=== PATIENT | male | born 1975 | race Two or more races ===

== ENCOUNTER 2024-07-02 20:46 | Inpatient (IN) | payer MEDICAID, OTHER ==
[~2024-07-02] VITALS: Ht 182.9 cm; Wt 65.2 kg
--- NOTE | 2024-07-02 21:01 | ED.PDOC ---
Altered Mental Status HPI Comments 49 year old male came to ER via EMS due to ALOC. Per EMS, patient was picked up at home wherein patient was noted to acting altered, confused and disoriented the past few days. Noted increase in thirst, urination among others. Does have history of Diabetes and takes Metformin. Upon arrival of paramedics noted blood sugar read "high". No further information could be taken at this time of care. Chief Complaint: ALOC Time Seen by MD: 21:01 Reviewed Notes: Appeals Rn Notes Allergies: Coded Allergies: NO KNOWN ALLERGIES (Unverified , 07/02/24) Information Source: Emergency Med Personnel Mode of Arrival: EMS Severity: Unable to Care for Self, Unresponsive Timing: Hours Duration: Since onset Prehospital treatment: Accucheck Quality: Decreased Alertness, Change in Behavior, Confusion History of: Diabetes Past Medical History PAST MEDICAL HISTORY: DM Surgical History: Pt Confused Family History Family History: Pt Confused Social History Smoker: Pt Confused Alcohol: Pt Confused Drugs: Pt Confused Lives In: Home Unable to Obtain due to: Altered Mental Status Physical Exam General Appearance: Mild Distress, Other (arousable to pain) HEENT: Normal ENT Inspection, Pharynx Normal, TMs Normal Neck: Full Range of Motion, Non-Tender, Normal, Normal Inspection Respiratory: Chest Non-Tender, Lungs Clear, No Accessory Muscle Use, No Respiratory Distress, Normal Breath Sounds Cardiovascular: No Edema, No JVD, No Murmur, No Gallop, Normal Peripheral Pulses, Regular Rate/Rhythm Breast Exam: Deferred Gastrointestinal: No Organomegaly, Non Tender, No Pulsatile Mass, Normal Bowel Sounds, Soft Genitalia: Deferred Pelvic: Deferred Rectal: Deferred Extremities: No calf tenderness, Normal capillary refill, Normal range of motion, Non-tender, No pedal edema, Other (multiple foot ulcerations) Musculoskeletal : Apperance: Normal Neurologic: Depressed Affect, Disoriented, Dizziness, Other (arousable to pain') Cerebellar Function: NOT DONE Reflexes: NOT DONE Skin: Dry, Normal Color, Warm Lymphatic: No Adenopathy Was a procedure done? Was a procedure done?: No Differential Diagnosis (ALOC) Differential Diagnosis: Dehydration, DKA, Encephalopathy, Sepsis X-Ray, Labs, Meds, VS Vital Signs Date Time Temp Pulse Resp B/P (MAP) Pulse Ox O2 Delivery O2 Flow Rate FiO2 07/02/24 21:30 65 21 94/43 (60) 100 07/02/24 21:15 66 30 98 Room Air* 0 21 07/02/24 21:15 98.2 66 30 99/53 (68) 98 98.2 07/02/24 21:05 67 07/02/24 20:52 66 07/02/24 20:50 98.7 64 24 93/64 (74) 99 Lab Test 07/02/24 21:50 07/02/24 21:15 07/02/24 20:57 Range/Units Sodium Level 129 L 136-145 mmol/L Potassium Level 5.6 *H 3.5-5.1 mmol/L Chloride Level 98 98-107 mmol/L Carbon Dioxide Level < 10 *L 20-31 mmol/L Anion Gap 21.27929 H 5-15 Blood Urea Nitrogen 58 H 9-23 mg/dL Creatinine 1.54 H 0.700-1.30 mg/dL Glomerular Filtration Rate Calc 55 >90 mL/min BUN/Creatinine Ratio 37.7 H 10.0-20.0 Serum Glucose 724 *H 74-106 mg/dL Calcium Level 8.9 8.7-10.4 mg/dL Phosphorus Level 4.4 2.4-5.1 mg/dL Magnesium Level 3.0 H 1.6-2.6 mg/dL Total Bilirubin 0.2 0.2-1.0 mg/dL Aspartate Amino Transferase (AST) 13 13-40 U/L Alanine Aminotransferase (ALT) 12 7-40 U/L Alkaline Phosphatase 101 46-116 U/L Total Protein 5.8 5.7-8.2 g/dL Albumin 3.3 3.2-4.8 g/dL Blood Gas Specimen Type Venous Blood Gas Sample Site Vbg - n/a Blood Gas Patient Temperature 37.0 Arterial Blood Date Drawn [id number] Serge Test N/a Venous Blood pH 7.179 *L 7.320-7.430 Venous Blood pCO2 at Patient Temp 17.8 L 38.0-54.0 mmHg Venous Blood pO2 at Patient Temp 70.7 H 23.0-48.0 mmHg Venous Blood HCO3 6.5 L 22.0-29.0 mmol/L Venous Blood Base Excess -19.6 L -2.0-3.0 mmol/L Blood Gas Liter Flow 2.00 Blood Gas Modality Nasal cannula FiO2 % 28.0 Blood Gas Critical Value Read Back Yes Blood Gas Notified Whom Dr. willis Blood Gas Notified Time [id number] Blood Gas Notified By Registered Nurse Ambulatory corrine patton White Blood Count 5.6 4.4-10.8 10^3/uL Red Blood Count 5.04 4.5-5.90 10^6/uL Hemoglobin 15.3 13.5-17.5 g/dL Hematocrit 47.0 41.0-53.0 % Mean Corpuscular Volume 93.3 80.0-100.0 fL Mean Corpuscular Hemoglobin 30.3 28.0-32.0 pg Mean Corpuscular Hemoglobin Concent 32.5 32.0-36.0 g/dL Red Cell Distribution Width 15.1 H 11.8-14.3 % Platelet Count 195 140-450 10^3/uL Mean Platelet Volume 9.9 6.9-10.8 fL Neutrophils (%) (Auto) 91.4 H 37.0-80.0 % Lymphocytes (%) (Auto) 3.1 L 10.0-50.0 % Monocytes (%) (Auto) 5.2 0.0-12.0 % Eosinophils (%) (Auto) 0.1 0.0-7.0 % Basophils (%) (Auto) 0.2 0.0-2.0 % Neutrophils # (Auto) 5.2 1.6-8.6 10 ^3/uL Lymphocytes # (Auto) 0.2 L 0.4-5.4 10 ^3/uL Monocytes # (Auto) 0.3 0-1.3 10 ^3/uL Eosinophils # (Auto) 0 0-0.8 10 ^3/uL Basophils # (Auto) 0 0-0.2 10 ^3/uL Nucleated Red Blood Cells 0.0 % Lactic Acid Level 1.0 0.4-2.0 mmol/L Beta-Hydroxybutyric Acid > 4.500 H < 0.4 mmol/L Current Medications Medications (Trade) Dose Ordered Sig/Sandra Route Start Time Stop Time Status Last Admin Sodium Chloride 2,000 ml @ 1,000 mls/hr Q2H ONCE IV 07/02/24 21:00 07/02/24 22:59 07/02/24 21:07 Ondansetron HCl (Zofran) 4 mg ONCE ONCE IV 07/02/24 21:00 07/02/24 21:01 DC 07/02/24 21:07 Famotidine (Pepcid Injection) 20 mg ONCE ONCE IV 07/02/24 21:00 07/02/24 21:01 DC 07/02/24 21:08 Lactated Ringer's 2,000 ml @ 1,000 mls/hr Q2H ONCE IV 07/02/24 22:15 07/03/24 00:14 07/02/24 22:17 Time of 1ST Reevaluation: 20:55 Reevaluation 1ST: Unchanged Patient Education/Counseling: Pt Unresponsive (altered) Family Education/Counseling: No Family Present Departure 1 Departure Time of Disposition: 22:37 (She is in DKA and is critically ill. Starting patient on insulin drip receiving fluids. We will admit the patient to the ICU for further management.) Impression: Primary Impression: DKA, type 2, not at goal Additional Impressions: AMS (altered mental status) Qualified Codes: R41.0 - Disorientation, unspecified Nausea & vomiting Qualified Codes: R11.12 - Projectile vomiting Disposition: ADMITTED INPATIENT Admit to: ICU Condition: Critical Critical Care Note Critical Care Time?: Yes (45 min-critical care time only) Critical care comment: DKA Authorized and Performed by: Alice Willis MD Total critical care time: Approximately 44 minutes Due to a high probability of clinically significant, life threatening deterioration, the patient required my highest level of preparedness to intervene emergently and I personally spent this critical care time directly and personally managing the patient. This critical care time included obtaining a history; examining the patient; pulse oximetry; ordering and review of studies; arranging urgent treatment with development of a management plan; evaluation of patient's response to treatment; frequent reassessment; and, discussions with other providers. This critical care time was performed to assess and manage the high probability of imminent, life-threatening deterioration that could result in multi-organ failure. It was exclusive of separately billable procedures and treating other patients and teaching time. Please see my other sections and the rest of the note for further information on patient assessment and treatment. Stability Stability form required: No Heart Score Heart Score: Heart Score Response (Comments) Value History N/A 0 EKG N/A 0 Age N/A 0 Risk Factors N/A 0 Troponin N/A 0 Total 0 I personally scribed for ALICE WILLIS MD ([email or web address]) on 07/02/24 at 21:01. Electronically submitted by Stefano Angel ([facility]). ALICE WILLIS MD Jul 02, 2024 21:01
[2024-07-02] MEDS: ONDANSETRON HCL 4 MG/2 ML VIAL IV ONE (21:07)
[2024-07-02] MEDS: SODIUM CHLORIDE 0.9% 2,000 ML IV ONE (21:07)
[2024-07-02] MEDS: FAMOTIDINE (10MG/ML) 2ML VL IV ONE (21:08)
[2024-07-02 21:15] VITALS: PULSE 66; RESP 30; O2SAT 98
--- NOTE | 2024-07-02 21:29 | DVH ---
CHEST RADIOGRAPH Indication:ams Technique: Single frontal view of the chest was obtained COMPARISON: None FINDINGS: Lines and Tubes: None Lungs: Clear Pleura: No effusion. No pneumothorax. Cardiomediastinal contours: Unremarkable Bones: Unremarkable IMPRESSION: 1. No acute disease.
[2024-07-02 21:32] LABS: Basophils # (auto) 0 10 ^3/uL (0-0.2); Basophils % (auto) 0.2 % (0.0-2.0); Eosinophils # (auto) 0 10 ^3/uL (0-0.8); Eosinophils % (auto) 0.1 % (0.0-7.0); Hemoglobin 15.3 g/dL (13.5-17.5); Lymphocytes # (auto) 0.2 10 ^3/uL (0.4-5.4); Lymphocytes % (auto) 3.1 % (10.0-50.0); Mean Corpuscular Hemoglobin 30.3 pg (28.0-32.0); Mean Corpuscular Hgb Conc. 32.5 g/dL (32.0-36.0); Mean Corpuscular Volume 93.3 fL (80.0-100.0); Monocytes # (auto) 0.3 10 ^3/uL (0-1.3); Monocytes % (auto) 5.2 % (0.0-12.0); Neutrophils # (auto) 5.2 10 ^3/uL (1.6-8.6); Neutrophils % (auto) 91.4 % (37.0-80.0); Platelet Count (auto) 195 10^3/uL (140-450); Red Blood Cells 5.04 10^6/uL (4.5-5.90); Red Cell Distribution Width 15.1 % (11.8-14.3); White Blood Cell 5.6 10^3/uL (4.4-10.8)
[2024-07-02] MEDS: LACTATED RINGER'S 2,000 ML IV ONE (22:17)
[2024-07-02 22:21] LABS: Alanine Aminotransferase 12 U/L (7-40); Albumin 3.3 g/dL (3.2-4.8); Alkaline Phosphatase 101 U/L (46-116); Anion Gap 21.00001 (5-15); Aspartate Aminotransferase 13 U/L (13-40); BUN/Creatinine Ratio 37.7 (10.0-20.0); Bilirubin, Total 0.2 mg/dL (0.2-1.0); Blood Urea Nitrogen 58 mg/dL (9-23); Calcium 8.9 mg/dL (8.7-10.4); Chloride 98 mmol/L (98-107); Phosphorus 4.4 mg/dL (2.4-5.1); Sodium 129 mmol/L (136-145); Total Protein 5.8 g/dL (5.7-8.2)
[2024-07-02 22:33] LABS: Carbon Dioxide < 10 mmol/L (20-31); Glucose 724 mg/dL (74-106); Potassium 5.6 mmol/L (3.5-5.1)
[2024-07-02] MEDS ORDERED: INSULIN LANTUS (GLARGINE) 1 /0.01ml (100units/ml) SC ONE (22:45)
[2024-07-02] MEDS ORDERED: SODIUM CHLORIDE 0.9% 1,000 ML IV SCH (22:45)
[2024-07-02] MEDS ORDERED: DEXTROSE (50%) 50ML SYRG IV PRN (22:45)
[2024-07-02] MEDS: ROCURONIUM 10MG/ML 10ML VIAL IV ONE (22:45)
[2024-07-02] MEDS: PROPOFOL 100 ML IV ONE (22:55)
[2024-07-02] MEDS: INSULIN DRIP 100 UNIT/100ML 100 ML IV SCH (23:00)
[2024-07-02] MEDS: PROPOFOL 100 ML IV SCH (23:03)
[2024-07-02] MEDS ORDERED: NITROGLYCERIN 0.4 MG SL TAB SL PRN (23:15)
[2024-07-02] MEDS ORDERED: MORPHINE SULFATE INJ 2 MG/ml SYRG IV PRN (23:15)
[2024-07-02] MEDS: NOREPINEPHRINE 8 MG/250ML KIT 250 ML IV SCH (23:18)
[2024-07-02] MEDS: ETOMIDATE (2MG/ML) 20ML VIAL IV ONE (23:19)
[2024-07-02 23:23] LABS: Urine Bacteria None Seen /hpf (None Seen)
--- NOTE | 2024-07-02 23:29 | DVHHP2 ---
History of Present Illness Reason for Visit: Diabetic ketoacidosis History of Present Illness The patient is a 49-year-old male with past medical history of diabetes mellitus who presented to [facility] ED for evaluation of altered level of consciousness. As reported by EMS, patient was picked up at home due to change in mental status, altered, confused, disoriented for the past few days and was noted to have increased thirst, urination, and polyphagia. Patient was seen and evaluated in the ED, laboratory data shows WBC 5.6, platelets 195, sodium 129, potassium 5.6, BUN 58, creatinine 1.54, glucose 724, anion gap 21, acetone greater > 4.500, magnesium 3.0, blood pressure 84/53, heart rate 64, temperature 98.2 F, O2 saturation 99% on oxygen. Patient was started on insulin drip, subsequently intubated, please see medication section in the computer. On my assessment, patient remains altered, no diaphoresis, no palpitations, no loss of consciousness, no nausea, no vomiting, no fever, no chills. Patient was admitted for further evaluation medical management. Past Medical History Diabetes mellitus Past Surgical History No surgical history on file Family History Reviewed, noncontributory to the management of this case. Past Social History The patient lives at home, denies smoking, alcohol or illicit drugs abuse. Review of Systems Constitutional: Yes: Weakness; No: Fever, Chills, Sweats, Malaise, Other Eyes: No: Pain, Vision change, Conjunctivae inflammation, Eyelid inflammation, Other, Redness ENT: No: Ear pain, Ear discharge, Nose pain, Nose discharge, Nose congestion, Mouth pain, Mouth swelling, Throat pain, Throat swelling, Other Respiratory: No: Cough, Dry, Shortness of breath, SOB with excertion, Wheezing, Hemoptysis, Pleuritic Pain, Sputum, Wheezing, Other Cardiovascular: No: Chest Pain, Palpitations, Orthopnea, Paroxysmal Noc. Dyspnea, Edema, Lt Headedness, Other Gastrointestinal: No: Nausea, Vomiting, Abdominal Pain, Diarrhea, Constipation, Melena, Hematochezia, Other Genitourinary: No Dysuria, No Frequency, No Incontinence, No Hematuria, No Retention, No Other Musculoskeletal: No: other, neck pain, shoulder pain, arm pain, back pain, hand pain, leg pain, foot pain Skin: No: Rash, Lesions, Jaundice, Bruising, Other Neurological: Other (Altered mental status); No: Weakness, Numbness, Incoordination, Change in speech, Confusion, Seizures Allergies: Coded Allergies: NO KNOWN ALLERGIES (Unverified , 07/02/24) Medications Current Medications Medications Dose Ordered Sig/Sandra Route Start Time Stop Time Status Last Admin Dose Admin Sodium Chloride 1,000 ml @ 500 mls/hr Q2H IV 07/02/24 22:45 07/03/24 02:44 Sodium Chloride 1,000 ml @ 250 mls/hr Q4H IV 07/03/24 02:45 07/03/24 04:44 Sodium Chloride 1,000 ml @ 150 mls/hr Q6H40M IV 07/03/24 04:45 Insulin Human (Reg)/Sodium Chloride 100 ml @ 0.5 mls/hr Q24H IV 07/02/24 22:45 Dextrose 50 ml UD PRN IV 07/02/24 22:45 Diagnostic Test (Pha) 1 strip Q90MIN 07/03/24 00:00 Insulin Glargine 15 units DAILY SC 07/03/24 10:00 Propofol 100 ml @ 2.181 mls/ hr Q24H IV 07/02/24 22:45 Norepinephrine Bitartrate 250 ml @ 3.75 mls/hr Q24H IV 07/02/24 23:00 Famotidine 20 mg Q12HR IV 07/03/24 10:00 UNV Ondansetron HCl 4 mg Q4HP PRN IV 07/02/24 23:15 UNV Nitroglycerin 0.4 mg Q5MINP PRN SL 07/02/24 23:15 UNV Morphine Sulfate 2 mg Q30M PRN IV 07/02/24 23:15 UNV Exam Vital Signs Vital Signs Date Time Temp Pulse Resp B/P (MAP) Pulse Ox O2 Delivery O2 Flow Rate FiO2 07/02/24 21:30 65 21 94/43 (60) 100 07/02/24 21:15 Room Air* 0 21 07/02/24 21:15 98.2 98.2 General Appearance: Alert, Cooperative, No acute distress, Other (Oriented x1) HEENT: Atraumatic, PERRLA, EOMI, Mucous membr. moist/pink Respiratory: Clear to auscultation, Normal air movement Cardiovascular: Regular rate, Normal S1, Normal S2, No murmurs Abdominal: Normal bowel sounds, Soft, No tenderness, No hepatospenomegaly, No masses Extremities: No clubbing, No cyanosis, No edema, Normal pulses, No tenderness/swelling Skin: No rashes, No breakdown, No significant lesion Neuro: Normal tone, Sensation intact, Cranial nerves 3-12 NL, Reflexes 2+, Other (Generalized weakness) Psych/Mental Status: Mood NL, Other (Altered mental status) Labs/Xrays Labs Test 07/02/24 23:08 07/02/24 21:50 07/02/24 21:15 07/02/24 20:57 Range/Units Sodium Level 129 L 136-145 mmol/L Potassium Level 5.6 *H 3.5-5.1 mmol/L Chloride Level 98 98-107 mmol/L Carbon Dioxide Level < 10 *L 20-31 mmol/L Anion Gap 21.15249 H 5-15 Blood Urea Nitrogen 58 H 9-23 mg/dL Creatinine 1.54 H 0.700-1.30 mg/dL Glomerular Filtration Rate Calc 55 >90 mL/min BUN/Creatinine Ratio 37.7 H 10.0-20.0 Serum Glucose 724 *H 74-106 mg/dL Calcium Level 8.9 8.7-10.4 mg/dL Phosphorus Level 4.4 2.4-5.1 mg/dL Magnesium Level 3.0 H 1.6-2.6 mg/dL Total Bilirubin 0.2 0.2-1.0 mg/dL Aspartate Amino Transferase (AST) 13 13-40 U/L Alanine Aminotransferase (ALT) 12 7-40 U/L Alkaline Phosphatase 101 46-116 U/L Total Protein 5.8 5.7-8.2 g/dL Albumin 3.3 3.2-4.8 g/dL Blood Gas Specimen Type Venous Blood Gas Sample Site Vbg - n/a Blood Gas Patient Temperature 37.0 Arterial Blood Date Drawn Serge Test N/a Venous Blood pH 7.179 *L 7.320-7.430 Venous Blood pCO2 at Patient Temp 17.8 L 38.0-54.0 mmHg Venous Blood pO2 at Patient Temp 70.7 H 23.0-48.0 mmHg Venous Blood HCO3 6.5 L 22.0-29.0 mmol/L Venous Blood Base Excess -19.6 L -2.0-3.0 mmol/L Blood Gas Liter Flow 2.00 Blood Gas Modality Nasal cannula FiO2 % 28.0 Blood Gas Critical Value Read Back Yes Blood Gas Notified Whom Dr. willis Blood Gas Notified Time [id number] Blood Gas Notified By Information Security Specialist corrine patton White Blood Count 5.6 4.4-10.8 10^3/uL Red Blood Count 5.04 4.5-5.90 10^6/uL Hemoglobin 15.3 13.5-17.5 g/dL Hematocrit 47.0 41.0-53.0 % Mean Corpuscular Volume 93.3 80.0-100.0 fL Mean Corpuscular Hemoglobin 30.3 28.0-32.0 pg Mean Corpuscular Hemoglobin Concent 32.5 32.0-36.0 g/dL Red Cell Distribution Width 15.1 H 11.8-14.3 % Platelet Count 195 140-450 10^3/uL Mean Platelet Volume 9.9 6.9-10.8 fL Neutrophils (%) (Auto) 91.4 H 37.0-80.0 % Lymphocytes (%) (Auto) 3.1 L 10.0-50.0 % Monocytes (%) (Auto) 5.2 0.0-12.0 % Eosinophils (%) (Auto) 0.1 0.0-7.0 % Basophils (%) (Auto) 0.2 0.0-2.0 % Neutrophils # (Auto) 5.2 1.6-8.6 10 ^3/uL Lymphocytes # (Auto) 0.2 L 0.4-5.4 10 ^3/uL Monocytes # (Auto) 0.3 0-1.3 10 ^3/uL Eosinophils # (Auto) 0 0-0.8 10 ^3/uL Basophils # (Auto) 0 0-0.2 10 ^3/uL Nucleated Red Blood Cells 0.0 % Lactic Acid Level 1.0 0.4-2.0 mmol/L Beta-Hydroxybutyric Acid > 4.500 H < 0.4 mmol/L PATIENT: BUD MOORE ACCT: [id number] UNIT: [id number] : 1975 LOC: ER ROOM / BED: / AGE / SEX: 49 / M ADM STATUS: REG ER SERVICE 49 ORDERING PHYSICIAN: ALICE WILLIS MD PROCEDURE(s): CXRP - CHEST PORTABLE REASON: ams ORDER NUMBER(s): [id number], ACCESSION NUMBER(s): [id number] CHEST RADIOGRAPH Indication:ams Technique: Single frontal view of the chest was obtained COMPARISON: None FINDINGS: Lines and Tubes: None Lungs: Clear Pleura: No effusion. No pneumothorax. Cardiomediastinal contours: Unremarkable Bones: Unremarkable IMPRESSION: 1. No acute disease. ORDERING PHYSICIAN: ALICE WILLIS MD PROCEDURE(s): CXRP - CHEST PORTABLE REASON: Post intubation placement / OG placement ORDER NUMBER(s): [id number], ACCESSION NUMBER(s): [id number] CHEST RADIOGRAPH Indication:Post intubation placement / OG placement Technique: Single frontal view of the chest was obtained COMPARISON: XY CHEST PORTABLE on DOS: 07/02/24 FINDINGS: Lines and Tubes: Endotracheal tube terminates 3.3 cm above the nat. Enteric tube courses below the diaphragm with tip collimated from view. Lungs: Clear Pleura: No effusion. No pneumothorax. Cardiomediastinal contours: Unremarkable Bones: Unremarkable IMPRESSION: 1. No acute disease. 2. Lines and tubes as above. Assessment/Plan Assessment/Plan Diabetic ketoacidosis Hypotension Acute renal injury Electrolyte imbalance Disorientation, unspecified Nausea & vomiting Projectile vomiting AMS (altered mental status) Acute respiratory distress Plan 1. Admit to intensive care unit 2. Breathing treatment 3. Pain control management 4. Management of fluids and electrolytes 5. Consultation for pulmonology/hospitalist 6. Diagnostic tests head CT 7. DVT prophylaxis-on aspirin 8. Repeat labs CBC, CMP in a.m. 9. Continue with current medical management 10. Treatment plan discussed with patient and RN. Patient verbalized understanding. Plan discussed with: Patient, Other (RN) My Orders Orders - LARON CORDOVA DNP Procedure Category Date Status Time *Consult CONS 07/02/24 Transmitted / 23:15 * Cardiology Consult CONS 07/02/24 Transmitted 23:15 Sodium Bicarb PHA 07/02/24 Logged 50meq/50ml Vial 23:15 Famotidine Injection PHA 07/03/24 Logged (Pepcid Injection) 10:00 Admit ADMIT 07/02/24 Transmitted 23:15 Allergies [facility] 07/02/24 In Process 23:15 Code Status CODE 07/02/24 Transmitted 23:15 Oxygen Per Hour RT 07/02/24 Transmitted 23:15 Ondansetron Hcl [facility] 07/02/24 Logged (Zofran) 23:15 Fall Risk Precautions [facility] 07/02/[address] 23:15 Complete Blood Count LAB 07/03/24 Verified 04:00 Comprehensive LAB 07/03/24 Verified Metabolic Panel 04:00 Npo (Nothing By DIET 07/03/24 Transmitted Mouth) Diet Breakfast Condition: Critical [facility] 07/02/24 In Process 23:15 Sequential [facility] 07/02/24 In Process Compression Device Nitroglycerin [facility] 07/02/24 Logged Sublingual (Ntrostat 23:15 Morphine Sulfate [facility] 07/02/24 Logged Injection 23:15 Notify Md Of Changes [facility] 07/02/24 In Process From Base 23:15 Hand Surgeon For [facility] 07/02/24 In Process 24 Hours 23:15 Emergency Dysrhythmia [facility] 07/02/24 In Process Protocol 23:15 Rhythm Strips Once [facility] 07/02/24 In Process Every Shift 23:15 Oxygen By Nasal RT 07/02/24 Transmitted Cannula 23:15 Problem List: (1) Diabetic keto-acidosis (2) Acute renal injury (3) Electrolyte imbalance (4) Hypotension (5) Nausea & vomiting (6) AMS (altered mental status) (7) Disorientation, unspecified (8) Projectile vomiting (9) Acute respiratory distress Date of Service: Jul 02, 2024 Billing Provider: LARON CORDOVA DNP Common Visit Codes: 07440-JILHVRP INP/OBS CARE (HIGH) LARON CORDOVA DNP Jul 02, 2024 23:29
--- NOTE | 2024-07-02 23:42 | DVH ---
CHEST RADIOGRAPH Indication:Post intubation placement / OG placement Technique: Single frontal view of the chest was obtained COMPARISON: XY CHEST PORTABLE on DOS: 07/02/24 FINDINGS: Lines and Tubes: Endotracheal tube terminates 3.3 cm above the nat. Enteric tube courses below the diaphragm with tip collimated from view. Lungs: Clear Pleura: No effusion. No pneumothorax. Cardiomediastinal contours: Unremarkable Bones: Unremarkable IMPRESSION: 1. No acute disease. 2. Lines and tubes as above.
[2024-07-02 23:45] LABS: Urine Blood Negative /uL (Negative); Urine Clarity Clear (Clear); Urine Color Light-Yellow (Yellow); Urine Protein, UAD Negative (Negative); Urine Specific Gravity 1.025 (1.001-1.035); Urine Urobilinogen Normal (Negative); Urine WBC 1 /hpf (0 - 3)
[2024-07-03] VITALS (31 sets, daily range): BP systolic 83–142; BP diastolic 50–73; PULSE 72–120; RESP 20–37; TEMP 99.3–100.6; O2SAT 100
[2024-07-03] MEDS ORDERED: ACCU-CHEK COMFORT CURVE STRIP VI SCH
--- NOTE | 2024-07-03 00:05 | ED.PDOC ---
Was a procedure done? Was a procedure done?: Yes Sedation Sedation?: No Central Line Recorder of insertion practice: School Photographer Occupation of labor economics teacher: Attending Physician, Name of labor economics teacher (Alice Monaco MD) Indication: Hypotension, Volume resuscitation Room prepared for procedure: Yes School Photographer performed hand hygien: Yes Maximal sterile barrier precau: Mask/Eye shield, Sterlie gloves, Large sterlie drape Skin Preparation: Chlorhexidine gluconate Skin preparation completely dr: Yes Insertion site: Right, Femoral Central line catheter type: [id number]-[id number] dialysis Number of lumens: 3 Central line exchanged over a: Yes Antiseptic ointment applied to: Yes Post Assessment: Proper placement Informed consent obtained: No Risks/benefits/alt described: No Intubation Indication: Altered Mental Status Prep: Preoxygenation Pretreated with: Other (Etomidate) Medicated with: Other (Rocuronium) Intubation Approach: Orotracheal Intubation size: cm (8) Informed consent obtained: No Risks/benefits/alt described: No ALICE MONACO MD Jul 03, 2024 00:05
[2024-07-03 00:21] LABS: Base Excess -23.2 mmol/L (-2.0-3.0)
[2024-07-03 00:38] LABS: Chloride 101 mmol/L (98-107); Potassium 5.3 mmol/L (3.5-5.1); Sodium 131 mmol/L (136-145)
[2024-07-03 00:39] LABS: Anion Gap 20.00001 (5-15)
[2024-07-03 00:44] LABS: BUN/Creatinine Ratio 30.2 (10.0-20.0)
[2024-07-03 00:45] LABS: Blood Urea Nitrogen 45 mg/dL (9-23)
[2024-07-03 00:46] LABS: Carbon Dioxide < 10 mmol/L (20-31); Glucose 644 mg/dL (74-106)
[2024-07-03] MEDS ORDERED: DEXTROSE (50%) 50ML SYRG IV PRN ×2 (01:15→12:30)
[2024-07-03] MEDS: MIDAZOLAM DRIP 50 mg/50mL 50 ML IV ONE (01:16)
[2024-07-03] MEDS: INSULIN LANTUS (GLARGINE) 1 /0.01ml (100units/ml) SC ONE (01:22)
[2024-07-03] MEDS: SODIUM BICARB 8.4% 50Meq/50ml SYR Vial IV ONE (01:34)
[2024-07-03] MEDS: ACCU-CHEK COMFORT CURVE STRIP VI SCH ×2 (01:35→16:49)
[2024-07-03] MEDS: INSULIN DRIP 100 UNIT/100ML 100 ML IV SCH (01:39)
[2024-07-03] MEDS: MIDAZOLAM DRIP 50 mg/50mL 50 ML IV SCH (01:40)
[2024-07-03 02:12] LABS: Base Excess -15.6 mmol/L (-2.0-3.0)
[2024-07-03] MEDS ORDERED: SODIUM CHLORIDE 0.9% 1,000 ML IV SCH ×2 (02:45→04:45)
[2024-07-03 04:04] LABS: Chloride 104 mmol/L (98-107); Potassium 5.1 mmol/L (3.5-5.1); Sodium 137 mmol/L (136-145)
[2024-07-03 04:05] LABS: Calcium 9.2 mg/dL (8.7-10.4)
[2024-07-03 04:07] LABS: Anion Gap 19 (5-15); Carbon Dioxide 14 mmol/L (20-31)
[2024-07-03 04:10] LABS: BUN/Creatinine Ratio 32.9 (10.0-20.0); Blood Urea Nitrogen 52 mg/dL (9-23)
[2024-07-03 04:13] LABS: Glucose 510 mg/dL (74-106)
[2024-07-03] MEDS: PHENYLEPHRINE IV 250 ML IV SCH (04:37)
[2024-07-03] MEDS: ACETAMINOPHEN 325 MG TAB PO PRN (05:37)
[2024-07-03 06:10] LABS: Basophils # (auto) 0 10 ^3/uL (0-0.2); Basophils % (auto) 0.4 % (0.0-2.0); Eosinophils # (auto) 0 10 ^3/uL (0-0.8); Eosinophils % (auto) 0.3 % (0.0-7.0); Hematocrit 50.6 % (41.0-53.0); Hemoglobin 16.7 g/dL (13.5-17.5); Lymphocytes # (auto) 0.5 10 ^3/uL (0.4-5.4); Lymphocytes % (auto) 13.2 % (10.0-50.0); Mean Corpuscular Hemoglobin 29.3 pg (28.0-32.0); Monocytes # (auto) 0.3 10 ^3/uL (0-1.3); Monocytes % (auto) 7.3 % (0.0-12.0); Neutrophils # (auto) 3.3 10 ^3/uL (1.6-8.6); Neutrophils % (auto) 78.8 % (37.0-80.0); Nucleated Red Blood Cells % 0.3 %; Platelet Count (auto) 180 10^3/uL (140-450); Red Blood Cells 5.68 10^6/uL (4.5-5.90); Red Cell Distribution Width 14.6 % (11.8-14.3); White Blood Cell 4.1 10^3/uL (4.4-10.8)
[2024-07-03 06:27] LABS: Alanine Aminotransferase 14 U/L (7-40); Albumin 3.5 g/dL (3.2-4.8); Alkaline Phosphatase 97 U/L (46-116); Anion Gap 19 (5-15); Aspartate Aminotransferase 15 U/L (13-40); BUN/Creatinine Ratio 34.4 (10.0-20.0); Blood Urea Nitrogen 54 mg/dL (9-23); Calcium 9.3 mg/dL (8.7-10.4); Carbon Dioxide 14 mmol/L (20-31); Chloride 105 mmol/L (98-107); Potassium 4.8 mmol/L (3.5-5.1); Sodium 138 mmol/L (136-145)
[2024-07-03 06:28] LABS: Bilirubin, Total 0.2 mg/dL (0.2-1.0); Total Protein 6.1 g/dL (5.7-8.2)
[2024-07-03 06:29] LABS: Glucose 420 mg/dL (74-106)
[2024-07-03] MEDS: IBUPROFEN 100MG/5ML ORAL SUSP 100 MG/5 ML UD GT PRN (06:59)
[2024-07-03 09:37] LABS: Base Excess -6.3 mmol/L (-2.0-3.0)
[2024-07-03] MEDS ORDERED: INSULIN LANTUS (GLARGINE) 1 /0.01ml (100units/ml) SC SCH (10:00)
--- NOTE | 2024-07-03 10:01 | DVHINCON2 ---
[facility] 07/03/24 1001: Date Seen: Jul 03, 2024 Referring Physician IZAIAH Cardona Reason for Consultation Hypotension History of Present Illness This is a 49-year-old man who presented to the emergency room via EMS with a chief complaint of an altered level of consciousness since yesterday. At time of assessment, the patient was found chemically sedated, endotracheally intubated with FiO2 30% PEEP 5, and on two vasopressors. 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 Upon EMS arrival he was found with a blood sugar level reading "High" and administered NS IV x 1. Further workup in the emergency room found the patient with a blood sugar level of 724 mg/dL and an anion gap >20. A 12-lead electrocardiogram revealed a normal sinus rhythm. Significant medical history includes [id number] diabetes mellitus. Past Medical History Past medical history reviewed. No other significant than mentioned above. Past Surgical History Past surgical history reviewed. No other significant than mentioned above. Family History Family history reviewed. Social History Per , there is no use of illicit drugs, alcohol, or tobacco use. Allergies: Coded Allergies: NO KNOWN ALLERGIES (Unverified , 07/02/24) Home Meds Home medications reviewed. Current Medications Current Medications Medications (Trade) Dose Ordered Sig/Sandra Route PRN Reason Start Time Stop Time Status Last Admin Sodium Chloride 1,000 ml @ 500 mls/hr Q2H IV 07/02/24 22:45 07/03/24 01:16 DC Sodium Chloride 1,000 ml @ 250 mls/hr Q4H IV 07/03/24 02:45 07/03/24 01:16 DC Sodium Chloride 1,000 ml @ 150 mls/hr Q6H40M IV 07/03/24 04:45 07/03/24 01:16 DC Insulin Human (Reg)/Sodium Chloride 100 ml @ 0.5 mls/hr Q24H IV 07/02/24 22:45 07/03/24 01:16 DC 07/02/24 23:00 Dextrose 50 ml UD PRN IV SEE CURRENT ALGORITHM or SCALE 07/02/24 22:45 07/03/24 01:16 DC Diagnostic Test (Pha) (Accu-Chek Comfort Curve T) 1 strip Q90MIN 07/03/24 00:00 07/03/24 01:16 DC Insulin Glargine (Lantus) 15 units DAILY SC 07/03/24 10:00 07/03/24 01:16 DC Propofol 100 ml @ 2.181 mls/ hr Q24H IV 07/02/24 22:45 07/02/24 23:03 Norepinephrine Bitartrate 250 ml @ 3.75 mls/hr Q24H IV 07/02/24 23:00 07/03/24 05:40 Famotidine (Pepcid Injection) 20 mg Q12HR IV 07/03/24 10:00 Ondansetron HCl (Zofran) 4 mg Q4HP PRN IV NAUSEA / VOMITING 07/02/24 23:15 Nitroglycerin (Ntrostat Sublingual) 0.4 mg Q5MINP PRN SL FOR CHEST PAIN 07/02/24 23:15 Morphine Sulfate 2 mg Q30M PRN IV FOR CHEST PAIN 07/02/24 23:15 Dextrose 50 ml UD PRN IV SEE CURRENT ALGORITHM or SCALE 07/03/24 01:15 Diagnostic Test (Pha) (Accu-Chek Comfort Curve T) 1 strip Q90MIN 07/03/24 01:30 07/03/24 09:18 Insulin Human (Reg)/Sodium Chloride 100 ml @ 0.5 mls/hr Q24H IV 07/03/24 01:15 07/03/24 07:30 Insulin Glargine (Lantus) 15 units DAILY SC 07/04/24 10:00 Midazolam HCl 50 ml @ 1 mls/hr Q24H IV 07/03/24 01:15 07/03/24 08:07 Phenylephrine HCl 250 ml @ 30 mls/hr Q8H20M IV 07/03/24 04:34 07/03/24 08:14 Acetaminophen (Tylenol Tablet) 650 mg Q6HP PRN PO PAIN SCALE 1-3 OR TEMP>100.4 07/03/24 05:27 07/03/24 05:37 Ibuprofen (MOTRIN 100MG/5 mL ORAL SUSP) 600 mg Q6HP PRN GT TEMP GREATER THAN 100.4 07/03/24 06:45 07/03/24 06:59 Review of Systems Constitutional: Polydipsia, polyuria Ears, Nose, & Throat: No symptom reported Eyes: No symptom reported Neurological: ALOC Pulmonary/Respiratory: No symptom reported Cardiovascular: No symptom reported Gastrointestinal: No symptom reported Genitourinary: No symptom reported Musculoskeletal: No symptom reported Skin: No symptom reported Psychiatric: No symptom reported Endocrine: No symptom reported Hemotologic/Lymphatic: No symptom reported Vital Signs Vital Signs Date Time Temp Pulse Resp B/P (MAP) Pulse Ox O2 Delivery O2 Flow Rate FiO2 07/03/24 09:20 89/52 07/03/24 08:30 115 31 100 30 07/03/24 08:00 100.9 07/02/24 21:15 Room Air* 0 Physical Exam General Appearance: Chemically sedated. Endotracheally intubated. On dual vasopressor Head Exam: Normal inspection Neck Exam: Normal inspection. Normal alignment Pulmonary/Respiratory: Clear bilateral breath sounds. Endotracheally intubated with FiO2 30% PEEP 5 Cardiovascular/Chest: Regular rate and rhythm. S1, S2. NSR. No murmurs. No JVD. Peripheral Pulses: 2+ Radial (R). 2+ Radial (L). 2+ Pedal (R). 2+ Pedal (L) Abdominal Exam: Normal bowel sounds. Soft. No hepatospenomegaly. No masses Ankle Exam: Negative ankle edema Lower extremities: Negative lower extremity edema Neuro/Mental Status: Chemically intubated. Withdrawn Thoughts/Psych: Unable to assess at this time Appearance: Withdrawn Skin Exam: Wounds to bilateral feet, see wound care pictures Labs/Diagnostic Data Labs Test 07/03/24 09:13 07/03/24 07:15 07/03/24 05:29 07/03/24 02:03 Range/Units POC Glucose 287 H 70-106 mg/dl Blood Gas Specimen Type Arterial Blood Gas Sample Site Right radial Blood Gas Patient Temperature 37.0 Arterial Blood Date Drawn [id number] Arterial Blood pH 7.364 7.350-7.450 Arterial Blood Partial Pressure CO2 31.8 L 35.0-48.0 mmHg Arterial Blood Partial Pressure O2 121.9 H 83.0-108.0 mmHg Arterial Blood HCO3 17.7 L 21.0-28.0 mmol/L Arterial Blood Oxygen Saturation 98.4 H 94.0-98.0 % Arterial Blood Base Excess -6.3 L -2.0-3.0 mmol/L Arterial Blood Oxyhemoglobin 96.8 94.0-98.0 % Arterial Blood Carboxyhemoglobin 1.1 0.5-1.5 % Arterial Blood Methemoglobin 0.5 0.0-1.5 % Serge Test Modified Blood Gas Total Hemoglobin 16.30 13.5-17.5 g/dL Blood Gas Set Respiration Rate 20.0 Blood Gas Modality Vent - ac Blood Gas Spontaneous Rate 20 FiO2 % 30.0 Blood Gas Tidal Volume 500.0 Blood Gas PEEP or CPAP 5.0 White Blood Count 4.1 #L 4.4-10.8 10^3/uL Red Blood Count 5.68 4.5-5.90 10^6/uL Hemoglobin 16.7 13.5-17.5 g/dL Hematocrit 50.6 41.0-53.0 % Mean Corpuscular Volume 89.0 # 80.0-100.0 fL Mean Corpuscular Hemoglobin 29.3 28.0-32.0 pg Mean Corpuscular Hemoglobin Concent 33.0 32.0-36.0 g/dL Red Cell Distribution Width 14.6 H 11.8-14.3 % Platelet Count 180 140-450 10^3/uL Mean Platelet Volume 9.0 6.9-10.8 fL Neutrophils (%) (Auto) 78.8 37.0-80.0 % Lymphocytes (%) (Auto) 13.2 10.0-50.0 % Monocytes (%) (Auto) 7.3 0.0-12.0 % Eosinophils (%) (Auto) 0.3 0.0-7.0 % Basophils (%) (Auto) 0.4 0.0-2.0 % Neutrophils # (Auto) 3.3 1.6-8.6 10 ^3/uL Lymphocytes # (Auto) 0.5 0.4-5.4 10 ^3/uL Monocytes # (Auto) 0.3 0-1.3 10 ^3/uL Eosinophils # (Auto) 0 0-0.8 10 ^3/uL Basophils # (Auto) 0 0-0.2 10 ^3/uL Nucleated Red Blood Cells 0.3 % Sodium Level 138 136-145 mmol/L Potassium Level 4.8 3.5-5.1 mmol/L Chloride Level 105 98-107 mmol/L Carbon Dioxide Level 14 L 20-31 mmol/L Anion Gap 19 H 5-15 Blood Urea Nitrogen 54 H 9-23 mg/dL Creatinine 1.57 H 0.700-1.30 mg/dL Glomerular Filtration Rate Calc 54 >90 mL/min BUN/Creatinine Ratio 34.4 H 10.0-20.0 Serum Glucose 420 *H 74-106 mg/dL Calcium Level 9.3 8.7-10.4 mg/dL Total Bilirubin 0.2 0.2-1.0 mg/dL Aspartate Amino Transferase (AST) 15 13-40 U/L Alanine Aminotransferase (ALT) 14 7-40 U/L Alkaline Phosphatase 97 46-116 U/L Total Protein 6.1 5.7-8.2 g/dL Albumin 3.5 3.2-4.8 g/dL Blood Gas Critical Value Read Back Yes Blood Gas Notified Whom Dr. willis Blood Gas Notified Time [id number] Blood Gas Notified By Supervisor Laundry corrine Rob 07/02/24 23:08 07/02/24 21:50 07/02/24 21:15 07/02/24 20:57 Range/Units Urine Color Light-yellow Yellow Urine Clarity Clear Clear Urine pH 5.0 5.0-9.0 Urine Specific [place] 1.025 1.001-1.035 Urine Protein Negative Negative Urine Ketones 4+ H Negative Urine Blood Negative Negative /uL Urine Nitrite Negative Negative Urine Bilirubin Negative Negative Urine Urobilinogen Normal Negative mg/dL Urine Leukocyte Esterase Negative Negative /uL Urine RBC <1 0 - 3 /hpf Urine WBC 1 0 - 3 /hpf Urine Squamous Epithelial Cells None seen <5 /hpf Urine Bacteria None seen None Seen /hpf Urine Glucose 4+ H Normal mg/dL Phosphorus Level 4.4 2.4-5.1 mg/dL Magnesium Level 3.0 H 1.6-2.6 mg/dL Venous Blood pH 7.179 *L 7.320-7.430 Venous Blood pCO2 at Patient Temp 17.8 L 38.0-54.0 mmHg Venous Blood pO2 at Patient Temp 70.7 H 23.0-48.0 mmHg Venous Blood HCO3 6.5 L 22.0-29.0 mmol/L Venous Blood Base Excess -19.6 L -2.0-3.0 mmol/L Blood Gas Liter Flow 2.00 Serum Osmolality 354 H 278-298 mOsm/kg Lactic Acid Level 1.0 0.4-2.0 mmol/L Beta-Hydroxybutyric Acid > 4.500 H < 0.4 mmol/L Assessment Hypovolemic shock Diabetic ketoacidosis Metabolic encephalopathy [id number] diabetes mellitus, HgbA1C >14% Hypertriglyceridemia Medical noncompliance Diabetic wounds to bilateral feet Plan/Recommendation We will continue the following plan/recommendations (Dr. Juan): * Echocardiogram to evaluate cardiac function * Vasopressors for hemodynamic support * Diabetic ketoacidosis treatment per primary care team * Initiate lipid-lowering agent * DVT/VTE prophylaxis * Wound care consult * Head CT/UDS Thank you for allowing us to participate in this patient's care. Please call if you have any questions or concerns. Critical care time: 40 min. This medical document was created using an electronic medical record system with voice recognition software and computerized dictation system. Although this document has been carefully reviewed, there might still be some phonetic and typographical errors. Occasional wrong-word or ``sound-alike substitutions may have occurred due to the inherent limitations of voice recognition software. These areas are purely typographical due to imperfections of the software programs and do not reflect any compromise in the patient's medical care. Please read the chart carefully and recognize, using context, where these substitutions have occurred. Plan discussed with: Spouse, Other Date of Service: Jul 03, 2024 Billing Provider: [facility] Common Codes: 07103-[id number] CARE 30-74 MIN INGRID JUAN MD 07/03/24 1552: Allergies: Coded Allergies: NO KNOWN ALLERGIES (Unverified , 07/02/24) Plan/Recommendation pt seen and examined in ER pt in shock/ dka check echo supportive care, IVF poor /guarded prognosis Date of Service: Jul 03, 2024 Billing Provider: INGRID JUAN MD Cardiology Common Codes: NOT BILLABLE [facility] Jul 03, 2024 10:01 INGRID JUAN MD Jul 03, 2024 15:52
[2024-07-03 10:17] LABS: LDL Cholesterol 50 mg/dL (< 100); Triglycerides 344 mg/dL (< 150)
[2024-07-03 10:19] LABS: Cholesterol 144 mg/dL (< 200); HDL Cholesterol 53 mg/dL (40-59)
[2024-07-03] MEDS: SODIUM CHLORIDE 0.9% 1,000 ML IV SCH (10:22)
[2024-07-03] MEDS: SODIUM CHLORIDE 0.9% 1,000 ML IV ONE ×2 (10:22→12:36)
[2024-07-03 10:39] LABS: Chloride 111 mmol/L (98-107); Potassium 4.4 mmol/L (3.5-5.1); Sodium 143 mmol/L (136-145)
[2024-07-03 10:40] LABS: Anion Gap 10 (5-15); Calcium 9.2 mg/dL (8.7-10.4); Carbon Dioxide 22 mmol/L (20-31)
[2024-07-03] MEDS: FAMOTIDINE (10MG/ML) 2ML VL IV SCH (10:41)
[2024-07-03 10:45] LABS: BUN/Creatinine Ratio 34.5 (10.0-20.0); Blood Urea Nitrogen 57 mg/dL (9-23)
[2024-07-03 10:47] LABS: Glucose 164 mg/dL (74-106)
[2024-07-03] MEDS: VASOPRESSIN 20 UNITS in SODIUM CHL 0.9% 99 ML IV SCH (12:36)
[2024-07-03] MEDS: ACETAMINOPHEN 650 mg PER 20.3 mL UD GT PRN (13:18)
[2024-07-03 13:39] LABS: Chloride 112 mmol/L (98-107); Potassium 4.5 mmol/L (3.5-5.1); Sodium 144 mmol/L (136-145)
[2024-07-03 13:41] LABS: Calcium 9.3 mg/dL (8.7-10.4)
[2024-07-03 13:45] LABS: BUN/Creatinine Ratio 34.5 (10.0-20.0); Blood Urea Nitrogen 51 mg/dL (9-23); Glucose 208 mg/dL (74-106)
[2024-07-03 13:52] LABS: Anion Gap 11 (5-15); Carbon Dioxide 21 mmol/L (20-31)
[2024-07-03] MEDS: ENOXAPARIN SOD 40 MG/0.4 ML SYRINGE SC ONE (15:22)
[2024-07-03] MEDS: NOREPINEPHRINE BITARTRATE 32 MG in SODIUM CHL 0.9% 218 ML IV SCH (16:00)
[2024-07-03] MEDS: PHENYLEPHRINE INJ 80 MG in SODIUM CHL 0.9% 242 ML IV SCH (16:00)
[2024-07-03] MEDS: InsuLIN REG 1unit/0.01ml Soln (100units/ml) SC SCH (16:53)
--- NOTE | 2024-07-03 17:15 | DVH ---
EXAM: CT HEAD WITHOUT CONTRAST INDICATION: ALOC TECHNIQUE: CT of the head without intravenous contrast. Radiation Dose Information: CT Dose: CTDI volume is 62.3 mGy. Dose-length product is 1123.06 mGy*cm The dose indicators for CT are the volume Computed Tomography (CT) Dose Index (CTDIvol) and the Dose Length Product (DLP), and are measured in units of mGy and mGy-cm, respectively. These indicators are not patient dose, but values generated from the CT scanner acquisition factors. The report includes radiation exposure data for exposures received during this examination. COMPARISON: None FINDINGS: There is no evidence of acute intracranial hemorrhage, extra-axial collection, mass effect, midline s hift, herniation or hydrocephalus. The ventricles, sulci and cisterns are age appropriate. The morales-white differentiation is intact. Patchy periventricular and subcortical white matter hypoattenuation is nonspecific but may be related to small vessel ischemic disease. Partial opacification right maxillary sinus. The mastoid air cells are clear. The surrounding soft tissues and osseous structures are unremarkable. IMPRESSION: 1. Partial opacification of the right maxillary sinus. 2. No acute intracranial hemorrhage. 3. No CT findings of territorial ischemia.
[2024-07-03 17:17] LABS: Amphetamine Screen, Urine Neg (NEGATIVE); Barbiturate Scree,Urine Neg (NEGATIVE); Benzodiazephine Screen, Urine Pos (NEGATIVE); Cannabinoid Screen, Urine Neg (NEGATIVE); Cocaine Screen, Urine Neg (NEGATIVE); Opiate Scree,Urine Neg (NEGATIVE); Phencyclidine Screen, Urine Neg (NEGATIVE)
--- NOTE | 2024-07-03 19:58 | DVHINCON2 ---
Date of service: Jul 03, 2024 Referring Physician IZAIAH Sorenson Reason for Consultation Ventilator management History of Present Illness [age]-year-old man history of diabetes mellitus who presented [facility] with altered mental status. He was emergently intubated and placed on mechanical ventilator. Pulmonary consultation is called due to acute respiratory failure on mechanical ventilator management. Review of systems: Unable to obtain due to patient's critical condition. Past medical history: Diabetes mellitus type 2, cachexia Past surgical history: None mentioned in prior surgeries. Medications: Reviewed Allergies: No known drug allergies. Family history: No family history of premature CAD. No family history of lung disease. Social history: Nonsmoker. No alcohol or illicit drug use. Allergies: Coded Allergies: NO KNOWN ALLERGIES (Unverified , 07/02/24) Current Medications Current Medications Medications (Trade) Dose Ordered Sig/Sandra Route PRN Reason Start Time Stop Time Status Last Admin Sodium Chloride 1,000 ml @ 500 mls/hr Q2H IV 07/02/24 22:45 07/03/24 01:16 DC Sodium Chloride 1,000 ml @ 250 mls/hr Q4H IV 07/03/24 02:45 07/03/24 01:16 DC Sodium Chloride 1,000 ml @ 150 mls/hr Q6H40M IV 07/03/24 04:45 07/03/24 01:16 DC Insulin Human (Reg)/Sodium Chloride 100 ml @ 0.5 mls/hr Q24H IV 07/02/24 22:45 07/03/24 01:16 DC 07/02/24 23:00 Dextrose 50 ml UD PRN IV SEE CURRENT ALGORITHM or SCALE 07/02/24 22:45 07/03/24 01:16 DC Diagnostic Test (Pha) (Accu-Chek Comfort Curve T) 1 strip Q90MIN 07/03/24 00:00 07/03/24 01:16 DC Insulin Glargine (Lantus) 15 units DAILY SC 07/03/24 10:00 07/03/24 01:16 DC Propofol 100 ml @ 2.181 mls/ hr Q24H IV 07/02/24 22:45 07/02/24 23:03 Norepinephrine Bitartrate 250 ml @ 3.75 mls/hr Q24H IV 07/02/24 23:00 07/03/24 14:59 DC 07/03/24 05:40 Famotidine (Pepcid Injection) 20 mg Q12HR IV 07/03/24 10:00 07/03/24 10:41 Ondansetron HCl (Zofran) 4 mg Q4HP PRN IV NAUSEA / VOMITING 07/02/24 23:15 Nitroglycerin (Ntrostat Sublingual) 0.4 mg Q5MINP PRN SL FOR CHEST PAIN 07/02/24 23:15 Morphine Sulfate 2 mg Q30M PRN IV FOR CHEST PAIN 07/02/24 23:15 Dextrose 50 ml UD PRN IV SEE CURRENT ALGORITHM or SCALE 07/03/24 01:15 07/03/24 12:36 DC Diagnostic Test (Pha) (Accu-Chek Comfort Curve T) 1 strip Q90MIN 07/03/24 01:30 07/03/24 12:36 DC 07/03/24 12:16 Insulin Human (Reg)/Sodium Chloride 100 ml @ 0.5 mls/hr Q24H IV 07/03/24 01:15 07/03/24 12:36 DC 07/03/24 07:30 Insulin Glargine (Lantus) 15 units DAILY SC 07/04/24 10:00 Midazolam HCl 50 ml @ 1 mls/hr Q24H IV 07/03/24 01:15 07/03/24 11:45 Phenylephrine HCl 250 ml @ 30 mls/hr Q8H20M IV 07/03/24 04:34 07/03/24 14:59 DC 07/03/24 12:04 Acetaminophen (Tylenol Tablet) 650 mg Q6HP PRN PO PAIN SCALE 1-3 OR TEMP>100.4 07/03/24 05:27 07/03/24 12:30 DC 07/03/24 05:37 Ibuprofen (MOTRIN 100MG/5 mL ORAL SUSP) 600 mg Q6HP PRN GT TEMP GREATER THAN 100.4 07/03/24 06:45 07/03/24 17:34 Sodium Chloride 1,000 ml @ 100 mls/hr Q10H IV 07/03/24 10:00 07/03/24 10:22 Vasopressin 20 units/Sodium Chloride 100 ml @ 9 mls/hr Q11H7M IV 07/03/24 10:00 07/03/24 14:17 Acetaminophen (Tylenol Solution Oral) 650 mg Q6HP PRN GT PAIN SCALE 1-3 OR TEMP>100.4 07/03/24 12:30 07/03/24 13:18 Diagnostic Test (Pha) (Accu-Chek Comfort Curve T) 1 strip IQ4HR 07/03/24 16:00 07/03/24 16:49 Insulin Human Regular (InsuLIN R) IQ4HR SC 07/03/24 16:00 07/03/24 16:53 Dextrose 50 ml UD PRN IV Blood Sugar LESS THAN 60 07/03/24 12:30 Enoxaparin Sodium (Lovenox) 40 mg DAILY SC 07/04/24 10:00 Atorvastatin Calcium (Lipitor) 40 mg HS GT 07/03/24 22:00 Phenylephrine HCl 80 mg/Sodium Chloride 250 ml @ 7.5 mls/hr Q24H IV 07/03/24 15:00 07/03/24 16:00 Norepinephrine Bitartrate 32 mg/ Sodium Chloride 250 ml @ 0.938 mls/ hr Q24H IV 07/03/24 15:00 07/03/24 16:00 Piperacillin Sod/ Tazobactam Sod 100 ml @ 25 mls/hr Q8HR IV 07/03/24 22:00 Acetaminophen (Ofirmev) 1,000 mg Q8H PRN IV Fever 07/03/24 19:45 UNV Vital Signs Vital Signs Date Time Temp Pulse Resp B/P (MAP) Pulse Ox O2 Delivery O2 Flow Rate FiO2 07/03/24 18:52 101.1 07/03/24 18:05 79 32 114/54 (74) 100 30 07/03/24 07:30 Mechanical Ventilator+ 0 Physical Exam Gen.: Patient lying in bed in medical ICU. Sedated, intubated on mechanical ve ntilator. Head: Normocephalic, atraumatic. Eyes: PERRLA. Ears: Normal external anatomy. Throat: Endotracheal tube and orogastric tube in place. Neck: Supple, trachea midline. Chest: Transmitted breath sounds bilaterally. Decreased air entry bilaterally. No wheezing. Bibasilar crackles. Cardio vascular: Positive S1, positive S2. Regular rate and rhythm. Abdomen: Positive bowel sounds in all 4 quadrants. Soft, nontender, nondistended. : Torres in place. Normal external genitalia. Rectal: Deferred Skin: Warm, dry. Intact. Extremities: 2+ radial pulses bilaterally. No lower extremity edema. Neuro: Sedated. Labs/Diagnostic Data Labs Test 07/03/24 19:35 07/03/24 16:51 07/03/24 16:48 07/03/24 10:06 Range/Units Urine Opiates Screen Neg NEGATIVE Urine Fentanyl Screen Neg NEGATIVE Urine Barbiturates Screen Neg NEGATIVE Urine Phencyclidine Screen Neg NEGATIVE Urine Amphetamines Screen Neg NEGATIVE Urine Benzodiazepines Screen Pos NEGATIVE Urine Cocaine Screen Neg NEGATIVE Urine Cannabinoids Screen Neg NEGATIVE POC Glucose 240 H 70-106 mg/dl Hemoglobin A1c > 14.0 H <5.7 % A1C Test 07/03/24 07:15 07/03/24 05:29 07/03/24 02:03 07/02/24 23:08 Range/Units Blood Gas Specimen Type Arterial Blood Gas Sample Site Right radial Blood Gas Patient Temperature 37.0 Arterial Blood Date Drawn [id number] Arterial Blood pH 7.364 7.350-7.450 Arterial Blood Partial Pressure CO2 31.8 L 35.0-48.0 mmHg Arterial Blood Partial Pressure O2 121.9 H 83.0-108.0 mmHg Arterial Blood HCO3 17.7 L 21.0-28.0 mmol/L Arterial Blood Oxygen Saturation 98.4 H 94.0-98.0 % Arterial Blood Base Excess -6.3 L -2.0-3.0 mmol/L Arterial Blood Oxyhemoglobin 96.8 94.0-98.0 % Arterial Blood Carboxyhemoglobin 1.1 0.5-1.5 % Arterial Blood Methemoglobin 0.5 0.0-1.5 % Serge Test Modified Blood Gas Total Hemoglobin 16.30 13.5-17.5 g/dL Blood Gas Set Respiration Rate 20.0 Blood Gas Modality Vent - ac Blood Gas Spontaneous Rate 20 FiO2 % 30.0 Blood Gas Tidal Volume 500.0 Blood Gas PEEP or CPAP 5.0 White Blood Count 4.1 #L 4.4-10.8 10^3/uL Red Blood Count 5.68 4.5-5.90 10^6/uL Hemoglobin 16.7 13.5-17.5 g/dL Hematocrit 50.6 41.0-53.0 % Mean Corpuscular Volume 89.0 # 80.0-100.0 fL Mean Corpuscular Hemoglobin 29.3 28.0-32.0 pg Mean Corpuscular Hemoglobin Concent 33.0 32.0-36.0 g/dL Red Cell Distribution Width 14.6 H 11.8-14.3 % Platelet Count 180 140-450 10^3/uL Mean Platelet Volume 9.0 6.9-10.8 fL Neutrophils (%) (Auto) 78.8 37.0-80.0 % Lymphocytes (%) (Auto) 13.2 10.0-50.0 % Monocytes (%) (Auto) 7.3 0.0-12.0 % Eosinophils (%) (Auto) 0.3 0.0-7.0 % Basophils (%) (Auto) 0.4 0.0-2.0 % Neutrophils # (Auto) 3.3 1.6-8.6 10 ^3/uL Lymphocytes # (Auto) 0.5 0.4-5.4 10 ^3/uL Monocytes # (Auto) 0.3 0-1.3 10 ^3/uL Eosinophils # (Auto) 0 0-0.8 10 ^3/uL Basophils # (Auto) 0 0-0.2 10 ^3/uL Nucleated Red Blood Cells 0.3 % Total Bilirubin 0.2 0.2-1.0 mg/dL Aspartate Amino Transferase (AST) 15 13-40 U/L Alanine Aminotransferase (ALT) 14 7-40 U/L Alkaline Phosphatase 97 46-116 U/L Total Protein 6.1 5.7-8.2 g/dL Albumin 3.5 3.2-4.8 g/dL Triglycerides Level 344 H < 150 mg/dL Cholesterol Level 144 < 200 mg/dL LDL Cholesterol 50 < 100 mg/dL HDL Cholesterol 53 40-59 mg/dL Thyroid Stimulating Hormone (TSH) 0.42 L 0.55-4.78 uIU/mL Blood Gas Critical Value Read Back Yes Blood Gas Notified Whom Dr. willis Blood Gas Notified Time [id number] Blood Gas Notified By Commodity Management Specialist corrine patton Urine Color Light-yellow Yellow Urine Clarity Clear Clear Urine pH 5.0 5.0-9.0 Urine Specific [place] 1.025 1.001-1.035 Urine Protein Negative Negative Urine Ketones 4+ H Negative Urine Blood Negative Negative /uL Urine Nitrite Negative Negative Urine Bilirubin Negative Negative Urine Urobilinogen Normal Negative mg/dL Urine Leukocyte Esterase Negative Negative /uL Urine RBC <1 0 - 3 /hpf Urine WBC 1 0 - 3 /hpf Urine Squamous Epithelial Cells None seen <5 /hpf Urine Bacteria None seen None Seen /hpf Urine Glucose 4+ H Normal mg/dL Test 07/02/24 21:50 07/02/24 21:15 07/02/24 20:57 Range/Units Phosphorus Level 4.4 2.4-5.1 mg/dL Magnesium Level 3.0 H 1.6-2.6 mg/dL Venous Blood pH 7.179 *L 7.320-7.430 Venous Blood pCO2 at Patient Temp 17.8 L 38.0-54.0 mmHg Venous Blood pO2 at Patient Temp 70.7 H 23.0-48.0 mmHg Venous Blood HCO3 6.5 L 22.0-29.0 mmol/L Venous Blood Base Excess -19.6 L -2.0-3.0 mmol/L Blood Gas Liter Flow 2.00 Serum Osmolality 354 H 278-298 mOsm/kg Lactic Acid Level 1.0 0.4-2.0 mmol/L Beta-Hydroxybutyric Acid > 4.500 H < 0.4 mmol/L Assessment Impression: Acute hypoxic respiratory failure On mechanical ventilator Diabetic ketoacidosis Acute kidney injury Cachexia with a BMI of 1816.8 Plan: s/p intubation on mechanical ventilator CT head demonstrates no acute intracranial hemorrhage. Partial CXR image and report reviewed. No acute opacities. Devices in place. ABG reviewed. Compensated. Metabolic Acidosis with respiratory compensation. On assist-control mode with a respiratory rate of 20, tidal volume 500, peep of Titrate FIO2 to keep O2 saturation above 92%. VAP bundle Daily ABG and CXR while intubated. Sedate for ventilatory synchrony, on Versed On pressors for hemodynamic support. On vasopressin Titrate to keep MAP above 65 mmHg/SBP above 90 mmHg. Continue antibiotics. F/u cultures. Monitor renal function due to Acute kidney injury. Monitor electrolytes. Supplement as necessary. IVF NS at 100mL/hour Insulin drip Accucheks, ISS. GI/DVT prophylaxis. Condition: Critical Prognosis: Poor given multiple comorbidities. Rest of plan per hospitalist and other consultants. A total of 36 minutes of critical care time was spent reviewing the patient record, examining the patient, making a diagnostic and therapeutic plan, discussing this plan with the medical personnel, following up on diagnostic studies and following the patient for clinical stability excluding any and all procedures. At least 50% of this time was spent in direct, [id number] contact. Thank you IZAIAH Sorenson for allowing me to participate in this patient's care. Further recommendations will depend on patient's clinical course. Please do not hesitate to contact me if you have any questions or concerns. This medical document was created using an electronic medical record system with Mithridion dictation system. Although this document has been carefully reviewed, there may still be some phonetic and typographical errors. These areas are purely typographical due to imperfections of the software programs, and do not reflect any compromise in the patient's medical care. Plan discussed with: Other (LUKE Hodge, RT, PROPULSION MACHINERY SERVICE ENGINEER) NADER ALLEN MD Jul 03, 2024 19:58
[2024-07-03 20:14] LABS: Chloride 116 mmol/L (98-107); Potassium 4.8 mmol/L (3.5-5.1)
[2024-07-03 20:15] LABS: Anion Gap 14 (5-15); Calcium 8.6 mg/dL (8.7-10.4); Carbon Dioxide 19 mmol/L (20-31)
[2024-07-03 20:19] LABS: Sodium 149 mmol/L (136-145)
[2024-07-03 20:20] LABS: BUN/Creatinine Ratio 35.1 (10.0-20.0); Blood Urea Nitrogen 53 mg/dL (9-23); Glucose 278 mg/dL (74-106)
--- NOTE | 2024-07-03 20:33 | DVHPN2 ---
Subjective 49 year old male diabetic, came with DKA, intubated, ZOYA According to family, he takes Metformin, Glipizide, gabapentin and Farxiga HbA1C is >14 Changes from previous H/P or p: Changes Eyes: No Pain, No Vision change, No Conjunctivae inflammation, No Eyelid inflammation, No Other, No Redness ENT: No Ear pain, No Ear discharge, No Nose pain, No Nose discharge, No Nose congestion, No Mouth pain, No Mouth swelling, No Throat pain, No Throat swelling, No Other Cardiovascular: No Chest Pain, No Palpitations, No Orthopnea, No Paroxysmal Noc. Dyspnea, No Edema, No Lt Headedness, No Other Respiratory: No Cough, No Dry, No Shortness of breath, No SOB with excertion, No Wheezing, No Hemoptysis, No Pleuritic Pain, No Sputum, No Other Gastrointestinal: No Nausea, No Vomiting, No Abdominal Pain, No Diarrhea, No Constipation, No Melena, No Hematochezia, No Other Genitourinary: No Dysuria, No Frequency, No Incontinence, No Hematuria, No Retention, No Other Musculoskeletal: No other, No neck pain, No shoulder pain, No arm pain, No back pain, No hand pain, No leg pain, No foot pain Skin: No Rash, No Lesions, No Jaundice, No Bruising, No Other Objective Vitals Vital Signs Date Time Temp Pulse Resp B/P (MAP) Pulse Ox O2 Delivery O2 Flow Rate FiO2 07/03/24 20:12 79 33 135/69 (91) 100 30 07/03/24 18:52 101.1 07/03/24 07:30 Mechanical Ventilator+ 0 Intake/Output Intake and Output 07/03/24 07:00 Intake Total 2010.5 ml Balance 2010.5 ml Intake IV Total 2010.5 ml General Appearance: Other (intubated and sedated) Lungs: Clear to auscultation, Normal air movement Cardiovascular: Regular rate, Normal S1 Abdomen: Normal bowel sounds, Soft, No tenderness Extremities: No edema Medications Current Medications Medications Dose Ordered Sig/Sandra Route Start Time Stop Time Status Last Admin Dose Admin Propofol 100 ml @ 2.181 mls/ hr Q24H IV 07/02/24 22:45 07/02/24 23:03 2.181 MLS/HR Famotidine 20 mg Q12HR IV 07/03/24 10:00 07/03/24 10:41 20 MG Ondansetron HCl 4 mg Q4HP PRN IV 07/02/24 23:15 Nitroglycerin 0.4 mg Q5MINP PRN SL 07/02/24 23:15 Morphine Sulfate 2 mg Q30M PRN IV 07/02/24 23:15 Insulin Glargine 15 units DAILY SC 07/04/24 10:00 Midazolam HCl 50 ml @ 1 mls/hr Q24H IV 07/03/24 01:15 07/03/24 11:45 14 MLS/HR Ibuprofen 600 mg Q6HP PRN GT 07/03/24 06:45 07/03/24 17:34 600 MG Sodium Chloride 1,000 ml @ 100 mls/hr Q10H IV 07/03/24 10:00 07/03/24 10:22 100 MLS/HR Vasopressin 20 units/Sodium Chloride 100 ml @ 9 mls/hr Q11H7M IV 07/03/24 10:00 07/03/24 14:17 9 MLS/HR Acetaminophen 650 mg Q6HP PRN GT 07/03/24 12:30 07/03/24 13:18 650 MG Diagnostic Test (Pha) 1 strip IQ4HR 07/03/24 16:00 07/03/24 16:49 1 STRIP Insulin Human Regular IQ4HR SC 07/03/24 16:00 07/03/24 16:53 6 UNITS Dextrose 50 ml UD PRN IV 07/03/24 12:30 Enoxaparin Sodium 40 mg DAILY SC 07/04/24 10:00 Atorvastatin Calcium 40 mg HS GT 07/03/24 22:00 Phenylephrine HCl 80 mg/Sodium Chloride 250 ml @ 7.5 mls/hr Q24H IV 07/03/24 15:00 07/03/24 16:00 24.375 MLS/HR Norepinephrine Bitartrate 32 mg/ Sodium Chloride 250 ml @ 0.938 mls/ hr Q24H IV 07/03/24 15:00 07/03/24 16:00 11.25 MLS/HR Piperacillin Sod/ Tazobactam Sod 100 ml @ 25 mls/hr Q8HR IV 07/03/24 22:00 Acetaminophen 1,000 mg Q8H PRN IV 07/03/24 19:45 UNV Laboratory Results Laboratory Tests 07/03/24 05:29 07/03/24 19:35 Chemistry Test 07/02/24 21:50 07/03/24 00:17 07/03/24 03:40 07/03/24 05:29 Albumin 3.3 g/dL (3.2-4.8) 3.5 g/dL (3.2-4.8) Calcium Level 8.9 mg/dL (8.7-10.4) 9.0 mg/dL (8.7-10.4) 9.2 mg/dL (8.7-10.4) 9.3 mg/dL (8.7-10.4) Magnesium Level 3.0 mg/dL (1.6-2.6) H Phosphorus Level 4.4 mg/dL (2.4-5.1) Total Protein 5.8 g/dL (5.7-8.2) 6.1 g/dL (5.7-8.2) Test 07/03/24 10:06 07/03/24 13:06 07/03/24 19:35 Calcium Level 9.2 mg/dL (8.7-10.4) 9.3 mg/dL (8.7-10.4) 8.6 mg/dL (8.7-10.4) L Lipid panel Test 07/03/24 05:29 Cholesterol Level 144 mg/dL (< 200) HDL Cholesterol 53 mg/dL (40-59) Triglycerides Level 344 mg/dL (< 150) H LFT Test 07/02/24 21:50 07/03/24 05:29 Alanine Aminotransferase (ALT) 12 U/L (7-40) 14 U/L (7-40) Alkaline Phosphatase 101 U/L (46-116) 97 U/L (46-116) Aspartate Amino Transferase (AST) 13 U/L (13-40) 15 U/L (13-40) Total Bilirubin 0.2 mg/dL (0.2-1.0) 0.2 mg/dL (0.2-1.0) HgA1c, TSH Test 07/03/24 05:29 07/03/24 10:06 Thyroid Stimulating Hormone (TSH) 0.42 uIU/mL (0.55-4.78) L Hemoglobin A1c > 14.0 % A1C (<5.7) H Urinalysis Test 07/02/24 23:08 Urine Color Light-yellow (Yellow) Urine Clarity Clear (Clear) Urine pH 5.0 (5.0-9.0) Urine Specific [place] 1.025 (1.001-1.035) Urine Protein Negative (Negative) Urine Ketones 4+ (Negative) H Urine Blood Negative /uL (Negative) Urine Nitrite Negative (Negative) Urine Bilirubin Negative (Negative) Urine Urobilinogen Normal mg/dL (Negative) Urine Leukocyte Esterase Negative /uL (Negative) Urine RBC <1 /hpf (0 - 3) Urine WBC 1 /hpf (0 - 3) Urine Squamous Epithelial Cells None seen /hpf (<5) Urine Bacteria None seen /hpf (None Seen) Urine Glucose 4+ mg/dL (Normal) H Blood Gas Results Test 07/02/24 21:15 07/03/24 00:14 07/03/24 02:03 07/03/24 07:15 FiO2 % 28.0 100.0 50.0 30.0 Arterial Blood pH 6.979 (7.350-7.450) 7.192 (7.350-7.450) 7.364 (7.350-7.450) Assessment/Plan Assessment/Plan DKA, resolved DM, uncontrolled Acute hypoxic respiratory failure s/p intubation on mechanical ventilator ZOYA Sepsis w septic shock Hypernatremia Fever PLAN: IV fluids, change to 1/2 NS Nephrology consult Vasopressors as needed Blood, urine and sputum cultures IV antibiotics: Empiric, change to Cefepime and Vanco Sedation as needed Start Lantus Full code Discussed with family at the bedside Advance directives discussed with family x 20 minutes Plan discussed with: Spouse, Other My Orders Orders - MEHRAN GUERRERO MD Procedure Category Date Status Time Acetaminophen PHA 07/03/24 In Process Solution Oral 12:30 Glucose Blood PHA 07/03/24 In Process (Accu-Chek Comfort 16:00 Insulin R (Human) PHA 07/03/24 In Process (Insulin R) 16:00 Dextrose 50% Syringe PHA 07/03/24 In Process 12:30 Communication Order ORDERS 07/03/24 Transmitted 12:50 Urine Bacterial CHARLIE 07/03/24 In Process Culture 13:53 Date of Service: Jul 03, 2024 Billing Provider: MEHRAN GUERRERO MD Common Visit Codes: [id number] CARE 30-74 MIN Secondary Visit Codes: [id number] CARE PLAN 30 MINUTES MEHRAN GUERRERO MD Jul 03, 2024 20:33
[2024-07-03] MEDS: SOD CHL 0.45% 1,000 ML IV SCH (20:45)
[2024-07-03] MEDS ORDERED: VANCOMYCIN PER PHARMACY 0 MG IV SCH (20:45)
[2024-07-03] MEDS: VANCOMYCIN 1GM/250ML KIT 200 ML IV ONE (21:47)
[2024-07-03] MEDS: ATORVASTATIN 20 MG TAB GT SCH (21:54)
[2024-07-03] MEDS: CEFEPIME 1GM/ 50ML 50 ML IV SCH (21:54)
[2024-07-03] MEDS ORDERED: PIPERACILLIN-TAZOB 3.375GM 100 ML IV SCH (22:00)
[2024-07-03] MEDS: INSULIN LANTUS (GLARGINE) 1 /0.01ml (100units/ml) SC SCH (22:20)
[2024-07-04] VITALS (105 sets, daily range): BP systolic 103–150; BP diastolic 43–79; PULSE 65–96; RESP 20–35; TEMP 98.1–100.8; O2SAT 99–100
[2024-07-04 04:13] LABS: Basophils # (auto) 0 10 ^3/uL (0-0.2); Basophils % (auto) 0.2 % (0.0-2.0); Eosinophils # (auto) 0.1 10 ^3/uL (0-0.8); Eosinophils % (auto) 2.5 % (0.0-7.0); Hematocrit 40.9 % (41.0-53.0); Hemoglobin 13.9 g/dL (13.5-17.5); Lymphocytes # (auto) 0.2 10 ^3/uL (0.4-5.4); Lymphocytes % (auto) 5.5 % (10.0-50.0); Mean Corpuscular Hemoglobin 29.7 pg (28.0-32.0); Mean Corpuscular Volume 87.2 fL (80.0-100.0); Monocytes # (auto) 0.3 10 ^3/uL (0-1.3); Monocytes % (auto) 6.6 % (0.0-12.0); Neutrophils # (auto) 3.7 10 ^3/uL (1.6-8.6); Neutrophils % (auto) 85.2 % (37.0-80.0); Platelet Count (auto) 131 10^3/uL (140-450); Red Blood Cells 4.69 10^6/uL (4.5-5.90); White Blood Cell 4.4 10^3/uL (4.4-10.8)
[2024-07-04 04:32] LABS: Alanine Aminotransferase 20 U/L (7-40); Alkaline Phosphatase 70 U/L (46-116); Anion Gap 5 (5-15); Aspartate Aminotransferase 96 U/L (13-40); BUN/Creatinine Ratio 29.5 (10.0-20.0); Calcium 8.4 mg/dL (8.7-10.4); Carbon Dioxide 24 mmol/L (20-31); Chloride 120 mmol/L (98-107); Cholesterol 117 mg/dL (< 200); Glucose 232 mg/dL (74-106); HDL Cholesterol 42 mg/dL (40-59); LDL Cholesterol 38 mg/dL (< 100); Magnesium 2.4 mg/dL (1.6-2.6); Potassium 4.1 mmol/L (3.5-5.1); Sodium 149 mmol/L (136-145); Triglycerides 253 mg/dL (< 150)
[2024-07-04 04:33] LABS: Bilirubin, Total 0.2 mg/dL (0.2-1.0); Total Protein 5.4 g/dL (5.7-8.2)
[2024-07-04 04:43] LABS: Blood Urea Nitrogen 39 mg/dL (9-23)
[2024-07-04 04:54] LABS: Lipase 56 U/L (12-53)
[2024-07-04] MEDS ORDERED: METF-370 PO (05:14)
[2024-07-04] MEDS ORDERED: GABA-339 PO (05:14)
[2024-07-04] MEDS ORDERED: GLIP5TAB21 PO (05:14)
[2024-07-04] MEDS ORDERED: DAPA1TAB4 PO (05:14)
--- NOTE | 2024-07-04 05:36 | DVH ---
EXAM: XY CHEST XRAY 1 VIEW Indication:suspect PNA Technique: Single frontal view of the chest was obtained Comparison: XY CHEST PORTABLE on DOS: 07/02/24, XY CHEST PORTABLE on DOS: 07/02/24, XY CHEST PORTABLE on DOS: 07/02/24 FINDINGS: Lines and Tubes: Endotracheal tube terminates 3.3 cm above the nat. Enteric tube tip in the gastr oesophageal junction. Recommend advancement. Lungs: Clear Pleura: No effusion. No pneumothorax. Cardiomediastinal contours: Unremarkable Bones: Unremarkable IMPRESSION: Endotracheal tube terminates 3.3 cm above the nat. Enteric tube tip in the gastroesophageal junct ion. Recommend advancement.
[2024-07-04 07:08] LABS: Base Excess -2.8 mmol/L (-2.0-3.0)
--- NOTE | 2024-07-04 08:16 | DVHSR ---
APPROVED REPORT EXAM: Two-dimensional and M-mode echocardiogram with Doppler and color Doppler. Blood Pressure: 89/53 mmHg RISK FACTORS Height: 6' 10", Weight: 160 DIMENSIONS LVDd3.9 (3.8-5.7cm)LA (2D)3.7 (1.9-4.0cm)Aortic Root3.5 (2.0-3.7cm) LVDs2.7 (2.5-4.0cm)LA (MM) (1.9-4.0cm)Aortic Cusp Exc2.0 (1.5-2.0cm) EF (%) 58.0 (55-70%)Rt. Atrium4.0 (1.9-4.0cm)Asc. Aorta cm IVSd1.2 (0.7-1.1cm)RV (D) (1.8-2.4cm) PWd1.2 (0.7-1.1cm) Mitral Valve MitralMitral Stenosis E wave1.30m/sMV Mean GR.mmHg E/A ratio0.02D MVAcm2 Aortic Valve Aortic ValveAortic Stenosis V11.60m/[place] Mean GR.6mmHg V21.80m/[place] Peak GR.13mmHg LVOT Diameter2.1 (1.8-2.4cm)Doppler AVA3.08cm2 Other Information Quality : Technically LimitedRhythm : Technically limited study due to on vent. Conclusion lvef 6o% by visual estimate normal rv function moderate LVH small LV cavity no severe valve abnormalities noted
--- NOTE | 2024-07-04 08:26 | DVH ---
EXAM: XR Chest, 1 View CLINICAL INDICATION: vent TECHNIQUE: Frontal view of the chest. COMPARISON: XY CHEST XRAY 1 VIEW on DOS: 07/04/24, XY CHEST PORTABLE on DOS: 07/02/24, XY CHEST POR TABLE on DOS: 07/02/24 FINDINGS: LUNGS AND PLEURAL SPACES: Congestion. No consolidation. No pneumothorax. HEART: Unremarkable. No cardiomegaly. MEDIASTINUM: Unremarkable. Normal mediastinal contour. BONES/JOINTS: Unremarkable. No acute fracture. TUBES, LINES AND DEVICES: The endotracheal tube (ETT) is in satisfactory position. UPPER ABDOMEN: Intact stomach. OTHER FINDINGS: . . IMPRESSION: No acute cardiopulmonary process. HS:Y
--- NOTE | 2024-07-04 08:49 | DVHPN2 ---
Progress Note Date Seen: Jul 04, 2024 Medical Necessity Reason Pt with a Central, PICC or Fol: No Subjective Other Systems: intubated on 2 pressors large BM today per RN Objective vital signs Vital Sign Date Time Temp Pulse Resp B/P (MAP) Pulse Ox O2 Delivery O2 Flow Rate FiO2 07/04/24 07:56 96 20 130/43 (72) 100 30 07/04/24 06:45 98.6 209.5 07/03/24 22:08 Mechanical Ventilator+ 07/03/24 07:30 0 Total Intake and Output 07/03/24 07/03/24 07/04/24 15:00 23:00 07:00 Intake Total 2474 ml 1004.018 ml 1172.61 ml Output Total 2200 ml Balance 2474 ml 1004.018 ml -1027.39 ml medications Current Medications Medications Dose Ordered Sig/Sandra Route Start Time Stop Time Status Last Admin Dose Admin Propofol 100 ml @ 2.181 mls/ hr Q24H IV 07/02/24 22:45 07/04/24 07:24 19.629 MLS/HR Famotidine 20 mg Q12HR IV 07/03/24 10:00 07/03/24 21:54 20 MG Ondansetron HCl 4 mg Q4HP PRN IV 07/02/24 23:15 Nitroglycerin 0.4 mg Q5MINP PRN SL 07/02/24 23:15 Morphine Sulfate 2 mg Q30M PRN IV 07/02/24 23:15 Midazolam HCl 50 ml @ 1 mls/hr Q24H IV 07/03/24 01:15 07/04/24 07:24 15 MLS/HR Vasopressin 20 units/Sodium Chloride 100 ml @ 9 mls/hr Q11H7M IV 07/03/24 10:00 07/03/24 22:21 9 MLS/HR Acetaminophen 650 mg Q6HP PRN GT 07/03/24 12:30 Hold 07/04/24 03:53 650 MG Diagnostic Test (Pha) 1 strip IQ4HR 07/03/24 16:00 07/04/24 08:27 1 STRIP Insulin Human Regular IQ4HR SC 07/03/24 16:00 07/04/24 08:16 2 UNITS Dextrose 50 ml UD PRN IV 07/03/24 12:30 Enoxaparin Sodium 40 mg DAILY SC 07/04/24 10:00 Atorvastatin Calcium 40 mg HS GT 07/03/24 22:00 07/03/24 21:54 40 MG Phenylephrine HCl 80 mg/Sodium Chloride 250 ml @ 7.5 mls/hr Q24H IV 07/03/24 15:00 07/03/24 16:00 24.375 MLS/HR Norepinephrine Bitartrate 32 mg/ Sodium Chloride 250 ml @ 0.938 mls/ hr Q24H IV 07/03/24 15:00 07/03/24 16:00 11.25 MLS/HR Acetaminophen 1,000 mg Q8H PRN IV 07/03/24 19:45 Insulin Glargine 10 units BID@0700,2200 SC 07/03/24 22:00 07/04/24 06:22 10 UNITS Sodium Chloride 1,000 ml @ 125 mls/hr Q8H IV 07/03/24 20:45 07/04/24 04:09 125 MLS/HR Cefepime HCl 50 ml @ 12.5 mls/hr Q12HR IV 07/03/24 22:00 07/03/24 21:54 12.5 MLS/HR Vancomycin HCl 0 ml @ 0 mls/hr UD IV 07/03/24 20:45 UNV Examination: GENERAL:Abnormal, HEENT:Abnormal, LUNGS:Abnormal, CVS:Abnormal, ABDOMEN:Abnormal laboratory and microbiology Laboratory Tests 07/04/24 03:42 Test 07/04/24 03:42 Range/Units Serum Glucose 232 H 74-106 mg/dL Problem List/Assessment/Plan Problem List/Assessment/Plan DKA hypotension shock obesity HL acidemia IVF continued normal lvef on echo troponin likely 2/2 to severe acidemia and metabolic derangements wean off pressors bp 110s now please call for ?s 36 mins critical care time spent Plan discussed with: Other (rn) Date of Service: Jul 04, 2024 Billing Provider: INGRID JUAN MD Common Visit Codes: NOT BILLABLE INGRID JUAN MD Jul 04, 2024 08:49
[2024-07-04] MEDS: FREE WATER GT SCH (09:51)
[2024-07-04] MEDS: ENOXAPARIN SOD 40 MG/0.4 ML SYRINGE SC SCH (09:52)
[2024-07-04] MEDS ORDERED: INSULIN LANTUS (GLARGINE) 1 /0.01ml (100units/ml) SC SCH (10:00)
[2024-07-04] MEDS: VANCOMYCIN 500 MG in D5W 5% 100 ML IV SCH (12:43)
--- NOTE | 2024-07-04 12:57 | DVHPN2 ---
Subjective He is having frequent stools and diarrhea Creatinine is better Still on vasopressors Sodium 149 Changes from previous H/P or p: Changes Eyes: No Pain, No Vision change, No Conjunctivae inflammation, No Eyelid inflammation, No Other, No Redness ENT: No Ear pain, No Ear discharge, No Nose pain, No Nose discharge, No Nose congestion, No Mouth pain, No Mouth swelling, No Throat pain, No Throat swelling, No Other Cardiovascular: No Chest Pain, No Palpitations, No Orthopnea, No Paroxysmal Noc. Dyspnea, No Edema, No Lt Headedness, No Other Respiratory: No Cough, No Dry, No Shortness of breath, No SOB with excertion, No Wheezing, No Hemoptysis, No Pleuritic Pain, No Sputum, No Other Gastrointestinal: No Nausea, No Vomiting, No Abdominal Pain, No Diarrhea, No Constipation, No Melena, No Hematochezia, No Other Genitourinary: No Dysuria, No Frequency, No Incontinence, No Hematuria, No Retention, No Other Musculoskeletal: No other, No neck pain, No shoulder pain, No arm pain, No back pain, No hand pain, No leg pain, No foot pain Skin: No Rash, No Lesions, No Jaundice, No Bruising, No Other Objective Vitals Vital Signs Date Time Temp Pulse Resp B/P (MAP) Pulse Ox O2 Delivery O2 Flow Rate FiO2 07/04/24 12:00 71 20 112/68 (83) 99 30 07/04/24 11:30 98.6 209.5 07/04/24 08:00 Mechanical Ventilator+ 07/03/24 07:30 0 Intake/Output Intake and Output 07/04/24 07:00 Intake Total 4825.820 ml Output Total 2200 ml Balance 2625.820 ml Intake Oral 50 ml IV Total 4775.820 ml Output Urine Total 2200 ml # Bowel Movements 1 General Appearance: Other (intubated and sedated) Lungs: Clear to auscultation, Normal air movement Cardiovascular: Regular rate, Normal S1 Abdomen: Normal bowel sounds, Soft, No tenderness Extremities: No edema Medications Current Medications Medications Dose Ordered Sig/Sandra Route Start Time Stop Time Status Last Admin Dose Admin Propofol 100 ml @ 2.181 mls/ hr Q24H IV 07/02/24 22:45 07/04/24 10:50 21.81 MLS/HR Famotidine 20 mg Q12HR IV 10/19/24 10:00 07/04/24 09:51 20 MG Ondansetron HCl 4 mg Q4HP PRN IV 07/02/24 23:15 Nitroglycerin 0.4 mg Q5MINP PRN SL 07/02/24 23:15 Morphine Sulfate 2 mg Q30M PRN IV 07/02/24 23:15 Midazolam HCl 50 ml @ 1 mls/hr Q24H IV 07/03/24 01:15 07/04/24 10:48 15 MLS/HR Vasopressin 20 units/Sodium Chloride 100 ml @ 9 mls/hr Q11H7M IV 07/03/24 10:00 07/04/24 10:49 9 MLS/HR Acetaminophen 650 mg Q6HP PRN GT 07/03/24 12:30 Hold 07/04/24 03:53 650 MG Diagnostic Test (Pha) 1 strip IQ4HR 07/03/24 16:00 07/04/24 12:23 1 STRIP Insulin Human Regular IQ4HR SC 07/03/24 16:00 07/04/24 08:16 2 UNITS Dextrose 50 ml UD PRN IV 07/03/24 12:30 Enoxaparin Sodium 40 mg DAILY SC 07/04/24 10:00 07/04/24 09:52 40 MG Atorvastatin Calcium 40 mg HS GT 07/03/24 22:00 07/03/24 21:54 40 MG Phenylephrine HCl 80 mg/Sodium Chloride 250 ml @ 7.5 mls/hr Q24H IV 07/03/24 15:00 07/03/24 16:00 24.375 MLS/HR Norepinephrine Bitartrate 32 mg/ Sodium Chloride 250 ml @ 0.938 mls/ hr Q24H IV 07/03/24 15:00 07/04/24 10:50 7.5 MLS/HR Acetaminophen 1,000 mg Q8H PRN IV 07/03/24 19:45 Insulin Glargine 10 units BID@0700,2200 SC 07/03/24 22:00 07/04/24 06:22 10 UNITS Sodium Chloride 1,000 ml @ 125 mls/hr Q8H IV 07/03/24 20:45 07/04/24 09:51 125 MLS/HR Cefepime HCl 50 ml @ 12.5 mls/hr Q12HR IV 07/03/24 22:00 07/04/24 09:51 12.5 MLS/HR Vancomycin HCl 0 ml @ 0 mls/hr UD IV 07/03/24 20:45 Purified Water 200 ml Q6HR GT 07/04/24 10:00 07/04/24 12:22 200 ML Vancomycin HCl 500 mg/Dextrose 100 ml @ 200 mls/hr Q12H IV 07/04/24 12:00 07/04/24 12:43 200 MLS/HR Laboratory Results Laboratory Tests 07/04/24 03:42 Chemistry Test 07/03/24 13:06 07/03/24 19:35 07/04/24 03:42 Calcium Level 9.3 mg/dL (8.7-10.4) 8.6 mg/dL (8.7-10.4) L 8.4 mg/dL (8.7-10.4) L Albumin 3.0 g/dL (3.2-4.8) L Magnesium Level 2.4 mg/dL (1.6-2.6) Total Protein 5.4 g/dL (5.7-8.2) L Lipid panel Test 07/04/24 03:42 Cholesterol Level 117 mg/dL (< 200) HDL Cholesterol 42 mg/dL (40-59) Lipase 56 U/L (12-53) H Triglycerides Level 253 mg/dL (< 150) H LFT Test 07/04/24 03:42 Alanine Aminotransferase (ALT) 20 U/L (7-40) Alkaline Phosphatase 70 U/L (46-116) Aspartate Amino Transferase (AST) 96 U/L (13-40) H Total Bilirubin 0.2 mg/dL (0.2-1.0) HgA1c, TSH Test 07/04/24 03:42 Thyroid Stimulating Hormone (TSH) 0.38 uIU/mL (0.55-4.78) L Urinalysis Test 07/02/24 23:08 Urine Color Light-yellow (Yellow) Urine Clarity Clear (Clear) Urine pH 5.0 (5.0-9.0) Urine Specific [place] 1.025 (1.001-1.035) Urine Protein Negative (Negative) Urine Ketones 4+ (Negative) H Urine Blood Negative /uL (Negative) Urine Nitrite Negative (Negative) Urine Bilirubin Negative (Negative) Urine Urobilinogen Normal mg/dL (Negative) Urine Leukocyte Esterase Negative /uL (Negative) Urine RBC <1 /hpf (0 - 3) Urine WBC 1 /hpf (0 - 3) Urine Squamous Epithelial Cells None seen /hpf (<5) Urine Bacteria None seen /hpf (None Seen) Urine Glucose 4+ mg/dL (Normal) H Blood Gas Results Test 07/04/24 06:55 Arterial Blood pH 7.411 (7.350-7.450) FiO2 % 30.0 Assessment/Plan Assessment/Plan DKA, resolved DM, uncontrolled Acute hypoxic respiratory failure s/p intubation on mechanical ventilator ZOYA Sepsis w septic shock Hypernatremia Fever PLAN: 07/03/2024: IV fluids, change to 1/2 NS Nephrology consult Vasopressors as needed Blood, urine and sputum cultures IV antibiotics: Empiric, change to Cefepime and Vanco Sedation as needed Start Lantus Full code Discussed with family at the bedside Advance directives discussed with family x 20 minutes 07/04/2024: Diarrhea: Check the stools for C diff ZOYA: Continue IV fluids Hypernatremia: Start free water Sepsis with septic shock: Continue cefepime and vancomycin Hypotension: Vasopressors Uterine cultures and respiratory cultures are Discussed with the family at the bedside Lantus 10 units twice a day Accu-Cheks q.4 hours Plan discussed with: Spouse My Orders Orders - MEHRAN GUERRERO MD Procedure Category Date Status Time Communication Order ORDERS 07/03/24 Transmitted 12:50 Urine Bacterial CHARLIE 07/03/24 In Process Culture 13:53 Insulin Lantus PHA 07/03/24 In Process (Glargine) (Lantus) 22:00 *[facility] CONS 07/03/24 Transmitted -[place] 20:34 Sod Chl 0.45% (Sodium PHA 07/03/24 In Process Chloride 0.45% Via 20:45 Chest Portable XY 07/04/24 Resulted 06:00 Abg W/ Co-Ox RT 07/04/24 Logged 06:00 Cefepime 1gm/ 50ml PHA 07/03/24 In Process (Maxipime 1gm/50ml) 22:00 Vancomycin Per PHA 07/03/24 In Process Pharmacy 20:45 Clostridium Difficile CHARLIE 07/04/24 Logged Toxin 09:53 Free Water PHA 07/04/24 In Process 10:00 Vancomycin PHA 07/04/24 In Process 12:00 Vancomycin,Trough LAB 07/05/24 Verified 11:00 Vancomycin Per ELI 07/05/24 In Process Pharmacy Protoc 11:00 Complete Blood Count LAB 07/05/24 Verified 04:00 Creatinine LAB 07/05/24 Verified 04:00 Date of Service: Jul 04, 2024 Billing Provider: MEHRAN GUERRERO MD Common Visit Codes: [id number] CARE 30-74 MIN MEHRAN GUERRERO MD Jul 04, 2024 12:57
[2024-07-04] MEDS: PANTOPRAZOLE 40 MG/10 ML VIAL INJ IV ONE (16:25)
[2024-07-04] MEDS: CEFEPIME 1GM/ 50ML 50 ML IV SCH (18:14)
--- NOTE | 2024-07-04 18:28 | DVHINCON2 ---
Date of service: Jul 04, 2024 Reason for Consultation ZOYA History of Present Illness 49 years old past medical history diabetes Chronic kidney disease, presented chief complaints of altered status patient being treated for diabetic ketoacidosis patient is with his diet and medical therapy Patient is in ICU and sedated getting IV fluids on Levophed vasopressin drips patient's , sister, [id number] No surgeries Past Medical History As per HPI Past Surgical History As per HPI Allergies: Coded Allergies: NO KNOWN ALLERGIES (Unverified , 07/02/24) Home Meds Reported Medications Glipizide (Glipizide) 5 Mg Tab, 5 MG PO DAILY for 30 Days, MG 07/04/24 Metformin Hydrochloride (Metformin Hcl) 500 Mg Tab, 500 MG PO IBID for 30 Days, MG 07/04/24 Dapagliflozin Propanediol (Farxiga) 10 Mg Tab, 10 MG PO DAILY, TAB 07/04/24 Gabapentin (Gabapentin) 600 Mg Tab, 600 MG PO BID for 30 Days, MG 07/04/24 Current Medications Current Medications Medications (Trade) Dose Ordered Sig/Sandra Route PRN Reason Start Time Stop Time Status Last Admin Insulin Glargine (Lantus) 15 units DAILY SC 07/04/24 10:00 07/03/24 20:30 DC Enoxaparin Sodium (Lovenox) 40 mg DAILY SC 07/04/24 10:00 07/04/24 09:52 Atorvastatin Calcium (Lipitor) 40 mg HS GT 07/03/24 22:00 07/03/24 21:54 Piperacillin Sod/ Tazobactam Sod 100 ml @ 25 mls/hr Q8HR IV 07/03/24 22:00 07/03/24 20:40 DC Acetaminophen (Ofirmev) 1,000 mg Q8H PRN IV Fever 07/03/24 19:45 Insulin Glargine (Lantus) 10 units BID@0700,2200 SC 07/03/24 22:00 07/04/24 06:22 Sodium Chloride 1,000 ml @ 125 mls/hr Q8H IV 07/03/24 20:45 07/04/24 18:15 Cefepime HCl 50 ml @ 12.5 mls/hr Q12HR IV 07/03/24 22:00 07/04/24 17:16 DC 07/04/24 09:51 Vancomycin HCl 0 ml @ 0 mls/hr UD IV 07/03/24 20:45 Purified Water 200 ml Q6HR GT 07/04/24 10:00 07/04/24 16:42 Vancomycin HCl 500 mg/Dextrose 100 ml @ 200 mls/hr Q12H IV 07/04/24 12:00 07/04/24 12:43 Pantoprazole Sodium (Protonix) 40 mg BID IV 07/04/24 22:00 Cefepime HCl 50 ml @ 12.5 mls/hr Q8H IV 07/04/24 18:00 07/04/24 18:14 Social History None reported Review of Systems Unable to obtain review of systems H&P Exam Vital Signs/I&O Vital Sign Date Time Temp Pulse Resp B/P (MAP) Pulse Ox O2 Delivery O2 Flow Rate FiO2 07/04/24 18:15 125/69 07/04/24 16:30 99.0 71 29 100 210.2 07/04/24 16:05 30 07/04/24 08:00 Mechanical Ventilator+ 07/03/24 07:30 0 Intake and Output 07/03/24 07/04/24 19:00 07:00 Intake Total 3071.938 ml 1753.882 ml Output Total 2200 ml Balance 3071.938 ml -446.118 ml Intake Oral 50 ml IV Total 3071.938 ml 1703.882 ml Output Urine Total 2200 ml # Bowel Movements 1 Physical Exam General-intubated and sedated HEENT-normocephalic, no icterus, no pallor, neck supple Respiratory-fair air entry bilateral, no rhonchi, no wheeze [id number] heard, no murmurs appreciated Abdominal-soft, nontender, nondistended Musculoskeletal-no pedal edema, no calf tenderness Labs/Diagnostic Data Labs/Diagnostic Data Laboratory Tests Test 07/04/24 16:29 07/04/24 11:55 07/04/24 10:38 07/04/24 07:58 Range/Units POC Glucose 119 H 121 H 159 H 70-106 mg/dl Stool Occult Blood Positive Negative Stool Occult Blood Sample #3 Negative Test 07/04/24 06:55 07/04/24 04:06 07/04/24 03:42 07/04/24 00:13 Range/Units Blood Gas Specimen Type Arterial Blood Gas Sample Site Left radial Blood Gas Patient Temperature 37.0 Arterial Blood Date Drawn [id number] Arterial Blood pH 7.411 7.350-7.450 Arterial Blood Partial Pressure CO2 33.9 L 35.0-48.0 mmHg Arterial Blood Partial Pressure O2 91.4 83.0-108.0 mmHg Arterial Blood HCO3 21.1 21.0-28.0 mmol/L Arterial Blood Oxygen Saturation 97.0 94.0-98.0 % Arterial Blood Base Excess -2.8 L -2.0-3.0 mmol/L Arterial Blood Oxyhemoglobin 96.3 94.0-98.0 % Arterial Blood Carboxyhemoglobin 0.5 0.5-1.5 % Arterial Blood Methemoglobin 0.2 0.0-1.5 % Serge Test Yes Blood Gas Total Hemoglobin 13.90 13.5-17.5 g/dL Blood Gas Set Respiration Rate 20.0 Blood Gas Modality Vent - ac FiO2 % 30.0 Blood Gas Tidal Volume 500.0 Blood Gas PEEP or CPAP 5.0 POC Glucose 213 H 247 H 70-106 mg/dl White Blood Count 4.4 4.4-10.8 10^3/uL Red Blood Count 4.69 4.5-5.90 10^6/uL Hemoglobin 13.9 # 13.5-17.5 g/dL Hematocrit 40.9 #L 41.0-53.0 % Mean Corpuscular Volume 87.2 80.0-100.0 fL Mean Corpuscular Hemoglobin 29.7 28.0-32.0 pg Mean Corpuscular Hemoglobin Concent 34.0 32.0-36.0 g/dL Red Cell Distribution Width 15.0 H 11.8-14.3 % Platelet Count 131 L 140-450 10^3/uL Mean Platelet Volume 9.0 6.9-10.8 fL Neutrophils (%) (Auto) 85.2 H 37.0-80.0 % Lymphocytes (%) (Auto) 5.5 L 10.0-50.0 % Monocytes (%) (Auto) 6.6 0.0-12.0 % Eosinophils (%) (Auto) 2.5 0.0-7.0 % Basophils (%) (Auto) 0.2 0.0-2.0 % Neutrophils # (Auto) 3.7 1.6-8.6 10 ^3/uL Lymphocytes # (Auto) 0.2 L 0.4-5.4 10 ^3/uL Monocytes # (Auto) 0.3 0-1.3 10 ^3/uL Eosinophils # (Auto) 0.1 0-0.8 10 ^3/uL Basophils # (Auto) 0 0-0.2 10 ^3/uL Nucleated Red Blood Cells 0.0 % Sodium Level 149 H 136-145 mmol/L Potassium Level 4.1 3.5-5.1 mmol/L Chloride Level 120 H 98-107 mmol/L Carbon Dioxide Level 24 20-31 mmol/L Anion Gap 5 5-15 Blood Urea Nitrogen 39 #H 9-23 mg/dL Creatinine 1.32 H 0.700-1.30 mg/dL Glomerular Filtration Rate Calc 66 >90 mL/min BUN/Creatinine Ratio 29.5 H 10.0-20.0 Serum Glucose 232 H 74-106 mg/dL Calcium Level 8.4 L 8.7-10.4 mg/dL Magnesium Level 2.4 1.6-2.6 mg/dL Total Bilirubin 0.2 0.2-1.0 mg/dL Aspartate Amino Transferase (AST) 96 H 13-40 U/L Alanine Aminotransferase (ALT) 20 7-40 U/L Alkaline Phosphatase 70 46-116 U/L Total Protein 5.4 L 5.7-8.2 g/dL Albumin 3.0 L 3.2-4.8 g/dL Triglycerides Level 253 H < 150 mg/dL Cholesterol Level 117 < 200 mg/dL LDL Cholesterol 38 < 100 mg/dL HDL Cholesterol 42 40-59 mg/dL Lipase 56 H 12-53 U/L Thyroid Stimulating Hormone (TSH) 0.38 L 0.55-4.78 uIU/mL Test 07/03/24 20:54 07/03/24 19:35 07/03/24 16:51 07/03/24 16:48 Range/Units POC Glucose 234 H 240 H 70-106 mg/dl Sodium Level 149 #H 136-145 mmol/L Potassium Level 4.8 3.5-5.1 mmol/L Chloride Level 116 H 98-107 mmol/L Carbon Dioxide Level 19 L 20-31 mmol/L Anion Gap 14 5-15 Blood Urea Nitrogen 53 H 9-23 mg/dL Creatinine 1.51 H 0.700-1.30 mg/dL Glomerular Filtration Rate Calc 56 >90 mL/min BUN/Creatinine Ratio 35.1 H 10.0-20.0 Serum Glucose 278 H 74-106 mg/dL Calcium Level 8.6 L 8.7-10.4 mg/dL Urine Opiates Screen Neg NEGATIVE Urine Fentanyl Screen Neg NEGATIVE Urine Barbiturates Screen Neg NEGATIVE Urine Phencyclidine Screen Neg NEGATIVE Urine Amphetamines Screen Neg NEGATIVE Urine Benzodiazepines Screen Pos NEGATIVE Urine Cocaine Screen Neg NEGATIVE Urine Cannabinoids Screen Neg NEGATIVE Test 07/03/24 13:06 07/03/24 12:14 07/03/24 10:34 07/03/24 10:06 Range/Units Sodium Level 144 143 # 136-145 mmol/L Potassium Level 4.5 4.4 3.5-5.1 mmol/L Chloride Level 112 H 111 H 98-107 mmol/L Carbon Dioxide Level 21 22 20-31 mmol/L Anion Gap 11 10 5-15 Blood Urea Nitrogen 51 H 57 H 9-23 mg/dL Creatinine 1.48 H 1.65 H 0.700-1.30 mg/dL Glomerular Filtration Rate Calc 58 51 >90 mL/min BUN/Creatinine Ratio 34.5 H 34.5 H 10.0-20.0 Serum Glucose 208 H 164 #H 74-106 mg/dL Calcium Level 9.3 9.2 8.7-10.4 mg/dL POC Glucose 186 H 234 H 70-106 mg/dl Hemoglobin A1c > 14.0 H <5.7 % A1C Test 07/03/24 09:13 07/03/24 07:39 07/03/24 07:15 07/03/24 06:07 Range/Units POC Glucose 287 H 303 H 386 H 70-106 mg/dl Blood Gas Specimen Type Arterial Blood Gas Sample Site Right radial Blood Gas Patient Temperature 37.0 Arterial Blood Date Drawn [id number] Arterial Blood pH 7.364 7.350-7.450 Arterial Blood Partial Pressure CO2 31.8 L 35.0-48.0 mmHg Arterial Blood Partial Pressure O2 121.9 H 83.0-108.0 mmHg Arterial Blood HCO3 17.7 L 21.0-28.0 mmol/L Arterial Blood Oxygen Saturation 98.4 H 94.0-98.0 % Arterial Blood Base Excess -6.3 L -2.0-3.0 mmol/L Arterial Blood Oxyhemoglobin 96.8 94.0-98.0 % Arterial Blood Carboxyhemoglobin 1.1 0.5-1.5 % Arterial Blood Methemoglobin 0.5 0.0-1.5 % Serge Test Modified Blood Gas Total Hemoglobin 16.30 13.5-17.5 g/dL Blood Gas Set Respiration Rate 20.0 Blood Gas Modality Vent - ac Blood Gas Spontaneous Rate 20 FiO2 % 30.0 Blood Gas Tidal Volume 500.0 Blood Gas PEEP or CPAP 5.0 Test 07/03/24 05:29 07/03/24 04:36 07/03/24 03:40 07/03/24 03:03 Range/Units White Blood Count 4.1 #L 4.4-10.8 10^3/uL Red Blood Count 5.68 4.5-5.90 10^6/uL Hemoglobin 16.7 13.5-17.5 g/dL Hematocrit 50.6 41.0-53.0 % Mean Corpuscular Volume 89.0 # 80.0-100.0 fL Mean Corpuscular Hemoglobin 29.3 28.0-32.0 pg Mean Corpuscular Hemoglobin Concent 33.0 32.0-36.0 g/dL Red Cell Distribution Width 14.6 H 11.8-14.3 % Platelet Count 180 140-450 10^3/uL Mean Platelet Volume 9.0 6.9-10.8 fL Neutrophils (%) (Auto) 78.8 37.0-80.0 % Lymphocytes (%) (Auto) 13.2 10.0-50.0 % Monocytes (%) (Auto) 7.3 0.0-12.0 % Eosinophils (%) (Auto) 0.3 0.0-7.0 % Basophils (%) (Auto) 0.4 0.0-2.0 % Neutrophils # (Auto) 3.3 1.6-8.6 10 ^3/uL Lymphocytes # (Auto) 0.5 0.4-5.4 10 ^3/uL Monocytes # (Auto) 0.3 0-1.3 10 ^3/uL Eosinophils # (Auto) 0 0-0.8 10 ^3/uL Basophils # (Auto) 0 0-0.2 10 ^3/uL Nucleated Red Blood Cells 0.3 % Sodium Level 138 137 # 136-145 mmol/L Potassium Level 4.8 5.1 3.5-5.1 mmol/L Chloride Level 105 104 98-107 mmol/L Carbon Dioxide Level 14 L 14 L 20-31 mmol/L Anion Gap 19 H 19 H 5-15 Blood Urea Nitrogen 54 H 52 H 9-23 mg/dL Creatinine 1.57 H 1.58 H 0.700-1.30 mg/dL Glomerular Filtration Rate Calc 54 53 >90 mL/min BUN/Creatinine Ratio 34.4 H 32.9 H 10.0-20.0 Serum Glucose 420 *H 510 #*H 74-106 mg/dL Calcium Level 9.3 9.2 8.7-10.4 mg/dL Total Bilirubin 0.2 0.2-1.0 mg/dL Aspartate Amino Transferase (AST) 15 13-40 U/L Alanine Aminotransferase (ALT) 14 7-40 U/L Alkaline Phosphatase 97 46-116 U/L Total Protein 6.1 5.7-8.2 g/dL Albumin 3.5 3.2-4.8 g/dL Triglycerides Level 344 H < 150 mg/dL Cholesterol Level 144 < 200 mg/dL LDL Cholesterol 50 < 100 mg/dL HDL Cholesterol 53 40-59 mg/dL Thyroid Stimulating Hormone (TSH) 0.42 L 0.55-4.78 uIU/mL POC Glucose 437 *H 542 *H 70-106 mg/dl Test 07/03/24 02:03 07/03/24 00:17 07/03/24 00:14 07/02/24 23:18 Range/Units Blood Gas Specimen Type Arterial Arterial Blood Gas Sample Site Right brachial Right brachial Blood Gas Patient Temperature 37.0 37.0 Arterial Blood Date Drawn [id number] Arterial Blood pH 7.192 *L 6.979 *L 7.350-7.450 Arterial Blood Partial Pressure CO2 29.7 L 33.8 L 35.0-48.0 mmHg Arterial Blood Partial Pressure O2 218.0 H > 529.9 *H 83.0-108.0 mmHg Arterial Blood HCO3 11.1 L 7.8 L 21.0-28.0 mmol/L Arterial Blood Oxygen Saturation 99.1 H 99.8 H 94.0-98.0 % Arterial Blood Base Excess -15.6 L -23.2 L -2.0-3.0 mmol/L Arterial Blood Oxyhemoglobin 97.6 98.3 H 94.0-98.0 % Arterial Blood Carboxyhemoglobin 0.9 0.8 0.5-1.5 % Arterial Blood Methemoglobin 0.6 0.7 0.0-1.5 % Serge Test N/a N/a Blood Gas Total Hemoglobin 15.40 16.50 13.5-17.5 g/dL Blood Gas Set Respiration Rate 20.0 18.0 Blood Gas Modality Vent - ac Vent - ac FiO2 % 50.0 100.0 Blood Gas Tidal Volume 500.0 500.0 Blood Gas PEEP or CPAP 5.0 5.0 Blood Gas Critical Value Read Back Yes Yes Blood Gas Notified Whom Dr. alba willis Blood Gas Notified Time [id number] Blood Gas Notified By Revenue Cycle Administrator corrine patton Revenue Cycle Administrator corrine patton Sodium Level 131 L 136-145 mmol/L Potassium Level 5.3 H 3.5-5.1 mmol/L Chloride Level 101 98-107 mmol/L Carbon Dioxide Level < 10 *L 20-31 mmol/L Anion Gap 20.43146 H 5-15 Blood Urea Nitrogen 45 #H 9-23 mg/dL Creatinine 1.49 H 0.700-1.30 mg/dL Glomerular Filtration Rate Calc 57 >90 mL/min BUN/Creatinine Ratio 30.2 H 10.0-20.0 Serum Glucose 644 *H 74-106 mg/dL Calcium Level 9.0 8.7-10.4 mg/dL POC Glucose > 600 *H 70-106 mg/dl Test 07/02/24 23:17 07/02/24 23:08 07/02/24 21:50 07/02/24 21:15 Range/Units POC Glucose 576 *H 70-106 mg/dl Urine Color Light-yellow Yellow Urine Clarity Clear Clear Urine pH 5.0 5.0-9.0 Urine Specific [place] 1.025 1.001-1.035 Urine Protein Negative Negative Urine Ketones 4+ H Negative Urine Blood Negative Negative /uL Urine Nitrite Negative Negative Urine Bilirubin Negative Negative Urine Urobilinogen Normal Negative mg/dL Urine Leukocyte Esterase Negative Negative /uL Urine RBC <1 0 - 3 /hpf Urine WBC 1 0 - 3 /hpf Urine Squamous Epithelial Cells None seen <5 /hpf Urine Bacteria None seen None Seen /hpf Urine Glucose 4+ H Normal mg/dL Sodium Level 129 L 136-145 mmol/L Potassium Level 5.6 *H 3.5-5.1 mmol/L Chloride Level 98 98-107 mmol/L Carbon Dioxide Level < 10 *L 20-31 mmol/L Anion Gap 21.68229 H 5-15 Blood Urea Nitrogen 58 H 9-23 mg/dL Creatinine 1.54 H 0.700-1.30 mg/dL Glomerular Filtration Rate Calc 55 >90 mL/min BUN/Creatinine Ratio 37.7 H 10.0-20.0 Serum Glucose 724 *H 74-106 mg/dL Calcium Level 8.9 8.7-10.4 mg/dL Phosphorus Level 4.4 2.4-5.1 mg/dL Magnesium Level 3.0 H 1.6-2.6 mg/dL Total Bilirubin 0.2 0.2-1.0 mg/dL Aspartate Amino Transferase (AST) 13 13-40 U/L Alanine Aminotransferase (ALT) 12 7-40 U/L Alkaline Phosphatase 101 46-116 U/L Total Protein 5.8 5.7-8.2 g/dL Albumin 3.3 3.2-4.8 g/dL Blood Gas Specimen Type Venous Blood Gas Sample Site Vbg - n/a Blood Gas Patient Temperature 37.0 Arterial Blood Date Drawn [id number] Serge Test N/a Venous Blood pH 7.179 *L 7.320-7.430 Venous Blood pCO2 at Patient Temp 17.8 L 38.0-54.0 mmHg Venous Blood pO2 at Patient Temp 70.7 H 23.0-48.0 mmHg Venous Blood HCO3 6.5 L 22.0-29.0 mmol/L Venous Blood Base Excess -19.6 L -2.0-3.0 mmol/L Blood Gas Liter Flow 2.00 Blood Gas Modality Nasal cannula FiO2 % 28.0 Blood Gas Critical Value Read Back Yes Blood Gas Notified Whom Dr. willis Blood Gas Notified Time [id number] Blood Gas Notified By Revenue Cycle Administrator corrine patton Serum Osmolality 354 H 278-298 mOsm/kg Test 07/02/24 20:57 Range/Units White Blood Count 5.6 4.4-10.8 10^3/uL Red Blood Count 5.04 4.5-5.90 10^6/uL Hemoglobin 15.3 13.5-17.5 g/dL Hematocrit 47.0 41.0-53.0 % Mean Corpuscular Volume 93.3 80.0-100.0 fL Mean Corpuscular Hemoglobin 30.3 28.0-32.0 pg Mean Corpuscular Hemoglobin Concent 32.5 32.0-36.0 g/dL Red Cell Distribution Width 15.1 H 11.8-14.3 % Platelet Count 195 140-450 10^3/uL Mean Platelet Volume 9.9 6.9-10.8 fL Neutrophils (%) (Auto) 91.4 H 37.0-80.0 % Lymphocytes (%) (Auto) 3.1 L 10.0-50.0 % Monocytes (%) (Auto) 5.2 0.0-12.0 % Eosinophils (%) (Auto) 0.1 0.0-7.0 % Basophils (%) (Auto) 0.2 0.0-2.0 % Neutrophils # (Auto) 5.2 1.6-8.6 10 ^3/uL Lymphocytes # (Auto) 0.2 L 0.4-5.4 10 ^3/uL Monocytes # (Auto) 0.3 0-1.3 10 ^3/uL Eosinophils # (Auto) 0 0-0.8 10 ^3/uL Basophils # (Auto) 0 0-0.2 10 ^3/uL Nucleated Red Blood Cells 0.0 % Lactic Acid Level 1.0 0.4-2.0 mmol/L Beta-Hydroxybutyric Acid > 4.500 H < 0.4 mmol/L Assessment Acute kidney injury hemodynamic mediated etiology Baseline Chronic kidney disease three B Diabetic ketoacidosis Ventilator-dependent hypoxic respiratory Hypernatremia Shock Recommendations Agree with half-normal saline given hyponatremia Maintain map greater than 65 Currently on two vasopressors Follow closely Reviewed vital signs, lab work, imaging studies, medications, microbiology, other physician recommendations Total time spent 80 minutes More than 50% of the time spent providing direct [id number] care . Thank you for allowing me to participate in the care of your patient. Plan discussed with: Spouse GAGE JETT MD Jul 04, 2024 18:28
[2024-07-04] MEDS: PANTOPRAZOLE 40 MG/10 ML VIAL INJ IV SCH (21:21)
--- NOTE | 2024-07-04 23:02 | DVHPN2 ---
Progress Note - Dictate Date Seen: Jul 04, 2024 Medical Necessity Reason Pt with a Central, PICC or Fol: Yes The following are medically ne: Jesus Catheter Reason for jesus catheter: Strict I&O Subjective Patient seen and examined at bedside. Sedated, intubated on mechanical ventilator. Overnight events reviewed. vital signs Vital Sign Date Time Temp Pulse Resp B/P (MAP) Pulse Ox O2 Delivery O2 Flow Rate FiO2 07/04/24 22:12 67 22 116/70 (85) 100 30 07/04/24 21:45 98.4 209.1 07/04/24 20:02 Mechanical Ventilator+ 07/03/24 07:30 0 Total Intake and Output 07/03/24 07/03/24 07/04/24 15:00 23:00 07:00 Intake Total 2474 ml 1004.018 ml 1347.802 ml Output Total 2200 ml Balance 2474 ml 1004.018 ml -852.198 ml medications Current Medications Medications Dose Ordered Sig/Sandra Route Start Time Stop Time Status Last Admin Dose Admin Propofol 100 ml @ 2.181 mls/ hr Q24H IV 07/02/24 22:45 07/04/24 18:39 13.086 MLS/HR Ondansetron HCl 4 mg Q4HP PRN IV 07/02/24 23:15 Nitroglycerin 0.4 mg Q5MINP PRN SL 07/02/24 23:15 Morphine Sulfate 2 mg Q30M PRN IV 07/02/24 23:15 Midazolam HCl 50 ml @ 1 mls/hr Q24H IV 07/03/24 01:15 07/04/24 18:15 8 MLS/HR Vasopressin 20 units/Sodium Chloride 100 ml @ 9 mls/hr Q11H7M IV 07/03/24 10:00 07/04/24 21:13 9 MLS/HR Acetaminophen 650 mg Q6HP PRN GT 07/03/24 12:30 Hold 07/04/24 03:53 650 MG Diagnostic Test (Pha) 1 strip IQ4HR 07/03/24 16:00 07/04/24 20:00 1 STRIP Insulin Human Regular IQ4HR SC 07/03/24 16:00 07/04/24 20:34 2 UNITS Dextrose 50 ml UD PRN IV 07/03/24 12:30 Enoxaparin Sodium 40 mg DAILY SC 07/04/24 10:00 07/04/24 09:52 40 MG Atorvastatin Calcium 40 mg HS GT 07/03/24 22:00 07/04/24 21:21 40 MG Phenylephrine HCl 80 mg/Sodium Chloride 250 ml @ 7.5 mls/hr Q24H IV 07/03/24 15:00 07/03/24 16:00 24.375 MLS/HR Norepinephrine Bitartrate 32 mg/ Sodium Chloride 250 ml @ 0.938 mls/ hr Q24H IV 07/03/24 15:00 07/04/24 10:50 7.5 MLS/HR Acetaminophen 1,000 mg Q8H PRN IV 07/03/24 19:45 Insulin Glargine 10 units BID@0700,2200 SC 07/03/24 22:00 07/04/24 21:37 10 UNITS Sodium Chloride 1,000 ml @ 125 mls/hr Q8H IV 07/03/24 20:45 07/04/24 18:15 125 MLS/HR Vancomycin HCl 0 ml @ 0 mls/hr UD IV 07/03/24 20:45 Purified Water 200 ml Q6HR GT 07/04/24 10:00 07/04/24 16:42 200 ML Vancomycin HCl 500 mg/Dextrose 100 ml @ 200 mls/hr Q12H IV 07/04/24 12:00 07/04/24 12:43 200 MLS/HR Pantoprazole Sodium 40 mg BID IV 07/04/24 22:00 07/04/24 21:21 40 MG Cefepime HCl 50 ml @ 12.5 mls/hr Q8H IV 07/04/24 18:00 07/04/24 18:14 12.5 MLS/HR objective Gen.: Patient lying in bed in medical ICU. Sedated, intubated on mechanical ventilator. Head: Normocephalic, atraumatic. Eyes: PERRLA. Ears: Normal external anatomy. Throat: Endotracheal tube and orogastric tube in place. Neck: Supple, trachea midline. Chest: Transmitted breath sounds bilaterally. Decreased air entry bilaterally. No wheezing. Bibasilar crackles. Cardiovascular: Positive S1, positive S2. Regular rate and rhythm. Abdomen: Positive bowel sounds in all 4 quadrants. Soft, nontender, nondistended. : Jesus in place. Normal external genitalia. Rectal: Deferred. Skin: Warm, dry. Intact. Extremities: 2+ radial pulses bilaterally. No lower extremity edema. Neuro: Sedated. laboratory and microbiology Laboratory Tests 07/04/24 03:42 Test 07/04/24 03:42 Range/Units Serum Glucose 232 H 74-106 mg/dL Assessment/Plan Impression: Acute hypoxic respiratory failure On mechanical ventilator Diabetic ketoacidosis Acute kidney injury Cachexia with a BMI of 1816.8 Events Vent support On assist-control mode with a respiratory rate of 20, tidal volume 500, PEEP of 5, FiO2 30% Creatinine trending down Monitor sodium Free water for hypernatremia CXR reviewed, no acute opacities. ABG reviewed, compensated On pressors for hemodynamic support. On vasopressin 0.03 and Levophed 8 mcg/min Titrate to keep MAP above 65 mmHg/SBP above 90 mmHg. Propofol for sedation Continue abx Blood cx - GPC in clusters F/u sensitivities Monitor Hgb - FOBT positive Protonix BID for GI prophylaxis Rest of plan as noted below Plan: s/p intubation on mechanical ventilator CT head demonstrates no acute intracranial hemorrhage. Partial CXR image and report reviewed. No acute opacities. Devices in place. ABG reviewed. Compensated. Metabolic Acidosis with respiratory compensation. On assist-control mode with a respiratory rate of 20, tidal volume 500, PEEP of 5, FiO2 30% Titrate FIO2 to keep O2 saturation above 92%. VAP bundle Daily ABG and CXR while intubated. Sedate for ventilatory synchrony, on Versed On pressors for hemodynamic support. Titrate to keep MAP above 65 mmHg/SBP above 90 mmHg. Continue antibiotics. F/u cultures. Monitor renal function due to Acute kidney injury. Monitor electrolytes. Supplement as necessary. IVF NS at 100mL/hour Insulin drip Accucheks, ISS. GI/DVT prophylaxis. Condition: Critical Prognosis: Poor given multiple comorbidities. Rest of plan per hospitalist and other consultants. A total of 35 minutes of critical care time was spent reviewing the patient record, examining the patient, making a diagnostic and therapeutic plan, discussing this plan with the medical personnel, following up on diagnostic studies and following the patient for clinical stability excluding any and all procedures. At least 50% of this time was spent in direct, [id number] contact. Thank you IZAIAH Cardona for allowing me to participate in this patient's care. Further recommendations will depend on patient's clinical course. Please do not hesitate to contact me if you have any questions or concerns. This medical document was created using an electronic medical record system with [employer] system. Although this document has been carefully reviewed, there may still be some phonetic and typographical errors. These areas are purely typographical due to imperfections of the software programs, and do not reflect any compromise in the patient's medical care. Dietary Evaluation Review Comments: 1) If GI is preferred route consider Nepro @ 45 ml/hr goal rate as tolerated 2) If pt remains NPO >7 days consider TPN to meet at least 75% of estimated needs 3) Advance pt diet when medically feasible to a CCHO 60g, Renal diet modified per RECREATION PROGRAM SPECIALIST recommendations 4) Continue current plan of care Expected Outcomes/Goals: 1. Pt will consume >75% of estimated needs within 2-3 days Plan discussed with: Other (LUKE Young) Critical Care Time(min): 35 NADER ALLEN MD Jul 04, 2024 23:02
[2024-07-05] VITALS (108 sets, daily range): BP systolic 68–128; BP diastolic 48–80; PULSE 65–76; RESP 12–29; TEMP 97.2–99.1; O2SAT 93–100
--- NOTE | 2024-07-05 05:27 | DVH ---
CHEST RADIOGRAPH Indication:vent Technique: Single frontal view of the chest was obtained COMPARISON: XY CHEST PORTABLE on DOS: 07/04/24, XY CHEST XRAY 1 VIEW on DOS: 07/04/24, XY CHEST EDITH BLE on DOS: 07/02/24 FINDINGS: Lines and Tubes: Endotracheal tube and enteric catheter in satisfactory position. Lungs: Mild increased interstitial prominence. Pleura: No effusion. No pneumothorax. Cardiomediastinal contours: Unremarkable Bones: Unremarkable IMPRESSION: Lines and tubes in satisfactory position. No significant interval change.
[2024-07-05 05:30] LABS: Hematocrit 34.6 % (41.0-53.0); Hemoglobin 11.8 g/dL (13.5-17.5); Mean Corpuscular Hemoglobin 30.2 pg (28.0-32.0); Mean Corpuscular Hgb Conc. 34.2 g/dL (32.0-36.0); Mean Corpuscular Volume 88.3 fL (80.0-100.0); Platelet Count (auto) 89 10^3/uL (140-450); Red Blood Cells 3.92 10^6/uL (4.5-5.90); Red Cell Distribution Width 15.1 % (11.8-14.3); White Blood Cell 7.6 10^3/uL (4.4-10.8)
[2024-07-05 05:36] LABS: Basophils % (manual) 0 (0.0-2.0); Blast Cells 0; Metamyelocytes % 0; Promyelocytes % 0; Reactive Lymphocytes 0
[2024-07-05 05:48] LABS: Alanine Aminotransferase 33 U/L (7-40); Alkaline Phosphatase 69 U/L (46-116); Anion Gap 6 (5-15); BUN/Creatinine Ratio 31.8 (10.0-20.0); Blood Urea Nitrogen 21 mg/dL (9-23); Calcium 7.9 mg/dL (8.7-10.4); Carbon Dioxide 25 mmol/L (20-31); Chloride 114 mmol/L (98-107); Glucose 157 mg/dL (74-106); Potassium 3.3 mmol/L (3.5-5.1); Sodium 145 mmol/L (136-145)
[2024-07-05 05:49] LABS: Albumin 2.8 g/dL (3.2-4.8); Aspartate Aminotransferase 127 U/L (13-40); Bilirubin, Total 0.3 mg/dL (0.2-1.0)
[2024-07-05 06:09] LABS: Base Excess -1.3 mmol/L (-2.0-3.0)
[2024-07-05 06:48] LABS: Band Neutrophils % (manual) 20; Eosinophils % (manual) 3 (0-7); Monocytes % (manual) 4 (0-12); Myelocytes % 1
[2024-07-05 06:50] LABS: Platelet Estimate Decreased
[2024-07-05 06:51] LABS: Lymphocytes % (manual) 8 (10.0-50.0)
[2024-07-05] MEDS: POTASSIUM CHL 20MEQ/100ML 100 ML IV ONE (06:59)
--- NOTE | 2024-07-05 08:52 | DVHPN2 ---
Progress Note Date Seen: Jul 05, 2024 Medical Necessity Reason Pt with a Central, PICC or Fol: Yes The following are medically ne: Jesus Catheter Reason for jesus catheter: Strict I&O Subjective Other Systems: stable on 2 pressors Objective vital signs Vital Sign Date Time Temp Pulse Resp B/P (MAP) Pulse Ox O2 Delivery O2 Flow Rate FiO2 07/05/24 08:16 68 22 106/62 (77) 99 30 07/05/24 07:00 97.7 207.9 07/04/24 20:02 Mechanical Ventilator+ 07/03/24 07:30 0 Total Intake and Output 07/04/24 07/04/24 07/05/24 15:00 23:00 07:00 Intake Total 1598.442 ml 1753.762 ml 1875.243 ml Output Total 1850 ml 1100 ml Balance 1598.442 ml -96.238 ml 775.243 ml medications Current Medications Medications Dose Ordered Sig/Sandra Route Start Time Stop Time Status Last Admin Dose Admin Propofol 100 ml @ 2.181 mls/ hr Q24H IV 07/02/24 22:45 07/05/24 01:20 10.905 MLS/HR Ondansetron HCl 4 mg Q4HP PRN IV 07/02/24 23:15 Nitroglycerin 0.4 mg Q5MINP PRN SL 07/02/24 23:15 Morphine Sulfate 2 mg Q30M PRN IV 07/02/24 23:15 Midazolam HCl 50 ml @ 1 mls/hr Q24H IV 07/03/24 01:15 07/05/24 06:52 5 MLS/HR Vasopressin 20 units/Sodium Chloride 100 ml @ 9 mls/hr Q11H7M IV 07/03/24 10:00 07/05/24 06:49 9 MLS/HR Acetaminophen 650 mg Q6HP PRN GT 07/03/24 12:30 Hold 07/04/24 03:53 650 MG Diagnostic Test (Pha) 1 strip IQ4HR 07/03/24 16:00 07/05/24 08:04 1 STRIP Insulin Human Regular IQ4HR SC 07/03/24 16:00 07/05/24 08:08 2 UNITS Dextrose 50 ml UD PRN IV 07/03/24 12:30 Enoxaparin Sodium 40 mg DAILY SC 07/04/24 10:00 07/04/24 09:52 40 MG Atorvastatin Calcium 40 mg HS GT 07/03/24 22:00 07/04/24 21:21 40 MG Phenylephrine HCl 80 mg/Sodium Chloride 250 ml @ 7.5 mls/hr Q24H IV 07/03/24 15:00 07/03/24 16:00 24.375 MLS/HR Norepinephrine Bitartrate 32 mg/ Sodium Chloride 250 ml @ 0.938 mls/ hr Q24H IV 07/03/24 15:00 07/04/24 10:50 7.5 MLS/HR Acetaminophen 1,000 mg Q8H PRN IV 07/03/24 19:45 Insulin Glargine 10 units BID@0700,2200 [place] 07/03/24 22:00 07/05/24 06:17 10 UNITS Sodium Chloride 1,000 ml @ 125 mls/hr Q8H IV 07/03/24 20:45 07/05/24 02:32 125 MLS/HR Vancomycin HCl 0 ml @ 0 mls/hr UD IV 07/03/24 20:45 Purified Water 200 ml Q6HR GT 07/04/24 10:00 07/05/24 06:15 200 ML Vancomycin HCl 500 mg/Dextrose 100 ml @ 200 mls/hr Q12H IV 07/04/24 12:00 07/05/24 01:23 200 MLS/HR Pantoprazole Sodium 40 mg BID IV 07/04/24 22:00 07/04/24 21:21 40 MG Cefepime HCl 50 ml @ 12.5 mls/hr Q8H IV 07/04/24 18:00 07/05/24 03:12 12.5 MLS/HR Examination: GENERAL:Abnormal, HEENT:Abnormal, LUNGS:Abnormal, CVS:Abnormal, ABDOMEN:Abnormal laboratory and microbiology Laboratory Tests 07/05/24 04:59 Test 07/05/24 04:59 Range/Units Serum Glucose 157 H 74-106 mg/dL Microbiology Date/Time Source Procedure Growth Status 07/03/24 19:35 Blood Blood Culture - Preliminary Resulted Problem List/Assessment/Plan Problem List/Assessment/Plan DKA hypotension shock obesity HL acidemia IVF continued normal lvef on echo troponin likely 2/2 to severe acidemia and metabolic derangements wean off pressors bp 110s now--cont to wean off please call for ?s will sign off Plan discussed with: Other (rn) Dietary Evaluation Review Comments: 1) If GI is preferred route consider Nepro @ 45 ml/hr goal rate as tolerated 2) If pt remains NPO >7 days consider TPN to meet at least 75% of estimated needs 3) Advance pt diet when medically feasible to a CCHO 60g, Renal diet modified per [employer] TECHNICIAN recommendations 4) Continue current plan of care Expected Outcomes/Goals: 1. Pt will consume >75% of estimated needs within 2-3 days Date of Service: Jul 05, 2024 Billing Provider: INGRID JUAN MD Common Visit Codes: NOT BILLABLE INGRID JUAN MD Jul 05, 2024 08:52
--- NOTE | 2024-07-05 11:39 | DVHPN2 ---
Progress Note Date Seen: Jul 05, 2024 Medical Necessity Reason Pt with a Central, PICC or Fol: Yes The following are medically ne: Jesus Catheter Reason for jesus catheter: Strict I&O Subjective Review of Systems: RESPIRATORY:Abnormal Other Systems: Patient seen and examined by myself today in follow-up Patient remained intubated on ventilator Objective vital signs Vital Sign Date Time Temp Pulse Resp B/P (MAP) Pulse Ox O2 Delivery O2 Flow Rate FiO2 07/05/24 09:56 73 24 94/62 (73) 99 30 07/05/24 09:15 98.6 209.5 07/05/24 08:00 Mechanical Ventilator+ 07/03/24 07:30 0 Total Intake and Output 07/04/24 07/04/24 07/05/24 15:00 23:00 07:00 Intake Total 1598.442 ml 1753.762 ml 1875.243 ml Output Total 1850 ml 1100 ml Balance 1598.442 ml -96.238 ml 775.243 ml medications Current Medications Medications Dose Ordered Sig/Sandra Route Start Time Stop Time Status Last Admin Dose Admin Propofol 100 ml @ 2.181 mls/ hr Q24H IV 07/02/24 22:45 07/05/24 01:20 10.905 MLS/HR Ondansetron HCl 4 mg Q4HP PRN IV 07/02/24 23:15 Nitroglycerin 0.4 mg Q5MINP PRN SL 07/02/24 23:15 Morphine Sulfate 2 mg Q30M PRN IV 07/02/24 23:15 Midazolam HCl 50 ml @ 1 mls/hr Q24H IV 07/03/24 01:15 07/05/24 06:52 5 MLS/HR Vasopressin 20 units/Sodium Chloride 100 ml @ 9 mls/hr Q11H7M IV 07/03/24 10:00 07/05/24 06:49 9 MLS/HR Acetaminophen 650 mg Q6HP PRN GT 07/03/24 12:30 Hold 07/04/24 03:53 650 MG Diagnostic Test (Pha) 1 strip IQ4HR 07/03/24 16:00 07/05/24 08:04 1 STRIP Insulin Human Regular IQ4HR SC 07/03/24 16:00 07/05/24 08:08 2 UNITS Dextrose 50 ml UD PRN IV 07/03/24 12:30 Enoxaparin Sodium 40 mg DAILY SC 07/04/24 10:00 07/04/24 09:52 40 MG Atorvastatin Calcium 40 mg HS GT 07/03/24 22:00 07/04/24 21:21 40 MG Phenylephrine HCl 80 mg/Sodium Chloride 250 ml @ 7.5 mls/hr Q24H IV 07/03/24 15:00 07/03/24 16:00 24.375 MLS/HR Norepinephrine Bitartrate 32 mg/ Sodium Chloride 250 ml @ 0.938 mls/ hr Q24H IV 07/03/24 15:00 07/04/24 10:50 7.5 MLS/HR Acetaminophen 1,000 mg Q8H PRN IV 07/03/24 19:45 Insulin Glargine 10 units BID@0700,2200 SC 07/03/24 22:00 07/05/24 06:17 10 UNITS Sodium Chloride 1,000 ml @ 125 mls/hr Q8H IV 07/03/24 20:45 07/05/24 10:38 125 MLS/HR Vancomycin HCl 0 ml @ 0 mls/hr UD IV 07/03/24 20:45 Purified Water 200 ml Q6HR GT 07/04/24 10:00 07/05/24 06:15 200 ML Vancomycin HCl 500 mg/Dextrose 100 ml @ 200 mls/hr Q12H IV 07/04/24 12:00 07/05/24 01:23 200 MLS/HR Pantoprazole Sodium 40 mg BID IV 07/04/24 22:00 07/05/24 10:24 40 MG Cefepime HCl 50 ml @ 12.5 mls/hr Q8H IV 07/04/24 18:00 07/05/24 10:24 12.5 MLS/HR Examination: LUNGS:Normal, CVS:Normal, MSK:Normal laboratory and microbiology Laboratory Tests 07/05/24 04:59 Test 07/05/24 04:59 Range/Units Serum Glucose 157 H 74-106 mg/dL Microbiology Date/Time Source Procedure Growth Status 07/03/24 19:35 Blood Blood Culture - Preliminary Resulted Problem List/Assessment/Plan Problem List/Assessment/Plan Acute kidney injury hemodynamic mediated etiology Acute respiratory failure, intubated on ventilator Diabetic ketoacidosis Uncontrolled diabetes mellitus Hypernatremia due to dehydration Gram-positive bacteremia Hypoalbuminemia Recommendations Kidney function is improving Increased urine output Hyponatremia slowly resolving I agree with IV hypotonic fluid hydration Insulin sliding scale IV antibiotics We will continue to monitor Plan discussed with: Other (Nurse) Dietary Evaluation Review Comments: 1) If GI is preferred route consider Nepro @ 45 ml/hr goal rate as tolerated 2) If pt remains NPO >7 days consider TPN to meet at least 75% of estimated needs 3) Advance pt diet when medically feasible to a CCHO 60g, Renal diet modified per US[employer] WORKER recommendations 4) Continue current plan of care Expected Outcomes/Goals: 1. Pt will consume >75% of estimated needs within 2-3 days NAKITA SIFUENTES MD Jul 05, 2024 11:39
--- NOTE | 2024-07-05 11:41 | ECG ---
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
[2024-07-05] MEDS: VANCOMYCIN 1GM/250ML KIT 200 ML IV SCH (12:11)
--- NOTE | 2024-07-05 13:32 | DVHPN2 ---
Subjective Better BP is better On small dose Levophed Blood Cx: + Changes from previous H/P or p: Changes Eyes: No Pain, No Vision change, No Conjunctivae inflammation, No Eyelid inflammation, No Other, No Redness ENT: No Ear pain, No Ear discharge, No Nose pain, No Nose discharge, No Nose congestion, No Mouth pain, No Mouth swelling, No Throat pain, No Throat swelling, No Other Cardiovascular: No Chest Pain, No Palpitations, No Orthopnea, No Paroxysmal Noc. Dyspnea, No Edema, No Lt Headedness, No Other Respiratory: No Cough, No Dry, No Shortness of breath, No SOB with excertion, No Wheezing, No Hemoptysis, No Pleuritic Pain, No Sputum, No Other Gastrointestinal: No Nausea, No Vomiting, No Abdominal Pain, No Diarrhea, No Constipation, No Melena, No Hematochezia, No Other Genitourinary: No Dysuria, No Frequency, No Incontinence, No Hematuria, No Retention, No Other Musculoskeletal: No other, No neck pain, No shoulder pain, No arm pain, No back pain, No hand pain, No leg pain, No foot pain Skin: No Rash, No Lesions, No Jaundice, No Bruising, No Other Objective Vitals Vital Signs Date Time Temp Pulse Resp B/P (MAP) Pulse Ox O2 Delivery O2 Flow Rate FiO2 07/05/24 11:35 71 23 95/53 (67) 97 30 07/05/24 11:15 99.0 210.2 07/05/24 08:00 Mechanical Ventilator+ 07/03/24 07:30 0 Intake/Output Intake and Output 07/05/24 07:00 Intake Total 5227.447 ml Output Total 2950 ml Balance 2277.447 ml Intake Oral 850 ml IV Total 4377.447 ml Output Urine Total 2950 ml # Bowel Movements 8 General Appearance: Other (intubated and sedated) Lungs: Clear to auscultation, Normal air movement Cardiovascular: Regular rate, Normal S1 Abdomen: Normal bowel sounds, Soft, No tenderness Extremities: No edema Medications Current Medications Medications Dose Ordered Sig/Sandra Route Start Time Stop Time Status Last Admin Dose Admin Propofol 100 ml @ 2.181 mls/ hr Q24H IV 07/02/24 22:45 07/05/24 12:12 6.543 MLS/HR Ondansetron HCl 4 mg Q4HP PRN IV 07/02/24 23:15 Nitroglycerin 0.4 mg Q5MINP PRN SL 07/02/24 23:15 Morphine Sulfate 2 mg Q30M PRN IV 07/02/24 23:15 Midazolam HCl 50 ml @ 1 mls/hr Q24H IV 07/03/24 01:15 07/05/24 06:52 5 MLS/HR Vasopressin 20 units/Sodium Chloride 100 ml @ 9 mls/hr Q11H7M IV 07/03/24 10:00 07/05/24 06:49 9 MLS/HR Acetaminophen 650 mg Q6HP PRN GT 07/03/24 12:30 Hold 07/04/24 03:53 650 MG Diagnostic Test (Pha) 1 strip IQ4HR 07/03/24 16:00 07/05/24 12:11 1 STRIP Insulin Human Regular IQ4HR SC 07/03/24 16:00 07/05/24 08:08 2 UNITS Dextrose 50 ml UD PRN IV 07/03/24 12:30 Enoxaparin Sodium 40 mg DAILY SC 07/04/24 10:00 07/04/24 09:52 40 MG Atorvastatin Calcium 40 mg HS GT 07/03/24 22:00 07/04/24 21:21 40 MG Phenylephrine HCl 80 mg/Sodium Chloride 250 ml @ 7.5 mls/hr Q24H IV 07/03/24 15:00 07/03/24 16:00 24.375 MLS/HR Norepinephrine Bitartrate 32 mg/ Sodium Chloride 250 ml @ 0.938 mls/ hr Q24H IV 07/03/24 15:00 07/04/24 10:50 7.5 MLS/HR Acetaminophen 1,000 mg Q8H PRN IV 07/03/24 19:45 Insulin Glargine 10 units BID@0700,2200 SC 07/03/24 22:00 07/05/24 06:17 10 UNITS Sodium Chloride 1,000 ml @ 125 mls/hr Q8H IV 07/03/24 20:45 07/05/24 10:38 125 MLS/HR Vancomycin HCl 0 ml @ 0 mls/hr UD IV 07/03/24 20:45 Purified Water 200 ml Q6HR GT 07/04/24 10:00 07/05/24 12:11 200 ML Pantoprazole Sodium 40 mg BID IV 07/04/24 22:00 07/05/24 10:24 40 MG Cefepime HCl 50 ml @ 12.5 mls/hr Q8H IV 07/04/24 18:00 07/05/24 10:24 12.5 MLS/HR Vancomycin HCl 200 ml @ 200 mls/hr Q12H IV 07/05/24 12:00 07/05/24 12:11 200 MLS/HR Laboratory Results Laboratory Tests 07/05/24 04:59 Chemistry Test 07/05/24 04:59 Albumin 2.8 g/dL (3.2-4.8) L Calcium Level 7.9 mg/dL (8.7-10.4) L Magnesium Level 2.0 mg/dL (1.6-2.6) Total Protein 5.0 g/dL (5.7-8.2) L LFT Test 07/05/24 04:59 Alanine Aminotransferase (ALT) 33 U/L (7-40) Alkaline Phosphatase 69 U/L (46-116) Aspartate Amino Transferase (AST) 127 U/L (13-40) H Total Bilirubin 0.3 mg/dL (0.2-1.0) Urinalysis Test 07/02/24 23:08 Urine Color Light-yellow (Yellow) Urine Clarity Clear (Clear) Urine pH 5.0 (5.0-9.0) Urine Specific [place] 1.025 (1.001-1.035) Urine Protein Negative (Negative) Urine Ketones 4+ (Negative) H Urine Blood Negative /uL (Negative) Urine Nitrite Negative (Negative) Urine Bilirubin Negative (Negative) Urine Urobilinogen Normal mg/dL (Negative) Urine Leukocyte Esterase Negative /uL (Negative) Urine RBC <1 /hpf (0 - 3) Urine WBC 1 /hpf (0 - 3) Urine Squamous Epithelial Cells None seen /hpf (<5) Urine Bacteria None seen /hpf (None Seen) Urine Glucose 4+ mg/dL (Normal) H Blood Gas Results Test 07/05/24 06:05 Arterial Blood pH 7.439 (7.350-7.450) FiO2 % 30.0 Microbiology Microbiology Date/Time Source Procedure Growth Status 07/03/24 20:12 Nose MRSA Screen - Final Complete 07/03/24 19:35 Blood Blood Culture - Preliminary Resulted Assessment/Plan Assessment/Plan DKA, resolved DM, uncontrolled Acute hypoxic respiratory failure s/p intubation on mechanical ventilator ZOYA Sepsis w septic shock Hypernatremia Fever B feet ulcers PLAN: 07/03/2024: IV fluids, change to 1/2 NS Nephrology consult Vasopressors as needed Blood, urine and sputum cultures IV antibiotics: Empiric, change to Cefepime and Vanco Sedation as needed Start Lantus Full code Discussed with family at the bedside Advance directives discussed with family x 20 minutes 07/04/2024: Diarrhea: Check the stools for C diff ZOYA: Continue IV fluids Hypernatremia: Start free water Sepsis with septic shock: Continue cefepime and vancomycin Hypotension: Vasopressors Uterine cultures and respiratory cultures are Discussed with the family at the bedside Lantus 10 units twice a day Accu-Cheks q.4 hours 07/05/24: Continue IV fluids 1/2 NS Vancomycin + Cefepime Free water Minimize sedation Taper down Levophed Podiatry consult MRSA screen: Negative Lantus Discussed with at the bedside Plan discussed with: Spouse, Other My Orders Orders - MEHRAN GUERRERO MD Procedure Category Date Status Time Pantoprazole PHA 07/04/24 In Process (Protonix) 22:00 Cefepime 1gm/ 50ml PHA 07/04/24 In Process (Maxipime 1gm/50ml) 18:00 Vancomycin 1gm/200ml PHA 07/05/24 In Process Premix 12:00 Vancomycin,Trough LAB 07/06/24 Verified 23:00 Complete Blood Count LAB 07/06/24 Verified 04:00 Creatinine LAB 07/06/24 Verified 04:00 Date of Service: Jul 05, 2024 Billing Provider: MEHRAN GUERRERO MD Common Visit Codes: [id number] CARE 30-74 MIN MEHRAN GUERRERO MD Jul 05, 2024 13:32
--- NOTE | 2024-07-05 14:39 | DVHINCON2 ---
Date Seen: Jul 05, 2024 Reason for Consultation Bilateral foot wounds History of Present Illness The patient is a 49-year-old male with past medical history of diabetes mellitus who presented to [facility] ED for evaluation of altered level of consciousness. As reported by EMS, patient was picked up at home due to change in mental status, altered, confused, disoriented for the past few days and was noted to have increased thirst, urination, and polyphagia. Patient was seen and evaluated in the ED, laboratory data shows WBC 5.6, platelets 195, sodium 129, potassium 5.6, BUN 58, creatinine 1.54, glucose 724, anion gap 21, acetone greater > 4.500, magnesium 3.0, blood pressure 84/53, heart rate 64, temperature 98.2 F, O2 saturation 99% on oxygen. Patient was started on insulin drip, subsequently intubated, please see medication section in the computer. On my assessment, patient remains altered, no diaphoresis, no palpitations, no loss of consciousness, no nausea, no vomiting, no fever, no chills. Patient was admitted for further evaluation medical management. Past Medical History See H&P Past Surgical History See H&P Allergies: Coded Allergies: NO KNOWN ALLERGIES (Unverified , 07/02/24) Home Meds Reported Medications Glipizide (Glipizide) 5 Mg Tab, 5 MG PO DAILY for 30 Days, MG 07/04/24 Metformin Hydrochloride (Metformin Hcl) 500 Mg Tab, 500 MG PO IBID for 30 Days, MG 07/04/24 Dapagliflozin Propanediol (Farxiga) 10 Mg Tab, 10 MG PO DAILY, TAB 07/04/24 Gabapentin (Gabapentin) 600 Mg Tab, 600 MG PO BID for 30 Days, MG 07/04/24 Current Medications Current Medications Medications (Trade) Dose Ordered Sig/Sandra Route PRN Reason Start Time Stop Time Status Last Admin Pantoprazole Sodium (Protonix) 40 mg BID IV 07/04/24 22:00 07/05/24 10:24 Cefepime HCl 50 ml @ 12.5 mls/hr Q8H IV 07/04/24 18:00 07/05/24 10:24 Vancomycin HCl 200 ml @ 200 mls/hr Q12H IV 07/05/24 12:00 07/05/24 12:11 Vital Signs Vital Signs Date Time Temp Pulse Resp B/P (MAP) Pulse Ox O2 Delivery O2 Flow Rate FiO2 07/05/24 14:22 75 21 102/53 (69) 96 30 07/05/24 11:15 99.0 210.2 07/05/24 08:00 Mechanical Ventilator+ 07/03/24 07:30 0 Physical Exam DERMATOLOGIC EXAM: - Skin is dry and cool to the touch dry bilaterally. - Nails 1-5 of the bilateral foot are thickened, discolored, dystrophic, and tender to palpate with subungual debris - Hair loss noted to bilateral feet - dry eschar right medial ankle Wound #1: Location: Right sub 1st Measurements: Length 1 cm x width 1-1/2 cm x depth 2 cm. Wound margins: Hyperkeratotic. Wound base: Full thickness. General Appearance: Healthy and bleeding. Probes to Bone: Yes Purulent drainage: No Serous drainage: No Erythema: Periwound Wound #1: Location: Left medial heel Measurements: Length 1 cm x width 0.8 cm x depth 2 cm. Wound margins: Hyperkeratotic. Wound base: Full thickness. General Appearance: Healthy and bleeding. Probes to Bone: Yes Purulent drainage: No Serous drainage: No Erythema: Periwound VASCULAR EXAM: - DP and PT pulses are palpable bilaterally. - MATERIALS MANAGEMENT CLERK is brisk to all digits. - Feet are cool to touch compared to lower legs bilaterally. NEUROLOGIC EXAM: - Normal light touch sensation to the superficial peroneal, deep peroneal, sural, saphenous, and tibial nerve branches. - Protective sensation is diminished as tested with a 5.07 10g [place] bilaterally. MUSCULOSKELETAL EXAM: - No gross deformities - Muscle strength is 5/5 and active motion is pain-free and symmetrical bilaterally - No pain or crepitation with passive range of motion bilaterally to all major pedal joints Labs/Diagnostic Data Labs Test 07/05/24 12:17 07/05/24 10:45 07/05/24 06:05 07/05/24 04:59 Range/Units POC Glucose 122 H 70-106 mg/dl Vancomycin Level Trough 4.9 L 5-10 ug/mL Blood Gas Specimen Type Arterial Blood Gas Sample Site Right radial Blood Gas Patient Temperature 37.0 Arterial Blood Date Drawn Arterial Blood pH 7.439 7.350-7.450 Arterial Blood Partial Pressure CO2 33.6 L 35.0-48.0 mmHg Arterial Blood Partial Pressure O2 92.9 83.0-108.0 mmHg Arterial Blood HCO3 22.3 21.0-28.0 mmol/L Arterial Blood Oxygen Saturation 97.1 94.0-98.0 % Arterial Blood Base Excess -1.3 -2.0-3.0 mmol/L Arterial Blood Oxyhemoglobin 96.8 94.0-98.0 % Arterial Blood Carboxyhemoglobin 0.0 L 0.5-1.5 % Arterial Blood Methemoglobin 0.3 0.0-1.5 % Serge Test Modified Blood Gas Total Hemoglobin 12.30 L 13.5-17.5 g/dL Blood Gas Set Respiration Rate 20.0 Blood Gas Modality Vent - ac FiO2 % 30.0 Blood Gas Tidal Volume 500.0 Blood Gas PEEP or CPAP 5.0 White Blood Count 7.6 # 4.4-10.8 10^3/uL Red Blood Count 3.92 L 4.5-5.90 10^6/uL Hemoglobin 11.8 #L 13.5-17.5 g/dL Hematocrit 34.6 #L 41.0-53.0 % Mean Corpuscular Volume 88.3 80.0-100.0 fL Mean Corpuscular Hemoglobin 30.2 28.0-32.0 pg Mean Corpuscular Hemoglobin Concent 34.2 32.0-36.0 g/dL Red Cell Distribution Width 15.1 H 11.8-14.3 % Platelet Count 89 L 140-450 10^3/uL Mean Platelet Volume 9.0 6.9-10.8 fL Neutrophils (%) (Auto) 37.0-80.0 % Lymphocytes (%) (Auto) 10.0-50.0 % Monocytes (%) (Auto) 0.0-12.0 % Basophils (%) (Auto) 0.0-2.0 % Neutrophils # (Auto) 1.6-8.6 10 ^3/uL Lymphocytes # (Auto) 0.4-5.4 10 ^3/uL Monocytes # (Auto) 0-1.3 10 ^3/uL Differential Total Cells Counted 100.0 100 Neutrophils % (Manual) 64 37.0-80.0 Band Neutrophils % (Manual) 20 Lymphocytes % (Manual) 8 L 10.0-50.0 Monocytes % (Manual) 4 0-12 Eosinophils % (Manual) 3 0-7 Basophils % (Manual) 0 0.0-2.0 Metamyelocytes % (manual) 0 Myelocytes % (Manual) 1 Promyelocytes % (Manual) 0 Blast Cells % (Manual) 0 Reactive Lymphocytes 0 Platelet Estimate Decreased Sodium Level 145 136-145 mmol/L Potassium Level 3.3 L 3.5-5.1 mmol/L Chloride Level 114 H 98-107 mmol/L Carbon Dioxide Level 25 20-31 mmol/L Anion Gap 6 5-15 Blood Urea Nitrogen 21 # 9-23 mg/dL Creatinine 0.66 L 0.700-1.30 mg/dL Glomerular Filtration Rate Calc 115 >90 mL/min BUN/Creatinine Ratio 31.8 H 10.0-20.0 Serum Glucose 157 H 74-106 mg/dL Calcium Level 7.9 L 8.7-10.4 mg/dL Magnesium Level 2.0 1.6-2.6 mg/dL Total Bilirubin 0.3 0.2-1.0 mg/dL Aspartate Amino Transferase (AST) 127 H 13-40 U/L Alanine Aminotransferase (ALT) 33 7-40 U/L Alkaline Phosphatase 69 46-116 U/L Total Protein 5.0 L 5.7-8.2 g/dL Albumin 2.8 L 3.2-4.8 g/dL Test 07/04/24 10:38 07/04/24 03:42 07/03/24 16:51 07/03/24 10:06 Range/Units Stool Occult Blood Positive Negative Stool Occult Blood Sample #3 Negative Eosinophils (%) (Auto) 2.5 0.0-7.0 % Eosinophils # (Auto) 0.1 0-0.8 10 ^3/uL Basophils # (Auto) 0 0-0.2 10 ^3/uL Nucleated Red Blood Cells 0.0 % Triglycerides Level 253 H < 150 mg/dL Cholesterol Level 117 < 200 mg/dL LDL Cholesterol 38 < 100 mg/dL HDL Cholesterol 42 40-59 mg/dL Lipase 56 H 12-53 U/L Thyroid Stimulating Hormone (TSH) 0.38 L 0.55-4.78 uIU/mL Urine Opiates Screen Neg NEGATIVE Urine Fentanyl Screen Neg NEGATIVE Urine Barbiturates Screen Neg NEGATIVE Urine Phencyclidine Screen Neg NEGATIVE Urine Amphetamines Screen Neg NEGATIVE Urine Benzodiazepines Screen Pos NEGATIVE Urine Cocaine Screen Neg NEGATIVE Urine Cannabinoids Screen Neg NEGATIVE Hemoglobin A1c > 14.0 H <5.7 % A1C Test 07/03/24 07:15 07/03/24 02:03 07/02/24 23:08 07/02/24 21:50 Range/Units Blood Gas Spontaneous Rate 20 Blood Gas Critical Value Read Back Yes Blood Gas Notified Whom Dr. willis Blood Gas Notified Time [id number] Blood Gas Notified By Cook Pressure corrine patton Urine Color Light-yellow Yellow Urine Clarity Clear Clear Urine pH 5.0 5.0-9.0 Urine Specific [place] 1.025 1.001-1.035 Urine Protein Negative Negative Urine Ketones 4+ H Negative Urine Blood Negative Negative /uL Urine Nitrite Negative Negative Urine Bilirubin Negative Negative Urine Urobilinogen Normal Negative mg/dL Urine Leukocyte Esterase Negative Negative /uL Urine RBC <1 0 - 3 /hpf Urine WBC 1 0 - 3 /hpf Urine Squamous Epithelial Cells None seen <5 /hpf Urine Bacteria None seen None Seen /hpf Urine Glucose 4+ H Normal mg/dL Phosphorus Level 4.4 2.4-5.1 mg/dL Test 07/02/24 21:15 07/02/24 20:57 Range/Units Venous Blood pH 7.179 *L 7.320-7.430 Venous Blood pCO2 at Patient Temp 17.8 L 38.0-54.0 mmHg Venous Blood pO2 at Patient Temp 70.7 H 23.0-48.0 mmHg Venous Blood HCO3 6.5 L 22.0-29.0 mmol/L Venous Blood Base Excess -19.6 L -2.0-3.0 mmol/L Blood Gas Liter Flow 2.00 Serum Osmolality 354 H 278-298 mOsm/kg Lactic Acid Level 1.0 0.4-2.0 mmol/L Beta-Hydroxybutyric Acid > 4.500 H < 0.4 mmol/L Microbiology Date/Time Source Procedure Growth Status 07/03/24 20:12 Nose MRSA Screen - Final Complete 07/03/24 19:35 Blood Blood Culture - Preliminary Resulted Assessment ASSESSMENT: Patient is a 49 year old who was seen on the floor for bilateral foot wounds PLAN: - The patients chart was reviewed, clinical findings were discussed with the patient, the etiologies of the conditions were discussed in detail, and a treatment plan was agreed to at this time, with both oral and written instructions provided. - recommend that we get x-rays of bilateral feet with two views to rule out any obvious signs of osteomyelitis - if concern would recommend that we can MRI of either foot depending on the x- rays - debridement was performed of the wounds - potentially a source of the Gram-positive bacteremia - cultures were taken after debridement - dress the wound as described below Primary dressing: Medihoney Secondary Dressing: Gauze, Kerlix Offloading: Dressing Dressing change frequency: change every other day All questions were answered and concerns addressed to the patient's satisfaction. The patient was given the phone number to the clinic and was told how to make contact with the clinic should any concerns or questions arise. Patient understands that if any questions or concerns arise prior to the next ap pointment, we should be contacted immediately. FOLLOW-UP: We will continue to follow while inpatient Problems(with codes): (1) Nausea & vomiting (2) DKA, type 2, not at goal (3) AMS (altered mental status) (4) Electrolyte imbalance (5) Hypotension (6) Diabetic keto-acidosis (7) Acute renal injury (8) Acute respiratory distress (9) Disorientation, unspecified (10) Projectile vomiting Plan discussed with: Patient Date of Service: Jul 05, 2024 Billing Provider: DEDE DE LEÓN DPM Common Visit Codes: [id number] INP/OBS CARE (MOD) DEDE DE LEÓN DPM Jul 05, 2024 14:39
--- NOTE | 2024-07-05 14:40 | DVHNC2 ---
Procedure - Indications: Worsening bilateral foot wounds PROCEDURE: After thorough assessment of the patient's wound(s) it was decided that the debridement was needed. Procedure: Bone debridement, bone tissue excised using #3 Curette, with a total area debrided of sq cm. < 20 sq cm was excised, 100% of the wounds were debrided Description of procedure: Explained risk and benefits of the procedure, patient identification verified, and verbal consent was obtained. The area was cleansed, prepped and anesthetized using 2% topical lidocaine Gel. Hemostasis achieved using pressure. Blood loss was minimal. Patient tolerated the procedure well. DEDE DE LEÓN DPM Jul 05, 2024 14:40
[2024-07-05] MEDS: ACCU-CHEK COMFORT CURVE STRIP VI SCH (18:01)
--- NOTE | 2024-07-05 22:20 | DVHPN2 ---
Progress Note - Dictate Date Seen: Jul 05, 2024 Medical Necessity Reason Pt with a Central, PICC or Fol: Yes The following are medically ne: Jesus Catheter Reason for jesus catheter: Strict I&O Subjective Patient seen and examined at bedside. Sedated, intubated on mechanical ventilator. Overnight events reviewed. vital signs Vital Sign Date Time Temp Pulse Resp B/P (MAP) Pulse Ox O2 Delivery O2 Flow Rate FiO2 07/05/24 22:10 23 99 Mechanical Ventilator+ 30 30 07/05/24 20:15 98.6 68 98/54 (69) 209.5 07/03/24 07:30 0 Total Intake and Output 07/04/24 07/04/24 07/05/24 15:00 23:00 07:00 Intake Total 1598.442 ml 1753.762 ml 1875.243 ml Output Total 1850 ml 1100 ml Balance 1598.442 ml -96.238 ml 775.243 ml medications Current Medications Medications Dose Ordered Sig/Sandra Route Start Time Stop Time Status Last Admin Dose Admin Propofol 100 ml @ 2.181 mls/ hr Q24H IV 07/02/24 22:45 07/05/24 16:26 6.543 MLS/HR Ondansetron HCl 4 mg Q4HP PRN IV 07/02/24 23:15 Nitroglycerin 0.4 mg Q5MINP PRN SL 07/02/24 23:15 Morphine Sulfate 2 mg Q30M PRN IV 07/02/24 23:15 Midazolam HCl 50 ml @ 1 mls/hr Q24H IV 07/03/24 01:15 07/05/24 16:26 5 MLS/HR Vasopressin 20 units/Sodium Chloride 100 ml @ 9 mls/hr Q11H7M IV 07/03/24 10:00 07/05/24 06:49 9 MLS/HR Acetaminophen 650 mg Q6HP PRN GT 07/03/24 12:30 Hold 07/04/24 03:53 650 MG Insulin Human Regular IQ4HR SC 07/03/24 16:00 07/05/24 08:08 2 UNITS Dextrose 50 ml UD PRN IV 07/03/24 12:30 Enoxaparin Sodium 40 mg DAILY SC 07/04/24 10:00 07/04/24 09:52 40 MG Atorvastatin Calcium 40 mg HS GT 07/03/24 22:00 07/05/24 21:18 40 MG Phenylephrine HCl 80 mg/Sodium Chloride 250 ml @ 7.5 mls/hr Q24H IV 07/03/24 15:00 07/03/24 16:00 24.375 MLS/HR Norepinephrine Bitartrate 32 mg/ Sodium Chloride 250 ml @ 0.938 mls/ hr Q24H IV 07/03/24 15:00 07/04/24 10:50 7.5 MLS/HR Acetaminophen 1,000 mg Q8H PRN IV 07/03/24 19:45 Insulin Glargine 10 units BID@0700,2200 SC 07/03/24 22:00 07/05/24 21:31 10 UNITS Sodium Chloride 1,000 ml @ 125 mls/hr Q8H IV 07/03/24 20:45 07/05/24 19:12 125 MLS/HR Vancomycin HCl 0 ml @ 0 mls/hr UD IV 07/03/24 20:45 Purified Water 200 ml Q6HR GT 07/04/24 10:00 07/05/24 18:00 200 ML Pantoprazole Sodium 40 mg BID IV 07/04/24 22:00 07/05/24 21:18 40 MG Cefepime HCl 50 ml @ 12.5 mls/hr Q8H IV 07/04/24 18:00 07/05/24 18:00 12.5 MLS/HR Vancomycin HCl 200 ml @ 200 mls/hr Q12H IV 07/05/24 12:00 07/05/24 12:11 200 MLS/HR Diagnostic Test (Pha) 1 strip Q6HR 07/05/24 18:00 07/05/24 18:01 1 STRIP objective Gen.: Patient lying in bed in medical ICU. Sedated, intubated on mechanical ventilator. Head: Normocephalic, atraumatic. Eyes: PERRLA. Ears: Normal external anatomy. Throat: Endotracheal tube and orogastric tube in place. Neck: Supple, trachea midline. Chest: Transmitted breath sounds bilaterally. Decreased air entry bilaterally. No wheezing. Bibasilar crackles. Cardiovascular: Positive S1, positive S2. Regular rate and rhythm. Abdomen: Positive bowel sounds in all 4 quadrants. Soft, nontender, nondistended. : Jesus in place. Normal external genitalia. Rectal: Deferred. Skin: Warm, dry. Intact. Extremities: 2+ radial pulses bilaterally. No lower extremity edema. Neuro: Sedated. laboratory and microbiology Laboratory Tests 07/05/24 04:59 Test 07/05/24 04:59 Range/Units Serum Glucose 157 H 74-106 mg/dL Assessment/Plan Impression: Acute hypoxic respiratory failure On mechanical ventilator Diabetic ketoacidosis Acute kidney injury Cachexia with a BMI of 1816.8 Events Vent support On assist-control mode with a respiratory rate of 20, tidal volume 500, PEEP of 5, FiO2 30% On pressors for hemodynamic support. On Levophed 2 mcg/min Titrate to keep MAP above 65 mmHg/SBP above 90 mmHg. IV fluid hydration Taper sedation Plan for CPAP in the AM with PS 8, PEEP 5. Creatinine trending down Monitor sodium Free water for hypernatremia CXR reviewed, no acute opacities. ABG reviewed, compensated Propofol, Versed for sedation Continue abx Blood cx - GPC in clusters F/u sensitivities Monitor Hgb - FOBT positive Protonix BID for GI prophylaxis Rest of plan as noted below Plan: s/p intubation on mechanical ventilator CT head demonstrates no acute intracranial hemorrhage. Partial CXR image and report reviewed. No acute opacities. Devices in place. ABG reviewed. Compensated. Metabolic Acidosis with respiratory compensation. On assist-control mode with a respiratory rate of 20, tidal volume 500, PEEP of 5, FiO2 30% Titrate FIO2 to keep O2 saturation above 92%. VAP bundle Daily ABG and CXR while intubated. Sedate for ventilatory synchrony, on Versed On pressors for hemodynamic support. Titrate to keep MAP above 65 mmHg/SBP above 90 mmHg. Continue antibiotics. F/u cultures. Monitor renal function due to Acute kidney injury. Monitor electrolytes. Supplement as necessary. IVF NS at 100mL/hour Insulin drip Accucheks, ISS. GI/DVT prophylaxis. Condition: Critical Prognosis: Poor given multiple comorbidities. Rest of plan per hospitalist and other consultants. A total of 35 minutes of critical care time was spent reviewing the patient record, examining the patient, making a diagnostic and therapeutic plan, discussing this plan with the medical personnel, following up on diagnostic studies and following the patient for clinical stability excluding any and all procedures. At least 50% of this time was spent in direct, [id number] contact. Thank you IZAIAH Cardona for allowing me to participate in this patient's care. Further recommendations will depend on patient's clinical course. Please do not hesitate to contact me if you have any questions or concerns. This medical document was created using an electronic medical record system with [employer] system. Although this document has been carefully reviewed, there may still be some phonetic and typographical errors. These areas are purely typographical due to imperfections of the software programs, and do not reflect any compromise in the patient's medical care. Dietary Evaluation Review Comments: 1) If GI is preferred route consider Nepro @ 45 ml/hr goal rate as tolerated 2) If pt remains NPO >7 days consider TPN to meet at least 75% of estimated needs 3) Advance pt diet when medically feasible to a CCHO 60g, Renal diet modified per LUMPIA WRAPPER MAKER recommendations 4) Continue current plan of care Expected Outcomes/Goals: 1. Pt will consume >75% of estimated needs within 2-3 days Plan discussed with: Other (LUKE Miranda) NADER ALLEN MD Jul 05, 2024 22:20
[2024-07-06] VITALS (99 sets, daily range): BP systolic 85–126; BP diastolic 47–79; PULSE 67–81; RESP 20–28; TEMP 97.9–99.9; O2SAT 95–100
[2024-07-06 03:44] LABS: Basophils # (auto) 0 10 ^3/uL (0-0.2); Basophils % (auto) 0.2 % (0.0-2.0); Eosinophils # (auto) 0.1 10 ^3/uL (0-0.8); Eosinophils % (auto) 0.7 % (0.0-7.0); Hematocrit 34.1 % (41.0-53.0); Hemoglobin 11.8 g/dL (13.5-17.5); Lymphocytes # (auto) 0.4 10 ^3/uL (0.4-5.4); Lymphocytes % (auto) 5.3 % (10.0-50.0); Mean Corpuscular Hemoglobin 30.6 pg (28.0-32.0); Mean Corpuscular Hgb Conc. 34.6 g/dL (32.0-36.0); Mean Corpuscular Volume 88.5 fL (80.0-100.0); Monocytes # (auto) 0.6 10 ^3/uL (0-1.3); Monocytes % (auto) 7.3 % (0.0-12.0); Neutrophils # (auto) 7.2 10 ^3/uL (1.6-8.6); Neutrophils % (auto) 86.5 % (37.0-80.0); Platelet Count (auto) 111 10^3/uL (140-450); Red Blood Cells 3.85 10^6/uL (4.5-5.90); White Blood Cell 8.3 10^3/uL (4.4-10.8)
[2024-07-06] MEDS ORDERED: DEXTROSE (50%) 50ML SYRG IV PRN (03:45)
[2024-07-06 04:00] LABS: Alanine Aminotransferase 28 U/L (7-40); Albumin 2.7 g/dL (3.2-4.8); Alkaline Phosphatase 76 U/L (46-116); Anion Gap 7 (5-15); Aspartate Aminotransferase 79 U/L (13-40); BUN/Creatinine Ratio 19.6 (10.0-20.0); Blood Urea Nitrogen 11 mg/dL (9-23); Calcium 8.3 mg/dL (8.7-10.4); Carbon Dioxide 26 mmol/L (20-31); Chloride 121 mmol/L (98-107); Glucose 132 mg/dL (74-106); Magnesium 2.3 mg/dL (1.6-2.6)
[2024-07-06 04:01] LABS: Bilirubin, Total 0.3 mg/dL (0.2-1.0); Total Protein 5.1 g/dL (5.7-8.2)
[2024-07-06 04:13] LABS: Sodium 154 mmol/L (136-145)
--- NOTE | 2024-07-06 04:50 | DVH ---
CHEST RADIOGRAPH Indication:OSTEO Technique: Single frontal view of the chest was obtained COMPARISON: XY CHEST PORTABLE on DOS: 07/05/24 FINDINGS: Lines and Tubes: Endotracheal tube and enteric catheter in satisfactory position. Lungs: Mild increased interstitial prominence. Pleura: No effusion. No pneumothorax. Cardiomediastinal contours: Unremarkable Bones: Unremarkable IMPRESSION: Lines and tubes in satisfactory position. No significant interval change.
[2024-07-06] MEDS: InsuLIN REG 1unit/0.01ml Soln (100units/ml) SC SCH (05:27)
[2024-07-06] MEDS: ACCU-CHEK COMFORT CURVE STRIP VI SCH (05:27)
[2024-07-06 07:34] LABS: Base Excess 0.8 mmol/L (-2.0-3.0)
[2024-07-06] MEDS: POTASSIUM CHL 20MEQ/100ML 100 ML IV SCH (09:53)
--- NOTE | 2024-07-06 10:46 | DVH ---
CLINICAL INDICATION: RULE OUT OSTEOMYLITIS TECHNIQUE: XY L FOOT 2 VIEW XRAY Comparison: None FINDINGS/IMPRESSION: There is no evidence of acute fracture or dislocation. There is no obvious cortical destruction or fr agmentation. Joint spaces are maintained. The alignment is anatomical. HS:Y
--- NOTE | 2024-07-06 11:02 | DVH ---
CLINICAL INDICATION: OSTEO TECHNIQUE: XY R FOOT 2 VIEW XRAY Comparison: None FINDINGS/IMPRESSION: There is no evidence of acute fracture or dislocation. Soft tissues are unremarkable. Degenerative spurring of the calcaneus.
--- NOTE | 2024-07-06 12:17 | DVHPN2 ---
Progress Note Date Seen: Jul 06, 2024 Medical Necessity Reason Pt with a Central, PICC or Fol: Yes The following are medically ne: Jesus Catheter Reason for jesus catheter: Strict I&O Subjective Review of Systems: RESPIRATORY:Abnormal Other Systems: Patient seen and examined by myself today in follow-up Patient remained intubated on ventilator Objective vital signs Vital Sign Date Time Temp Pulse Resp B/P (MAP) Pulse Ox O2 Delivery O2 Flow Rate FiO2 07/06/24 11:52 81 24 119/67 (84) 97 30 07/06/24 06:45 98.8 209.8 07/06/24 06:00 Mechanical Ventilator+ Total Intake and Output 07/05/24 07/05/24 07/06/24 15:00 23:00 07:00 Intake Total 1360.344 ml 1548.596 ml 1538.305 ml Output Total 3250 ml 1800 ml Balance 1360.344 ml -1701.404 ml -261.695 ml medications Current Medications Medications Dose Ordered Sig/Snadra Route Start Time Stop Time Status Last Admin Dose Admin Propofol 100 ml @ 2.181 mls/ hr Q24H IV 07/02/24 22:45 07/06/24 03:35 6.543 MLS/HR Ondansetron HCl 4 mg Q4HP PRN IV 07/02/24 23:15 Nitroglycerin 0.4 mg Q5MINP PRN SL 07/02/24 23:15 Morphine Sulfate 2 mg Q30M PRN IV 07/02/24 23:15 Midazolam HCl 50 ml @ 1 mls/hr Q24H IV 07/03/24 01:15 07/06/24 03:19 4 MLS/HR Vasopressin 20 units/Sodium Chloride 100 ml @ 9 mls/hr Q11H7M IV 07/03/24 10:00 07/05/24 06:49 9 MLS/HR Acetaminophen 650 mg Q6HP PRN GT 07/03/24 12:30 Hold 07/04/24 03:53 650 MG Enoxaparin Sodium 40 mg DAILY SC 07/04/24 10:00 07/06/24 09:54 40 MG Atorvastatin Calcium 40 mg HS GT 07/03/24 22:00 07/05/24 21:18 40 MG Phenylephrine HCl 80 mg/Sodium Chloride 250 ml @ 7.5 mls/hr Q24H IV 07/03/24 15:00 07/03/24 16:00 24.375 MLS/HR Norepinephrine Bitartrate 32 mg/ Sodium Chloride 250 ml @ 0.938 mls/ hr Q24H IV 07/03/24 15:00 07/06/24 05:36 0.938 MLS/HR Acetaminophen 1,000 mg Q8H PRN IV 07/03/24 19:45 Insulin Glargine 10 units BID@0700,2200 SC 07/03/24 22:00 07/06/24 06:22 10 UNITS Sodium Chloride 1,000 ml @ 125 mls/hr Q8H IV 07/03/24 20:45 07/06/24 03:21 125 MLS/HR Vancomycin HCl 0 ml @ 0 mls/hr UD IV 07/03/24 20:45 Purified Water 200 ml Q6HR GT 07/04/24 10:00 07/06/24 11:58 200 ML Pantoprazole Sodium 40 mg BID IV 07/04/24 22:00 07/06/24 09:53 40 MG Cefepime HCl 50 ml @ 12.5 mls/hr Q8H IV 07/04/24 18:00 07/06/24 09:53 12.5 MLS/HR Vancomycin HCl 200 ml @ 200 mls/hr Q12H IV 07/05/24 12:00 07/06/24 12:01 200 MLS/HR Diagnostic Test (Pha) 1 strip Q6HR 07/06/24 06:00 07/06/24 05:27 1 STRIP Insulin Human Regular Q6HR SC 07/06/24 06:00 Dextrose 50 ml UD PRN IV 07/06/24 03:45 Potassium Chloride 100 ml @ 50 mls/hr Q2H IV 07/06/24 09:15 07/06/24 15:14 07/06/24 11:58 50 MLS/HR Examination: LUNGS:Normal, CVS:Normal, MSK:Normal laboratory and microbiology Laboratory Tests 07/06/24 03:00 Test 07/06/24 03:00 Range/Units Serum Glucose 132 H 74-106 mg/dL Microbiology Date/Time Source Procedure Growth Status 07/05/24 14:26 Foot Right Gram Stain Pending Resulted 07/05/24 14:26 Foot Right Wound Culture - Preliminary Resulted 07/03/24 19:35 Blood Blood Culture - Preliminary Resulted 07/03/24 16:51 Urine - Jesus [place] Urine Culture - Preliminary Resulted 07/02/24 23:25 Sputum Gram Stain - Final Resulted 07/02/24 23:25 Sputum Respiratory Culture - Preliminary Resulted Problem List/Assessment/Plan Problem List/Assessment/Plan Acute kidney injury hemodynamic mediated etiology Acute respiratory failure, intubated on ventilator Diabetic ketoacidosis Uncontrolled diabetes mellitus Hypernatremia due to dehydration Gram-positive bacteremia Hypoalbuminemia Hypokalemia Hypophosphatemia Recommendations Kidney function is improving Increased urine output K-Phos IV piggyback I agree with IV hypotonic fluid hydration Insulin sliding scale IV antibiotics We will continue to monitor Plan discussed with: Other (Nurse) My Orders My Orders Orders - NAKITA SIFUENTES MD Procedure Category Date Status Time Potassium Phosphate PHA 07/06/24 Transmitted 12:15 Dietary Evaluation Review Comments: 1) If GI is preferred route consider Nepro @ 45 ml/hr goal rate as tolerated 2) If pt remains NPO >7 days consider TPN to meet at least 75% of estimated needs 3) Advance pt diet when medically feasible to a CCHO 60g, Renal diet modified per ASSISTANT PROFESSOR OF BIOLOGY recommendations 4) Continue current plan of care Expected Outcomes/Goals: 1. Pt will consume >75% of estimated needs within 2-3 days NAKITA SIFUENTES MD Jul 06, 2024 12:17
--- NOTE | 2024-07-06 14:13 | DVHPN2 ---
Subjective Better BP is better On small dose Levophed Blood Cx: + Changes from previous H/P or p: Changes Eyes: No Pain, No Vision change, No Conjunctivae inflammation, No Eyelid inflammation, No Other, No Redness ENT: No Ear pain, No Ear discharge, No Nose pain, No Nose discharge, No Nose congestion, No Mouth pain, No Mouth swelling, No Throat pain, No Throat swelling, No Other Cardiovascular: No Chest Pain, No Palpitations, No Orthopnea, No Paroxysmal Noc. Dyspnea, No Edema, No Lt Headedness, No Other Respiratory: No Cough, No Dry, No Shortness of breath, No SOB with excertion, No Wheezing, No Hemoptysis, No Pleuritic Pain, No Sputum, No Other Gastrointestinal: No Nausea, No Vomiting, No Abdominal Pain, No Diarrhea, No Constipation, No Melena, No Hematochezia, No Other Genitourinary: No Dysuria, No Frequency, No Incontinence, No Hematuria, No Retention, No Other Musculoskeletal: No other, No neck pain, No shoulder pain, No arm pain, No back pain, No hand pain, No leg pain, No foot pain Skin: No Rash, No Lesions, No Jaundice, No Bruising, No Other Objective Vitals Vital Signs Date Time Temp Pulse Resp B/P (MAP) Pulse Ox O2 Delivery O2 Flow Rate FiO2 07/06/24 12:38 99.7 80 24 116/65 (82) 98 211.5 07/06/24 12:00 30 07/06/24 12:00 Mechanical Ventilator+ Intake/Output Intake and Output 07/06/24 07:00 Intake Total 4447.245 ml Output Total 5050 ml Balance -602.755 ml Intake Oral 400 ml IV Total 3647.245 ml Tube Feeding 400 ml Output Urine Total 5050 ml General Appearance: Other (intubated and sedated) Lungs: Clear to auscultation, Normal air movement Cardiovascular: Regular rate, Normal S1 Abdomen: Normal bowel sounds, Soft, No tenderness Extremities: No edema Medications Current Medications Medications Dose Ordered Sig/Sandra Route Start Time Stop Time Status Last Admin Dose Admin Propofol 100 ml @ 2.181 mls/ hr Q24H IV 07/02/24 22:45 07/06/24 03:35 6.543 MLS/HR Ondansetron HCl 4 mg Q4HP PRN IV 07/02/24 23:15 Nitroglycerin 0.4 mg Q5MINP PRN SL 07/02/24 23:15 Morphine Sulfate 2 mg Q30M PRN IV 07/02/24 23:15 Midazolam HCl 50 ml @ 1 mls/hr Q24H IV 07/03/24 01:15 07/06/24 03:19 4 MLS/HR Vasopressin 20 units/Sodium Chloride 100 ml @ 9 mls/hr Q11H7M IV 07/03/24 10:00 07/05/24 06:49 9 MLS/HR Acetaminophen 650 mg Q6HP PRN GT 07/03/24 12:30 Hold 07/04/24 03:53 650 MG Enoxaparin Sodium 40 mg DAILY SC 07/04/24 10:00 07/06/24 09:54 40 MG Atorvastatin Calcium 40 mg HS GT 07/03/24 22:00 07/05/24 21:18 40 MG Phenylephrine HCl 80 mg/Sodium Chloride 250 ml @ 7.5 mls/hr Q24H IV 07/03/24 15:00 07/03/24 16:00 24.375 MLS/HR Norepinephrine Bitartrate 32 mg/ Sodium Chloride 250 ml @ 0.938 mls/ hr Q24H IV 07/03/24 15:00 07/06/24 05:36 0.938 MLS/HR Acetaminophen 1,000 mg Q8H PRN IV 07/03/24 19:45 Insulin Glargine 10 units BID@0700,2200 SC 07/03/24 22:00 07/06/24 06:22 10 UNITS Sodium Chloride 1,000 ml @ 125 mls/hr Q8H IV 07/03/24 20:45 07/06/24 03:21 125 MLS/HR Vancomycin HCl 0 ml @ 0 mls/hr UD IV 07/03/24 20:45 Purified Water 200 ml Q6HR GT 07/04/24 10:00 07/06/24 11:58 200 ML Pantoprazole Sodium 40 mg BID IV 07/04/24 22:00 07/06/24 09:53 40 MG Cefepime HCl 50 ml @ 12.5 mls/hr Q8H IV 07/04/24 18:00 07/06/24 09:53 12.5 MLS/HR Vancomycin HCl 200 ml @ 200 mls/hr Q12H IV 07/05/24 12:00 07/06/24 12:01 200 MLS/HR Diagnostic Test (Pha) 1 strip Q6HR 07/06/24 06:00 07/06/24 12:45 1 STRIP Insulin Human Regular Q6HR SC 07/06/24 06:00 07/06/24 12:45 2 UNITS Dextrose 50 ml UD PRN IV 07/06/24 03:45 Potassium Chloride 100 ml @ 50 mls/hr Q2H IV 07/06/24 09:15 07/06/24 15:14 07/06/24 13:05 50 MLS/HR Laboratory Results Laboratory Tests 07/06/24 03:00 Chemistry Test 07/06/24 03:00 Albumin 2.7 g/dL (3.2-4.8) L Calcium Level 8.3 mg/dL (8.7-10.4) L Magnesium Level 2.3 mg/dL (1.6-2.6) Phosphorus Level 1.6 mg/dL (2.4-5.1) L Total Protein 5.1 g/dL (5.7-8.2) L LFT Test 07/06/24 03:00 Alanine Aminotransferase (ALT) 28 U/L (7-40) Alkaline Phosphatase 76 U/L (46-116) Aspartate Amino Transferase (AST) 79 U/L (13-40) H Total Bilirubin 0.3 mg/dL (0.2-1.0) Urinalysis Test 07/02/24 23:08 Urine Color Light-yellow (Yellow) Urine Clarity Clear (Clear) Urine pH 5.0 (5.0-9.0) Urine Specific [place] 1.025 (1.001-1.035) Urine Protein Negative (Negative) Urine Ketones 4+ (Negative) H Urine Blood Negative /uL (Negative) Urine Nitrite Negative (Negative) Urine Bilirubin Negative (Negative) Urine Urobilinogen Normal mg/dL (Negative) Urine Leukocyte Esterase Negative /uL (Negative) Urine RBC <1 /hpf (0 - 3) Urine WBC 1 /hpf (0 - 3) Urine Squamous Epithelial Cells None seen /hpf (<5) Urine Bacteria None seen /hpf (None Seen) Urine Glucose 4+ mg/dL (Normal) H Blood Gas Results Test 07/06/24 07:00 Arterial Blood pH 7.439 (7.350-7.450) FiO2 % 30.0 Microbiology Microbiology Date/Time Source Procedure Growth Status 07/05/24 14:26 Foot Right Gram Stain Pending Resulted 07/05/24 14:26 Foot Right Wound Culture - Preliminary Resulted 07/03/24 19:35 Blood Blood Culture - Preliminary Resulted 07/03/24 16:51 Urine - [place] Urine Culture - Preliminary Resulted 07/02/24 23:25 Sputum Gram Stain - Final Complete 07/02/24 23:25 Respiratory Culture - Final Staphylococcus aureus Klebsiella pneumoniae Citrobacter youngae Complete Assessment/Plan Assessment/Plan DKA, resolved DM, uncontrolled Acute hypoxic respiratory failure s/p intubation on mechanical ventilator ZOYA Sepsis w septic shock Hypernatremia Fever B feet ulcers PLAN: 07/03/2024: IV fluids, change to 1/2 NS Nephrology consult Vasopressors as needed Blood, urine and sputum cultures IV antibiotics: Empiric, change to Cefepime and Vanco Sedation as needed Start Lantus Full code Discussed with family at the bedside Advance directives discussed with family x 20 minutes 07/04/2024: Diarrhea: Check the stools for C diff ZOYA: Continue IV fluids Hypernatremia: Start free water Sepsis with septic shock: Continue cefepime and vancomycin Hypotension: Vasopressors Uterine cultures and respiratory cultures are Discussed with the family at the bedside Lantus 10 units twice a day Accu-Cheks q.4 hours 07/05/24: Continue IV fluids 1/2 NS Vancomycin + Cefepime Free water Minimize sedation Taper down Levophed Podiatry consult MRSA screen: Negative Lantus Discussed with at the bedside 07/06/24: Hypernatremia: Repeat labs Hypokalemia: Replace Vancomycin and Cefepime Continue free water Plan discussed with: Other My Orders Orders - MEHRAN GUERRERO MD Procedure Category Date Status Time Apply Barrier Cream ELI 07/05/24 In Process 14:00 * Dietary Consult CONS 07/05/24 Transmitted 14:00 Apply: ELI 07/05/24 In Process 14:00 R Foot 3 View Xray XY 07/06/24 Resulted 00:31 Glucose Blood PHA 07/06/24 In Process (Accu-Chek Comfort 06:00 Insulin R (Human) PHA 07/06/24 In Process (Insulin R) 06:00 Dextrose 50% Syringe PHA 07/06/24 In Process 03:45 Basic Metabolic Panel LAB 07/07/24 Verified 04:00 Vancomycin Per ELI 07/07/24 In Process Pharmacy Protoc 00:00 R Foot 2 View Xray XY 07/06/24 Resulted 06:38 Date of Service: Jul 06, 2024 Billing Provider: MEHRAN GUERRERO MD Common Visit Codes: [id number] CARE 30-74 MIN MEHRAN GUERRERO MD Jul 06, 2024 14:13
[2024-07-06 15:06] LABS: Base Excess -1.5 mmol/L (-2.0-3.0)
[2024-07-06 18:03] LABS: Chloride 119 mmol/L (98-107); Potassium 3.6 mmol/L (3.5-5.1); Sodium 153 mmol/L (136-145)
[2024-07-06 18:04] LABS: Anion Gap 9 (5-15); Calcium 8.5 mg/dL (8.7-10.4); Carbon Dioxide 25 mmol/L (20-31)
[2024-07-06 18:09] LABS: BUN/Creatinine Ratio 20.6 (10.0-20.0); Blood Urea Nitrogen 13 mg/dL (9-23); Glucose 141 mg/dL (74-106)
[2024-07-06] MEDS: POTASSIUM PHOSPHATE 44 MEQ in D5W 5% 250 ML IV ONE (18:41)
--- NOTE | 2024-07-06 19:27 | DVHPN2 ---
Progress Note - Dictate Date Seen: Jul 06, 2024 Medical Necessity Reason Pt with a Central, PICC or Fol: Yes The following are medically ne: Jesus Catheter Reason for jesus catheter: Strict I&O Subjective Patient seen and examined at bedside. Sedated, intubated on mechanical ventilator. Overnight events reviewed. vital signs Vital Sign Date Time Temp Pulse Resp B/P (MAP) Pulse Ox O2 Delivery O2 Flow Rate FiO2 07/06/24 18:45 99.0 76 25 105/60 (75) 97 210.2 07/06/24 18:30 30 07/06/24 17:52 Mechanical Ventilator+ Total Intake and Output 07/05/24 07/05/24 07/06/24 15:00 23:00 07:00 Intake Total 1360.344 ml 1548.596 ml 1538.305 ml Output Total 3250 ml 1800 ml Balance 1360.344 ml -1701.404 ml -261.695 ml medications Current Medications Medications Dose Ordered Sig/Sandra Route Start Time Stop Time Status Last Admin Dose Admin Propofol 100 ml @ 2.181 mls/ hr Q24H IV 07/02/24 22:45 07/06/24 03:35 6.543 MLS/HR Ondansetron HCl 4 mg Q4HP PRN IV 07/02/24 23:15 Nitroglycerin 0.4 mg Q5MINP PRN SL 07/02/24 23:15 Morphine Sulfate 2 mg Q30M PRN IV 07/02/24 23:15 Midazolam HCl 50 ml @ 1 mls/hr Q24H IV 07/03/24 01:15 07/06/24 03:19 4 MLS/HR Vasopressin 20 units/Sodium Chloride 100 ml @ 9 mls/hr Q11H7M IV 07/03/24 10:00 07/05/24 06:49 9 MLS/HR Acetaminophen 650 mg Q6HP PRN GT 07/03/24 12:30 Hold 07/04/24 03:53 650 MG Enoxaparin Sodium 40 mg DAILY SC 07/04/24 10:00 07/06/24 09:54 40 MG Atorvastatin Calcium 40 mg HS GT 07/03/24 22:00 07/05/24 21:18 40 MG Phenylephrine HCl 80 mg/Sodium Chloride 250 ml @ 7.5 mls/hr Q24H IV 07/03/24 15:00 07/03/24 16:00 24.375 MLS/HR Norepinephrine Bitartrate 32 mg/ Sodium Chloride 250 ml @ 0.938 mls/ hr Q24H IV 07/03/24 15:00 07/06/24 05:36 0.938 MLS/HR Acetaminophen 1,000 mg Q8H PRN IV 07/03/24 19:45 Insulin Glargine 10 units BID@0700,2200 SC 07/03/24 22:00 07/06/24 06:22 10 UNITS Sodium Chloride 1,000 ml @ 125 mls/hr Q8H IV 07/03/24 20:45 07/06/24 16:20 125 MLS/HR Vancomycin HCl 0 ml @ 0 mls/hr UD IV 07/03/24 20:45 Purified Water 200 ml Q6HR GT 07/04/24 10:00 07/06/24 17:15 200 ML Pantoprazole Sodium 40 mg BID IV 07/04/24 22:00 07/06/24 09:53 40 MG Cefepime HCl 50 ml @ 12.5 mls/hr Q8H IV 07/04/24 18:00 07/06/24 17:15 12.5 MLS/HR Vancomycin HCl 200 ml @ 200 mls/hr Q12H IV 07/05/24 12:00 07/06/24 12:01 200 MLS/HR Diagnostic Test (Pha) 1 strip Q6HR 07/06/24 06:00 07/06/24 17:45 1 STRIP Insulin Human Regular Q6HR SC 07/06/24 06:00 07/06/24 17:42 2 UNITS Dextrose 50 ml UD PRN IV 07/06/24 03:45 objective Gen.: Patient lying in bed in medical ICU. Sedated, intubated on mechanical ventilator. Head: Normocephalic, atraumatic. Eyes: PERRLA. Ears: Normal external anatomy. Throat: Endotracheal tube and orogastric tube in place. Neck: Supple, trachea midline. Chest: Transmitted breath sounds bilaterally. Decreased air entry bilaterally. No wheezing. Bibasilar crackles. Cardiovascular: Positive S1, positive S2. Regular rate and rhythm. Abdomen: Positive bowel sounds in all 4 quadrants. Soft, nontender, nondistended. : Jesus in place. Normal external genitalia. Rectal: Deferred. Skin: Warm, dry. Intact. Extremities: 2+ radial pulses bilaterally. No lower extremity edema. Neuro: Sedated. laboratory and microbiology Laboratory Tests 07/06/24 17:20 07/06/24 03:00 Test 07/06/24 17:20 Range/Units Serum Glucose 141 H 74-106 mg/dL Assessment/Plan Impression: Acute hypoxic respiratory failure On mechanical ventilator Diabetic ketoacidosis Acute kidney injury Cachexia with a BMI of 1816.8 Events Respiratory Patient was on assisted control mode of ventilation with following settings Frequency 20, Tidal volume 500, Peep 5, FiO2 30%. Patient has been put on CPAP weaning trial with following settings- PS 10 Cm H20. FiO2 30% .tolerating well MRSA screen negative Chest x-ray -endotracheal tube and catheters are in satisfactory position, no pneumothorax ,cardiomediastinal contour normal I/O Jesus's catheter is in place with total urine output of 1800 mL overnight. Cardiac- blood pressure is 95 / 55, SpO2 96%, heart rate 77/minute, afebrile Maintaining vitals on norepinephrine at 0.93 mL/hour, phenylephrine and vasopressin have been held Titrate to keep MAP above 65 IV fluid- 0.45 % Normal saline at 125 mL/hour Hematology Hemoglobin 11.8 g% today, normocytic normochromic anemia. Baseline hemoglobin is 16.7 Stool occult blood positive. WBC 8.3 Right foot performed showed moderate growth of Staph aureus. Currently on vancomycin and cefepime Metabolic ABG-pH 7.43, PaCO2 37.4, HC03 24.8 Serum -Sodium 154, K-3, chloride 121- on KCL infusion had 50 mL/hr Creatinine 0.56 ,BUN 11--mostly stable Monitor serial creatinine levels. Continue IV fluids. Phosphorus 1.6, serum calcium 8.3 Slighty disease liver enzyme with AST 79 Endocrine Blood sugar- 119 , on glargine 10 units twice daily in addition to a sliding scale. Neuro Patient was on AC mode of ventilation on midazolam 4 mL per hour, had propofol 6.53/hour. now the CPAP trial has been given, currently off sedation Tolerating well Rest of plan as noted below Plan: s/p intubation on mechanical ventilator CT head demonstrates no acute intracranial hemorrhage. Partial CXR image and report reviewed. No acute opacities. Devices in place. ABG reviewed. Compensated. Metabolic Acidosis with respiratory compensation. On assist-control mode with a respiratory rate of 20, tidal volume 500, PEEP of 5, FiO2 30% Titrate FIO2 to keep O2 saturation above 92%. VAP bundle Daily ABG and CXR while intubated. Sedate for ventilatory synchrony, on Versed On pressors for hemodynamic support. Titrate to keep MAP above 65 mmHg/SBP above 90 mmHg. Continue antibiotics. F/u cultures. Monitor renal function due to Acute kidney injury. Monitor electrolytes. Supplement as necessary. IVF NS at 100mL/hour Insulin drip Accucheks, ISS. GI/DVT prophylaxis. Condition: Critical Prognosis: Poor given multiple comorbidities. Rest of plan per hospitalist and other consultants. A total of 35 minutes of critical care time was spent reviewing the patient record, examining the patient, making a diagnostic and therapeutic plan, discussing this plan with the medical personnel, following up on diagnostic studies and following the patient for clinical stability excluding any and all procedures. At least 50% of this time was spent in direct, [id number] contact. Thank you IZAIAH Cardona for allowing me to participate in this patient's care. Further recommendations will depend on patient's clinical course. Please do not hesitate to contact me if you have any questions or concerns. This medical document was created using an electronic medical record system with [employer] dictation system. Although this document has been carefully reviewed, there may still be some phonetic and typographical errors. These areas are purely typographical due to imperfections of the software programs, and do not reflect any compromise in the patient's medical care. Dietary Evaluation Review Comments: 1) If GI is preferred route consider Nepro @ 45 ml/hr goal rate as tolerated 2) If pt remains NPO >7 days consider TPN to meet at least 75% of estimated needs 3) Advance pt diet when medically feasible to a CCHO 60g, Renal diet modified per CLIENT SUCCESS DIRECTOR recommendations 4) Continue current plan of care Expected Outcomes/Goals: 1. Pt will consume >75% of estimated needs within 2-3 days Plan discussed with: Other (RN Renetta, RT MD Jenise) Critical Care Time(min): 35 NADER ALLEN MD Jul 06, 2024 19:27
[2024-07-07] VITALS (105 sets, daily range): BP systolic 84–119; BP diastolic 53–75; PULSE 72–84; RESP 17–28; TEMP 97.5–100.2; O2SAT 94–100
[2024-07-07 03:57] LABS: Basophils # (auto) 0 10 ^3/uL (0-0.2); Basophils % (auto) 0.1 % (0.0-2.0); Eosinophils # (auto) 0 10 ^3/uL (0-0.8); Eosinophils % (auto) 0.2 % (0.0-7.0); Hematocrit 38.4 % (41.0-53.0); Lymphocytes # (auto) 0.7 10 ^3/uL (0.4-5.4); Lymphocytes % (auto) 6.8 % (10.0-50.0); Mean Corpuscular Hgb Conc. 33.8 g/dL (32.0-36.0); Mean Corpuscular Volume 88.8 fL (80.0-100.0); Monocytes # (auto) 1.6 10 ^3/uL (0-1.3); Monocytes % (auto) 15.5 % (0.0-12.0); Neutrophils # (auto) 7.8 10 ^3/uL (1.6-8.6); Neutrophils % (auto) 77.4 % (37.0-80.0); Nucleated Red Blood Cells % 0.2 %; Platelet Count (auto) 170 10^3/uL (140-450); Red Blood Cells 4.33 10^6/uL (4.5-5.90); Red Cell Distribution Width 15.4 % (11.8-14.3)
[2024-07-07 04:19] LABS: Alanine Aminotransferase 25 U/L (7-40); Alkaline Phosphatase 100 U/L (46-116); Anion Gap 10 (5-15); Aspartate Aminotransferase 43 U/L (13-40); BUN/Creatinine Ratio 20.7 (10.0-20.0); Blood Urea Nitrogen 12 mg/dL (9-23); Calcium 8.5 mg/dL (8.7-10.4); Carbon Dioxide 24 mmol/L (20-31); Chloride 118 mmol/L (98-107); Glucose 140 mg/dL (74-106); Magnesium 2.3 mg/dL (1.6-2.6); Potassium 3.5 mmol/L (3.5-5.1); Sodium 152 mmol/L (136-145)
[2024-07-07 04:20] LABS: Bilirubin, Total 0.4 mg/dL (0.2-1.0); Total Protein 5.7 g/dL (5.7-8.2)
[2024-07-07 06:31] LABS: Base Excess -1.5 mmol/L (-2.0-3.0)
--- NOTE | 2024-07-07 09:21 | DVH ---
EXAM: XY CHEST XRAY 1 VIEW Indication:INTUBATED Technique: Single frontal view of the chest was obtained Comparison: XY CHEST PORTABLE on DOS: 07/05/24, XY CHEST PORTABLE on DOS: 07/04/24, XY CHEST XRAY 1 V IEW on DOS: 07/04/24, XY CHEST PORTABLE on DOS: 07/02/24, XY CHEST PORTABLE on DOS: 07/02/24, XY CHES T PORTABLE on DOS: 07/05/24 FINDINGS: Lines and Tubes: Endotracheal tube and enteric catheter in satisfactory position. Lungs: Mild increased interstitial prominence. Pleura: No effusion. No pneumothorax. Cardiomediastinal contours: Unremarkable Bones: Unremarkable IMPRESSION: Lines and tubes in satisfactory position. No significant interval change.
[2024-07-07] MEDS: POTASSIUM CHL 20MEQ/100ML 100 ML IV ONE (09:41)
--- NOTE | 2024-07-07 10:03 | DVHPN2 ---
Subjective Waking up very minimally compared to yesterday Off sedation He is on low-dose Levophed Sodium is 152 Potassium is 3.5 Changes from previous H/P or p: Changes Eyes: No Pain, No Vision change, No Conjunctivae inflammation, No Eyelid inflammation, No Other, No Redness ENT: No Ear pain, No Ear discharge, No Nose pain, No Nose discharge, No Nose congestion, No Mouth pain, No Mouth swelling, No Throat pain, No Throat swelling, No Other Cardiovascular: No Chest Pain, No Palpitations, No Orthopnea, No Paroxysmal Noc. Dyspnea, No Edema, No Lt Headedness, No Other Respiratory: No Cough, No Dry, No Shortness of breath, No SOB with excertion, No Wheezing, No Hemoptysis, No Pleuritic Pain, No Sputum, No Other Gastrointestinal: No Nausea, No Vomiting, No Abdominal Pain, No Diarrhea, No Constipation, No Melena, No Hematochezia, No Other Genitourinary: No Dysuria, No Frequency, No Incontinence, No Hematuria, No Retention, No Other Musculoskeletal: No other, No neck pain, No shoulder pain, No arm pain, No back pain, No hand pain, No leg pain, No foot pain Skin: No Rash, No Lesions, No Jaundice, No Bruising, No Other Objective Vitals Vital Signs Date Time Temp Pulse Resp B/P (MAP) Pulse Ox O2 Delivery O2 Flow Rate FiO2 07/07/24 09:31 78 25 109/66 (80) 98 30 07/07/24 08:00 Mechanical Ventilator+ 07/07/24 06:45 99.5 211.1 Intake/Output Intake and Output 07/07/24 07:00 Intake Total 4609.756 ml Output Total 2000 ml Balance 2609.756 ml Intake Oral 850 ml IV Total 3759.756 ml Output Urine Total 2000 ml General Appearance: Other (intubated and sedated) Lungs: Clear to auscultation, Normal air movement Cardiovascular: Regular rate, Normal S1 Abdomen: Normal bowel sounds, Soft, No tenderness Extremities: No edema Medications Current Medications Medications Dose Ordered Sig/Sandra Route Start Time Stop Time Status Last Admin Dose Admin Propofol 100 ml @ 2.181 mls/ hr Q24H IV 07/02/24 22:45 07/06/24 03:35 6.543 MLS/HR Ondansetron HCl 4 mg Q4HP PRN IV 10/18/24 23:15 Nitroglycerin 0.4 mg Q5MINP PRN SL 07/02/24 23:15 Morphine Sulfate 2 mg Q30M PRN IV 07/02/24 23:15 Midazolam HCl 50 ml @ 1 mls/hr Q24H IV 07/03/24 01:15 07/06/24 03:19 4 MLS/HR Vasopressin 20 units/Sodium Chloride 100 ml @ 9 mls/hr Q11H7M IV 07/03/24 10:00 07/05/24 06:49 9 MLS/HR Acetaminophen 650 mg Q6HP PRN GT 07/03/24 12:30 Hold 07/04/24 03:53 650 MG Enoxaparin Sodium 40 mg DAILY SC 07/04/24 10:00 07/07/24 09:39 40 MG Atorvastatin Calcium 40 mg HS GT 07/03/24 22:00 07/06/24 21:40 40 MG Phenylephrine HCl 80 mg/Sodium Chloride 250 ml @ 7.5 mls/hr Q24H IV 07/03/24 15:00 07/03/24 16:00 24.375 MLS/HR Norepinephrine Bitartrate 32 mg/ Sodium Chloride 250 ml @ 0.938 mls/ hr Q24H IV 07/03/24 15:00 07/06/24 05:36 0.938 MLS/HR Acetaminophen 1,000 mg Q8H PRN IV 07/03/24 19:45 Insulin Glargine 10 units BID@0700,2200 SC 07/03/24 22:00 07/07/24 06:20 10 UNITS Vancomycin HCl 0 ml @ 0 mls/hr UD IV 07/03/24 20:45 Purified Water 200 ml Q6HR GT 07/04/24 10:00 07/07/24 05:51 200 ML Pantoprazole Sodium 40 mg BID IV 07/04/24 22:00 07/07/24 09:39 40 MG Cefepime HCl 50 ml @ 12.5 mls/hr Q8H IV 07/04/24 18:00 07/07/24 09:39 12.5 MLS/HR Vancomycin HCl 200 ml @ 200 mls/hr Q12H IV 07/05/24 12:00 07/07/24 00:30 200 MLS/HR Diagnostic Test (Pha) 1 strip Q6HR 07/06/24 06:00 07/07/24 06:15 1 STRIP Insulin Human Regular Q6HR SC 07/06/24 06:00 07/07/24 06:19 2 UNITS Dextrose 50 ml UD PRN IV 07/06/24 03:45 Enteral Nutritional Formula 1,000 ml 60ML/HR GT 07/07/24 08:30 Laboratory Results Laboratory Tests 07/07/24 03:05 Chemistry Test 07/06/24 17:20 07/07/24 03:05 Calcium Level 8.5 mg/dL (8.7-10.4) L 8.5 mg/dL (8.7-10.4) L Albumin 3.0 g/dL (3.2-4.8) L Magnesium Level 2.3 mg/dL (1.6-2.6) Phosphorus Level 2.8 mg/dL (2.4-5.1) Total Protein 5.7 g/dL (5.7-8.2) LFT Test 07/07/24 03:05 Alanine Aminotransferase (ALT) 25 U/L (7-40) Alkaline Phosphatase 100 U/L (46-116) Aspartate Amino Transferase (AST) 43 U/L (13-40) H Total Bilirubin 0.4 mg/dL (0.2-1.0) Urinalysis Test 07/02/24 23:08 Urine Color Light-yellow (Yellow) Urine Clarity Clear (Clear) Urine pH 5.0 (5.0-9.0) Urine Specific [place] 1.025 (1.001-1.035) Urine Protein Negative (Negative) Urine Ketones 4+ (Negative) H Urine Blood Negative /uL (Negative) Urine Nitrite Negative (Negative) Urine Bilirubin Negative (Negative) Urine Urobilinogen Normal mg/dL (Negative) Urine Leukocyte Esterase Negative /uL (Negative) Urine RBC <1 /hpf (0 - 3) Urine WBC 1 /hpf (0 - 3) Urine Squamous Epithelial Cells None seen /hpf (<5) Urine Bacteria None seen /hpf (None Seen) Urine Glucose 4+ mg/dL (Normal) H Blood Gas Results Test 07/06/24 14:54 07/07/24 06:15 Arterial Blood pH 7.440 (7.350-7.450) 7.427 (7.350-7.450) FiO2 % 30.0 30.0 Microbiology Microbiology Date/Time Source Procedure Growth Status 07/05/24 14:26 Foot Right Gram Stain - Final Resulted 07/05/24 14:26 Foot Right Wound Culture - Preliminary Resulted 07/03/24 19:35 Blood Blood Culture - Final Staph hominis subsp homins Complete 07/03/24 16:51 Urine - [place] Urine Culture - Final Escherichia coli Enterococcus faecalis Complete 07/02/24 23:25 Sputum Gram Stain - Final Complete 07/02/24 23:25 Respiratory Culture - Final Staphylococcus aureus Klebsiella pneumoniae Citrobacter youngae Complete Assessment/Plan Assessment/Plan DKA, resolved DM, uncontrolled Acute hypoxic respiratory failure s/p intubation on mechanical ventilator ZOYA Sepsis w septic shock Hypernatremia Fever B feet ulcers Thrombocytopenia due to sepsis, improved PLAN: 07/03/2024: IV fluids, change to 1/2 NS Nephrology consult Vasopressors as needed Blood, urine and sputum cultures IV antibiotics: Empiric, change to Cefepime and Vanco Sedation as needed Start Lantus Full code Discussed with family at the bedside Advance directives discussed with family x 20 minutes 07/04/2024: Diarrhea: Check the stools for C diff ZOYA: Continue IV fluids Hypernatremia: Start free water Sepsis with septic shock: Continue cefepime and vancomycin Hypotension: Vasopressors Uterine cultures and respiratory cultures are Discussed with the family at the bedside Lantus 10 units twice a day Accu-Cheks q.4 hours 07/05/24: Continue IV fluids 1/2 NS Vancomycin + Cefepime Free water Minimize sedation Taper down Levophed Podiatry consult MRSA screen: Negative Lantus Discussed with at the bedside 07/06/24: Hypernatremia: Repeat labs Hypokalemia: Replace Vancomycin and Cefepime Continue free water 09/06/2024: Hypernatremia: Continue free water, start tube feeding with Glucerna , discontinue the IV fluids IV antibiotics: Cefepime and vancomycin Lantus Sliding scale Nephrology consult Pulmonary consult Discussed with the at the bedside Full code Plan discussed with: Spouse, Other My Orders Orders - MEHRAN GUERRERO MD Procedure Category Date Status Time Chest Xray 1 View XY 07/07/24 Resulted 06:48 Potassium Chl PHA 07/07/24 In Process 20meq/100ml 08:30 Nutritional PHA 07/07/24 In Process Supplements (Glucerna 08:30 * Dietary Consult CONS 07/07/24 Transmitted 08:25 Date of Service: Jul 07, 2024 Billing Provider: MEHRAN GUERRERO MD Common Visit Codes: [id number] CARE 30-74 MIN MEHRAN GUERRERO MD Jul 07, 2024 10:03
--- NOTE | 2024-07-07 10:08 | DVHPN2 ---
Progress Note Date Seen: Jul 07, 2024 Medical Necessity Reason Pt with a Central, PICC or Fol: Yes The following are medically ne: Jesus Catheter Reason for jesus catheter: Strict I&O Subjective Review of Systems: RESPIRATORY:Abnormal Other Systems: Patient seen and examined by myself today in follow-up Patient remained intubated on ventilator Objective vital signs Vital Sign Date Time Temp Pulse Resp B/P (MAP) Pulse Ox O2 Delivery O2 Flow Rate FiO2 07/07/24 09:31 78 25 109/66 (80) 98 30 07/07/24 08:00 Mechanical Ventilator+ 07/07/24 06:45 99.5 211.1 Total Intake and Output 07/06/24 07/06/24 07/07/24 15:00 23:00 07:00 Intake Total 1458.504 ml 1563.126 ml 1588.126 ml Output Total 1100 ml 900 ml Balance 1458.504 ml 463.126 ml 688.126 ml medications Current Medications Medications Dose Ordered Sig/Sandra Route Start Time Stop Time Status Last Admin Dose Admin Propofol 100 ml @ 2.181 mls/ hr Q24H IV 07/02/24 22:45 07/06/24 03:35 6.543 MLS/HR Ondansetron HCl 4 mg Q4HP PRN IV 07/02/24 23:15 Nitroglycerin 0.4 mg Q5MINP PRN SL 07/02/24 23:15 Morphine Sulfate 2 mg Q30M PRN IV 07/02/24 23:15 Midazolam HCl 50 ml @ 1 mls/hr Q24H IV 07/03/24 01:15 07/06/24 03:19 4 MLS/HR Vasopressin 20 units/Sodium Chloride 100 ml @ 9 mls/hr Q11H7M IV 07/03/24 10:00 07/05/24 06:49 9 MLS/HR Acetaminophen 650 mg Q6HP PRN GT 07/03/24 12:30 Hold 07/04/24 03:53 650 MG Enoxaparin Sodium 40 mg DAILY SC 07/04/24 10:00 07/07/24 09:39 40 MG Atorvastatin Calcium 40 mg HS GT 07/03/24 22:00 07/06/24 21:40 40 MG Phenylephrine HCl 80 mg/Sodium Chloride 250 ml @ 7.5 mls/hr Q24H IV 07/03/24 15:00 07/03/24 16:00 24.375 MLS/HR Norepinephrine Bitartrate 32 mg/ Sodium Chloride 250 ml @ 0.938 mls/ hr Q24H IV 07/03/24 15:00 07/06/24 05:36 0.938 MLS/HR Acetaminophen 1,000 mg Q8H PRN IV 07/03/24 19:45 Insulin Glargine 10 units BID@0700,2200 SC 07/03/24 22:00 07/07/24 06:20 10 UNITS Vancomycin HCl 0 ml @ 0 mls/hr UD IV 07/03/24 20:45 Purified Water 200 ml Q6HR GT 07/04/24 10:00 07/07/24 05:51 200 ML Pantoprazole Sodium 40 mg BID IV 07/04/24 22:00 07/07/24 09:39 40 MG Cefepime HCl 50 ml @ 12.5 mls/hr Q8H IV 07/04/24 18:00 07/07/24 09:39 12.5 MLS/HR Vancomycin HCl 200 ml @ 200 mls/hr Q12H IV 07/05/24 12:00 07/07/24 00:30 200 MLS/HR Diagnostic Test (Pha) 1 strip Q6HR 07/06/24 06:00 07/07/24 06:15 1 STRIP Insulin Human Regular Q6HR SC 07/06/24 06:00 07/07/24 06:19 2 UNITS Dextrose 50 ml UD PRN IV 07/06/24 03:45 Enteral Nutritional Formula 1,000 ml 60ML/HR GT 07/07/24 08:30 Examination: LUNGS:Normal, CVS:Normal, MSK:Normal laboratory and microbiology Laboratory Tests 07/07/24 03:05 Test 07/07/24 03:05 Range/Units Serum Glucose 140 H 74-106 mg/dL Microbiology Date/Time Source Procedure Growth Status 07/05/24 14:26 Foot Right Gram Stain - Final Resulted 07/05/24 14:26 Foot Right Wound Culture - Preliminary Resulted 07/03/24 19:35 Blood Blood Culture - Final Staph hominis subsp homins Complete 07/03/24 16:51 Urine - [place] Urine Culture - Final Escherichia coli Enterococcus faecalis Complete 07/02/24 23:25 Sputum Gram Stain - Final Complete 07/02/24 23:25 Respiratory Culture - Final Staphylococcus aureus Klebsiella pneumoniae Citrobacter youngae Complete Problem List/Assessment/Plan Problem List/Assessment/Plan Acute kidney injury hemodynamic mediated etiology Acute respiratory failure, intubated on ventilator Diabetic ketoacidosis Uncontrolled diabetes mellitus Hypernatremia due to dehydration Gram-positive bacteremia Hypoalbuminemia Hypokalemia Hypophosphatemia Recommendations Kidney function resolved back to normal Increased urine output K-Phos IV piggyback I agree with IV hypotonic fluid hydration Insulin sliding scale IV antibiotics Free water through NG tube I will sign off this case please reconsult as needed, thank you for the consult Plan discussed with: Other (Nurse) Dietary Evaluation Review Comments: 1) If GI is preferred route consider Nepro @ 45 ml/hr goal rate as tolerated 2) If pt remains NPO >7 days consider TPN to meet at least 75% of estimated needs 3) Advance pt diet when medically feasible to a CCHO 60g, Renal diet modified per H[employer] COMPLIANCE MANAGER recommendations 4) Continue current plan of care Expected Outcomes/Goals: 1. Pt will consume >75% of estimated needs within 2-3 days NAKITA SIFUENTES MD Jul 07, 2024 10:08
[2024-07-07] MEDS ORDERED: VANCOMYCIN 1GM/250ML KIT 200 ML IV SCH (11:00)
[2024-07-07] MEDS: VANCOMYCIN 750mg/150ml 150 ML IV SCH (11:35)
[2024-07-07] MEDS: Glucerna 1.2 Cal 1Liter BOTTLE GT SCH (17:33)
--- NOTE | 2024-07-07 22:58 | DVHPN2 ---
Progress Note - Dictate Date Seen: Jul 07, 2024 Medical Necessity Reason Pt with a Central, PICC or Fol: Yes The following are medically ne: Jesus Catheter Reason for jesus catheter: Strict I&O Subjective Patient seen and examined at bedside. Sedated, intubated on mechanical ventilator. Overnight events reviewed. vital signs Vital Sign Date Time Temp Pulse Resp B/P (MAP) Pulse Ox O2 Delivery O2 Flow Rate FiO2 07/07/24 22:07 79 28 116/70 (85) 100 30 07/07/24 18:45 100.2 212.4 07/07/24 18:00 Mechanical Ventilator+ Total Intake and Output 07/06/24 07/06/24 07/07/24 15:00 23:00 07:00 Intake Total 1458.504 ml 1563.126 ml 1588.126 ml Output Total 1100 ml 900 ml Balance 1458.504 ml 463.126 ml 688.126 ml medications Current Medications Medications Dose Ordered Sig/Sandra Route Start Time Stop Time Status Last Admin Dose Admin Propofol 100 ml @ 2.181 mls/ hr Q24H IV 07/02/24 22:45 07/06/24 03:35 6.543 MLS/HR Ondansetron HCl 4 mg Q4HP PRN IV 07/02/24 23:15 Nitroglycerin 0.4 mg Q5MINP PRN SL 07/02/24 23:15 Morphine Sulfate 2 mg Q30M PRN IV 07/02/24 23:15 Midazolam HCl 50 ml @ 1 mls/hr Q24H IV 07/03/24 01:15 07/06/24 03:19 4 MLS/HR Vasopressin 20 units/Sodium Chloride 100 ml @ 9 mls/hr Q11H7M IV 07/03/24 10:00 07/05/24 06:49 9 MLS/HR Acetaminophen 650 mg Q6HP PRN GT 07/03/24 12:30 Hold 07/04/24 03:53 650 MG Enoxaparin Sodium 40 mg DAILY SC 07/04/24 10:00 07/07/24 09:39 40 MG Atorvastatin Calcium 40 mg HS GT 07/03/24 22:00 07/07/24 21:24 40 MG Phenylephrine HCl 80 mg/Sodium Chloride 250 ml @ 7.5 mls/hr Q24H IV 07/03/24 15:00 07/03/24 16:00 24.375 MLS/HR Norepinephrine Bitartrate 32 mg/ Sodium Chloride 250 ml @ 0.938 mls/ hr Q24H IV 07/03/24 15:00 07/06/24 05:36 0.938 MLS/HR Acetaminophen 1,000 mg Q8H PRN IV 07/03/24 19:45 Insulin Glargine 10 units BID@0700,2200 SC 07/03/24 22:00 07/07/24 21:44 10 UNITS Vancomycin HCl 0 ml @ 0 mls/hr UD IV 07/03/24 20:45 Purified Water 200 ml Q6HR GT 07/04/24 10:00 07/07/24 17:34 200 ML Pantoprazole Sodium 40 mg BID IV 07/04/24 22:00 07/07/24 21:24 40 MG Cefepime HCl 50 ml @ 12.5 mls/hr Q8H IV 07/04/24 18:00 07/07/24 17:34 12.5 MLS/HR Diagnostic Test (Pha) 1 strip Q6HR 07/06/24 06:00 07/07/24 17:44 1 STRIP Insulin Human Regular Q6HR SC 07/06/24 06:00 07/07/24 12:12 2 UNITS Dextrose 50 ml UD PRN IV 07/06/24 03:45 Enteral Nutritional Formula 1,000 ml 60ML/HR GT 07/07/24 08:30 07/07/24 17:33 1,000 ML Vancomycin HCl 150 ml @ 150 mls/hr Q8H IV 07/07/24 11:00 07/07/24 18:49 150 MLS/HR objective Gen.: Patient lying in bed in medical ICU. Sedated, intubated on mechanical ventilator. Head: Normocephalic, atraumatic. Eyes: PERRLA. Ears: Normal external anatomy. Throat: Endotracheal tube and orogastric tube in place. Neck: Supple, trachea midline. Chest: Transmitted breath sounds bilaterally. Decreased air entry bilaterally. No wheezing. Bibasilar crackles. Cardiovascular: Positive S1, positive S2. Regular rate and rhythm. Abdomen: Positive bowel sounds in all 4 quadrants. Soft, nontender, nondistended. : Jesus in place. Normal external genitalia. Rectal: Deferred. Skin: Warm, dry. Intact. Extremities: 2+ radial pulses bilaterally. No lower extremity edema. Neuro: Sedated. laboratory and microbiology Laboratory Tests 07/07/24 03:05 Test 07/07/24 03:05 Range/Units Serum Glucose 140 H 74-106 mg/dL Assessment/Plan Impression: Acute hypoxic respiratory failure On mechanical ventilator Diabetic ketoacidosis Acute kidney injury Cachexia with a BMI of 1816.8 Events Patient tolerated CPAP this AM. Patient was on assisted control mode of ventilation with following settings Frequency 20, Tidal volume 500, Peep 5, FiO2 30%. CPAP trial with following settings- PS 10 Cm H20. FiO2 30% MRSA screen negative Started vancomycin, cefepime. Continue abx Potassium supplementation Monitor renal function On pressors for hemodynamic support Levophed 4 mcg/min Titrate to keep mean arterial pressure greater than 65 mmHg Monitor hemoglobin Stool occult blood positive. Monitor WBC CPAP SBT/[place]. Labs and imaging reviewed Rest of plan as noted below Plan: s/p intubation on mechanical ventilator CT head demonstrates no acute intracranial hemorrhage. Partial CXR image and report reviewed. No acute opacities. Devices in place. ABG reviewed. Compensated. Metabolic Acidosis with respiratory compensation. On assist-control mode with a respiratory rate of 20, tidal volume 500, PEEP of 5, FiO2 30% Titrate FIO2 to keep O2 saturation above 92%. VAP bundle Daily ABG and CXR while intubated. Sedate for ventilatory synchrony, on Versed On pressors for hemodynamic support. Titrate to keep MAP above 65 mmHg/SBP above 90 mmHg. Continue antibiotics. F/u cultures. Monitor renal function due to Acute kidney injury. Monitor electrolytes. Supplement as necessary. IVF NS at 100mL/hour Insulin drip Accucheks, ISS. GI/DVT prophylaxis. Condition: Critical Prognosis: Poor given multiple comorbidities. Rest of plan per hospitalist and other consultants. A total of 35 minutes of critical care time was spent reviewing the patient record, examining the patient, making a diagnostic and therapeutic plan, discussing this plan with the medical personnel, following up on diagnostic studies and following the patient for clinical stability excluding any and all procedures. At least 50% of this time was spent in direct, [id number] contact. Thank you IZAIAH Cardona for allowing me to participate in this patient's care. Further recommendations will depend on patient's clinical course. Please do not hesitate to contact me if you have any questions or concerns. This medical document was created using an electronic medical record system with [employer] dictation system. Although this document has been carefully reviewed, there may still be some phonetic and typographical errors. These areas are purely typographical due to imperfections of the software programs, and do not reflect any compromise in the patient's medical care. Dietary Evaluation Review Comments: 1) If GI is preferred route consider Nepro @ 45 ml/hr goal rate as tolerated 2) If pt remains NPO >7 days consider TPN to meet at least 75% of estimated needs 3) Advance pt diet when medically feasible to a CCHO 60g, Renal diet modified per [employer] OPER[employer]ATIC recommendations 4) Continue current plan of care Expected Outcomes/Goals: 1. Pt will consume >75% of estimated needs within 2-3 days Plan discussed with: Other (LUKE Gonzalez) Critical Care Time(min): 35 NADER ALLEN MD Jul 07, 2024 22:58
[2024-07-08] VITALS (108 sets, daily range): BP systolic 83–148; BP diastolic 21–87; PULSE 73–98; RESP 13–29; TEMP 98.2–100.6; O2SAT 93–100
[2024-07-08 03:48] LABS: Hemoglobin 13.8 g/dL (13.5-17.5); Mean Corpuscular Hemoglobin 29.8 pg (28.0-32.0); Mean Corpuscular Hgb Conc. 33.5 g/dL (32.0-36.0); Mean Corpuscular Volume 88.7 fL (80.0-100.0); Platelet Count (auto) 226 10^3/uL (140-450); Red Blood Cells 4.62 10^6/uL (4.5-5.90); Red Cell Distribution Width 15.4 % (11.8-14.3)
[2024-07-08 04:01] LABS: Basophils % (manual) 0 (0.0-2.0); Blast Cells 0; Eosinophils % (manual) 0 (0-7); Myelocytes % 0; Promyelocytes % 0; Reactive Lymphocytes 0
[2024-07-08 04:08] LABS: Alanine Aminotransferase 20 U/L (7-40); Albumin 2.9 g/dL (3.2-4.8); Alkaline Phosphatase 95 U/L (46-116); Anion Gap 7 (5-15); Aspartate Aminotransferase 24 U/L (13-40); BUN/Creatinine Ratio 21.9 (10.0-20.0); Blood Urea Nitrogen 14 mg/dL (9-23); Calcium 8.7 mg/dL (8.7-10.4); Carbon Dioxide 28 mmol/L (20-31); Chloride 116 mmol/L (98-107); Glucose 157 mg/dL (74-106); Magnesium 2.3 mg/dL (1.6-2.6); Potassium 3.5 mmol/L (3.5-5.1); Sodium 151 mmol/L (136-145)
[2024-07-08 04:09] LABS: Bilirubin, Total 0.4 mg/dL (0.2-1.0); Phosphorus 2.7 mg/dL (2.4-5.1); Total Protein 5.8 g/dL (5.7-8.2)
--- NOTE | 2024-07-08 05:25 | DVH ---
CHEST RADIOGRAPH Indication:Intubated Technique: Single frontal view of the chest was obtained Comparison: XY CHEST XRAY 1 VIEW on DOS: 07/07/24 FINDINGS: Lines and Tubes: The endotracheal tube terminates 5.7 cm above the nat. Enteric tube terminates i n the stomach. Lungs: Decreased bilateral interstitial prominence. No focal airspace consolidation. Pleura: No effusion. No pneumothorax. Cardiomediastinal contours: Unremarkable Bones: No acute osseous abnormality. IMPRESSION: 1. Enteric tube and endotracheal tube are stable. 2. Decreased bilateral interstitial prominence. No focal airspace consolidation.
[2024-07-08 05:32] LABS: Anisocytosis Slight; Band Neutrophils % (manual) 5; Large Platelets FEW; Lymphocytes % (manual) 10 (10.0-50.0); Metamyelocytes % 1; Monocytes % (manual) 21 (0-12); Platelet Estimate Adequate
--- NOTE | 2024-07-08 11:27 | MEDREC ---
[facility] ASP Intervention Section I [facility] ASP Intervention: Deescalate AB based on CS (PLEASE CONSIDE DE-ESCALATE ANTIBIOTICS BASED ON CULTURE RESULT (MSSA AND STREP GROUP B)) KENYA HOUGH Jul 08, 2024 11:27
[2024-07-08] MEDS: ALBUTEROL SULF 2.5 MG/0.5ML(0.5%) NEB SOLN NEB PRN (13:52)
[2024-07-08] MEDS: ACETYLCYSTEINE 20%(200MG/ML) SOL 4ML NEB SCH (13:52)
[2024-07-08 14:42] LABS: Base Excess 3.7 mmol/L (-2.0-3.0)
--- NOTE | 2024-07-08 15:30 | DVHPN2 ---
Subjective He is off sedation Following commands Still somewhat sedated CPAP in progress Scheduled for bronchoscopy today and possibly extubation Changes from previous H/P or p: Changes Eyes: No Pain, No Vision change, No Conjunctivae inflammation, No Eyelid inflammation, No Other, No Redness ENT: No Ear pain, No Ear discharge, No Nose pain, No Nose discharge, No Nose congestion, No Mouth pain, No Mouth swelling, No Throat pain, No Throat swelling, No Other Cardiovascular: No Chest Pain, No Palpitations, No Orthopnea, No Paroxysmal Noc. Dyspnea, No Edema, No Lt Headedness, No Other Respiratory: No Cough, No Dry, No Shortness of breath, No SOB with excertion, No Wheezing, No Hemoptysis, No Pleuritic Pain, No Sputum, No Other Gastrointestinal: No Nausea, No Vomiting, No Abdominal Pain, No Diarrhea, No Constipation, No Melena, No Hematochezia, No Other Genitourinary: No Dysuria, No Frequency, No Incontinence, No Hematuria, No Retention, No Other Musculoskeletal: No other, No neck pain, No shoulder pain, No arm pain, No back pain, No hand pain, No leg pain, No foot pain Skin: No Rash, No Lesions, No Jaundice, No Bruising, No Other Objective Vitals Vital Signs Date Time Temp Pulse Resp B/P (MAP) Pulse Ox O2 Delivery O2 Flow Rate FiO2 07/08/24 14:30 99.7 90 20 111/64 (80) 96 211.5 07/08/24 14:00 30 07/08/24 14:00 Mechanical Ventilator+ Intake/Output Intake and Output 07/08/24 07:00 Intake Total 1649.500 ml Output Total 1425 ml Balance 224.500 ml Intake Oral 820 ml IV Total 764.500 ml Tube Feeding 65 ml Output Urine Total 1425 ml General Appearance: Alert (Somnolent, off sedation), Other Lungs: Clear to auscultation, Normal air movement Cardiovascular: Regular rate, Normal S1 Abdomen: Normal bowel sounds, Soft, No tenderness Extremities: No edema Medications Current Medications Medications Dose Ordered Sig/Sandra Route Start Time Stop Time Status Last Admin Dose Admin Propofol 100 ml @ 2.181 mls/ hr Q24H IV 07/02/24 22:45 07/06/24 03:35 6.543 MLS/HR Ondansetron HCl 4 mg Q4HP PRN IV 07/02/24 23:15 Nitroglycerin 0.4 mg Q5MINP PRN SL 07/02/24 23:15 Morphine Sulfate 2 mg Q30M PRN IV 07/02/24 23:15 Midazolam HCl 50 ml @ 1 mls/hr Q24H IV 07/03/24 01:15 07/06/24 03:19 4 MLS/HR Vasopressin 20 units/Sodium Chloride 100 ml @ 9 mls/hr Q11H7M IV 07/03/24 10:00 07/05/24 06:49 9 MLS/HR Acetaminophen 650 mg Q6HP PRN GT 07/03/24 12:30 Hold 07/04/24 03:53 650 MG Enoxaparin Sodium 40 mg DAILY SC 07/04/24 10:00 07/08/24 09:10 40 MG Atorvastatin Calcium 40 mg HS GT 07/03/24 22:00 07/07/24 21:24 40 MG Phenylephrine HCl 80 mg/Sodium Chloride 250 ml @ 7.5 mls/hr Q24H IV 07/03/24 15:00 07/03/24 16:00 24.375 MLS/HR Norepinephrine Bitartrate 32 mg/ Sodium Chloride 250 ml @ 0.938 mls/ hr Q24H IV 07/03/24 15:00 07/06/24 05:36 0.938 MLS/HR Acetaminophen 1,000 mg Q8H PRN IV 07/03/24 19:45 Insulin Glargine 10 units BID@0700,2200 SC 07/03/24 22:00 07/08/24 06:39 10 UNITS Vancomycin HCl 0 ml @ 0 mls/hr UD IV 07/03/24 20:45 Purified Water 200 ml Q6HR GT 07/04/24 10:00 07/08/24 11:57 200 ML Pantoprazole Sodium 40 mg BID IV 07/04/24 22:00 07/08/24 09:10 40 MG Cefepime HCl 50 ml @ 12.5 mls/hr Q8H IV 07/04/24 18:00 07/08/24 09:09 12.5 MLS/HR Diagnostic Test (Pha) 1 strip Q6HR 07/06/24 06:00 07/08/24 11:57 1 STRIP Insulin Human Regular Q6HR SC 07/06/24 06:00 07/08/24 06:00 2 UNITS Dextrose 50 ml UD PRN IV 07/06/24 03:45 Enteral Nutritional Formula 1,000 ml 60ML/HR GT 07/07/24 08:30 07/07/24 17:33 1,000 ML Vancomycin HCl 150 ml @ 150 mls/hr Q8H IV 07/07/24 11:00 07/08/24 11:57 150 MLS/HR Acetylcysteine 200 mg Q8HR NEB 07/08/24 14:00 07/08/24 13:52 200 MG Albuterol 2.5 mg Q4HPRN PRN NEB 07/08/24 13:45 07/08/24 13:52 2.5 MG Laboratory Results Laboratory Tests 07/08/24 03:31 Chemistry Test 07/08/24 03:31 Albumin 2.9 g/dL (3.2-4.8) L Calcium Level 8.7 mg/dL (8.7-10.4) Magnesium Level 2.3 mg/dL (1.6-2.6) Phosphorus Level 2.7 mg/dL (2.4-5.1) Total Protein 5.8 g/dL (5.7-8.2) LFT Test 07/08/24 03:31 Alanine Aminotransferase (ALT) 20 U/L (7-40) Alkaline Phosphatase 95 U/L (46-116) Aspartate Amino Transferase (AST) 24 U/L (13-40) Total Bilirubin 0.4 mg/dL (0.2-1.0) Urinalysis Test 07/02/24 23:08 Urine Color Light-yellow (Yellow) Urine Clarity Clear (Clear) Urine pH 5.0 (5.0-9.0) Urine Specific Julian 1.025 (1.001-1.035) Urine Protein Negative (Negative) Urine Ketones 4+ (Negative) H Urine Blood Negative /uL (Negative) Urine Nitrite Negative (Negative) Urine Bilirubin Negative (Negative) Urine Urobilinogen Normal mg/dL (Negative) Urine Leukocyte Esterase Negative /uL (Negative) Urine RBC <1 /hpf (0 - 3) Urine WBC 1 /hpf (0 - 3) Urine Squamous Epithelial Cells None seen /hpf (<5) Urine Bacteria None seen /hpf (None Seen) Urine Glucose 4+ mg/dL (Normal) H Blood Gas Results Test 07/08/24 14:33 Arterial Blood pH 7.473 (7.350-7.450) FiO2 % 30.0 Microbiology Microbiology Date/Time Source Procedure Growth Status 07/05/24 14:26 Foot Right Gram Stain - Final Complete 07/05/24 14:26 Wound Culture - Final Staphylococcus aureus Streptococcus Group B Complete 07/03/24 19:35 Blood Blood Culture - Final Staph hominis subsp homins Complete 07/03/24 16:51 Urine - [place] Urine Culture - Final Escherichia coli Enterococcus faecalis Complete 07/02/24 23:25 Sputum Gram Stain - Final Complete 07/02/24 23:25 Respiratory Culture - Final Staphylococcus aureus Klebsiella pneumoniae Citrobacter youngae Complete Assessment/Plan Assessment/Plan DKA, resolved DM, uncontrolled Acute hypoxic respiratory failure s/p intubation on mechanical ventilator ZOYA Sepsis w septic shock Hypernatremia Fever B feet ulcers Thrombocytopenia due to sepsis, improved PLAN: 07/03/2024: IV fluids, change to 1/2 NS Nephrology consult Vasopressors as needed Blood, urine and sputum cultures IV antibiotics: Empiric, change to Cefepime and Vanco Sedation as needed Start Lantus Full code Discussed with family at the bedside Advance directives discussed with family x 20 minutes 07/04/2024: Diarrhea: Check the stools for C diff ZOYA: Continue IV fluids Hypernatremia: Start free water Sepsis with septic shock: Continue cefepime and vancomycin Hypotension: Vasopressors Uterine cultures and respiratory cultures are Discussed with the family at the bedside Lantus 10 units twice a day Accu-Cheks q.4 hours 07/05/24: Continue IV fluids 1/2 NS Vancomycin + Cefepime Free water Minimize sedation Taper down Levophed Podiatry consult MRSA screen: Negative Lantus Discussed with at the bedside 07/06/24: Hypernatremia: Repeat labs Hypokalemia: Replace Vancomycin and Cefepime Continue free water 09/06/2024: Hypernatremia: Continue free water, start tube feeding with Glucerna , discontinue the IV fluids IV antibiotics: Cefepime and vancomycin Lantus Sliding scale Nephrology consult Pulmonary consult Discussed with the at the bedside Full code 07/08/2024: Continue free water to correct hypernatremia With that trial in progress Wound infection with Staph aureus Sputum culture showed Staph aureus and Klebsiella pneumoniae and Citrobacter Blood culture with Staph home in his Cefepime and vancomycin Endoscopy for today Extubation possibly after bronchoscopy today Plan discussed with: Other My Orders Orders - MEHRAN GUERRERO MD Procedure Category Date Status Time Chest Portable XY 07/08/24 Resulted 06:00 Vancomycin,Trough LAB 07/10/24 Verified 10:00 Complete Blood Count LAB 07/09/24 Verified 04:00 Creatinine LAB 07/09/24 Verified 04:00 Vancomycin Per ELI 07/08/24 In Process Pharmacy [facility] 12:31 Date of Service: Jul 08, 2024 Billing Provider: MEHRAN GUERRERO MD Common Visit Codes: [id number] INP/OBS CARE(HIGH) MEHRAN GUERRERO MD Jul 08, 2024 15:30
[2024-07-08] MEDS: MIDAZOLAM HCL 2MG/2ML 2ml VIAL (1mg/ml) IV STA (17:54)
[2024-07-08] MEDS: fentaNYL CITRATE 100 MCG/2 ML VL IV STA (17:56)
[2024-07-08 20:11] LABS: Base Excess 3.1 mmol/L (-2.0-3.0)
[2024-07-08] MEDS ORDERED: fentaNYL Drip 2500mCg/250mlNS 250 ML IV SCH ×2 (21:15)
[2024-07-08] MEDS: FLUCONAZOLE 200MG/100ML 100 ML IV SCH (21:49)
--- NOTE | 2024-07-08 21:57 | DVHPN2 ---
Progress Note - Dictate Date Seen: Jul 08, 2024 Medical Necessity Reason Pt with a Central, PICC or Fol: Yes The following are medically ne: Jesus Catheter Reason for jesus catheter: Strict I&O Subjective Patient seen and examined at bedside. Sedated, intubated on mechanical ventilator. Overnight events reviewed. vital signs Vital Sign Date Time Temp Pulse Resp B/P (MAP) Pulse Ox O2 Delivery O2 Flow Rate FiO2 07/08/24 21:15 99.1 94 24 123/81 (95) 100 210.4 07/08/24 20:06 60 07/08/24 20:00 Mechanical Ventilator+ Total Intake and Output 07/07/24 07/07/24 07/08/24 15:00 23:00 07:00 Intake Total 340.000 ml 621.375 ml 688.125 ml Output Total 525 ml 900 ml Balance 340.000 ml 96.375 ml -211.875 ml medications Current Medications Medications Dose Ordered Sig/Sandra Route Start Time Stop Time Status Last Admin Dose Admin Propofol 100 ml @ 2.181 mls/ hr Q24H IV 07/02/24 22:45 07/06/24 03:35 6.543 MLS/HR Ondansetron HCl 4 mg Q4HP PRN IV 07/02/24 23:15 Nitroglycerin 0.4 mg Q5MINP PRN SL 07/02/24 23:15 Morphine Sulfate 2 mg Q30M PRN IV 07/02/24 23:15 Midazolam HCl 50 ml @ 1 mls/hr Q24H IV 07/03/24 01:15 07/06/24 03:19 4 MLS/HR Vasopressin 20 units/Sodium Chloride 100 ml @ 9 mls/hr Q11H7M IV 07/03/24 10:00 07/05/24 06:49 9 MLS/HR Acetaminophen 650 mg Q6HP PRN GT 07/03/24 12:30 Hold 07/04/24 03:53 650 MG Enoxaparin Sodium 40 mg DAILY SC 07/04/24 10:00 07/08/24 09:10 40 MG Atorvastatin Calcium 40 mg HS GT 07/03/24 22:00 07/08/24 21:49 40 MG Phenylephrine HCl 80 mg/Sodium Chloride 250 ml @ 7.5 mls/hr Q24H IV 07/03/24 15:00 07/03/24 16:00 24.375 MLS/HR Norepinephrine Bitartrate 32 mg/ Sodium Chloride 250 ml @ 0.938 mls/ hr Q24H IV 07/03/24 15:00 07/06/24 05:36 0.938 MLS/HR Acetaminophen 1,000 mg Q8H PRN IV 07/03/24 19:45 Insulin Glargine 10 units BID@0700,2200 SC 07/03/24 22:00 07/08/24 06:39 10 UNITS Vancomycin HCl 0 ml @ 0 mls/hr UD IV 07/03/24 20:45 Pantoprazole Sodium 40 mg BID IV 07/04/24 22:00 07/08/24 21:49 40 MG Cefepime HCl 50 ml @ 12.5 mls/hr Q8H IV 07/04/24 18:00 07/08/24 16:05 12.5 MLS/HR Diagnostic Test (Pha) 1 strip Q6HR 07/06/24 06:00 07/08/24 17:20 1 STRIP Insulin Human Regular Q6HR SC 07/06/24 06:00 07/08/24 06:00 2 UNITS Dextrose 50 ml UD PRN IV 07/06/24 03:45 Enteral Nutritional Formula 1,000 ml 60ML/HR GT 07/07/24 08:30 07/07/24 17:33 1,000 ML Vancomycin HCl 150 ml @ 150 mls/hr Q8H IV 07/07/24 11:00 07/08/24 19:08 150 MLS/HR Acetylcysteine 200 mg Q8HR NEB 07/08/24 14:00 07/08/24 13:52 200 MG Albuterol 2.5 mg Q4HPRN PRN NEB 07/08/24 13:45 07/08/24 13:52 2.5 MG Dexmedetomidine HCl 400 mcg/ Dextrose 100 ml @ 4 mls/hr Q24H IV 07/08/24 18:00 07/08/24 18:13 4 MLS/HR Fluconazole 100 ml @ 100 mls/hr DAILY@2200 IV 07/08/24 22:00 07/08/24 21:49 100 MLS/HR Fentanyl Citrate 250 ml @ 2.5 mls/hr Q24H IV 07/08/24 21:15 Purified Water 200 ml Q4HR GT 07/08/24 21:45 UNV objective Gen.: Patient lying in bed in medical ICU. Sedated, intubated on mechanical ventilator. Head: Normocephalic, atraumatic. Eyes: PERRLA. Ears: Normal external anatomy. Throat: Endotracheal tube and orogastric tube in place. Neck: Supple, trachea midline. Chest: Transmitted breath sounds bilaterally. Decreased air entry bilaterally. No wheezing. Bibasilar crackles. Cardiovascular: Positive S1, positive S2. Regular rate and rhythm. Abdomen: Positive bowel sounds in all 4 quadrants. Soft, nontender, nondistended. : Jesus in place. Normal external genitalia. Rectal: Deferred. Skin: Warm, dry. Intact. Extremities: 2+ radial pulses bilaterally. No lower extremity edema. Neuro: Sedated. laboratory and microbiology Laboratory Tests 07/08/24 03:31 Test 07/08/24 03:31 Range/Units Serum Glucose 157 H 74-106 mg/dL Assessment/Plan Impression: Acute hypoxic respiratory failure On mechanical ventilator Diabetic ketoacidosis Acute kidney injury Cachexia with a BMI of 1816.8 Events Remains on mechanical vent Vent settings: PCV mode; RR 14; I-Pressure 20; I-time 0.8, PEEP 5, 60% FiO2 Taper FiO2 as tolerated Sedated on Fentanyl, Versed On Precedex drip. On pressors for hemodynamic support Levophed 2 mcg/min Titrate to keep mean arterial pressure greater than 65 mmHg Tube feeds for nutritional support S/p bronchoscopy w/ BAL. White plaques noted throughout, likely through bleeding with removal Start Diflucan course. Continue abx - vancomycin, cefepime. MRSA screen negative Monitor renal function Monitor electrolytes, supplement as necessary Monitor hemoglobin Stool occult blood positive. Monitor WBC CPAP SBT/[place]. Labs and imaging reviewed Rest of plan as noted below Plan: s/p intubation on mechanical ventilator CT head demonstrates no acute intracranial hemorrhage. CXR image and report reviewed. No acute opacities. Devices in place. ABG reviewed. Compensated. Metabolic Acidosis with respiratory compensation. Vent settings: PCV mode; RR 14; I-Pressure 20; I-time 0.8, PEEP 5, 60% FiO2 Titrate FIO2 to keep O2 saturation above 92%. VAP bundle Daily ABG and CXR while intubated. Sedate for ventilatory synchrony, on Versed On pressors for hemodynamic support. Titrate to keep MAP above 65 mmHg/SBP above 90 mmHg. Continue antibiotics. F/u cultures. Monitor renal function due to Acute kidney injury. Monitor electrolytes. Supplement as necessary. IVF NS at 100mL/hour Insulin drip Accucheks, ISS. GI/DVT prophylaxis. Condition: Critical Prognosis: Poor given multiple comorbidities. Rest of plan per hospitalist and other consultants. A total of 35 minutes of critical care time was spent reviewing the patient record, examining the patient, making a diagnostic and therapeutic plan, discussing this plan with the medical personnel, following up on diagnostic studies and following the patient for clinical stability excluding any and all procedures. At least 50% of this time was spent in direct, [id number] contact. Thank you HISTORIC SITES SUPERVISOR Brendan for allowing me to participate in this patient's care. Further recommendations will depend on patient's clinical course. Please do not hesitate to contact me if you have any questions or concerns. This medical document was created using an electronic medical record system with [employer] dictation system. Although this document has been carefully reviewed, there may still be some phonetic and typographical errors. These areas are purely typographical due to imperfections of the software programs, and do not reflect any compromise in the patient's medical care. Dietary Evaluation Review Comments: 1) If GI is preferred route consider Nepro @ 45 ml/hr goal rate as tolerated 2) If pt remains NPO >7 days consider TPN to meet at least 75% of estimated needs 3) Advance pt diet when medically feasible to a CCHO 60g, Renal diet modified per MATERNITY FLOOR SUPERVISOR recommendations 4) Continue current plan of care Expected Outcomes/Goals: 1. Pt will consume >75% of estimated needs within 2-3 days Plan discussed with: Other (LUKE Summers) Critical Care Time(min): 35 NADER ALLEN MD Jul 08, 2024 21:57
[2024-07-08] MEDS: FREE WATER GT SCH (22:18)
[2024-07-08] MEDS: fentaNYL Drip 2500mCg/250mlNS 250 ML IV SCH (22:19)
[2024-07-09] VITALS (98 sets, daily range): BP systolic 87–140; BP diastolic 42–98; PULSE 68–120; RESP 10–36; TEMP 97–100.6; O2SAT 85–100
[2024-07-09] MEDS: NOREPINEPHRINE BITARTRATE 6 ML IV ONE (00:16)
[2024-07-09] MEDS: NOREPINEPHRINE 8 MG/250ML KIT 0 ML IV ONE (00:16)
[2024-07-09] MEDS: NOREPINEPHRINE BITARTRATE 2 ML IV ONE (00:23)
[2024-07-09 04:35] LABS: Basophils # (auto) 0 10 ^3/uL (0-0.2); Basophils % (auto) 0.1 % (0.0-2.0); Eosinophils # (auto) 0 10 ^3/uL (0-0.8); Hematocrit 41.1 % (41.0-53.0); Hemoglobin 13.6 g/dL (13.5-17.5); Lymphocytes % (auto) 6.5 % (10.0-50.0); Mean Corpuscular Hemoglobin 29.8 pg (28.0-32.0); Mean Corpuscular Hgb Conc. 33.1 g/dL (32.0-36.0); Monocytes # (auto) 1.8 10 ^3/uL (0-1.3); Monocytes % (auto) 11.4 % (0.0-12.0); Nucleated Red Blood Cells % 0.1 %; Platelet Count (auto) 258 10^3/uL (140-450); Red Blood Cells 4.57 10^6/uL (4.5-5.90); White Blood Cell 15.9 10^3/uL (4.4-10.8)
[2024-07-09 04:46] LABS: Alanine Aminotransferase 19 U/L (7-40); Alkaline Phosphatase 98 U/L (46-116); Anion Gap 13 (5-15); Aspartate Aminotransferase 27 U/L (13-40); BUN/Creatinine Ratio 17.6 (10.0-20.0); Blood Urea Nitrogen 9 mg/dL (9-23); Calcium 8.8 mg/dL (8.7-10.4); Carbon Dioxide 24 mmol/L (20-31); Chloride 114 mmol/L (98-107); Glucose 140 mg/dL (74-106); Magnesium 2.1 mg/dL (1.6-2.6); Potassium 2.9 mmol/L (3.5-5.1); Sodium 151 mmol/L (136-145)
[2024-07-09 04:47] LABS: Bilirubin, Total 0.4 mg/dL (0.2-1.0)
--- NOTE | 2024-07-09 05:37 | DVH ---
CHEST RADIOGRAPH Indication:INTUBATED Technique: Single frontal view of the chest was obtained COMPARISON: XY CHEST PORTABLE on DOS: 07/08/24, XY CHEST XRAY 1 VIEW on DOS: 07/07/24, XY CHEST EDITH BLE on DOS: 07/05/24 FINDINGS: Lines and Tubes: Endotracheal tube is high in position. Enteric catheter in satisfactory position. Lungs: Multifocal airspace disease most prominent in the left lower lobe. Pleura: No effusion. No pneumothorax. Cardiomediastinal contours: Unremarkable Bones: Unremarkable IMPRESSION: Recommend advancement of endotracheal tube by 2 cm.
[2024-07-09] MEDS: POTASSIUM CHL 20MEQ/100ML 100 ML IV SCH (07:47)
[2024-07-09] MEDS: ACETAMINOPHEN IV 1000 MG/100ML (10MG/ML) IV PRN (08:03)
--- NOTE | 2024-07-09 10:10 | DVHPN2 ---
Subjective More awake and follows commands on C-PAP Changes from previous H/P or p: Changes Eyes: No Pain, No Vision change, No Conjunctivae inflammation, No Eyelid inflammation, No Other, No Redness ENT: No Ear pain, No Ear discharge, No Nose pain, No Nose discharge, No Nose congestion, No Mouth pain, No Mouth swelling, No Throat pain, No Throat swelling, No Other Cardiovascular: No Chest Pain, No Palpitations, No Orthopnea, No Paroxysmal Noc. Dyspnea, No Edema, No Lt Headedness, No Other Respiratory: No Cough, No Dry, No Shortness of breath, No SOB with excertion, No Wheezing, No Hemoptysis, No Pleuritic Pain, No Sputum, No Other Gastrointestinal: No Nausea, No Vomiting, No Abdominal Pain, No Diarrhea, No Constipation, No Melena, No Hematochezia, No Other Genitourinary: No Dysuria, No Frequency, No Incontinence, No Hematuria, No Retention, No Other Musculoskeletal: No other, No neck pain, No shoulder pain, No arm pain, No back pain, No hand pain, No leg pain, No foot pain Skin: No Rash, No Lesions, No Jaundice, No Bruising, No Other Objective Vitals Vital Signs Date Time Temp Pulse Resp B/P (MAP) Pulse Ox O2 Delivery O2 Flow Rate FiO2 07/09/24 07:55 72 14 107/58 (74) 97 30 07/09/24 06:15 99.7 211.5 07/09/24 06:00 Mechanical Ventilator+ Intake/Output Intake and Output 07/09/24 07:00 Intake Total 2093.253 ml Output Total 1650 ml Balance 443.253 ml Intake Oral 1050 ml IV Total 934.253 ml Tube Feeding 109 ml Output Urine Total 1650 ml General Appearance: Alert (Somnolent, off sedation), Cooperative, No acute distress Lungs: Clear to auscultation, Normal air movement Cardiovascular: Regular rate, Normal S1 Abdomen: Normal bowel sounds, Soft, No tenderness Extremities: No edema Medications Current Medications Medications Dose Ordered Sig/Sandra Route Start Time Stop Time Status Last Admin Dose Admin Propofol 100 ml @ 2.181 mls/ hr Q24H IV 07/02/24 22:45 07/06/24 03:35 6.543 MLS/HR Ondansetron HCl 4 mg Q4HP PRN IV 07/02/24 23:15 Nitroglycerin 0.4 mg Q5MINP PRN SL 07/02/24 23:15 Morphine Sulfate 2 mg Q30M PRN IV 07/02/24 23:15 Midazolam HCl 50 ml @ 1 mls/hr Q24H IV 07/03/24 01:15 07/06/24 03:19 4 MLS/HR Vasopressin 20 units/Sodium Chloride 100 ml @ 9 mls/hr Q11H7M IV 07/03/24 10:00 07/05/24 06:49 9 MLS/HR Acetaminophen 650 mg Q6HP PRN GT 07/03/24 12:30 Hold 07/04/24 03:53 650 MG Enoxaparin Sodium 40 mg DAILY SC 07/04/24 10:00 07/08/24 09:10 40 MG Atorvastatin Calcium 40 mg HS GT 07/03/24 22:00 07/08/24 21:49 40 MG Phenylephrine HCl 80 mg/Sodium Chloride 250 ml @ 7.5 mls/hr Q24H IV 07/03/24 15:00 07/03/24 16:00 24.375 MLS/HR Norepinephrine Bitartrate 32 mg/ Sodium Chloride 250 ml @ 0.938 mls/ hr Q24H IV 07/03/24 15:00 07/09/24 00:28 0.938 MLS/HR Acetaminophen 1,000 mg Q8H PRN IV 07/03/24 19:45 07/09/24 08:03 1,000 MG Insulin Glargine 10 units BID@0700,2200 SC 07/03/24 22:00 07/09/24 06:12 10 UNITS Vancomycin HCl 0 ml @ 0 mls/hr UD IV 07/03/24 20:45 Pantoprazole Sodium 40 mg BID IV 07/04/24 22:00 07/08/24 21:49 40 MG Cefepime HCl 50 ml @ 12.5 mls/hr Q8H IV 07/04/24 18:00 07/09/24 02:31 12.5 MLS/HR Diagnostic Test (Pha) 1 strip Q6HR 07/06/24 06:00 07/09/24 05:37 1 STRIP Insulin Human Regular Q6HR SC 07/06/24 06:00 07/09/24 06:12 2 UNITS Dextrose 50 ml UD PRN IV 07/06/24 03:45 Enteral Nutritional Formula 1,000 ml 60ML/HR GT 07/07/24 08:30 07/09/24 06:16 1,000 ML Vancomycin HCl 150 ml @ 150 mls/hr Q8H IV 07/07/24 11:00 07/09/24 01:31 150 MLS/HR Acetylcysteine 200 mg Q8HR NEB 07/08/24 14:00 07/09/24 05:37 200 MG Albuterol 2.5 mg Q4HPRN PRN NEB 07/08/24 13:45 07/09/24 05:37 2.5 MG Dexmedetomidine HCl 400 mcg/ Dextrose 100 ml @ 4 mls/hr Q24H IV 07/08/24 18:00 07/09/24 03:04 14 MLS/HR Fluconazole 100 ml @ 100 mls/hr DAILY@2200 IV 07/08/24 22:00 07/08/24 21:49 100 MLS/HR Purified Water 200 ml Q4HR GT 07/08/24 22:00 07/09/24 06:08 200 ML Fentanyl Citrate 250 ml @ 2.5 mls/hr Q24H IV 07/08/24 22:15 07/08/24 22:19 2.5 MLS/HR Potassium Chloride 100 ml @ 50 mls/hr Q2H IV 07/09/24 06:30 07/09/24 12:29 07/09/24 08:53 50 MLS/HR Laboratory Results Laboratory Tests 07/09/24 03:25 Chemistry Test 07/09/24 03:25 Albumin 3.0 g/dL (3.2-4.8) L Calcium Level 8.8 mg/dL (8.7-10.4) Magnesium Level 2.1 mg/dL (1.6-2.6) Phosphorus Level 3.5 mg/dL (2.4-5.1) Total Protein 6.0 g/dL (5.7-8.2) LFT Test 07/09/24 03:25 Alanine Aminotransferase (ALT) 19 U/L (7-40) Alkaline Phosphatase 98 U/L (46-116) Aspartate Amino Transferase (AST) 27 U/L (13-40) Total Bilirubin 0.4 mg/dL (0.2-1.0) Urinalysis Test 07/02/24 23:08 Urine Color Light-yellow (Yellow) Urine Clarity Clear (Clear) Urine pH 5.0 (5.0-9.0) Urine Specific [place] 1.025 (1.001-1.035) Urine Protein Negative (Negative) Urine Ketones 4+ (Negative) H Urine Blood Negative /uL (Negative) Urine Nitrite Negative (Negative) Urine Bilirubin Negative (Negative) Urine Urobilinogen Normal mg/dL (Negative) Urine Leukocyte Esterase Negative /uL (Negative) Urine RBC <1 /hpf (0 - 3) Urine WBC 1 /hpf (0 - 3) Urine Squamous Epithelial Cells None seen /hpf (<5) Urine Bacteria None seen /hpf (None Seen) Urine Glucose 4+ mg/dL (Normal) H Blood Gas Results Test 07/08/24 14:33 07/08/24 20:00 Arterial Blood pH 7.473 (7.350-7.450) 7.468 (7.350-7.450) FiO2 % 30.0 60.0 Microbiology Microbiology Date/Time Source Procedure Growth Status 07/08/24 18:27 Other Pending Resulted 07/08/24 18:27 Other Pending Resulted 07/08/24 18:27 Other Pending Resulted 07/08/24 18:27 Other Pending Resulted 07/08/24 18:27 Other - Final See Separate Report... Resulted 07/03/24 19:35 Blood Blood Culture - Final Staph hominis subsp homins Complete 07/03/24 16:51 Urine - [place] Urine Culture - Final Escherichia coli Enterococcus faecalis Complete 07/02/24 23:25 Sputum Gram Stain - Final Complete 07/02/24 23:25 Respiratory Culture - Final Staphylococcus aureus Klebsiella pneumoniae Citrobacter youngae Complete Assessment/Plan Assessment/Plan DKA, resolved DM, uncontrolled Acute hypoxic respiratory failure s/p intubation on mechanical ventilator ZOYA Sepsis w septic shock Hypernatremia Fever B feet ulcers Thrombocytopenia due to sepsis, improved PLAN: 07/03/2024: IV fluids, change to 1/2 NS Nephrology consult Vasopressors as needed Blood, urine and sputum cultures IV antibiotics: Empiric, change to Cefepime and Vanco Sedation as needed Start Lantus Full code Discussed with family at the bedside Advance directives discussed with family x 20 minutes 07/04/2024: Diarrhea: Check the stools for C diff ZOYA: Continue IV fluids Hypernatremia: Start free water Sepsis with septic shock: Continue cefepime and vancomycin Hypotension: Vasopressors Uterine cultures and respiratory cultures are Discussed with the family at the bedside Lantus 10 units twice a day Accu-Cheks q.4 hours 07/05/24: Continue IV fluids 1/2 NS Vancomycin + Cefepime Free water Minimize sedation Taper down Levophed Podiatry consult MRSA screen: Negative Lantus Discussed with at the bedside 07/06/24: Hypernatremia: Repeat labs Hypokalemia: Replace Vancomycin and Cefepime Continue free water 09/06/2024: Hypernatremia: Continue free water, start tube feeding with Glucerna , discontinue the IV fluids IV antibiotics: Cefepime and vancomycin Lantus Sliding scale Nephrology consult Pulmonary consult Discussed with the at the bedside Full code 07/08/2024: Continue free water to correct hypernatremia C-PAP trial in progress Wound infection with Staph aureus Sputum culture showed Staph aureus and Klebsiella pneumoniae and Citrobacter Blood culture with Staph home in his Cefepime and vancomycin Endoscopy for today Extubation possibly after bronchoscopy today 07/09/24: Change IV antibiotics to Levaquin and Diflucan Free water Hold sedation C-PAP, extubate? Replace K+ Discussed with at the bedside Plan discussed with: Spouse, Other My Orders Orders - MEHRAN GUERRERO MD Procedure Category Date Status Time Vancomycin,Trough LAB 07/10/24 Verified 10:00 Vancomycin Per ELI 07/08/24 In Process Pharmacy Protoc 12:31 Chest Portable XY 07/09/24 Resulted 06:00 Date of Service: Jul 09, 2024 Billing Provider: MEHRAN GUERRERO MD Common Visit Codes: [id number] INP/OBS CARE(HIGH) MEHRAN GUERRERO MD Jul 09, 2024 10:10
[2024-07-09] MEDS ORDERED: levoFLOXacin 750MG 150 ML IV ONE (10:15)
[2024-07-09 10:39] LABS: Base Excess 3.7 mmol/L (-2.0-3.0)
[2024-07-09] MEDS: levoFLOXacin 500MG 100 ML IV SCH (12:11)
[2024-07-09] MEDS: levoFLOXacin 250MG 50 ML IV SCH (13:17)
[2024-07-09] MEDS ORDERED: POTASSIUM CHL 20MEQ/100ML 100 ML IV ONE (17:15)
[2024-07-09] MEDS: POTASSIUM CHL 20MEQ/100ML 100 ML IV ONE (18:23)
--- NOTE | 2024-07-09 18:42 | DVHPN2 ---
Progress Note - Dictate Date Seen: Jul 09, 2024 Medical Necessity Reason Pt with a Central, PICC or Fol: Yes The following are medically ne: Jesus Catheter Reason for jesus catheter: Strict I&O Subjective Patient seen and examined at bedside. S/p extubation, on supplemental oxygen Overnight events reviewed. vital signs Vital Sign Date Time Temp Pulse Resp B/P (MAP) Pulse Ox O2 Delivery O2 Flow Rate FiO2 07/09/24 18:14 93 21 97 07/09/24 18:06 Nasal Cannula 3.0 07/09/24 18:06 32 07/09/24 10:45 99.9 101/66 (78) 211.8 Total Intake and Output 07/08/24 07/08/24 07/09/24 15:00 23:00 07:00 Intake Total 213 ml 774.190 ml 1124.438 ml Output Total 800 ml 850 ml Balance 213 ml -25.810 ml 274.438 ml medications Current Medications Medications Dose Ordered Sig/Sandra Route Start Time Stop Time Status Last Admin Dose Admin Propofol 100 ml @ 2.181 mls/ hr Q24H IV 07/02/24 22:45 07/06/24 03:35 6.543 MLS/HR Ondansetron HCl 4 mg Q4HP PRN IV 07/02/24 23:15 Nitroglycerin 0.4 mg Q5MINP PRN SL 07/02/24 23:15 Morphine Sulfate 2 mg Q30M PRN IV 07/02/24 23:15 Midazolam HCl 50 ml @ 1 mls/hr Q24H IV 07/03/24 01:15 07/06/24 03:19 4 MLS/HR Acetaminophen 650 mg Q6HP PRN GT 07/03/24 12:30 Hold 07/04/24 03:53 650 MG Enoxaparin Sodium 40 mg DAILY SC 07/04/24 10:00 07/09/24 10:06 40 MG Atorvastatin Calcium 40 mg HS GT 07/03/24 22:00 07/08/24 21:49 40 MG Phenylephrine HCl 80 mg/Sodium Chloride 250 ml @ 7.5 mls/hr Q24H IV 07/03/24 15:00 07/03/24 16:00 24.375 MLS/HR Norepinephrine Bitartrate 32 mg/ Sodium Chloride 250 ml @ 0.938 mls/ hr Q24H IV 07/03/24 15:00 07/09/24 00:28 0.938 MLS/HR Acetaminophen 1,000 mg Q8H PRN IV 07/03/24 19:45 07/09/24 08:03 1,000 MG Insulin Glargine 10 units BID@0700,2200 SC 07/03/24 22:00 07/09/24 06:12 10 UNITS Pantoprazole Sodium 40 mg BID IV 07/04/24 22:00 07/09/24 09:59 40 MG Diagnostic Test (Pha) 1 strip Q6HR 07/06/24 06:00 07/09/24 18:26 1 STRIP Insulin Human Regular Q6HR SC 07/06/24 06:00 07/09/24 06:12 2 UNITS Dextrose 50 ml UD PRN IV 07/06/24 03:45 Enteral Nutritional Formula 1,000 ml 60ML/HR GT 07/07/24 08:30 07/09/24 06:16 1,000 ML Acetylcysteine 200 mg Q8HR NEB 07/08/24 14:00 07/09/24 18:06 200 MG Albuterol 2.5 mg Q4HPRN PRN NEB 07/08/24 13:45 07/09/24 18:06 2.5 MG Dexmedetomidine HCl 400 mcg/ Dextrose 100 ml @ 4 mls/hr Q24H IV 07/08/24 18:00 07/09/24 10:03 14 MLS/HR Fluconazole 100 ml @ 100 mls/hr DAILY@2200 IV 07/08/24 22:00 07/08/24 21:49 100 MLS/HR Purified Water 200 ml Q4HR GT 07/08/24 22:00 07/09/24 10:07 200 ML Fentanyl Citrate 250 ml @ 2.5 mls/hr Q24H IV 07/08/24 22:15 07/08/24 22:19 2.5 MLS/HR Levofloxacin/ Dextrose 100 ml @ 100 mls/hr DAILY@1100 IV 07/09/24 11:00 07/09/24 12:11 100 MLS/HR Levofloxacin 50 ml @ 50 mls/hr DAILY@1200 IV 07/09/24 12:00 07/09/24 13:17 50 MLS/HR Lorazepam 0.5 mg Q4HR PRN IV 07/09/24 14:30 objective Gen.: Patient lying in bed in no apparent distress. On supplemental oxygen. Head: Normocephalic, atraumatic. Eyes: EOMI/PERRLA. Ears: Normal hearing. Normal anatomy. Neck/trachea: Trachea midline, supple. Nose: Normal external anatomy. Mouth: Moist mucous membranes. Chest: Decreased air entry bilaterally. No wheezing or rhonchi. Cardiovascular: Positive S1, positive S2. Regular rate and rhythm. Abdomen: Positive bowel sounds in all 4 quadrants. Soft, non-tender, non- distended. : Deferred. Rectal: Deferred. Skin: Warm, dry. Intact. Extremities: 2+ radial pulses bilaterally. No lower extremity edema. Neuro: Awake, alert, oriented x3. No gross motor or sensory deficits. Cranial nerves II through XII intact. Gait not assessed. laboratory and microbiology Laboratory Tests 07/09/24 13:10 07/09/24 03:25 Test 07/09/24 03:25 Range/Units Serum Glucose 140 H 74-106 mg/dL Assessment/Plan Impression: Acute hypoxic respiratory failure On mechanical ventilator Diabetic ketoacidosis Acute kidney injury Cachexia with a BMI of 1816.8 Events Patient tolerated CPAP and was extubated uneventfully. Currently on 2 LPM NC supplemental oxygen Taper O2 as tolerated Off Precedex Off pressors, hemodynamically stable Tube feeds for nutritional support Continue antibiotics - vancomycin, cefepime. Monitor renal function Monitor electrolytes, supplement as necessary Potassium supplementation Monitor hemoglobin Stool occult blood positive. Monitor WBC Labs and imaging reviewed Rest of plan as noted below Plan: S/p extubation On 2 LPM NC supplemental oxygen Taper O2 as tolerated CT head demonstrates no acute intracranial hemorrhage. CXR, ABG reviewed. Off pressors Continue antibiotics. F/u cultures. Monitor renal function due to Acute kidney injury. Monitor electrolytes. Supplement as necessary. IVF NS at 100mL/hour Insulin drip Accucheks, ISS. GI/DVT prophylaxis. Condition: Critical Prognosis: Poor given multiple comorbidities. Rest of plan per hospitalist and other consultants. A total of 35 minutes of critical care time was spent reviewing the patient record, examining the patient, making a diagnostic and therapeutic plan, discussing this plan with the medical personnel, following up on diagnostic studies and following the patient for clinical stability excluding any and all procedures. At least 50% of this time was spent in direct, [id number]-[id number] contact. Thank you ROOM CLERK Brendan for allowing me to participate in this patient's care. Further recommendations will depend on patient's clinical course. Please do not hesitate to contact me if you have any questions or concerns. This medical document was created using an electronic medical record system with [employer] system. Although this document has been carefully reviewed, there may still be some phonetic and typographical errors. These areas are purely typographical due to imperfections of the software programs, and do not reflect any compromise in the patient's medical care. Dietary Evaluation Review Comments: 1) If GI is preferred route consider Nepro @ 45 ml/hr goal rate as tolerated 2) If pt remains NPO >7 days consider TPN to meet at least 75% of estimated needs 3) Advance pt diet when medically feasible to a CCHO 60g, Renal diet modified per APPLIED EXERCISE PHYSIOLOGIST recommendations 4) Continue current plan of care Expected Outcomes/Goals: 1. Pt will consume >75% of estimated needs within 2-3 days Plan discussed with: Patient, Other (LUKE Aguilar) Critical Care Time(min): 35 NADER ALLEN MD Jul 09, 2024 18:42
[2024-07-09] MEDS: LORazepam 2MG/ML-1ML VIAL IV PRN (19:27)
[2024-07-09] MEDS: EPINEPHrine HCL 0.5 ML NEB NEB ONE (20:23)
[2024-07-09] MEDS: DexAMETHasone SOD PHOS 4 MG/1ML SDV INJ IV SCH (21:30)
[2024-07-09] MEDS: DexAMETHasone SOD PHOS 10MG/1ML VIAL INJ ONE (21:50)
--- NOTE | 2024-07-09 23:45 | DVH ---
EXAM: XY CHEST PORTABLE CLINICAL HISTORY: STRIDOR TECHNIQUE: Single AP view of the chest WID: COMPARISON: XY CHEST PORTABLE on DOS: 07/09/24, FINDINGS: Lines and tubes: Removal of endotracheal tube Chest: The heart size and pulmonary vasculature is within normal limits. Increase in mixed perihilar and bibasilar consolidations. Slight limited depth of inspiration. The osseous structures are grossly intact. IMPRESSION: Limited depth of inspiration with increase in perihilar and medial bibasilar opacities likely atelect asis though pneumonia is a possibility.
[2024-07-10] VITALS (108 sets, daily range): BP systolic 72–140; BP diastolic 40–75; PULSE 73–105; RESP 11–36; TEMP 97.6–99.9; O2SAT 88–100
[2024-07-10 01:10] LABS: Base Excess -1.1 mmol/L (-2.0-3.0)
[2024-07-10 03:55] LABS: Hemoglobin 12.4 g/dL (13.5-17.5); Mean Corpuscular Hemoglobin 29.2 pg (28.0-32.0); Mean Corpuscular Hgb Conc. 32.6 g/dL (32.0-36.0); Mean Corpuscular Volume 89.5 fL (80.0-100.0); Platelet Count (auto) 256 10^3/uL (140-450); Red Blood Cells 4.24 10^6/uL (4.5-5.90); White Blood Cell 15.6 10^3/uL (4.4-10.8)
[2024-07-10 04:02] LABS: Band Neutrophils % (manual) 0; Basophils % (manual) 0 (0.0-2.0); Blast Cells 0; Eosinophils % (manual) 0 (0-7); Metamyelocytes % 0; Myelocytes % 0; Promyelocytes % 0; Reactive Lymphocytes 0
[2024-07-10 04:13] LABS: Alanine Aminotransferase 20 U/L (7-40); Alkaline Phosphatase 101 U/L (46-116); Anion Gap 10 (5-15); Blood Urea Nitrogen 9 mg/dL (9-23); Calcium 8.7 mg/dL (8.7-10.4); Carbon Dioxide 25 mmol/L (20-31); Chloride 115 mmol/L (98-107); Glucose 162 mg/dL (74-106); Magnesium 2.1 mg/dL (1.6-2.6); Potassium 3.2 mmol/L (3.5-5.1); Sodium 150 mmol/L (136-145)
[2024-07-10 04:14] LABS: Albumin 2.8 g/dL (3.2-4.8); Aspartate Aminotransferase 26 U/L (13-40)
[2024-07-10 04:15] LABS: Bilirubin, Total 0.3 mg/dL (0.2-1.0); Total Protein 5.6 g/dL (5.7-8.2)
[2024-07-10] MEDS: EPINEPHrine HCL 0.5 ML NEB NEB ONE (04:19)
[2024-07-10 04:58] LABS: Lymphocytes % (manual) 2 (10.0-50.0); Monocytes % (manual) 1 (0-12); Platelet Estimate Adequate; Smudge Cells 1 /100 WBC
[2024-07-10] MEDS: LEVALBUTEROL HCL 1.25 MG/3 ML NEB NEB SCH (06:19)
[2024-07-10] MEDS: POTASSIUM CHL 20MEQ/100ML 100 ML IV ONE ×2 (06:59→11:33)
[2024-07-10] MEDS ORDERED: levoFLOXacin 750MG 150 ML IV SCH (10:00)
[2024-07-10] MEDS ORDERED: levoFLOXacin 750MG 150 ML IV ONE (11:00)
[2024-07-10] MEDS: MORPHINE SULFATE INJ 2 MG/ml SYRG IV PRN (11:34)
--- NOTE | 2024-07-10 13:12 | DVHPN2 ---
Subjective A, O x 3 3 liters NC Changes from previous H/P or p: Changes Eyes: No Pain, No Vision change, No Conjunctivae inflammation, No Eyelid inflammation, No Other, No Redness ENT: No Ear pain, No Ear discharge, No Nose pain, No Nose discharge, No Nose congestion, No Mouth pain, No Mouth swelling, No Throat pain, No Throat swelling, No Other Cardiovascular: No Chest Pain, No Palpitations, No Orthopnea, No Paroxysmal Noc. Dyspnea, No Edema, No Lt Headedness, No Other Respiratory: No Cough, No Dry, No Shortness of breath, No SOB with excertion, No Wheezing, No Hemoptysis, No Pleuritic Pain, No Sputum, No Other Gastrointestinal: No Nausea, No Vomiting, No Abdominal Pain, No Diarrhea, No Constipation, No Melena, No Hematochezia, No Other Genitourinary: No Dysuria, No Frequency, No Incontinence, No Hematuria, No Retention, No Other Musculoskeletal: No other, No neck pain, No shoulder pain, No arm pain, No back pain, No hand pain, No leg pain, No foot pain Skin: No Rash, No Lesions, No Jaundice, No Bruising, No Other Objective Vitals Vital Signs Date Time Temp Pulse Resp B/P (MAP) Pulse Ox O2 Delivery O2 Flow Rate FiO2 07/10/24 12:00 99.9 85 11 88/53 (65) 97 211.8 07/10/24 10:16 Nasal Cannula* 2 28 Intake/Output Intake and Output 07/10/24 07:00 Intake Total 944.190 ml Output Total 2400 ml Balance -1455.810 ml Intake Oral 200 ml IV Total 744.190 ml Output Urine Total 2400 ml General Appearance: Alert (Somnolent, off sedation), Cooperative, No acute distress Lungs: Clear to auscultation, Normal air movement Cardiovascular: Regular rate, Normal S1 Abdomen: Normal bowel sounds, Soft, No tenderness Extremities: No edema Medications Current Medications Medications Dose Ordered Sig/Sadnra Route Start Time Stop Time Status Last Admin Dose Admin Ondansetron HCl 4 mg Q4HP PRN IV 07/02/24 23:15 Nitroglycerin 0.4 mg Q5MINP PRN SL 07/02/24 23:15 Morphine Sulfate 2 mg Q30M PRN IV 07/02/24 23:15 Midazolam HCl 50 ml @ 1 mls/hr Q24H IV 07/03/24 01:15 07/06/24 03:19 4 MLS/HR Acetaminophen 650 mg Q6HP PRN GT 07/03/24 12:30 Hold 07/04/24 03:53 650 MG Enoxaparin Sodium 40 mg DAILY SC 07/04/24 10:00 07/10/24 08:35 40 MG Atorvastatin Calcium 40 mg HS GT 07/03/24 22:00 07/08/24 21:49 40 MG Phenylephrine HCl 80 mg/Sodium Chloride 250 ml @ 7.5 mls/hr Q24H IV 07/03/24 15:00 07/03/24 16:00 24.375 MLS/HR Norepinephrine Bitartrate 32 mg/ Sodium Chloride 250 ml @ 0.938 mls/ hr Q24H IV 07/03/24 15:00 07/09/24 00:28 0.938 MLS/HR Acetaminophen 1,000 mg Q8H PRN IV 07/03/24 19:45 07/09/24 08:03 1,000 MG Insulin Glargine 10 units BID@0700,2200 NV 07/03/24 22:00 07/10/24 09:22 10 UNITS Pantoprazole Sodium 40 mg BID IV 07/04/24 22:00 07/10/24 08:34 40 MG Diagnostic Test (Pha) 1 strip Q6HR 07/06/24 06:00 07/10/24 11:14 1 STRIP Insulin Human Regular Q6HR SC 07/06/24 06:00 07/10/24 06:00 3 UNITS Dextrose 50 ml UD PRN IV 07/06/24 03:45 Enteral Nutritional Formula 1,000 ml 60ML/HR GT 07/07/24 08:30 07/09/24 06:16 1,000 ML Acetylcysteine 200 mg Q8HR NEB 07/08/24 14:00 07/10/24 06:19 200 MG Dexmedetomidine HCl 400 mcg/ Dextrose 100 ml @ 4 mls/hr Q24H IV 07/08/24 18:00 07/10/24 06:13 6 MLS/HR Fluconazole 100 ml @ 100 mls/hr DAILY@2200 IV 07/08/24 22:00 07/09/24 21:30 100 MLS/HR Purified Water 200 ml Q4HR GT 07/08/24 22:00 07/09/24 10:07 200 ML Fentanyl Citrate 250 ml @ 2.5 mls/hr Q24H IV 07/08/24 22:15 07/08/24 22:19 2.5 MLS/HR Lorazepam 0.5 mg Q4HR PRN IV 07/09/24 14:30 07/10/24 03:28 0.5 MG Dexamethasone Sodium Phosphate 6 mg Q6H IV 07/09/24 21:30 07/10/24 15:31 07/10/24 08:34 6 MG Levalbuterol HCl 0.625 mg Q4HWA NEB 07/10/24 06:00 07/10/24 10:11 0.625 MG Morphine Sulfate 2 mg Q4HPRN PRN IV 07/10/24 11:00 07/10/24 11:34 2 MG Levofloxacin/ Dextrose 150 ml @ 100 mls/hr DAILY IV 07/11/24 10:00 Laboratory Results Laboratory Tests 07/10/24 03:01 Chemistry Test 07/10/24 03:01 Albumin 2.8 g/dL (3.2-4.8) L Calcium Level 8.7 mg/dL (8.7-10.4) Magnesium Level 2.1 mg/dL (1.6-2.6) Total Protein 5.6 g/dL (5.7-8.2) L LFT Test 07/10/24 03:01 Alanine Aminotransferase (ALT) 20 U/L (7-40) Alkaline Phosphatase 101 U/L (46-116) Aspartate Amino Transferase (AST) 26 U/L (13-40) Total Bilirubin 0.3 mg/dL (0.2-1.0) Urinalysis Test 07/02/24 23:08 Urine Color Light-yellow (Yellow) Urine Clarity Clear (Clear) Urine pH 5.0 (5.0-9.0) Urine Specific [place] 1.025 (1.001-1.035) Urine Protein Negative (Negative) Urine Ketones 4+ (Negative) H Urine Blood Negative /uL (Negative) Urine Nitrite Negative (Negative) Urine Bilirubin Negative (Negative) Urine Urobilinogen Normal mg/dL (Negative) Urine Leukocyte Esterase Negative /uL (Negative) Urine RBC <1 /hpf (0 - 3) Urine WBC 1 /hpf (0 - 3) Urine Squamous Epithelial Cells None seen /hpf (<5) Urine Bacteria None seen /hpf (None Seen) Urine Glucose 4+ mg/dL (Normal) H Blood Gas Results Test 07/09/24 23:50 Arterial Blood pH 7.313 (7.350-7.450) FiO2 % 32.0 Microbiology Microbiology Date/Time Source Procedure Growth Status 07/08/24 18:27 Other Pending Resulted 07/08/24 18:27 Other Pending Resulted 07/08/24 18:27 Other Pending Resulted 07/08/24 18:27 Other Pending Resulted 07/08/24 18:27 Other - Final See Separate Report... Resulted 07/08/24 18:27 Bronchial Washings Gram Stain - Final Resulted 07/08/24 18:27 Respiratory Culture - Preliminary Staphylococcus aureus Resulted 07/03/24 19:35 Blood Blood Culture - Final Staph hominis subsp homins Complete 07/03/24 16:51 Urine - [place] Urine Culture - Final Escherichia coli Enterococcus faecalis Complete Assessment/Plan Assessment/Plan DKA, resolved DM, uncontrolled Acute hypoxic respiratory failure s/p intubation on mechanical ventilator ZOYA Sepsis w septic shock Hypernatremia Fever B feet ulcers Thrombocytopenia due to sepsis, improved PLAN: 07/03/2024: IV fluids, change to 1/2 NS Nephrology consult Vasopressors as needed Blood, urine and sputum cultures IV antibiotics: Empiric, change to Cefepime and Vanco Sedation as needed Start Lantus Full code Discussed with family at the bedside Advance directives discussed with family x 20 minutes 07/04/2024: Diarrhea: Check the stools for C diff ZOYA: Continue IV fluids Hypernatremia: Start free water Sepsis with septic shock: Continue cefepime and vancomycin Hypotension: Vasopressors Uterine cultures and respiratory cultures are Discussed with the family at the bedside Lantus 10 units twice a day Accu-Cheks q.4 hours 07/05/24: Continue IV fluids 1/2 NS Vancomycin + Cefepime Free water Minimize sedation Taper down Levophed Podiatry consult MRSA screen: Negative Lantus Discussed with at the bedside 07/06/24: Hypernatremia: Repeat labs Hypokalemia: Replace Vancomycin and Cefepime Continue free water 09/06/2024: Hypernatremia: Continue free water, start tube feeding with Glucerna , discontinue the IV fluids IV antibiotics: Cefepime and vancomycin Lantus Sliding scale Nephrology consult Pulmonary consult Discussed with the at the bedside Full code 07/08/2024: Continue free water to correct hypernatremia C-PAP trial in progress Wound infection with Staph aureus Sputum culture showed Staph aureus and Klebsiella pneumoniae and Citrobacter Blood culture with Staph home in his Cefepime and vancomycin Endoscopy for today Extubation possibly after bronchoscopy today 07/09/24: Change IV antibiotics to Levaquin and Diflucan Free water Hold sedation C-PAP, extubate? Replace K+ Discussed with at the bedside 07/10/24: Start IV D5W Swallow eval PT eval IS Out of bed Suction IV Levaquin IV Diflucan Levophed, taper as tolerated Discussed with and sister at the bedside Plan discussed with: Patient, Spouse, Other My Orders Orders - MEHRAN GUERRERO MD Procedure Category Date Status Time * Swallow Request ST 07/09/24 Transmitted 14:22 Lorazepam 2mg/Ml Inj PHA 07/09/24 In Process (Ativan Inj) 14:30 Chest Portable XY 07/10/24 Taken 10:18 Morphine Sulfate PHA 07/10/24 In Process Injection 11:00 Nasal Tracheal Suction RT 07/10/24 Logged 10:59 Levofloxacin 750mg PHA 07/11/24 In Process (Levaquin) 10:00 Chest Percussion Tx RT 07/10/24 Logged Initi 11:14 Pt Request For Service PT 07/10/24 Transmitted 12:54 D/C [place] 07/10/24 Transmitted 12:54 * Swallow Request ST 07/10/24 Transmitted 12:54 D5w 5% PHA 07/10/24 Transmitted 13:00 Date of Service: Jul 10, 2024 Billing Provider: MEHRAN GUERRERO MD Common Visit Codes: [id number] INP/OBS CARE(HIGH) MEHRAN GUERRERO MD Jul 10, 2024 13:12
--- NOTE | 2024-07-10 13:20 | DVH ---
EXAM: XY CHEST PORTABLE TECHNIQUE: Single frontal chest radiograph CLINICAL HISTORY: INCREASED WORK OF BREATHING COMPARISON: XY CHEST PORTABLE on DOS: 07/09/24, XY CHEST PORTABLE on DOS: 07/09/24, XY CHEST PORTABLE on DOS: 07/08/24 Findings/Impression: Frontal chest radiograph demonstrates no acute osseous or superficial soft tissue abnormalities. The trachea is midline. The cardiac silhouette and mediastinum are within normal limits. Marked low lung volumes with bronchovascular crowding, similar to slightly worse from prior. Superimp osed pulmonary vascular congestion, edema, or infection not excluded. No pneumothorax or pleural effusions.
[2024-07-10] MEDS: D5W 5% 1,000 ML IV SCH (14:01)
[2024-07-10] MEDS: levoFLOXacin 500MG 100 ML IV ONE (14:02)
[2024-07-10] MEDS: levoFLOXacin 250MG 50 ML IV ONE (14:08)
[2024-07-10] MEDS ORDERED: DEXTROSE (50%) 50ML SYRG IV PRN (16:45)
[2024-07-10] MEDS: InsuLIN REG 1unit/0.01ml Soln (100units/ml) SC SCH ×2 (17:11→20:03)
[2024-07-10] MEDS: ACCU-CHEK COMFORT CURVE STRIP VI SCH (20:02)
[2024-07-10] MEDS ORDERED: DexAMETHasone SOD PHOS 4 MG/1ML SDV INJ IV SCH (21:00)
--- NOTE | 2024-07-10 22:13 | DVHPN2 ---
Progress Note - Dictate Date Seen: Jul 10, 2024 Medical Necessity Reason Pt with a Central, PICC or Fol: Yes The following are medically ne: Jesus Catheter Reason for jesus catheter: Strict I&O Subjective Patient seen and examined at bedside. S/p extubation, on supplemental oxygen Overnight events reviewed. vital signs Vital Sign Date Time Temp Pulse Resp B/P (MAP) Pulse Ox O2 Delivery O2 Flow Rate FiO2 07/10/24 18:35 92 24 98 07/10/24 18:30 97/53 (68) 07/10/24 18:25 Nasal Cannula 3.0 07/10/24 18:25 32 07/10/24 17:30 98.4 209.1 Total Intake and Output 07/09/24 07/09/24 07/10/24 14:59 22:59 06:59 Intake Total 472.814 ml 331.875 ml 148.938 ml Output Total 1425 ml 975 ml Balance 472.814 ml -1093.125 ml -826.062 ml medications Current Medications Medications Dose Ordered Sig/Sandra Route Start Time Stop Time Status Last Admin Dose Admin Ondansetron HCl 4 mg Q4HP PRN IV 07/02/24 23:15 Nitroglycerin 0.4 mg Q5MINP PRN SL 07/02/24 23:15 Morphine Sulfate 2 mg Q30M PRN IV 07/02/24 23:15 Midazolam HCl 50 ml @ 1 mls/hr Q24H IV 07/03/24 01:15 07/06/24 03:19 4 MLS/HR Acetaminophen 650 mg Q6HP PRN GT 07/03/24 12:30 Hold 07/04/24 03:53 650 MG Enoxaparin Sodium 40 mg DAILY SC 07/04/24 10:00 07/10/24 08:35 40 MG Atorvastatin Calcium 40 mg HS GT 07/03/24 22:00 07/08/24 21:49 40 MG Phenylephrine HCl 80 mg/Sodium Chloride 250 ml @ 7.5 mls/hr Q24H IV 07/03/24 15:00 07/03/24 16:00 24.375 MLS/HR Norepinephrine Bitartrate 32 mg/ Sodium Chloride 250 ml @ 0.938 mls/ hr Q24H IV 07/03/24 15:00 07/09/24 00:28 0.938 MLS/HR Acetaminophen 1,000 mg Q8H PRN IV 07/03/24 19:45 07/09/24 08:03 1,000 MG Insulin Glargine 10 units BID@0700,2200 SC 07/03/24 22:00 07/10/24 09:22 10 UNITS Pantoprazole Sodium 40 mg BID IV 07/04/24 22:00 07/10/24 08:34 40 MG Enteral Nutritional Formula 1,000 ml 60ML/HR GT 07/07/24 08:30 07/09/24 06:16 1,000 ML Acetylcysteine 200 mg Q8HR NEB 07/08/24 14:00 07/10/24 18:26 200 MG Dexmedetomidine HCl 400 mcg/ Dextrose 100 ml @ 4 mls/hr Q24H IV 07/08/24 18:00 Hold 07/10/24 06:13 6 MLS/HR Fluconazole 100 ml @ 100 mls/hr DAILY@2200 IV 07/08/24 22:00 07/09/24 21:30 100 MLS/HR Purified Water 200 ml Q4HR GT 07/08/24 22:00 07/09/24 10:07 200 ML Fentanyl Citrate 250 ml @ 2.5 mls/hr Q24H IV 07/08/24 22:15 07/08/24 22:19 2.5 MLS/HR Lorazepam 0.5 mg Q4HR PRN IV 07/09/24 14:30 07/10/24 03:28 0.5 MG Levalbuterol HCl 0.625 mg Q4HWA NEB 07/10/24 06:00 07/10/24 18:25 0.625 MG Morphine Sulfate 2 mg Q4HPRN PRN IV 07/10/24 11:00 07/10/24 11:34 2 MG Dextrose 1,000 ml @ 100 mls/hr Q10H IV 07/10/24 13:00 07/10/24 14:01 100 MLS/HR Levofloxacin/ Dextrose 100 ml @ 100 mls/hr DAILY IV 07/11/24 10:00 Levofloxacin 50 ml @ 50 mls/hr DAILY IV 07/11/24 10:00 Dexmedetomidine HCl 400 mcg/ Dextrose 100 ml @ 3.855 mls/ hr Q24H IV 07/10/24 14:00 Diagnostic Test (Pha) 1 strip IQ4HR 07/10/24 20:00 07/10/24 20:02 1 STRIP Dextrose 50 ml UD PRN IV 07/10/24 16:45 Insulin Human Regular IQ4HR SC 07/10/24 20:00 07/10/24 20:03 6 UNITS objective Gen.: Patient lying in bed in no apparent distress. On supplemental oxygen. Head: Normocephalic, atraumatic. Eyes: EOMI/PERRLA. Ears: Normal hearing. Normal anatomy. Neck/trachea: Trachea midline, supple. Nose: Normal external anatomy. Mouth: Moist mucous membranes. Chest: Decreased air entry bilaterally. No wheezing or rhonchi. Cardiovascular: Positive S1, positive S2. Regular rate and rhythm. Abdomen: Positive bowel sounds in all 4 quadrants. Soft, non-tender, non- distended. : Deferred. Rectal: Deferred. Skin: Warm, dry. Intact. Extremities: 2+ radial pulses bilaterally. No lower extremity edema. Neuro: Awake, alert, oriented x3. No gross motor or sensory deficits. Cranial nerves II through XII intact. Gait not assessed. laboratory and microbiology Laboratory Tests 07/10/24 03:01 Test 07/10/24 03:01 Range/Units Serum Glucose 162 H 74-106 mg/dL Assessment/Plan Impression: Acute hypoxic respiratory failure On mechanical ventilator Diabetic ketoacidosis Acute kidney injury Cachexia with a BMI of 1816.8 Events Remains on 3 LPM NC supplemental oxygen Taper O2 as tolerated Precedex drip. Levophed tapered off at 1600. Coarse thick secretions noted NTS Swallow eval. Continue antibiotics/Diflucan IV steroids Decadron Pain control/anxiolytic - IV morphine/Ativan Avoid oversedation D5W at 100 ml/hr due to hypernatremia. Tube feeds for nutritional support Monitor renal function Monitor electrolytes, supplement as necessary Potassium supplementation Monitor hemoglobin Stool occult blood positive. Monitor WBC Labs and imaging reviewed Rest of plan as noted below Plan: S/p extubation On 3 LPM NC supplemental oxygen Taper O2 as tolerated CT head demonstrates no acute intracranial hemorrhage. CXR, ABG reviewed. Off pressors Continue antibiotics. F/u cultures. Monitor renal function due to Acute kidney injury. Monitor electrolytes. Supplement as necessary. IVF NS at 100mL/hour Insulin drip Accucheks, ISS. GI/DVT prophylaxis. Condition: Critical Prognosis: Poor given multiple comorbidities. Rest of plan per hospitalist and other consultants. A total of 35 minutes of critical care time was spent reviewing the patient record, examining the patient, making a diagnostic and therapeutic plan, discussing this plan with the medical personnel, following up on diagnostic studies and following the patient for clinical stability excluding any and all procedures. At least 50% of this time was spent in direct, [id number] contact. Thank you IZAIAH Cardona for allowing me to participate in this patient's care. Further recommendations will depend on patient's clinical course. Please do not hesitate to contact me if you have any questions or concerns. This medical document was created using an electronic medical record system with [employer] dictation system. Although this document has been carefully reviewed, there may still be some phonetic and typographical errors. These areas are purely typographical due to imperfections of the software programs, and do not reflect any compromise in the patient's medical care. Dietary Evaluation Review Comments: 1) If GI is preferred route consider Nepro @ 45 ml/hr goal rate as tolerated 2) If pt remains NPO >7 days consider TPN to meet at least 75% of estimated needs 3) Advance pt diet when medically feasible to a CCHO 60g, Renal diet modified per PEDIATRIC NP recommendations 4) Continue current plan of care Expected Outcomes/Goals: 1. Pt will consume >75% of estimated needs within 2-3 days Plan discussed with: Other (LUKE Hines) Critical Care Time(min): 35 NADER ALLEN MD Jul 10, 2024 22:13
[2024-07-11] VITALS (50 sets, daily range): BP systolic 95–143; BP diastolic 39–76; PULSE 51–106; RESP 16–30; TEMP 98.1–98.8; O2SAT 87–100
[2024-07-11 04:17] LABS: Basophils # (auto) 0 10 ^3/uL (0-0.2); Eosinophils # (auto) 0 10 ^3/uL (0-0.8); Hematocrit 34.3 % (41.0-53.0); Hemoglobin 11.3 g/dL (13.5-17.5); Lymphocytes # (auto) 0.6 10 ^3/uL (0.4-5.4); Lymphocytes % (auto) 4.6 % (10.0-50.0); Mean Corpuscular Hemoglobin 29.5 pg (28.0-32.0); Mean Corpuscular Volume 89.2 fL (80.0-100.0); Monocytes # (auto) 0.4 10 ^3/uL (0-1.3); Monocytes % (auto) 2.9 % (0.0-12.0); Neutrophils # (auto) 11.9 10 ^3/uL (1.6-8.6); Neutrophils % (auto) 92.5 % (37.0-80.0); Platelet Count (auto) 356 10^3/uL (140-450); Red Blood Cells 3.84 10^6/uL (4.5-5.90); Red Cell Distribution Width 14.7 % (11.8-14.3); White Blood Cell 12.9 10^3/uL (4.4-10.8)
[2024-07-11 04:33] LABS: Alanine Aminotransferase 19 U/L (7-40); Albumin 2.9 g/dL (3.2-4.8); Alkaline Phosphatase 109 U/L (46-116); Anion Gap 13 (5-15); Aspartate Aminotransferase 16 U/L (13-40); BUN/Creatinine Ratio 19.8 (10.0-20.0); Bilirubin, Total 0.4 mg/dL (0.2-1.0); Blood Urea Nitrogen 16 mg/dL (9-23); Calcium 8.8 mg/dL (8.7-10.4); Carbon Dioxide 23 mmol/L (20-31); Chloride 114 mmol/L (98-107); Glucose 214 mg/dL (74-106); Potassium 3.4 mmol/L (3.5-5.1); Sodium 150 mmol/L (136-145); Total Protein 5.8 g/dL (5.7-8.2)
--- NOTE | 2024-07-11 05:52 | DVH ---
CHEST RADIOGRAPH Indication:SOB Technique: Single frontal view of the chest was obtained Comparison: XY CHEST PORTABLE on DOS: 07/10/24, XY CHEST PORTABLE on DOS: 07/09/24, XY CHEST PORTABLE on DOS: 07/09/24 IMPRESSION:There are low lung volumes with prominent cardiomediastinal silhouette and moderate pulmon caridad vascular congestion, edema, similar to prior examination. No sizable effusion or pneumothorax. HS:Y
[2024-07-11] MEDS: POTASSIUM CHL 20MEQ/100ML 100 ML IV ONE (06:22)
[2024-07-11] MEDS: levoFLOXacin 250MG 50 ML IV SCH (09:16)
[2024-07-11] MEDS: levoFLOXacin 500MG 100 ML IV SCH (09:57)
[2024-07-11] MEDS ORDERED: levoFLOXacin 750MG 150 ML IV SCH (10:00)
[2024-07-11] MEDS: ONDANSETRON HCL 4 MG/2 ML VIAL IV PRN (12:34)
--- NOTE | 2024-07-11 17:34 | DVHPN2 ---
Subjective In bed resting, oriented x3 Changes from previous H/P or p: No Changes Eyes: No Pain, No Vision change, No Conjunctivae inflammation, No Eyelid inflammation, No Other, No Redness ENT: No Ear pain, No Ear discharge, No Nose pain, No Nose discharge, No Nose congestion, No Mouth pain, No Mouth swelling, No Throat pain, No Throat swelling, No Other Cardiovascular: No Chest Pain, No Palpitations, No Orthopnea, No Paroxysmal Noc. Dyspnea, No Edema, No Lt Headedness, No Other Respiratory: No Cough, No Dry, No Shortness of breath, No SOB with excertion, No Wheezing, No Hemoptysis, No Pleuritic Pain, No Sputum, No Other Gastrointestinal: No Nausea, No Vomiting, No Abdominal Pain, No Diarrhea, No Constipation, No Melena, No Hematochezia, No Other Genitourinary: No Dysuria, No Frequency, No Incontinence, No Hematuria, No Retention, No Other Musculoskeletal: No other, No neck pain, No shoulder pain, No arm pain, No back pain, No hand pain, No leg pain, No foot pain Skin: No Rash, No Lesions, No Jaundice, No Bruising, No Other Objective Vitals Vital Signs Date Time Temp Pulse Resp B/P (MAP) Pulse Ox O2 Delivery O2 Flow Rate FiO2 07/11/24 17:05 86 22 111/65 07/11/24 16:00 98 Nasal Cannula* 3 32 07/11/24 12:00 98.6 98.6 Intake/Output Intake and Output 07/11/24 05:00 Intake Total 1815.444 ml Output Total 2375 ml Balance -559.556 ml Intake Oral 0 ml IV Total 1815.444 ml Output Urine Total 2375 ml General Appearance: Alert (Somnolent, off sedation), Oriented X3, Cooperative, No acute distress Lungs: Clear to auscultation, Normal air movement Cardiovascular: Regular rate, Normal S1 Abdomen: Normal bowel sounds, Soft, No tenderness Extremities: No edema Medications Current Medications Medications Dose Ordered Sig/Sandra Route Start Time Stop Time Status Last Admin Dose Admin Ondansetron HCl 4 mg Q4HP PRN IV 07/02/24 23:15 07/11/24 12:34 4 MG Nitroglycerin 0.4 mg Q5MINP PRN SL 07/02/24 23:15 Morphine Sulfate 2 mg Q30M PRN IV 07/02/24 23:15 Midazolam HCl 50 ml @ 1 mls/hr Q24H IV 07/03/24 01:15 07/06/24 03:19 4 MLS/HR Acetaminophen 650 mg Q6HP PRN GT 07/03/24 12:30 Hold 07/04/24 03:53 650 MG Enoxaparin Sodium 40 mg DAILY SC 07/04/24 10:00 07/11/24 09:16 40 MG Atorvastatin Calcium 40 mg HS GT 07/03/24 22:00 07/08/24 21:49 40 MG Phenylephrine HCl 80 mg/Sodium Chloride 250 ml @ 7.5 mls/hr Q24H IV 07/03/24 15:00 07/03/24 16:00 24.375 MLS/HR Norepinephrine Bitartrate 32 mg/ Sodium Chloride 250 ml @ 0.938 mls/ hr Q24H IV 07/03/24 15:00 07/09/24 00:28 0.938 MLS/HR Acetaminophen 1,000 mg Q8H PRN IV 07/03/24 19:45 07/09/24 08:03 1,000 MG Insulin Glargine 10 units BID@0700,2200 SC 07/03/24 22:00 07/11/24 06:42 10 UNITS Pantoprazole Sodium 40 mg BID IV 07/04/24 22:00 07/11/24 09:16 40 MG Enteral Nutritional Formula 1,000 ml 60ML/HR GT 07/07/24 08:30 07/09/24 06:16 1,000 ML Acetylcysteine 200 mg Q8HR NEB 07/08/24 14:00 07/11/24 14:00 200 MG Fluconazole 100 ml @ 100 mls/hr DAILY@2200 IV 07/08/24 22:00 07/10/24 22:16 100 MLS/HR Purified Water 200 ml Q4HR GT 07/08/24 22:00 07/11/24 14:22 200 ML Fentanyl Citrate 250 ml @ 2.5 mls/hr Q24H IV 07/08/24 22:15 07/08/24 22:19 2.5 MLS/HR Lorazepam 0.5 mg Q4HR PRN IV 07/09/24 14:30 07/10/24 03:28 0.5 MG Levalbuterol HCl 0.625 mg Q4HWA NEB 07/10/24 06:00 07/11/24 14:00 0.625 MG Morphine Sulfate 2 mg Q4HPRN PRN IV 07/10/24 11:00 07/11/24 16:35 2 MG Dextrose 1,000 ml @ 100 mls/hr Q10H IV 07/10/24 13:00 07/11/24 00:08 100 MLS/HR Levofloxacin/ Dextrose 100 ml @ 100 mls/hr DAILY IV 07/11/24 10:00 07/11/24 09:57 100 MLS/HR Levofloxacin 50 ml @ 50 mls/hr DAILY IV 07/11/24 10:00 07/11/24 09:16 50 MLS/HR Dexmedetomidine HCl 400 mcg/ Dextrose 100 ml @ 3.855 mls/ hr Q24H IV 07/10/24 14:00 Diagnostic Test (Pha) 1 strip IQ4HR 07/10/24 20:00 07/11/24 15:27 1 STRIP Dextrose 50 ml UD PRN IV 07/10/24 16:45 Insulin Human Regular IQ4HR SC 07/10/24 20:00 07/11/24 15:29 6 UNITS Laboratory Results Laboratory Tests 07/11/24 03:18 Chemistry Test 07/11/24 03:18 Albumin 2.9 g/dL (3.2-4.8) L Calcium Level 8.8 mg/dL (8.7-10.4) Magnesium Level 2.0 mg/dL (1.6-2.6) Total Protein 5.8 g/dL (5.7-8.2) LFT Test 07/11/24 03:18 Alanine Aminotransferase (ALT) 19 U/L (7-40) Alkaline Phosphatase 109 U/L (46-116) Aspartate Amino Transferase (AST) 16 U/L (13-40) Total Bilirubin 0.4 mg/dL (0.2-1.0) Urinalysis Test 07/02/24 23:08 Urine Color Light-yellow (Yellow) Urine Clarity Clear (Clear) Urine pH 5.0 (5.0-9.0) Urine Specific [place] 1.025 (1.001-1.035) Urine Protein Negative (Negative) Urine Ketones 4+ (Negative) H Urine Blood Negative /uL (Negative) Urine Nitrite Negative (Negative) Urine Bilirubin Negative (Negative) Urine Urobilinogen Normal mg/dL (Negative) Urine Leukocyte Esterase Negative /uL (Negative) Urine RBC <1 /hpf (0 - 3) Urine WBC 1 /hpf (0 - 3) Urine Squamous Epithelial Cells None seen /hpf (<5) Urine Bacteria None seen /hpf (None Seen) Urine Glucose 4+ mg/dL (Normal) H Microbiology Microbiology Date/Time Source Procedure Growth Status 07/08/24 18:27 Other Pending Resulted 07/08/24 18:27 Other Pending Resulted 07/08/24 18:27 Other Pending Resulted 07/08/24 18:27 Other Pending Resulted 07/08/24 18:27 Other - Final See Separate Report... Resulted 07/08/24 18:27 Bronchial Washings Gram Stain - Final Complete 07/08/24 18:27 Respiratory Culture - Final Staphylococcus aureus Stenotrophomonas maltophilia Complete 07/03/24 19:35 Blood Blood Culture - Final Staph hominis subsp homins Complete 07/03/24 16:51 Urine - [place] Urine Culture - Final Escherichia coli Enterococcus faecalis Complete Assessment/Plan Assessment/Plan DKA, resolved DM, uncontrolled Acute hypoxic respiratory failure s/p intubation on mechanical ventilator ZOYA Sepsis w septic shock Hypernatremia Fever B feet ulcers Thrombocytopenia due to sepsis, improved PLAN: 07/03/2024: IV fluids, change to 1/2 NS Nephrology consult Vasopressors as needed Blood, urine and sputum cultures IV antibiotics: Empiric, change to Cefepime and Vanco Sedation as needed Start Lantus Full code Discussed with family at the bedside Advance directives discussed with family x 20 minutes 07/04/2024: Diarrhea: Check the stools for C diff OZYA: Continue IV fluids Hypernatremia: Start free water Sepsis with septic shock: Continue cefepime and vancomycin Hypotension: Vasopressors Uterine cultures and respiratory cultures are Discussed with the family at the bedside Lantus 10 units twice a day Accu-Cheks q.4 hours 07/05/24: Continue IV fluids 1/2 NS Vancomycin + Cefepime Free water Minimize sedation Taper down Levophed Podiatry consult MRSA screen: Negative Lantus Discussed with at the bedside 07/06/24: Hypernatremia: Repeat labs Hypokalemia: Replace Vancomycin and Cefepime Continue free water 09/06/2024: Hypernatremia: Continue free water, start tube feeding with Glucerna , discontinue the IV fluids IV antibiotics: Cefepime and vancomycin Lantus Sliding scale Nephrology consult Pulmonary consult Discussed with the at the bedside Full code 07/08/2024: Continue free water to correct hypernatremia C-PAP trial in progress Wound infection with Staph aureus Sputum culture showed Staph aureus and Klebsiella pneumoniae and Citrobacter Blood culture with Staph home in his Cefepime and vancomycin Endoscopy for today Extubation possibly after bronchoscopy today 07/09/24: Change IV antibiotics to Levaquin and Diflucan Free water Hold sedation C-PAP, extubate? Replace K+ Discussed with at the bedside 07/10/24: Start IV D5W Swallow eval PT eval IS Out of bed Suction IV Levaquin IV Diflucan Levophed, taper as tolerated 07/11 Start IV D5W Swallow eval PT eval IS Out of bed Suction IV Levaquin IV Diflucan off levophed Plan discussed with: Spouse My Orders Orders - PEDRO LEE MD Procedure Category Date Status Time Transfer Orders XFER 07/11/24 Transmitted 15:56 Date of Service: Jul 11, 2024 Billing Provider: PEDRO LEE MD Common Visit Codes: [id number] CARE 30-74 MIN PEDRO LEE MD Jul 11, 2024 17:34
--- NOTE | 2024-07-11 23:52 | DVHPN2 ---
Progress Note - Dictate Date Seen: Jul 11, 2024 Medical Necessity Reason Pt with a Central, PICC or Fol: Yes The following are medically ne: Jesus Catheter Reason for jesus catheter: Strict I&O Subjective Patient seen and examined at bedside. S/p extubation, on supplemental oxygen Overnight events reviewed. vital signs Vital Sign Date Time Temp Pulse Resp B/P (MAP) Pulse Ox O2 Delivery O2 Flow Rate FiO2 07/11/24 22:24 82 18 108/64 100 2.0 07/11/24 22:00 Nasal Cannula* 32 07/11/24 20:00 98.8 98.8 Total Intake and Output 07/10/24 07/10/24 07/11/24 15:00 23:00 07:00 Intake Total 137.378 ml 955.625 ml 934.565 ml Output Total 1400 ml 1450 ml Balance 137.378 ml -444.375 ml -515.435 ml medications Current Medications Medications Dose Ordered Sig/Sandra Route Start Time Stop Time Status Last Admin Dose Admin Ondansetron HCl 4 mg Q4HP PRN IV 07/02/24 23:15 07/11/24 18:36 4 MG Nitroglycerin 0.4 mg Q5MINP PRN SL 07/02/24 23:15 Morphine Sulfate 2 mg Q30M PRN IV 07/02/24 23:15 Midazolam HCl 50 ml @ 1 mls/hr Q24H IV 07/03/24 01:15 07/06/24 03:19 4 MLS/HR Acetaminophen 650 mg Q6HP PRN GT 07/03/24 12:30 Hold 07/04/24 03:53 650 MG Enoxaparin Sodium 40 mg DAILY SC 07/04/24 10:00 07/11/24 09:16 40 MG Atorvastatin Calcium 40 mg HS GT 07/03/24 22:00 07/08/24 21:49 40 MG Phenylephrine HCl 80 mg/Sodium Chloride 250 ml @ 7.5 mls/hr Q24H IV 07/03/24 15:00 07/03/24 16:00 24.375 MLS/HR Norepinephrine Bitartrate 32 mg/ Sodium Chloride 250 ml @ 0.938 mls/ hr Q24H IV 07/03/24 15:00 07/09/24 00:28 0.938 MLS/HR Acetaminophen 1,000 mg Q8H PRN IV 07/03/24 19:45 07/09/24 08:03 1,000 MG Insulin Glargine 10 units BID@0700,2200 SC 07/03/24 22:00 07/11/24 21:29 10 UNITS Pantoprazole Sodium 40 mg BID IV 07/04/24 22:00 07/11/24 21:29 40 MG Enteral Nutritional Formula 1,000 ml 60ML/HR GT 07/07/24 08:30 07/09/24 06:16 1,000 ML Acetylcysteine 200 mg Q8HR NEB 07/08/24 14:00 07/11/24 22:10 200 MG Fluconazole 100 ml @ 100 mls/hr DAILY@2200 IV 07/08/24 22:00 07/11/24 21:29 100 MLS/HR Purified Water 200 ml Q4HR GT 07/08/24 22:00 07/11/24 17:43 200 ML Fentanyl Citrate 250 ml @ 2.5 mls/hr Q24H IV 07/08/24 22:15 07/08/24 22:19 2.5 MLS/HR Lorazepam 0.5 mg Q4HR PRN IV 07/09/24 14:30 07/10/24 03:28 0.5 MG Levalbuterol HCl 0.625 mg Q4HWA [facility] 07/10/24 06:00 07/11/24 22:10 0.625 MG Morphine Sulfate 2 mg Q4HPRN PRN IV 07/10/24 11:00 07/11/24 21:27 2 MG Dextrose 1,000 ml @ 100 mls/hr Q10H IV 07/10/24 13:00 07/11/24 17:33 100 MLS/HR Levofloxacin/ Dextrose 100 ml @ 100 mls/hr DAILY IV 07/11/24 10:00 07/11/24 09:57 100 MLS/HR Levofloxacin 50 ml @ 50 mls/hr DAILY IV 07/11/24 10:00 07/11/24 09:16 50 MLS/HR Dexmedetomidine HCl 400 mcg/ Dextrose 100 ml @ 3.855 mls/ hr Q24H IV 07/10/24 14:00 Diagnostic Test (Pha) 1 strip IQ4HR 07/10/24 20:00 07/11/24 19:59 1 STRIP Dextrose 50 ml UD PRN IV 07/10/24 16:45 Insulin Human Regular IQ4HR SC 07/10/24 20:00 07/11/24 20:02 3 UNITS objective Gen.: Patient lying in bed in no apparent distress. On supplemental oxygen. Head: Normocephalic, atraumatic. Eyes: EOMI/PERRLA. Ears: Normal hearing. Normal anatomy. Neck/trachea: Trachea midline, supple. Nose: Normal external anatomy. Mouth: Moist mucous membranes. Chest: Decreased air entry bilaterally. No wheezing or rhonchi. Cardiovascular: Positive S1, positive S2. Regular rate and rhythm. Abdomen: Positive bowel sounds in all 4 quadrants. Soft, non-tender, non- distended. : Deferred. Rectal: Deferred. Skin: Warm, dry. Intact. Extremities: 2+ radial pulses bilaterally. No lower extremity edema. Neuro: Awake, alert, oriented x3. No gross motor or sensory deficits. Cranial nerves II through XII intact. Gait not assessed. laboratory and microbiology Laboratory Tests 07/11/24 03:18 Test 07/11/24 03:18 Range/Units Serum Glucose 214 H 74-106 mg/dL Assessment/Plan Impression: Acute hypoxic respiratory failure Diabetic ketoacidosis Acute kidney injury Cachexia with a BMI of 1816.8 Events Remains on 3 LPM NC supplemental oxygen Taper O2 as tolerated Continue antibiotics IV steroids Incentive spirometry Pain control/anxiolytic PRN Avoid oversedation D5W at 100 ml/hr due to hypernatremia. Tube feeds for nutritional support Monitor renal function Monitor electrolytes, supplement as necessary Monitor hemoglobin Stool occult blood positive. Monitor WBC Patient is awaiting telemetry bed. Labs and imaging reviewed Rest of plan as noted below Plan: S/p extubation On 3 LPM NC supplemental oxygen Taper O2 as tolerated CT head demonstrates no acute intracranial hemorrhage. CXR, ABG reviewed. Off pressors Continue antibiotics. F/u cultures. Monitor renal function due to Acute kidney injury. Monitor electrolytes. Supplement as necessary. IVF NS at 100mL/hour Insulin drip Accucheks, ISS. GI/DVT prophylaxis. Prognosis: Guarded given multiple comorbidities. Rest of plan per hospitalist and other consultants. Thank you IZAIAH Cardona for allowing me to participate in this patient's care. Further recommendations will depend on patient's clinical course. Please do not hesitate to contact me if you have any questions or concerns. This medical document was created using an electronic medical record system with [employer] dictation system. Although this document has been carefully reviewed, there may still be some phonetic and typographical errors. These areas are purely typographical due to imperfections of the software programs, and do not reflect any compromise in the patient's medical care. Dietary Evaluation Review Comments: 1) If GI is preferred route consider Nepro @ 45 ml/hr goal rate as tolerated 2) If pt remains NPO >7 days consider TPN to meet at least 75% of estimated needs 3) Advance pt diet when medically feasible to a CCHO 60g, Renal diet modified per [employer]ELOPER recommendations 4) Continue current plan of care Expected Outcomes/Goals: 1. Pt will consume >75% of estimated needs within 2-3 days Plan discussed with: Patient, Other (RN Shwetha) NADER ALLEN MD Jul 11, 2024 23:52
[2024-07-12] VITALS (35 sets, daily range): BP systolic 110–133; BP diastolic 67–78; PULSE 77–103; RESP 17–35; TEMP 98.4–99.6; O2SAT 92–100
[2024-07-12] MEDS: methylPREDNISolone SOD SUCC 125 MG/2 ML VL IV ONE (03:01)
[2024-07-12 03:57] LABS: Alanine Aminotransferase 16 U/L (7-40); Albumin 2.7 g/dL (3.2-4.8); Alkaline Phosphatase 87 U/L (46-116); Anion Gap 7 (5-15); Aspartate Aminotransferase 15 U/L (13-40); BUN/Creatinine Ratio 16.4 (10.0-20.0); Bilirubin, Total 0.4 mg/dL (0.2-1.0); Blood Urea Nitrogen 9 mg/dL (9-23); Calcium 8.5 mg/dL (8.7-10.4); Carbon Dioxide 29 mmol/L (20-31); Chloride 107 mmol/L (98-107); Glucose 143 mg/dL (74-106); Potassium 3.4 mmol/L (3.5-5.1); Sodium 143 mmol/L (136-145)
[2024-07-12 03:58] LABS: Total Protein 5.5 g/dL (5.7-8.2)
[2024-07-12] MEDS: EPINEPHrine HCL 0.5 ML NEB NEB ONE ×2 (04:20→11:47)
[2024-07-12 04:29] LABS: Basophils # (auto) 0 10 ^3/uL (0-0.2); Basophils % (auto) 0.2 % (0.0-2.0); Eosinophils # (auto) 0 10 ^3/uL (0-0.8); Hematocrit 32.4 % (41.0-53.0); Lymphocytes # (auto) 0.4 10 ^3/uL (0.4-5.4); Lymphocytes % (auto) 3.7 % (10.0-50.0); Mean Corpuscular Hemoglobin 30.2 pg (28.0-32.0); Mean Corpuscular Hgb Conc. 33.9 g/dL (32.0-36.0); Monocytes # (auto) 0.2 10 ^3/uL (0-1.3); Monocytes % (auto) 2.2 % (0.0-12.0); Neutrophils # (auto) 10.3 10 ^3/uL (1.6-8.6); Neutrophils % (auto) 93.9 % (37.0-80.0); Platelet Count (auto) 308 10^3/uL (140-450); Red Blood Cells 3.64 10^6/uL (4.5-5.90); White Blood Cell 10.9 10^3/uL (4.4-10.8)
--- NOTE | 2024-07-12 05:02 | DVH ---
CHEST RADIOGRAPH Indication:respiratory failure Technique: Single frontal view of the chest was obtained Comparison: XY CHEST PORTABLE on DOS: 07/11/24 FINDINGS: Lines and Tubes: None Lungs: Bilateral central predominant pulmonary opacities. Pleura: No effusion. No pneumothorax. Cardiomediastinal contours: Unremarkable Bones: No acute osseous abnormality. IMPRESSION: 1. Bilateral central predominant opacities similar to prior study compatible with edema.
[2024-07-12 06:47] LABS: Base Excess 3.4 mmol/L (-2.0-3.0)
[2024-07-12] MEDS: POTASSIUM EFFERVESENT TAB 25 MEQ PO ONE (08:38)
[2024-07-12] MEDS: FUROSEMIDE 40 MG/4 ML VIAL IV ONE (08:38)
--- NOTE | 2024-07-12 08:39 | DVHPN2 ---
Subjective A, O x 3 On 4 L Oxymizer Changes from previous H/P or p: Changes Eyes: No Pain, No Vision change, No Conjunctivae inflammation, No Eyelid inflammation, No Other, No Redness ENT: No Ear pain, No Ear discharge, No Nose pain, No Nose discharge, No Nose congestion, No Mouth pain, No Mouth swelling, No Throat pain, No Throat swelling, No Other Cardiovascular: No Chest Pain, No Palpitations, No Orthopnea, No Paroxysmal Noc. Dyspnea, No Edema, No Lt Headedness, No Other Respiratory: No Cough, No Dry, No Shortness of breath, No SOB with excertion, No Wheezing, No Hemoptysis, No Pleuritic Pain, No Sputum, No Other Gastrointestinal: No Nausea, No Vomiting, No Abdominal Pain, No Diarrhea, No Constipation, No Melena, No Hematochezia, No Other Genitourinary: No Dysuria, No Frequency, No Incontinence, No Hematuria, No Retention, No Other Musculoskeletal: No other, No neck pain, No shoulder pain, No arm pain, No back pain, No hand pain, No leg pain, No foot pain Skin: No Rash, No Lesions, No Jaundice, No Bruising, No Other Objective Vitals Vital Signs Date Time Temp Pulse Resp B/P (MAP) Pulse Ox O2 Delivery O2 Flow Rate FiO2 07/12/24 06:35 96 32 98 07/12/24 06:29 Nasal Cannula 3.0 07/12/24 06:29 32 07/12/24 04:00 98.4 112/68 (83) 98.4 Intake/Output Intake and Output 07/12/24 07:00 Intake Total 3058.3 ml Output Total 1750 ml Balance 1308.3 ml Intake Oral 600 ml IV Total 2458.3 ml Output Urine Total 1750 ml General Appearance: Alert (Somnolent, off sedation), Oriented X3, Cooperative, No acute distress Lungs: Clear to auscultation, Normal air movement Chest/Breasts: Other (Bilateral rhonchi and crackles diffusely) Cardiovascular: Regular rate, Normal S1 Abdomen: Normal bowel sounds, Soft, No tenderness Extremities: No edema Medications Current Medications Medications Dose Ordered Sig/Sandra Route Start Time Stop Time Status Last Admin Dose Admin Ondansetron HCl 4 mg Q4HP PRN IV 07/02/24 23:15 07/12/24 08:06 4 MG Nitroglycerin 0.4 mg Q5MINP PRN SL 07/02/24 23:15 Midazolam HCl 50 ml @ 1 mls/hr Q24H IV 07/03/24 01:15 07/06/24 03:19 4 MLS/HR Acetaminophen 650 mg Q6HP PRN GT 07/03/24 12:30 Hold 07/04/24 03:53 650 MG Enoxaparin Sodium 40 mg DAILY SC 07/04/24 10:00 07/11/24 09:16 40 MG Atorvastatin Calcium 40 mg HS GT 07/03/24 22:00 07/08/24 21:49 40 MG Phenylephrine HCl 80 mg/Sodium Chloride 250 ml @ 7.5 mls/hr Q24H IV 07/03/24 15:00 07/03/24 16:00 24.375 MLS/HR Norepinephrine Bitartrate 32 mg/ Sodium Chloride 250 ml @ 0.938 mls/ hr Q24H IV 07/03/24 15:00 07/09/24 00:28 0.938 MLS/HR Acetaminophen 1,000 mg Q8H PRN IV 07/03/24 19:45 07/09/24 08:03 1,000 MG Insulin Glargine 10 units BID@0700,2200 SC 07/03/24 22:00 07/11/24 21:29 10 UNITS Pantoprazole Sodium 40 mg BID IV 07/04/24 22:00 07/11/24 21:29 40 MG Enteral Nutritional Formula 1,000 ml 60ML/HR GT 07/07/24 08:30 07/09/24 06:16 1,000 ML Acetylcysteine 200 mg Q8HR NEB 07/08/24 14:00 07/12/24 06:29 200 MG Fluconazole 100 ml @ 100 mls/hr DAILY@2200 IV 07/08/24 22:00 07/11/24 21:29 100 MLS/HR Purified Water 200 ml Q4HR GT 07/08/24 22:00 07/11/24 17:43 200 ML Fentanyl Citrate 250 ml @ 2.5 mls/hr Q24H IV 07/08/24 22:15 07/08/24 22:19 2.5 MLS/HR Lorazepam 0.5 mg Q4HR PRN IV 07/09/24 14:30 07/11/24 23:54 0.5 MG Levalbuterol HCl 0.625 mg Q4HWA NEB 07/10/24 06:00 07/12/24 06:29 0.625 MG Morphine Sulfate 2 mg Q4HPRN PRN IV 07/10/24 11:00 07/11/24 21:27 2 MG Levofloxacin/ Dextrose 100 ml @ 100 mls/hr DAILY IV 07/11/24 10:00 07/11/24 09:57 100 MLS/HR Levofloxacin 50 ml @ 50 mls/hr DAILY IV 07/11/24 10:00 07/11/24 09:16 50 MLS/HR Dexmedetomidine HCl 400 mcg/ Dextrose 100 ml @ 3.855 mls/ hr Q24H IV 07/10/24 14:00 Diagnostic Test (Pha) 1 strip IQ4HR 07/10/24 20:00 07/12/24 08:05 1 STRIP Dextrose 50 ml UD PRN IV 07/10/24 16:45 Insulin Human Regular IQ4HR SC 07/10/24 20:00 07/12/24 08:06 6 UNITS Laboratory Results Laboratory Tests 07/12/24 03:13 07/12/24 04:18 Chemistry Test 07/12/24 03:13 Albumin 2.7 g/dL (3.2-4.8) L Calcium Level 8.5 mg/dL (8.7-10.4) L Total Protein 5.5 g/dL (5.7-8.2) L LFT Test 07/12/24 03:13 Alanine Aminotransferase (ALT) 16 U/L (7-40) Alkaline Phosphatase 87 U/L (46-116) Aspartate Amino Transferase (AST) 15 U/L (13-40) Total Bilirubin 0.4 mg/dL (0.2-1.0) Urinalysis Test 07/02/24 23:08 Urine Color Light-yellow (Yellow) Urine Clarity Clear (Clear) Urine pH 5.0 (5.0-9.0) Urine Specific [place] 1.025 (1.001-1.035) Urine Protein Negative (Negative) Urine Ketones 4+ (Negative) H Urine Blood Negative /uL (Negative) Urine Nitrite Negative (Negative) Urine Bilirubin Negative (Negative) Urine Urobilinogen Normal mg/dL (Negative) Urine Leukocyte Esterase Negative /uL (Negative) Urine RBC <1 /hpf (0 - 3) Urine WBC 1 /hpf (0 - 3) Urine Squamous Epithelial Cells None seen /hpf (<5) Urine Bacteria None seen /hpf (None Seen) Urine Glucose 4+ mg/dL (Normal) H Blood Gas Results Test 07/12/24 06:40 Arterial Blood pH 7.431 (7.350-7.450) FiO2 % 32.0 Microbiology Microbiology Date/Time Source Procedure Growth Status 07/08/24 18:27 Other Pending Resulted 07/08/24 18:27 Other Pending Resulted 07/08/24 18:27 Other Pending Resulted 07/08/24 18:27 Other Pending Resulted 07/08/24 18:27 Other - Final See Separate Report... Resulted 07/08/24 18:27 Bronchial Washings Gram Stain - Final Complete 07/08/24 18:27 Respiratory Culture - Final Staphylococcus aureus Stenotrophomonas maltophilia Complete 07/03/24 19:35 Blood Blood Culture - Final Staph hominis subsp homins Complete 07/03/24 16:51 Urine - [place] Urine Culture - Final Escherichia coli Enterococcus faecalis Complete Assessment/Plan Assessment/Plan DKA, resolved DM, uncontrolled Acute hypoxic respiratory failure s/p intubation on mechanical ventilator ZOYA Sepsis w septic shock Hypernatremia Fever B feet ulcers Thrombocytopenia due to sepsis, improved PLAN: 07/03/2024: IV fluids, change to 1/2 NS Nephrology consult Vasopressors as needed Blood, urine and sputum cultures IV antibiotics: Empiric, change to Cefepime and Vanco Sedation as needed Start Lantus Full code Discussed with family at the bedside Advance directives discussed with family x 20 minutes 07/04/2024: Diarrhea: Check the stools for C diff ZOYA: Continue IV fluids Hypernatremia: Start free water Sepsis with septic shock: Continue cefepime and vancomycin Hypotension: Vasopressors Uterine cultures and respiratory cultures are Discussed with the family at the bedside Lantus 10 units twice a day Accu-Cheks q.4 hours 07/05/24: Continue IV fluids 1/2 NS Vancomycin + Cefepime Free water Minimize sedation Taper down Levophed Podiatry consult MRSA screen: Negative Lantus Discussed with at the bedside 07/06/24: Hypernatremia: Repeat labs Hypokalemia: Replace Vancomycin and Cefepime Continue free water 09/06/2024: Hypernatremia: Continue free water, start tube feeding with Glucerna , discontinue the IV fluids IV antibiotics: Cefepime and vancomycin Lantus Sliding scale Nephrology consult Pulmonary consult Discussed with the at the bedside Full code 07/08/2024: Continue free water to correct hypernatremia C-PAP trial in progress Wound infection with Staph aureus Sputum culture showed Staph aureus and Klebsiella pneumoniae and Citrobacter Blood culture with Staph home in his Cefepime and vancomycin Endoscopy for today Extubation possibly after bronchoscopy today 07/09/24: Change IV antibiotics to Levaquin and Diflucan Free water Hold sedation C-PAP, extubate? Replace K+ Discussed with at the bedside 07/10/24: Start IV D5W Swallow eval PT eval IS Out of bed Suction IV Levaquin IV Diflucan Levophed, taper as tolerated Discussed with and sister at the bedside 07/12/2024: Due to fluid overload, chest x-ray shows congestion: DC the IV fluids, Lasix IV 40 mg x 1, Hypokalemia: Replace p.o. DC the Torres Out of bed as tolerated Physical therapy IV antibiotics: Levofloxacin and Diflucan Off the Levophed drip Plan discussed with: Patient, Spouse My Orders Orders - MEHRAN GUERRERO MD Procedure Category Date Status Time * Swallow Request ST 07/11/24 Transmitted 11:17 Pureed DIET 07/11/24 Transmitted Lunch Date of Service: Jul 12, 2024 Billing Provider: MEHRAN GUERRERO MD Common Visit Codes: 50961-[id number] CARE 30-74 MIN MEHRAN GUERRERO MD Jul 12, 2024 08:39
[2024-07-12] MEDS: FAMOTIDINE 20 MG TAB PO SCH (09:27)
[2024-07-12 10:45] LABS: Base Excess 7.9 mmol/L (-2.0-3.0)
[2024-07-12] MEDS: POTASSIUM CHLORIDE 40 MEQ, LIDOCAINE 1% (LOCAL ANESTH.) 4 ML in SODIUM CHL 0.9% 250 ML IV ONE (10:45)
--- NOTE | 2024-07-12 11:40 | MEDREC ---
[facility] ASP Intervention Section I [facility] ASP Intervention: Review courses of therapy (PLEASE CONSIDER ADDING BACTRIM TO COVER FOR STENOTROPHOMONAS MALTOPHILIA FOUND IN THE BRONCHIAL WASHING CULTURE ) HARRISON POLLOCK PHARMACIST Jul 12, 2024 11:40
[2024-07-12] MEDS: FAMOTIDINE (10MG/ML) 2ML VL IV SCH (11:41)
[2024-07-12] MEDS: PANTOPRAZOLE 40 MG/10 ML VIAL INJ IV SCH (13:51)
[2024-07-12] MEDS: IOHEXOL 300 MG/ML 100ML BOTTLE IJ ONE ×2 (16:25→16:41)
--- NOTE | 2024-07-12 17:04 | DVH ---
EXAM: CT NECK WITH CONTRAST SOFT HISTORY: RESPIRATORY DISTRESS COMPARISON: None TECHNIQUE: Axial images were obtained and reformatted in coronal and sagittal planes. All CT scans at this medical facility are performed using dose modulation techniques as appropriate t o a performed exam including the following: Automated exposure control was utilized; adjustment of th e MA and/or KV according to patient size; and use of iterative reconstruction technique. CT Dose: CTDI volume is 18.68 mGy. Dose-length product is 642.4 mGy*cm FINDINGS: Paranasal sinuses pneumatized and clear. No masses in the nasopharynx tonsillar pillars or tongue base No salivary gland masses. No enlarged lymph nodes The vocal cords are symmetric in size shape and appearance. No masses in the thyroid gland. No compromise of the trachea in the neck. Lung apices are clear. IMPRESSION: 1. No acute process in the neck. 2. No airway compromise
--- NOTE | 2024-07-12 17:18 | DVH ---
Exam: CT CT CHEST/AB/PL W CON- IV ONLY History: RESPIRATORY DISTRESS Comparison Study: None available at time of dictation. TECHNIQUE: Multiple axial CT images of the chest, abdomen and pelvis with IV contrast. 100 cc of Omn ipaque 300 contrast was injected intravenously. All CT scans at this medical facility are performed using dose modulation techniques as appropriate t o a performed exam including the following:Automated exposure control was utilized; adjustment of the MA and/or KV according to patient size; and use of iterative reconstruction technique. Radiation Dose Information: CT Dose: CTDI volume is 12.05 mGy. Dose-length product is 863.85 mGy*cm FINDINGS: There are bilateral pleural effusions, [id number]. There are opacities in the posterior bilateral lower lobes which may represent atelectasis versus airspace disease. There are additional p atchy opacities in the left upper lobe which may represent developing airspace disease. There is cardiomegaly. There is small amount of pericardial fluid. There is no evidence of a mediastinal mass or lymphadenopathy. There is no obvious hilar or axillary lymphadenopathy. Gallbladder is distended without evidence of gallstones. There is no significant biliary ductal dilat ation. The liver, pancreas, kidneys, adrenal glands, and spleen appear within normal limits. There is no evidence of abdominal lymphadenopathy. There is small amount of ascites. The small and large bowel loops demonstrate normal caliber and appear within normal limits. The stom ach grossly appears within normal limits. The abdominal aorta and IVC appear within normal limits. There is a Torres catheter in the bladder which is poorly filled. Prostate gland appears within normal limits. There is no evidence of a pelvic mass or lymphadenopathy. There is small amount of fluid wit hin pelvis. There is no acute osseous abnormality. There is edema in the abdominal wall soft tissues. IMPRESSION: 1. There are findings likely related to congestive heart failure with fluid overload.. There are bila teral pleural effusions, [id number]. There is small amount of fluid in the abdomen and p tereso. There is edema in the soft tissues. 2. Opacities in the posterior bilateral lower lobes which may represent atelectasis versus airspace d isease such as pulmonary edema. There are additional patchy opacities in the left upper lobe which ma y represent developing airspace disease. 3. Distended gallbladder without evidence of gallstones. HS:Y
--- NOTE | 2024-07-12 21:24 | DVHPN2 ---
Progress Note - Dictate Date Seen: Jul 12, 2024 Medical Necessity Reason Pt with a Central, PICC or Fol: Yes The following are medically ne: Jesus Catheter Reason for jesus catheter: Strict I&O Subjective Patient seen and examined at bedside. On BiPAP Overnight events reviewed. vital signs Vital Sign Date Time Temp Pulse Resp B/P (MAP) Pulse Ox O2 Delivery O2 Flow Rate FiO2 07/12/24 20:04 92 110/67 97 07/12/24 20:00 99.1 22 99.1 07/12/24 18:26 Facial BiPAP Mask 60 07/12/24 16:00 4 Total Intake and Output 07/11/24 07/11/24 07/12/24 15:00 23:00 07:00 Intake Total 950 ml 1400.0 ml 708.3 ml Output Total 700 ml 1050 ml Balance 950 ml 700.0 ml -341.7 ml medications Current Medications Medications Dose Ordered Sig/Sandra Route Start Time Stop Time Status Last Admin Dose Admin Ondansetron HCl 4 mg Q4HP PRN IV 07/02/24 23:15 07/12/24 14:53 4 MG Nitroglycerin 0.4 mg Q5MINP PRN SL 07/02/24 23:15 Acetaminophen 650 mg Q6HP PRN GT 07/03/24 12:30 Hold 07/04/24 03:53 650 MG Enoxaparin Sodium 40 mg DAILY SC 07/04/24 10:00 07/12/24 09:27 40 MG Atorvastatin Calcium 40 mg HS GT 07/03/24 22:00 07/08/24 21:49 40 MG Insulin Glargine 10 units BID@0700,2200 SC 07/03/24 22:00 07/11/24 21:29 10 UNITS Enteral Nutritional Formula 1,000 ml 60ML/HR GT 07/07/24 08:30 07/09/24 06:16 1,000 ML Acetylcysteine 200 mg Q8HR NEB 07/08/24 14:00 07/12/24 13:53 200 MG Fluconazole 100 ml @ 100 mls/hr DAILY@2200 IV 07/08/24 22:00 07/11/24 21:29 100 MLS/HR Lorazepam 0.5 mg Q4HR PRN IV 07/09/24 14:30 07/11/24 23:54 0.5 MG Levalbuterol HCl 0.625 mg Q4HWA NEB 07/10/24 06:00 07/12/24 18:26 0.625 MG Morphine Sulfate 2 mg Q4HPRN PRN IV 07/10/24 11:00 07/12/24 14:56 2 MG Levofloxacin/ Dextrose 100 ml @ 100 mls/hr DAILY IV 07/11/24 10:00 07/12/24 10:39 100 MLS/HR Levofloxacin 50 ml @ 50 mls/hr DAILY IV 07/11/24 10:00 07/12/24 09:26 50 MLS/HR Diagnostic Test (Pha) 1 strip IQ4HR 07/10/24 20:00 07/12/24 20:49 1 STRIP Dextrose 50 ml UD PRN IV 07/10/24 16:45 Insulin Human Regular IQ4HR SC 07/10/24 20:00 07/12/24 20:56 3 UNITS Pantoprazole Sodium 40 mg DAILY IV 07/12/24 13:45 07/12/24 13:51 40 MG objective Gen.: Patient lying in bed in no apparent distress. On BiPAP. Head: Normocephalic, atraumatic. Eyes: EOMI/PERRLA. Ears: Normal hearing. Normal anatomy. Neck/trachea: Trachea midline, supple. Nose: Normal external anatomy. Mouth: Moist mucous membranes. Chest: Decreased air entry bilaterally. No wheezing or rhonchi. Cardiovascular: Positive S1, positive S2. Regular rate and rhythm. Abdomen: Positive bowel sounds in all 4 quadrants. Soft, non-tender, non- distended. : Deferred. Rectal: Deferred. Skin: Warm, dry. Intact. Extremities: 2+ radial pulses bilaterally. No lower extremity edema. Neuro: Awake, alert, oriented x3. No gross motor or sensory deficits. Cranial nerves II through XII intact. Gait not assessed. laboratory and microbiology Laboratory Tests 07/12/24 04:18 07/12/24 03:13 Test 07/12/24 03:13 Range/Units Serum Glucose 143 H 74-106 mg/dL Assessment/Plan Impression: Acute hypoxic respiratory failure Diabetic ketoacidosis Acute kidney injury Cachexia with a BMI of 1816.8 Events Patient developed respiratory distress and stridor this AM. BiPAP started, IPAP 12, EPAP 5 and FiO2 60% EPAP was increased to 8 Taper as tolerated IV steroids Racemic epinephrine given. Continue antibiotics Received Lasix - good UOP Monitor renal function Monitor electrolytes, supplement as necessary Potassium supplementation Pain control/anxiolytic PRN Avoid oversedation D5W at 100 ml/hr due to hypernatremia. Tube feeds for nutritional support Monitor hemoglobin Stool occult blood positive. Monitor WBC updated at bedside. Patient is awaiting telemetry bed. Labs and imaging reviewed Rest of plan as noted below Plan: S/p extubation BiPAP with IPAP 12, EPAP 8 and FiO2 60% CT head demonstrates no acute intracranial hemorrhage. CXR, ABG reviewed. Off pressors Continue antibiotics. F/u cultures. Monitor renal function due to Acute kidney injury. Monitor electrolytes. Supplement as necessary. IVF NS at 100mL/hour Insulin drip Accucheks, ISS. GI/DVT prophylaxis. Prognosis: Guarded given multiple comorbidities. Condition: Critical Rest of plan per hospitalist and other consultants. A total of 35 minutes of critical care time was spent reviewing the patient record, examining the patient, making a diagnostic and therapeutic plan, discussing this plan with the medical personnel, following up on diagnostic studies and following the patient for clinical stability excluding any and all procedures. At least 50% of this time was spent in direct, [id number] contact. Thank you CARAMEL CUTTER MACHINE Brendan for allowing me to participate in this patient's care. Further recommendations will depend on patient's clinical course. Please do not hesitate to contact me if you have any questions or concerns. This medical document was created using an electronic medical record system with [employer] dictation system. Although this document has been carefully reviewed, there may still be some phonetic and typographical errors. These areas are purely typographical due to imperfections of the software programs, and do not reflect any compromise in the patient's medical care. Dietary Evaluation Review Comments: 1) If GI is preferred route consider Nepro @ 45 ml/hr goal rate as tolerated 2) If pt remains NPO >7 days consider TPN to meet at least 75% of estimated needs 3) Advance pt diet when medically feasible to a CCHO 60g, Renal diet modified per [employer] LABORATORY MANAGER recommendations 4) Continue current plan of care Expected Outcomes/Goals: 1. Pt will consume >75% of estimated needs within 2-3 days Plan discussed with: Spouse, Other (LUKE Cervantes) Critical Care Time(min): 35 NADER ALLEN MD Jul 12, 2024 21:24
[2024-07-13] VITALS (55 sets, daily range): BP systolic 78–161; BP diastolic 43–87; PULSE 79–108; RESP 16–40; TEMP 97.9–99.8; O2SAT 91–99
[2024-07-13 03:42] LABS: Basophils # (auto) 0 10 ^3/uL (0-0.2); Basophils % (auto) 0.1 % (0.0-2.0); Eosinophils # (auto) 0 10 ^3/uL (0-0.8); Hematocrit 33.2 % (41.0-53.0); Hemoglobin 10.9 g/dL (13.5-17.5); Lymphocytes # (auto) 0.7 10 ^3/uL (0.4-5.4); Lymphocytes % (auto) 8.3 % (10.0-50.0); Mean Corpuscular Hemoglobin 29.3 pg (28.0-32.0); Mean Corpuscular Hgb Conc. 32.9 g/dL (32.0-36.0); Mean Corpuscular Volume 89.1 fL (80.0-100.0); Monocytes # (auto) 0.4 10 ^3/uL (0-1.3); Neutrophils # (auto) 7.4 10 ^3/uL (1.6-8.6); Neutrophils % (auto) 86.6 % (37.0-80.0); Platelet Count (auto) 322 10^3/uL (140-450); Red Blood Cells 3.73 10^6/uL (4.5-5.90); Red Cell Distribution Width 13.8 % (11.8-14.3); White Blood Cell 8.6 10^3/uL (4.4-10.8)
[2024-07-13 03:53] LABS: Alanine Aminotransferase 15 U/L (7-40); Albumin 2.8 g/dL (3.2-4.8); Alkaline Phosphatase 106 U/L (46-116); Anion Gap 5 (5-15); Aspartate Aminotransferase 13 U/L (13-40); BUN/Creatinine Ratio 20.5 (10.0-20.0); Bilirubin, Total 0.6 mg/dL (0.2-1.0); Blood Urea Nitrogen 9 mg/dL (9-23); Calcium 8.7 mg/dL (8.7-10.4); Carbon Dioxide 34 mmol/L (20-31); Chloride 106 mmol/L (98-107); Glucose 92 mg/dL (74-106); Magnesium 1.9 mg/dL (1.6-2.6); Potassium 3.3 mmol/L (3.5-5.1); Sodium 145 mmol/L (136-145); Total Protein 5.9 g/dL (5.7-8.2)
--- NOTE | 2024-07-13 04:39 | DVH ---
CHEST RADIOGRAPH Indication:RESPIRATORY FAILURE Technique: Single frontal view of the chest was obtained Comparison: XY CHEST PORTABLE on DOS: 07/12/24 FINDINGS: Lines and Tubes: None Lungs: Bilateral opacities are unchanged. Pleura: No effusion. No pneumothorax. Cardiomediastinal contours: Unremarkable Bones: No acute osseous abnormality. IMPRESSION: 1. No significant change in bilateral opacities.
[2024-07-13] MEDS: POTASSIUM CHL 20MEQ/100ML 100 ML IV ONE (05:11)
[2024-07-13] MEDS ORDERED: PROPOFOL 100 ML IV SCH (08:00)
[2024-07-13] MEDS: FUROSEMIDE 40 MG/4 ML VIAL IV ONE (09:31)
--- NOTE | 2024-07-13 09:56 | DVHPN2 ---
Subjective He is still having Inspiratory rhonchi and wheezes He is on 3 L Oxymizer Chest x-ray and CT scan of the chest shows fluid overload and congestion diffusely CT scan of the abdomen shows also possible distended gallbladder The patient denies abdominal pain He had some abdominal pain yesterday but he said he was in the left side of his abdomen Today he has no abdominal pain and he is tolerating his diet Changes from previous H/P or p: Changes Eyes: No Pain, No Vision change, No Conjunctivae inflammation, No Eyelid inflammation, No Other, No Redness ENT: No Ear pain, No Ear discharge, No Nose pain, No Nose discharge, No Nose congestion, No Mouth pain, No Mouth swelling, No Throat pain, No Throat swelling, No Other Cardiovascular: No Chest Pain, No Palpitations, No Orthopnea, No Paroxysmal Noc. Dyspnea, No Edema, No Lt Headedness, No Other Respiratory: No Cough, No Dry, No Shortness of breath, No SOB with excertion, No Wheezing, No Hemoptysis, No Pleuritic Pain, No Sputum, No Other Gastrointestinal: No Nausea, No Vomiting, No Abdominal Pain, No Diarrhea, No Constipation, No Melena, No Hematochezia, No Other Genitourinary: No Dysuria, No Frequency, No Incontinence, No Hematuria, No Retention, No Other Musculoskeletal: No other, No neck pain, No shoulder pain, No arm pain, No back pain, No hand pain, No leg pain, No foot pain Skin: No Rash, No Lesions, No Jaundice, No Bruising, No Other Objective Vitals Vital Signs Date Time Temp Pulse Resp B/P (MAP) Pulse Ox O2 Delivery O2 Flow Rate FiO2 07/13/24 09:48 93 18 94 07/13/24 09:42 Oxymizer 4.0 07/13/24 09:42 N/A 07/13/24 09:31 118/68 07/13/24 04:00 98.0 98.0 Intake/Output Intake and Output 07/13/24 07:00 Intake Total 874 ml Output Total 5450 ml Balance -4576 ml Intake Oral 300 ml IV Total 574 ml Output Urine Total 5450 ml General Appearance: Alert (Somnolent, off sedation), Oriented X3, Cooperative, No acute distress Lungs: Clear to auscultation, Normal air movement Chest/Breasts: Other (Bilateral rhonchi and crackles diffusely) Cardiovascular: Regular rate, Normal S1 Abdomen: Normal bowel sounds, Soft, No tenderness Extremities: No edema Medications Current Medications Medications Dose Ordered Sig/Sandra Route Start Time Stop Time Status Last Admin Dose Admin Ondansetron HCl 4 mg Q4HP PRN IV 07/02/24 23:15 07/12/24 14:53 4 MG Nitroglycerin 0.4 mg Q5MINP PRN SL 07/02/24 23:15 Acetaminophen 650 mg Q6HP PRN GT 07/03/24 12:30 Hold 07/04/24 03:53 650 MG Enoxaparin Sodium 40 mg DAILY SC 07/04/24 10:00 07/13/24 09:23 40 MG Atorvastatin Calcium 40 mg HS GT 07/03/24 22:00 07/12/24 21:25 40 MG Insulin Glargine 10 units BID@0700,2200 SC 07/03/24 22:00 07/13/24 06:30 10 UNITS Enteral Nutritional Formula 1,000 ml 60ML/HR GT 07/07/24 08:30 07/09/24 06:16 1,000 ML Acetylcysteine 200 mg Q8HR NEB 07/08/24 14:00 07/13/24 05:55 200 MG Fluconazole 100 ml @ 100 mls/hr DAILY@2200 IV 07/08/24 22:00 07/12/24 21:25 100 MLS/HR Lorazepam 0.5 mg Q4HR PRN IV 07/09/24 14:30 07/13/24 09:39 0.5 MG Levalbuterol HCl 0.625 mg Q4HWA NEB 07/10/24 06:00 07/13/24 09:42 0.625 MG Morphine Sulfate 2 mg Q4HPRN PRN IV 07/10/24 11:00 07/13/24 07:29 2 MG Levofloxacin/ Dextrose 100 ml @ 100 mls/hr DAILY IV 07/11/24 10:00 07/12/24 10:39 100 MLS/HR Levofloxacin 50 ml @ 50 mls/hr DAILY IV 07/11/24 10:00 07/13/24 09:24 50 MLS/HR Diagnostic Test (Pha) 1 strip IQ4HR 07/10/24 20:00 07/13/24 07:29 1 STRIP Dextrose 50 ml UD PRN IV 07/10/24 16:45 Insulin Human Regular IQ4HR SC 07/10/24 20:00 07/13/24 04:18 2 UNITS Pantoprazole Sodium 40 mg DAILY IV 07/12/24 13:45 07/13/24 09:22 40 MG Propofol 100 ml @ 2.22 mls/hr Q24H IV 07/13/24 08:00 Cancel Laboratory Results Laboratory Tests 07/13/24 03:00 Chemistry Test 07/13/24 03:00 Albumin 2.8 g/dL (3.2-4.8) L Calcium Level 8.7 mg/dL (8.7-10.4) Magnesium Level 1.9 mg/dL (1.6-2.6) Total Protein 5.9 g/dL (5.7-8.2) LFT Test 07/13/24 03:00 Alanine Aminotransferase (ALT) 15 U/L (7-40) Alkaline Phosphatase 106 U/L (46-116) Aspartate Amino Transferase (AST) 13 U/L (13-40) Total Bilirubin 0.6 mg/dL (0.2-1.0) Urinalysis Test 07/02/24 23:08 Urine Color Light-yellow (Yellow) Urine Clarity Clear (Clear) Urine pH 5.0 (5.0-9.0) Urine Specific [place] 1.025 (1.001-1.035) Urine Protein Negative (Negative) Urine Ketones 4+ (Negative) H Urine Blood Negative /uL (Negative) Urine Nitrite Negative (Negative) Urine Bilirubin Negative (Negative) Urine Urobilinogen Normal mg/dL (Negative) Urine Leukocyte Esterase Negative /uL (Negative) Urine RBC <1 /hpf (0 - 3) Urine WBC 1 /hpf (0 - 3) Urine Squamous Epithelial Cells None seen /hpf (<5) Urine Bacteria None seen /hpf (None Seen) Urine Glucose 4+ mg/dL (Normal) H Blood Gas Results Test 07/12/24 10:22 Arterial Blood pH 7.503 (7.350-7.450) FiO2 % 75.0 Microbiology Microbiology Date/Time Source Procedure Growth Status 07/08/24 18:27 Other Pending Resulted 07/08/24 18:27 Other Pending Resulted 07/08/24 18:27 Other Pending Resulted 07/08/24 18:27 Other Pending Resulted 07/08/24 18:27 Other - Final See Separate Report... Resulted 07/08/24 18:27 Bronchial Washings Gram Stain - Final Complete 07/08/24 18:27 Respiratory Culture - Final Staphylococcus aureus Stenotrophomonas maltophilia Complete 07/03/24 19:35 Blood Blood Culture - Final Staph hominis subsp homins Complete 07/03/24 16:51 Urine - [place] Urine Culture - Final Escherichia coli Enterococcus faecalis Complete Assessment/Plan Assessment/Plan DKA, resolved DM, uncontrolled Acute hypoxic respiratory failure s/p intubation on mechanical ventilator ZOYA Sepsis w septic shock Hypernatremia Fever B feet ulcers Thrombocytopenia due to sepsis, improved PLAN: 07/03/2024: IV fluids, change to 1/2 NS Nephrology consult Vasopressors as needed Blood, urine and sputum cultures IV antibiotics: Empiric, change to Cefepime and Vanco Sedation as needed Start Lantus Full code Discussed with family at the bedside Advance directives discussed with family x 20 minutes 07/04/2024: Diarrhea: Check the stools for C diff ZOYA: Continue IV fluids Hypernatremia: Start free water Sepsis with septic shock: Continue cefepime and vancomycin Hypotension: Vasopressors Uterine cultures and respiratory cultures are Discussed with the family at the bedside Lantus 10 units twice a day Accu-Cheks q.4 hours 07/05/24: Continue IV fluids 1/2 NS Vancomycin + Cefepime Free water Minimize sedation Taper down Levophed Podiatry consult MRSA screen: Negative Lantus Discussed with at the bedside 07/06/24: Hypernatremia: Repeat labs Hypokalemia: Replace Vancomycin and Cefepime Continue free water 09/06/2024: Hypernatremia: Continue free water, start tube feeding with Glucerna , discontinue the IV fluids IV antibiotics: Cefepime and vancomycin Lantus Sliding scale Nephrology consult Pulmonary consult Discussed with the at the bedside Full code 07/08/2024: Continue free water to correct hypernatremia C-PAP trial in progress Wound infection with Staph aureus Sputum culture showed Staph aureus and Klebsiella pneumoniae and Citrobacter Blood culture with Staph home in his Cefepime and vancomycin Endoscopy for today Extubation possibly after bronchoscopy today 07/09/24: Change IV antibiotics to Levaquin and Diflucan Free water Hold sedation C-PAP, extubate? Replace K+ Discussed with at the bedside 07/10/24: Start IV D5W Swallow eval PT eval IS Out of bed Suction IV Levaquin IV Diflucan Levophed, taper as tolerated Discussed with and sister at the bedside 07/12/2024: Due to fluid overload, chest x-ray shows congestion: DC the IV fluids, Lasix IV 40 mg x 1, Hypokalemia: Replace p.o. DC the [place] Out of bed as tolerated Physical therapy IV antibiotics: Levofloxacin and Diflucan Off the Levophed drip 07/13/2024: Give more Lasix 40 mg IV Continue IV Levaquin and Diflucan Replace potassium Downgrade to the EWA Continue physical therapy Continue med nebs with Mucomyst Discussed with the at the bedside Plan discussed with: Patient, Spouse My Orders Orders - MEHRAN GUERRERO MD Procedure Category Date Status Time Pantoprazole PHA 07/12/24 In Process (Protonix) 13:45 Chest Portable XY 07/13/24 Resulted 04:00 Transfer Orders XFER 07/13/24 Transmitted 09:44 Date of Service: Jul 13, 2024 Billing Provider: MEHRAN GUERRERO MD Common Visit Codes: [id number] INP/OBS CARE(HIGH) MEHRAN GUERRERO MD Jul 13, 2024 09:55
[2024-07-13] MEDS ORDERED: BACTRIM 5MG/KG Q8HR PER RX 10 ML IV SCH (10:45)
[2024-07-13 11:30] LABS: Base Excess 9.5 mmol/L (-2.0-3.0)
[2024-07-13] MEDS: AMPICILLIN SOD 2GM INJ 2 GM in SODIUM CHL 0.9% 100 ML IV SCH (11:56)
[2024-07-13] MEDS: D5W 5% IV SCH (13:46)
[2024-07-13] MEDS: SULFAMETH TRIMETH IV SCH (13:46)
[2024-07-13 15:29] LABS: Base Excess 5.6 mmol/L (-2.0-3.0)
[2024-07-13] MEDS: EPINEPHrine HCL 0.5 ML NEB NEB ONE (15:45)
[2024-07-13] MEDS: ALBUTEROL SULF 2.5 MG/0.5ML(0.5%) NEB SOLN NEB ONE (15:45)
[2024-07-13] MEDS: EPINEPHrine HCL 0.5 ML NEB ONE (15:58)
[2024-07-13] MEDS: ALBUTEROL SULF 2.5 MG/0.5ML(0.5%) NEB SOLN ONE (16:06)
[2024-07-13] MEDS: FUROSEMIDE 20 MG/2 ML VIAL IV ONE (16:15)
--- NOTE | 2024-07-13 16:18 | DVH ---
CHEST RADIOGRAPH Indication:RESPIRATORY DISTRESS Technique: Single frontal view of the chest was obtained Comparison: XY CHEST PORTABLE on DOS: 07/13/24, XY CHEST PORTABLE on DOS: 07/12/24, XY CHEST PORTABLE on DOS: 07/11/24 FINDINGS: Lines and Tubes: None Lungs: Bilateral perihilar infiltrates with infiltrate and atelectasis in both lung bases. Pleura: No effusion. No pneumothorax. Cardiomediastinal contours: Unremarkable Bones: No acute osseous abnormality. IMPRESSION: 1. Bilateral perihilar and lower lung field airspace disease unimproved from earlier film of 0413 on 07/13/2024.
[2024-07-13] MEDS ORDERED: NOREPINEPHRINE 8 MG/250ML KIT 250 ML IV SCH (16:30)
[2024-07-13] MEDS: DexAMETHasone SOD PHOS 10MG/1ML VIAL INJ IV SCH (16:42)
[2024-07-13] MEDS: NOREPINEPHRINE BITARTRATE 32 MG in SODIUM CHL 0.9% 218 ML IV SCH (16:45)
[2024-07-13 17:07] LABS: Base Excess 4.9 mmol/L (-2.0-3.0)
--- NOTE | 2024-07-13 18:24 | DVHPN2 ---
Progress Note - Dictate Date Seen: Jul 13, 2024 Medical Necessity Reason Pt with a Central, PICC or Fol: Yes The following are medically ne: Jesus Catheter Reason for jesus catheter: Strict I&O Subjective Patient seen and examined at bedside. On supplemental oxygen Overnight events reviewed. vital signs Vital Sign Date Time Temp Pulse Resp B/P (MAP) Pulse Ox O2 Delivery O2 Flow Rate FiO2 07/13/24 18:00 100 34 125/63 (83) 94 07/13/24 18:00 Bi-Pap+ 90 90 07/13/24 16:00 97.9 97.9 07/13/24 14:00 15 Total Intake and Output 07/12/24 07/12/24 07/13/24 15:00 23:00 07:00 Intake Total 424 ml 200 ml 250 ml Output Total 4600 ml 850 ml Balance 424 ml -4400 ml -600 ml medications Current Medications Medications Dose Ordered Sig/Sandra Route Start Time Stop Time Status Last Admin Dose Admin Ondansetron HCl 4 mg Q4HP PRN IV 07/02/24 23:15 07/12/24 14:53 4 MG Nitroglycerin 0.4 mg Q5MINP PRN SL 07/02/24 23:15 Acetaminophen 650 mg Q6HP PRN GT 07/03/24 12:30 Hold 07/04/24 03:53 650 MG Enoxaparin Sodium 40 mg DAILY SC 07/04/24 10:00 07/13/24 09:23 40 MG Atorvastatin Calcium 40 mg HS GT 07/03/24 22:00 07/12/24 21:25 40 MG Insulin Glargine 10 units BID@0700,2200 SC 07/03/24 22:00 07/13/24 06:30 10 UNITS Enteral Nutritional Formula 1,000 ml 60ML/HR GT 07/07/24 08:30 07/09/24 06:16 1,000 ML Acetylcysteine 200 mg Q8HR NEB 07/08/24 14:00 07/13/24 13:18 200 MG Fluconazole 100 ml @ 100 mls/hr DAILY@2200 IV 07/08/24 22:00 07/12/24 21:25 100 MLS/HR Lorazepam 0.5 mg Q4HR PRN IV 07/09/24 14:30 07/13/24 09:39 0.5 MG Levalbuterol HCl 0.625 mg Q4HWA NEB 07/10/24 06:00 07/13/24 13:17 0.625 MG Morphine Sulfate 2 mg Q4HPRN PRN IV 07/10/24 11:00 07/13/24 07:29 2 MG Diagnostic Test (Pha) 1 strip IQ4HR 07/10/24 20:00 07/13/24 15:25 1 STRIP Dextrose 50 ml UD PRN IV 07/10/24 16:45 Insulin Human Regular IQ4HR SC 07/10/24 20:00 07/13/24 15:28 3 UNITS Pantoprazole Sodium 40 mg DAILY IV 07/12/24 13:45 07/13/24 09:22 40 MG Propofol 100 ml @ 2.22 mls/hr Q24H IV 07/13/24 08:00 Cancel Trimethoprim/ Sulfamethoxazole 10 ml @ 0 mls/hr PER PHARMACY IV 07/13/24 10:45 Ampicillin Sodium 2 gm/Sodium Chloride 100 ml @ 100 mls/hr Q6HR IV 07/13/24 12:00 07/13/24 17:53 100 MLS/HR Trimethoprim/ Sulfamethoxazole 22.5 ml/Dextrose 522.5 ml @ 348.333 mls/hr Q8HR IV 07/13/24 14:00 07/13/24 13:46 348.333 MLS/HR Budesonide 0.5 mg BID NEB 07/13/24 22:00 Dexmedetomidine HCl 400 mcg/ Dextrose 100 ml @ 3.7 mls/hr Q24H IV 07/13/24 16:00 Dexamethasone Sodium Phosphate 6 mg Q6HR IV 07/13/24 16:30 07/13/24 17:52 6 MG Norepinephrine Bitartrate 32 mg/ Sodium Chloride 250 ml @ 0.938 mls/ hr Q24H IV 07/13/24 16:45 objective Gen.: Patient lying in bed in no apparent distress. On supplemental oxygen Head: Normocephalic, atraumatic. Eyes: EOMI/PERRLA. Ears: Normal hearing. Normal anatomy. Neck/trachea: Trachea midline, supple. Nose: Normal external anatomy. Mouth: Moist mucous membranes. Chest: Decreased air entry bilaterally. No wheezing or rhonchi. Cardiovascular: Positive S1, positive S2. Regular rate and rhythm. Abdomen: Positive bowel sounds in all 4 quadrants. Soft, non-tender, non- distended. : Deferred. Rectal: Deferred. Skin: Warm, dry. Intact. Extremities: 2+ radial pulses bilaterally. No lower extremity edema. Neuro: Awake, alert, oriented x3. No gross motor or sensory deficits. Cranial nerves II through XII intact. Gait not assessed. laboratory and microbiology Laboratory Tests 07/13/24 03:00 Test 07/13/24 03:00 Range/Units Serum Glucose 92 74-106 mg/dL Assessment/Plan Impression: Acute hypoxic respiratory failure Diabetic ketoacidosis Acute kidney injury Cachexia with a BMI of 1816.8 Events Patient forcing air in upper airways, sounding like stridor - resolves once coughing fit stops. On supplemental oxygen via Oxymizer Taper O2 as tolerated IV steroids Pulmicort BID Continue antibiotics Maintain euvolemia. Monitor renal function Monitor electrolytes, supplement as necessary Potassium supplementation Pain control/anxiolytic PRN Avoid oversedation Tube feeds for nutritional support Monitor hemoglobin Stool occult blood positive. Monitor WBC Patient is awaiting telemetry bed. Labs and imaging reviewed Rest of plan as noted below Plan: S/p extubation On supplemental oxygen via Oxymizer CT head demonstrates no acute intracranial hemorrhage. CXR, ABG reviewed. Off pressors Continue antibiotics. F/u cultures. Monitor renal function due to Acute kidney injury. Monitor electrolytes. Supplement as necessary. IVF NS at 100mL/hour Insulin drip Accucheks, ISS. GI/DVT prophylaxis. Prognosis: Guarded given multiple comorbidities. Condition: Critical Rest of plan per hospitalist and other consultants. A total of 35 minutes of critical care time was spent reviewing the patient record, examining the patient, making a diagnostic and therapeutic plan, discussing this plan with the medical personnel, following up on diagnostic studies and following the patient for clinical stability excluding any and all procedures. At least 50% of this time was spent in direct, [id number] contact. Thank you IZAIAH Cardona for allowing me to participate in this patient's care. Further recommendations will depend on patient's clinical course. Please do not hesitate to contact me if you have any questions or concerns. This medical document was created using an electronic medical record system with [email or web address] system. Although this document has been carefully reviewed, there may still be some phonetic and typographical errors. These areas are purely typographical due to imperfections of the software programs, and do not reflect any compromise in the patient's medical care. Dietary Evaluation Review Comments: 1) If GI is preferred route consider Nepro @ 45 ml/hr goal rate as tolerated 2) If pt remains NPO >7 days consider TPN to meet at least 75% of estimated needs 3) Advance pt diet when medically feasible to a CCHO 60g, Renal diet modified per MOHS SURGEON/GENERAL DERMATOLOGIST recommendations 4) Continue current plan of care Expected Outcomes/Goals: 1. Pt will consume >75% of estimated needs within 2-3 days Plan discussed with: Other (LUKE Cervantes) Critical Care Time(min): 35 NADER ALLEN MD Jul 13, 2024 18:24
[2024-07-13] MEDS: BUDESONIDE (INHALATION) 0.5 MG/2 ML NEB NEB SCH (21:21)
[2024-07-14] VITALS (116 sets, daily range): BP systolic 85–149; BP diastolic 24–83; PULSE 74–100; RESP 12–36; TEMP 98–99.2; O2SAT 90–100
[2024-07-14 08:05] LABS: Base Excess 7.7 mmol/L (-2.0-3.0)
[2024-07-14 08:56] LABS: Chloride 100 mmol/L (98-107); Potassium 3.9 mmol/L (3.5-5.1); Sodium 137 mmol/L (136-145)
[2024-07-14 08:57] LABS: Anion Gap 5 (5-15); Calcium 8.4 mg/dL (8.7-10.4); Carbon Dioxide 32 mmol/L (20-31); INR 1.59 (0.9-1.15); Prothrombin Time 16.3 sec (9.3-11.8)
[2024-07-14 09:02] LABS: BUN/Creatinine Ratio 17.3 (10.0-20.0); Blood Urea Nitrogen 9 mg/dL (9-23); Magnesium 1.7 mg/dL (1.6-2.6)
[2024-07-14 09:04] LABS: Glucose 261 mg/dL (74-106)
[2024-07-14] MEDS ORDERED: TPN PER PHARMACY 0 ML IV SCH (12:45)
--- NOTE | 2024-07-14 13:07 | DVHPN2 ---
Progress Note Date Seen: Jul 14, 2024 Medical Necessity Reason Pt with a Central, PICC or Fol: Yes The following are medically ne: Jesus Catheter Reason for jesus catheter: Strict I&O Subjective Patient reports: No new complaints Review of Systems: HEENT:Normal, CVS:Normal, RESPIRATORY:Normal, GI:Normal, :Normal, MSK:Normal, NEURO:Normal Objective vital signs Vital Sign Date Time Temp Pulse Resp B/P (MAP) Pulse Ox O2 Delivery O2 Flow Rate FiO2 07/14/24 12:24 80 18 108/61 07/14/24 11:30 97 Bi-Pap+ 90 90 07/14/24 11:15 98.0 98.0 07/14/24 10:02 10.0 Total Intake and Output 07/13/24 07/13/24 07/14/24 15:00 23:00 07:00 Intake Total 622 ml 3026.127 ml 1078.330 ml Output Total 2750 ml 1660 ml Balance 622 ml 276.127 ml -581.670 ml medications Current Medications Medications Dose Ordered Sig/Sandra Route Start Time Stop Time Status Last Admin Dose Admin Ondansetron HCl 4 mg Q4HP PRN IV 07/02/24 23:15 07/13/24 20:21 4 MG Nitroglycerin 0.4 mg Q5MINP PRN SL 07/02/24 23:15 Acetaminophen 650 mg Q6HP PRN GT 07/03/24 12:30 Hold 07/04/24 03:53 650 MG Enoxaparin Sodium 40 mg DAILY SC 07/04/24 10:00 07/14/24 09:54 40 MG Atorvastatin Calcium 40 mg HS GT 07/03/24 22:00 07/12/24 21:25 40 MG Insulin Glargine 10 units BID@0700,2200 SC 07/03/24 22:00 07/14/24 06:40 10 UNITS Enteral Nutritional Formula 1,000 ml 60ML/HR GT 07/07/24 08:30 07/09/24 06:16 1,000 ML Fluconazole 100 ml @ 100 mls/hr DAILY@2200 IV 07/08/24 22:00 07/13/24 21:36 100 MLS/HR Lorazepam 0.5 mg Q4HR PRN IV 07/09/24 14:30 07/13/24 09:39 0.5 MG Levalbuterol HCl 0.625 mg Q4HWA NEB 07/10/24 06:00 07/14/24 10:02 0.625 MG Morphine Sulfate 2 mg Q4HPRN PRN IV 07/10/24 11:00 07/14/24 12:24 2 MG Diagnostic Test (Pha) 1 strip IQ4HR 07/10/24 20:00 07/14/24 11:13 1 STRIP Dextrose 50 ml UD PRN IV 07/10/24 16:45 Insulin Human Regular IQ4HR SC 07/10/24 20:00 07/14/24 11:13 3 UNITS Pantoprazole Sodium 40 mg DAILY IV 07/12/24 13:45 07/14/24 09:54 40 MG Propofol 100 ml @ 2.22 mls/hr Q24H IV 07/13/24 08:00 Cancel Trimethoprim/ Sulfamethoxazole 10 ml @ 0 mls/hr PER PHARMACY IV 07/13/24 10:45 Ampicillin Sodium 2 gm/Sodium Chloride 100 ml @ 100 mls/hr Q6HR IV 07/13/24 12:00 07/14/24 11:15 100 MLS/HR Trimethoprim/ Sulfamethoxazole 22.5 ml/Dextrose 522.5 ml @ 348.333 mls/hr Q8HR IV 07/13/24 14:00 07/14/24 06:27 348.333 MLS/HR Budesonide 0.5 mg BID NEB 07/13/24 22:00 07/14/24 06:47 0.5 MG Dexmedetomidine HCl 400 mcg/ Dextrose 100 ml @ 3.7 mls/hr Q24H IV 07/13/24 16:00 Dexamethasone Sodium Phosphate 6 mg Q6HR IV 07/13/24 16:30 07/14/24 09:54 6 MG Norepinephrine Bitartrate 32 mg/ Sodium Chloride 250 ml @ 0.938 mls/ hr Q24H IV 07/13/24 16:45 Examination: GENERAL:Normal, HEENT:Normal, NECK:Normal, LUNGS:Normal, LUNGS:Abnormal (on bipap), CVS:Normal, ABDOMEN:Normal, MSK:Normal, MSK:Abnormal (ulcer both legs), SKIN:Normal, NEURO:Normal, :Normal laboratory and microbiology Laboratory Tests 07/14/24 08:25 07/13/24 03:00 Test 07/14/24 08:25 Range/Units Serum Glucose 261 #H 74-106 mg/dL Microbiology Date/Time Source Procedure Growth Status 07/13/24 16:02 Urine - [place] Urine Culture - Preliminary Resulted 07/08/24 18:27 Other Pending Resulted 07/08/24 18:27 Other Pending Resulted 07/08/24 18:27 Other Pending Resulted 07/08/24 18:27 Other Pending Resulted 07/08/24 18:27 Other - Final See Separate Report... Resulted 07/08/24 18:27 Bronchial Washings Gram Stain - Final Complete 07/08/24 18:27 Respiratory Culture - Final Staphylococcus aureus Stenotrophomonas maltophilia Complete 07/03/24 19:35 Blood Blood Culture - Final Staph hominis subsp homins Complete Problem List/Assessment/Plan Problem List/Assessment/Plan #1 acute resp failure: bipap as needed #2 sepsis with pneumonia due to s aureus/ s maltophila: iv bactrim #3 dka/dm: lantus, ssi #4 acute renal failure ?vasomotor nephropathy: improved #5 mod protein malnutrition/difficulty swallowing: tpn, npo #6 ulcers both feet #7 ? acute diastolic heart failure: lasix iv Plan discussed with: Patient My Orders My Orders Orders - PIETRO PECK MD Procedure Category Date Status Time Npo (Nothing By DIET 07/14/24 Transmitted Mouth) Diet Lunch * Picc Line Consult CONS 07/14/24 Transmitted 12:43 Tpn Per Pharmacy PHA 07/14/24 Logged 12:45 Furosemide Injection PHA 07/14/24 Logged (Lasix Injection) 12:45 Magnesium Sulfate PHA 07/14/24 Logged 1gm/100ml 13:00 Complete Blood Count LAB 07/15/24 Verified 06:00 Comprehensive LAB 07/15/24 Verified Metabolic Panel 06:00 Magnesium LAB 07/15/24 Verified 05:00 Chest Portable XY 07/15/24 Logged 06:00 Dietary Evaluation Review Comments: 1) If GI is preferred route consider Nepro @ 45 ml/hr goal rate as tolerated 2) If pt remains NPO >7 days consider TPN to meet at least 75% of estimated needs 3) Advance pt diet when medically feasible to a CCHO 60g, Renal diet modified per PARTS COUNTER CLERK recommendations 4) Continue current plan of care Expected Outcomes/Goals: 1. Pt will consume >75% of estimated needs within 2-3 days Critical Care Time (mins): 41 (critical care time 41 mins) Date of Service: Jul 14, 2024 Billing Provider: PIETRO PECK MD Common Visit Codes: [id number] CARE 30-74 MIN PIETRO PECK MD Jul 14, 2024 13:07
[2024-07-14] MEDS: FUROSEMIDE 20 MG/2 ML VIAL IV ONE (13:20)
[2024-07-14] MEDS: MAGNESIUM SULFATE 1GM/100ML 100 ML IV SCH (13:21)
[2024-07-14] MEDS ORDERED: DEXTROSE (50%) 50ML SYRG IV SCH (14:00)
[2024-07-14] MEDS: LIDOCAINE 1% (LOCAL ANESTH.) PF 5ml SDV ID ONE (15:01)
[2024-07-14] MEDS: ACCU-CHEK COMFORT CURVE STRIP VI SCH (17:25)
[2024-07-14] MEDS: InsuLIN REG 1unit/0.01ml Soln (100units/ml) SC SCH (17:25)
[2024-07-14] MEDS: AMINO ACID INFUSION IN D10W 1,000 ML IV ONE (21:41)
[2024-07-14] MEDS: SODIUM CHLOR 0.9% PF (SALINE LOCK) 10ML VIAL/SYR IV SCH (21:41)
[2024-07-15] VITALS (114 sets, daily range): BP systolic 78–145; BP diastolic 42–85; PULSE 70–93; RESP 12–29; TEMP 97–98.9; O2SAT 87–100
[2024-07-15 03:58] LABS: Basophils # (auto) 0 10 ^3/uL (0-0.2); Basophils % (auto) 0.2 % (0.0-2.0); Eosinophils # (auto) 0 10 ^3/uL (0-0.8); Hematocrit 34.4 % (41.0-53.0); Hemoglobin 11.5 g/dL (13.5-17.5); Lymphocytes # (auto) 0.4 10 ^3/uL (0.4-5.4); Lymphocytes % (auto) 4.5 % (10.0-50.0); Mean Corpuscular Hemoglobin 29.3 pg (28.0-32.0); Mean Corpuscular Hgb Conc. 33.3 g/dL (32.0-36.0); Monocytes # (auto) 0.4 10 ^3/uL (0-1.3); Neutrophils # (auto) 8.5 10 ^3/uL (1.6-8.6); Neutrophils % (auto) 91.3 % (37.0-80.0); Nucleated Red Blood Cells % 0.1 %; Platelet Count (auto) 410 10^3/uL (140-450); Red Blood Cells 3.91 10^6/uL (4.5-5.90); Red Cell Distribution Width 13.7 % (11.8-14.3); White Blood Cell 9.4 10^3/uL (4.4-10.8)
[2024-07-15 04:17] LABS: Alanine Aminotransferase 12 U/L (7-40); Albumin 2.7 g/dL (3.2-4.8); Alkaline Phosphatase 92 U/L (46-116); Anion Gap 4 (5-15); Aspartate Aminotransferase 9 U/L (13-40); BUN/Creatinine Ratio 20.7 (10.0-20.0); Blood Urea Nitrogen 12 mg/dL (9-23); Calcium 8.4 mg/dL (8.7-10.4); Carbon Dioxide 31 mmol/L (20-31); Chloride 101 mmol/L (98-107); Glucose 268 mg/dL (74-106); Magnesium 2.1 mg/dL (1.6-2.6); Phosphorus 2.3 mg/dL (2.4-5.1); Potassium 3.8 mmol/L (3.5-5.1); Sodium 136 mmol/L (136-145); Triglycerides 113 mg/dL (< 150)
[2024-07-15 04:18] LABS: Bilirubin, Total 0.3 mg/dL (0.2-1.0); Total Protein 6.1 g/dL (5.7-8.2)
--- NOTE | 2024-07-15 05:28 | DVH ---
CHEST RADIOGRAPH Indication:resp failure Technique: Single frontal view of the chest was obtained Comparison: XY CHEST PORTABLE on DOS: 07/13/24, XY CHEST PORTABLE on DOS: 07/13/24 FINDINGS: Lines and Tubes: Right PICC terminates in the superior vena cava. Lungs: Bilateral consolidation is similar to prior study. Pleura: No effusion. No pneumothorax. Cardiomediastinal contours: Unremarkable Bones: No acute osseous abnormality. IMPRESSION: 1. Multifocal airspace disease which may reflect pneumonia.
[2024-07-15] MEDS: NOREPINEPHRINE 8 MG/250ML KIT 250 ML IV SCH (13:48)
[2024-07-15] MEDS: POTASSIUM PHOSPHATE 22 MEQ in SODIUM CHL 0.9% 100 ML IV ONE (15:54)
--- NOTE | 2024-07-15 16:11 | DVHPN2 ---
Progress Note Date Seen: Jul 15, 2024 Medical Necessity Reason Pt with a Central, PICC or Fol: Yes The following are medically ne: Jesus Catheter Reason for jesus catheter: Strict I&O Subjective Patient reports: No new complaints Review of Systems: HEENT:Normal, CVS:Normal, RESPIRATORY:Normal, GI:Normal, :Normal, MSK:Normal, NEURO:Normal Objective vital signs Vital Sign Date Time Temp Pulse Resp B/P (MAP) Pulse Ox O2 Delivery O2 Flow Rate FiO2 07/15/24 15:37 88 14 125/58 (80) 100 30 07/15/24 14:00 Oxymizer 8 07/15/24 12:15 98.0 98.0 Total Intake and Output 07/14/24 07/14/24 07/15/24 15:00 23:00 07:00 Intake Total 179.798 ml 701.313 ml 813.252 ml Output Total 1000 ml 1150 ml Balance 179.798 ml -298.687 ml -336.748 ml medications Current Medications Medications Dose Ordered Sig/Sandra Route Start Time Stop Time Status Last Admin Dose Admin Ondansetron HCl 4 mg Q4HP PRN IV 07/02/24 23:15 07/13/24 20:21 4 MG Nitroglycerin 0.4 mg Q5MINP PRN SL 07/02/24 23:15 Acetaminophen 650 mg Q6HP PRN GT 07/03/24 12:30 Hold 07/04/24 03:53 650 MG Enoxaparin Sodium 40 mg DAILY SC 07/04/24 10:00 07/15/24 09:50 40 MG Insulin Glargine 10 units BID@0700,2200 SC 07/03/24 22:00 07/15/24 07:02 10 UNITS Fluconazole 100 ml @ 100 mls/hr DAILY@2200 IV 07/08/24 22:00 07/14/24 21:41 100 MLS/HR Lorazepam 0.5 mg Q4HR PRN IV 07/09/24 14:30 07/13/24 09:39 0.5 MG Levalbuterol HCl 0.625 mg Q4HWA NEB 07/10/24 06:00 07/15/24 15:59 0.625 MG Morphine Sulfate 2 mg Q4HPRN PRN IV 07/10/24 11:00 07/15/24 10:16 2 MG Pantoprazole Sodium 40 mg DAILY IV 07/12/24 13:45 07/15/24 10:03 40 MG Propofol 100 ml @ 2.22 mls/hr Q24H IV 07/13/24 08:00 Cancel Trimethoprim/ Sulfamethoxazole 10 ml @ 0 mls/hr PER PHARMACY IV 07/13/24 10:45 Trimethoprim/ Sulfamethoxazole 22.5 ml/Dextrose 522.5 ml @ 348.333 mls/hr Q8HR IV 07/13/24 14:00 07/15/24 14:03 348.333 MLS/HR Budesonide 0.5 mg BID NEB 07/13/24 22:00 07/15/24 06:36 0.5 MG Amino Acids 0 ml @ 0 mls/hr PER PHARMACY IV 07/14/24 12:45 Diagnostic Test (Pha) 1 strip Q6HR 07/14/24 18:00 07/15/24 11:36 1 STRIP Insulin Human Regular FOLLOW SLIDING SCALE Q6HR SC 07/14/24 18:00 07/15/24 11:36 4 UNITS Dextrose 50 ml UD IV 07/14/24 14:00 Sodium Chloride 10 ml QSHIFT@10,22 IV 07/14/24 22:00 07/15/24 09:50 10 ML Fat Emulsion Intravenous 50 ml/ Sodium Phosphate 30 meq/Potassium Chloride 50 meq/ Calcium Gluconate 2.3 meq/Magnesium Sulfate 10 meq/ Multivitamins 10 ml/Chromium/ Copper/Manganese/ Zinc 1 ml/Insulin Human Regular 8 units/Amino Acids/ Dextrose/Purified Water 1,201.0262 ml @ 50 mls/hr Q24H2M IV 07/15/24 22:00 07/16/24 21:59 Norepinephrine Bitartrate 250 ml @ 3.75 mls/hr Q24H IV 07/15/24 13:30 07/15/24 13:48 3.75 MLS/HR Examination: GENERAL:Normal, HEENT:Normal, NECK:Normal, LUNGS:Normal, CVS:Normal, ABDOMEN:Normal, MSK:Normal, MSK:Abnormal (sacral decub, ulcers both legs), SKIN:Normal, NEURO:Normal, :Normal laboratory and microbiology Laboratory Tests 07/15/24 03:35 Test 07/15/24 03:35 Range/Units Serum Glucose 268 H 74-106 mg/dL Microbiology Date/Time Source Procedure Growth Status 07/13/24 16:02 Urine - [place] Urine Culture - Preliminary Resulted 07/08/24 18:27 Other - Final Resulted 07/08/24 18:27 Other - Final Resulted 07/08/24 18:27 Other Pending Resulted 07/08/24 18:27 Other Pending Resulted 07/08/24 18:27 Other - Final See Separate Report... Resulted 07/08/24 18:27 Bronchial Washings Gram Stain - Final Complete 07/08/24 18:27 Respiratory Culture - Final Staphylococcus aureus Stenotrophomonas maltophilia Complete 07/03/24 19:35 Blood Blood Culture - Final Staph hominis subsp homins Complete Problem List/Assessment/Plan Problem List/Assessment/Plan #1 acute resp failure: bipap as needed #2 septic shock with pneumonia due to s aureus/ s maltophila: iv bactrim #3 dka/dm: lantus, ssi #4 acute renal failure ?vasomotor nephropathy: improved #5 mod protein malnutrition/difficulty swallowing: tpn, #6 ulcers both feet #7 ? acute diastolic heart failure: lasix iv #8 yeast in urine: iv micafungin #9 sacral decub: surg eval Plan discussed with: Patient My Orders My Orders Orders - PIETRO PECK MD Procedure Category Date Status Time * Dietary Consult CONS 07/15/24 Transmitted 11:46 Amino Acid PHA 07/15/24 In Process Infusion... W/Fat 22:00 Comprehensive LAB 07/16/24 Verified Metabolic Panel 06:00 Magnesium LAB 07/16/24 Verified 06:00 Phosphorus LAB 07/16/24 Verified 06:00 Tpn Per Pharmacy ELI 07/15/24 In Process 22:00 Potassium Phosphate PHA 07/15/24 In Process 12:15 Pureed DIET 07/15/24 Transmitted Lunch Norepinephrine 8 PHA 07/15/24 In Process Mg/250ml Kit 13:30 Micafungin Sodium PHA 07/16/24 Verified (Mycamine) 10:00 * Surgical Consult CONS 07/15/24 Verified Furosemide Injection PHA 07/15/24 Verified (Lasix Injection) 16:15 Basic Metabolic Panel LAB 07/16/24 Verified 06:00 Complete Blood Count LAB 07/16/24 Verified 06:00 Chest Portable XY 07/16/24 Verified 06:00 Dietary Evaluation Review Comments: 1) If GI is preferred route consider Nepro @ 45 ml/hr goal rate as tolerated 2) If pt remains NPO >7 days consider TPN to meet at least 75% of estimated needs 3) Advance pt diet when medically feasible to a CCHO 60g, Renal diet modified per ACTIVITIES ASSISTANT recommendations 4) Continue current plan of care Expected Outcomes/Goals: 1. Pt will consume >75% of estimated needs within 2-3 days Critical Care Time (mins): 51 (critical care time 51 mins) Date of Service: Jul 15, 2024 Billing Provider: PIETRO PECK MD Common Visit Codes: [id number] CARE 30-74 MIN PIETRO PECK MD Jul 15, 2024 16:11
[2024-07-15] MEDS: MICAFUNGIN SODIUM 100 MG in SODIUM CHL 0.9% 100 ML IV SCH (17:17)
[2024-07-15] MEDS: FUROSEMIDE 20 MG/2 ML VIAL IV ONE (17:17)
[2024-07-15] MEDS: TPN PER PHARMACY IV NR (20:00)
[2024-07-16] VITALS (105 sets, daily range): BP systolic 82–138; BP diastolic 38–80; PULSE 64–96; RESP 11–32; TEMP 97.9–98.9; O2SAT 86–100
--- NOTE | 2024-07-16 04:13 | DVH ---
CHEST RADIOGRAPH Indication:CHF Technique: Single frontal view of the chest was obtained Comparison: XY CHEST PORTABLE on DOS: 07/15/24, XY CHEST PORTABLE on DOS: 07/13/24, XY CHEST PORTABLE on DOS: 07/13/24, XY CHEST PORTABLE on DOS: 07/12/24, XY CHEST PORTABLE on DOS: 07/11/24, XY CHEST P ORTABLE on DOS: 07/15/24 FINDINGS: Lines and Tubes: Right PICC terminates in the superior vena cava. Lungs: Bilateral consolidation is similar to prior study. Pleura: No effusion. No pneumothorax. Cardiomediastinal contours: Unremarkable Bones: No acute osseous abnormality. IMPRESSION: 1. Multifocal airspace disease which may reflect pneumonia.
[2024-07-16 04:19] LABS: Basophils # (auto) 0 10 ^3/uL (0-0.2); Basophils % (auto) 0.2 % (0.0-2.0); Eosinophils # (auto) 0 10 ^3/uL (0-0.8); Eosinophils % (auto) 0.1 % (0.0-7.0); Hemoglobin 12.9 g/dL (13.5-17.5); Monocytes # (auto) 0.5 10 ^3/uL (0-1.3)
[2024-07-16 04:21] LABS: Hematocrit 38.9 % (41.0-53.0); Lymphocytes # (auto) 1.1 10 ^3/uL (0.4-5.4); Lymphocytes % (auto) 13.5 % (10.0-50.0); Mean Corpuscular Hemoglobin 29.4 pg (28.0-32.0); Mean Corpuscular Hgb Conc. 33.1 g/dL (32.0-36.0); Monocytes % (auto) 6.2 % (0.0-12.0); Neutrophils # (auto) 6.5 10 ^3/uL (1.6-8.6); Platelet Count (auto) 479 10^3/uL (140-450); Red Blood Cells 4.37 10^6/uL (4.5-5.90); Red Cell Distribution Width 14.1 % (11.8-14.3); White Blood Cell 8.1 10^3/uL (4.4-10.8)
[2024-07-16 04:39] LABS: Alanine Aminotransferase 11 U/L (7-40); Albumin 3.1 g/dL (3.2-4.8); Alkaline Phosphatase 96 U/L (46-116); Anion Gap 7 (5-15); Aspartate Aminotransferase 9 U/L (13-40); BUN/Creatinine Ratio 17.5 (10.0-20.0); Blood Urea Nitrogen 11 mg/dL (9-23); Calcium 8.6 mg/dL (8.7-10.4); Carbon Dioxide 30 mmol/L (20-31); Chloride 101 mmol/L (98-107); Glucose 78 mg/dL (74-106); Magnesium 1.8 mg/dL (1.6-2.6); Potassium 4.1 mmol/L (3.5-5.1); Sodium 138 mmol/L (136-145)
[2024-07-16 04:40] LABS: Bilirubin, Total 0.4 mg/dL (0.2-1.0); Phosphorus 3.1 mg/dL (2.4-5.1); Total Protein 6.6 g/dL (5.7-8.2)
--- NOTE | 2024-07-16 08:40 | DVHPN2 ---
Subjective Feels better On 8 liters oximized O2 Says he can swallow better Changes from previous H/P or p: Changes Eyes: No Pain, No Vision change, No Conjunctivae inflammation, No Eyelid inflammation, No Other, No Redness ENT: No Ear pain, No Ear discharge, No Nose pain, No Nose discharge, No Nose congestion, No Mouth pain, No Mouth swelling, No Throat pain, No Throat swelling, No Other Cardiovascular: No Chest Pain, No Palpitations, No Orthopnea, No Paroxysmal Noc. Dyspnea, No Edema, No Lt Headedness, No Other Respiratory: No Cough, No Dry, No Shortness of breath, No SOB with excertion, No Wheezing, No Hemoptysis, No Pleuritic Pain, No Sputum, No Other Gastrointestinal: No Nausea, No Vomiting, No Abdominal Pain, No Diarrhea, No Constipation, No Melena, No Hematochezia, No Other Genitourinary: No Dysuria, No Frequency, No Incontinence, No Hematuria, No Retention, No Other Musculoskeletal: No other, No neck pain, No shoulder pain, No arm pain, No back pain, No hand pain, No leg pain, No foot pain Skin: No Rash, No Lesions, No Jaundice, No Bruising, No Other Objective Vitals Vital Signs Date Time Temp Pulse Resp B/P (MAP) Pulse Ox O2 Delivery O2 Flow Rate FiO2 07/16/24 07:30 78 19 88/44 (59) 97 07/16/24 06:57 Oxymizer 8.0 07/16/24 06:57 N/A 07/16/24 04:00 98.3 98.3 Intake/Output Intake and Output 07/16/24 07:00 Intake Total 3870.163 ml Output Total 3775 ml Balance 95.163 ml Intake Oral 505 ml IV Total 3290.163 ml Other 75 ml Output Urine Total 3775 ml General Appearance: Alert (Somnolent, off sedation), Oriented X3, Cooperative, No acute distress Lungs: Clear to auscultation, Normal air movement Chest/Breasts: Other (Bilateral rhonchi and crackles diffusely) Cardiovascular: Regular rate, Normal S1 Abdomen: Normal bowel sounds, Soft, No tenderness Extremities: No edema Medications Current Medications Medications Dose Ordered Sig/Sandra Route Start Time Stop Time Status Last Admin Dose Admin Ondansetron HCl 4 mg Q4HP PRN IV 07/02/24 23:15 07/13/24 20:21 4 MG Nitroglycerin 0.4 mg Q5MINP PRN SL 07/02/24 23:15 Acetaminophen 650 mg Q6HP PRN GT 07/03/24 12:30 Hold 07/04/24 03:53 650 MG Enoxaparin Sodium 40 mg DAILY SC 07/04/24 10:00 07/15/24 09:50 40 MG Insulin Glargine 10 units BID@0700,2200 SC 07/03/24 22:00 07/15/24 22:12 10 UNITS Lorazepam 0.5 mg Q4HR PRN IV 07/09/24 14:30 07/13/24 09:39 0.5 MG Levalbuterol HCl 0.625 mg Q4HWA NEB 07/10/24 06:00 07/16/24 06:57 0.625 MG Morphine Sulfate 2 mg Q4HPRN PRN IV 07/10/24 11:00 07/16/24 04:16 2 MG Pantoprazole Sodium 40 mg DAILY IV 07/12/24 13:45 07/15/24 10:03 40 MG Propofol 100 ml @ 2.22 mls/hr Q24H IV 07/13/24 08:00 Cancel Trimethoprim/ Sulfamethoxazole 10 ml @ 0 mls/hr PER PHARMACY IV 07/13/24 10:45 Trimethoprim/ Sulfamethoxazole 22.5 ml/Dextrose 522.5 ml @ 348.333 mls/hr Q8HR IV 07/13/24 14:00 07/16/24 06:25 348.333 MLS/HR Budesonide 0.5 mg BID NEB 07/13/24 22:00 07/16/24 06:57 0.5 MG Amino Acids 0 ml @ 0 mls/hr PER PHARMACY IV 07/14/24 12:45 Diagnostic Test (Pha) 1 strip Q6HR 07/14/24 18:00 07/16/24 06:26 1 STRIP Insulin Human Regular FOLLOW SLIDING SCALE Q6HR SC 07/14/24 18:00 07/16/24 00:00 12 UNITS Dextrose 50 ml UD IV 07/14/24 14:00 Sodium Chloride 10 ml QSHIFT@10,22 IV 07/14/24 22:00 07/15/24 22:08 10 ML Fat Emulsion Intravenous 50 ml/ Sodium Phosphate 30 meq/Potassium Chloride 50 meq/ Calcium Gluconate 2.3 meq/Magnesium Sulfate 10 meq/ Multivitamins 10 ml/Chromium/ Copper/Manganese/ Zinc 1 ml/Insulin Human Regular 8 units/Amino Acids/ Dextrose/Purified Water 1,201.0262 ml @ 50 mls/hr Q24H2M IV 07/15/24 22:00 07/16/24 21:59 07/15/24 20:00 50 MLS/HR Norepinephrine Bitartrate 250 ml @ 3.75 mls/hr Q24H IV 07/15/24 13:30 07/15/24 13:48 3.75 MLS/HR Micafungin Sodium 100 mg/Sodium Chloride 100 ml @ 100 mls/hr DAILY IV 07/15/24 17:00 07/15/24 17:17 100 MLS/HR Laboratory Results Laboratory Tests 07/16/24 04:10 Chemistry Test 07/16/24 04:10 Albumin 3.1 g/dL (3.2-4.8) L Calcium Level 8.6 mg/dL (8.7-10.4) L Magnesium Level 1.8 mg/dL (1.6-2.6) Phosphorus Level 3.1 mg/dL (2.4-5.1) Total Protein 6.6 g/dL (5.7-8.2) LFT Test 07/16/24 04:10 Alanine Aminotransferase (ALT) 11 U/L (7-40) Alkaline Phosphatase 96 U/L (46-116) Aspartate Amino Transferase (AST) 9 U/L (13-40) L Total Bilirubin 0.4 mg/dL (0.2-1.0) Urinalysis Test 07/02/24 23:08 Urine Color Light-yellow (Yellow) Urine Clarity Clear (Clear) Urine pH 5.0 (5.0-9.0) Urine Specific [place] 1.025 (1.001-1.035) Urine Protein Negative (Negative) Urine Ketones 4+ (Negative) H Urine Blood Negative /uL (Negative) Urine Nitrite Negative (Negative) Urine Bilirubin Negative (Negative) Urine Urobilinogen Normal mg/dL (Negative) Urine Leukocyte Esterase Negative /uL (Negative) Urine RBC <1 /hpf (0 - 3) Urine WBC 1 /hpf (0 - 3) Urine Squamous Epithelial Cells None seen /hpf (<5) Urine Bacteria None seen /hpf (None Seen) Urine Glucose 4+ mg/dL (Normal) H Microbiology Microbiology Date/Time Source Procedure Growth Status 07/13/24 16:02 Urine - [place] Urine Culture - Preliminary Resulted 07/08/24 18:27 Other - Final Resulted 07/08/24 18:27 Other - Final Resulted 07/08/24 18:27 Other Pending Resulted 07/08/24 18:27 Other Pending Resulted 07/08/24 18:27 Other - Final See Separate Report... Resulted 07/08/24 18:27 Bronchial Washings Gram Stain - Final Complete 07/08/24 18:27 Respiratory Culture - Final Staphylococcus aureus Stenotrophomonas maltophilia Complete 07/03/24 19:35 Blood Blood Culture - Final Staph hominis subsp homins Complete Assessment/Plan Assessment/Plan DKA, resolved DM, uncontrolled Acute hypoxic respiratory failure s/p intubation on mechanical ventilator ZOYA Sepsis w septic shock Hypernatremia Fever B feet ulcers Thrombocytopenia due to sepsis, improved Sacral decub ulcer PLAN: 07/03/2024: IV fluids, change to 1/2 NS Nephrology consult Vasopressors as needed Blood, urine and sputum cultures IV antibiotics: Empiric, change to Cefepime and Vanco Sedation as needed Start Lantus Full code Discussed with family at the bedside Advance directives discussed with family x 20 minutes 07/04/2024: Diarrhea: Check the stools for C diff ZOYA: Continue IV fluids Hypernatremia: Start free water Sepsis with septic shock: Continue cefepime and vancomycin Hypotension: Vasopressors Uterine cultures and respiratory cultures are Discussed with the family at the bedside Lantus 10 units twice a day Accu-Cheks q.4 hours 07/05/24: Continue IV fluids 1/2 NS Vancomycin + Cefepime Free water Minimize sedation Taper down Levophed Podiatry consult MRSA screen: Negative Lantus Discussed with at the bedside 07/06/24: Hypernatremia: Repeat labs Hypokalemia: Replace Vancomycin and Cefepime Continue free water 09/06/2024: Hypernatremia: Continue free water, start tube feeding with Glucerna , discontinue the IV fluids IV antibiotics: Cefepime and vancomycin Lantus Sliding scale Nephrology consult Pulmonary consult Discussed with the at the bedside Full code 07/08/2024: Continue free water to correct hypernatremia C-PAP trial in progress Wound infection with Staph aureus Sputum culture showed Staph aureus and Klebsiella pneumoniae and Citrobacter Blood culture with Staph home in his Cefepime and vancomycin Endoscopy for today Extubation possibly after bronchoscopy today 07/09/24: Change IV antibiotics to Levaquin and Diflucan Free water Hold sedation C-PAP, extubate? Replace K+ Discussed with at the bedside 07/10/24: Start IV D5W Swallow eval PT eval IS Out of bed Suction IV Levaquin IV Diflucan Levophed, taper as tolerated Discussed with and sister at the bedside 07/12/2024: Due to fluid overload, chest x-ray shows congestion: DC the IV fluids, Lasix IV 40 mg x 1, Hypokalemia: Replace p.o. DC the Torres Out of bed as tolerated Physical therapy IV antibiotics: Levofloxacin and Diflucan Off the Levophed drip 07/13/2024: Give more Lasix 40 mg IV Continue IV Levaquin and Diflucan Replace potassium Downgrade to the EWA Continue physical therapy Continue med nebs with Mucomyst Discussed with the at the bedside : Sacral ulcer: consult Sx Pulmonary congestion: Lasix 40 mg IV Pneumonia: Bactrim & Micafungin IV Sepsis w septic shock: Levophed Lovenox Protonix Physical therapy Plan discussed with: Patient My Orders Orders - MEHRAN GUERRERO MD Procedure Category Date Status Time * Swallow Request ST 07/16/24 Transmitted 08:27 Furosemide Injection PHA 07/16/24 Logged (Lasix Injection) 08:45 * Swallow Request ST 07/16/24 Transmitted 08:36 Date of Service: Jul 16, 2024 Billing Provider: MEHRAN GUERRERO MD Common Visit Codes: [id number] INP/OBS CARE(HIGH) MEHRAN GUERRERO MD Jul 16, 2024 08:40
[2024-07-16] MEDS: FUROSEMIDE 40 MG/4 ML VIAL IV ONE (08:52)
--- NOTE | 2024-07-16 16:10 | DVHINCON2 ---
Date of service: Jul 16, 2024 Allergies: Coded Allergies: NO KNOWN ALLERGIES (Unverified , 07/02/24) Home Meds Reported Medications Glipizide (Glipizide) 5 Mg Tab, 5 MG PO DAILY for 30 Days, MG 07/04/24 Metformin Hydrochloride (Metformin Hcl) 500 Mg Tab, 500 MG PO IBID for 30 Days, MG 07/04/24 Dapagliflozin Propanediol (Farxiga) 10 Mg Tab, 10 MG PO DAILY, TAB 07/04/24 Gabapentin (Gabapentin) 600 Mg Tab, 600 MG PO BID for 30 Days, MG 07/04/24 Current Medications Current Medications Medications (Trade) Dose Ordered Sig/Sandra Route PRN Reason Start Time Stop Time Status Last Admin Fat Emulsion Intravenous 50 ml/ Sodium Phosphate 30 meq/Potassium Chloride 50 meq/ Calcium Gluconate 2.3 meq/Magnesium Sulfate 10 meq/ Multivitamins 10 ml/Chromium/ Copper/Manganese/ Zinc 1 ml/Insulin Human Regular 8 units/Amino Acids/ Dextrose/Purified Water 1,201.0262 ml @ 50 mls/hr Q24H2M IV 07/15/24 22:00 07/16/24 21:59 07/15/24 20:00 Micafungin Sodium 100 mg/Sodium Chloride 100 ml @ 100 mls/hr DAILY IV 07/15/24 17:00 07/16/24 08:53 Fat Emulsion Intravenous 100 ml/Sodium Phosphate 30 meq/ Potassium Chloride 50 meq/ Calcium Gluconate 2.3 meq/Magnesium Sulfate 14 meq/ Multivitamins 10 ml/Chromium/ Copper/Manganese/ Zinc 1 ml/Insulin Human Regular 10 units/Dextrose/ Purified Water/ Amino Acids 1,352.0462 ml @ 56 mls/hr Q24H9M IV 07/16/24 22:00 07/17/24 21:59 Vital Signs Vital Signs Date Time Temp Pulse Resp B/P (MAP) Pulse Ox O2 Delivery O2 Flow Rate FiO2 07/16/24 14:58 87 20 97 07/16/24 14:11 95/57 07/16/24 14:00 Oxymizer 8 N/A 07/16/24 12:00 98.9 98.9 Labs/Diagnostic Data Labs Test 07/16/24 11:47 07/16/24 04:10 07/15/24 03:35 07/14/24 08:25 Range/Units POC Glucose 333 H 70-106 mg/dl White Blood Count 8.1 4.4-10.8 10^3/uL Red Blood Count 4.37 L 4.5-5.90 10^6/uL Hemoglobin 12.9 L 13.5-17.5 g/dL Hematocrit 38.9 #L 41.0-53.0 % Mean Corpuscular Volume 89.0 80.0-100.0 fL Mean Corpuscular Hemoglobin 29.4 28.0-32.0 pg Mean Corpuscular Hemoglobin Concent 33.1 32.0-36.0 g/dL Red Cell Distribution Width 14.1 11.8-14.3 % Platelet Count 479 H 140-450 10^3/uL Mean Platelet Volume 7.5 6.9-10.8 fL Neutrophils (%) (Auto) 80.0 37.0-80.0 % Lymphocytes (%) (Auto) 13.5 10.0-50.0 % Monocytes (%) (Auto) 6.2 0.0-12.0 % Eosinophils (%) (Auto) 0.1 0.0-7.0 % Basophils (%) (Auto) 0.2 0.0-2.0 % Neutrophils # (Auto) 6.5 1.6-8.6 10 ^3/uL Lymphocytes # (Auto) 1.1 0.4-5.4 10 ^3/uL Monocytes # (Auto) 0.5 0-1.3 10 ^3/uL Eosinophils # (Auto) 0 0-0.8 10 ^3/uL Basophils # (Auto) 0 0-0.2 10 ^3/uL Nucleated Red Blood Cells 0.0 % Sodium Level 138 136-145 mmol/L Potassium Level 4.1 3.5-5.1 mmol/L Chloride Level 101 98-107 mmol/L Carbon Dioxide Level 30 20-31 mmol/L Anion Gap 7 5-15 Blood Urea Nitrogen 11 9-23 mg/dL Creatinine 0.63 L 0.700-1.30 mg/dL Glomerular Filtration Rate Calc 117 >90 mL/min BUN/Creatinine Ratio 17.5 10.0-20.0 Serum Glucose 78 # 74-106 mg/dL Calcium Level 8.6 L 8.7-10.4 mg/dL Phosphorus Level 3.1 2.4-5.1 mg/dL Magnesium Level 1.8 1.6-2.6 mg/dL Total Bilirubin 0.4 0.2-1.0 mg/dL Aspartate Amino Transferase (AST) 9 L 13-40 U/L Alanine Aminotransferase (ALT) 11 7-40 U/L Alkaline Phosphatase 96 46-116 U/L Total Protein 6.6 5.7-8.2 g/dL Albumin 3.1 L 3.2-4.8 g/dL Triglycerides Level 113 < 150 mg/dL Prothrombin Time 16.3 H 9.3-11.8 sec Prothrombin Time INR 1.59 H 0.9-1.15 Test 07/14/24 07:55 07/13/24 15:24 07/13/24 11:25 07/12/24 10:22 Range/Units Blood Gas Specimen Type Arterial Blood Gas Sample Site Right radial Blood Gas Patient Temperature 37.0 Arterial Blood Date Drawn [id number] Arterial Blood pH 7.514 H 7.350-7.450 Arterial Blood Partial Pressure CO2 39.7 35.0-48.0 mmHg Arterial Blood Partial Pressure O2 97.7 83.0-108.0 mmHg Arterial Blood HCO3 31.3 H 21.0-28.0 mmol/L Arterial Blood Oxygen Saturation 97.6 94.0-98.0 % Arterial Blood Base Excess 7.7 H -2.0-3.0 mmol/L Arterial Blood Oxyhemoglobin 96.9 94.0-98.0 % Arterial Blood Carboxyhemoglobin 0.4 L 0.5-1.5 % Arterial Blood Methemoglobin 0.3 0.0-1.5 % Serge Test Yes Blood Gas Total Hemoglobin 11.50 L 13.5-17.5 g/dL Blood Gas Set Respiration Rate 12.0 Blood Gas Modality Mask - bipap FiO2 % 90.0 Blood Gas EPAP 5 Blood Gas IPAP 12 Blood Gas Critical Value Read Back yes Blood Gas Notified Whom Richa santana md Blood Gas Notified Time [id number] Blood Gas Notified By Chele key Blood Gas Liter Flow 15.00 Blood Gas Spontaneous Rate 22 Blood Gas Spontaneous Tidal Volume 559 Test 07/10/24 03:01 07/09/24 10:33 07/08/24 20:00 07/08/24 10:00 Range/Units Differential Total Cells Counted 100.0 100 Neutrophils % (Manual) 97 H 37.0-80.0 Band Neutrophils % (Manual) 0 Lymphocytes % (Manual) 2 L 10.0-50.0 Monocytes % (Manual) 1 0-12 Eosinophils % (Manual) 0 0-7 Basophils % (Manual) 0 0.0-2.0 Metamyelocytes % (manual) 0 Myelocytes % (Manual) 0 Promyelocytes % (Manual) 0 Blast Cells % (Manual) 0 Reactive Lymphocytes 0 Smudge Cells 1 /100 WBC Platelet Estimate Adequate Blood Gas Pressure Support 8 Blood Gas PEEP or CPAP 5.0 Blood Gas Comments Vancomycin Level Trough 11.7 H 5-10 ug/mL Test 07/08/24 03:31 07/07/24 06:15 07/04/24 10:38 07/04/24 03:42 Range/Units Large Platelets Few Anisocytosis (manual) Slight Blood Gas Tidal Volume 500.0 Stool Occult Blood Positive Negative Stool Occult Blood Sample #3 Negative Cholesterol Level 117 < 200 mg/dL LDL Cholesterol 38 < 100 mg/dL HDL Cholesterol 42 40-59 mg/dL Lipase 56 H 12-53 U/L Thyroid Stimulating Hormone (TSH) 0.38 L 0.55-4.78 uIU/mL Test 07/03/24 16:51 07/03/24 10:06 07/02/24 23:08 07/02/24 21:15 Range/Units Urine Opiates Screen Neg NEGATIVE Urine Fentanyl Screen Neg NEGATIVE Urine Barbiturates Screen Neg NEGATIVE Urine Phencyclidine Screen Neg NEGATIVE Urine Amphetamines Screen Neg NEGATIVE Urine Benzodiazepines Screen Pos NEGATIVE Urine Cocaine Screen Neg NEGATIVE Urine Cannabinoids Screen Neg NEGATIVE Hemoglobin A1c > 14.0 H <5.7 % A1C Urine Color Light-yellow Yellow Urine Clarity Clear Clear Urine pH 5.0 5.0-9.0 Urine Specific [place] 1.025 1.001-1.035 Urine Protein Negative Negative Urine Ketones 4+ H Negative Urine Blood Negative Negative /uL Urine Nitrite Negative Negative Urine Bilirubin Negative Negative Urine Urobilinogen Normal Negative mg/dL Urine Leukocyte Esterase Negative Negative /uL Urine RBC <1 0 - 3 /hpf Urine WBC 1 0 - 3 /hpf Urine Squamous Epithelial Cells None seen <5 /hpf Urine Bacteria None seen None Seen /hpf Urine Glucose 4+ H Normal mg/dL Venous Blood pH 7.179 *L 7.320-7.430 Venous Blood pCO2 at Patient Temp 17.8 L 38.0-54.0 mmHg Venous Blood pO2 at Patient Temp 70.7 H 23.0-48.0 mmHg Venous Blood HCO3 6.5 L 22.0-29.0 mmol/L Venous Blood Base Excess -19.6 L -2.0-3.0 mmol/L Serum Osmolality 354 H 278-298 mOsm/kg Test 07/02/24 20:57 Range/Units Lactic Acid Level 1.0 0.4-2.0 mmol/L Beta-Hydroxybutyric Acid > 4.500 H < 0.4 mmol/L Microbiology Date/Time Source Procedure Growth Status 07/13/24 16:02 Urine - [place] Urine Culture - Preliminary Resulted 07/08/24 18:27 Other - Final Resulted 07/08/24 18:27 Other - Final Resulted 07/08/24 18:27 Other Pending Resulted 07/08/24 18:27 Other Pending Resulted 07/08/24 18:27 Other - Final See Separate Report... Resulted 07/08/24 18:27 Bronchial Washings Gram Stain - Final Complete 07/08/24 18:27 Respiratory Culture - Final Staphylococcus aureus Stenotrophomonas maltophilia Complete 07/03/24 19:35 Blood Blood Culture - Final Staph hominis subsp homins Complete Assessment [id number] AFEBRILE VSS RECOVERING FROM DKA AND ONGOING SEPSIS NON HEALING LOW BACK WOUND CONSIDER URGENT TISSUE DEBRIDEMENT LOW BACK WOUND IF CLEARED MEDICALLY Plan discussed with: Patient MARYAM CONTRERAS MD Jul 16, 2024 16:10
[2024-07-16] MEDS: PHYTONADIONE (VIT K)10 MG/ML 1ML VIAL SUBCUT SCH (17:16)
[2024-07-16] MEDS: FAT EMULSION IV NR (22:00)
[2024-07-16] MEDS: SODIUM PHOSPHATES IV NR (22:00)
[2024-07-16] MEDS: POTASSIUM CHLORIDE IV NR (22:00)
[2024-07-16] MEDS: [UNRECOGNIZED DRUG - OTHER] IV NR (22:00)
--- NOTE | 2024-07-16 23:51 | DVHINCON2 ---
DATE OF CONSULTATION: 07/16/2024 HISTORY OF PRESENT ILLNESS: This patient is admitted on 07/02/2024. He is 49 years old with history of diabetes, chronic kidney disease, presented with DKA, altered mental status and then ongoing mobility causing sacral decubitus ulceration and became septic and he was treated for sepsis and now I have been asked to see with regards to possible tissue debridement of his low back wound. PAST MEDICAL HISTORY: Diabetes. PAST SURGICAL HISTORY: As per the records. PHYSICAL EXAMINATION: VITAL SIGNS: Afebrile, stable signs. HEENT: With no evidence of pallor, cyanosis, or jaundice. NECK: Supple, nontender with no thyromegaly, lymphadenopathy. CHEST AND LUNGS: Clear. HEART: Within normal limits. ABDOMEN: Soft. NEUROLOGIC: Not assessed. White cell count is normal limits and examination of his low back reveals a necrotic skin area on his low back wound. PLAN: Will be to consider urgent tissue debridement of the low back wound based upon clearance for surgery. MD KENTON Galindo/SANDRITA TID: [id number] RECEIPT: [id number] cc: Zechariah Horta MD
[2024-07-17] VITALS (103 sets, daily range): BP systolic 87–140; BP diastolic 45–80; PULSE 73–90; RESP 14–29; TEMP 97.6–98.9; O2SAT 90–100
--- NOTE | 2024-07-17 05:28 | DVH ---
CHEST RADIOGRAPH Indication:pna Technique: Single frontal view of the chest was obtained Comparison: XY CHEST PORTABLE on DOS: 07/16/24, XY CHEST PORTABLE on DOS: 07/15/24, XY CHEST PORTABLE on DOS: 07/13/24, XY CHEST PORTABLE on DOS: 07/13/24, XY CHEST PORTABLE on DOS: 07/12/24, XY CHEST PO RTABLE on DOS: 07/16/24 FINDINGS: Lines and Tubes: Right PICC terminates in the superior vena cava. Lungs: Bilateral consolidation is similar to prior study. Pleura: No effusion. No pneumothorax. Cardiomediastinal contours: Unremarkable Bones: No acute osseous abnormality. IMPRESSION: 1. Multifocal airspace disease which may reflect pneumonia.
[2024-07-17 05:40] LABS: Basophils # (auto) 0 10 ^3/uL (0-0.2); Basophils % (auto) 0.2 % (0.0-2.0); Eosinophils # (auto) 0.1 10 ^3/uL (0-0.8); Hematocrit 36.2 % (41.0-53.0); Hemoglobin 12.4 g/dL (13.5-17.5); Lymphocytes # (auto) 1.2 10 ^3/uL (0.4-5.4); Lymphocytes % (auto) 12.8 % (10.0-50.0); Mean Corpuscular Hemoglobin 29.8 pg (28.0-32.0); Mean Corpuscular Hgb Conc. 34.2 g/dL (32.0-36.0); Monocytes # (auto) 0.8 10 ^3/uL (0-1.3); Monocytes % (auto) 8.3 % (0.0-12.0); Neutrophils % (auto) 77.7 % (37.0-80.0); Platelet Count (auto) 412 10^3/uL (140-450); Red Blood Cells 4.16 10^6/uL (4.5-5.90); Red Cell Distribution Width 13.7 % (11.8-14.3); White Blood Cell 9.1 10^3/uL (4.4-10.8)
[2024-07-17 05:56] LABS: Albumin 2.8 g/dL (3.2-4.8); Alkaline Phosphatase 93 U/L (46-116); Anion Gap 5 (5-15); Aspartate Aminotransferase 10 U/L (13-40); BUN/Creatinine Ratio 11.3 (10.0-20.0); Bilirubin, Total 0.5 mg/dL (0.2-1.0); Blood Urea Nitrogen 6 mg/dL (9-23); Calcium 8.6 mg/dL (8.7-10.4); Carbon Dioxide 27 mmol/L (20-31); Chloride 101 mmol/L (98-107); Glucose 139 mg/dL (74-106); Magnesium 1.8 mg/dL (1.6-2.6); Phosphorus 2.4 mg/dL (2.4-5.1); Potassium 4.1 mmol/L (3.5-5.1)
[2024-07-17 05:57] LABS: Total Protein 6.6 g/dL (5.7-8.2)
[2024-07-17 06:07] LABS: Alanine Aminotransferase < 9 U/L (7-40); Sodium 133 mmol/L (136-145)
[2024-07-17 08:19] LABS: INR 1.23 (0.9-1.15); Partial Thromboplastin Time 34.5 SEC (24.5-34.5); Prothrombin Time 12.8 sec (9.3-11.8)
[2024-07-17] MEDS: SODIUM PHOSPHATES 20 MEQ in SODIUM CHL 0.9% 100 ML IV ONE (11:13)
--- NOTE | 2024-07-17 11:56 | DVHPN2 ---
Subjective He is doing better 3 L oxygen now Still complains of some cough Chest x-ray still shows multi focal airspace disease, slightly improved Changes from previous H/P or p: Changes Eyes: No Pain, No Vision change, No Conjunctivae inflammation, No Eyelid inflammation, No Other, No Redness ENT: No Ear pain, No Ear discharge, No Nose pain, No Nose discharge, No Nose congestion, No Mouth pain, No Mouth swelling, No Throat pain, No Throat swelling, No Other Cardiovascular: No Chest Pain, No Palpitations, No Orthopnea, No Paroxysmal Noc. Dyspnea, No Edema, No Lt Headedness, No Other Respiratory: No Cough, No Dry, No Shortness of breath, No SOB with excertion, No Wheezing, No Hemoptysis, No Pleuritic Pain, No Sputum, No Other Gastrointestinal: No Nausea, No Vomiting, No Abdominal Pain, No Diarrhea, No Constipation, No Melena, No Hematochezia, No Other Genitourinary: No Dysuria, No Frequency, No Incontinence, No Hematuria, No Retention, No Other Musculoskeletal: No other, No neck pain, No shoulder pain, No arm pain, No back pain, No hand pain, No leg pain, No foot pain Skin: No Rash, No Lesions, No Jaundice, No Bruising, No Other Objective Vitals Vital Signs Date Time Temp Pulse Resp B/P (MAP) Pulse Ox O2 Delivery O2 Flow Rate FiO2 07/17/24 10:26 76 25 100 07/17/24 10:16 Nasal Cannula 3.0 07/17/24 10:16 32 07/17/24 09:34 94/53 07/17/24 04:00 98.7 98.7 Intake/Output Intake and Output 07/17/24 07:00 Intake Total 3523.749 ml Output Total 5325 ml Balance -1801.251 ml Intake Oral 1150 ml IV Total 2373.749 ml Output Urine Total 5325 ml General Appearance: Alert (Somnolent, off sedation), Oriented X3, Cooperative, No acute distress Lungs: Clear to auscultation, Normal air movement Chest/Breasts: Other (Bilateral rhonchi and crackles diffusely) Cardiovascular: Regular rate, Normal S1 Abdomen: Normal bowel sounds, Soft, No tenderness Extremities: No edema Medications Current Medications Medications Dose Ordered Sig/Sandra Route Start Time Stop Time Status Last Admin Dose Admin Ondansetron HCl 4 mg Q4HP PRN IV 07/02/24 23:15 07/13/24 20:21 4 MG Nitroglycerin 0.4 mg Q5MINP PRN SL 07/02/24 23:15 Acetaminophen 650 mg Q6HP PRN GT 07/03/24 12:30 Hold 07/04/24 03:53 650 MG Enoxaparin Sodium 40 mg DAILY SC 07/04/24 10:00 07/17/24 09:05 40 MG Insulin Glargine 10 units BID@0700,2200 SC 07/03/24 22:00 07/17/24 06:33 10 UNITS Lorazepam 0.5 mg Q4HR PRN IV 07/09/24 14:30 07/13/24 09:39 0.5 MG Levalbuterol HCl 0.625 mg Q4HWA [facility] 07/10/24 06:00 07/17/24 06:40 0.625 MG Morphine Sulfate 2 mg Q4HPRN PRN IV 07/10/24 11:00 07/17/24 09:04 2 MG Pantoprazole Sodium 40 mg DAILY IV 07/12/24 13:45 07/17/24 09:05 40 MG Propofol 100 ml @ 2.22 mls/hr Q24H IV 07/13/24 08:00 Cancel Trimethoprim/ Sulfamethoxazole 10 ml @ 0 mls/hr PER PHARMACY IV 07/13/24 10:45 Trimethoprim/ Sulfamethoxazole 22.5 ml/Dextrose 522.5 ml @ 348.333 mls/hr Q8HR IV 07/13/24 14:00 07/17/24 05:45 348.333 MLS/HR Budesonide 0.5 mg BID NEB 07/13/24 22:00 07/17/24 10:14 0.5 MG Amino Acids 0 ml @ 0 mls/hr PER PHARMACY IV 07/14/24 12:45 Diagnostic Test (Pha) 1 strip Q6HR 07/14/24 18:00 07/17/24 06:00 1 STRIP Insulin Human Regular FOLLOW SLIDING SCALE Q6HR SC 07/14/24 18:00 07/17/24 11:52 12 UNITS Dextrose 50 ml UD IV 07/14/24 14:00 Sodium Chloride 10 ml QSHIFT@ IV 07/14/24 22:00 07/17/24 09:05 10 ML Norepinephrine Bitartrate 250 ml @ 3.75 mls/hr Q24H IV 07/15/24 13:30 07/17/24 07:19 7.5 MLS/HR Micafungin Sodium 100 mg/Sodium Chloride 100 ml @ 100 mls/hr DAILY IV 07/15/24 17:00 07/17/24 09:04 100 MLS/HR Fat Emulsion Intravenous 100 ml/Sodium Phosphate 30 meq/ Potassium Chloride 50 meq/ Calcium Gluconate 2.3 meq/Magnesium Sulfate 14 meq/ Multivitamins 10 ml/Chromium/ Copper/Manganese/ Zinc 1 ml/Insulin Human Regular 10 units/Dextrose/ Purified Water/ Amino Acids 1,352.0462 ml @ 56 mls/hr Q24H9M IV 07/16/24 22:00 07/17/24 21:59 Fat Emulsion Intravenous 150 ml/Sodium Chloride 20 meq/ Sodium Acetate 20 meq/Sodium Phosphate 20 meq/ Potassium Chloride 40 meq/ Potassium Phosphate 22 meq/ Calcium Gluconate 2.3 meq/Magnesium Sulfate 16 meq/ Multivitamins 10 ml/Chromium/ Copper/Manganese/ Zinc 1 ml/Insulin Human Regular... 1,315.0862 ml @ 55 mls/hr [id number] IV 07/17/24 20:00 07/18/24 19:59 Laboratory Results Laboratory Tests 07/17/24 05:00 Chemistry Test 07/17/24 05:00 Albumin 2.8 g/dL (3.2-4.8) L Calcium Level 8.6 mg/dL (8.7-10.4) L Magnesium Level 1.8 mg/dL (1.6-2.6) Phosphorus Level 2.4 mg/dL (2.4-5.1) Total Protein 6.6 g/dL (5.7-8.2) Coagulation Test 07/17/24 07:37 Prothrombin Time 12.8 sec (9.3-11.8) H Prothrombin Time INR 1.23 (0.9-1.15) H Activated Partial Thromboplast Time 34.5 SEC (24.5-34.5) LFT Test 07/17/24 05:00 Alanine Aminotransferase (ALT) < 9 U/L (7-40) Alkaline Phosphatase 93 U/L (46-116) Aspartate Amino Transferase (AST) 10 U/L (13-40) L Total Bilirubin 0.5 mg/dL (0.2-1.0) Urinalysis Test 07/02/24 23:08 Urine Color Light-yellow (Yellow) Urine Clarity Clear (Clear) Urine pH 5.0 (5.0-9.0) Urine Specific [place] 1.025 (1.001-1.035) Urine Protein Negative (Negative) Urine Ketones 4+ (Negative) H Urine Blood Negative /uL (Negative) Urine Nitrite Negative (Negative) Urine Bilirubin Negative (Negative) Urine Urobilinogen Normal mg/dL (Negative) Urine Leukocyte Esterase Negative /uL (Negative) Urine RBC <1 /hpf (0 - 3) Urine WBC 1 /hpf (0 - 3) Urine Squamous Epithelial Cells None seen /hpf (<5) Urine Bacteria None seen /hpf (None Seen) Urine Glucose 4+ mg/dL (Normal) H Microbiology Microbiology Date/Time Source Procedure Growth Status 07/13/24 16:02 Urine - [place] Urine Culture - Final Yeast, not Araceli albicans Complete 07/08/24 18:27 Other - Final Resulted 07/08/24 18:27 Other - Final Resulted 07/08/24 18:27 Other Pending Resulted 07/08/24 18:27 Other Pending Resulted 07/08/24 18:27 Other - Final See Separate Report... Resulted 07/08/24 18:27 Bronchial Washings Gram Stain - Final Complete 07/08/24 18:27 Respiratory Culture - Final Staphylococcus aureus Stenotrophomonas maltophilia Complete 07/03/24 19:35 Blood Blood Culture - Final Staph hominis subsp homins Complete Assessment/Plan Assessment/Plan DKA, resolved DM, uncontrolled Acute hypoxic respiratory failure s/p intubation on mechanical ventilator ZOYA Sepsis w septic shock Hypernatremia Fever B feet ulcers Thrombocytopenia due to sepsis, improved Sacral decub ulcer PLAN: 07/03/2024: IV fluids, change to 1/2 NS Nephrology consult Vasopressors as needed Blood, urine and sputum cultures IV antibiotics: Empiric, change to Cefepime and Vanco Sedation as needed Start Lantus Full code Discussed with family at the bedside Advance directives discussed with family x 20 minutes 07/04/2024: Diarrhea: Check the stools for C diff ZOYA: Continue IV fluids Hypernatremia: Start free water Sepsis with septic shock: Continue cefepime and vancomycin Hypotension: Vasopressors Uterine cultures and respiratory cultures are Discussed with the family at the bedside Lantus 10 units twice a day Accu-Cheks q.4 hours 07/05/24: Continue IV fluids 1/2 NS Vancomycin + Cefepime Free water Minimize sedation Taper down Levophed Podiatry consult MRSA screen: Negative Lantus Discussed with at the bedside 07/06/24: Hypernatremia: Repeat labs Hypokalemia: Replace Vancomycin and Cefepime Continue free water 09/06/2024: Hypernatremia: Continue free water, start tube feeding with Glucerna , discontinue the IV fluids IV antibiotics: Cefepime and vancomycin Lantus Sliding scale Nephrology consult Pulmonary consult Discussed with the at the bedside Full code 07/08/2024: Continue free water to correct hypernatremia C-PAP trial in progress Wound infection with Staph aureus Sputum culture showed Staph aureus and Klebsiella pneumoniae and Citrobacter Blood culture with Staph home in his Cefepime and vancomycin Endoscopy for today Extubation possibly after bronchoscopy today 07/09/24: Change IV antibiotics to Levaquin and Diflucan Free water Hold sedation C-PAP, extubate? Replace K+ Discussed with at the bedside 07/10/24: Start IV D5W Swallow eval PT eval IS Out of bed Suction IV Levaquin IV Diflucan Levophed, taper as tolerated Discussed with and sister at the bedside 07/12/2024: Due to fluid overload, chest x-ray shows congestion: DC the IV fluids, Lasix IV 40 mg x 1, Hypokalemia: Replace p.o. DC the [place] Out of bed as tolerated Physical therapy IV antibiotics: Levofloxacin and Diflucan Off the Levophed drip 07/13/2024: Give more Lasix 40 mg IV Continue IV Levaquin and Diflucan Replace potassium Downgrade to the EWA Continue physical therapy Continue med nebs with Mucomyst Discussed with the at the bedside : Sacral ulcer: consult Sx Pulmonary congestion: Lasix 40 mg IV Pneumonia: Bactrim & Micafungin IV Sepsis w septic shock: Levophed Lovenox Protonix Physical therapy 07/17/2024: Give more Lasix 40 mg IV once Continue IV antibiotics with Bactrim and micafungin General surgery is planning on surgery on decubitus ulcer of the sacrum on Friday Coagulopathy to be corrected with vitamin K Plan discussed with: Patient, Spouse My Orders Orders - MEHRAN GUERRERO MD Procedure Category Date Status Time Mechanical Soft Diet DIET 07/17/24 Transmitted Breakfast Transfer Orders XFER 07/17/24 Transmitted 01:54 Date of Service: Jul 17, 2024 Billing Provider: MEHRAN GUERRERO MD Common Visit Codes: [id number] INP/OBS CARE(HIGH) MEHRAN GUERRERO MD Jul 17, 2024 11:55
[2024-07-17] MEDS: FUROSEMIDE 40 MG/4 ML VIAL IV ONE (13:02)
--- NOTE | 2024-07-17 17:58 | DVHINCON2 ---
DATE OF CONSULTATION: 07/17/2024 PULMONARY FOLLOWUP HISTORY OF PRESENT ILLNESS: The patient was seen in the morning. I am covering for Dr. Goodman. The patient has been extubated, is awake, is denying any significant pain or shortness of breath, is lying comfortably in bed. Also, discussed with Dr. Saucedo. The patient's is also at bedside. The patient has no significant cough or expectoration. PAST MEDICAL HISTORY: Reviewed. MEDICATIONS: Reviewed. PHYSICAL EXAMINATION: VITAL SIGNS: Afebrile, heart rate 75, respiratory rate 24, saturations 97 on 3 liters nasal cannula. HEENT: Unremarkable. Awake and alert. NECK: Supple. No JVD. CHEST: Reveals bilateral rales, no wheezing. Air entry fair. ABDOMEN: Soft, nontender, bowel sounds normal. EXTREMITIES: No edema. LABORATORY WORK: Noted. Chest x-ray shows bilateral infiltrates. WBC 9.1, hematocrit 36. Last blood gas from 07/14/2024 was noted when the patient was on BiPAP at 90%. Other lab work, sodium 133. Rest of CMP unremarkable. INR 1.23. Cultures: Urine culture had grown yeast. Bronchial washings are growing Staph aureus and Stenotrophomonas maltophilia. Previously, urine culture had grown E. coli and Enterococcus. IMPRESSION: Acute respiratory failure, off BiPAP. The patient has bilateral pneumonia. Also, has history of diabetes ketoacidosis, now resolved, history of diabetes. The patient also has history of sacral decubitus ulcer. PLAN: At this time is to continue antibiotics. Titrate oxygen as tolerated. If the patient's room air saturations are greater than 90, can discontinue oxygen. The patient is tolerating p.o. and plan is to discontinue TPN. Continue micafungin. The patient is also on Bactrim for Stenotrophomonas. The patient remains on Lovenox. Incentive spirometry. Rest of the management per response and course in hospital. MD AUBREY Driver/JOSE TID: [id number] RECEIPT: [id number] cc: Quynh Saucedo MD
[2024-07-17] MEDS ORDERED: TPN PER PHARMACY IV NR (20:00)
[2024-07-18] VITALS (104 sets, daily range): BP systolic 71–151; BP diastolic 36–85; PULSE 70–94; RESP 12–32; TEMP 98–98.5; O2SAT 5–100
[2024-07-18 04:20] LABS: Hematocrit 34.3 % (41.0-53.0); Hemoglobin 11.6 g/dL (13.5-17.5); Mean Corpuscular Hemoglobin 29.7 pg (28.0-32.0); Mean Corpuscular Hgb Conc. 33.9 g/dL (32.0-36.0); Mean Corpuscular Volume 87.6 fL (80.0-100.0); Platelet Count (auto) 369 10^3/uL (140-450); Red Blood Cells 3.92 10^6/uL (4.5-5.90); Red Cell Distribution Width 13.5 % (11.8-14.3); White Blood Cell 10.9 10^3/uL (4.4-10.8)
[2024-07-18 04:22] LABS: Band Neutrophils % (manual) 0; Basophils % (manual) 0 (0.0-2.0); Metamyelocytes % 0; Myelocytes % 0
[2024-07-18 04:23] LABS: Blast Cells 0; Promyelocytes % 0; Reactive Lymphocytes 0
[2024-07-18 04:31] LABS: INR 1.13 (0.9-1.15); Partial Thromboplastin Time 29.6 SEC (24.5-34.5); Prothrombin Time 11.9 sec (9.3-11.8)
[2024-07-18 04:35] LABS: Albumin 2.8 g/dL (3.2-4.8); Alkaline Phosphatase 96 U/L (46-116); Anion Gap 5 (5-15); Aspartate Aminotransferase 12 U/L (13-40); BUN/Creatinine Ratio 13.1 (10.0-20.0); Bilirubin, Total 0.4 mg/dL (0.2-1.0); Blood Urea Nitrogen 8 mg/dL (9-23); Calcium 8.4 mg/dL (8.7-10.4); Carbon Dioxide 25 mmol/L (20-31); Chloride 99 mmol/L (98-107); Magnesium 1.7 mg/dL (1.6-2.6); Phosphorus 2.3 mg/dL (2.4-5.1); Potassium 4.4 mmol/L (3.5-5.1); Sodium 129 mmol/L (136-145); Total Protein 6.3 g/dL (5.7-8.2)
[2024-07-18 04:36] LABS: Alanine Aminotransferase < 9 U/L (7-40); Glucose 297 mg/dL (74-106)
[2024-07-18 05:21] LABS: Eosinophils % (manual) 1 (0-7); Lymphocytes % (manual) 14 (10.0-50.0); Monocytes % (manual) 5 (0-12); Platelet Estimate Adequate
[2024-07-18] MEDS ORDERED: DEXTROSE (50%) 50ML SYRG IV PRN (06:30)
[2024-07-18] MEDS: InsuLIN REG 1unit/0.01ml Soln (100units/ml) SC SCH ×2 (06:46→21:36)
[2024-07-18] MEDS: ACCU-CHEK COMFORT CURVE STRIP VI SCH (06:47)
--- NOTE | 2024-07-18 11:01 | DVHPN2 ---
Subjective Doing better He is on 2 L nasal cannula now Eating well Changes from previous H/P or p: Changes Eyes: No Pain, No Vision change, No Conjunctivae inflammation, No Eyelid inflammation, No Other, No Redness ENT: No Ear pain, No Ear discharge, No Nose pain, No Nose discharge, No Nose congestion, No Mouth pain, No Mouth swelling, No Throat pain, No Throat swelling, No Other Cardiovascular: No Chest Pain, No Palpitations, No Orthopnea, No Paroxysmal Noc. Dyspnea, No Edema, No Lt Headedness, No Other Respiratory: No Cough, No Dry, No Shortness of breath, No SOB with excertion, No Wheezing, No Hemoptysis, No Pleuritic Pain, No Sputum, No Other Gastrointestinal: No Nausea, No Vomiting, No Abdominal Pain, No Diarrhea, No Constipation, No Melena, No Hematochezia, No Other Genitourinary: No Dysuria, No Frequency, No Incontinence, No Hematuria, No Retention, No Other Musculoskeletal: No other, No neck pain, No shoulder pain, No arm pain, No back pain, No hand pain, No leg pain, No foot pain Skin: No Rash, No Lesions, No Jaundice, No Bruising, No Other Objective Vitals Vital Signs Date Time Temp Pulse Resp B/P (MAP) Pulse Ox O2 Delivery O2 Flow Rate FiO2 07/18/24 10:00 83 24 101/52 (68) 98 07/18/24 08:20 Nasal Cannula* 2 28 07/18/24 04:00 98.2 98.2 Intake/Output Intake and Output 07/18/24 07:00 Intake Total 3348.749 ml Output Total 3800 ml Balance -451.251 ml Intake Oral 1400 ml IV Total 1948.749 ml Output Urine Total 3800 ml General Appearance: Alert (Somnolent, off sedation), Oriented X3, Cooperative, No acute distress Lungs: Clear to auscultation, Normal air movement Chest/Breasts: Other (Bilateral rhonchi and crackles diffusely) Cardiovascular: Regular rate, Normal S1 Abdomen: Normal bowel sounds, Soft, No tenderness Extremities: No edema Medications Current Medications Medications Dose Ordered Sig/Sandra Route Start Time Stop Time Status Last Admin Dose Admin Ondansetron HCl 4 mg Q4HP PRN IV 07/02/24 23:15 07/13/24 20:21 4 MG Nitroglycerin 0.4 mg Q5MINP PRN SL 07/02/24 23:15 Acetaminophen 650 mg Q6HP PRN GT 07/03/24 12:30 Hold 07/04/24 03:53 650 MG Enoxaparin Sodium 40 mg DAILY SC 07/04/24 10:00 07/18/24 10:31 40 MG Insulin Glargine 10 units BID@0700,2200 SC 07/03/24 22:00 07/18/24 06:47 10 UNITS Lorazepam 0.5 mg Q4HR PRN IV 07/09/24 14:30 07/18/24 06:41 0.5 MG Levalbuterol HCl 0.625 mg Q4HWA NEB 07/10/24 06:00 07/18/24 06:43 0.625 MG Morphine Sulfate 2 mg Q4HPRN PRN IV 07/10/24 11:00 07/18/24 02:23 2 MG Pantoprazole Sodium 40 mg DAILY IV 07/12/24 13:45 07/18/24 10:31 40 MG Propofol 100 ml @ 2.22 mls/hr Q24H IV 07/13/24 08:00 Cancel Trimethoprim/ Sulfamethoxazole 10 ml @ 0 mls/hr PER PHARMACY IV 07/13/24 10:45 Trimethoprim/ Sulfamethoxazole 22.5 ml/Dextrose 522.5 ml @ 348.333 mls/hr Q8HR IV 07/13/24 14:00 07/18/24 05:24 348.333 MLS/HR Budesonide 0.5 mg BID NEB 07/13/24 22:00 07/17/24 19:26 0.5 MG Sodium Chloride 10 ml QSHIFT@10,22 IV 07/14/24 22:00 07/18/24 10:31 10 ML Norepinephrine Bitartrate 250 ml @ 3.75 mls/hr Q24H IV 07/15/24 13:30 07/17/24 07:19 7.5 MLS/HR Micafungin Sodium 100 mg/Sodium Chloride 100 ml @ 100 mls/hr DAILY IV 07/15/24 17:00 07/18/24 10:31 100 MLS/HR Diagnostic Test (Pha) 1 strip ACHS 07/18/24 07:00 07/18/24 06:47 1 STRIP Insulin Human Regular HS SC 07/18/24 22:00 Insulin Human Regular AC SC 07/18/24 07:00 07/18/24 06:46 12 UNITS Dextrose 50 ml UD PRN IV 07/18/24 06:30 Laboratory Results Laboratory Tests 07/18/24 03:20 Chemistry Test 07/18/24 03:20 Albumin 2.8 g/dL (3.2-4.8) L Calcium Level 8.4 mg/dL (8.7-10.4) L Magnesium Level 1.7 mg/dL (1.6-2.6) Phosphorus Level 2.3 mg/dL (2.4-5.1) L Total Protein 6.3 g/dL (5.7-8.2) Coagulation Test 07/18/24 03:20 Prothrombin Time 11.9 sec (9.3-11.8) H Prothrombin Time INR 1.13 (0.9-1.15) Activated Partial Thromboplast Time 29.6 SEC (24.5-34.5) LFT Test 07/18/24 03:20 Alanine Aminotransferase (ALT) < 9 U/L (7-40) Alkaline Phosphatase 96 U/L (46-116) Aspartate Amino Transferase (AST) 12 U/L (13-40) L Total Bilirubin 0.4 mg/dL (0.2-1.0) Urinalysis Test 07/02/24 23:08 Urine Color Light-yellow (Yellow) Urine Clarity Clear (Clear) Urine pH 5.0 (5.0-9.0) Urine Specific [place] 1.025 (1.001-1.035) Urine Protein Negative (Negative) Urine Ketones 4+ (Negative) H Urine Blood Negative /uL (Negative) Urine Nitrite Negative (Negative) Urine Bilirubin Negative (Negative) Urine Urobilinogen Normal mg/dL (Negative) Urine Leukocyte Esterase Negative /uL (Negative) Urine RBC <1 /hpf (0 - 3) Urine WBC 1 /hpf (0 - 3) Urine Squamous Epithelial Cells None seen /hpf (<5) Urine Bacteria None seen /hpf (None Seen) Urine Glucose 4+ mg/dL (Normal) H Microbiology Microbiology Date/Time Source Procedure Growth Status 07/13/24 16:02 Urine - [place] Urine Culture - Final Yeast, not Araceli albicans Complete 07/08/24 18:27 Other - Final Resulted 07/08/24 18:27 Other - Final Resulted 07/08/24 18:27 Other Pending Resulted 07/08/24 18:27 Other Pending Resulted 07/08/24 18:27 Other - Final See Separate Report... Resulted 07/08/24 18:27 Bronchial Washings Gram Stain - Final Complete 07/08/24 18:27 Respiratory Culture - Final Staphylococcus aureus Stenotrophomonas maltophilia Complete 07/03/24 19:35 Blood Blood Culture - Final Staph hominis subsp homins Complete Assessment/Plan Assessment/Plan DKA, resolved DM, uncontrolled Acute hypoxic respiratory failure s/p intubation on mechanical ventilator ZOYA Sepsis w septic shock Hypernatremia Fever B feet ulcers Thrombocytopenia due to sepsis, improved Sacral decub ulcer PLAN: 07/03/2024: IV fluids, change to 1/2 NS Nephrology consult Vasopressors as needed Blood, urine and sputum cultures IV antibiotics: Empiric, change to Cefepime and Vanco Sedation as needed Start Lantus Full code Discussed with family at the bedside Advance directives discussed with family x 20 minutes 07/04/2024: Diarrhea: Check the stools for C diff ZOYA: Continue IV fluids Hypernatremia: Start free water Sepsis with septic shock: Continue cefepime and vancomycin Hypotension: Vasopressors Uterine cultures and respiratory cultures are Discussed with the family at the bedside Lantus 10 units twice a day Accu-Cheks q.4 hours 07/05/24: Continue IV fluids 1/2 NS Vancomycin + Cefepime Free water Minimize sedation Taper down Levophed Podiatry consult MRSA screen: Negative Lantus Discussed with at the bedside 07/06/24: Hypernatremia: Repeat labs Hypokalemia: Replace Vancomycin and Cefepime Continue free water 09/06/2024: Hypernatremia: Continue free water, start tube feeding with Glucerna , discontinue the IV fluids IV antibiotics: Cefepime and vancomycin Lantus Sliding scale Nephrology consult Pulmonary consult Discussed with the at the bedside Full code 07/08/2024: Continue free water to correct hypernatremia C-PAP trial in progress Wound infection with Staph aureus Sputum culture showed Staph aureus and Klebsiella pneumoniae and Citrobacter Blood culture with Staph home in his Cefepime and vancomycin Endoscopy for today Extubation possibly after bronchoscopy today 07/09/24: Change IV antibiotics to Levaquin and Diflucan Free water Hold sedation C-PAP, extubate? Replace K+ Discussed with at the bedside 07/10/24: Start IV D5W Swallow eval PT eval IS Out of bed Suction IV Levaquin IV Diflucan Levophed, taper as tolerated Discussed with and sister at the bedside 07/12/2024: Due to fluid overload, chest x-ray shows congestion: DC the IV fluids, Lasix IV 40 mg x 1, Hypokalemia: Replace p.o. DC the Torres Out of bed as tolerated Physical therapy IV antibiotics: Levofloxacin and Diflucan Off the Levophed drip 07/13/2024: Give more Lasix 40 mg IV Continue IV Levaquin and Diflucan Replace potassium Downgrade to the EWA Continue physical therapy Continue med nebs with Mucomyst Discussed with the at the bedside : Sacral ulcer: consult Sx Pulmonary congestion: Lasix 40 mg IV Pneumonia: Bactrim & Micafungin IV Sepsis w septic shock: Levophed Lovenox Protonix Physical therapy 07/17/2024: Give more Lasix 40 mg IV once Continue IV antibiotics with Bactrim and micafungin General surgery is planning on surgery on decubitus ulcer of the sacrum on Friday Coagulopathy to be corrected with vitamin K 07/18/2024: Coagulopathy is improved The patient is scheduled for surgery for his decubitus ulcer of the sacrum tomorrow Continue IV antibiotics Bactrim and micafungin Lasix 20 mg IV 1 dose Tapered the Levophed off as tolerated Discussed with the at the bedside Plan discussed with: Patient, Spouse Date of Service: Jul 18, 2024 Billing Provider: MEHRAN GUERRERO MD Common Visit Codes: [id number] INP/OBS CARE(HIGH) MEHRAN GUERRERO MD Jul 18, 2024 11:01
[2024-07-18] MEDS: FUROSEMIDE 20 MG/2 ML VIAL IV ONE (11:58)
[2024-07-18] MEDS: MAGNESIUM SULFATE 1GM/100ML 100 ML IV SCH (11:58)
--- NOTE | 2024-07-18 18:56 | DVHOP ---
DATE OF SURGERY: 07/18/2024 PULMONARY FOLLOWUP SUBJECTIVE: The patient is stable. The patient is now taking p.o. He denies any chest pain, shortness of breath, is able to lay flat. No fevers. The patient is in no acute distress. SUBJECTIVE: VITAL SIGNS: Afebrile, heart rate 80, respiratory rate 20, blood pressure 100/60, saturations were 94% on room air. NECK: Supple. No JVD. CHEST: Bilateral rales, left more than the right. Diminished air entry. ABDOMEN: Soft, nontender. Bowel sounds normal. EXTREMITIES: No edema. LABORATORY DATA: WBC 10, hematocrit 34, rest was noted. Serum chemistries significant for BUN is 8, phosphorus is 2.3. Rest was reviewed. IMPRESSION: Bilateral pneumonia; history of diabetic ketoacidosis, resolved; history of sepsis; history of acute kidney injury. The patient is status post extubation, now seems to be doing well. Follow saturations. If saturations fall below 90%, we would recommend oxygen supplementation. The patient is planned for decubitus debridement tomorrow. The patient should continue incentive spirometry. Continue antibiotics. Still has infiltrates. Would recommend a follow up x-ray in 1-2 days. Encourage ambulation, incentive spirometry, and physical therapy. The patient remains on Bactrim. Rest of the medications and response per hospital course. Dr. Goodman will resume pulmonary care in the morning. MD AUBREY Driver/TERESA TID: [id number] RECEIPT: [id number]
[2024-07-19] VITALS (105 sets, daily range): BP systolic 84–146; BP diastolic 39–81; PULSE 70–93; RESP 14–27; TEMP 97.5–98.3; O2SAT 5–100
[2024-07-19 04:05] LABS: Basophils # (auto) 0 10 ^3/uL (0-0.2); Basophils % (auto) 0.4 % (0.0-2.0); Eosinophils # (auto) 0.2 10 ^3/uL (0-0.8); Hematocrit 34.3 % (41.0-53.0); Hemoglobin 11.5 g/dL (13.5-17.5); Lymphocytes # (auto) 1.1 10 ^3/uL (0.4-5.4); Lymphocytes % (auto) 18.2 % (10.0-50.0); Mean Corpuscular Hemoglobin 29.1 pg (28.0-32.0); Mean Corpuscular Hgb Conc. 33.4 g/dL (32.0-36.0); Mean Corpuscular Volume 87.2 fL (80.0-100.0); Monocytes # (auto) 0.6 10 ^3/uL (0-1.3); Monocytes % (auto) 9.3 % (0.0-12.0); Neutrophils # (auto) 4.4 10 ^3/uL (1.6-8.6); Neutrophils % (auto) 69.1 % (37.0-80.0); Platelet Count (auto) 415 10^3/uL (140-450); Red Blood Cells 3.94 10^6/uL (4.5-5.90); Red Cell Distribution Width 13.2 % (11.8-14.3); White Blood Cell 6.3 10^3/uL (4.4-10.8)
[2024-07-19 04:21] LABS: Albumin 2.9 g/dL (3.2-4.8); Alkaline Phosphatase 90 U/L (46-116); Anion Gap 4 (5-15); Aspartate Aminotransferase 9 U/L (13-40); BUN/Creatinine Ratio 12.5 (10.0-20.0); Blood Urea Nitrogen 7 mg/dL (9-23); Calcium 8.5 mg/dL (8.7-10.4); Carbon Dioxide 28 mmol/L (20-31); Chloride 99 mmol/L (98-107); Glucose 210 mg/dL (74-106); Potassium 4.3 mmol/L (3.5-5.1); Sodium 131 mmol/L (136-145)
[2024-07-19 04:22] LABS: Bilirubin, Total 0.4 mg/dL (0.2-1.0); Total Protein 6.6 g/dL (5.7-8.2)
[2024-07-19 04:25] LABS: INR 1.1 (0.9-1.15); Partial Thromboplastin Time 34.3 SEC (24.5-34.5); Prothrombin Time 11.6 sec (9.3-11.8)
[2024-07-19 04:28] LABS: Alanine Aminotransferase < 9 U/L (7-40)
[2024-07-19 04:42] LABS: Magnesium 1.8 mg/dL (1.6-2.6)
--- NOTE | 2024-07-19 10:20 | DVHPN2 ---
Subjective No new complaints Scheduled for surgery for the sacral decubitus ulcer today Changes from previous H/P or p: Changes Eyes: No Pain, No Vision change, No Conjunctivae inflammation, No Eyelid inflammation, No Other, No Redness ENT: No Ear pain, No Ear discharge, No Nose pain, No Nose discharge, No Nose congestion, No Mouth pain, No Mouth swelling, No Throat pain, No Throat swelling, No Other Cardiovascular: No Chest Pain, No Palpitations, No Orthopnea, No Paroxysmal Noc. Dyspnea, No Edema, No Lt Headedness, No Other Respiratory: No Cough, No Dry, No Shortness of breath, No SOB with excertion, No Wheezing, No Hemoptysis, No Pleuritic Pain, No Sputum, No Other Gastrointestinal: No Nausea, No Vomiting, No Abdominal Pain, No Diarrhea, No Constipation, No Melena, No Hematochezia, No Other Genitourinary: No Dysuria, No Frequency, No Incontinence, No Hematuria, No Retention, No Other Musculoskeletal: No other, No neck pain, No shoulder pain, No arm pain, No back pain, No hand pain, No leg pain, No foot pain Skin: No Rash, No Lesions, No Jaundice, No Bruising, No Other Objective Vitals Vital Signs Date Time Temp Pulse Resp B/P (MAP) Pulse Ox O2 Delivery O2 Flow Rate FiO2 07/19/24 10:07 77 22 97/57 (70) 96 07/19/24 10:00 Nasal Cannula* 2 28 07/19/24 07:00 98.3 98.3 Intake/Output Intake and Output 07/19/24 07:00 Intake Total 3509.165 ml Output Total 3150 ml Balance 359.165 ml Intake Oral 920 ml IV Total 2589.165 ml Output Urine Total 3150 ml # Bowel Movements 1 General Appearance: Alert (Somnolent, off sedation), Oriented X3, Cooperative, No acute distress Lungs: Clear to auscultation, Normal air movement Chest/Breasts: Other (Bilateral rhonchi and crackles diffusely) Cardiovascular: Regular rate, Normal S1 Abdomen: Normal bowel sounds, Soft, No tenderness Extremities: No edema Medications Current Medications Medications Dose Ordered Sig/Sandra Route Start Time Stop Time Status Last Admin Dose Admin Ondansetron HCl 4 mg Q4HP PRN IV 07/02/24 23:15 07/13/24 20:21 4 MG Nitroglycerin 0.4 mg Q5MINP PRN SL 07/02/24 23:15 Acetaminophen 650 mg Q6HP PRN GT 07/03/24 12:30 Hold 07/04/24 03:53 650 MG Enoxaparin Sodium 40 mg DAILY SC 07/04/24 10:00 07/18/24 10:31 40 MG Insulin Glargine 10 units BID@0700,2200 SC 07/03/24 22:00 07/19/24 06:51 10 UNITS Lorazepam 0.5 mg Q4HR PRN IV 07/09/24 14:30 07/18/24 21:38 0.5 MG Levalbuterol HCl 0.625 mg Q4HWA NEB 07/10/24 06:00 07/19/24 10:14 0.625 MG Morphine Sulfate 2 mg Q4HPRN PRN IV 07/10/24 11:00 07/19/24 05:46 2 MG Pantoprazole Sodium 40 mg DAILY IV 07/12/24 13:45 07/19/24 09:01 40 MG Propofol 100 ml @ 2.22 mls/hr Q24H IV 07/13/24 08:00 Cancel Trimethoprim/ Sulfamethoxazole 10 ml @ 0 mls/hr PER PHARMACY IV 07/13/24 10:45 Trimethoprim/ Sulfamethoxazole 22.5 ml/Dextrose 522.5 ml @ 348.333 mls/hr Q8HR IV 07/13/24 14:00 07/19/24 05:42 348.333 MLS/HR Budesonide 0.5 mg BID NEB 07/13/24 22:00 07/19/24 10:14 0.5 MG Sodium Chloride 10 ml QSHIFT@10,22 IV 07/14/24 22:00 07/19/24 09:01 10 ML Norepinephrine Bitartrate 250 ml @ 3.75 mls/hr Q24H IV 07/15/24 13:30 07/19/24 09:07 7.5 MLS/HR Micafungin Sodium 100 mg/Sodium Chloride 100 ml @ 100 mls/hr DAILY IV 07/15/24 17:00 07/19/24 09:01 100 MLS/HR Diagnostic Test (Pha) 1 strip ACHS 07/18/24 07:00 07/19/24 06:51 1 STRIP Insulin Human Regular HS SC 07/18/24 22:00 07/18/24 21:36 4 UNITS Insulin Human Regular AC SC 07/18/24 07:00 07/19/24 06:50 12 UNITS Dextrose 50 ml UD PRN IV 07/18/24 06:30 Acetaminophen/ Hydrocodone Bitart 1 tab Q6HPRN PRN PO 07/18/24 11:30 Laboratory Results Laboratory Tests 07/19/24 03:40 Chemistry Test 07/19/24 03:40 Albumin 2.9 g/dL (3.2-4.8) L Calcium Level 8.5 mg/dL (8.7-10.4) L Magnesium Level 1.8 mg/dL (1.6-2.6) Total Protein 6.6 g/dL (5.7-8.2) Coagulation Test 07/19/24 03:40 Prothrombin Time 11.6 sec (9.3-11.8) Prothrombin Time INR 1.10 (0.9-1.15) Activated Partial Thromboplast Time 34.3 SEC (24.5-34.5) LFT Test 07/19/24 03:40 Alanine Aminotransferase (ALT) < 9 U/L (7-40) Alkaline Phosphatase 90 U/L (46-116) Aspartate Amino Transferase (AST) 9 U/L (13-40) L Total Bilirubin 0.4 mg/dL (0.2-1.0) Urinalysis Test 07/02/24 23:08 Urine Color Light-yellow (Yellow) Urine Clarity Clear (Clear) Urine pH 5.0 (5.0-9.0) Urine Specific [place] 1.025 (1.001-1.035) Urine Protein Negative (Negative) Urine Ketones 4+ (Negative) H Urine Blood Negative /uL (Negative) Urine Nitrite Negative (Negative) Urine Bilirubin Negative (Negative) Urine Urobilinogen Normal mg/dL (Negative) Urine Leukocyte Esterase Negative /uL (Negative) Urine RBC <1 /hpf (0 - 3) Urine WBC 1 /hpf (0 - 3) Urine Squamous Epithelial Cells None seen /hpf (<5) Urine Bacteria None seen /hpf (None Seen) Urine Glucose 4+ mg/dL (Normal) H Microbiology Microbiology Date/Time Source Procedure Growth Status 07/13/24 16:02 Urine - [place] Urine Culture - Final Yeast, not Araceli albicans Complete 07/08/24 18:27 Other - Final Resulted 07/08/24 18:27 Other - Final Resulted 07/08/24 18:27 Other Pending Resulted 07/08/24 18:27 Other Pending Resulted 07/08/24 18:27 Other - Final See Separate Report... Resulted 07/08/24 18:27 Bronchial Washings Gram Stain - Final Complete 07/08/24 18:27 Respiratory Culture - Final Staphylococcus aureus Stenotrophomonas maltophilia Complete 07/03/24 19:35 Blood Blood Culture - Final Staph hominis subsp homins Complete Assessment/Plan Assessment/Plan DKA, resolved DM, uncontrolled Acute hypoxic respiratory failure s/p intubation on mechanical ventilator ZOYA Sepsis w septic shock Hypernatremia Fever B feet ulcers Thrombocytopenia due to sepsis, improved Sacral decub ulcer PLAN: 07/03/2024: IV fluids, change to 1/2 NS Nephrology consult Vasopressors as needed Blood, urine and sputum cultures IV antibiotics: Empiric, change to Cefepime and Vanco Sedation as needed Start Lantus Full code Discussed with family at the bedside Advance directives discussed with family x 20 minutes 07/04/2024: Diarrhea: Check the stools for C diff ZOYA: Continue IV fluids Hypernatremia: Start free water Sepsis with septic shock: Continue cefepime and vancomycin Hypotension: Vasopressors Uterine cultures and respiratory cultures are Discussed with the family at the bedside Lantus 10 units twice a day Accu-Cheks q.4 hours 07/05/24: Continue IV fluids 1/2 NS Vancomycin + Cefepime Free water Minimize sedation Taper down Levophed Podiatry consult MRSA screen: Negative Lantus Discussed with at the bedside 07/06/24: Hypernatremia: Repeat labs Hypokalemia: Replace Vancomycin and Cefepime Continue free water 09/06/2024: Hypernatremia: Continue free water, start tube feeding with Glucerna , discontinue the IV fluids IV antibiotics: Cefepime and vancomycin Lantus Sliding scale Nephrology consult Pulmonary consult Discussed with the at the bedside Full code 07/08/2024: Continue free water to correct hypernatremia C-PAP trial in progress Wound infection with Staph aureus Sputum culture showed Staph aureus and Klebsiella pneumoniae and Citrobacter Blood culture with Staph home in his Cefepime and vancomycin Endoscopy for today Extubation possibly after bronchoscopy today 07/09/24: Change IV antibiotics to Levaquin and Diflucan Free water Hold sedation C-PAP, extubate? Replace K+ Discussed with at the bedside 07/10/24: Start IV D5W Swallow eval PT eval IS Out of bed Suction IV Levaquin IV Diflucan Levophed, taper as tolerated Discussed with and sister at the bedside 07/12/2024: Due to fluid overload, chest x-ray shows congestion: DC the IV fluids, Lasix IV 40 mg x 1, Hypokalemia: Replace p.o. DC the [place] Out of bed as tolerated Physical therapy IV antibiotics: Levofloxacin and Diflucan Off the Levophed drip 07/13/2024: Give more Lasix 40 mg IV Continue IV Levaquin and Diflucan Replace potassium Downgrade to the EWA Continue physical therapy Continue med nebs with Mucomyst Discussed with the at the bedside : Sacral ulcer: consult Sx Pulmonary congestion: Lasix 40 mg IV Pneumonia: Bactrim & Micafungin IV Sepsis w septic shock: Levophed Lovenox Protonix Physical therapy 07/17/2024: Give more Lasix 40 mg IV once Continue IV antibiotics with Bactrim and micafungin General surgery is planning on surgery on decubitus ulcer of the sacrum on Friday Coagulopathy to be corrected with vitamin K 07/18/2024: Coagulopathy is improved The patient is scheduled for surgery for his decubitus ulcer of the sacrum tomorrow Continue IV antibiotics Bactrim and micafungin Lasix 20 mg IV 1 dose Tapered the Levophed off as tolerated Discussed with the at the bedside 07/19/2024: Levophed as needed for blood pressure support Continue IV Bactrim and micafungin Surgery today per Dr. Uir Huntley as needed Plan discussed with: Patient My Orders Orders - MEHRAN GUERRERO MD Procedure Category Date Status Time Hydrocodone-Acet PHA 07/18/24 In Process 5/325mg Tab ([place] 11:30 Date of Service: Jul 19, 2024 Billing Provider: MEHRAN GUERRERO MD Common Visit Codes: [id number] INP/OBS CARE(HIGH) MEHRAN GUERRERO MD Jul 19, 2024 10:20
[2024-07-19] MEDS: BUPIVACAINE 0.5% INJ 50ML VIAL IJ ONE (14:46)
[2024-07-19] MEDS: ceFAZolin 1GM VL ONE (14:46)
[2024-07-19] MEDS: BUPIVACAINE HCL 50 ML ONE (14:54)
[2024-07-19] MEDS: SODIUM CHLORIDE LOCK 20 ML ONE (15:02)
[2024-07-19] MEDS ORDERED: fentaNYL CITRATE 100 MCG/2 ML VL ONE (15:08)
[2024-07-19] MEDS ORDERED: MIDAZOLAM HCL 2MG/2ML 2ml VIAL (1mg/ml) ONE (15:09)
[2024-07-19] MEDS ORDERED: ONDANSETRON HCL 4 MG/2 ML VIAL ONE (15:09)
[2024-07-19] MEDS ORDERED: KETAMINE 50mg/ML 10ml Vial 10 ML ONE (15:09)
[2024-07-19] MEDS ORDERED: GLYCOPYRROLATE 0.2 MG/ML 1ML VIAL ONE (15:09)
--- NOTE | 2024-07-19 15:25 | DVHOP2 ---
Operative Report [id number] LOW BACK NON HEALING WOUND WIDE EXCISION NECROTIC TISSUE LOW BACK WOUND EBL 25 CC NO DRAINS NO COMPLICATIONS MARYAM CONTRERAS MD Jul 19, 2024 15:25
--- NOTE | 2024-07-19 15:33 | DVHOP ---
DATE OF SURGERY: 07/19/2024 PREOPERATIVE DIAGNOSIS: Nonhealing low back wound with a necrotic tissue. POSTOPERATIVE DIAGNOSIS: Nonhealing low back wound with a necrotic tissue. PROCEDURE: Tissue debridement using cautery up to subcutaneous level and it was a very large size low back wound. SURGEON: Ronan Grewal MD BULL RIVETER: None. ANESTHESIA: Local with IV sedation. DRAINS: No drains were used. DESCRIPTION OF PROCEDURE: The patient was prepped and draped in the usual sterile fashion in the lateral position with the left side up and the right side down and the cautery was used to remove the necrotic tissue, going up to the subcutaneous level and then once completely removed, was submitted for pathology. The area was secured for hemostasis. Irrigation performed and dressing applied with Xeroform and dry gauze and the patient tolerated the procedure well and was taken back to recovery room in stable condition. MD KENTON Galindo/LEANDRO TID: [id number] RECEIPT: [id number] cc: Quynh Saucedo MD
[2024-07-20] VITALS (99 sets, daily range): BP systolic 71–163; BP diastolic 36–81; PULSE 69–94; RESP 7–30; TEMP 97.8–98.4; O2SAT 87–100
[2024-07-20 03:46] LABS: Basophils # (auto) 0.1 10 ^3/uL (0-0.2); Hemoglobin 10.9 g/dL (13.5-17.5); Lymphocytes # (auto) 0.8 10 ^3/uL (0.4-5.4); Mean Corpuscular Hemoglobin 29.1 pg (28.0-32.0); Monocytes # (auto) 0.4 10 ^3/uL (0-1.3)
[2024-07-20 03:48] LABS: Basophils % (auto) 0.9 % (0.0-2.0); Eosinophils # (auto) 0.1 10 ^3/uL (0-0.8); Eosinophils % (auto) 2.6 % (0.0-7.0); Hematocrit 32.8 % (41.0-53.0); Lymphocytes % (auto) 13.5 % (10.0-50.0); Mean Corpuscular Hgb Conc. 33.2 g/dL (32.0-36.0); Mean Corpuscular Volume 87.7 fL (80.0-100.0); Monocytes % (auto) 6.5 % (0.0-12.0); Neutrophils # (auto) 4.4 10 ^3/uL (1.6-8.6); Neutrophils % (auto) 76.5 % (37.0-80.0); Nucleated Red Blood Cells % 0.1 %; Platelet Count (auto) 436 10^3/uL (140-450); Red Blood Cells 3.74 10^6/uL (4.5-5.90); Red Cell Distribution Width 13.3 % (11.8-14.3); White Blood Cell 5.8 10^3/uL (4.4-10.8)
[2024-07-20 03:55] LABS: Alkaline Phosphatase 88 U/L (46-116); Anion Gap 4 (5-15); BUN/Creatinine Ratio 9.8 (10.0-20.0); Blood Urea Nitrogen 6 mg/dL (9-23); Calcium 8.7 mg/dL (8.7-10.4); Carbon Dioxide 27 mmol/L (20-31); Chloride 99 mmol/L (98-107); Glucose 265 mg/dL (74-106); Magnesium 1.7 mg/dL (1.6-2.6); Potassium 4.9 mmol/L (3.5-5.1); Sodium 130 mmol/L (136-145)
[2024-07-20 03:56] LABS: Albumin 2.8 g/dL (3.2-4.8); Aspartate Aminotransferase 10 U/L (13-40)
[2024-07-20 03:57] LABS: Bilirubin, Total 0.4 mg/dL (0.2-1.0); Total Protein 6.6 g/dL (5.7-8.2)
[2024-07-20 04:04] LABS: Alanine Aminotransferase < 9 U/L (7-40)
[2024-07-20] MEDS: HYDROcodone-ACET 5/325MG TAB PO PRN (09:04)
--- NOTE | 2024-07-20 15:13 | DVHPN2 ---
Subjective Alert and oriented He is on Levophed at 6 mics He had his surgery on his sacral decubital ulcer yesterday Complains of generalized pain and back pain Changes from previous H/P or p: Changes Eyes: No Pain, No Vision change, No Conjunctivae inflammation, No Eyelid inflammation, No Other, No Redness ENT: No Ear pain, No Ear discharge, No Nose pain, No Nose discharge, No Nose congestion, No Mouth pain, No Mouth swelling, No Throat pain, No Throat swelling, No Other Cardiovascular: No Chest Pain, No Palpitations, No Orthopnea, No Paroxysmal Noc. Dyspnea, No Edema, No Lt Headedness, No Other Respiratory: No Cough, No Dry, No Shortness of breath, No SOB with excertion, No Wheezing, No Hemoptysis, No Pleuritic Pain, No Sputum, No Other Gastrointestinal: No Nausea, No Vomiting, No Abdominal Pain, No Diarrhea, No Constipation, No Melena, No Hematochezia, No Other Genitourinary: No Dysuria, No Frequency, No Incontinence, No Hematuria, No Retention, No Other Musculoskeletal: No other, No neck pain, No shoulder pain, No arm pain, No back pain, No hand pain, No leg pain, No foot pain Skin: No Rash, No Lesions, No Jaundice, No Bruising, No Other Objective Vitals Vital Signs Date Time Temp Pulse Resp B/P (MAP) Pulse Ox O2 Delivery O2 Flow Rate FiO2 07/20/24 14:30 82 20 101/52 (68) 90 07/20/24 14:00 Nasal Cannula* 2 28 07/20/24 08:00 98.0 98.0 Intake/Output Intake and Output 07/20/24 07:00 Intake Total 1929.166 ml Output Total 2875 ml Balance -945.834 ml Intake Oral 400 ml IV Total 1529.166 ml Output Urine Total 2875 ml General Appearance: Alert (Somnolent, off sedation), Oriented X3, Cooperative, No acute distress Lungs: Clear to auscultation, Normal air movement Chest/Breasts: Other (Bilateral rhonchi and crackles diffusely) Cardiovascular: Regular rate, Normal S1 Abdomen: Normal bowel sounds, Soft, No tenderness Extremities: No edema Medications Current Medications Medications Dose Ordered Sig/Sandra Route Start Time Stop Time Status Last Admin Dose Admin Ondansetron HCl 4 mg Q4HP PRN IV 07/02/24 23:15 07/13/24 20:21 4 MG Nitroglycerin 0.4 mg Q5MINP PRN SL 07/02/24 23:15 Acetaminophen 650 mg Q6HP PRN GT 07/03/24 12:30 Hold 07/04/24 03:53 650 MG Enoxaparin Sodium 40 mg DAILY SC 07/04/24 10:00 07/20/24 08:00 40 MG Insulin Glargine 10 units BID@0700,2200 SC 07/03/24 22:00 07/20/24 06:20 10 UNITS Lorazepam 0.5 mg Q4HR PRN IV 07/09/24 14:30 07/20/24 09:05 0.5 MG Levalbuterol HCl 0.625 mg Q4HWA NEB 07/10/24 06:00 07/20/24 13:49 0.625 MG Morphine Sulfate 2 mg Q4HPRN PRN IV 07/10/24 11:00 07/20/24 13:46 2 MG Pantoprazole Sodium 40 mg DAILY IV 07/12/24 13:45 07/20/24 09:04 40 MG Propofol 100 ml @ 2.22 mls/hr Q24H IV 07/13/24 08:00 Cancel Trimethoprim/ Sulfamethoxazole 10 ml @ 0 mls/hr PER PHARMACY IV 07/13/24 10:45 Trimethoprim/ Sulfamethoxazole 22.5 ml/Dextrose 522.5 ml @ 348.333 mls/hr Q8HR IV 07/13/24 14:00 07/20/24 13:49 348.333 MLS/HR Budesonide 0.5 mg BID NEB 07/13/24 22:00 07/20/24 09:54 0.5 MG Sodium Chloride 10 ml QSHIFT@10,22 IV 07/14/24 22:00 07/20/24 09:07 10 ML Norepinephrine Bitartrate 250 ml @ 3.75 mls/hr Q24H IV 07/15/24 13:30 07/19/24 09:07 7.5 MLS/HR Micafungin Sodium 100 mg/Sodium Chloride 100 ml @ 100 mls/hr DAILY IV 07/15/24 17:00 07/20/24 09:03 100 MLS/HR Diagnostic Test (Pha) 1 strip ACHS 07/18/24 07:00 07/20/24 11:36 1 STRIP Insulin Human Regular HS SC 07/18/24 22:00 07/19/24 21:55 3 UNITS Insulin Human Regular AC SC 07/18/24 07:00 07/20/24 11:39 6 UNITS Dextrose 50 ml UD PRN IV 07/18/24 06:30 Acetaminophen/ Hydrocodone Bitart 1 tab Q6HPRN PRN PO 07/18/24 11:30 07/20/24 09:04 1 TAB Midodrine 2.5 mg TID@0600,1200,1800 PO 07/20/24 18:00 UNV Laboratory Results Laboratory Tests 07/20/24 03:17 Chemistry Test 07/20/24 03:17 Albumin 2.8 g/dL (3.2-4.8) L Calcium Level 8.7 mg/dL (8.7-10.4) Magnesium Level 1.7 mg/dL (1.6-2.6) Total Protein 6.6 g/dL (5.7-8.2) LFT Test 07/20/24 03:17 Alanine Aminotransferase (ALT) < 9 U/L (7-40) Alkaline Phosphatase 88 U/L (46-116) Aspartate Amino Transferase (AST) 10 U/L (13-40) L Total Bilirubin 0.4 mg/dL (0.2-1.0) Urinalysis Test 07/02/24 23:08 Urine Color Light-yellow (Yellow) Urine Clarity Clear (Clear) Urine pH 5.0 (5.0-9.0) Urine Specific [place] 1.025 (1.001-1.035) Urine Protein Negative (Negative) Urine Ketones 4+ (Negative) H Urine Blood Negative /uL (Negative) Urine Nitrite Negative (Negative) Urine Bilirubin Negative (Negative) Urine Urobilinogen Normal mg/dL (Negative) Urine Leukocyte Esterase Negative /uL (Negative) Urine RBC <1 /hpf (0 - 3) Urine WBC 1 /hpf (0 - 3) Urine Squamous Epithelial Cells None seen /hpf (<5) Urine Bacteria None seen /hpf (None Seen) Urine Glucose 4+ mg/dL (Normal) H Microbiology Microbiology Date/Time Source Procedure Growth Status 07/19/24 14:47 Buttock Gram Stain - Final Resulted 07/19/24 14:47 Buttock Anaerobic Culture - Preliminary Resulted 07/19/24 14:47 Buttock Aerobic Culture - Preliminary Resulted 07/13/24 16:02 Urine - [place] Urine Culture - Final Yeast, not Araceli albicans Complete 07/08/24 18:27 Bronchial Washings Gram Stain - Final Complete 07/08/24 18:27 Respiratory Culture - Final Staphylococcus aureus Stenotrophomonas maltophilia Complete 07/03/24 19:35 Blood Blood Culture - Final Staph hominis subsp homins Complete Assessment/Plan Assessment/Plan DKA, resolved DM, uncontrolled Acute hypoxic respiratory failure s/p intubation on mechanical ventilator ZOYA Sepsis w septic shock Hypernatremia Fever B feet ulcers Thrombocytopenia due to sepsis, improved Sacral decub ulcer PLAN: 07/03/2024: IV fluids, change to 1/2 NS Nephrology consult Vasopressors as needed Blood, urine and sputum cultures IV antibiotics: Empiric, change to Cefepime and Vanco Sedation as needed Start Lantus Full code Discussed with family at the bedside Advance directives discussed with family x 20 minutes 07/04/2024: Diarrhea: Check the stools for C diff ZOYA: Continue IV fluids Hypernatremia: Start free water Sepsis with septic shock: Continue cefepime and vancomycin Hypotension: Vasopressors Uterine cultures and respiratory cultures are Discussed with the family at the bedside Lantus 10 units twice a day Accu-Cheks q.4 hours 07/05/24: Continue IV fluids 1/2 NS Vancomycin + Cefepime Free water Minimize sedation Taper down Levophed Podiatry consult MRSA screen: Negative Lantus Discussed with at the bedside 07/06/24: Hypernatremia: Repeat labs Hypokalemia: Replace Vancomycin and Cefepime Continue free water 09/06/2024: Hypernatremia: Continue free water, start tube feeding with Glucerna , discontinue the IV fluids IV antibiotics: Cefepime and vancomycin Lantus Sliding scale Nephrology consult Pulmonary consult Discussed with the at the bedside Full code 07/08/2024: Continue free water to correct hypernatremia C-PAP trial in progress Wound infection with Staph aureus Sputum culture showed Staph aureus and Klebsiella pneumoniae and Citrobacter Blood culture with Staph home in his Cefepime and vancomycin Endoscopy for today Extubation possibly after bronchoscopy today 07/09/24: Change IV antibiotics to Levaquin and Diflucan Free water Hold sedation C-PAP, extubate? Replace K+ Discussed with at the bedside 07/10/24: Start IV D5W Swallow eval PT eval IS Out of bed Suction IV Levaquin IV Diflucan Levophed, taper as tolerated Discussed with and sister at the bedside 07/12/2024: Due to fluid overload, chest x-ray shows congestion: DC the IV fluids, Lasix IV 40 mg x 1, Hypokalemia: Replace p.o. DC the [place] Out of bed as tolerated Physical therapy IV antibiotics: Levofloxacin and Diflucan Off the Levophed drip 07/13/2024: Give more Lasix 40 mg IV Continue IV Levaquin and Diflucan Replace potassium Downgrade to the EWA Continue physical therapy Continue med nebs with Mucomyst Discussed with the at the bedside : Sacral ulcer: consult Sx Pulmonary congestion: Lasix 40 mg IV Pneumonia: Bactrim & Micafungin IV Sepsis w septic shock: Levophed Lovenox Protonix Physical therapy 07/17/2024: Give more Lasix 40 mg IV once Continue IV antibiotics with Bactrim and micafungin General surgery is planning on surgery on decubitus ulcer of the sacrum on Friday Coagulopathy to be corrected with vitamin K 07/18/2024: Coagulopathy is improved The patient is scheduled for surgery for his decubitus ulcer of the sacrum tomorrow Continue IV antibiotics Bactrim and micafungin Lasix 20 mg IV 1 dose Tapered the Levophed off as tolerated Discussed with the at the bedside 07/19/2024: Levophed as needed for blood pressure support Continue IV Bactrim and micafungin Surgery today per Dr. Grewal Lasix as needed 07/20/2024: Still on Levophed, tapered down as tolerated Add midodrine 2.5 mg 3 times a day Continue IV Bactrim and micafungin Continue physical therapy and out of bed as tolerated Discussed with the at the bedside Plan discussed with: Patient My Orders Orders - MEHRAN GUERRERO MD Procedure Category Date Status Time Midodrine Tablet PHA 07/20/24 Logged (Proamatine Tablet) 18:00 Date of Service: Jul 20, 2024 Billing Provider: MEHRAN GUERRERO MD Common Visit Codes: [id number] INP/OBS CARE(HIGH) MEHRAN GUERRERO MD Jul 20, 2024 15:13
[2024-07-20] MEDS: MIDODRINE HCL 10 MG TAB PO SCH (17:55)
[2024-07-21] VITALS (99 sets, daily range): BP systolic 73–146; BP diastolic 34–85; PULSE 65–88; RESP 15–28; TEMP 97.8–98.6; O2SAT 80–100
[2024-07-21 03:45] LABS: Chloride 99 mmol/L (98-107); Potassium 4.7 mmol/L (3.5-5.1); Sodium 130 mmol/L (136-145)
[2024-07-21 03:46] LABS: Anion Gap 3 (5-15); Calcium 8.8 mg/dL (8.7-10.4); Carbon Dioxide 28 mmol/L (20-31)
[2024-07-21 03:51] LABS: BUN/Creatinine Ratio 9.5 (10.0-20.0); Blood Urea Nitrogen 6 mg/dL (9-23); Glucose 248 mg/dL (74-106)
[2024-07-21 03:52] LABS: Magnesium 1.7 mg/dL (1.6-2.6)
[2024-07-21] MEDS ORDERED: BUDESONIDE (INHALATION) 0.5 MG/2 ML NEB NEB PRN (15:30)
--- NOTE | 2024-07-21 16:44 | DVHPN2 ---
Subjective Alert and oriented He is on Levophed at 4 mics Constipated x 3 days 3 liters NC O2 Changes from previous H/P or p: Changes Eyes: No Pain, No Vision change, No Conjunctivae inflammation, No Eyelid inflammation, No Other, No Redness ENT: No Ear pain, No Ear discharge, No Nose pain, No Nose discharge, No Nose congestion, No Mouth pain, No Mouth swelling, No Throat pain, No Throat swelling, No Other Cardiovascular: No Chest Pain, No Palpitations, No Orthopnea, No Paroxysmal Noc. Dyspnea, No Edema, No Lt Headedness, No Other Respiratory: No Cough, No Dry, No Shortness of breath, No SOB with excertion, No Wheezing, No Hemoptysis, No Pleuritic Pain, No Sputum, No Other Gastrointestinal: No Nausea, No Vomiting, No Abdominal Pain, No Diarrhea, No Constipation, No Melena, No Hematochezia, No Other Genitourinary: No Dysuria, No Frequency, No Incontinence, No Hematuria, No Retention, No Other Musculoskeletal: No other, No neck pain, No shoulder pain, No arm pain, No back pain, No hand pain, No leg pain, No foot pain Skin: No Rash, No Lesions, No Jaundice, No Bruising, No Other Objective Vitals Vital Signs Date Time Temp Pulse Resp B/P (MAP) Pulse Ox O2 Delivery O2 Flow Rate FiO2 07/21/24 16:00 19 98 Nasal Cannula* 2 28 07/21/24 16:00 98.4 69 102/63 (76) 98.4 Intake/Output Intake and Output 07/21/24 07:00 Intake Total 1567.500 ml Output Total 3350 ml Balance -1782.500 ml Intake Oral 850 ml IV Total 717.500 ml Output Urine Total 3350 ml General Appearance: Alert (Somnolent, off sedation), Oriented X3, Cooperative, No acute distress Lungs: Clear to auscultation, Normal air movement Chest/Breasts: Other (Bilateral rhonchi and crackles diffusely) Cardiovascular: Regular rate, Normal S1 Abdomen: Normal bowel sounds, Soft, No tenderness Extremities: No edema Medications Current Medications Medications Dose Ordered Sig/Sandra Route Start Time Stop Time Status Last Admin Dose Admin Ondansetron HCl 4 mg Q4HP PRN IV 07/02/24 23:15 07/13/24 20:21 4 MG Nitroglycerin 0.4 mg Q5MINP PRN SL 07/02/24 23:15 Acetaminophen 650 mg Q6HP PRN GT 07/03/24 12:30 Hold 07/04/24 03:53 650 MG Enoxaparin Sodium 40 mg DAILY SC 07/04/24 10:00 07/21/24 09:17 40 MG Insulin Glargine 10 units BID@0700,2200 SC 07/03/24 22:00 07/21/24 05:23 10 UNITS Lorazepam 0.5 mg Q4HR PRN IV 07/09/24 14:30 07/20/24 09:05 0.5 MG Morphine Sulfate 2 mg Q4HPRN PRN IV 07/10/24 11:00 07/21/24 15:54 2 MG Pantoprazole Sodium 40 mg DAILY IV 07/12/24 13:45 07/21/24 09:17 40 MG Propofol 100 ml @ 2.22 mls/hr Q24H IV 07/13/24 08:00 Cancel Trimethoprim/ Sulfamethoxazole 10 ml @ 0 mls/hr PER PHARMACY IV 07/13/24 10:45 Trimethoprim/ Sulfamethoxazole 22.5 ml/Dextrose 522.5 ml @ 348.333 mls/hr Q8HR IV 07/13/24 14:00 07/21/24 13:20 348.333 MLS/HR Sodium Chloride 10 ml QSHIFT@10,22 IV 07/14/24 22:00 07/21/24 09:17 10 ML Norepinephrine Bitartrate 250 ml @ 3.75 mls/hr Q24H IV 07/15/24 13:30 07/20/24 15:15 3.75 MLS/HR Micafungin Sodium 100 mg/Sodium Chloride 100 ml @ 100 mls/hr DAILY IV 07/15/24 17:00 07/21/24 09:18 100 MLS/HR Diagnostic Test (Pha) 1 strip ACHS 07/18/24 07:00 07/21/24 11:17 1 STRIP Insulin Human Regular HS SC 07/18/24 22:00 07/19/24 21:55 3 UNITS Insulin Human Regular AC SC 07/18/24 07:00 07/21/24 11:31 9 UNITS Dextrose 50 ml UD PRN IV 07/18/24 06:30 Acetaminophen/ Hydrocodone Bitart 1 tab Q6HPRN PRN PO 07/18/24 11:30 07/21/24 02:23 1 TAB Levalbuterol HCl 0.625 mg Q4HR PRN NEB 07/21/24 15:15 Budesonide 0.5 mg BID PRN NEB 07/21/24 15:30 Hold Midodrine 5 mg TID@0600,1200,1800 PO 07/21/24 18:00 UNV Enteral Nutritional Formula 240 ml TIDWM PO 07/21/24 18:00 UNV Laboratory Results Laboratory Tests 07/20/24 03:17 07/21/24 03:17 Chemistry Test 07/21/24 03:17 Calcium Level 8.8 mg/dL (8.7-10.4) Magnesium Level 1.7 mg/dL (1.6-2.6) Urinalysis Test 07/02/24 23:08 Urine Color Light-yellow (Yellow) Urine Clarity Clear (Clear) Urine pH 5.0 (5.0-9.0) Urine Specific [place] 1.025 (1.001-1.035) Urine Protein Negative (Negative) Urine Ketones 4+ (Negative) H Urine Blood Negative /uL (Negative) Urine Nitrite Negative (Negative) Urine Bilirubin Negative (Negative) Urine Urobilinogen Normal mg/dL (Negative) Urine Leukocyte Esterase Negative /uL (Negative) Urine RBC <1 /hpf (0 - 3) Urine WBC 1 /hpf (0 - 3) Urine Squamous Epithelial Cells None seen /hpf (<5) Urine Bacteria None seen /hpf (None Seen) Urine Glucose 4+ mg/dL (Normal) H Microbiology Microbiology Date/Time Source Procedure Growth Status 07/19/24 14:47 Buttock Gram Stain - Final Resulted 07/19/24 14:47 Buttock Anaerobic Culture - Preliminary Resulted 07/19/24 14:47 Buttock Aerobic Culture - Preliminary Resulted 07/13/24 16:02 Urine - [place] Urine Culture - Final Yeast, not Araceli albicans Complete 07/08/24 18:27 Bronchial Washings Gram Stain - Final Complete 07/08/24 18:27 Respiratory Culture - Final Staphylococcus aureus Stenotrophomonas maltophilia Complete 07/03/24 19:35 Blood Blood Culture - Final Staph hominis subsp homins Complete Assessment/Plan Assessment/Plan DKA, resolved DM, uncontrolled Acute hypoxic respiratory failure s/p intubation on mechanical ventilator ZOYA Sepsis w septic shock Hypernatremia Fever B feet ulcers Thrombocytopenia due to sepsis, improved Sacral decub ulcer PLAN: 07/03/2024: IV fluids, change to 1/2 NS Nephrology consult Vasopressors as needed Blood, urine and sputum cultures IV antibiotics: Empiric, change to Cefepime and Vanco Sedation as needed Start Lantus Full code Discussed with family at the bedside Advance directives discussed with family x 20 minutes 07/04/2024: Diarrhea: Check the stools for C diff ZOYA: Continue IV fluids Hypernatremia: Start free water Sepsis with septic shock: Continue cefepime and vancomycin Hypotension: Vasopressors Uterine cultures and respiratory cultures are Discussed with the family at the bedside Lantus 10 units twice a day Accu-Cheks q.4 hours 07/05/24: Continue IV fluids 1/2 NS Vancomycin + Cefepime Free water Minimize sedation Taper down Levophed Podiatry consult MRSA screen: Negative Lantus Discussed with at the bedside 07/06/24: Hypernatremia: Repeat labs Hypokalemia: Replace Vancomycin and Cefepime Continue free water 09/06/2024: Hypernatremia: Continue free water, start tube feeding with Glucerna , discontinue the IV fluids IV antibiotics: Cefepime and vancomycin Lantus Sliding scale Nephrology consult Pulmonary consult Discussed with the at the bedside Full code 07/08/2024: Continue free water to correct hypernatremia C-PAP trial in progress Wound infection with Staph aureus Sputum culture showed Staph aureus and Klebsiella pneumoniae and Citrobacter Blood culture with Staph home in his Cefepime and vancomycin Endoscopy for today Extubation possibly after bronchoscopy today 07/09/24: Change IV antibiotics to Levaquin and Diflucan Free water Hold sedation C-PAP, extubate? Replace K+ Discussed with at the bedside 07/10/24: Start IV D5W Swallow eval PT eval IS Out of bed Suction IV Levaquin IV Diflucan Levophed, taper as tolerated Discussed with and sister at the bedside 07/12/2024: Due to fluid overload, chest x-ray shows congestion: DC the IV fluids, Lasix IV 40 mg x 1, Hypokalemia: Replace p.o. DC the [place] Out of bed as tolerated Physical therapy IV antibiotics: Levofloxacin and Diflucan Off the Levophed drip 07/13/2024: Give more Lasix 40 mg IV Continue IV Levaquin and Diflucan Replace potassium Downgrade to the EWA Continue physical therapy Continue med nebs with Mucomyst Discussed with the at the bedside : Sacral ulcer: consult Sx Pulmonary congestion: Lasix 40 mg IV Pneumonia: Bactrim & Micafungin IV Sepsis w septic shock: Levophed Lovenox Protonix Physical therapy 07/17/2024: Give more Lasix 40 mg IV once Continue IV antibiotics with Bactrim and micafungin General surgery is planning on surgery on decubitus ulcer of the sacrum on Friday Coagulopathy to be corrected with vitamin K 07/18/2024: Coagulopathy is improved The patient is scheduled for surgery for his decubitus ulcer of the sacrum tomorrow Continue IV antibiotics Bactrim and micafungin Lasix 20 mg IV 1 dose Tapered the Levophed off as tolerated Discussed with the at the bedside 07/19/2024: Levophed as needed for blood pressure support Continue IV Bactrim and micafungin Surgery today per Dr. Grewal Lasix as needed 07/20/2024: Still on Levophed, tapered down as tolerated Add midodrine 2.5 mg 3 times a day Continue IV Bactrim and micafungin Continue physical therapy and out of bed as tolerated Discussed with the at the bedside 07/21/24: Low BP: Increase midodrine to 5 mg tid Add Glucerna Constipation: Lactulose Colace Taper down Levophed IV antibiotics: Bactrim & Micafungin Lantus 10 units bid Advance diet Discussed with at the bedside Plan discussed with: Patient My Orders Orders - MEHRAN GUERRERO MD Procedure Category Date Status Time Midodrine Tablet PHA 07/21/24 Logged (Proamatine Tablet) 18:00 Nutritional PHA 07/21/24 Logged Supplements (Glucerna 18:00 Alprazolam Tablet PHA 07/21/24 Verified (Xanax Tablet) 16:45 Date of Service: Jul 21, 2024 Billing Provider: MEHRAN GUERRERO MD Common Visit Codes: [id number] INP/OBS CARE(HIGH) MEHRAN GUERRERO MD Jul 21, 2024 16:44
[2024-07-21] MEDS ORDERED: ALPRAZolam 0.25 MG TAB PO PRN (16:45)
[2024-07-21] MEDS: DOCUSATE SOD 100 MG CAP PO ONE (17:20)
[2024-07-21] MEDS: LACTULOSE 20Gm/30ML SOLN PO ONE (17:20)
[2024-07-21] MEDS: MIDODRINE HCL 10 MG TAB PO SCH (17:20)
[2024-07-21] MEDS: MAGNESIUM OXIDE 400 MG TAB PO ONE (17:20)
[2024-07-21] MEDS: Glucerna Carbsteady SHAKE Vanilla 8oz PO SCH (18:24)
[2024-07-21] MEDS: ASCORBIC ACID 500 MG TAB PO SCH (21:17)
[2024-07-21] MEDS: DOCUSATE SOD 100 MG CAP PO SCH (21:42)
[2024-07-22] VITALS (104 sets, daily range): BP systolic 73–143; BP diastolic 31–88; PULSE 63–93; RESP 13–29; TEMP 97.9–98.8; O2SAT 89–100
[2024-07-22 03:55] LABS: Basophils # (auto) 0.1 10 ^3/uL (0-0.2); Basophils % (auto) 1.2 % (0.0-2.0); Eosinophils # (auto) 0.2 10 ^3/uL (0-0.8); Eosinophils % (auto) 3.3 % (0.0-7.0); Hematocrit 33.3 % (41.0-53.0); Hemoglobin 11.1 g/dL (13.5-17.5); Lymphocytes # (auto) 1.2 10 ^3/uL (0.4-5.4); Lymphocytes % (auto) 20.3 % (10.0-50.0); Mean Corpuscular Hemoglobin 29.3 pg (28.0-32.0); Mean Corpuscular Hgb Conc. 33.5 g/dL (32.0-36.0); Mean Corpuscular Volume 87.4 fL (80.0-100.0); Monocytes # (auto) 0.3 10 ^3/uL (0-1.3); Monocytes % (auto) 5.3 % (0.0-12.0); Neutrophils % (auto) 69.9 % (37.0-80.0); Platelet Count (auto) 530 10^3/uL (140-450); Red Blood Cells 3.81 10^6/uL (4.5-5.90); Red Cell Distribution Width 13.3 % (11.8-14.3); White Blood Cell 5.7 10^3/uL (4.4-10.8)
[2024-07-22] MEDS: LEVALBUTEROL HCL 1.25 MG/3 ML NEB NEB PRN (04:05)
[2024-07-22 04:08] LABS: Albumin 2.7 g/dL (3.2-4.8); Alkaline Phosphatase 92 U/L (46-116); Anion Gap 5 (5-15); Aspartate Aminotransferase 9 U/L (13-40); BUN/Creatinine Ratio 10.8 (10.0-20.0); Blood Urea Nitrogen 7 mg/dL (9-23); Carbon Dioxide 27 mmol/L (20-31); Chloride 99 mmol/L (98-107); Glucose 188 mg/dL (74-106); Potassium 4.7 mmol/L (3.5-5.1); Sodium 131 mmol/L (136-145)
[2024-07-22 04:09] LABS: Bilirubin, Total < 0.2 mg/dL (0.2-1.0); Total Protein 6.5 g/dL (5.7-8.2)
[2024-07-22 04:13] LABS: Alanine Aminotransferase < 9 U/L (7-40)
[2024-07-22] MEDS: MAGNESIUM OXIDE 400 MG TAB PO SCH (10:00)
[2024-07-22] MEDS: ZINC SULFATE 220mg CAP or TAB PO SCH (11:38)
[2024-07-22] MEDS: MIDODRINE HCL 10 MG TAB PO SCH (13:57)
--- NOTE | 2024-07-22 14:14 | DVHPN2 ---
Subjective Alert and oriented He is on Levophed at 43 mics 3 liters NC O2 Changes from previous H/P or p: Changes Eyes: No Pain, No Vision change, No Conjunctivae inflammation, No Eyelid inflammation, No Other, No Redness ENT: No Ear pain, No Ear discharge, No Nose pain, No Nose discharge, No Nose congestion, No Mouth pain, No Mouth swelling, No Throat pain, No Throat swelling, No Other Cardiovascular: No Chest Pain, No Palpitations, No Orthopnea, No Paroxysmal Noc. Dyspnea, No Edema, No Lt Headedness, No Other Respiratory: No Cough, No Dry, No Shortness of breath, No SOB with excertion, No Wheezing, No Hemoptysis, No Pleuritic Pain, No Sputum, No Other Gastrointestinal: No Nausea, No Vomiting, No Abdominal Pain, No Diarrhea, No Constipation, No Melena, No Hematochezia, No Other Genitourinary: No Dysuria, No Frequency, No Incontinence, No Hematuria, No Retention, No Other Musculoskeletal: No other, No neck pain, No shoulder pain, No arm pain, No back pain, No hand pain, No leg pain, No foot pain Skin: No Rash, No Lesions, No Jaundice, No Bruising, No Other Objective Vitals Vital Signs Date Time Temp Pulse Resp B/P (MAP) Pulse Ox O2 Delivery O2 Flow Rate FiO2 07/22/24 14:00 79 16 90/37 (54) 100 07/22/24 14:00 Nasal Cannula* 2 28 07/22/24 12:00 98.0 98.0 Intake/Output Intake and Output 07/22/24 07:00 Intake Total 3023.75 ml Output Total 3100 ml Balance -76.25 ml Intake Oral 650 ml IV Total 2373.75 ml Output Urine Total 3100 ml General Appearance: Alert (Somnolent, off sedation), Oriented X3, Cooperative, No acute distress Lungs: Clear to auscultation, Normal air movement Chest/Breasts: Other (Bilateral rhonchi and crackles diffusely) Cardiovascular: Regular rate, Normal S1 Abdomen: Normal bowel sounds, Soft, No tenderness Extremities: No edema Medications Current Medications Medications Dose Ordered Sig/Sandra Route Start Time Stop Time Status Last Admin Dose Admin Ondansetron HCl 4 mg Q4HP PRN IV 07/02/24 23:15 07/13/24 20:21 4 MG Nitroglycerin 0.4 mg Q5MINP PRN SL 07/02/24 23:15 Acetaminophen 650 mg Q6HP PRN GT 07/03/24 12:30 Hold 07/04/24 03:53 650 MG Enoxaparin Sodium 40 mg DAILY SC 07/04/24 10:00 07/22/24 11:37 40 MG Insulin Glargine 10 units BID@0700,2200 SC 07/03/24 22:00 07/22/24 06:41 10 UNITS Morphine Sulfate 2 mg Q4HPRN PRN IV 07/10/24 11:00 07/22/24 08:34 2 MG Pantoprazole Sodium 40 mg DAILY IV 07/12/24 13:45 07/22/24 11:37 40 MG Propofol 100 ml @ 2.22 mls/hr Q24H IV 07/13/24 08:00 Cancel Trimethoprim/ Sulfamethoxazole 10 ml @ 0 mls/hr PER PHARMACY IV 07/13/24 10:45 Trimethoprim/ Sulfamethoxazole 22.5 ml/Dextrose 522.5 ml @ 348.333 mls/hr Q8HR IV 07/13/24 14:00 07/22/24 05:08 348.333 MLS/HR Sodium Chloride 10 ml QSHIFT@10,22 IV 07/14/24 22:00 07/22/24 11:40 10 ML Norepinephrine Bitartrate 250 ml @ 3.75 mls/hr Q24H IV 07/15/24 13:30 07/21/24 17:51 7.5 MLS/HR Micafungin Sodium 100 mg/Sodium Chloride 100 ml @ 100 mls/hr DAILY IV 07/15/24 17:00 07/22/24 11:39 100 MLS/HR Diagnostic Test (Pha) 1 strip ACHS 07/18/24 07:00 07/22/24 11:40 1 STRIP Insulin Human Regular HS SC 07/18/24 22:00 07/21/24 21:37 3 UNITS Insulin Human Regular AC SC 07/18/24 07:00 07/22/24 12:15 3 UNITS Dextrose 50 ml UD PRN IV 07/18/24 06:30 Acetaminophen/ Hydrocodone Bitart 1 tab Q6HPRN PRN PO 07/18/24 11:30 07/22/24 06:35 1 TAB Levalbuterol HCl 0.625 mg Q4HR PRN NEB 07/21/24 15:15 07/22/24 08:47 0.625 MG Budesonide 0.5 mg BID PRN NEB 07/21/24 15:30 Hold Enteral Nutritional Formula 240 ml TIDWM PO 07/21/24 18:00 07/22/24 13:46 240 ML Alprazolam 0.25 mg Q8HP PRN PO 07/21/24 16:45 Docusate Sodium 100 mg BID PO 07/21/24 22:00 07/22/24 11:37 100 MG Magnesium Oxide 400 mg DAILY PO 07/22/24 10:00 07/22/24 11:38 400 MG Zinc Sulfate 220 mg DAILY PO 07/22/24 10:00 07/22/24 11:38 220 MG Ascorbic Acid 500 mg BID PO 07/21/24 22:00 07/22/24 11:39 500 MG Midodrine 10 mg TID@0600,1200,1800 PO 07/22/24 13:45 07/22/24 13:59 10 MG Laboratory Results Laboratory Tests 07/22/24 03:17 Chemistry Test 07/22/24 03:17 Albumin 2.7 g/dL (3.2-4.8) L Calcium Level 9.0 mg/dL (8.7-10.4) Total Protein 6.5 g/dL (5.7-8.2) LFT Test 07/22/24 03:17 Alanine Aminotransferase (ALT) < 9 U/L (7-40) Alkaline Phosphatase 92 U/L (46-116) Aspartate Amino Transferase (AST) 9 U/L (13-40) L Total Bilirubin < 0.2 mg/dL (0.2-1.0) L Urinalysis Test 07/02/24 23:08 Urine Color Light-yellow (Yellow) Urine Clarity Clear (Clear) Urine pH 5.0 (5.0-9.0) Urine Specific [place] 1.025 (1.001-1.035) Urine Protein Negative (Negative) Urine Ketones 4+ (Negative) H Urine Blood Negative /uL (Negative) Urine Nitrite Negative (Negative) Urine Bilirubin Negative (Negative) Urine Urobilinogen Normal mg/dL (Negative) Urine Leukocyte Esterase Negative /uL (Negative) Urine RBC <1 /hpf (0 - 3) Urine WBC 1 /hpf (0 - 3) Urine Squamous Epithelial Cells None seen /hpf (<5) Urine Bacteria None seen /hpf (None Seen) Urine Glucose 4+ mg/dL (Normal) H Microbiology Microbiology Date/Time Source Procedure Growth Status 07/19/24 14:47 Buttock Gram Stain - Final Resulted 07/19/24 14:47 Buttock Anaerobic Culture - Preliminary Resulted 07/19/24 14:47 Aerobic Culture - Final Enterococcus faecalis Resulted 07/13/24 16:02 Urine - [place] Urine Culture - Final Yeast, not Araceli albicans Complete 07/08/24 18:27 Bronchial Washings Gram Stain - Final Complete 07/08/24 18:27 Respiratory Culture - Final Staphylococcus aureus Stenotrophomonas maltophilia Complete 07/03/24 19:35 Blood Blood Culture - Final Staph hominis subsp homins Complete Assessment/Plan Assessment/Plan DKA, resolved DM, uncontrolled Acute hypoxic respiratory failure s/p intubation on mechanical ventilator ZOYA Sepsis w septic shock Hypernatremia Fever B feet ulcers Thrombocytopenia due to sepsis, improved Sacral decub ulcer PLAN: 07/03/2024: IV fluids, change to 1/2 NS Nephrology consult Vasopressors as needed Blood, urine and sputum cultures IV antibiotics: Empiric, change to Cefepime and Vanco Sedation as needed Start Lantus Full code Discussed with family at the bedside Advance directives discussed with family x 20 minutes 07/04/2024: Diarrhea: Check the stools for C diff ZOYA: Continue IV fluids Hypernatremia: Start free water Sepsis with septic shock: Continue cefepime and vancomycin Hypotension: Vasopressors Uterine cultures and respiratory cultures are Discussed with the family at the bedside Lantus 10 units twice a day Accu-Cheks q.4 hours 07/05/24: Continue IV fluids 1/2 NS Vancomycin + Cefepime Free water Minimize sedation Taper down Levophed Podiatry consult MRSA screen: Negative Lantus Discussed with at the bedside 07/06/24: Hypernatremia: Repeat labs Hypokalemia: Replace Vancomycin and Cefepime Continue free water 09/06/2024: Hypernatremia: Continue free water, start tube feeding with Glucerna , discontinue the IV fluids IV antibiotics: Cefepime and vancomycin Lantus Sliding scale Nephrology consult Pulmonary consult Discussed with the at the bedside Full code 07/08/2024: Continue free water to correct hypernatremia C-PAP trial in progress Wound infection with Staph aureus Sputum culture showed Staph aureus and Klebsiella pneumoniae and Citrobacter Blood culture with Staph home in his Cefepime and vancomycin Endoscopy for today Extubation possibly after bronchoscopy today 07/09/24: Change IV antibiotics to Levaquin and Diflucan Free water Hold sedation C-PAP, extubate? Replace K+ Discussed with at the bedside 07/10/24: Start IV D5W Swallow eval PT eval IS Out of bed Suction IV Levaquin IV Diflucan Levophed, taper as tolerated Discussed with and sister at the bedside 07/12/2024: Due to fluid overload, chest x-ray shows congestion: DC the IV fluids, Lasix IV 40 mg x 1, Hypokalemia: Replace p.o. DC the [place] Out of bed as tolerated Physical therapy IV antibiotics: Levofloxacin and Diflucan Off the Levophed drip 07/13/2024: Give more Lasix 40 mg IV Continue IV Levaquin and Diflucan Replace potassium Downgrade to the EWA Continue physical therapy Continue med nebs with Mucomyst Discussed with the at the bedside : Sacral ulcer: consult Sx Pulmonary congestion: Lasix 40 mg IV Pneumonia: Bactrim & Micafungin IV Sepsis w septic shock: Levophed Lovenox Protonix Physical therapy 07/17/2024: Give more Lasix 40 mg IV once Continue IV antibiotics with Bactrim and micafungin General surgery is planning on surgery on decubitus ulcer of the sacrum on Friday Coagulopathy to be corrected with vitamin K 07/18/2024: Coagulopathy is improved The patient is scheduled for surgery for his decubitus ulcer of the sacrum tomorrow Continue IV antibiotics Bactrim and micafungin Lasix 20 mg IV 1 dose Tapered the Levophed off as tolerated Discussed with the at the bedside 07/19/2024: Levophed as needed for blood pressure support Continue IV Bactrim and micafungin Surgery today per Dr. Grewal Lasix as needed 07/20/2024: Still on Levophed, tapered down as tolerated Add midodrine 2.5 mg 3 times a day Continue IV Bactrim and micafungin Continue physical therapy and out of bed as tolerated Discussed with the at the bedside 07/21/24: Low BP: Increase midodrine to 5 mg tid Add Glucerna Constipation: Lactulose Colace Taper down Levophed IV antibiotics: Bactrim & Micafungin Lantus 10 units bid Advance diet Discussed with at the bedside 07/22/2024: Increase midodrine to 10 mg t.i.d. Taper down the Levophed as tolerated Continue IV Bactrim and micafungin Out of bed as tolerated Physical therapy Discussed with the at the bedside downgrade from ICU once he is off the Levophed Plan discussed with: Patient, Spouse My Orders Orders - MEHRAN GUERRERO MD Procedure Category Date Status Time Nutritional PHA 07/21/24 In Process Supplements (Glucerna 18:00 Alprazolam Tablet PHA 07/21/24 In Process (Xanax Tablet) 16:45 Docusate Sodium PHA 07/21/24 In Process Capsule (Colace 22:00 Magnesium Oxide PHA 07/22/24 In Process Tablet (Mag-Ox Tablet) 10:00 Zinc Sulfate PHA 07/22/24 In Process 10:00 Ascorbic Acid Tablet PHA 07/21/24 In Process (Vitamin C Tablet) 22:00 Consistent DIET 07/21/24 Transmitted Carb(Ccho)Diabetes Dinner Dietary NOTICE 07/22/24 Transmitted Recommendations 12:15 Midodrine Tablet PHA 07/22/24 In Process (Proamatine Tablet) 13:45 Date of Service: Jul 22, 2024 Billing Provider: MEHRAN GUERRERO MD Common Visit Codes: [id number] INP/OBS CARE(HIGH) MEHRAN GUERRERO MD Jul 22, 2024 14:14
[2024-07-22] MEDS ORDERED: NOREPINEPHRINE 8 MG/250ML KIT 250 ML IV SCH (16:45)
[2024-07-22] MEDS: NOREPINEPHRINE 8 MG/250ML KIT 250 ML IV SCH (18:30)
[2024-07-23] VITALS (93 sets, daily range): BP systolic 74–133; BP diastolic 33–81; PULSE 69–98; RESP 14–28; TEMP 97.6–98.5; O2SAT 92–100
[2024-07-23 03:56] LABS: Basophils # (auto) 0.1 10 ^3/uL (0-0.2); Eosinophils # (auto) 0.1 10 ^3/uL (0-0.8); Lymphocytes % (auto) 13.7 % (10.0-50.0); Monocytes # (auto) 0.3 10 ^3/uL (0-1.3); Red Cell Distribution Width 13.2 % (11.8-14.3); White Blood Cell 7.6 10^3/uL (4.4-10.8)
[2024-07-23 03:58] LABS: Eosinophils % (auto) 1.6 % (0.0-7.0); Hematocrit 31.8 % (41.0-53.0); Hemoglobin 10.6 g/dL (13.5-17.5); Mean Corpuscular Hemoglobin 29.2 pg (28.0-32.0); Mean Corpuscular Hgb Conc. 33.3 g/dL (32.0-36.0); Mean Corpuscular Volume 87.7 fL (80.0-100.0); Monocytes % (auto) 3.7 % (0.0-12.0); Neutrophils # (auto) 6.1 10 ^3/uL (1.6-8.6); Nucleated Red Blood Cells % 0.1 %; Platelet Count (auto) 461 10^3/uL (140-450); Red Blood Cells 3.63 10^6/uL (4.5-5.90)
[2024-07-23 04:01] LABS: Albumin 2.8 g/dL (3.2-4.8); Alkaline Phosphatase 93 U/L (46-116); Anion Gap 2 (5-15); Aspartate Aminotransferase 14 U/L (13-40); BUN/Creatinine Ratio 14.5 (10.0-20.0); Blood Urea Nitrogen 10 mg/dL (9-23); Calcium 8.7 mg/dL (8.7-10.4); Carbon Dioxide 28 mmol/L (20-31); Chloride 97 mmol/L (98-107); Potassium 5.3 mmol/L (3.5-5.1); Sodium 127 mmol/L (136-145)
[2024-07-23 04:02] LABS: Bilirubin, Total < 0.2 mg/dL (0.2-1.0); Total Protein 6.3 g/dL (5.7-8.2)
[2024-07-23 04:10] LABS: Alanine Aminotransferase < 9 U/L (7-40); Glucose 289 mg/dL (74-106)
[2024-07-23] MEDS: SODIUM CHLORIDE 0.9% 1,000 ML IV SCH (08:37)
--- NOTE | 2024-07-23 09:50 | DVHPN2 ---
Subjective He is still on Levophed drip at 2 mics P.o. intake is minimal Hyponatremia is worse at 1:27 a.m. with a potassium of 5.3 and normal kidney function Changes from previous H/P or p: Changes Eyes: No Pain, No Vision change, No Conjunctivae inflammation, No Eyelid inflammation, No Other, No Redness ENT: No Ear pain, No Ear discharge, No Nose pain, No Nose discharge, No Nose congestion, No Mouth pain, No Mouth swelling, No Throat pain, No Throat swelling, No Other Cardiovascular: No Chest Pain, No Palpitations, No Orthopnea, No Paroxysmal Noc. Dyspnea, No Edema, No Lt Headedness, No Other Respiratory: No Cough, No Dry, No Shortness of breath, No SOB with excertion, No Wheezing, No Hemoptysis, No Pleuritic Pain, No Sputum, No Other Gastrointestinal: No Nausea, No Vomiting, No Abdominal Pain, No Diarrhea, No Constipation, No Melena, No Hematochezia, No Other Genitourinary: No Dysuria, No Frequency, No Incontinence, No Hematuria, No Retention, No Other Musculoskeletal: No other, No neck pain, No shoulder pain, No arm pain, No back pain, No hand pain, No leg pain, No foot pain Skin: No Rash, No Lesions, No Jaundice, No Bruising, No Other Objective Vitals Vital Signs Date Time Temp Pulse Resp B/P (MAP) Pulse Ox O2 Delivery O2 Flow Rate FiO2 07/23/24 08:00 72 07/23/24 08:00 19 95 Room Air* 0 21 07/23/24 06:50 103/62 07/23/24 04:00 97.6 97.6 Intake/Output Intake and Output 07/23/24 06:59 Intake Total 2159.541 ml Output Total 3075 ml Balance -915.459 ml Intake Oral 600 ml IV Total 1559.541 ml Output Urine Total 3075 ml General Appearance: Alert (Somnolent, off sedation), Oriented X3, Cooperative, No acute distress Lungs: Clear to auscultation, Normal air movement Chest/Breasts: Other (Bilateral rhonchi and crackles diffusely) Cardiovascular: Regular rate, Normal S1 Abdomen: Normal bowel sounds, Soft, No tenderness Extremities: No edema Medications Current Medications Medications Dose Ordered Sig/Sandra Route Start Time Stop Time Status Last Admin Dose Admin Ondansetron HCl 4 mg Q4HP PRN IV 07/02/24 23:15 07/13/24 20:21 4 MG Nitroglycerin 0.4 mg Q5MINP PRN SL 07/02/24 23:15 Acetaminophen 650 mg Q6HP PRN GT 07/03/24 12:30 Hold 07/04/24 03:53 650 MG Enoxaparin Sodium 40 mg DAILY SC 07/04/24 10:00 07/22/24 11:37 40 MG Insulin Glargine 10 units BID@0700,2200 SC 07/03/24 22:00 07/23/24 06:49 10 UNITS Morphine Sulfate 2 mg Q4HPRN PRN IV 07/10/24 11:00 07/23/24 04:38 2 MG Pantoprazole Sodium 40 mg DAILY IV 07/12/24 13:45 07/22/24 11:37 40 MG Propofol 100 ml @ 2.22 mls/hr Q24H IV 07/13/24 08:00 Cancel Sodium Chloride 10 ml QSHIFT@10,22 IV 07/14/24 22:00 07/22/24 21:15 10 ML Micafungin Sodium 100 mg/Sodium Chloride 100 ml @ 100 mls/hr DAILY IV 07/15/24 17:00 07/22/24 11:39 100 MLS/HR Diagnostic Test (Pha) 1 strip ACHS 07/18/24 07:00 07/23/24 06:41 1 STRIP Insulin Human Regular HS SC 07/18/24 22:00 07/21/24 21:37 3 UNITS Insulin Human Regular AC SC 07/18/24 07:00 07/23/24 06:48 9 UNITS Dextrose 50 ml UD PRN IV 07/18/24 06:30 Acetaminophen/ Hydrocodone Bitart 1 tab Q6HPRN PRN PO 07/18/24 11:30 07/23/24 02:41 1 TAB Levalbuterol HCl 0.625 mg Q4HR PRN NEB 07/21/24 15:15 07/22/24 22:09 0.625 MG Budesonide 0.5 mg BID PRN NEB 07/21/24 15:30 Hold Enteral Nutritional Formula 240 ml TIDWM PO 07/21/24 18:00 07/23/24 08:35 240 ML Alprazolam 0.25 mg Q8HP PRN PO 07/21/24 16:45 Docusate Sodium 100 mg BID PO 07/21/24 22:00 Magnesium Oxide 400 mg DAILY PO 07/22/24 10:00 Zinc Sulfate 220 mg DAILY PO 07/22/24 10:00 07/22/24 11:38 220 MG Ascorbic Acid 500 mg BID PO 07/21/24 22:00 07/22/24 21:14 500 MG Midodrine 10 mg TID@0600,1200,1800 PO 07/22/24 13:45 07/23/24 05:09 10 MG Norepinephrine Bitartrate 250 ml @ 1.875 mls/ hr Q24H IV 07/22/24 18:30 07/23/24 01:09 7.5 MLS/HR Sodium Chloride 1,000 ml @ 60 mls/hr [id number] IV 07/23/24 07:30 07/23/24 08:37 60 MLS/HR Laboratory Results Laboratory Tests 07/23/24 03:05 Chemistry Test 07/23/24 03:05 Albumin 2.8 g/dL (3.2-4.8) L Calcium Level 8.7 mg/dL (8.7-10.4) Total Protein 6.3 g/dL (5.7-8.2) LFT Test 07/23/24 03:05 Alanine Aminotransferase (ALT) < 9 U/L (7-40) Alkaline Phosphatase 93 U/L (46-116) Aspartate Amino Transferase (AST) 14 U/L (13-40) Total Bilirubin < 0.2 mg/dL (0.2-1.0) L Urinalysis Test 07/02/24 23:08 Urine Color Light-yellow (Yellow) Urine Clarity Clear (Clear) Urine pH 5.0 (5.0-9.0) Urine Specific [place] 1.025 (1.001-1.035) Urine Protein Negative (Negative) Urine Ketones 4+ (Negative) H Urine Blood Negative /uL (Negative) Urine Nitrite Negative (Negative) Urine Bilirubin Negative (Negative) Urine Urobilinogen Normal mg/dL (Negative) Urine Leukocyte Esterase Negative /uL (Negative) Urine RBC <1 /hpf (0 - 3) Urine WBC 1 /hpf (0 - 3) Urine Squamous Epithelial Cells None seen /hpf (<5) Urine Bacteria None seen /hpf (None Seen) Urine Glucose 4+ mg/dL (Normal) H Microbiology Microbiology Date/Time Source Procedure Growth Status 07/19/24 14:47 Buttock Gram Stain - Final Resulted 07/19/24 14:47 Buttock Anaerobic Culture - Preliminary Resulted 07/19/24 14:47 Aerobic Culture - Final Enterococcus faecalis Resulted 07/13/24 16:02 Urine - [place] Urine Culture - Final Yeast, not Araceli albicans Complete 07/08/24 18:27 Bronchial Washings Gram Stain - Final Complete 07/08/24 18:27 Respiratory Culture - Final Staphylococcus aureus Stenotrophomonas maltophilia Complete 07/03/24 19:35 Blood Blood Culture - Final Staph hominis subsp homins Complete Assessment/Plan Assessment/Plan DKA, resolved DM, uncontrolled Acute hypoxic respiratory failure s/p intubation on mechanical ventilator ZOYA Sepsis w septic shock Hypernatremia Fever B feet ulcers Thrombocytopenia due to sepsis, improved Sacral decub ulcer PLAN: 07/03/2024: IV fluids, change to 1/2 NS Nephrology consult Vasopressors as needed Blood, urine and sputum cultures IV antibiotics: Empiric, change to Cefepime and Vanco Sedation as needed Start Lantus Full code Discussed with family at the bedside Advance directives discussed with family x 20 minutes 07/04/2024: Diarrhea: Check the stools for C diff ZOYA: Continue IV fluids Hypernatremia: Start free water Sepsis with septic shock: Continue cefepime and vancomycin Hypotension: Vasopressors Uterine cultures and respiratory cultures are Discussed with the family at the bedside Lantus 10 units twice a day Accu-Cheks q.4 hours 07/05/24: Continue IV fluids 1/2 NS Vancomycin + Cefepime Free water Minimize sedation Taper down Levophed Podiatry consult MRSA screen: Negative Lantus Discussed with at the bedside 07/06/24: Hypernatremia: Repeat labs Hypokalemia: Replace Vancomycin and Cefepime Continue free water 09/06/2024: Hypernatremia: Continue free water, start tube feeding with Glucerna , discontinue the IV fluids IV antibiotics: Cefepime and vancomycin Lantus Sliding scale Nephrology consult Pulmonary consult Discussed with the at the bedside Full code 07/08/2024: Continue free water to correct hypernatremia C-PAP trial in progress Wound infection with Staph aureus Sputum culture showed Staph aureus and Klebsiella pneumoniae and Citrobacter Blood culture with Staph home in his Cefepime and vancomycin Endoscopy for today Extubation possibly after bronchoscopy today 07/09/24: Change IV antibiotics to Levaquin and Diflucan Free water Hold sedation C-PAP, extubate? Replace K+ Discussed with at the bedside 07/10/24: Start IV D5W Swallow eval PT eval IS Out of bed Suction IV Levaquin IV Diflucan Levophed, taper as tolerated Discussed with and sister at the bedside 07/12/2024: Due to fluid overload, chest x-ray shows congestion: DC the IV fluids, Lasix IV 40 mg x 1, Hypokalemia: Replace p.o. DC the [place] Out of bed as tolerated Physical therapy IV antibiotics: Levofloxacin and Diflucan Off the Levophed drip 07/13/2024: Give more Lasix 40 mg IV Continue IV Levaquin and Diflucan Replace potassium Downgrade to the EWA Continue physical therapy Continue med nebs with Mucomyst Discussed with the at the bedside : Sacral ulcer: consult Sx Pulmonary congestion: Lasix 40 mg IV Pneumonia: Bactrim & Micafungin IV Sepsis w septic shock: Levophed Lovenox Protonix Physical therapy 07/17/2024: Give more Lasix 40 mg IV once Continue IV antibiotics with Bactrim and micafungin General surgery is planning on surgery on decubitus ulcer of the sacrum on Friday Coagulopathy to be corrected with vitamin K 07/18/2024: Coagulopathy is improved The patient is scheduled for surgery for his decubitus ulcer of the sacrum tomorrow Continue IV antibiotics Bactrim and micafungin Lasix 20 mg IV 1 dose Tapered the Levophed off as tolerated Discussed with the at the bedside 07/19/2024: Levophed as needed for blood pressure support Continue IV Bactrim and micafungin Surgery today per Dr. Grewal Lasix as needed 07/20/2024: Still on Levophed, tapered down as tolerated Add midodrine 2.5 mg 3 times a day Continue IV Bactrim and micafungin Continue physical therapy and out of bed as tolerated Discussed with the at the bedside 07/21/24: Low BP: Increase midodrine to 5 mg tid Add Glucerna Constipation: Lactulose Colace Taper down Levophed IV antibiotics: Bactrim & Micafungin Lantus 10 units bid Advance diet Discussed with at the bedside 07/22/2024: Increase midodrine to 10 mg t.i.d. Taper down the Levophed as tolerated Continue IV Bactrim and micafungin Out of bed as tolerated Physical therapy Discussed with the at the bedside downgrade from ICU once he is off the Levophed 07/23/2024: Sepsis: Discontinue Bactrim due to hyponatremia, consult Infectious Disease, continue micafungin for now Continue Levophed, tapered the dose as tolerated Continue midodrine 10 mg t.i.d. Start normal saline IV fluids Increase Lantus to 15 units twice a day Out of bed as tolerated Discussed with the at the bedside Plan discussed with: Patient, Spouse My Orders Orders - MEHRAN GUERRERO MD Procedure Category Date Status Time Dietary NOTICE 07/22/24 Transmitted Recommendations 12:15 Midodrine Tablet PHA 07/22/24 In Process (Proamatine Tablet) 13:45 Norepinephrine 8 PHA 07/22/24 In Process Mg/250ml Kit 18:30 * Infectious [place]- CONS 07/23/24 Verified Mallzay 09:47 Date of Service: Jul 23, 2024 Billing Provider: MEHRAN GUERRERO MD Common Visit Codes: [id number] INP/OBS CARE(HIGH) MEHRAN GUERRERO MD Jul 23, 2024 09:50
--- NOTE | 2024-07-23 10:15 | DVHINCON2 ---
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 Extubated on 07/09, since then patient has been on oxygen. His chest x-ray shows pulmonary edema however has had pneumonia as well. He status post bronch and brown culture from 07/08 was positive for Staphylococcus aureus and stenotrophomonas. Patient has prolonged hospital stay, he has persistent hypotension currently on pressors of 2 mcg Levophed which is currently down from earlier. Patient also has developed decubitus ulcers status post I and D on 07/19. Wound cultures is growing Enterococcus faecalis Currently patient is on IV Bactrim and IV micafungin. Patient has developed hyponatremia possibly secondary to Bactrim. Infectious Disease consulted to help with management. Antibiotics history Zosyn 07/03 Unasyn 07/13 to 07/14 Cefepime 07/03 to 07/09 Levofloxacin 07/09 to 07/13 (4-5 days) Vancomycin 07/03 to 07/09 ( 6 days) IV Bactrim 07/13-07/23 IV micafungin 07/15 to on going Culture history 07/02 sputum culture grew Staphylococcus aureus (MSSA), Klebsiella pneumoniae ( Ramires sensitive)and Citrobacter 07/03 urine culture from [place] grew E coli and Enterococcus faecalis 07/03 blood culture grew Staph hominis MRSA nasal screen negative 07/05 wound culture from foot grew MSSA and Streptococcus group 07/08: Staphylococcus aureus and stenotrophomonas maltophilia 07/19 wound culture is Enterococcus faecalis Allergies: Coded Allergies: NO KNOWN ALLERGIES (Unverified , 07/02/24) Home Meds Reported Medications Glipizide (Glipizide) 5 Mg Tab, 5 MG PO DAILY for 30 Days, MG 07/04/24 Metformin Hydrochloride (Metformin Hcl) 500 Mg Tab, 500 MG PO IBID for 30 Days, MG 07/04/24 Dapagliflozin Propanediol (Farxiga) 10 Mg Tab, 10 MG PO DAILY, TAB 07/04/24 Gabapentin (Gabapentin) 600 Mg Tab, 600 MG PO BID for 30 Days, MG 07/04/24 Current Medications Current Medications Medications (Trade) Dose Ordered Sig/Sandra Route PRN Reason Start Time Stop Time Status Last Admin Midodrine (Proamatine Tablet) 10 mg TID@0600,1200,1800 PO 07/22/24 13:45 07/23/24 05:09 Norepinephrine Bitartrate 250 ml @ 3.75 mls/hr Q24H IV 07/22/24 16:45 07/22/24 18:18 DC Norepinephrine Bitartrate 250 ml @ 1.875 mls/ hr Q24H IV 07/22/24 18:30 07/23/24 01:09 Sodium Chloride 1,000 ml @ 60 mls/hr [id number] IV 07/23/24 07:30 07/23/24 08:37 Insulin Glargine (Lantus) 15 units BID@0700,2200 SC 07/23/24 22:00 Vital Signs Vital Signs Date Time Temp Pulse Resp B/P (MAP) Pulse Ox O2 Delivery O2 Flow Rate FiO2 07/23/24 08:00 72 07/23/24 08:00 19 95 Room Air* 0 21 07/23/24 06:50 103/62 07/23/24 04:00 97.6 97.6 Physical Exam General alert and oriented HEENT: Atraumatic Neck: No swelling Lungs: decreased breath sounds Cardiovascular: S2 heard no murmur Abdomen: Soft nontender, no organomegaly, nondistended Neuro: Alert and oriented, generalized weakness. skin multiple wounds : has decub and wounds also on feet Psych: Normal mood and affect Labs/Diagnostic Data Labs Test 07/23/24 06:43 07/23/24 03:05 07/21/24 03:17 07/19/24 03:40 Range/Units POC Glucose 279 H 70-106 mg/dl White Blood Count 7.6 # 4.4-10.8 10^3/uL Red Blood Count 3.63 L 4.5-5.90 10^6/uL Hemoglobin 10.6 L 13.5-17.5 g/dL Hematocrit 31.8 L 41.0-53.0 % Mean Corpuscular Volume 87.7 80.0-100.0 fL Mean Corpuscular Hemoglobin 29.2 28.0-32.0 pg Mean Corpuscular Hemoglobin Concent 33.3 32.0-36.0 g/dL Red Cell Distribution Width 13.2 11.8-14.3 % Platelet Count 461 H 140-450 10^3/uL Mean Platelet Volume 6.7 L 6.9-10.8 fL Neutrophils (%) (Auto) 80.0 37.0-80.0 % Lymphocytes (%) (Auto) 13.7 10.0-50.0 % Monocytes (%) (Auto) 3.7 0.0-12.0 % Eosinophils (%) (Auto) 1.6 0.0-7.0 % Basophils (%) (Auto) 1.0 0.0-2.0 % Neutrophils # (Auto) 6.1 1.6-8.6 10 ^3/uL Lymphocytes # (Auto) 1.0 0.4-5.4 10 ^3/uL Monocytes # (Auto) 0.3 0-1.3 10 ^3/uL Eosinophils # (Auto) 0.1 0-0.8 10 ^3/uL Basophils # (Auto) 0.1 0-0.2 10 ^3/uL Nucleated Red Blood Cells 0.1 % Sodium Level 127 L 136-145 mmol/L Potassium Level 5.3 H 3.5-5.1 mmol/L Chloride Level 97 L 98-107 mmol/L Carbon Dioxide Level 28 20-31 mmol/L Anion Gap 2 L 5-15 Blood Urea Nitrogen 10 9-23 mg/dL Creatinine 0.69 L 0.700-1.30 mg/dL Glomerular Filtration Rate Calc 113 >90 mL/min BUN/Creatinine Ratio 14.5 10.0-20.0 Serum Glucose 289 #H 74-106 mg/dL Calcium Level 8.7 8.7-10.4 mg/dL Total Bilirubin < 0.2 L 0.2-1.0 mg/dL Aspartate Amino Transferase (AST) 14 13-40 U/L Alanine Aminotransferase (ALT) < 9 7-40 U/L Alkaline Phosphatase 93 46-116 U/L Total Protein 6.3 5.7-8.2 g/dL Albumin 2.8 L 3.2-4.8 g/dL Magnesium Level 1.7 1.6-2.6 mg/dL Prothrombin Time 11.6 9.3-11.8 sec Prothrombin Time INR 1.10 0.9-1.15 Activated Partial Thromboplast Time 34.3 24.5-34.5 SEC Test 07/18/24 03:20 07/15/24 03:35 07/14/24 07:55 07/13/24 15:24 Range/Units Differential Total Cells Counted 100.0 100 Neutrophils % (Manual) 80 37.0-80.0 Band Neutrophils % (Manual) 0 Lymphocytes % (Manual) 14 10.0-50.0 Monocytes % (Manual) 5 0-12 Eosinophils % (Manual) 1 0-7 Basophils % (Manual) 0 0.0-2.0 Metamyelocytes % (manual) 0 Myelocytes % (Manual) 0 Promyelocytes % (Manual) 0 Blast Cells % (Manual) 0 Reactive Lymphocytes 0 Platelet Estimate Adequate Phosphorus Level 2.3 L 2.4-5.1 mg/dL Triglycerides Level 113 < 150 mg/dL Blood Gas Specimen Type Arterial Blood Gas Sample Site Right radial Blood Gas Patient Temperature 37.0 Arterial Blood Date Drawn [id number] Arterial Blood pH 7.514 H 7.350-7.450 Arterial Blood Partial Pressure CO2 39.7 35.0-48.0 mmHg Arterial Blood Partial Pressure O2 97.7 83.0-108.0 mmHg Arterial Blood HCO3 31.3 H 21.0-28.0 mmol/L Arterial Blood Oxygen Saturation 97.6 94.0-98.0 % Arterial Blood Base Excess 7.7 H -2.0-3.0 mmol/L Arterial Blood Oxyhemoglobin 96.9 94.0-98.0 % Arterial Blood Carboxyhemoglobin 0.4 L 0.5-1.5 % Arterial Blood Methemoglobin 0.3 0.0-1.5 % Serge Test Yes Blood Gas Total Hemoglobin 11.50 L 13.5-17.5 g/dL Blood Gas Set Respiration Rate 12.0 Blood Gas Modality Mask - bipap FiO2 % 90.0 Blood Gas EPAP 5 Blood Gas IPAP 12 Blood Gas Critical Value Read Back yes Blood Gas Notified Whom Richa santana md Blood Gas Notified Time [id number] Blood Gas Notified By Safety Coordinator niurka key Test 07/13/24 11:25 07/12/24 10:22 07/10/24 03:01 07/09/24 10:33 Range/Units Blood Gas Liter Flow 15.00 Blood Gas Spontaneous Rate 22 Blood Gas Spontaneous Tidal Volume 559 Smudge Cells 1 /100 WBC Blood Gas Pressure Support 8 Blood Gas PEEP or CPAP 5.0 Test 07/08/24 20:00 07/08/24 10:00 07/08/24 03:31 07/07/24 06:15 Range/Units Blood Gas Comments Vancomycin Level Trough 11.7 H 5-10 ug/mL Large Platelets Few Anisocytosis (manual) Slight Blood Gas Tidal Volume 500.0 Test 07/04/24 10:38 07/04/24 03:42 07/03/24 16:51 07/03/24 10:06 Range/Units Stool Occult Blood Positive Negative Stool Occult Blood Sample #3 Negative Cholesterol Level 117 < 200 mg/dL LDL Cholesterol 38 < 100 mg/dL HDL Cholesterol 42 40-59 mg/dL Lipase 56 H 12-53 U/L Thyroid Stimulating Hormone (TSH) 0.38 L 0.55-4.78 uIU/mL Urine Opiates Screen Neg NEGATIVE Urine Fentanyl Screen Neg NEGATIVE Urine Barbiturates Screen Neg NEGATIVE Urine Phencyclidine Screen Neg NEGATIVE Urine Amphetamines Screen Neg NEGATIVE Urine Benzodiazepines Screen Pos NEGATIVE Urine Cocaine Screen Neg NEGATIVE Urine Cannabinoids Screen Neg NEGATIVE Hemoglobin A1c > 14.0 H <5.7 % A1C Test 07/02/24 23:08 07/02/24 21:15 07/02/24 20:57 Range/Units Urine Color Light-yellow Yellow Urine Clarity Clear Clear Urine pH 5.0 5.0-9.0 Urine Specific [place] 1.025 1.001-1.035 Urine Protein Negative Negative Urine Ketones 4+ H Negative Urine Blood Negative Negative /uL Urine Nitrite Negative Negative Urine Bilirubin Negative Negative Urine Urobilinogen Normal Negative mg/dL Urine Leukocyte Esterase Negative Negative /uL Urine RBC <1 0 - 3 /hpf Urine WBC 1 0 - 3 /hpf Urine Squamous Epithelial Cells None seen <5 /hpf Urine Bacteria None seen None Seen /hpf Urine Glucose 4+ H Normal mg/dL Venous Blood pH 7.179 *L 7.320-7.430 Venous Blood pCO2 at Patient Temp 17.8 L 38.0-54.0 mmHg Venous Blood pO2 at Patient Temp 70.7 H 23.0-48.0 mmHg Venous Blood HCO3 6.5 L 22.0-29.0 mmol/L Venous Blood Base Excess -19.6 L -2.0-3.0 mmol/L Serum Osmolality 354 H 278-298 mOsm/kg Lactic Acid Level 1.0 0.4-2.0 mmol/L Beta-Hydroxybutyric Acid > 4.500 H < 0.4 mmol/L Microbiology Date/Time Source Procedure Growth Status 07/19/24 14:47 Buttock Gram Stain - Final Resulted 07/19/24 14:47 Buttock Anaerobic Culture - Preliminary Resulted 07/19/24 14:47 Aerobic Culture - Final Enterococcus faecalis Resulted 07/13/24 16:02 Urine - [place] Urine Culture - Final Yeast, not Araceli albicans Complete 07/08/24 18:27 Bronchial Washings Gram Stain - Final Complete 07/08/24 18:27 Respiratory Culture - Final Staphylococcus aureus Stenotrophomonas maltophilia Complete 07/03/24 19:35 Blood Blood Culture - Final Staph hominis subsp homins Complete Assessment A 49 yo male with Hyponatremia due to BActrim ( antibiotics side effects) Sepsis with septic shock : improving Hypotension Hyperkalemia ( due to Bactrim) Decub ulcers MSSA pneumonia DKA resolved acut hypoxic respiratory failure recommendations DC Bactrim, hyponatremia and hyperkalemia possibly secondary to Bactrim Patient has received prolonged course of antibiotics with vancomycin followed by levofloxacin and Bactrim hence more than adequately treated for MSSA pneumonia DC IV micafungin, urine is colonized secondary to [place] catheter Continue to monitor Patient has pulmonary edema, consider gentle diuresis Continue wound care for sacral decubitus ulcer, frequent turn and offloading Patient is still on pressors, however the requirement has come down We will continue to follow Total critical time more than 45 minutes spent during the encounter in coordinating care, reviewing document and managing Plan discussed with physician Plan discussed with: Other CIRO GUERRA MD Jul 23, 2024 10:15
[2024-07-23] MEDS: INSULIN LANTUS (GLARGINE) 1 /0.01ml (100units/ml) SC SCH (22:28)
[2024-07-24] VITALS (98 sets, daily range): BP systolic 68–139; BP diastolic 26–95; PULSE 78–106; RESP 13–31; TEMP 98.1–99.9; O2SAT 91–100
[2024-07-24 03:51] LABS: Basophils # (auto) 0.1 10 ^3/uL (0-0.2); Eosinophils # (auto) 0.2 10 ^3/uL (0-0.8); Eosinophils % (auto) 3.1 % (0.0-7.0); Hematocrit 29.5 % (41.0-53.0); Hemoglobin 9.9 g/dL (13.5-17.5); Lymphocytes % (auto) 19.2 % (10.0-50.0); Mean Corpuscular Hemoglobin 29.2 pg (28.0-32.0); Mean Corpuscular Hgb Conc. 33.6 g/dL (32.0-36.0); Monocytes # (auto) 0.3 10 ^3/uL (0-1.3); Monocytes % (auto) 4.8 % (0.0-12.0); Neutrophils # (auto) 3.9 10 ^3/uL (1.6-8.6); Neutrophils % (auto) 71.9 % (37.0-80.0); Nucleated Red Blood Cells % 0.2 %; Platelet Count (auto) 439 10^3/uL (140-450); Red Blood Cells 3.39 10^6/uL (4.5-5.90); Red Cell Distribution Width 13.1 % (11.8-14.3); White Blood Cell 5.4 10^3/uL (4.4-10.8)
[2024-07-24 04:11] LABS: Albumin 2.7 g/dL (3.2-4.8); Alkaline Phosphatase 105 U/L (46-116); Anion Gap 4 (5-15); Aspartate Aminotransferase 14 U/L (13-40); Blood Urea Nitrogen 9 mg/dL (9-23); Calcium 8.7 mg/dL (8.7-10.4); Carbon Dioxide 25 mmol/L (20-31); Chloride 103 mmol/L (98-107); Glucose 209 mg/dL (74-106); Magnesium 1.7 mg/dL (1.6-2.6); Potassium 4.6 mmol/L (3.5-5.1)
[2024-07-24 04:12] LABS: Bilirubin, Total 0.2 mg/dL (0.2-1.0)
[2024-07-24 04:18] LABS: Alanine Aminotransferase < 9 U/L (7-40); Sodium 132 mmol/L (136-145)
--- NOTE | 2024-07-24 09:58 | DVHPN2 ---
Progress Note - Dictate Date Seen: Jul 24, 2024 Medical Necessity Reason Pt with a Central, PICC or Fol: Yes The following are medically ne: Jesus Catheter Reason for jesus catheter: Strict I&O Subjective Patient was seen and evaluated. at bedside. He is wake and responsive, alert and oriented x4. He reports intense pressure and pain in the rectal area. Jesus in place draining clear yellow urine to gravity. Wound care performed. Antibiotics history Zosyn 07/03 Unasyn 07/13 to 07/14 Cefepime 07/03 to 07/09 Levofloxacin 07/09 to 07/13 (4-5 days) Vancomycin 07/03 to 07/09 ( 6 days) IV Bactrim 07/13-07/23 IV micafungin 07/15 to on going Culture history 07/02 sputum culture grew Staphylococcus aureus (MSSA), Klebsiella pneumoniae ( Ramires sensitive)and Citrobacter 07/03 urine culture from [place] grew E coli and Enterococcus faecalis 07/03 blood culture grew Staph hominis MRSA nasal screen negative 07/05 wound culture from foot grew MSSA and Streptococcus group 07/08: Staphylococcus aureus and stenotrophomonas maltophilia 07/19 wound culture is Enterococcus faecalis vital signs Vital Sign Date Time Temp Pulse Resp B/P (MAP) Pulse Ox O2 Delivery O2 Flow Rate FiO2 07/24/24 08:00 80 21 95 Nasal Cannula* 2 28 07/24/24 06:30 119/65 (83) 07/24/24 04:00 98.1 98.1 Total Intake and Output 07/23/24 07/23/24 07/24/24 15:00 23:00 07:00 Intake Total 536.875 ml 643.125 ml 1175.625 ml Output Total 750 ml 1800 ml Balance 536.875 ml -106.875 ml -624.375 ml medications Current Medications Medications Dose Ordered Sig/Sandra Route Start Time Stop Time Status Last Admin Dose Admin Ondansetron HCl 4 mg Q4HP PRN IV 07/02/24 23:15 07/13/24 20:21 4 MG Nitroglycerin 0.4 mg Q5MINP PRN SL 07/02/24 23:15 Acetaminophen 650 mg Q6HP PRN GT 07/03/24 12:30 Hold 07/04/24 03:53 650 MG Enoxaparin Sodium 40 mg DAILY SC 07/04/24 10:00 07/23/24 10:41 40 MG Morphine Sulfate 2 mg Q4HPRN PRN IV 07/10/24 11:00 07/23/24 04:38 2 MG Pantoprazole Sodium 40 mg DAILY IV 07/12/24 13:45 07/23/24 10:43 40 MG Propofol 100 ml @ 2.22 mls/hr Q24H IV 07/13/24 08:00 Cancel Sodium Chloride 10 ml QSHIFT@ IV 07/14/24 22:00 07/23/24 22:26 10 ML Diagnostic Test (Pha) 1 strip ACHS 07/18/24 07:00 07/24/24 06:33 1 STRIP Insulin Human Regular HS SC 07/18/24 22:00 07/23/24 22:41 4 UNITS Insulin Human Regular AC SC 07/18/24 07:00 07/24/24 06:32 9 UNITS Dextrose 50 ml UD PRN IV 07/18/24 06:30 Acetaminophen/ Hydrocodone Bitart 1 tab Q6HPRN PRN PO 07/18/24 11:30 07/23/24 02:41 1 TAB Levalbuterol HCl 0.625 mg Q4HR PRN NEB 07/21/24 15:15 07/24/24 02:50 0.625 MG Budesonide 0.5 mg BID PRN NEB 07/21/24 15:30 Hold Enteral Nutritional Formula 240 ml TIDWM PO 07/21/24 18:00 07/24/24 08:00 240 ML Alprazolam 0.25 mg Q8HP PRN PO 07/21/24 16:45 Docusate Sodium 100 mg BID PO 07/21/24 22:00 07/23/24 22:26 100 MG Magnesium Oxide 400 mg DAILY PO 07/22/24 10:00 07/23/24 10:42 400 MG Zinc Sulfate 220 mg DAILY PO 07/22/24 10:00 07/23/24 10:42 220 MG Ascorbic Acid 500 mg BID PO 07/21/24 22:00 07/23/24 22:26 500 MG Midodrine 10 mg TID@0600,1200,1800 PO 07/22/24 13:45 07/24/24 06:10 10 MG Norepinephrine Bitartrate 250 ml @ 1.875 mls/ hr Q24H IV 07/22/24 18:30 07/23/24 01:09 7.5 MLS/HR Sodium Chloride 1,000 ml @ 60 mls/hr [id number] IV 07/23/24 07:30 07/23/24 23:40 60 MLS/HR Insulin Glargine 15 units BID@0700,2200 SC 07/23/24 22:00 07/24/24 06:31 15 UNITS objective General alert and oriented HEENT: Atraumatic Neck: No swelling Lungs: decreased breath sounds Cardiovascular: S2 heard no murmur Abdomen: Soft nontender, no organomegaly, nondistended Neuro: Alert and oriented, generalized weakness. skin multiple wounds : has decub and wounds also on feet Psych: Normal mood and affect laboratory and microbiology Laboratory Tests 07/24/24 03:10 Test 07/24/24 03:10 Range/Units Serum Glucose 209 H 74-106 mg/dL Assessment/Plan Patient is a 49 [id number] with Hyponatremia due to BActrim ( antibiotics side effects) Sepsis with septic shock : improving Hypotension Hyperkalemia ( due to Bactrim) Decub ulcers MSSA pneumonia DKA resolved acute hypoxic respiratory failure Recommendations DC Bactrim, hyponatremia and hyperkalemia possibly secondary to Bactrim Patient has received prolonged course of antibiotics with vancomycin followed by levofloxacin and Bactrim hence more than adequately treated for MSSA pneumonia DC IV micafungin, urine is colonized secondary to Jesus catheter Continue to monitor Patient has pulmonary edema, consider gentle diuresis Continue wound care for sacral decubitus ulcer, frequent turn and offloading Patient is still on pressors, however the requirement has come down We will continue to follow Total critical time more than 35 minutes spent during the encounter in coordinating care, reviewing document and managing Plan discussed with physician Dietary Evaluation Review Comments: 1) If GI is preferred route consider Nepro @ 45 ml/hr goal rate as tolerated 2) If pt remains NPO >7 days consider TPN to meet at least 75% of estimated needs 3) Advance pt diet when medically feasible to a CCHO 60g, Renal diet modified per ADVERTISING AGENCY MANAGER recommendations 4) Continue current plan of care Expected Outcomes/Goals: 1. Pt will consume >75% of estimated needs within 2-3 days Plan discussed with: Spouse, Other CIRO GUERRA MD Jul 24, 2024 09:58
--- NOTE | 2024-07-24 13:23 | DVHPN2 ---
Progress Note - Dictate Date Seen: Jul 24, 2024 Medical Necessity Reason Pt with a Central, PICC or Fol: Yes The following are medically ne: Jesus Catheter Reason for jesus catheter: Strict I&O Subjective Patient seen and examined at bedside. On supplemental oxygen Overnight events reviewed. vital signs Vital Sign Date Time Temp Pulse Resp B/P (MAP) Pulse Ox O2 Delivery O2 Flow Rate FiO2 07/24/24 12:33 97 Nasal Cannula* 2 28 07/24/24 12:33 87 19 07/24/24 11:45 127/95 (106) 07/24/24 07:45 98.8 98.8 Total Intake and Output 07/23/24 07/23/24 07/24/24 15:00 23:00 07:00 Intake Total 536.875 ml 643.125 ml 1241.250 ml Output Total 750 ml 1800 ml Balance 536.875 ml -106.875 ml -558.750 ml medications Current Medications Medications Dose Ordered Sig/Sandra Route Start Time Stop Time Status Last Admin Dose Admin Ondansetron HCl 4 mg Q4HP PRN IV 07/02/24 23:15 07/13/24 20:21 4 MG Nitroglycerin 0.4 mg Q5MINP PRN SL 07/02/24 23:15 Acetaminophen 650 mg Q6HP PRN GT 07/03/24 12:30 Hold 07/04/24 03:53 650 MG Enoxaparin Sodium 40 mg DAILY SC 07/04/24 10:00 07/24/24 10:05 40 MG Morphine Sulfate 2 mg Q4HPRN PRN IV 07/10/24 11:00 07/23/24 04:38 2 MG Pantoprazole Sodium 40 mg DAILY IV 07/12/24 13:45 07/24/24 10:05 40 MG Propofol 100 ml @ 2.22 mls/hr Q24H IV 07/13/24 08:00 Cancel Sodium Chloride 10 ml QSHIFT@10,22 IV 07/14/24 22:00 07/24/24 10:05 10 ML Diagnostic Test (Pha) 1 strip ACHS 07/18/24 07:00 07/24/24 06:33 1 STRIP Insulin Human Regular HS SC 07/18/24 22:00 07/23/24 22:41 4 UNITS Insulin Human Regular AC SC 07/18/24 07:00 07/24/24 12:19 3 UNITS Dextrose 50 ml UD PRN IV 07/18/24 06:30 Acetaminophen/ Hydrocodone Bitart 1 tab Q6HPRN PRN PO 07/18/24 11:30 07/23/24 02:41 1 TAB Levalbuterol HCl 0.625 mg Q4HR PRN NEB 07/21/24 15:15 07/24/24 12:32 0.625 MG Budesonide 0.5 mg BID PRN NEB 07/21/24 15:30 Hold Enteral Nutritional Formula 240 ml TIDWM PO 07/21/24 18:00 07/24/24 12:20 240 ML Alprazolam 0.25 mg Q8HP PRN PO 07/21/24 16:45 Docusate Sodium 100 mg BID PO 07/21/24 22:00 07/24/24 10:05 100 MG Magnesium Oxide 400 mg DAILY PO 07/22/24 10:00 07/24/24 10:05 400 MG Zinc Sulfate 220 mg DAILY PO 07/22/24 10:00 07/24/24 10:05 220 MG Ascorbic Acid 500 mg BID PO 07/21/24 22:00 07/24/24 10:05 500 MG Midodrine 10 mg TID@0600,1200,1800 PO 07/22/24 13:45 07/24/24 12:13 10 MG Norepinephrine Bitartrate 250 ml @ 1.875 mls/ hr Q24H IV 07/22/24 18:30 07/23/24 01:09 7.5 MLS/HR Sodium Chloride 1,000 ml @ 60 mls/hr [id number] IV 07/23/24 07:30 07/23/24 23:40 60 MLS/HR Insulin Glargine 15 units BID@0700,2200 SC 07/23/24 22:00 07/24/24 06:31 15 UNITS objective Gen.: Patient lying in bed in no apparent distress. On supplemental oxygen Head: Normocephalic, atraumatic. Eyes: EOMI/PERRLA. Ears: Normal hearing. Normal anatomy. Neck/trachea: Trachea midline, supple. Nose: Normal external anatomy. Mouth: Moist mucous membranes. Chest: Decreased air entry bilaterally. No wheezing or rhonchi. Cardiovascular: Positive S1, positive S2. Regular rate and rhythm. Abdomen: Positive bowel sounds in all 4 quadrants. Soft, non-tender, non- distended. : Deferred. Rectal: Deferred. Skin: Warm, dry. Intact. Extremities: 2+ radial pulses bilaterally. No lower extremity edema. Neuro: Awake, alert, oriented x3. No gross motor or sensory deficits. Cranial nerves II through XII intact. Gait not assessed. laboratory and microbiology Laboratory Tests 07/24/24 03:10 Test 07/24/24 03:10 Range/Units Serum Glucose 209 H 74-106 mg/dL Assessment/Plan Impression: Acute hypoxic respiratory failure, improving Diabetic ketoacidosis, improved Acute kidney injury Cachexia with a BMI of 18.8 Pseudohyponatremia due to hyperglycemia Buttock wound: Enterococcus faecalis UTI: Yeast. Pneumonia, Stenotrophomonas maltophilia and Staphylococcus aureus Plan: On room air IS Bronchodilators Pulmicort BID Continue antibiotics On pressors for hemodynamic support. On Levophed 2 mcg/min Titrate to keep SBP above 90 mmHg. On midodrine Completed micafungin course. Maintain euvolemia. Monitor renal function Monitor electrolytes, supplement as necessary Potassium supplementation Pain control/anxiolytic PRN Avoid oversedation Nutritional supplementation with Glucerna. Accucheks, ISS Labs and imaging reviewed GI/DVT prophylaxis. Prognosis: Guarded given multiple comorbidities. Condition: Critical Rest of plan per hospitalist and other consultants. A total of 35 minutes of critical care time was spent reviewing the patient record, examining the patient, making a diagnostic and therapeutic plan, discussing this plan with the medical personnel, following up on diagnostic studies and following the patient for clinical stability excluding any and all procedures. At least 50% of this time was spent in direct, [id number] contact. Thank you Dr Saucedo for allowing me to participate in this patient's care. Further recommendations will depend on patient's clinical course. Please do not hesitate to contact me if you have any questions or concerns. This medical document was created using an electronic medical record system with [employer] system. Although this document has been carefully reviewed, there may still be some phonetic and typographical errors. These areas are purely typographical due to imperfections of the software programs, and do not reflect any compromise in the patient's medical care. Dietary Evaluation Review Comments: 1) If GI is preferred route consider Nepro @ 45 ml/hr goal rate as tolerated 2) If pt remains NPO >7 days consider TPN to meet at least 75% of estimated needs 3) Advance pt diet when medically feasible to a CCHO 60g, Renal diet modified per CELLULAR PHONE REPAIRER recommendations 4) Continue current plan of care Expected Outcomes/Goals: 1. Pt will consume >75% of estimated needs within 2-3 days Plan discussed with: Patient, Spouse, Other (LUKE Winchester MD) Critical Care Time(min): 35 NADER ALLEN MD Jul 24, 2024 13:23
--- NOTE | 2024-07-24 14:07 | DVHPN2 ---
Subjective The patient is seen and examined at bedside. Remained tired. No complaint. No nausea or vomiting. Reviewed: Care Plan, H&P, Labs, Medications, Previous Orders, Radiology Changes from previous H/P or p: No Changes Eyes: No Pain, No Vision change, No Conjunctivae inflammation, No Eyelid inflammation, No Other, No Redness ENT: No Ear pain, No Ear discharge, No Nose pain, No Nose discharge, No Nose congestion, No Mouth pain, No Mouth swelling, No Throat pain, No Throat swelling, No Other Cardiovascular: No Chest Pain, No Palpitations, No Orthopnea, No Paroxysmal Noc. Dyspnea, No Edema, No Lt Headedness, No Other Respiratory: No Cough, No Dry, No Shortness of breath, No SOB with excertion, No Wheezing, No Hemoptysis, No Pleuritic Pain, No Sputum, No Other Gastrointestinal: No Nausea, No Vomiting, No Abdominal Pain, No Diarrhea, No Constipation, No Melena, No Hematochezia, No Other Genitourinary: No Dysuria, No Frequency, No Incontinence, No Hematuria, No Retention, No Other Musculoskeletal: No other, No neck pain, No shoulder pain, No arm pain, No back pain, No hand pain, No leg pain, No foot pain Skin: No Rash, No Lesions, No Jaundice, No Bruising, No Other Objective Vitals Vital Signs Date Time Temp Pulse Resp B/P (MAP) Pulse Ox O2 Delivery O2 Flow Rate FiO2 07/24/24 14:00 100 07/24/24 14:00 16 95 Nasal Cannula* 2 28 07/24/24 13:57 133/74 07/24/24 07:45 98.8 98.8 Intake/Output Intake and Output 07/24/24 07:00 Intake Total 2421.250 ml Output Total 2550 ml Balance -128.750 ml Intake Oral 870 ml IV Total 1551.250 ml Output Urine Total 2550 ml General Appearance: Alert (Somnolent, off sedation), Oriented X3, Cooperative, No acute distress Lungs: Clear to auscultation, Normal air movement Chest/Breasts: Other (Bilateral rhonchi and crackles diffusely) Cardiovascular: Regular rate, Normal S1 Abdomen: Normal bowel sounds, Soft, No tenderness Extremities: No edema Medications Current Medications Medications Dose Ordered Sig/Sandra Route Start Time Stop Time Status Last Admin Dose Admin Ondansetron HCl 4 mg Q4HP PRN IV 07/02/24 23:15 07/13/24 20:21 4 MG Nitroglycerin 0.4 mg Q5MINP PRN SL 07/02/24 23:15 Acetaminophen 650 mg Q6HP PRN GT 07/03/24 12:30 Hold 07/04/24 03:53 650 MG Enoxaparin Sodium 40 mg DAILY SC 07/04/24 10:00 07/24/24 10:05 40 MG Morphine Sulfate 2 mg Q4HPRN PRN IV 07/10/24 11:00 07/23/24 04:38 2 MG Pantoprazole Sodium 40 mg DAILY IV 07/12/24 13:45 07/24/24 10:05 40 MG Propofol 100 ml @ 2.22 mls/hr Q24H IV 07/13/24 08:00 Cancel Sodium Chloride 10 ml QSHIFT@10,22 IV 07/14/24 22:00 07/24/24 10:05 10 ML Diagnostic Test (Pha) 1 strip ACHS 07/18/24 07:00 07/24/24 11:30 1 STRIP Insulin Human Regular HS SC 07/18/24 22:00 07/23/24 22:41 4 UNITS Insulin Human Regular AC SC 07/18/24 07:00 07/24/24 12:19 3 UNITS Dextrose 50 ml UD PRN IV 07/18/24 06:30 Acetaminophen/ Hydrocodone Bitart 1 tab Q6HPRN PRN PO 07/18/24 11:30 07/23/24 02:41 1 TAB Levalbuterol HCl 0.625 mg Q4HR PRN NEB 07/21/24 15:15 07/24/24 12:32 0.625 MG Budesonide 0.5 mg BID PRN NEB 07/21/24 15:30 Hold Enteral Nutritional Formula 240 ml TIDWM PO 07/21/24 18:00 07/24/24 12:20 240 ML Alprazolam 0.25 mg Q8HP PRN PO 07/21/24 16:45 Docusate Sodium 100 mg BID PO 07/21/24 22:00 07/24/24 10:05 100 MG Magnesium Oxide 400 mg DAILY PO 07/22/24 10:00 07/24/24 10:05 400 MG Zinc Sulfate 220 mg DAILY PO 07/22/24 10:00 07/24/24 10:05 220 MG Ascorbic Acid 500 mg BID PO 07/21/24 22:00 07/24/24 10:05 500 MG Midodrine 10 mg TID@0600,1200,1800 PO 07/22/24 13:45 07/24/24 12:13 10 MG Norepinephrine Bitartrate 250 ml @ 1.875 mls/ hr Q24H IV 07/22/24 18:30 07/23/24 01:09 7.5 MLS/HR Sodium Chloride 1,000 ml @ 60 mls/hr [id number] IV 07/23/24 07:30 07/23/24 23:40 60 MLS/HR Insulin Glargine 15 units BID@0700,2200 SC 07/23/24 22:00 07/24/24 06:31 15 UNITS Laboratory Results Laboratory Tests 07/24/24 03:10 Chemistry Test 07/24/24 03:10 Albumin 2.7 g/dL (3.2-4.8) L Calcium Level 8.7 mg/dL (8.7-10.4) Magnesium Level 1.7 mg/dL (1.6-2.6) Total Protein 6.0 g/dL (5.7-8.2) LFT Test 07/24/24 03:10 Alanine Aminotransferase (ALT) < 9 U/L (7-40) Alkaline Phosphatase 105 U/L (46-116) Aspartate Amino Transferase (AST) 14 U/L (13-40) Total Bilirubin 0.2 mg/dL (0.2-1.0) Urinalysis Test 07/02/24 23:08 Urine Color Light-yellow (Yellow) Urine Clarity Clear (Clear) Urine pH 5.0 (5.0-9.0) Urine Specific [place] 1.025 (1.001-1.035) Urine Protein Negative (Negative) Urine Ketones 4+ (Negative) H Urine Blood Negative /uL (Negative) Urine Nitrite Negative (Negative) Urine Bilirubin Negative (Negative) Urine Urobilinogen Normal mg/dL (Negative) Urine Leukocyte Esterase Negative /uL (Negative) Urine RBC <1 /hpf (0 - 3) Urine WBC 1 /hpf (0 - 3) Urine Squamous Epithelial Cells None seen /hpf (<5) Urine Bacteria None seen /hpf (None Seen) Urine Glucose 4+ mg/dL (Normal) H Microbiology Microbiology Date/Time Source Procedure Growth Status 07/19/24 14:47 Buttock Gram Stain - Final Resulted 07/19/24 14:47 Buttock Anaerobic Culture - Preliminary Resulted 07/19/24 14:47 Aerobic Culture - Final Enterococcus faecalis Resulted 07/13/24 16:02 Urine - [place] Urine Culture - Final Yeast, not Araceli albicans Complete 07/08/24 18:27 Bronchial Washings Gram Stain - Final Complete 07/08/24 18:27 Respiratory Culture - Final Staphylococcus aureus Stenotrophomonas maltophilia Complete 07/03/24 19:35 Blood Blood Culture - Final Staph hominis subsp homins Complete Labs and/or images reviewed: Labs reviewed by me Assessment/Plan Assessment/Plan DKA, resolved DM, uncontrolled Acute hypoxic respiratory failure s/p intubation on mechanical ventilator ZOYA Sepsis w septic shock Hypernatremia Fever B feet ulcers Thrombocytopenia due to sepsis, improved Sacral decub ulcer Insomnia PLAN: Continuing current management. Continuing IV antibiotic Bactrim and micafungin. Continuing with sliding scale insulin and Lantus. Continuing with free water. The patient had been off vasopressor however the blood pressure is very fluctuating so continuing to monitor. Continuing wound care for sacral wound Encouraged the patient to work with physical therapy to be out of bed and ambulate. The patient complained of insomnia, I will give the patient Ativan 0.5 mg q.h.s. p.r.n. for sleep. Plan discussed with: Patient, Spouse Date of Service: Jul 24, 2024 Billing Provider: JAKOB DAY MD Common Visit Codes: [id number] INP/OBS CARE(HIGH) JAKOB DAY MD Jul 24, 2024 14:07
[2024-07-24] MEDS ORDERED: LORazepam 0.5 MG TAB PO PRN (15:30)
--- NOTE | 2024-07-24 21:06 | DVHPN2 ---
Progress Note Date Seen: Jul 24, 2024 Medical Necessity Reason Pt with a Central, PICC or Fol: Yes The following are medically ne: Jesus Catheter Reason for jesus catheter: Strict I&O Objective vital signs Vital Sign Date Time Temp Pulse Resp B/P (MAP) Pulse Ox O2 Delivery O2 Flow Rate FiO2 07/24/24 20:15 89 20 111/59 (76) 94 07/24/24 20:00 Room Air* 0 21 07/24/24 17:00 98.1 98.1 Total Intake and Output 07/23/24 07/23/24 07/24/24 15:00 23:00 07:00 Intake Total 536.875 ml 643.125 ml 1241.250 ml Output Total 750 ml 1800 ml Balance 536.875 ml -106.875 ml -558.750 ml medications Current Medications Medications Dose Ordered Sig/Sandra Route Start Time Stop Time Status Last Admin Dose Admin Ondansetron HCl 4 mg Q4HP PRN IV 07/02/24 23:15 07/13/24 20:21 4 MG Nitroglycerin 0.4 mg Q5MINP PRN SL 07/02/24 23:15 Acetaminophen 650 mg Q6HP PRN GT 07/03/24 12:30 Hold 07/04/24 03:53 650 MG Enoxaparin Sodium 40 mg DAILY SC 07/04/24 10:00 07/24/24 10:05 40 MG Morphine Sulfate 2 mg Q4HPRN PRN IV 07/10/24 11:00 07/24/24 17:45 2 MG Pantoprazole Sodium 40 mg DAILY IV 07/12/24 13:45 07/24/24 10:05 40 MG Propofol 100 ml @ 2.22 mls/hr Q24H IV 07/13/24 08:00 Cancel Sodium Chloride 10 ml QSHIFT@10,22 IV 07/14/24 22:00 07/24/24 10:05 10 ML Diagnostic Test (Pha) 1 strip ACHS 07/18/24 07:00 07/24/24 17:17 1 STRIP Insulin Human Regular HS SC 07/18/24 22:00 07/23/24 22:41 4 UNITS Insulin Human Regular AC SC 07/18/24 07:00 07/24/24 17:31 9 UNITS Dextrose 50 ml UD PRN IV 07/18/24 06:30 Acetaminophen/ Hydrocodone Bitart 1 tab Q6HPRN PRN PO 07/18/24 11:30 07/23/24 02:41 1 TAB Levalbuterol HCl 0.625 mg Q4HR PRN NEB 07/21/24 15:15 07/24/24 12:32 0.625 MG Budesonide 0.5 mg BID PRN NEB 07/21/24 15:30 Hold Enteral Nutritional Formula 240 ml TIDWM PO 07/21/24 18:00 07/24/24 18:00 240 ML Alprazolam 0.25 mg Q8HP PRN PO 07/21/24 16:45 Docusate Sodium 100 mg BID PO 07/21/24 22:00 07/24/24 10:05 100 MG Magnesium Oxide 400 mg DAILY PO 07/22/24 10:00 07/24/24 10:05 400 MG Zinc Sulfate 220 mg DAILY PO 07/22/24 10:00 07/24/24 10:05 220 MG Ascorbic Acid 500 mg BID PO 07/21/24 22:00 07/24/24 10:05 500 MG Midodrine 10 mg TID@0600,1200,1800 PO 07/22/24 13:45 07/24/24 17:16 10 MG Norepinephrine Bitartrate 250 ml @ 1.875 mls/ hr Q24H IV 07/22/24 18:30 07/23/24 01:09 7.5 MLS/HR Sodium Chloride 1,000 ml @ 60 mls/hr [id number] IV 07/23/24 07:30 07/24/24 19:45 60 MLS/HR Insulin Glargine 15 units BID@0700,2200 SC 07/23/24 22:00 07/24/24 06:31 15 UNITS Lorazepam 1 mg QHSP PRN PO 07/24/24 15:30 laboratory and microbiology Laboratory Tests 07/24/24 03:10 Test 07/24/24 03:10 Range/Units Serum Glucose 209 H 74-106 mg/dL Microbiology Date/Time Source Procedure Growth Status 07/19/24 14:47 Buttock Gram Stain - Final Resulted 07/19/24 14:47 Buttock Anaerobic Culture - Preliminary Resulted 07/19/24 14:47 Aerobic Culture - Final Enterococcus faecalis Resulted 07/13/24 16:02 Urine - [place] Urine Culture - Final Yeast, not Araceli albicans Complete 07/08/24 18:27 Bronchial Washings Gram Stain - Final Complete 07/08/24 18:27 Respiratory Culture - Final Staphylococcus aureus Stenotrophomonas maltophilia Complete 07/03/24 19:35 Blood Blood Culture - Final Staph hominis subsp homins Complete Problem List/Assessment/Plan Problem List/Assessment/Plan AFEBRILE VSS LOW BACK WOUND HEALING NO COMPLICATIONS CONTINUE CLOSE OBSERVATION AND IV ABX LOCAL WOUND CARE INSTRUCTED Plan discussed with: Other Dietary Evaluation Review Comments: 1) If GI is preferred route consider Nepro @ 45 ml/hr goal rate as tolerated 2) If pt remains NPO >7 days consider TPN to meet at least 75% of estimated needs 3) Advance pt diet when medically feasible to a CCHO 60g, Renal diet modified per BODY AND FRAME TECHNICIAN recommendations 4) Continue current plan of care Expected Outcomes/Goals: 1. Pt will consume >75% of estimated needs within 2-3 days MARYAM CONTRERAS MD Jul 24, 2024 21:06
[2024-07-25] VITALS (50 sets, daily range): BP systolic 84–151; BP diastolic 21–86; PULSE 82–118; RESP 12–28; TEMP 97.7–99; O2SAT 90–100
[2024-07-25 03:37] LABS: Basophils # (auto) 0.1 10 ^3/uL (0-0.2); Eosinophils # (auto) 0.2 10 ^3/uL (0-0.8); Hemoglobin 9.8 g/dL (13.5-17.5); Lymphocytes # (auto) 1.3 10 ^3/uL (0.4-5.4); Lymphocytes % (auto) 17.6 % (10.0-50.0); Monocytes # (auto) 0.5 10 ^3/uL (0-1.3); Monocytes % (auto) 6.4 % (0.0-12.0)
[2024-07-25 03:39] LABS: Basophils % (auto) 1.3 % (0.0-2.0); Eosinophils % (auto) 2.9 % (0.0-7.0); Hematocrit 29.5 % (41.0-53.0); Mean Corpuscular Hemoglobin 29.2 pg (28.0-32.0); Mean Corpuscular Hgb Conc. 33.1 g/dL (32.0-36.0); Mean Corpuscular Volume 88.1 fL (80.0-100.0); Neutrophils # (auto) 5.3 10 ^3/uL (1.6-8.6); Neutrophils % (auto) 71.8 % (37.0-80.0); Nucleated Red Blood Cells % 0.1 %; Platelet Count (auto) 569 10^3/uL (140-450); Red Blood Cells 3.35 10^6/uL (4.5-5.90); Red Cell Distribution Width 13.2 % (11.8-14.3); White Blood Cell 7.3 10^3/uL (4.4-10.8)
[2024-07-25 03:52] LABS: Alanine Aminotransferase 12 U/L (7-40); Albumin 2.9 g/dL (3.2-4.8); Alkaline Phosphatase 108 U/L (46-116); Anion Gap 4 (5-15); Aspartate Aminotransferase 20 U/L (13-40); BUN/Creatinine Ratio 19.6 (10.0-20.0); Bilirubin, Total 0.3 mg/dL (0.2-1.0); Blood Urea Nitrogen 10 mg/dL (9-23); Calcium 8.8 mg/dL (8.7-10.4); Carbon Dioxide 26 mmol/L (20-31); Chloride 106 mmol/L (98-107); Glucose 87 mg/dL (74-106); Magnesium 1.8 mg/dL (1.6-2.6); Sodium 136 mmol/L (136-145); Total Protein 6.2 g/dL (5.7-8.2)
--- NOTE | 2024-07-25 12:11 | DVHPN2 ---
Progress Note Date Seen: Jul 25, 2024 Medical Necessity Reason Pt with a Central, PICC or Fol: Yes The following are medically ne: Jesus Catheter Reason for jesus catheter: Strict I&O Objective vital signs Vital Sign Date Time Temp Pulse Resp B/P (MAP) Pulse Ox O2 Delivery O2 Flow Rate FiO2 07/25/24 06:45 91 15 132/74 (93) 95 07/25/24 06:26 Room Air 0.0 07/25/24 06:25 21 07/25/24 04:00 97.7 97.7 Total Intake and Output 07/24/24 07/24/24 07/25/24 15:00 23:00 07:00 Intake Total 513.750 ml 935.00 ml 1040.61 ml Output Total 2000 ml 1500 ml Balance 513.750 ml -1065.00 ml -459.39 ml medications Current Medications Medications Dose Ordered Sig/Sandra Route Start Time Stop Time Status Last Admin Dose Admin Ondansetron HCl 4 mg Q4HP PRN IV 07/02/24 23:15 07/13/24 20:21 4 MG Nitroglycerin 0.4 mg Q5MINP PRN SL 07/02/24 23:15 Acetaminophen 650 mg Q6HP PRN GT 07/03/24 12:30 Hold 07/04/24 03:53 650 MG Enoxaparin Sodium 40 mg DAILY SC 07/04/24 10:00 07/25/24 09:56 40 MG Morphine Sulfate 2 mg Q4HPRN PRN IV 07/10/24 11:00 07/25/24 05:44 2 MG Pantoprazole Sodium 40 mg DAILY IV 07/12/24 13:45 07/25/24 09:55 40 MG Propofol 100 ml @ 2.22 mls/hr Q24H IV 07/13/24 08:00 Cancel Sodium Chloride 10 ml QSHIFT@10,22 IV 07/14/24 22:00 07/24/24 22:00 10 ML Diagnostic Test (Pha) 1 strip ACHS 07/18/24 07:00 07/25/24 06:25 1 STRIP Insulin Human Regular HS SC 07/18/24 22:00 07/24/24 22:25 3 UNITS Insulin Human Regular AC SC 07/18/24 07:00 07/24/24 17:31 9 UNITS Dextrose 50 ml UD PRN IV 07/18/24 06:30 Acetaminophen/ Hydrocodone Bitart 1 tab Q6HPRN PRN PO 07/18/24 11:30 07/25/24 08:18 1 TAB Levalbuterol HCl 0.625 mg Q4HR PRN NEB 07/21/24 15:15 07/25/24 06:22 0.625 MG Budesonide 0.5 mg BID PRN NEB 07/21/24 15:30 Hold Enteral Nutritional Formula 240 ml TIDWM PO 07/21/24 18:00 07/24/24 18:00 240 ML Alprazolam 0.25 mg Q8HP PRN PO 07/21/24 16:45 Docusate Sodium 100 mg BID PO 07/21/24 22:00 07/25/24 09:55 100 MG Magnesium Oxide 400 mg DAILY PO 07/22/24 10:00 07/25/24 09:55 400 MG Zinc Sulfate 220 mg DAILY PO 07/22/24 10:00 07/25/24 09:55 220 MG Ascorbic Acid 500 mg BID PO 07/21/24 22:00 07/25/24 09:55 500 MG Midodrine 10 mg TID@0600,1200,1800 PO 07/22/24 13:45 07/25/24 05:44 10 MG Norepinephrine Bitartrate 250 ml @ 1.875 mls/ hr Q24H IV 07/22/24 18:30 07/23/24 01:09 7.5 MLS/HR Sodium Chloride 1,000 ml @ 60 mls/hr [id number] IV 07/23/24 07:30 07/24/24 19:45 60 MLS/HR Insulin Glargine 15 units BID@0700,2200 SC 07/23/24 22:00 07/24/24 22:20 15 UNITS Lorazepam 1 mg QHSP PRN PO 07/24/24 15:30 laboratory and microbiology Laboratory Tests 07/25/24 03:16 Test 07/25/24 03:16 Range/Units Serum Glucose 87 # 74-106 mg/dL Microbiology Date/Time Source Procedure Growth Status 07/19/24 14:47 Buttock Gram Stain - Final Resulted 07/19/24 14:47 Buttock Anaerobic Culture - Preliminary Resulted 07/19/24 14:47 Aerobic Culture - Final Enterococcus faecalis Resulted 07/13/24 16:02 Urine - [place] Urine Culture - Final Yeast, not Araceli albicans Complete 07/08/24 18:27 Bronchial Washings Gram Stain - Final Complete 07/08/24 18:27 Respiratory Culture - Final Staphylococcus aureus Stenotrophomonas maltophilia Complete 07/03/24 19:35 Blood Blood Culture - Final Staph hominis subsp homins Complete Problem List/Assessment/Plan Problem List/Assessment/Plan AFEBRILE VSS LOW BACK WOUND HEALING DRESSING IN PLACE NO COMPLICATIONS CONTINUE CLOSE OBSERVATION AND IV ABX LOCAL WOUND CARE INSTRUCTED ONGOING Plan discussed with: Patient Dietary Evaluation Review Comments: 1) If GI is preferred route consider Nepro @ 45 ml/hr goal rate as tolerated 2) If pt remains NPO >7 days consider TPN to meet at least 75% of estimated needs 3) Advance pt diet when medically feasible to a CCHO 60g, Renal diet modified per ANIMAL ANATOMY TEACHER recommendations 4) Continue current plan of care Expected Outcomes/Goals: 1. Pt will consume >75% of estimated needs within 2-3 days MARYAM CONTRERAS MD Jul 25, 2024 12:11
--- NOTE | 2024-07-25 13:01 | DVHPN2 ---
Progress Note - Dictate Date Seen: Jul 25, 2024 Medical Necessity Reason Pt with a Central, PICC or Fol: Yes The following are medically ne: Jesus Catheter Reason for jesus catheter: Strict I&O Subjective Patient was seen and evaluated. at bedside. He is wake and responsive, alert and oriented x4. He reports intense pressure and pain in the rectal area. Wound care performed. jesus catheter in situ. Antibiotics history Zosyn 07/03 Unasyn 07/13 to 07/14 Cefepime 07/03 to 07/09 Levofloxacin 07/09 to 07/13 (4-5 days) Vancomycin 07/03 to 07/09 ( 6 days) IV Bactrim 07/13-07/23 IV micafungin 07/15 to on going Culture history 07/02 sputum culture grew Staphylococcus aureus (MSSA), Klebsiella pneumoniae ( Ramires sensitive)and Citrobacter 07/03 urine culture from Jesus grew E coli and Enterococcus faecalis 07/03 blood culture grew Staph hominis MRSA nasal screen negative 07/05 wound culture from foot grew MSSA and Streptococcus group 07/08: Staphylococcus aureus and stenotrophomonas maltophilia 07/19 wound culture is Enterococcus faecalis vital signs Vital Sign Date Time Temp Pulse Resp B/P (MAP) Pulse Ox O2 Delivery O2 Flow Rate FiO2 07/25/24 06:45 91 15 132/74 (93) 95 07/25/24 06:26 Room Air 0.0 07/25/24 06:25 21 07/25/24 04:00 97.7 97.7 Total Intake and Output 07/24/24 07/24/24 07/25/24 15:00 23:00 07:00 Intake Total 513.750 ml 935.00 ml 1040.61 ml Output Total 2000 ml 1500 ml Balance 513.750 ml -1065.00 ml -459.39 ml medications Current Medications Medications Dose Ordered Sig/Sandra Route Start Time Stop Time Status Last Admin Dose Admin Ondansetron HCl 4 mg Q4HP PRN IV 07/02/24 23:15 07/13/24 20:21 4 MG Nitroglycerin 0.4 mg Q5MINP PRN SL 07/02/24 23:15 Acetaminophen 650 mg Q6HP PRN GT 07/03/24 12:30 Hold 07/04/24 03:53 650 MG Enoxaparin Sodium 40 mg DAILY SC 07/04/24 10:00 07/25/24 09:56 40 MG Morphine Sulfate 2 mg Q4HPRN PRN IV 07/10/24 11:00 07/25/24 05:44 2 MG Pantoprazole Sodium 40 mg DAILY IV 07/12/24 13:45 07/25/24 09:55 40 MG Propofol 100 ml @ 2.22 mls/hr Q24H IV 07/13/24 08:00 Cancel Sodium Chloride 10 ml QSHIFT@ IV 07/14/24 22:00 07/24/24 22:00 10 ML Diagnostic Test (Pha) 1 strip ACHS 07/18/24 07:00 07/25/24 06:25 1 STRIP Insulin Human Regular HS SC 07/18/24 22:00 07/24/24 22:25 3 UNITS Insulin Human Regular AC SC 07/18/24 07:00 07/24/24 17:31 9 UNITS Dextrose 50 ml UD PRN IV 07/18/24 06:30 Acetaminophen/ Hydrocodone Bitart 1 tab Q6HPRN PRN PO 07/18/24 11:30 07/25/24 08:18 1 TAB Levalbuterol HCl 0.625 mg Q4HR PRN NEB 07/21/24 15:15 07/25/24 06:22 0.625 MG Budesonide 0.5 mg BID PRN NEB 07/21/24 15:30 Hold Enteral Nutritional Formula 240 ml TIDWM PO 07/21/24 18:00 07/24/24 18:00 240 ML Alprazolam 0.25 mg Q8HP PRN PO 07/21/24 16:45 Docusate Sodium 100 mg BID PO 07/21/24 22:00 07/25/24 09:55 100 MG Magnesium Oxide 400 mg DAILY PO 07/22/24 10:00 07/25/24 09:55 400 MG Zinc Sulfate 220 mg DAILY PO 07/22/24 10:00 07/25/24 09:55 220 MG Ascorbic Acid 500 mg BID PO 07/21/24 22:00 07/25/24 09:55 500 MG Midodrine 10 mg TID@0600,1200,1800 PO 07/22/24 13:45 07/25/24 05:44 10 MG Norepinephrine Bitartrate 250 ml @ 1.875 mls/ hr Q24H IV 07/22/24 18:30 07/23/24 01:09 7.5 MLS/HR Sodium Chloride 1,000 ml @ 60 mls/hr [id number] IV 07/23/24 07:30 07/24/24 19:45 60 MLS/HR Insulin Glargine 15 units BID@0700,2200 SC 07/23/24 22:00 07/24/24 22:20 15 UNITS Lorazepam 1 mg QHSP PRN PO 07/24/24 15:30 objective General alert and oriented HEENT: Atraumatic Neck: No swelling Lungs: decreased breath sounds Cardiovascular: S2 heard no murmur Abdomen: Soft nontender, no organomegaly, nondistended Neuro: Alert and oriented, generalized weakness. skin multiple wounds : has decub and wounds also on feet Psych: Normal mood and affect laboratory and microbiology Laboratory Tests 07/25/24 03:16 Test 07/25/24 03:16 Range/Units Serum Glucose 87 # 74-106 mg/dL Assessment/Plan Patient is a 49 [id number] with Hyponatremia due to BActrim ( antibiotics side effects) Sepsis with septic shock : improving Hypotension Hyperkalemia ( due to Bactrim) Decub ulcers MSSA pneumonia DKA resolved acute hypoxic respiratory failure Recommendations DC Bactrim, hyponatremia and hyperkalemia possibly secondary to Bactrim; imprved Patient has received prolonged course of antibiotics with vancomycin followed by levofloxacin and Bactrim hence more than adequately treated for MSSA pneumonia off IV micafungin, urine is colonized secondary to Jesus catheter Continue to monitor Patient has pulmonary edema, consider gentle diuresis Continue wound care for sacral decubitus ulcer, frequent turn and offloading Patient is still on pressors, however the requirement has come down We will continue to follow Total critical time more than 35 minutes spent during the encounter in coordinating care, reviewing document and managing Plan discussed with physician Dietary Evaluation Review Comments: 1) If GI is preferred route consider Nepro @ 45 ml/hr goal rate as tolerated 2) If pt remains NPO >7 days consider TPN to meet at least 75% of estimated needs 3) Advance pt diet when medically feasible to a CCHO 60g, Renal diet modified per COST ACCOUNTING ANALYST recommendations 4) Continue current plan of care Expected Outcomes/Goals: 1. Pt will consume >75% of estimated needs within 2-3 days Plan discussed with: CIRO Gonzales MD Jul 25, 2024 13:01
--- NOTE | 2024-07-25 18:22 | DVHPN2 ---
Progress Note - Dictate Date Seen: Jul 25, 2024 Medical Necessity Reason Pt with a Central, PICC or Fol: Yes The following are medically ne: Jesus Catheter Reason for jesus catheter: Strict I&O Subjective Patient seen and examined at bedside. On room air. Overnight events reviewed. vital signs Vital Sign Date Time Temp Pulse Resp B/P (MAP) Pulse Ox O2 Delivery O2 Flow Rate FiO2 07/25/24 18:00 20 97 Room Air* 0 21 07/25/24 18:00 92 07/25/24 17:12 135/82 07/25/24 04:00 97.7 97.7 Total Intake and Output 07/24/24 07/24/24 07/25/24 15:00 23:00 07:00 Intake Total 513.750 ml 935.00 ml 1040.61 ml Output Total 2000 ml 1500 ml Balance 513.750 ml -1065.00 ml -459.39 ml medications Current Medications Medications Dose Ordered Sig/Sandra Route Start Time Stop Time Status Last Admin Dose Admin Ondansetron HCl 4 mg Q4HP PRN IV 07/02/24 23:15 07/13/24 20:21 4 MG Nitroglycerin 0.4 mg Q5MINP PRN SL 07/02/24 23:15 Acetaminophen 650 mg Q6HP PRN GT 07/03/24 12:30 Hold 07/04/24 03:53 650 MG Enoxaparin Sodium 40 mg DAILY SC 07/04/24 10:00 07/25/24 09:56 40 MG Morphine Sulfate 2 mg Q4HPRN PRN IV 07/10/24 11:00 07/25/24 17:12 2 MG Pantoprazole Sodium 40 mg DAILY IV 07/12/24 13:45 07/25/24 09:55 40 MG Propofol 100 ml @ 2.22 mls/hr Q24H IV 07/13/24 08:00 Cancel Sodium Chloride 10 ml QSHIFT@10,22 IV 07/14/24 22:00 07/25/24 10:00 10 ML Diagnostic Test (Pha) 1 strip ACHS 07/18/24 07:00 07/25/24 11:30 1 STRIP Insulin Human Regular HS SC 07/18/24 22:00 07/24/24 22:25 3 UNITS Insulin Human Regular AC SC 07/18/24 07:00 07/25/24 11:30 6 UNITS Dextrose 50 ml UD PRN IV 07/18/24 06:30 Acetaminophen/ Hydrocodone Bitart 1 tab Q6HPRN PRN PO 07/18/24 11:30 07/25/24 08:18 1 TAB Levalbuterol HCl 0.625 mg Q4HR PRN NEB 07/21/24 15:15 07/25/24 06:22 0.625 MG Budesonide 0.5 mg BID PRN NEB 07/21/24 15:30 Hold Enteral Nutritional Formula 240 ml TIDWM PO 07/21/24 18:00 07/24/24 18:00 240 ML Alprazolam 0.25 mg Q8HP PRN PO 07/21/24 16:45 Docusate Sodium 100 mg BID PO 07/21/24 22:00 07/25/24 09:55 100 MG Magnesium Oxide 400 mg DAILY PO 07/22/24 10:00 07/25/24 09:55 400 MG Zinc Sulfate 220 mg DAILY PO 07/22/24 10:00 07/25/24 09:55 220 MG Ascorbic Acid 500 mg BID PO 07/21/24 22:00 07/25/24 09:55 500 MG Midodrine 10 mg TID@0600,1200,1800 PO 07/22/24 13:45 07/25/24 12:00 10 MG Norepinephrine Bitartrate 250 ml @ 1.875 mls/ hr Q24H IV 07/22/24 18:30 07/23/24 01:09 7.5 MLS/HR Sodium Chloride 1,000 ml @ 60 mls/hr [id number] IV 07/23/24 07:30 07/24/24 19:45 60 MLS/HR Insulin Glargine 15 units BID@0700,2200 SC 07/23/24 22:00 07/24/24 22:20 15 UNITS Lorazepam 1 mg QHSP PRN PO 07/24/24 15:30 Temazepam 30 mg HSPRN PRN PO 07/25/24 13:45 objective Gen.: Patient lying in bed in no apparent distress. Breathing on room air. Head: Normocephalic, atraumatic. Eyes: EOMI/PERRLA. Ears: Normal hearing. Normal anatomy. Neck/trachea: Trachea midline, supple. Nose: Normal external anatomy. Mouth: Moist mucous membranes. Chest: Decreased air entry bilaterally. No wheezing or rhonchi. Cardiovascular: Positive S1, positive S2. Regular rate and rhythm. Abdomen: Positive bowel sounds in all 4 quadrants. Soft, non-tender, non- distended. : Deferred. Rectal: Deferred. Skin: Warm, dry. Intact. Extremities: 2+ radial pulses bilaterally. No lower extremity edema. Neuro: Awake, alert, oriented x3. No gross motor or sensory deficits. Cranial nerves II through XII intact. Gait not assessed. laboratory and microbiology Laboratory Tests 07/25/24 03:16 Test 07/25/24 03:16 Range/Units Serum Glucose 87 # 74-106 mg/dL Assessment/Plan Impression: Acute hypoxic respiratory failure, improving Diabetic ketoacidosis, improved Acute kidney injury Cachexia with a BMI of 18.8 Pseudohyponatremia due to hyperglycemia Buttock wound: Enterococcus faecalis UTI: Yeast. Pneumonia, Stenotrophomonas maltophilia and Staphylococcus aureus Events: Remains on room air. No respiratory distress. Patient is off Levophed since 6:30 AM. Continue bronchodilators Continue midodrine Glycemic control Wound care Labs and imaging reviewed. Rest of plan as noted below. Plan: On room air IS Bronchodilators Pulmicort BID Antibiotics Pressors as necessary for hemodynamic support. Titrate to keep SBP above 90 mmHg. On midodrine Completed micafungin course. Maintain euvolemia. Monitor renal function Monitor electrolytes, supplement as necessary Potassium supplementation Pain control/anxiolytic PRN Avoid oversedation Nutritional supplementation with Glucerna. Accu-Cheks, ISS Labs and imaging reviewed GI/DVT prophylaxis. Prognosis: Guarded given multiple comorbidities. Condition: Critical Rest of plan per hospitalist and other consultants. A total of 35 minutes of critical care time was spent reviewing the patient record, examining the patient, making a diagnostic and therapeutic plan, discussing this plan with the medical personnel, following up on diagnostic studies and following the patient for clinical stability excluding any and all procedures. At least 50% of this time was spent in direct, [id number] contact. Thank you Dr Saucedo for allowing me to participate in this patient's care. Further recommendations will depend on patient's clinical course. Please do not hesitate to contact me if you have any questions or concerns. This medical document was created using an electronic medical record system with Dragon computerized dictation system. Although this document has been carefully reviewed, there may still be some phonetic and typographical errors. These areas are purely typographical due to imperfections of the software programs, and do not reflect any compromise in the patient's medical care. Dietary Evaluation Review Comments: 1) If GI is preferred route consider Nepro @ 45 ml/hr goal rate as tolerated 2) If pt remains NPO >7 days consider TPN to meet at least 75% of estimated needs 3) Advance pt diet when medically feasible to a CCHO 60g, Renal diet modified per DIESEL STATIONARY ENGINEER recommendations 4) Continue current plan of care Expected Outcomes/Goals: 1. Pt will consume >75% of estimated needs within 2-3 days Plan discussed with: Patient, Other (RN Yina) Critical Care Time(min): 35 NADER ALLEN MD Jul 25, 2024 18:21
--- NOTE | 2024-07-25 22:53 | DVHPN2 ---
Subjective The patient is seen and examined at bedside. The patient able to sleep a little bit but not a lot. Reviewed: Care Plan, H&P, Labs, Medications, Previous Orders, Radiology Changes from previous H/P or p: No Changes Eyes: No Pain, No Vision change, No Conjunctivae inflammation, No Eyelid inflammation, No Other, No Redness ENT: No Ear pain, No Ear discharge, No Nose pain, No Nose discharge, No Nose congestion, No Mouth pain, No Mouth swelling, No Throat pain, No Throat swelling, No Other Cardiovascular: No Chest Pain, No Palpitations, No Orthopnea, No Paroxysmal Noc. Dyspnea, No Edema, No Lt Headedness, No Other Respiratory: No Cough, No Dry, No Shortness of breath, No SOB with excertion, No Wheezing, No Hemoptysis, No Pleuritic Pain, No Sputum, No Other Gastrointestinal: No Nausea, No Vomiting, No Abdominal Pain, No Diarrhea, No Constipation, No Melena, No Hematochezia, No Other Genitourinary: No Dysuria, No Frequency, No Incontinence, No Hematuria, No Retention, No Other Musculoskeletal: No other, No neck pain, No shoulder pain, No arm pain, No back pain, No hand pain, No leg pain, No foot pain Skin: No Rash, No Lesions, No Jaundice, No Bruising, No Other Objective Vitals Vital Signs Date Time Temp Pulse Resp B/P (MAP) Pulse Ox O2 Delivery O2 Flow Rate FiO2 07/25/24 22:00 20 96 Room Air* 0 21 07/25/24 22:00 94 135/82 (99) 07/25/24 20:00 98.3 98.3 Intake/Output Intake and Output 07/25/24 07:00 Intake Total 2489.360 ml Output Total 3500 ml Balance -1010.640 ml Intake Oral 1100 ml IV Total 1389.360 ml Output Urine Total 3500 ml # Bowel Movements 4 General Appearance: Alert (Somnolent, off sedation), Oriented X3, Cooperative, No acute distress Lungs: Clear to auscultation, Normal air movement Chest/Breasts: Other (Bilateral rhonchi and crackles diffusely) Cardiovascular: Regular rate, Normal S1 Abdomen: Normal bowel sounds, Soft, No tenderness Extremities: No edema Medications Current Medications Medications Dose Ordered Sig/Sandra Route Start Time Stop Time Status Last Admin Dose Admin Ondansetron HCl 4 mg Q4HP PRN IV 07/02/24 23:15 07/13/24 20:21 4 MG Nitroglycerin 0.4 mg Q5MINP PRN SL 07/02/24 23:15 Acetaminophen 650 mg Q6HP PRN GT 07/03/24 12:30 Hold 07/04/24 03:53 650 MG Enoxaparin Sodium 40 mg DAILY SC 07/04/24 10:00 07/25/24 09:56 40 MG Morphine Sulfate 2 mg Q4HPRN PRN IV 07/10/24 11:00 07/25/24 20:22 2 MG Pantoprazole Sodium 40 mg DAILY IV 07/12/24 13:45 07/25/24 09:55 40 MG Propofol 100 ml @ 2.22 mls/hr Q24H IV 07/13/24 08:00 Cancel Sodium Chloride 10 ml QSHIFT@10,22 IV 07/14/24 22:00 07/25/24 21:34 10 ML Diagnostic Test (Pha) 1 strip ACHS 07/18/24 07:00 07/25/24 21:34 1 STRIP Insulin Human Regular HS SC 07/18/24 22:00 07/25/24 21:48 3 UNITS Insulin Human Regular AC SC 07/18/24 07:00 07/25/24 11:30 6 UNITS Dextrose 50 ml UD PRN IV 07/18/24 06:30 Acetaminophen/ Hydrocodone Bitart 1 tab Q6HPRN PRN PO 07/18/24 11:30 07/25/24 08:18 1 TAB Levalbuterol HCl 0.625 mg Q4HR PRN NEB 07/21/24 15:15 07/25/24 19:26 0.625 MG Budesonide 0.5 mg BID PRN NEB 07/21/24 15:30 Hold Enteral Nutritional Formula 240 ml TIDWM PO 07/21/24 18:00 07/25/24 18:00 240 ML Alprazolam 0.25 mg Q8HP PRN PO 07/21/24 16:45 Docusate Sodium 100 mg BID PO 07/21/24 22:00 07/25/24 21:34 100 MG Magnesium Oxide 400 mg DAILY PO 07/22/24 10:00 07/25/24 09:55 400 MG Zinc Sulfate 220 mg DAILY PO 07/22/24 10:00 07/25/24 09:55 220 MG Ascorbic Acid 500 mg BID PO 07/21/24 22:00 07/25/24 21:34 500 MG Midodrine 10 mg TID@0600,1200,1800 PO 07/22/24 13:45 07/25/24 18:00 10 MG Norepinephrine Bitartrate 250 ml @ 1.875 mls/ hr Q24H IV 07/22/24 18:30 07/23/24 01:09 7.5 MLS/HR Sodium Chloride 1,000 ml @ 60 mls/hr [id number] IV 07/23/24 07:30 07/24/24 19:45 60 MLS/HR Insulin Glargine 15 units BID@0700,2200 SC 07/23/24 22:00 07/25/24 21:47 15 UNITS Lorazepam 1 mg QHSP PRN PO 07/24/24 15:30 Temazepam 30 mg HSPRN PRN PO 07/25/24 13:45 Laboratory Results Laboratory Tests 07/25/24 03:16 Chemistry Test 07/25/24 03:16 Albumin 2.9 g/dL (3.2-4.8) L Calcium Level 8.8 mg/dL (8.7-10.4) Magnesium Level 1.8 mg/dL (1.6-2.6) Total Protein 6.2 g/dL (5.7-8.2) LFT Test 07/25/24 03:16 Alanine Aminotransferase (ALT) 12 U/L (7-40) Alkaline Phosphatase 108 U/L (46-116) Aspartate Amino Transferase (AST) 20 U/L (13-40) Total Bilirubin 0.3 mg/dL (0.2-1.0) Urinalysis Test 07/02/24 23:08 Urine Color Light-yellow (Yellow) Urine Clarity Clear (Clear) Urine pH 5.0 (5.0-9.0) Urine Specific [place] 1.025 (1.001-1.035) Urine Protein Negative (Negative) Urine Ketones 4+ (Negative) H Urine Blood Negative /uL (Negative) Urine Nitrite Negative (Negative) Urine Bilirubin Negative (Negative) Urine Urobilinogen Normal mg/dL (Negative) Urine Leukocyte Esterase Negative /uL (Negative) Urine RBC <1 /hpf (0 - 3) Urine WBC 1 /hpf (0 - 3) Urine Squamous Epithelial Cells None seen /hpf (<5) Urine Bacteria None seen /hpf (None Seen) Urine Glucose 4+ mg/dL (Normal) H Microbiology Microbiology Date/Time Source Procedure Growth Status 07/19/24 14:47 Buttock Gram Stain - Final Complete 07/19/24 14:47 Buttock Anaerobic Culture - Final Complete 07/19/24 14:47 Aerobic Culture - Final Enterococcus faecalis Complete 07/13/24 16:02 Urine - [place] Urine Culture - Final Yeast, not Araceli albicans Complete 07/08/24 18:27 Bronchial Washings Gram Stain - Final Complete 07/08/24 18:27 Respiratory Culture - Final Staphylococcus aureus Stenotrophomonas maltophilia Complete 07/03/24 19:35 Blood Blood Culture - Final Staph hominis subsp homins Complete Labs and/or images reviewed: Labs reviewed by me Assessment/Plan Assessment/Plan DKA, resolved DM, uncontrolled Acute hypoxic respiratory failure s/p intubation on mechanical ventilator ZOYA Sepsis w septic shock Hypernatremia Fever B feet ulcers Thrombocytopenia due to sepsis, improved Sacral decub ulcer Insomnia PLAN: Continuing current management. Continuing IV antibiotic Bactrim and micafungin. Continuing with sliding scale insulin and Lantus. Continuing with free water. The patient had been off vasopressor however the blood pressure is very fluctuating so continuing to monitor. Continuing wound care for sacral wound Encouraged the patient to work with physical therapy to be out of bed and ambulate. I will give the patient Restoril 15 mg p.o. q.h.s. for sleep Plan discussed with: Patient My Orders Orders - JAKOB DAY MD Procedure Category Date Status Time Temazepam (Restoril) PHA 07/25/24 In Process 13:45 Date of Service: Jul 25, 2024 Billing Provider: JAKOB DAY MD Common Visit Codes: [id number] INP/OBS CARE(HIGH) JAKOB DAY MD Jul 25, 2024 22:53
[2024-07-26] VITALS (17 sets, daily range): BP systolic 79–146; BP diastolic 39–73; PULSE 74–97; RESP 14–25; TEMP 97.2–98.3; O2SAT 93–100
--- NOTE | 2024-07-26 13:06 | DVHPN2 ---
Progress Note - Dictate Date Seen: Jul 26, 2024 Medical Necessity Reason Pt with a Central, PICC or Fol: Yes The following are medically ne: Jesus Catheter Reason for jesus catheter: Strict I&O Subjective Patient was seen and evaluated. at bedside. He is wake and responsive, alert and oriented x4. transfer to [facility] jesus catheter in situ. IV access to L forearm was discontinued. pt has a 3L PICC line; 20G catheter was removed and intact, no s/s of phlebitis or infiltration noted. Antibiotics history Zosyn 07/03 Unasyn 07/13 to 07/14 Cefepime 07/03 to 07/09 Levofloxacin 07/09 to 07/13 (4-5 days) Vancomycin 07/03 to 07/09 ( 6 days) IV Bactrim 07/13-07/23 IV micafungin 07/15 to 07/23 Culture history 07/02 sputum culture grew Staphylococcus aureus (MSSA), Klebsiella pneumoniae ( Ramires sensitive)and Citrobacter 07/03 urine culture from Jesus grew E coli and Enterococcus faecalis 07/03 blood culture grew Staph hominis MRSA nasal screen negative 07/05 wound culture from foot grew MSSA and Streptococcus group 07/08: Staphylococcus aureus and stenotrophomonas maltophilia 07/19 wound culture is Enterococcus faecalis vital signs Vital Sign Date Time Temp Pulse Resp B/P (MAP) Pulse Ox O2 Delivery O2 Flow Rate FiO2 07/26/24 09:04 98.0 81 16 101/58 (72) 98 98.0 07/26/24 08:55 Nasal Cannula 2.0 07/26/24 08:55 28 Total Intake and Output 07/25/24 07/25/24 07/26/24 15:00 23:00 07:00 Intake Total 240 ml 1055 ml 420 ml Output Total 1650 ml 1200 ml Balance 240 ml -595 ml -780 ml medications Current Medications Medications Dose Ordered Sig/Sandra Route Start Time Stop Time Status Last Admin Dose Admin Ondansetron HCl 4 mg Q4HP PRN IV 07/02/24 23:15 07/13/24 20:21 4 MG Nitroglycerin 0.4 mg Q5MINP PRN SL 07/02/24 23:15 Acetaminophen 650 mg Q6HP PRN GT 07/03/24 12:30 Hold 07/04/24 03:53 650 MG Enoxaparin Sodium 40 mg DAILY SC 07/04/24 10:00 07/26/24 09:57 40 MG Morphine Sulfate 2 mg Q4HPRN PRN IV 07/10/24 11:00 07/25/24 20:22 2 MG Pantoprazole Sodium 40 mg DAILY IV 07/12/24 13:45 07/26/24 09:57 40 MG Propofol 100 ml @ 2.22 mls/hr Q24H IV 07/13/24 08:00 Cancel Sodium Chloride 10 ml QSHIFT@10,22 IV 07/14/24 22:00 07/26/24 09:57 10 ML Diagnostic Test (Pha) 1 strip ACHS 07/18/24 07:00 07/26/24 11:16 1 STRIP Insulin Human Regular HS SC 07/18/24 22:00 07/25/24 21:48 3 UNITS Insulin Human Regular AC SC 07/18/24 07:00 07/26/24 11:58 2 UNITS Dextrose 50 ml UD PRN IV 07/18/24 06:30 Acetaminophen/ Hydrocodone Bitart 1 tab Q6HPRN PRN PO 07/18/24 11:30 07/26/24 11:15 1 TAB Levalbuterol HCl 0.625 mg Q4HR PRN NEB 07/21/24 15:15 07/25/24 19:26 0.625 MG Budesonide 0.5 mg BID PRN NEB 07/21/24 15:30 Hold Enteral Nutritional Formula 240 ml TIDWM PO 07/21/24 18:00 07/26/24 11:59 240 ML Alprazolam 0.25 mg Q8HP PRN PO 07/21/24 16:45 Docusate Sodium 100 mg BID PO 07/21/24 22:00 07/25/24 21:34 100 MG Magnesium Oxide 400 mg DAILY PO 07/22/24 10:00 07/26/24 09:57 400 MG Zinc Sulfate 220 mg DAILY PO 07/22/24 10:00 07/26/24 09:57 220 MG Ascorbic Acid 500 mg BID PO 07/21/24 22:00 07/26/24 09:57 500 MG Midodrine 10 mg TID@0600,1200,1800 PO 07/22/24 13:45 07/26/24 11:56 10 MG Sodium Chloride 1,000 ml @ 60 mls/hr [id number] IV 07/23/24 07:30 07/26/24 06:21 60 MLS/HR Insulin Glargine 15 units BID@0700,2200 SC 07/23/24 22:00 07/26/24 06:18 15 UNITS Lorazepam 1 mg QHSP PRN PO 07/24/24 15:30 Temazepam 30 mg HSPRN PRN PO 07/25/24 13:45 objective General alert and oriented HEENT: Atraumatic Neck: No swelling Lungs: decreased breath sounds Cardiovascular: S2 heard no murmur Abdomen: Soft nontender, no organomegaly, nondistended Neuro: Alert and oriented, generalized weakness. skin multiple wounds : has decub and wounds also on feet Psych: Normal mood and affect laboratory and microbiology Laboratory Tests 07/25/24 03:16 Test 07/25/24 03:16 Range/Units Serum Glucose 87 # 74-106 mg/dL Assessment/Plan Patient is a 49 [id number] with Hyponatremia due to BActrim ( antibiotics side effects) Sepsis with septic shock : improving Hypotension Hyperkalemia ( due to Bactrim) Decub ulcers MSSA pneumonia DKA resolved acute hypoxic respiratory failure Recommendations off Bactrim, hyponatremia and hyperkalemia possibly secondary to Bactrim; improved Patient has received prolonged course of antibiotics with vancomycin followed by levofloxacin and Bactrim hence more than adequately treated for MSSA pneumonia off IV micafungin, urine is colonized secondary to Jesus catheter Continue to monitor Patient has pulmonary edema, consider gentle diuresis Continue wound care for sacral decubitus ulcer, frequent turn and offloading off pressor transferred to floor thank you for opportunity to co manage the patient. Dietary Evaluation Review Comments: 1) If GI is preferred route consider Nepro @ 45 ml/hr goal rate as tolerated 2) If pt remains NPO >7 days consider TPN to meet at least 75% of estimated needs 3) Advance pt diet when medically feasible to a CCHO 60g, Renal diet modified per W[employer] PUR[employer]IER OPERATOR recommendations 4) Continue current plan of care Expected Outcomes/Goals: 1. Pt will consume >75% of estimated needs within 2-3 days Plan discussed with: CIRO Gonzales MD Jul 26, 2024 13:06
--- NOTE | 2024-07-26 15:05 | DVHPN2 ---
Subjective Doing well He is still very weak however and dizzy when he ambulate He is on 2 L nasal cannula Blood pressure is soft Changes from previous H/P or p: Changes Eyes: No Pain, No Vision change, No Conjunctivae inflammation, No Eyelid inflammation, No Other, No Redness ENT: No Ear pain, No Ear discharge, No Nose pain, No Nose discharge, No Nose congestion, No Mouth pain, No Mouth swelling, No Throat pain, No Throat swelling, No Other Cardiovascular: No Chest Pain, No Palpitations, No Orthopnea, No Paroxysmal Noc. Dyspnea, No Edema, No Lt Headedness, No Other Respiratory: No Cough, No Dry, No Shortness of breath, No SOB with excertion, No Wheezing, No Hemoptysis, No Pleuritic Pain, No Sputum, No Other Gastrointestinal: No Nausea, No Vomiting, No Abdominal Pain, No Diarrhea, No Constipation, No Melena, No Hematochezia, No Other Genitourinary: No Dysuria, No Frequency, No Incontinence, No Hematuria, No Retention, No Other Musculoskeletal: No other, No neck pain, No shoulder pain, No arm pain, No back pain, No hand pain, No leg pain, No foot pain Skin: No Rash, No Lesions, No Jaundice, No Bruising, No Other Objective Vitals Vital Signs Date Time Temp Pulse Resp B/P (MAP) Pulse Ox O2 Delivery O2 Flow Rate FiO2 07/26/24 13:00 98.3 92 18 102/61 (75) 98 98.3 07/26/24 08:55 Nasal Cannula 2.0 07/26/24 08:55 28 Intake/Output Intake and Output 07/26/24 07:00 Intake Total 1715 ml Output Total 2850 ml Balance -1135 ml Intake Oral 575 ml IV Total 1140 ml Output Urine Total 2850 ml # Bowel Movements 2 General Appearance: Alert (Somnolent, off sedation), Oriented X3, Cooperative, No acute distress Lungs: Clear to auscultation, Normal air movement Chest/Breasts: Other (Bilateral rhonchi and crackles diffusely) Cardiovascular: Regular rate, Normal S1 Abdomen: Normal bowel sounds, Soft, No tenderness Extremities: No edema Medications Current Medications Medications Dose Ordered Sig/Sandra Route Start Time Stop Time Status Last Admin Dose Admin Ondansetron HCl 4 mg Q4HP PRN IV 07/02/24 23:15 07/13/24 20:21 4 MG Nitroglycerin 0.4 mg Q5MINP PRN SL 07/02/24 23:15 Acetaminophen 650 mg Q6HP PRN GT 07/03/24 12:30 Hold 07/04/24 03:53 650 MG Enoxaparin Sodium 40 mg DAILY SC 07/04/24 10:00 07/26/24 09:57 40 MG Morphine Sulfate 2 mg Q4HPRN PRN IV 07/10/24 11:00 07/25/24 20:22 2 MG Pantoprazole Sodium 40 mg DAILY IV 07/12/24 13:45 07/26/24 09:57 40 MG Propofol 100 ml @ 2.22 mls/hr Q24H IV 07/13/24 08:00 Cancel Sodium Chloride 10 ml QSHIFT@10,22 IV 07/14/24 22:00 07/26/24 09:57 10 ML Diagnostic Test (Pha) 1 strip ACHS 07/18/24 07:00 07/26/24 11:16 1 STRIP Insulin Human Regular HS SC 07/18/24 22:00 07/25/24 21:48 3 UNITS Insulin Human Regular AC SC 07/18/24 07:00 07/26/24 11:58 2 UNITS Dextrose 50 ml UD PRN IV 07/18/24 06:30 Acetaminophen/ Hydrocodone Bitart 1 tab Q6HPRN PRN PO 07/18/24 11:30 07/26/24 11:15 1 TAB Levalbuterol HCl 0.625 mg Q4HR PRN NEB 07/21/24 15:15 07/25/24 19:26 0.625 MG Budesonide 0.5 mg BID PRN NEB 07/21/24 15:30 Hold Enteral Nutritional Formula 240 ml TIDWM PO 07/21/24 18:00 07/26/24 11:59 240 ML Alprazolam 0.25 mg Q8HP PRN PO 07/21/24 16:45 Docusate Sodium 100 mg BID PO 07/21/24 22:00 07/25/24 21:34 100 MG Magnesium Oxide 400 mg DAILY PO 07/22/24 10:00 07/26/24 09:57 400 MG Zinc Sulfate 220 mg DAILY PO 07/22/24 10:00 07/26/24 09:57 220 MG Ascorbic Acid 500 mg BID PO 07/21/24 22:00 07/26/24 09:57 500 MG Midodrine 10 mg TID@0600,1200,1800 PO 07/22/24 13:45 07/26/24 11:56 10 MG Sodium Chloride 1,000 ml @ 60 mls/hr [id number] IV 07/23/24 07:30 07/26/24 06:21 60 MLS/HR Insulin Glargine 15 units BID@0700,2200 SC 07/23/24 22:00 07/26/24 06:18 15 UNITS Lorazepam 1 mg QHSP PRN PO 07/24/24 15:30 Temazepam 30 mg HSPRN PRN PO 07/25/24 13:45 Laboratory Results Laboratory Tests 07/25/24 03:16 Urinalysis Test 07/02/24 23:08 Urine Color Light-yellow (Yellow) Urine Clarity Clear (Clear) Urine pH 5.0 (5.0-9.0) Urine Specific [place] 1.025 (1.001-1.035) Urine Protein Negative (Negative) Urine Ketones 4+ (Negative) H Urine Blood Negative /uL (Negative) Urine Nitrite Negative (Negative) Urine Bilirubin Negative (Negative) Urine Urobilinogen Normal mg/dL (Negative) Urine Leukocyte Esterase Negative /uL (Negative) Urine RBC <1 /hpf (0 - 3) Urine WBC 1 /hpf (0 - 3) Urine Squamous Epithelial Cells None seen /hpf (<5) Urine Bacteria None seen /hpf (None Seen) Urine Glucose 4+ mg/dL (Normal) H Microbiology Microbiology Date/Time Source Procedure Growth Status 07/19/24 14:47 Buttock Gram Stain - Final Complete 07/19/24 14:47 Buttock Anaerobic Culture - Final Complete 07/19/24 14:47 Aerobic Culture - Final Enterococcus faecalis Complete 07/13/24 16:02 Urine - [place] Urine Culture - Final Yeast, not Araceli albicans Complete 07/08/24 18:27 Bronchial Washings Gram Stain - Final Complete 07/08/24 18:27 Respiratory Culture - Final Staphylococcus aureus Stenotrophomonas maltophilia Complete 07/03/24 19:35 Blood Blood Culture - Final Staph hominis subsp homins Complete Assessment/Plan Assessment/Plan DKA, resolved DM, uncontrolled Acute hypoxic respiratory failure s/p intubation on mechanical ventilator ZOYA Sepsis w septic shock Hypernatremia Fever B feet ulcers Thrombocytopenia due to sepsis, improved Sacral decub ulcer PLAN: 07/03/2024: IV fluids, change to 1/2 NS Nephrology consult Vasopressors as needed Blood, urine and sputum cultures IV antibiotics: Empiric, change to Cefepime and Vanco Sedation as needed Start Lantus Full code Discussed with family at the bedside Advance directives discussed with family x 20 minutes 07/04/2024: Diarrhea: Check the stools for C diff ZOYA: Continue IV fluids Hypernatremia: Start free water Sepsis with septic shock: Continue cefepime and vancomycin Hypotension: Vasopressors Uterine cultures and respiratory cultures are Discussed with the family at the bedside Lantus 10 units twice a day Accu-Cheks q.4 hours 07/05/24: Continue IV fluids 1/2 NS Vancomycin + Cefepime Free water Minimize sedation Taper down Levophed Podiatry consult MRSA screen: Negative Lantus Discussed with at the bedside 07/06/24: Hypernatremia: Repeat labs Hypokalemia: Replace Vancomycin and Cefepime Continue free water 09/06/2024: Hypernatremia: Continue free water, start tube feeding with Glucerna , discontinue the IV fluids IV antibiotics: Cefepime and vancomycin Lantus Sliding scale Nephrology consult Pulmonary consult Discussed with the at the bedside Full code 07/08/2024: Continue free water to correct hypernatremia C-PAP trial in progress Wound infection with Staph aureus Sputum culture showed Staph aureus and Klebsiella pneumoniae and Citrobacter Blood culture with Staph home in his Cefepime and vancomycin Endoscopy for today Extubation possibly after bronchoscopy today 07/09/24: Change IV antibiotics to Levaquin and Diflucan Free water Hold sedation C-PAP, extubate? Replace K+ Discussed with at the bedside 07/10/24: Start IV D5W Swallow eval PT eval IS Out of bed Suction IV Levaquin IV Diflucan Levophed, taper as tolerated Discussed with and sister at the bedside 07/12/2024: Due to fluid overload, chest x-ray shows congestion: DC the IV fluids, Lasix IV 40 mg x 1, Hypokalemia: Replace p.o. DC the [place] Out of bed as tolerated Physical therapy IV antibiotics: Levofloxacin and Diflucan Off the Levophed drip 07/13/2024: Give more Lasix 40 mg IV Continue IV Levaquin and Diflucan Replace potassium Downgrade to the EWA Continue physical therapy Continue med nebs with Mucomyst Discussed with the at the bedside : Sacral ulcer: consult Sx Pulmonary congestion: Lasix 40 mg IV Pneumonia: Bactrim & Micafungin IV Sepsis w septic shock: Levophed Lovenox Protonix Physical therapy 07/17/2024: Give more Lasix 40 mg IV once Continue IV antibiotics with Bactrim and micafungin General surgery is planning on surgery on decubitus ulcer of the sacrum on Friday Coagulopathy to be corrected with vitamin K 07/18/2024: Coagulopathy is improved The patient is scheduled for surgery for his decubitus ulcer of the sacrum tomorrow Continue IV antibiotics Bactrim and micafungin Lasix 20 mg IV 1 dose Tapered the Levophed off as tolerated Discussed with the at the bedside 07/19/2024: Levophed as needed for blood pressure support Continue IV Bactrim and micafungin Surgery today per Dr. Grewal Lasix as needed 07/20/2024: Still on Levophed, tapered down as tolerated Add midodrine 2.5 mg 3 times a day Continue IV Bactrim and micafungin Continue physical therapy and out of bed as tolerated Discussed with the at the bedside 07/21/24: Low BP: Increase midodrine to 5 mg tid Add Glucerna Constipation: Lactulose Colace Taper down Levophed IV antibiotics: Bactrim & Micafungin Lantus 10 units bid Advance diet Discussed with at the bedside 07/22/2024: Increase midodrine to 10 mg t.i.d. Taper down the Levophed as tolerated Continue IV Bactrim and micafungin Out of bed as tolerated Physical therapy Discussed with the at the bedside downgrade from ICU once he is off the Levophed 07/23/2024: Sepsis: Discontinue Bactrim due to hyponatremia, consult Infectious Disease, continue micafungin for now Continue Levophed, tapered the dose as tolerated Continue midodrine 10 mg t.i.d. Start normal saline IV fluids Increase Lantus to 15 units twice a day Out of bed as tolerated Discussed with the at the bedside 07/26/2024: Continue physical therapy Continue normal saline 60 mL an hour Lovenox prophylactic dose [place] p[employer]r.n[employer] for pain Lantus 15 units twice a day Multivitamins Out of bed as tolerated Tapered the oxygen off slowly as tolerated Plan discussed with: Patient Date of Service: Jul 26, 2024 Billing Provider: MEHRAN GUERRERO MD Common Visit Codes: [id number] INP/OBS CARE(HIGH) MEHRAN GUERRERO MD Jul 26, 2024 15:05
--- NOTE | 2024-07-26 19:06 | DVHPN2 ---
Progress Note - Dictate Date Seen: Jul 26, 2024 Medical Necessity Reason Pt with a Central, PICC or Fol: Yes The following are medically ne: Jesus Catheter Reason for jesus catheter: Strict I&O Subjective Patient seen and examined at bedside. On room air. Overnight events reviewed. vital signs Vital Sign Date Time Temp Pulse Resp B/P (MAP) Pulse Ox O2 Delivery O2 Flow Rate FiO2 07/26/24 17:00 98.2 92 18 122/73 (89) 97 98.2 07/26/24 16:01 Nasal Cannula* 1 24 Total Intake and Output 07/25/24 07/25/24 07/26/24 15:00 23:00 07:00 Intake Total 240 ml 1055 ml 420 ml Output Total 1650 ml 1200 ml Balance 240 ml -595 ml -780 ml medications Current Medications Medications Dose Ordered Sig/Sandra Route Start Time Stop Time Status Last Admin Dose Admin Ondansetron HCl 4 mg Q4HP PRN IV 07/02/24 23:15 07/13/24 20:21 4 MG Nitroglycerin 0.4 mg Q5MINP PRN SL 07/02/24 23:15 Acetaminophen 650 mg Q6HP PRN GT 07/03/24 12:30 Hold 07/04/24 03:53 650 MG Enoxaparin Sodium 40 mg DAILY SC 07/04/24 10:00 07/26/24 09:57 40 MG Pantoprazole Sodium 40 mg DAILY IV 07/12/24 13:45 07/26/24 09:57 40 MG Propofol 100 ml @ 2.22 mls/hr Q24H IV 07/13/24 08:00 Cancel Sodium Chloride 10 ml QSHIFT@10,22 IV 07/14/24 22:00 07/26/24 09:57 10 ML Diagnostic Test (Pha) 1 strip ACHS 07/18/24 07:00 07/26/24 17:28 1 STRIP Insulin Human Regular HS SC 07/18/24 22:00 07/25/24 21:48 3 UNITS Insulin Human Regular AC SC 07/18/24 07:00 07/26/24 17:33 6 UNITS Dextrose 50 ml UD PRN IV 07/18/24 06:30 Acetaminophen/ Hydrocodone Bitart 1 tab Q6HPRN PRN PO 07/18/24 11:30 07/26/24 11:15 1 TAB Budesonide 0.5 mg BID PRN NEB 07/21/24 15:30 Hold Enteral Nutritional Formula 240 ml TIDWM PO 07/21/24 18:00 07/26/24 17:59 240 ML Alprazolam 0.25 mg Q8HP PRN PO 07/21/24 16:45 Docusate Sodium 100 mg BID PO 07/21/24 22:00 07/25/24 21:34 100 MG Magnesium Oxide 400 mg DAILY PO 07/22/24 10:00 07/26/24 09:57 400 MG Zinc Sulfate 220 mg DAILY PO 07/22/24 10:00 07/26/24 09:57 220 MG Ascorbic Acid 500 mg BID PO 07/21/24 22:00 07/26/24 09:57 500 MG Midodrine 10 mg TID@0600,1200,1800 PO 07/22/24 13:45 07/26/24 11:56 10 MG Sodium Chloride 1,000 ml @ 60 mls/hr [id number] IV 07/23/24 07:30 07/26/24 06:21 60 MLS/HR Insulin Glargine 15 units BID@0700,2200 SC 07/23/24 22:00 07/26/24 06:18 15 UNITS Lorazepam 1 mg QHSP PRN PO 07/24/24 15:30 Temazepam 30 mg HSPRN PRN PO 07/25/24 13:45 Levalbuterol HCl 0.625 mg Q8HP NEB 07/26/24 22:00 objective Gen.: Patient lying in bed in no apparent distress. Breathing on room air. Head: Normocephalic, atraumatic. Eyes: EOMI/PERRLA. Ears: Normal hearing. Normal anatomy. Neck/trachea: Trachea midline, supple. Nose: Normal external anatomy. Mouth: Moist mucous membranes. Chest: Decreased air entry bilaterally. No wheezing or rhonchi. Cardiovascular: Positive S1, positive S2. Regular rate and rhythm. Abdomen: Positive bowel sounds in all 4 quadrants. Soft, non-tender, non- distended. : Deferred. Rectal: Deferred. Skin: Warm, dry. Intact. Extremities: 2+ radial pulses bilaterally. No lower extremity edema. Neuro: Awake, alert, oriented x3. No gross motor or sensory deficits. Cranial nerves II through XII intact. Gait not assessed. laboratory and microbiology Laboratory Tests 07/25/24 03:16 Test 07/25/24 03:16 Range/Units Serum Glucose 87 # 74-106 mg/dL Assessment/Plan Impression: Acute hypoxic respiratory failure, improving Diabetic ketoacidosis, improved Acute kidney injury Cachexia with a BMI of 18.8 Pseudohyponatremia due to hyperglycemia Buttock wound: Enterococcus faecalis UTI: Yeast. Pneumonia, Stenotrophomonas maltophilia and Staphylococcus aureus Events: Remains on room air. No respiratory distress. Off Levophed since 6:30 AM on 07/25. Continue midodrine Monitor blood pressures. Incentive spirometry Accu-Cheks, glycemic control Wound care Labs and imaging reviewed. Rest of plan as noted below. Plan: On room air IS Bronchodilators Pulmicort BID Antibiotics Pressors as necessary for hemodynamic support. Titrate to keep SBP above 90 mmHg. On midodrine Completed micafungin course. Maintain euvolemia. Monitor renal function Monitor electrolytes, supplement as necessary Potassium supplementation Pain control/anxiolytic PRN Avoid oversedation Nutritional supplementation with Glucerna. Accu-Cheks, ISS Labs and imaging reviewed GI/DVT prophylaxis. Prognosis: Guarded given multiple comorbidities. Rest of plan per hospitalist and other consultants. Thank you Dr Saucedo for allowing me to participate in this patient's care. Further recommendations will depend on patient's clinical course. Please do not hesitate to contact me if you have any questions or concerns. This medical document was created using an electronic medical record system with [employer] dictation system. Although this document has been carefully reviewed, there may still be some phonetic and typographical errors. These areas are purely typographical due to imperfections of the software programs, and do not reflect any compromise in the patient's medical care. Dietary Evaluation Review Comments: 1) If GI is preferred route consider Nepro @ 45 ml/hr goal rate as tolerated 2) If pt remains NPO >7 days consider TPN to meet at least 75% of estimated needs 3) Advance pt diet when medically feasible to a CCHO 60g, Renal diet modified per [employer] recommendations 4) Continue current plan of care Expected Outcomes/Goals: 1. Pt will consume >75% of estimated needs within 2-3 days Plan discussed with: Patient, Other (LUKE Craven) NADER ALLEN MD Jul 26, 2024 19:06
[2024-07-26] MEDS: LEVALBUTEROL HCL 1.25 MG/3 ML NEB NEB SCH (22:11)
[2024-07-26] MEDS: TEMAZEPAM 15 MG CAP PO PRN (22:20)
[2024-07-27] VITALS (13 sets, daily range): BP systolic 92–106; BP diastolic 32–61; PULSE 68–105; RESP 16–22; TEMP 97.9–98.8; O2SAT 93–100
--- NOTE | 2024-07-27 10:06 | DVHPN2 ---
Subjective No new complaints except for weakness Pressure is stable but soft in the 90s and low 100s Changes from previous H/P or p: Changes Eyes: No Pain, No Vision change, No Conjunctivae inflammation, No Eyelid inflammation, No Other, No Redness ENT: No Ear pain, No Ear discharge, No Nose pain, No Nose discharge, No Nose congestion, No Mouth pain, No Mouth swelling, No Throat pain, No Throat swelling, No Other Cardiovascular: No Chest Pain, No Palpitations, No Orthopnea, No Paroxysmal Noc. Dyspnea, No Edema, No Lt Headedness, No Other Respiratory: No Cough, No Dry, No Shortness of breath, No SOB with excertion, No Wheezing, No Hemoptysis, No Pleuritic Pain, No Sputum, No Other Gastrointestinal: No Nausea, No Vomiting, No Abdominal Pain, No Diarrhea, No Constipation, No Melena, No Hematochezia, No Other Genitourinary: No Dysuria, No Frequency, No Incontinence, No Hematuria, No Retention, No Other Musculoskeletal: No other, No neck pain, No shoulder pain, No arm pain, No back pain, No hand pain, No leg pain, No foot pain Skin: No Rash, No Lesions, No Jaundice, No Bruising, No Other Objective Vitals Vital Signs Date Time Temp Pulse Resp B/P (MAP) Pulse Ox O2 Delivery O2 Flow Rate FiO2 07/27/24 09:00 98.8 74 19 92/32 (52) 96 98.8 07/27/24 07:07 Room Air* 0 21 Intake/Output Intake and Output 07/27/24 07:00 Intake Total 2414 ml Output Total 3452 ml Balance -1038 ml Intake Oral 1174 ml IV Total 1240 ml Output Urine Total 3452 ml # Bowel Movements 4 General Appearance: Alert (Somnolent, off sedation), Oriented X3, Cooperative, No acute distress Lungs: Clear to auscultation, Normal air movement Chest/Breasts: Other (Bilateral rhonchi and crackles diffusely) Cardiovascular: Regular rate, Normal S1 Abdomen: Normal bowel sounds, Soft, No tenderness Extremities: No edema Medications Current Medications Medications Dose Ordered Sig/Sandra Route Start Time Stop Time Status Last Admin Dose Admin Ondansetron HCl 4 mg Q4HP PRN IV 07/02/24 23:15 07/13/24 20:21 4 MG Nitroglycerin 0.4 mg Q5MINP PRN SL 07/02/24 23:15 Acetaminophen 650 mg Q6HP PRN GT 07/03/24 12:30 Hold 07/04/24 03:53 650 MG Enoxaparin Sodium 40 mg DAILY SC 07/04/24 10:00 07/27/24 09:25 40 MG Pantoprazole Sodium 40 mg DAILY IV 07/12/24 13:45 07/27/24 09:24 40 MG Propofol 100 ml @ 2.22 mls/hr Q24H IV 07/13/24 08:00 Cancel Sodium Chloride 10 ml QSHIFT@10,22 IV 07/14/24 22:00 07/27/24 09:24 10 ML Diagnostic Test (Pha) 1 strip ACHS 07/18/24 07:00 07/27/24 06:20 1 STRIP Insulin Human Regular HS SC 07/18/24 22:00 07/26/24 20:52 2 UNITS Insulin Human Regular AC SC 07/18/24 07:00 07/27/24 06:23 3 UNITS Dextrose 50 ml UD PRN IV 07/18/24 06:30 Acetaminophen/ Hydrocodone Bitart 1 tab Q6HPRN PRN PO 07/18/24 11:30 07/27/24 09:25 1 TAB Budesonide 0.5 mg BID PRN NEB 07/21/24 15:30 Hold Enteral Nutritional Formula 240 ml TIDWM PO 07/21/24 18:00 07/27/24 08:00 240 ML Alprazolam 0.25 mg Q8HP PRN PO 07/21/24 16:45 Docusate Sodium 100 mg BID PO 07/21/24 22:00 07/25/24 21:34 100 MG Magnesium Oxide 400 mg DAILY PO 07/22/24 10:00 07/27/24 09:25 400 MG Zinc Sulfate 220 mg DAILY PO 07/22/24 10:00 07/27/24 09:24 220 MG Ascorbic Acid 500 mg BID PO 07/21/24 22:00 07/27/24 09:25 500 MG Midodrine 10 mg TID@0600,1200,1800 PO 07/22/24 13:45 07/27/24 06:20 10 MG Sodium Chloride 1,000 ml @ 60 mls/hr [id number] IV 07/23/24 07:30 07/27/24 02:00 60 MLS/HR Insulin Glargine 15 units BID@0700,2200 SC 07/23/24 22:00 07/27/24 06:24 15 UNITS Lorazepam 1 mg QHSP PRN PO 07/24/24 15:30 Temazepam 30 mg HSPRN PRN PO 07/25/24 13:45 07/26/24 22:20 30 MG Levalbuterol HCl 0.625 mg Q8HP NEB 07/26/24 22:00 07/27/24 07:07 0.625 MG Laboratory Results Laboratory Tests 07/25/24 03:16 Urinalysis Test 07/02/24 23:08 Urine Color Light-yellow (Yellow) Urine Clarity Clear (Clear) Urine pH 5.0 (5.0-9.0) Urine Specific [place] 1.025 (1.001-1.035) Urine Protein Negative (Negative) Urine Ketones 4+ (Negative) H Urine Blood Negative /uL (Negative) Urine Nitrite Negative (Negative) Urine Bilirubin Negative (Negative) Urine Urobilinogen Normal mg/dL (Negative) Urine Leukocyte Esterase Negative /uL (Negative) Urine RBC <1 /hpf (0 - 3) Urine WBC 1 /hpf (0 - 3) Urine Squamous Epithelial Cells None seen /hpf (<5) Urine Bacteria None seen /hpf (None Seen) Urine Glucose 4+ mg/dL (Normal) H Microbiology Microbiology Date/Time Source Procedure Growth Status 07/19/24 14:47 Buttock Gram Stain - Final Complete 07/19/24 14:47 Buttock Anaerobic Culture - Final Complete 07/19/24 14:47 Aerobic Culture - Final Enterococcus faecalis Complete 07/13/24 16:02 Urine - [place] Urine Culture - Final Yeast, not Araceli albicans Complete 07/08/24 18:27 Bronchial Washings Gram Stain - Final Complete 07/08/24 18:27 Respiratory Culture - Final Staphylococcus aureus Stenotrophomonas maltophilia Complete 07/03/24 19:35 Blood Blood Culture - Final Staph hominis subsp homins Complete Assessment/Plan Assessment/Plan DKA, resolved DM, uncontrolled Acute hypoxic respiratory failure s/p intubation on mechanical ventilator ZOYA Sepsis w septic shock Hypernatremia Fever B feet ulcers Thrombocytopenia due to sepsis, improved Sacral decub ulcer PLAN: 07/03/2024: IV fluids, change to 1/2 NS Nephrology consult Vasopressors as needed Blood, urine and sputum cultures IV antibiotics: Empiric, change to Cefepime and Vanco Sedation as needed Start Lantus Full code Discussed with family at the bedside Advance directives discussed with family x 20 minutes 07/04/2024: Diarrhea: Check the stools for C diff ZOYA: Continue IV fluids Hypernatremia: Start free water Sepsis with septic shock: Continue cefepime and vancomycin Hypotension: Vasopressors Uterine cultures and respiratory cultures are Discussed with the family at the bedside Lantus 10 units twice a day Accu-Cheks q.4 hours 07/05/24: Continue IV fluids 1/2 NS Vancomycin + Cefepime Free water Minimize sedation Taper down Levophed Podiatry consult MRSA screen: Negative Lantus Discussed with at the bedside 07/06/24: Hypernatremia: Repeat labs Hypokalemia: Replace Vancomycin and Cefepime Continue free water 09/06/2024: Hypernatremia: Continue free water, start tube feeding with Glucerna , discontinue the IV fluids IV antibiotics: Cefepime and vancomycin Lantus Sliding scale Nephrology consult Pulmonary consult Discussed with the at the bedside Full code 07/08/2024: Continue free water to correct hypernatremia C-PAP trial in progress Wound infection with Staph aureus Sputum culture showed Staph aureus and Klebsiella pneumoniae and Citrobacter Blood culture with Staph home in his Cefepime and vancomycin Endoscopy for today Extubation possibly after bronchoscopy today 07/09/24: Change IV antibiotics to Levaquin and Diflucan Free water Hold sedation C-PAP, extubate? Replace K+ Discussed with at the bedside 07/10/24: Start IV D5W Swallow eval PT eval IS Out of bed Suction IV Levaquin IV Diflucan Levophed, taper as tolerated Discussed with and sister at the bedside 07/12/2024: Due to fluid overload, chest x-ray shows congestion: DC the IV fluids, Lasix IV 40 mg x 1, Hypokalemia: Replace p.o. DC the [place] Out of bed as tolerated Physical therapy IV antibiotics: Levofloxacin and Diflucan Off the Levophed drip 07/13/2024: Give more Lasix 40 mg IV Continue IV Levaquin and Diflucan Replace potassium Downgrade to the EWA Continue physical therapy Continue med nebs with Mucomyst Discussed with the at the bedside : Sacral ulcer: consult Sx Pulmonary congestion: Lasix 40 mg IV Pneumonia: Bactrim & Micafungin IV Sepsis w septic shock: Levophed Lovenox Protonix Physical therapy 07/17/2024: Give more Lasix 40 mg IV once Continue IV antibiotics with Bactrim and micafungin General surgery is planning on surgery on decubitus ulcer of the sacrum on Friday Coagulopathy to be corrected with vitamin K 07/18/2024: Coagulopathy is improved The patient is scheduled for surgery for his decubitus ulcer of the sacrum tomorrow Continue IV antibiotics Bactrim and micafungin Lasix 20 mg IV 1 dose Tapered the Levophed off as tolerated Discussed with the at the bedside 07/19/2024: Levophed as needed for blood pressure support Continue IV Bactrim and micafungin Surgery today per Dr. Grewal Lasix as needed 07/20/2024: Still on Levophed, tapered down as tolerated Add midodrine 2.5 mg 3 times a day Continue IV Bactrim and micafungin Continue physical therapy and out of bed as tolerated Discussed with the at the bedside 07/21/24: Low BP: Increase midodrine to 5 mg tid Add Glucerna Constipation: Lactulose Colace Taper down Levophed IV antibiotics: Bactrim & Micafungin Lantus 10 units bid Advance diet Discussed with at the bedside 07/22/2024: Increase midodrine to 10 mg t.i.d. Taper down the Levophed as tolerated Continue IV Bactrim and micafungin Out of bed as tolerated Physical therapy Discussed with the at the bedside downgrade from ICU once he is off the Levophed 07/23/2024: Sepsis: Discontinue Bactrim due to hyponatremia, consult Infectious Disease, continue micafungin for now Continue Levophed, tapered the dose as tolerated Continue midodrine 10 mg t.i.d. Start normal saline IV fluids Increase Lantus to 15 units twice a day Out of bed as tolerated Discussed with the at the bedside 07/26/2024: Continue physical therapy Continue normal saline 60 mL an hour Lovenox prophylactic dose [place] p.r.n. for pain Lantus 15 units twice a day Multivitamins Out of bed as tolerated Tapered the oxygen off slowly as tolerated 07/27/2024: Discussed discharge planning with the patient, suggested SNF, he is in agreement Continue physical therapy and wound care while he is here Consult social media specialist to arrange SNF for wound care and physical therapy Continue normal saline Continue Lantus to control his diabetes Plan discussed with: Patient, Spouse Date of Service: Jul 27, 2024 Billing Provider: MEHRAN GUERRERO MD Common Visit Codes: [id number] INP/OBS CARE(HIGH) MEHRAN GUERRERO MD Jul 27, 2024 10:06
--- NOTE | 2024-07-27 13:11 | DVHPN2 ---
Progress Note - Dictate Date Seen: Jul 27, 2024 Medical Necessity Reason Pt with a Central, PICC or Fol: Yes The following are medically ne: Jesus Catheter Reason for jesus catheter: Strict I&O Subjective Patient was seen and evaluated. at bedside. He is wake and responsive, alert and oriented x4. transfer to [facility] Wounds cleaned and dressings changed. No new complaints except for weakness Pressure is stable but soft in the 90s and low 100s Antibiotics history Zosyn 07/03 Unasyn 07/13 to 07/14 Cefepime 07/03 to 07/09 Levofloxacin 07/09 to 07/13 (4-5 days) Vancomycin 07/03 to 07/09 ( 6 days) IV Bactrim 07/13-07/23 IV micafungin 07/15 to 07/23 Culture history 07/02 sputum culture grew Staphylococcus aureus (MSSA), Klebsiella pneumoniae ( Ramires sensitive)and Citrobacter 07/03 urine culture from Jesus grew E coli and Enterococcus faecalis 07/03 blood culture grew Staph hominis MRSA nasal screen negative 07/05 wound culture from foot grew MSSA and Streptococcus group 07/08: Staphylococcus aureus and stenotrophomonas maltophilia 07/19 wound culture is Enterococcus faecalis vital signs Vital Sign Date Time Temp Pulse Resp B/P (MAP) Pulse Ox O2 Delivery O2 Flow Rate FiO2 07/27/24 09:00 98.8 74 19 92/32 (52) 96 98.8 07/27/24 08:00 Nasal Cannula* 1 24 Total Intake and Output 07/26/24 07/26/24 07/27/24 15:00 23:00 07:00 Intake Total 1225 ml 1189 ml Output Total 1302 ml 2150 ml Balance -77 ml -961 ml medications Current Medications Medications Dose Ordered Sig/Sandra Route Start Time Stop Time Status Last Admin Dose Admin Ondansetron HCl 4 mg Q4HP PRN IV 07/02/24 23:15 07/13/24 20:21 4 MG Nitroglycerin 0.4 mg Q5MINP PRN SL 07/02/24 23:15 Acetaminophen 650 mg Q6HP PRN GT 07/03/24 12:30 Hold 07/04/24 03:53 650 MG Enoxaparin Sodium 40 mg DAILY SC 07/04/24 10:00 07/27/24 09:25 40 MG Pantoprazole Sodium 40 mg DAILY IV 07/12/24 13:45 07/27/24 09:24 40 MG Propofol 100 ml @ 2.22 mls/hr Q24H IV 07/13/24 08:00 Cancel Sodium Chloride 10 ml QSHIFT@10,22 IV 07/14/24 22:00 07/27/24 09:24 10 ML Diagnostic Test (Pha) 1 strip ACHS 07/18/24 07:00 07/27/24 11:43 1 STRIP Insulin Human Regular HS SC 07/18/24 22:00 07/26/24 20:52 2 UNITS Insulin Human Regular AC SC 07/18/24 07:00 07/27/24 11:43 3 UNITS Dextrose 50 ml UD PRN IV 07/18/24 06:30 Acetaminophen/ Hydrocodone Bitart 1 tab Q6HPRN PRN PO 07/18/24 11:30 07/27/24 09:25 1 TAB Budesonide 0.5 mg BID PRN NEB 07/21/24 15:30 Hold Enteral Nutritional Formula 240 ml TIDWM PO 07/21/24 18:00 07/27/24 11:43 240 ML Alprazolam 0.25 mg Q8HP PRN PO 07/21/24 16:45 Docusate Sodium 100 mg BID PO 07/21/24 22:00 07/25/24 21:34 100 MG Magnesium Oxide 400 mg DAILY PO 07/22/24 10:00 07/27/24 09:25 400 MG Zinc Sulfate 220 mg DAILY PO 07/22/24 10:00 07/27/24 09:24 220 MG Ascorbic Acid 500 mg BID PO 07/21/24 22:00 07/27/24 09:25 500 MG Midodrine 10 mg TID@0600,1200,1800 PO 07/22/24 13:45 07/27/24 11:43 10 MG Sodium Chloride 1,000 ml @ 60 mls/hr [id number] IV 07/23/24 07:30 07/27/24 02:00 60 MLS/HR Insulin Glargine 15 units BID@0700,2200 SC 07/23/24 22:00 07/27/24 06:24 15 UNITS Lorazepam 1 mg QHSP PRN PO 07/24/24 15:30 Temazepam 30 mg HSPRN PRN PO 07/25/24 13:45 07/26/24 22:20 30 MG Levalbuterol HCl 0.625 mg Q8HP NEB 07/26/24 22:00 07/27/24 07:07 0.625 MG objective General alert and oriented HEENT: Atraumatic Neck: No swelling Lungs: decreased breath sounds Cardiovascular: S2 heard no murmur Abdomen: Soft nontender, no organomegaly, nondistended Neuro: Alert and oriented, generalized weakness. skin multiple wounds : has decub and wounds also on feet Psych: Normal mood and affect laboratory and microbiology Laboratory Tests 07/25/24 03:16 Test 07/25/24 03:16 Range/Units Serum Glucose 87 # 74-106 mg/dL Assessment/Plan Patient is a 49 [id number] with Hyponatremia due to BActrim ( antibiotics side effects) Sepsis with septic shock : improving Hypotension Hyperkalemia ( due to Bactrim) Decub ulcers MSSA pneumonia DKA resolved acute hypoxic respiratory failure Recommendations off Bactrim, hyponatremia and hyperkalemia possibly secondary to Bactrim; improved Patient has received prolonged course of antibiotics with vancomycin followed by levofloxacin and Bactrim hence more than adequately treated for MSSA pneumonia off IV micafungin, urine is colonized secondary to Jesus catheter Continue to monitor Patient has pulmonary edema, consider gentle diuresis Continue wound care for sacral decubitus ulcer, frequent turn and offloading thank you for opportunity to co manage the patient. Dietary Evaluation Review Comments: 1) If GI is preferred route consider Nepro @ 45 ml/hr goal rate as tolerated 2) If pt remains NPO >7 days consider TPN to meet at least 75% of estimated needs 3) Advance pt diet when medically feasible to a CCHO 60g, Renal diet modified per COMPUTER NETWORKING INSTRUCTOR [employer] recommendations 4) Continue current plan of care Expected Outcomes/Goals: 1. Pt will consume >75% of estimated needs within 2-3 days Plan discussed with: CIRO Gonzales MD Jul 27, 2024 13:11
--- NOTE | 2024-07-27 19:28 | DVHPN2 ---
Progress Note - Dictate Date Seen: Jul 27, 2024 Medical Necessity Reason Pt with a Central, PICC or Fol: Yes The following are medically ne: Jesus Catheter Reason for jesus catheter: Strict I&O Subjective Patient seen and examined at bedside. On room air. Overnight events reviewed. vital signs Vital Sign Date Time Temp Pulse Resp B/P (MAP) Pulse Ox O2 Delivery O2 Flow Rate FiO2 07/27/24 17:02 98.3 100 16 106/61 (76) 98 98.3 07/27/24 14:13 Room Air* 0 21 Total Intake and Output 07/26/24 07/26/24 07/27/24 15:00 23:00 07:00 Intake Total 1225 ml 1189 ml Output Total 1302 ml 2150 ml Balance -77 ml -961 ml medications Current Medications Medications Dose Ordered Sig/Sandra Route Start Time Stop Time Status Last Admin Dose Admin Ondansetron HCl 4 mg Q4HP PRN IV 07/02/24 23:15 07/13/24 20:21 4 MG Nitroglycerin 0.4 mg Q5MINP PRN SL 07/02/24 23:15 Acetaminophen 650 mg Q6HP PRN GT 07/03/24 12:30 Hold 07/04/24 03:53 650 MG Enoxaparin Sodium 40 mg DAILY SC 07/04/24 10:00 07/27/24 09:25 40 MG Pantoprazole Sodium 40 mg DAILY IV 07/12/24 13:45 07/27/24 09:24 40 MG Propofol 100 ml @ 2.22 mls/hr Q24H IV 07/13/24 08:00 Cancel Sodium Chloride 10 ml QSHIFT@10,22 IV 07/14/24 22:00 07/27/24 09:24 10 ML Diagnostic Test (Pha) 1 strip ACHS 07/18/24 07:00 07/27/24 17:20 1 STRIP Insulin Human Regular HS SC 07/18/24 22:00 07/26/24 20:52 2 UNITS Insulin Human Regular AC SC 07/18/24 07:00 07/27/24 17:21 6 UNITS Dextrose 50 ml UD PRN IV 07/18/24 06:30 Acetaminophen/ Hydrocodone Bitart 1 tab Q6HPRN PRN PO 07/18/24 11:30 07/27/24 17:29 1 TAB Budesonide 0.5 mg BID PRN NEB 07/21/24 15:30 Hold Enteral Nutritional Formula 240 ml TIDWM PO 07/21/24 18:00 07/27/24 17:20 240 ML Alprazolam 0.25 mg Q8HP PRN PO 07/21/24 16:45 Docusate Sodium 100 mg BID PO 07/21/24 22:00 07/25/24 21:34 100 MG Magnesium Oxide 400 mg DAILY PO 07/22/24 10:00 07/27/24 09:25 400 MG Zinc Sulfate 220 mg DAILY PO 07/22/24 10:00 07/27/24 09:24 220 MG Ascorbic Acid 500 mg BID PO 07/21/24 22:00 07/27/24 09:25 500 MG Midodrine 10 mg TID@0600,1200,1800 PO 07/22/24 13:45 07/27/24 17:20 10 MG Sodium Chloride 1,000 ml @ 60 mls/hr [id number] IV 07/23/24 07:30 07/27/24 17:29 60 MLS/HR Insulin Glargine 15 units BID@0700,2200 SC 07/23/24 22:00 07/27/24 06:24 15 UNITS Lorazepam 1 mg QHSP PRN PO 07/24/24 15:30 Temazepam 30 mg HSPRN PRN PO 07/25/24 13:45 07/26/24 22:20 30 MG Levalbuterol HCl 0.625 mg Q8HP NEB 07/26/24 22:00 07/27/24 14:24 0.625 MG objective Gen.: Patient lying in bed in no apparent distress. Breathing on room air. Head: Normocephalic, atraumatic. Eyes: EOMI/PERRLA. Ears: Normal hearing. Normal anatomy. Neck/trachea: Trachea midline, supple. Nose: Normal external anatomy. Mouth: Moist mucous membranes. Chest: Decreased air entry bilaterally. No wheezing or rhonchi. Cardiovascular: Positive S1, positive S2. Regular rate and rhythm. Abdomen: Positive bowel sounds in all 4 quadrants. Soft, non-tender, non- distended. : Deferred. Rectal: Deferred. Skin: Warm, dry. Intact. Extremities: 2+ radial pulses bilaterally. No lower extremity edema. Neuro: Awake, alert, oriented x3. No gross motor or sensory deficits. Cranial nerves II through XII intact. Gait not assessed. laboratory and microbiology Laboratory Tests 07/25/24 03:16 Test 07/25/24 03:16 Range/Units Serum Glucose 87 # 74-106 mg/dL Assessment/Plan Impression: Acute hypoxic respiratory failure, improving Diabetic ketoacidosis, improved Acute kidney injury Cachexia with a BMI of 18.8 Pseudohyponatremia due to hyperglycemia Buttock wound: Enterococcus faecalis UTI: Yeast. Pneumonia, Stenotrophomonas maltophilia and Staphylococcus aureus Events: Remains on room air. No respiratory distress. Off Levophed since 6:30 AM on 07/25. Continue midodrine TID Monitor blood pressures. Incentive spirometry PT evaluation. Accu-Cheks, glycemic control Wound care Disposition per hospitalist. Labs and imaging reviewed Plan: On room air IS Bronchodilators Pulmicort BID Antibiotics Pressors as necessary for hemodynamic support. Titrate to keep SBP above 90 mmHg. On midodrine. Completed micafungin course. Maintain euvolemia. Monitor renal function Monitor electrolytes, supplement as necessary Potassium supplementation Pain control/anxiolytic PRN Avoid oversedation Nutritional supplementation with Glucerna. Accu-Cheks, ISS Labs and imaging reviewed GI/DVT prophylaxis. Prognosis: Guarded given multiple comorbidities. Rest of plan per hospitalist and other consultants. Thank you Dr Saucedo for allowing me to participate in this patient's care. Further recommendations will depend on patient's clinical course. Please do not hesitate to contact me if you have any questions or concerns. This medical document was created using an electronic medical record system with [employer] dictation system. Although this document has been carefully reviewed, there may still be some phonetic and typographical errors. These areas are purely typographical due to imperfections of the software programs, and do not reflect any compromise in the patient's medical care. Dietary Evaluation Review Comments: 1) If GI is preferred route consider Nepro @ 45 ml/hr goal rate as tolerated 2) If pt remains NPO >7 days consider TPN to meet at least 75% of estimated needs 3) Advance pt diet when medically feasible to a CCHO 60g, Renal diet modified per RECREATION CLERK recommendations 4) Continue current plan of care Expected Outcomes/Goals: 1. Pt will consume >75% of estimated needs within 2-3 days Plan discussed with: Patient, Other (RN Saurabh) NADER ALLEN MD Jul 27, 2024 19:28
[2024-07-28] VITALS (17 sets, daily range): BP systolic 79–137; BP diastolic 37–70; PULSE 78–105; RESP 18–22; TEMP 97.9–98.4; O2SAT 93–100
[2024-07-28 09:41] LABS: Basophils # (auto) 0.1 10 ^3/uL (0-0.2); Eosinophils # (auto) 0.2 10 ^3/uL (0-0.8); Eosinophils % (auto) 2.3 % (0.0-7.0); Hemoglobin 9.4 g/dL (13.5-17.5); Lymphocytes # (auto) 0.8 10 ^3/uL (0.4-5.4); Lymphocytes % (auto) 12.1 % (10.0-50.0); Mean Corpuscular Hemoglobin 28.7 pg (28.0-32.0); Mean Corpuscular Hgb Conc. 32.4 g/dL (32.0-36.0); Mean Corpuscular Volume 88.5 fL (80.0-100.0); Monocytes # (auto) 0.5 10 ^3/uL (0-1.3); Monocytes % (auto) 7.6 % (0.0-12.0); Neutrophils # (auto) 5.4 10 ^3/uL (1.6-8.6); Platelet Count (auto) 535 10^3/uL (140-450); Red Blood Cells 3.28 10^6/uL (4.5-5.90); Red Cell Distribution Width 13.9 % (11.8-14.3)
[2024-07-28 10:00] LABS: Alanine Aminotransferase 17 U/L (7-40); Albumin 2.7 g/dL (3.2-4.8); Alkaline Phosphatase 99 U/L (46-116); Anion Gap 1 (5-15); Aspartate Aminotransferase 16 U/L (13-40); BUN/Creatinine Ratio 14.6 (10.0-20.0); Bilirubin, Total 0.2 mg/dL (0.2-1.0); Blood Urea Nitrogen 7 mg/dL (9-23); Calcium 8.6 mg/dL (8.7-10.4); Carbon Dioxide 30 mmol/L (20-31); Chloride 108 mmol/L (98-107); Glucose 118 mg/dL (74-106); Magnesium 1.8 mg/dL (1.6-2.6); Potassium 3.8 mmol/L (3.5-5.1); Sodium 139 mmol/L (136-145)
--- NOTE | 2024-07-28 11:39 | DVHPN2 ---
Subjective Doing better Ambulating with physical therapy in the hallway Blood pressure is better Changes from previous H/P or p: Changes Eyes: No Pain, No Vision change, No Conjunctivae inflammation, No Eyelid inflammation, No Other, No Redness ENT: No Ear pain, No Ear discharge, No Nose pain, No Nose discharge, No Nose congestion, No Mouth pain, No Mouth swelling, No Throat pain, No Throat swelling, No Other Cardiovascular: No Chest Pain, No Palpitations, No Orthopnea, No Paroxysmal Noc. Dyspnea, No Edema, No Lt Headedness, No Other Respiratory: No Cough, No Dry, No Shortness of breath, No SOB with excertion, No Wheezing, No Hemoptysis, No Pleuritic Pain, No Sputum, No Other Gastrointestinal: No Nausea, No Vomiting, No Abdominal Pain, No Diarrhea, No Constipation, No Melena, No Hematochezia, No Other Genitourinary: No Dysuria, No Frequency, No Incontinence, No Hematuria, No Retention, No Other Musculoskeletal: No other, No neck pain, No shoulder pain, No arm pain, No back pain, No hand pain, No leg pain, No foot pain Skin: No Rash, No Lesions, No Jaundice, No Bruising, No Other Objective Vitals Vital Signs Date Time Temp Pulse Resp B/P (MAP) Pulse Ox O2 Delivery O2 Flow Rate FiO2 07/28/24 10:11 91 20 100 07/28/24 10:05 Room Air* 0 21 07/28/24 09:08 98.1 88/37 (54) 98.1 Intake/Output Intake and Output 07/28/24 07:00 Intake Total 4280 ml Output Total 4200 ml Balance 80 ml Intake Oral 2740 ml IV Total 1540 ml Output Urine Total 4200 ml # Bowel Movements 2 General Appearance: Alert (Somnolent, off sedation), Oriented X3, Cooperative, No acute distress Lungs: Clear to auscultation, Normal air movement Chest/Breasts: Other (Bilateral rhonchi and crackles diffusely) Cardiovascular: Regular rate, Normal S1 Abdomen: Normal bowel sounds, Soft, No tenderness Extremities: No edema Medications Current Medications Medications Dose Ordered Sig/Sandra Route Start Time Stop Time Status Last Admin Dose Admin Ondansetron HCl 4 mg Q4HP PRN IV 07/02/24 23:15 07/13/24 20:21 4 MG Nitroglycerin 0.4 mg Q5MINP PRN SL 07/02/24 23:15 Acetaminophen 650 mg Q6HP PRN GT 07/03/24 12:30 Hold 07/04/24 03:53 650 MG Enoxaparin Sodium 40 mg DAILY SC 07/04/24 10:00 07/28/24 10:17 40 MG Pantoprazole Sodium 40 mg DAILY IV 07/12/24 13:45 07/28/24 10:16 40 MG Propofol 100 ml @ 2.22 mls/hr Q24H IV 07/13/24 08:00 Cancel Sodium Chloride 10 ml QSHIFT@10,22 IV 07/14/24 22:00 07/28/24 10:16 10 ML Diagnostic Test (Pha) 1 strip ACHS 07/18/24 07:00 07/28/24 05:47 1 STRIP Insulin Human Regular HS SC 07/18/24 22:00 07/27/24 21:49 6 UNITS Insulin Human Regular AC SC 07/18/24 07:00 07/28/24 05:42 3 UNITS Dextrose 50 ml UD PRN IV 07/18/24 06:30 Acetaminophen/ Hydrocodone Bitart 1 tab Q6HPRN PRN PO 07/18/24 11:30 07/28/24 06:15 1 TAB Budesonide 0.5 mg BID PRN NEB 07/21/24 15:30 Hold Enteral Nutritional Formula 240 ml TIDWM PO 07/21/24 18:00 07/27/24 17:20 240 ML Alprazolam 0.25 mg Q8HP PRN PO 07/21/24 16:45 Docusate Sodium 100 mg BID PO 07/21/24 22:00 07/28/24 10:16 100 MG Magnesium Oxide 400 mg DAILY PO 07/22/24 10:00 07/28/24 10:16 400 MG Zinc Sulfate 220 mg DAILY PO 07/22/24 10:00 07/28/24 10:16 220 MG Ascorbic Acid 500 mg BID PO 07/21/24 22:00 07/28/24 10:16 500 MG Midodrine 10 mg TID@0600,1200,1800 PO 07/22/24 13:45 07/28/24 05:43 10 MG Sodium Chloride 1,000 ml @ 60 mls/hr [id number] IV 07/23/24 07:30 07/27/24 17:29 60 MLS/HR Insulin Glargine 15 units BID@0700,2200 SC 07/23/24 22:00 07/28/24 05:42 15 UNITS Lorazepam 1 mg QHSP PRN PO 07/24/24 15:30 Temazepam 30 mg HSPRN PRN PO 07/25/24 13:45 07/27/24 21:44 30 MG Levalbuterol HCl 0.625 mg Q8HP NEB 07/26/24 22:00 07/28/24 10:05 0.625 MG Laboratory Results Laboratory Tests 07/28/24 09:26 Chemistry Test 07/28/24 09:26 Albumin 2.7 g/dL (3.2-4.8) L Calcium Level 8.6 mg/dL (8.7-10.4) L Magnesium Level 1.8 mg/dL (1.6-2.6) Total Protein 6.0 g/dL (5.7-8.2) LFT Test 07/28/24 09:26 Alanine Aminotransferase (ALT) 17 U/L (7-40) Alkaline Phosphatase 99 U/L (46-116) Aspartate Amino Transferase (AST) 16 U/L (13-40) Total Bilirubin 0.2 mg/dL (0.2-1.0) Urinalysis Test 07/02/24 23:08 Urine Color Light-yellow (Yellow) Urine Clarity Clear (Clear) Urine pH 5.0 (5.0-9.0) Urine Specific [place] 1.025 (1.001-1.035) Urine Protein Negative (Negative) Urine Ketones 4+ (Negative) H Urine Blood Negative /uL (Negative) Urine Nitrite Negative (Negative) Urine Bilirubin Negative (Negative) Urine Urobilinogen Normal mg/dL (Negative) Urine Leukocyte Esterase Negative /uL (Negative) Urine RBC <1 /hpf (0 - 3) Urine WBC 1 /hpf (0 - 3) Urine Squamous Epithelial Cells None seen /hpf (<5) Urine Bacteria None seen /hpf (None Seen) Urine Glucose 4+ mg/dL (Normal) H Microbiology Microbiology Date/Time Source Procedure Growth Status 07/19/24 14:47 Buttock Gram Stain - Final Complete 07/19/24 14:47 Buttock Anaerobic Culture - Final Complete 07/19/24 14:47 Aerobic Culture - Final Enterococcus faecalis Complete 07/13/24 16:02 Urine - [place] Urine Culture - Final Yeast, not Araceli albicans Complete 07/08/24 18:27 Bronchial Washings Gram Stain - Final Complete 07/08/24 18:27 Respiratory Culture - Final Staphylococcus aureus Stenotrophomonas maltophilia Complete 07/03/24 19:35 Blood Blood Culture - Final Staph hominis subsp homins Complete Assessment/Plan Assessment/Plan DKA, resolved DM, uncontrolled Acute hypoxic respiratory failure s/p intubation on mechanical ventilator ZOYA Sepsis w septic shock Hypernatremia Fever B feet ulcers Thrombocytopenia due to sepsis, improved Sacral decub ulcer PLAN: 07/03/2024: IV fluids, change to 1/2 NS Nephrology consult Vasopressors as needed Blood, urine and sputum cultures IV antibiotics: Empiric, change to Cefepime and Vanco Sedation as needed Start Lantus Full code Discussed with family at the bedside Advance directives discussed with family x 20 minutes 07/04/2024: Diarrhea: Check the stools for C diff ZOYA: Continue IV fluids Hypernatremia: Start free water Sepsis with septic shock: Continue cefepime and vancomycin Hypotension: Vasopressors Uterine cultures and respiratory cultures are Discussed with the family at the bedside Lantus 10 units twice a day Accu-Cheks q.4 hours 07/05/24: Continue IV fluids 1/2 NS Vancomycin + Cefepime Free water Minimize sedation Taper down Levophed Podiatry consult MRSA screen: Negative Lantus Discussed with at the bedside 07/06/24: Hypernatremia: Repeat labs Hypokalemia: Replace Vancomycin and Cefepime Continue free water 09/06/2024: Hypernatremia: Continue free water, start tube feeding with Glucerna , discontinue the IV fluids IV antibiotics: Cefepime and vancomycin Lantus Sliding scale Nephrology consult Pulmonary consult Discussed with the at the bedside Full code 07/08/2024: Continue free water to correct hypernatremia C-PAP trial in progress Wound infection with Staph aureus Sputum culture showed Staph aureus and Klebsiella pneumoniae and Citrobacter Blood culture with Staph home in his Cefepime and vancomycin Endoscopy for today Extubation possibly after bronchoscopy today 07/09/24: Change IV antibiotics to Levaquin and Diflucan Free water Hold sedation C-PAP, extubate? Replace K+ Discussed with at the bedside 07/10/24: Start IV D5W Swallow eval PT eval IS Out of bed Suction IV Levaquin IV Diflucan Levophed, taper as tolerated Discussed with and sister at the bedside 07/12/2024: Due to fluid overload, chest x-ray shows congestion: DC the IV fluids, Lasix IV 40 mg x 1, Hypokalemia: Replace p.o. DC the Torres Out of bed as tolerated Physical therapy IV antibiotics: Levofloxacin and Diflucan Off the Levophed drip 07/13/2024: Give more Lasix 40 mg IV Continue IV Levaquin and Diflucan Replace potassium Downgrade to the EWA Continue physical therapy Continue med nebs with Mucomyst Discussed with the at the bedside : Sacral ulcer: consult Sx Pulmonary congestion: Lasix 40 mg IV Pneumonia: Bactrim & Micafungin IV Sepsis w septic shock: Levophed Lovenox Protonix Physical therapy 07/17/2024: Give more Lasix 40 mg IV once Continue IV antibiotics with Bactrim and micafungin General surgery is planning on surgery on decubitus ulcer of the sacrum on Friday Coagulopathy to be corrected with vitamin K 07/18/2024: Coagulopathy is improved The patient is scheduled for surgery for his decubitus ulcer of the sacrum tomorrow Continue IV antibiotics Bactrim and micafungin Lasix 20 mg IV 1 dose Tapered the Levophed off as tolerated Discussed with the at the bedside 07/19/2024: Levophed as needed for blood pressure support Continue IV Bactrim and micafungin Surgery today per Dr. Grewal Lasix as needed 07/20/2024: Still on Levophed, tapered down as tolerated Add midodrine 2.5 mg 3 times a day Continue IV Bactrim and micafungin Continue physical therapy and out of bed as tolerated Discussed with the at the bedside 07/21/24: Low BP: Increase midodrine to 5 mg tid Add Glucerna Constipation: Lactulose Colace Taper down Levophed IV antibiotics: Bactrim & Micafungin Lantus 10 units bid Advance diet Discussed with at the bedside 07/22/2024: Increase midodrine to 10 mg t.i.d. Taper down the Levophed as tolerated Continue IV Bactrim and micafungin Out of bed as tolerated Physical therapy Discussed with the at the bedside downgrade from ICU once he is off the Levophed 07/23/2024: Sepsis: Discontinue Bactrim due to hyponatremia, consult Infectious Disease, continue micafungin for now Continue Levophed, tapered the dose as tolerated Continue midodrine 10 mg t.i.d. Start normal saline IV fluids Increase Lantus to 15 units twice a day Out of bed as tolerated Discussed with the at the bedside 07/26/2024: Continue physical therapy Continue normal saline 60 mL an hour Lovenox prophylactic dose [place] p.r.n. for pain Lantus 15 units twice a day Multivitamins Out of bed as tolerated Tapered the oxygen off slowly as tolerated 07/27/2024: Discussed discharge planning with the patient, suggested SNF, he is in agreement Continue physical therapy and wound care while he is here Consult social welfare clerk to arrange SNF for wound care and physical therapy Continue normal saline Continue Lantus to control his diabetes 07/28/2024: Continue physical therapy Discontinue Torres catheter The plan is to go home with home health hopefully tomorrow Order home health for wound care and physical therapy Plan discussed with: Patient, Spouse My Orders Orders - MEHRAN GUERRERO MD Procedure Category Date Status Time * [employer]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
--- NOTE | 2024-07-28 16:14 | DVHPN2 ---
Progress Note - Dictate Date Seen: Jul 28, 2024 Medical Necessity Reason Pt with a Central, PICC or Fol: No The following are medically ne: Jesus Catheter Reason for jesus catheter: Strict I&O Subjective Patient was seen and evaluated. He is awake and responsive, alert and oriented x4. Patient in bed with breathing unlabored on room air. No S/S of distress/SOB or pain. Antibiotics history Zosyn 07/03 Unasyn 07/13 to 07/14 Cefepime 07/03 to 07/09 Levofloxacin 07/09 to 07/13 (4-5 days) Vancomycin 07/03 to 07/09 ( 6 days) IV Bactrim 07/13-07/23 IV micafungin 07/15 to 07/23 Culture history 07/02 sputum culture grew Staphylococcus aureus (MSSA), Klebsiella pneumoniae ( Ramires sensitive)and Citrobacter 07/03 urine culture from Jesus grew E coli and Enterococcus faecalis 07/03 blood culture grew Staph hominis MRSA nasal screen negative 07/05 wound culture from foot grew MSSA and Streptococcus group 07/08: Staphylococcus aureus and stenotrophomonas maltophilia 07/19 wound culture is Enterococcus faecalis vital signs Vital Sign Date Time Temp Pulse Resp B/P (MAP) Pulse Ox O2 Delivery O2 Flow Rate FiO2 07/28/24 16:03 95 18 94 07/28/24 13:00 97.9 115/59 (77) 97.9 07/28/24 10:05 Room Air* 0 21 Total Intake and Output 07/27/24 07/27/24 07/28/24 15:00 23:00 07:00 Intake Total 1760 ml 2520 ml Output Total 900 ml 3300 ml Balance 860 ml -780 ml medications Current Medications Medications Dose Ordered Sig/Sandra Route Start Time Stop Time Status Last Admin Dose Admin Ondansetron HCl 4 mg Q4HP PRN IV 07/02/24 23:15 07/13/24 20:21 4 MG Nitroglycerin 0.4 mg Q5MINP PRN SL 07/02/24 23:15 Acetaminophen 650 mg Q6HP PRN GT 07/03/24 12:30 Hold 07/04/24 03:53 650 MG Enoxaparin Sodium 40 mg DAILY SC 07/04/24 10:00 07/28/24 10:17 40 MG Pantoprazole Sodium 40 mg DAILY IV 07/12/24 13:45 07/28/24 10:16 40 MG Propofol 100 ml @ 2.22 mls/hr Q24H IV 07/13/24 08:00 Cancel Sodium Chloride 10 ml QSHIFT@10,22 IV 07/14/24 22:00 07/28/24 10:16 10 ML Diagnostic Test (Pha) 1 strip ACHS 07/18/24 07:00 07/28/24 14:05 1 STRIP Insulin Human Regular HS SC 07/18/24 22:00 07/27/24 21:49 6 UNITS Insulin Human Regular AC SC 07/18/24 07:00 07/28/24 14:09 12 UNITS Dextrose 50 ml UD PRN IV 07/18/24 06:30 Acetaminophen/ Hydrocodone Bitart 1 tab Q6HPRN PRN PO 07/18/24 11:30 07/28/24 06:15 1 TAB Budesonide 0.5 mg BID PRN NEB 07/21/24 15:30 Hold Enteral Nutritional Formula 240 ml TIDWM PO 07/21/24 18:00 07/27/24 17:20 240 ML Alprazolam 0.25 mg Q8HP PRN PO 07/21/24 16:45 Docusate Sodium 100 mg BID PO 07/21/24 22:00 07/28/24 10:16 100 MG Magnesium Oxide 400 mg DAILY PO 07/22/24 10:00 07/28/24 10:16 400 MG Zinc Sulfate 220 mg DAILY PO 07/22/24 10:00 07/28/24 10:16 220 MG Ascorbic Acid 500 mg BID PO 07/21/24 22:00 07/28/24 10:16 500 MG Midodrine 10 mg TID@0600,1200,1800 PO 07/22/24 13:45 07/28/24 12:27 10 MG Sodium Chloride 1,000 ml @ 60 mls/hr [id number] IV 07/23/24 07:30 07/27/24 17:29 60 MLS/HR Insulin Glargine 15 units BID@0700,2200 SC 07/23/24 22:00 07/28/24 05:42 15 UNITS Lorazepam 1 mg QHSP PRN PO 07/24/24 15:30 Temazepam 30 mg HSPRN PRN PO 07/25/24 13:45 07/27/24 21:44 30 MG Levalbuterol HCl 0.625 mg Q8HP NEB 07/26/24 22:00 07/28/24 16:03 0.625 MG objective General alert and oriented HEENT: Atraumatic Neck: No swelling Lungs: decreased breath sounds Cardiovascular: S2 heard no murmur Abdomen: Soft nontender, no organomegaly, nondistended Neuro: Alert and oriented, generalized weakness. skin multiple wounds : has decub and wounds also on feet Psych: Normal mood and affect laboratory and microbiology Laboratory Tests 07/28/24 09:26 Test 07/28/24 09:26 Range/Units Serum Glucose 118 H 74-106 mg/dL Assessment/Plan Patient is a 49 [id number] with Hyponatremia due to BActrim ( antibiotics side effects) Sepsis with septic shock : improved Hypotension improved Hyperkalemia ( due to Bactrim) Decub ulcers MSSA pneumonia DKA resolved acute hypoxic respiratory failure Recommendations Off Bactrim, hyponatremia and hyperkalemia possibly secondary to Bactrim; improved Patient has received prolonged course of antibiotics with vancomycin followed by levofloxacin and Bactrim hence more than adequately treated for MSSA pneumonia off IV micafungin, urine is colonized secondary to Jesus catheter Continue to monitor Patient has pulmonary edema, consider gentle diuresis Continue wound care for sacral decubitus ulcer, frequent turn and offloading Thank you for opportunity to co manage the patient. Dietary Evaluation Review Comments: 1) If GI is preferred route consider Nepro @ 45 ml/hr goal rate as tolerated 2) If pt remains NPO >7 days consider TPN to meet at least 75% of estimated needs 3) Advance pt diet when medically feasible to a CCHO 60g, Renal diet modified per CLOTH CHECKER recommendations 4) Continue current plan of care Expected Outcomes/Goals: 1. Pt will consume >75% of estimated needs within 2-3 days Plan discussed with: CIRO Gonzales MD Jul 28, 2024 16:14
--- NOTE | 2024-07-28 19:58 | DVHPN2 ---
Progress Note - Dictate Date Seen: Jul 28, 2024 Medical Necessity Reason Pt with a Central, PICC or Fol: Yes The following are medically ne: Jesus Catheter Reason for jesus catheter: Strict I&O Subjective Patient seen and examined at bedside. On room air. Overnight events reviewed. vital signs Vital Sign Date Time Temp Pulse Resp B/P (MAP) Pulse Ox O2 Delivery O2 Flow Rate FiO2 07/28/24 17:15 98.4 101 19 111/57 (75) 96 98.4 07/28/24 10:05 Room Air* 0 21 Total Intake and Output 07/27/24 07/27/24 07/28/24 15:00 23:00 07:00 Intake Total 1760 ml 2520 ml Output Total 900 ml 3300 ml Balance 860 ml -780 ml medications Current Medications Medications Dose Ordered Sig/Sandra Route Start Time Stop Time Status Last Admin Dose Admin Ondansetron HCl 4 mg Q4HP PRN IV 07/02/24 23:15 07/13/24 20:21 4 MG Nitroglycerin 0.4 mg Q5MINP PRN SL 07/02/24 23:15 Acetaminophen 650 mg Q6HP PRN GT 07/03/24 12:30 Hold 07/04/24 03:53 650 MG Enoxaparin Sodium 40 mg DAILY SC 07/04/24 10:00 07/28/24 10:17 40 MG Pantoprazole Sodium 40 mg DAILY IV 07/12/24 13:45 07/28/24 10:16 40 MG Propofol 100 ml @ 2.22 mls/hr Q24H IV 07/13/24 08:00 Cancel Sodium Chloride 10 ml QSHIFT@10,22 IV 07/14/24 22:00 07/28/24 10:16 10 ML Diagnostic Test (Pha) 1 strip ACHS 07/18/24 07:00 07/28/24 16:42 1 STRIP Insulin Human Regular HS SC 07/18/24 22:00 07/27/24 21:49 6 UNITS Insulin Human Regular AC SC 07/18/24 07:00 07/28/24 14:09 12 UNITS Dextrose 50 ml UD PRN IV 07/18/24 06:30 Acetaminophen/ Hydrocodone Bitart 1 tab Q6HPRN PRN PO 07/18/24 11:30 07/28/24 17:22 1 TAB Budesonide 0.5 mg BID PRN NEB 07/21/24 15:30 Hold Enteral Nutritional Formula 240 ml TIDWM PO 07/21/24 18:00 07/28/24 16:35 240 ML Alprazolam 0.25 mg Q8HP PRN PO 07/21/24 16:45 Docusate Sodium 100 mg BID PO 07/21/24 22:00 07/28/24 10:16 100 MG Magnesium Oxide 400 mg DAILY PO 07/22/24 10:00 07/28/24 10:16 400 MG Zinc Sulfate 220 mg DAILY PO 07/22/24 10:00 07/28/24 10:16 220 MG Ascorbic Acid 500 mg BID PO 07/21/24 22:00 07/28/24 10:16 500 MG Midodrine 10 mg TID@0600,1200,1800 PO 07/22/24 13:45 07/28/24 18:14 10 MG Sodium Chloride 1,000 ml @ 60 mls/hr [id number] IV 07/23/24 07:30 07/27/24 17:29 60 MLS/HR Insulin Glargine 15 units BID@0700,2200 SC 07/23/24 22:00 07/28/24 05:42 15 UNITS Lorazepam 1 mg QHSP PRN PO 07/24/24 15:30 Temazepam 30 mg HSPRN PRN PO 07/25/24 13:45 07/27/24 21:44 30 MG Levalbuterol HCl 0.625 mg Q8HP NEB 07/26/24 22:00 07/28/24 16:03 0.625 MG objective Gen.: Patient lying in bed in no apparent distress. Breathing on room air. Head: Normocephalic, atraumatic. Eyes: EOMI/PERRLA. Ears: Normal hearing. Normal anatomy. Neck/trachea: Trachea midline, supple. Nose: Normal external anatomy. Mouth: Moist mucous membranes. Chest: Decreased air entry bilaterally. No wheezing or rhonchi. Cardiovascular: Positive S1, positive S2. Regular rate and rhythm. Abdomen: Positive bowel sounds in all 4 quadrants. Soft, non-tender, non- distended. : Deferred. Rectal: Deferred. Skin: Warm, dry. Intact. Extremities: 2+ radial pulses bilaterally. No lower extremity edema. Neuro: Awake, alert, oriented x3. No gross motor or sensory deficits. Cranial nerves II through XII intact. Gait not assessed. laboratory and microbiology Laboratory Tests 07/28/24 09:26 Test 07/28/24 09:26 Range/Units Serum Glucose 118 H 74-106 mg/dL Assessment/Plan Impression: Acute hypoxic respiratory failure, improving Diabetic ketoacidosis, improved Acute kidney injury Cachexia with a BMI of 18.8 Pseudohyponatremia due to hyperglycemia Buttock wound: Enterococcus faecalis UTI: Yeast. Pneumonia, Stenotrophomonas maltophilia and Staphylococcus aureus Events: Off O2 this AM, breathing on room air. No respiratory distress. Off Levophed since 6:30 AM on 07/25. Continue midodrine TID Monitor blood pressures. Incentive spirometry PT evaluation. Accu-Cheks, glycemic control Wound care Social work consult - home health for PT and wound care Disposition per hospitalist. Labs and imaging reviewed Plan: On room air IS Bronchodilators Pulmicort BID Antibiotics Pressors as necessary for hemodynamic support. Titrate to keep SBP above 90 mmHg. On midodrine. Completed micafungin course. Maintain euvolemia. Monitor renal function Monitor electrolytes, supplement as necessary Potassium supplementation Pain control/anxiolytic PRN Avoid oversedation Nutritional supplementation with Glucerna. Accu-Cheks, ISS Labs and imaging reviewed GI/DVT prophylaxis. Prognosis: Guarded given multiple comorbidities. Rest of plan per hospitalist and other consultants. Thank you Dr Saucedo for allowing me to participate in this patient's care. Further recommendations will depend on patient's clinical course. Please do not hesitate to contact me if you have any questions or concerns. This medical document was created using an electronic medical record system with [employer] ([employer]) dictation system. Although this document has been carefully reviewed, there may still be some phonetic and typographical errors. These areas are purely typographical due to imperfections of the software programs, and do not reflect any compromise in the patient's medical care. Dietary Evaluation Review Comments: 1) If GI is preferred route consider Nepro @ 45 ml/hr goal rate as tolerated 2) If pt remains NPO >7 days consider TPN to meet at least 75% of estimated needs 3) Advance pt diet when medically feasible to a CCHO 60g, Renal diet modified per SPORTS PSYCHOLOGIST recommendations 4) Continue current plan of care Expected Outcomes/Goals: 1. Pt will consume >75% of estimated needs within 2-3 days Plan discussed with: Patient, Other (RN Don) NADER ALLEN MD Jul 28, 2024 19:58
[2024-07-29 01:00] VITALS: BP 131/73; PULSE 95; RESP 20; TEMP 98.9; O2SAT 96
[2024-07-29 05:00] VITALS: BP 117/72; PULSE 88; RESP 18; TEMP 98.4; O2SAT 95
[2024-07-29 08:00] VITALS: PULSE 79; PULSE 88; RESP 18; O2SAT 95
--- NOTE | 2024-07-29 13:16 | DVHPN2 ---
Progress Note - Dictate Date Seen: Jul 29, 2024 Medical Necessity Reason Pt with a Central, PICC or Fol: Yes The following are medically ne: Jesus Catheter Reason for jesus catheter: Strict I&O Subjective Patient was seen and evaluated. He is awake and responsive, alert and oriented x4. Patient in bed with breathing unlabored on room air. No S/S of distress/SOB or pain. Antibiotics history Zosyn 07/03 Unasyn 07/13 to 07/14 Cefepime 07/03 to 07/09 Levofloxacin 07/09 to 07/13 (4-5 days) Vancomycin 07/03 to 07/09 ( 6 days) IV Bactrim 07/13-07/23 IV micafungin 07/15 to 07/23 Culture history 07/02 sputum culture grew Staphylococcus aureus (MSSA), Klebsiella pneumoniae ( Ramires sensitive)and Citrobacter 07/03 urine culture from Jesus grew E coli and Enterococcus faecalis 07/03 blood culture grew Staph hominis MRSA nasal screen negative 07/05 wound culture from foot grew MSSA and Streptococcus group 07/08: Staphylococcus aureus and stenotrophomonas maltophilia 07/19 wound culture is Enterococcus faecalis vital signs Vital Sign Date Time Temp Pulse Resp B/P (MAP) Pulse Ox O2 Delivery O2 Flow Rate FiO2 07/29/24 05:00 98.4 88 18 117/72 (87) 95 98.4 07/28/24 22:50 Room Air 0.0 07/28/24 22:50 21 Total Intake and Output 07/28/24 07/28/24 07/29/24 15:00 23:00 07:00 Intake Total 900 ml 1250 ml Output Total 750 ml Balance 900 ml 500 ml medications Current Medications Medications Dose Ordered Sig/Sandra Route Start Time Stop Time Status Last Admin Dose Admin Ondansetron HCl 4 mg Q4HP PRN IV 07/02/24 23:15 07/13/24 20:21 4 MG Nitroglycerin 0.4 mg Q5MINP PRN SL 07/02/24 23:15 Acetaminophen 650 mg Q6HP PRN GT 07/03/24 12:30 Hold 07/04/24 03:53 650 MG Enoxaparin Sodium 40 mg DAILY SC 07/04/24 10:00 07/29/24 09:16 40 MG Pantoprazole Sodium 40 mg DAILY IV 07/12/24 13:45 07/29/24 09:15 40 MG Propofol 100 ml @ 2.22 mls/hr Q24H IV 07/13/24 08:00 Cancel Sodium Chloride 10 ml QSHIFT@10,22 IV 07/14/24 22:00 07/29/24 09:16 10 ML Diagnostic Test (Pha) 1 strip ACHS 07/18/24 07:00 07/29/24 06:26 1 STRIP Insulin Human Regular HS SC 07/18/24 22:00 07/28/24 22:02 4 UNITS Insulin Human Regular AC SC 07/18/24 07:00 07/29/24 06:27 2 UNITS Dextrose 50 ml UD PRN IV 07/18/24 06:30 Acetaminophen/ Hydrocodone Bitart 1 tab Q6HPRN PRN PO 07/18/24 11:30 07/29/24 01:43 1 TAB Budesonide 0.5 mg BID PRN NEB 07/21/24 15:30 Hold Enteral Nutritional Formula 240 ml TIDWM PO 07/21/24 18:00 07/29/24 09:17 240 ML Alprazolam 0.25 mg Q8HP PRN PO 07/21/24 16:45 Docusate Sodium 100 mg BID PO 07/21/24 22:00 07/29/24 09:16 100 MG Magnesium Oxide 400 mg DAILY PO 07/22/24 10:00 07/29/24 09:16 400 MG Zinc Sulfate 220 mg DAILY PO 07/22/24 10:00 07/29/24 09:16 220 MG Ascorbic Acid 500 mg BID PO 07/21/24 22:00 07/29/24 09:16 500 MG Midodrine 10 mg TID@0600,1200,1800 PO 07/22/24 13:45 07/29/24 06:26 10 MG Sodium Chloride 1,000 ml @ 60 mls/hr [id number] IV 07/23/24 07:30 07/28/24 22:07 60 MLS/HR Insulin Glargine 15 units BID@0700,2200 SC 07/23/24 22:00 07/29/24 06:26 15 UNITS Lorazepam 1 mg QHSP PRN PO 07/24/24 15:30 Temazepam 30 mg HSPRN PRN PO 07/25/24 13:45 07/27/24 21:44 30 MG Levalbuterol HCl 0.625 mg Q8HP NEB 07/26/24 22:00 07/28/24 22:50 0.625 MG objective General alert and oriented HEENT: Atraumatic Neck: No swelling Lungs: decreased breath sounds Cardiovascular: S2 heard no murmur Abdomen: Soft nontender, no organomegaly, nondistended Neuro: Alert and oriented, generalized weakness. skin multiple wounds : has decub and wounds also on feet Psych: Normal mood and affect laboratory and microbiology Laboratory Tests 07/28/24 09:26 Test 07/28/24 09:26 Range/Units Serum Glucose 118 H 74-106 mg/dL Assessment/Plan Patient is a 49 [id number] with Hyponatremia due to BActrim ( antibiotics side effects) Sepsis with septic shock : improved Hypotension improved Hyperkalemia ( due to Bactrim) Decub ulcers MSSA pneumonia DKA resolved acute hypoxic respiratory failure Recommendations Off Bactrim, hyponatremia and hyperkalemia possibly secondary to Bactrim; improved Patient has received prolonged course of antibiotics with vancomycin followed by levofloxacin and Bactrim hence more than adequately treated for MSSA pneumonia off IV micafungin, urine is colonized secondary to Jesus catheter Continue to monitor Patient has pulmonary edema, consider gentle diuresis Continue wound care for sacral decubitus ulcer, frequent turn and offloading stable for ID stand point Thank you for opportunity to co manage the patient. Dietary Evaluation Review Comments: 1) If GI is preferred route consider Nepro @ 45 ml/hr goal rate as tolerated 2) If pt remains NPO >7 days consider TPN to meet at least 75% of estimated needs 3) Advance pt diet when medically feasible to a CCHO 60g, Renal diet modified per TOOL MAINTENANCE TECHNICIAN recommendations 4) Continue current plan of care Expected Outcomes/Goals: 1. Pt will consume >75% of estimated needs within 2-3 days Plan discussed with: CIRO Gonzales MD Jul 29, 2024 13:16
[2024-07-29] MEDS ORDERED: METF-370 PO (14:46)
[2024-07-29] MEDS ORDERED: HYDR-4902 PO (14:46)
[2024-07-29] MEDS ORDERED: INSLANTI SC (14:46)
[2024-07-29] MEDS ORDERED: MAGN400T40 PO (14:46)
[2024-07-29] MEDS ORDERED: DAPA1TAB4 PO (14:46)
[2024-07-29] MEDS ORDERED: ZINC220C10 PO (14:50)
--- NOTE | 2024-07-29 14:50 | DVHDS2 ---
Discharge Summary Date of Admission Jul 02, 2024 at 23:15 Date of Discharge: Jul 29, 2024 Labs/Diagnostic Data: Laboratory Results Test 07/29/24 06:16 07/28/24 09:26 07/19/24 03:40 07/18/24 03:20 POC Glucose 142 mg/dl (70-106) White Blood Count 7.0 10^3/uL (4.4-10.8) Red Blood Count 3.28 10^6/uL (4.5-5.90) Hemoglobin 9.4 g/dL (13.5-17.5) Hematocrit 29.0 % (41.0-53.0) Mean Corpuscular Volume 88.5 fL (80.0-100.0) Mean Corpuscular Hemoglobin 28.7 pg (28.0-32.0) Mean Corpuscular Hemoglobin Concent 32.4 g/dL (32.0-36.0) Red Cell Distribution Width 13.9 % (11.8-14.3) Platelet Count 535 10^3/uL (140-450) Mean Platelet Volume 6.1 fL (6.9-10.8) Neutrophils (%) (Auto) 77.0 % (37.0-80.0) Lymphocytes (%) (Auto) 12.1 % (10.0-50.0) Monocytes (%) (Auto) 7.6 % (0.0-12.0) Eosinophils (%) (Auto) 2.3 % (0.0-7.0) Basophils (%) (Auto) 1.0 % (0.0-2.0) Neutrophils # (Auto) 5.4 10 ^3/uL (1.6-8.6) Lymphocytes # (Auto) 0.8 10 ^3/uL (0.4-5.4) Monocytes # (Auto) 0.5 10 ^3/uL (0-1.3) Eosinophils # (Auto) 0.2 10 ^3/uL (0-0.8) Basophils # (Auto) 0.1 10 ^3/uL (0-0.2) Nucleated Red Blood Cells 0.0 % Sodium Level 139 mmol/L (136-145) Potassium Level 3.8 mmol/L (3.5-5.1) Chloride Level 108 mmol/L (98-107) Carbon Dioxide Level 30 mmol/L (20-31) Anion Gap 1 (5-15) Blood Urea Nitrogen 7 mg/dL (9-23) Creatinine 0.48 mg/dL (0.700-1.30) Glomerular Filtration Rate Calc 127 mL/min (>90) BUN/Creatinine Ratio 14.6 (10.0-20.0) Serum Glucose 118 mg/dL (74-106) Calcium Level 8.6 mg/dL (8.7-10.4) Magnesium Level 1.8 mg/dL (1.6-2.6) Total Bilirubin 0.2 mg/dL (0.2-1.0) Aspartate Amino Transferase (AST) 16 U/L (13-40) Alanine Aminotransferase (ALT) 17 U/L (7-40) Alkaline Phosphatase 99 U/L (46-116) Total Protein 6.0 g/dL (5.7-8.2) Albumin 2.7 g/dL (3.2-4.8) Prothrombin Time 11.6 sec (9.3-11.8) Prothrombin Time INR 1.10 (0.9-1.15) Activated Partial Thromboplast Time 34.3 SEC (24.5-34.5) Differential Total Cells Counted 100.0 (100) Neutrophils % (Manual) 80 (37.0-80.0) Band Neutrophils % (Manual) 0 Lymphocytes % (Manual) 14 (10.0-50.0) Monocytes % (Manual) 5 (0-12) Eosinophils % (Manual) 1 (0-7) Basophils % (Manual) 0 (0.0-2.0) Metamyelocytes % (manual) 0 Myelocytes % (Manual) 0 Promyelocytes % (Manual) 0 Blast Cells % (Manual) 0 Reactive Lymphocytes 0 Platelet Estimate Adequate Phosphorus Level 2.3 mg/dL (2.4-5.1) Test 07/15/24 03:35 07/14/24 07:55 07/13/24 15:24 07/13/24 11:25 Triglycerides Level 113 mg/dL (< 150) Blood Gas Specimen Type Arterial Blood Gas Sample Site Right radial Blood Gas Patient Temperature 37.0 Arterial Blood Date Drawn [id number] Arterial Blood pH 7.514 (7.350-7.450) Arterial Blood Partial Pressure CO2 39.7 mmHg (35.0-48.0) Arterial Blood Partial Pressure O2 97.7 mmHg (83.0-108.0) Arterial Blood HCO3 31.3 mmol/L (21.0-28.0) Arterial Blood Oxygen Saturation 97.6 % (94.0-98.0) Arterial Blood Base Excess 7.7 mmol/L (-2.0-3.0) Arterial Blood Oxyhemoglobin 96.9 % (94.0-98.0) Arterial Blood Carboxyhemoglobin 0.4 % (0.5-1.5) Arterial Blood Methemoglobin 0.3 % (0.0-1.5) Serge Test Yes Blood Gas Total Hemoglobin 11.50 g/dL (13.5-17.5) Blood Gas Set Respiration Rate 12.0 Blood Gas Modality Mask - bipap FiO2 % 90.0 Blood Gas EPAP 5 Blood Gas IPAP 12 Blood Gas Critical Value Read Back yes Blood Gas Notified Whom Richa santana md Blood Gas Notified Time [id number] Blood Gas Notified By Forestry Hunter niurka key Blood Gas Liter Flow 15.00 Test 07/12/24 10:22 07/10/24 03:01 07/09/24 10:33 07/08/24 20:00 Blood Gas Spontaneous Rate 22 Blood Gas Spontaneous Tidal Volume 559 Smudge Cells 1 /100 WBC Blood Gas Pressure Support 8 Blood Gas PEEP or CPAP 5.0 Blood Gas Comments Test 07/08/24 10:00 07/08/24 03:31 07/07/24 06:15 07/04/24 10:38 Vancomycin Level Trough 11.7 ug/mL (5-10) Large Platelets Few Anisocytosis (manual) Slight Blood Gas Tidal Volume 500.0 Stool Occult Blood Positive (Negative) Stool Occult Blood Sample #3 (Negative) Test 07/04/24 03:42 07/03/24 16:51 07/03/24 10:06 07/02/24 23:08 Cholesterol Level 117 mg/dL (< 200) LDL Cholesterol 38 mg/dL (< 100) HDL Cholesterol 42 mg/dL (40-59) Lipase 56 U/L (12-53) Thyroid Stimulating Hormone (TSH) 0.38 uIU/mL (0.55-4.78) Urine Opiates Screen Neg (NEGATIVE) Urine Fentanyl Screen Neg (NEGATIVE) Urine Barbiturates Screen Neg (NEGATIVE) Urine Phencyclidine Screen Neg (NEGATIVE) Urine Amphetamines Screen Neg (NEGATIVE) Urine Benzodiazepines Screen Pos (NEGATIVE) Urine Cocaine Screen Neg (NEGATIVE) Urine Cannabinoids Screen Neg (NEGATIVE) Hemoglobin A1c > 14.0 % A1C (<5.7) Urine Color Light-yellow (Yellow) Urine Clarity Clear (Clear) Urine pH 5.0 (5.0-9.0) Urine Specific [place] 1.025 (1.001-1.035) Urine Protein Negative (Negative) Urine Ketones 4+ (Negative) Urine Blood Negative /uL (Negative) Urine Nitrite Negative (Negative) Urine Bilirubin Negative (Negative) Urine Urobilinogen Normal mg/dL (Negative) Urine Leukocyte Esterase Negative /uL (Negative) Urine RBC <1 /hpf (0 - 3) Urine WBC 1 /hpf (0 - 3) Urine Squamous Epithelial Cells None seen /hpf (<5) Urine Bacteria None seen /hpf (None Seen) Urine Glucose 4+ mg/dL (Normal) Test 07/02/24 21:15 07/02/24 20:57 Venous Blood pH 7.179 (7.320-7.430) Venous Blood pCO2 at Patient Temp 17.8 mmHg (38.0-54.0) Venous Blood pO2 at Patient Temp 70.7 mmHg (23.0-48.0) Venous Blood HCO3 6.5 mmol/L (22.0-29.0) Venous Blood Base Excess -19.6 mmol/L (-2.0-3.0) Serum Osmolality 354 mOsm/kg (278-298) Lactic Acid Level 1.0 mmol/L (0.4-2.0) Beta-Hydroxybutyric Acid > 4.500 mmol/L (< 0.4) Other Laboratory Tests 07/28/24 09:26 Brief Hx & Hospital Course: Final diagnoses: DKA, resolved DM, uncontrolled Acute hypoxic respiratory failure s/p intubation on mechanical ventilator ZOYA Sepsis w septic shock Hypernatremia Fever B feet ulcers Thrombocytopenia due to sepsis, improved Sacral decub ulcer 49-year-old male who was admitted for DKA with sepsis and acute kidney injury, he had respiratory failure requiring intubation He was treated for the DKA with IV fluids insulin and supportive treatments Sepsis was treated with IV antibiotics He had several wounds on his feet The cultures showed multiple organisms, treated with multiple broad-spectrum antibiotics He is respiratory status worsened and he had a bronchoscopy, he was treated for the respiratory failure aggressively with IV antibiotics and after that with Lasix due to pulmonary edema Overall he was improving daily and he was extubated but remained very weak He developed a sacral ulcer which was also treated and was given antibiotics for the culture that showed Enterococcus faecalis He was hypotensive on Levophed, he was started on midodrine, eventually he came off the Levophed and was downgraded to the floor Physical therapy worked with him He is improving He is ambulating now with physical therapy He also was given Lantus and was controlling his diabetes Overall he is doing better He can be discharged home on Lantus and metformin and Farxiga Multivitamins with zinc and magnesium we will be given Dieterich for pain Follow up with primary care physician Home health was arranged for physical therapy and wound care Condition at Discharge: Stable Final Diagnosis/Problems List DKA, resolved DM, uncontrolled Acute hypoxic respiratory failure, resolved s/p intubation on mechanical ventilator ZOYA Sepsis w septic shock Hypernatremia B feet ulcers Thrombocytopenia due to sepsis, improved Sacral decub ulcer Generalized weakness Discharge Disposition: Home with Health Services SNF Discharge Will this Physician continue t: No Discharge Instruct/Medications Diet: Consistent carbohydrate Activity: No Restrictions, As Tolerated Medications: Lantus 30 units daily Metformin 500 mg twice a day Farxiga 10 mg daily Magnesium oxide 400 mg daily Zinc 220 mg daily Discharge Statement: "Patient was advised to return to the ER or call 911 if any headaches, dizziness, shortness of breath, chest pain, abdominal pain, bleeding, fevers, or worsening of medical condition. Patient was counseled about treatment plan, medications, possible side effects, patientverbalized understanding. All questions were answered to the best of my ability. This discharge took greater then 30 minutes in planning, reviewing documentation, counseling the patient, and discussing with other team members." ASSESSMENT ASSESSMENT Assessment DKA, resolved DM, uncontrolled Acute hypoxic respiratory failure, resolved s/p intubation on mechanical ventilator ZOYA Sepsis w septic shock Hypernatremia B feet ulcers Thrombocytopenia due to sepsis, improved Sacral decub ulcer Generalized weakness Date of Service: Jul 29, 2024 Billing Provider: MEHRAN GUERRERO MD Common Visit Codes: 43078-CQP/OBS DISCH DAY >30min MEHRAN GUERRERO MD Jul 29, 2024 14:50
[2024-07-29 16:26] VITALS: BP 127/82; PULSE 92; RESP 14; TEMP 36.9; O2SAT 97
[2024-07-29 16:39] VITALS: BP 110/59; PULSE 99; RESP 14; TEMP 98.8; O2SAT 94
--- NOTE | 2024-07-29 18:55 | DVHPN2 ---
Progress Note - Dictate Date Seen: Jul 29, 2024 Medical Necessity Reason Pt with a Central, PICC or Fol: Yes The following are medically ne: Jesus Catheter Reason for jesus catheter: Strict I&O Subjective Patient seen and examined at bedside. On room air. Overnight events reviewed. vital signs Vital Sign Date Time Temp Pulse Resp B/P (MAP) Pulse Ox O2 Delivery O2 Flow Rate FiO2 07/29/24 16:39 98.8 99 14 110/59 (76) 94 98.8 07/29/24 08:00 Room Air* 0 21 Total Intake and Output 07/28/24 07/28/24 07/29/24 15:00 23:00 07:00 Intake Total 900 ml 1250 ml Output Total 750 ml Balance 900 ml 500 ml medications Current Medications Medications Dose Ordered Sig/Sandra Route Start Time Stop Time Status Last Admin Dose Admin Ondansetron HCl 4 mg Q4HP PRN IV 07/02/24 23:15 07/13/24 20:21 4 MG Nitroglycerin 0.4 mg Q5MINP PRN SL 07/02/24 23:15 Acetaminophen 650 mg Q6HP PRN GT 07/03/24 12:30 Hold 07/04/24 03:53 650 MG Enoxaparin Sodium 40 mg DAILY SC 07/04/24 10:00 07/29/24 09:16 40 MG Pantoprazole Sodium 40 mg DAILY IV 07/12/24 13:45 07/29/24 09:15 40 MG Propofol 100 ml @ 2.22 mls/hr Q24H IV 07/13/24 08:00 Cancel Sodium Chloride 10 ml QSHIFT@10,22 IV 07/14/24 22:00 07/29/24 09:16 10 ML Diagnostic Test (Pha) 1 strip ACHS 07/18/24 07:00 07/29/24 18:05 1 STRIP Insulin Human Regular HS SC 07/18/24 22:00 07/28/24 22:02 4 UNITS Insulin Human Regular AC SC 07/18/24 07:00 07/29/24 18:09 3 UNITS Dextrose 50 ml UD PRN IV 07/18/24 06:30 Acetaminophen/ Hydrocodone Bitart 1 tab Q6HPRN PRN PO 07/18/24 11:30 07/29/24 01:43 1 TAB Budesonide 0.5 mg BID PRN NEB 07/21/24 15:30 Hold Enteral Nutritional Formula 240 ml TIDWM PO 07/21/24 18:00 07/29/24 13:28 240 ML Alprazolam 0.25 mg Q8HP PRN PO 07/21/24 16:45 Docusate Sodium 100 mg BID PO 07/21/24 22:00 07/29/24 09:16 100 MG Magnesium Oxide 400 mg DAILY PO 07/22/24 10:00 07/29/24 09:16 400 MG Zinc Sulfate 220 mg DAILY PO 07/22/24 10:00 07/29/24 09:16 220 MG Ascorbic Acid 500 mg BID PO 07/21/24 22:00 07/29/24 09:16 500 MG Midodrine 10 mg TID@0600,1200,1800 PO 07/22/24 13:45 07/29/24 18:05 10 MG Sodium Chloride 1,000 ml @ 60 mls/hr [id number] IV 07/23/24 07:30 07/28/24 22:07 60 MLS/HR Insulin Glargine 15 units BID@0700,2200 SC 07/23/24 22:00 07/29/24 06:26 15 UNITS Lorazepam 1 mg QHSP PRN PO 07/24/24 15:30 Temazepam 30 mg HSPRN PRN PO 07/25/24 13:45 07/27/24 21:44 30 MG Levalbuterol HCl 0.625 mg Q8HP NEB 07/26/24 22:00 07/28/24 22:50 0.625 MG objective Gen.: Patient lying in bed in no apparent distress. Breathing on room air. Head: Normocephalic, atraumatic. Eyes: EOMI/PERRLA. Ears: Normal hearing. Normal anatomy. Neck/trachea: Trachea midline, supple. Nose: Normal external anatomy. Mouth: Moist mucous membranes. Chest: Decreased air entry bilaterally. No wheezing or rhonchi. Cardiovascular: Positive S1, positive S2. Regular rate and rhythm. Abdomen: Positive bowel sounds in all 4 quadrants. Soft, non-tender, non- distended. : Deferred. Rectal: Deferred. Skin: Warm, dry. Intact. Extremities: 2+ radial pulses bilaterally. No lower extremity edema. Neuro: Awake, alert, oriented x3. No gross motor or sensory deficits. Cranial nerves II through XII intact. Gait not assessed. laboratory and microbiology Laboratory Tests 07/28/24 09:26 Test 07/28/24 09:26 Range/Units Serum Glucose 118 H 74-106 mg/dL Assessment/Plan Impression: Acute hypoxic respiratory failure, improving Diabetic ketoacidosis, improved Acute kidney injury Cachexia with a BMI of 18.8 Pseudohyponatremia due to hyperglycemia Buttock wound: Enterococcus faecalis UTI: Yeast. Pneumonia, Stenotrophomonas maltophilia and Staphylococcus aureus Events: Breathing on room air. No respiratory distress. Incentive spirometry Antitussive for cough. Accu-Cheks, ISS Wound care Plan to arrange home health for PT and wound care Disposition per hospitalist. Labs and imaging reviewed Plan: On room air IS Bronchodilators Pulmicort BID Antibiotics Pressors as necessary for hemodynamic support - Off pressors since 07/25. Titrate to keep SBP above 90 mmHg. Midodrine - monitor BP. Completed micafungin course. Maintain euvolemia. Monitor renal function Monitor electrolytes, supplement as necessary Potassium supplementation Pain control/anxiolytic PRN Avoid oversedation Nutritional supplementation with Glucerna. Accu-Cheks, ISS Labs and imaging reviewed GI/DVT prophylaxis. Prognosis: Guarded given multiple comorbidities. Rest of plan per hospitalist and other consultants. Thank you Dr Saucedo for allowing me to participate in this patient's care. Further recommendations will depend on patient's clinical course. Please do not hesitate to contact me if you have any questions or concerns. This medical document was created using an electronic medical record system with [employer] dictation system. Although this document has been carefully reviewed, there may still be some phonetic and typographical errors. These areas are purely typographical due to imperfections of the software programs, and do not reflect any compromise in the patient's medical care. Dietary Evaluation Review Comments: 1) If GI is preferred route consider Nepro @ 45 ml/hr goal rate as tolerated 2) If pt remains NPO >7 days consider TPN to meet at least 75% of estimated needs 3) Advance pt diet when medically feasible to a CCHO 60g, Renal diet modified per BASKET TURNER recommendations 4) Continue current plan of care Expected Outcomes/Goals: 1. Pt will consume >75% of estimated needs within 2-3 days Plan discussed with: Patient, Other (NADER Toussaint MD Jul 29, 2024 18:55
--- NOTE | 2024-08-26 11:55 | DVHNC2 ---
Procedure - Bronchoscopy procedure note: Indications: Increase ET tube secretions, Left lower lobe atelectasis, Possible mucous plugging. DATE OF SERVICE: 07/08/24 Medicines: See REAL ESTATE ASSESSOR notes. Complications: None Procedure: Patient medications and allergies reviewed. The risks and benefits of the procedure and the sedation options and risk were discussed with the patient's healthcare proxy. All questions were answered and informed consent was obtained. Patient identification and proposed procedure were verified prior to the procedure by the physician, and a nurse, and the respiratory therapist in ICU room. The heart rate, respiratory rate, oxygen saturations, blood pressure, adequacy of pulmonary ventilation, and response to care were monitored throughout the procedure. The physical status of the patient was reassessed after the procedure. After obtaining informed consent, the bronchoscope was introduced through the endotracheal tube and advanced into the trachea bronchial tree of both lungs. The procedure was accomplished without difficulty. The patient tolerated the procedure well. Findings: The trachea is in normal caliber. The nat is sharp. The tracheobronchial tree of the right lung was examined to at least the first subsegmental level. The bronchial mucosa and anatomy in the right lung are normal. There are no endobronchial lesions. There was copious whitish secretions from right main stem bronchus onward throughout R1-R10. Right middle lobe (RML) Bronchoalveolar lavage (BAL) obtained. RML BAL sent for gram stain and culture. The left upper lobe, lingula, and left lower lobe were examined to at least the first subsegmental level. Bronchial mucosa and anatomy in the left upper lobe and lingula are normal. There were no endobronchial lesions. There was copious whitish secretions from left main stem bronchus onward throughout L1-L10. Mucous plugging removed from L6-L10. There was no active bleeding at the completion of the procedure. Estimated blood loss: Less than 5 mL. Impression: Bilateral lower lobe atelectasis due to mucous plugging Mucous plugging from L6-L10 and R4-R10 RML BAL performed Recommendation: Follow-up RML BAL results. Procedure codes: 55772/68117, bronchoscopy, rigid and flexible, including fluoroscopic guidance, one performed; with bronchial endobronchial broncho- alveolar lavage, single or multiple sites NADER ALLEN MD Aug 26, 2024 11:55
== END 2024-07-29 19:05 | disposition home health service (06) | DRG 710 ==
LOC: EDBD 20:46 → ER 20:46 → OVERFLOW 23:15 → EDBD 23:15 → OVERFLOW 23:24 → ICU WEST 07-03 19:33 → TELE-WESTW 07-26 02:52
PROVIDERS: ADMIT Internal Medicine Geriatric Medicine; ATTEND Internal Medicine Geriatric Medicine
PROC: 5A1955Z Respiratory Ventilation, Greater than 96 Consecutive Hours (ICD-10-PCS; principal; 2024-07-03)
PROC: 0BH17EZ Insertion of Endotracheal Airway into Trachea, Via Natural or Artificial Opening (ICD-10-PCS; 2024-07-03)
PROC: 06HY33Z Insertion of Infusion Device into Lower Vein, Percutaneous Approach (ICD-10-PCS; 2024-07-03)
PROC: 0QBN0ZZ Excision of Right Metatarsal, Open Approach (ICD-10-PCS; 2024-07-05)
PROC: 0QBP0ZZ Excision of Left Metatarsal, Open Approach (ICD-10-PCS; 2024-07-05)
PROC: 0B9D8ZX Drainage of Right Middle Lung Lobe, Via Natural or Artificial Opening Endoscopic, Diagnostic (ICD-10-PCS; 2024-07-08)
PROC: 5A09357 Assistance with Respiratory Ventilation, Less than 24 Consecutive Hours, Continuous Positive Airway Pressure (ICD-10-PCS; 2024-07-12)
PROC: 5A09357 Assistance with Respiratory Ventilation, Less than 24 Consecutive Hours, Continuous Positive Airway Pressure (ICD-10-PCS; 2024-07-13)
PROC: 02HV33Z Insertion of Infusion Device into Superior Vena Cava, Percutaneous Approach (ICD-10-PCS; 2024-07-14)
PROC: B548ZZA Ultrasonography of Superior Vena Cava, Guidance (ICD-10-PCS; 2024-07-14)
PROC: 5A09357 Assistance with Respiratory Ventilation, Less than 24 Consecutive Hours, Continuous Positive Airway Pressure (ICD-10-PCS; 2024-07-14)
PROC: 0JB70ZZ Excision of Back Subcutaneous Tissue and Fascia, Open Approach (ICD-10-PCS; 2024-07-19)
DX: A41.01 Sepsis due to Methicillin susceptible Staphylococcus aureus (principal); J96.01 Acute respiratory failure with hypoxia; G93.41 Metabolic encephalopathy; J15.211 Pneumonia due to Methicillin susceptible Staphylococcus aureus; E11.10 Type 2 diabetes mellitus with ketoacidosis without coma; R57.1 Hypovolemic shock; R65.21 Severe sepsis with septic shock; E44.0 Moderate protein-calorie malnutrition; E87.1 Hypo-osmolality and hyponatremia; E87.5 Hyperkalemia; G47.00 Insomnia, unspecified; E87.0 Hyperosmolality and hypernatremia; E11.22 Type 2 diabetes mellitus with diabetic chronic kidney disease; E78.1 Pure hyperglyceridemia; L97.529 Non-pressure chronic ulcer of other part of left foot with unspecified severity; R63.2 Polyphagia; B96.20 Unspecified Escherichia coli [E. coli] as the cause of diseases classified elsewhere; T36.8X5A Adverse effect of other systemic antibiotics, initial encounter; B95.2 Enterococcus as the cause of diseases classified elsewhere; S91.301A Unspecified open wound, right foot, initial encounter; X58.XXXA Exposure to other specified factors, initial encounter; S91.302A Unspecified open wound, left foot, initial encounter; I12.9 Hypertensive chronic kidney disease with stage 1 through stage 4 chronic kidney disease, or unspecified chronic kidney disease; N18.32 Chronic kidney disease, stage 3b; L97.519 Non-pressure chronic ulcer of other part of right foot with unspecified severity; D69.59 Other secondary thrombocytopenia; Z68.1 Body mass index [BMI] 19.9 or less, adult; Z99.11 Dependence on respirator [ventilator] status; Z91.199 Patient's noncompliance with other medical treatment and regimen due to unspecified reason; Z79.84 Long term (current) use of oral hypoglycemic drugs; Z79.899 Other long term (current) drug therapy; Y92.89 Other specified places as the place of occurrence of the external cause; Y93.89 Activity, other specified; Y99.8 Other external cause status
CPT/HCPCS: 36415; 36569; 36600; 70450; 70491; 71045; 71260; 73620; 73630; 74177; 76937; 80048; 80053; 80061; 80202; 80307; 81001; 82010; 82270; 82805; 82962; 83036; 83605; 83690; 83735; 83930; 84100; 84132; 84443; 84478; 85007; 85025; 85027; 85610; 85730; 87040; 87070; 87075; 87077; 87081; 87086; 87088; 87186; 87205; 92507; 92610; 93005; 93306; 94002; 94003; 94640; 94660; 94667; 94668; 96365; 96375; 97110; 97116; 97163; 97530; 99291; G0378; J0690; J1100; J1450; J1815; J1956; J2003; J2248; J2250; J2405; J2470; J2704; J3430; J3480; J3490; J7060; J7131

== ENCOUNTER 2025-02-06 17:14 | Inpatient (IN) | payer MEDICAID ==
[~2025-02-06] VITALS: Ht 182.9 cm; Wt 89.7 kg
[~2025-02-06 17:14] MED LIST: DAPA1TAB4 PO; GABA-339 PO; GLIP5TAB21 PO; HYDR-4902 PO; INSLANTI SC; MAGN400T40 PO; METF-370 PO; ZINC220C10 PO
--- NOTE | 2025-02-06 17:43 | ED.PDOC ---
History of Present Illness(SKN HPI Comments 49 y.o male with PMHx of DM presents to the ED for an evaluation of a left foot wound x 1 week. Patient's left food exhibits diffused erythema with significant swelling. The third toe appears necrotic with discoloration and multiple superficial lacerations or fissures present on the dorsal aspect of the foot. 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 Patient denies any fever, chills, or numbness to his foot. Patient denies substance, alcohol or tobacco use. Chief Complaint: Extremity Swelling Time Seen by MD: 17:31 Primary Care Provider: UNKNOWN History of Present Illness: Nurses Notes, Medications, Allergies Allergies: Coded Allergies: NO KNOWN ALLERGIES (Unverified , 07/02/24) Home Meds Active Scripts Zinc Sulfate (Zinc) 220 Mg Cap, 220 MG PO DAILY, #30 CAP Prov:MEHRAN GUERRERO MD 07/29/24 Hydrocodone-Acetaminophen (Hydrocodone Bitartrate/AC 5-325 mg) 1 Tab Tab, 1 TAB PO Q6HP PRN, #20 TAB Prov:MEHRAN GUERRERO MD 07/29/24 Magnesium Oxide (MAGNESIUM OXIDE) 400 Mg Tab, 1 TAB PO DAILY, #30 TAB 0 Refills Prov:MEHRAN GUERRERO MD 07/29/24 Metformin Hydrochloride (Metformin Hcl) 500 Mg Tab, 1 TAB PO BID, #60 TAB 3 Refills Prov:MEHRAN GUERRERO MD 07/29/24 Dapagliflozin Propanediol (Farxiga) 10 Mg Tab, 10 MG PO DAILY for 30 Days, #30 TAB Prov:MEHRAN GUERRERO MD 07/29/24 Insulin Glargine (Lantus) 100 Unit/Ml Inj, 30 UNIT SC DAILY for 30 Days, #1000 UNITS Prov:MEHRAN GUERRERO MD 07/29/24 Reported Medications Glipizide (Glipizide) 5 Mg Tab, 5 MG PO DAILY for 30 Days, MG 07/04/24 Metformin Hydrochloride (Metformin Hcl) 500 Mg Tab, 500 MG PO IBID for 30 Days, MG 07/04/24 Dapagliflozin Propanediol (Farxiga) 10 Mg Tab, 10 MG PO DAILY, TAB 10/20/24 Gabapentin (Gabapentin) 600 Mg Tab, 600 MG PO BID for 30 Days, MG 07/04/24 Information Source: Patient Mode of Arrival: Ambulatory Severity: Moderate Timing: Weeks (1) Duration: Since onset Location: Foot Mechanism: Spontaneous Onset Condition of Object: None History of: Diabetes Associated Signs and Symptoms: Redness, Swelling Past Medical History PAST MEDICAL HISTORY: DM Surgical History: Denies all surgeries Family History Family History: Reviewed,noncontributory to illness Social History Smoker: Non-Smoker Alcohol: Denies ETOH Use Drugs: Denies Drug Use Lives In: Home Constitutional: denies: chills, diaphoresis, fatigue, fever, malaise, sweats, weakness, others EENTM: denies: blurred vision, double vision, ear bleeding, ear discharge, ear drainage, ear pain, ear ringing, eye pain, eye redness, hearing loss, mouth pain, mouth swelling, nasal discharge, nose bleeding, nose congestion, nose pain, photophobia, tearing, throat pain, throat swelling, voice changes, others Respiratory: denies: cough, hemoptysis, orthopnea, SOB at rest, shortness of breath, SOB with excertion, stridor, wheezing, others Cardiovascular: denies: chest pain, dizzy spells, diaphoresis, Dyspnea on exertion, edema, irregular heart beat, left arm pain, lightheadedness, palpitations, PND, syncope, others Gastrointestinal: denies: abdomen distended, abdominal pain, blood streaked bowels, constipated, diarrhea, dysphagia, difficulty swallowing, hematemesis, melena, nausea, poor appetite, poor fluid intake, rectal bleeding, rectal pain, vomiting, others Genitourinary: denies: burning, dysuria, flank pain, frequency, hematuria, incontinence, penile discharge, penile sore, pain, testicle pain, testicle swelling, urgency, others Neurological: denies: dizziness, fainting, headache, left sided numbness, left sided weakness, numbness, paresthesia, pre-existing deficit, right sided numbness, right sided weakness, seizure, speech problems, tingling, tremors, weakness, others Musculoskeletal: denies: back pain, gout, joint pain, joint swelling, muscle pain, muscle stiffness, neck pain, others Integumetry: reports: wounds (left foot redness and necrotic ); denies: bruises, change in color, change in hair/nails, dryness, laceration, lesions, lumps, rash, others Allergic/Immunocompromised: denies: Difficulty Healing, Frequent Infections, Hives, Itching, others Hematologic/Lymphatic: denies: anemia, blood clots, easy bleeding, easy bruising, swollen glands, others Endocrine: denies: excessive hunger, excessive sweating, excessive thirst, excessive urination, flushing, intolerance to cold, intolerance to heat, unexplained weight gain, unexplained weight loss, others Psychiatric: denies: anxiety, bipolar disorder, depression, hopeless, panic disorder, schizophrenia, sleepless, suicidal, others All Other Systems: Reviewed and Negative Physical Exam General Appearance: Moderate Distress HEENT: Normal ENT Inspection, Pharynx Normal, TMs Normal Neck: Full Range of Motion, Non-Tender, Normal, Normal Inspection Respiratory: Chest Non-Tender, Lungs Clear, No Accessory Muscle Use, No Respiratory Distress, Normal Breath Sounds Cardiovascular: No Edema, No JVD, No Murmur, No Gallop, Normal Peripheral Pulses, Regular Rate/Rhythm Breast Exam: Deferred Gastrointestinal: No Organomegaly, Non Tender, No Pulsatile Mass, Normal Bowel Sounds, Soft Genitalia: Deferred Pelvic: Deferred Rectal: Deferred Extremities: No calf tenderness, Normal capillary refill, No pedal edema Musculoskeletal : Apperance: Normal Neurologic: Alert, precision machinist II-XII nml as Tested, No Motor Deficits, Normal Affect, Normal Mood, No Sensory Deficits Cerebellar Function: Normal Reflexes: Normal Skin: Dry, Normal Color, Warm, Other (Left foot with redness and swelling especially around the 3rd digit of the left foot. There is no sign of any drainage. There is tenderness to the area) Lymphatic: No Adenopathy Was a procedure done? Was a procedure done?: No Differential Diagnosis (INTG) Differential Diagnosis: Cellulitis Differential Diagnosis: Osteomyelitis Differential Diagnosis: Cellulitis Abscess: Felon, Gas Gangrene X-Ray, Labs, Meds, VS Vital Signs Date Time Temp Pulse Resp B/P (MAP) Pulse Ox O2 Delivery O2 Flow Rate FiO2 02/06/25 17:35 99.2 113 16 96/60 (72) 95 99.2 02/06/25 17:35 99.2 113 16 96/60 (72) 95 99.2 Lab Test 02/06/25 17:35 02/06/25 17:33 Range/Units POC Glucose 101 70-106 mg/dl White Blood Count 18.2 H 4.4-10.8 10^3/uL Red Blood Count 4.65 4.5-5.90 10^6/uL Hemoglobin 13.4 L 13.5-17.5 g/dL Hematocrit 41.0 41.0-53.0 % Mean Corpuscular Volume 88.1 80.0-100.0 fL Mean Corpuscular Hemoglobin 28.9 28.0-32.0 pg Mean Corpuscular Hemoglobin Concent 32.7 32.0-36.0 g/dL Red Cell Distribution Width 16.1 H 11.8-14.3 % Platelet Count 279 140-450 10^3/uL Mean Platelet Volume 7.5 6.9-10.8 fL Neutrophils (%) (Auto) 85.5 H 37.0-80.0 % Lymphocytes (%) (Auto) 8.4 L 10.0-50.0 % Monocytes (%) (Auto) 5.1 0.0-12.0 % Eosinophils (%) (Auto) 0.4 0.0-7.0 % Basophils (%) (Auto) 0.6 0.0-2.0 % Neutrophils # (Auto) 15.6 H 1.6-8.6 10 ^3/uL Lymphocytes # (Auto) 1.5 0.4-5.4 10 ^3/uL Monocytes # (Auto) 0.9 0-1.3 10 ^3/uL Eosinophils # (Auto) 0.1 0-0.8 10 ^3/uL Basophils # (Auto) 0.1 0-0.2 10 ^3/uL Nucleated Red Blood Cells 0.0 % Erythrocyte Sedimentation Rate 50 H 0-20 mm/hr Sodium Level 133 L 136-145 mmol/L Potassium Level 4.2 3.5-5.1 mmol/L Chloride Level 98 98-107 mmol/L Carbon Dioxide Level 23 20-31 mmol/L Anion Gap 12 5-15 Blood Urea Nitrogen 13 9-23 mg/dL Creatinine 1.02 0.700-1.30 mg/dL Glomerular Filtration Rate Calc 90 >90 mL/min BUN/Creatinine Ratio 12.7 10.0-20.0 Serum Glucose 114 H 74-106 mg/dL Lactic Acid Level 1.3 0.4-2.0 mmol/L Calcium Level 10.1 8.7-10.4 mg/dL EXAMINATION: CT CT L FOOT WO CONTRAST IMPRESSION: 1. Soft tissue gas is seen between the 2nd and 3rd digits suggestive of infec tious / inflammatory process. 2. Fat stranding and phlegmonous changes are seen throughout the left foot which likely reflects sequelae of cellulitis IV Hep-Lock was established. The lactic acid level is within normal limits The white blood cell count is elevated at 18.2 The ESR is elevated at 50 The chemistry panel is within normal limits At this time, the patient is being admitted to the hospitalist The patient was started on clindamycin IV piggyback The patient is being admitted Images Reviewed?: Images reviewed and evaluated by me Time of 1ST Reevaluation: 17:38 Reevaluation 1ST: Unchanged Patient Education/Counseling: Diagnosis, Treatment, Prognosis Family Education/Counseling: Diagnosis, Treatment, Prognosis Departure 1 Departure Time of Disposition: 20:14 Impression: Primary Impression: Cellulitis of left foot Disposition: ADMITTED INPATIENT Admit to: Med Surg Condition: Fair Critical Care Note Critical Care Time?: Yes Stability Stability form required: Yes Unstable for transfer: ED Physician Assesment (Clinical assesment) Heart Score Heart Score: Heart Score Response (Comments) Value History N/A 0 EKG N/A 0 Age N/A 0 Risk Factors N/A 0 Troponin N/A 0 Total 0 I personally scribed for TAD SMITH MD ([email or web address]) on 02/06/25 at 17:43. Electronically submitted by Elise Fortune ([employer]). I personally scribed for TAD SMITH MD ([email or web address]) on 02/06/25 at 18:52. Electronically submitted by Elise Fortune ([employer]). TAD SMITH MD February 06, 2025 17:43
[2025-02-06 18:01] LABS: Basophils # (auto) 0.1 10 ^3/uL (0-0.2); Basophils % (auto) 0.6 % (0.0-2.0); Eosinophils # (auto) 0.1 10 ^3/uL (0-0.8); Eosinophils % (auto) 0.4 % (0.0-7.0); Hemoglobin 13.4 g/dL (13.5-17.5); Lymphocytes # (auto) 1.5 10 ^3/uL (0.4-5.4); Lymphocytes % (auto) 8.4 % (10.0-50.0); Mean Corpuscular Hemoglobin 28.9 pg (28.0-32.0); Mean Corpuscular Hgb Conc. 32.7 g/dL (32.0-36.0); Mean Corpuscular Volume 88.1 fL (80.0-100.0); Monocytes # (auto) 0.9 10 ^3/uL (0-1.3); Monocytes % (auto) 5.1 % (0.0-12.0); Neutrophils # (auto) 15.6 10 ^3/uL (1.6-8.6); Neutrophils % (auto) 85.5 % (37.0-80.0); Platelet Count (auto) 279 10^3/uL (140-450); Red Blood Cells 4.65 10^6/uL (4.5-5.90); Red Cell Distribution Width 16.1 % (11.8-14.3); White Blood Cell 18.2 10^3/uL (4.4-10.8)
[2025-02-06 18:25] LABS: Potassium 4.2 mmol/L (3.5-5.1)
[2025-02-06 18:28] LABS: Anion Gap 12 (5-15)
[2025-02-06 18:33] LABS: BUN/Creatinine Ratio 12.7 (10.0-20.0)
[2025-02-06 18:39] LABS: Blood Urea Nitrogen 13 mg/dL (9-23); Calcium 10.1 mg/dL (8.7-10.4); Carbon Dioxide 23 mmol/L (20-31); Chloride 98 mmol/L (98-107); Glucose 114 mg/dL (74-106); Sodium 133 mmol/L (136-145)
--- NOTE | 2025-02-06 18:44 | DVH ---
EXAMINATION: CT CT L FOOT WO CONTRAST INDICATION: pain and infection COMPARISON: None TECHNIQUE: CT of the left foot was performed without contrast. Volume transverse images were obtained reconstructed in multiple planes using bone and soft tissue algorithms. CONTRAST: None DLP: 192 mGy-cm FINDINGS: The alignment is normal. The joint spaces are normal. There is no fracture, dislocation, or focal osseous lesions. Fat stranding and phlegmonous changes are seen throughout the left leg which likely reflects sequelae of cellulitis. Soft tissue gas is seen between the 2nd and 3rd digits suggestive of infectious / inflammatory proces s IMPRESSION: 1. Soft tissue gas is seen between the 2nd and 3rd digits suggestive of infectious / inflammatory pro cess. 2. Fat stranding and phlegmonous changes are seen throughout the left foot which likely reflects sequ elae of cellulitis
[2025-02-06 19:22] LABS: Erythrocyte Sedimentation Rate 50 mm/hr (0-20)
[2025-02-06] MEDS ORDERED: VANCOMYCIN PER PHARMACY 0 MG IV SCH (20:45)
[2025-02-06] MEDS ORDERED: DEXTROSE (50%) 50ML SYRG IV PRN (21:00)
[2025-02-06] MEDS ORDERED: VANCOMYCIN 1.5GM/250ML 250 ML IV ONE (21:00)
[2025-02-06] MEDS ORDERED: DEXTROSE (50%) 50ML SYRG IV ONE (21:00)
[2025-02-06] MEDS ORDERED: ACCU-CHEK COMFORT CURVE STRIP VI ONE (21:00)
[2025-02-06] MEDS ORDERED: InsuLIN REG 1unit/0.01ml Soln (100units/ml) SC ONE (21:00)
[2025-02-06] MEDS: PANTOPRAZOLE 40 MG/10 ML VIAL INJ IV ONE (21:05)
[2025-02-06] MEDS: SODIUM CHLORIDE 0.9% 500 ML IV ONE (21:05)
[2025-02-06] MEDS: SODIUM CHLORIDE 0.9% 1,000 ML IV ONE ×2 (21:05→22:39)
[2025-02-06] MEDS: CLINDAMYCIN 600MG IV 50 ML IV ONE (21:05)
[2025-02-06] MEDS: ONDANSETRON HCL 4 MG/2 ML VIAL IV PRN (21:06)
[2025-02-06] MEDS: ACETAMINOPHEN 500 MG TAB or CAP PO ONE (21:06)
--- NOTE | 2025-02-06 21:13 | DVHHP2 ---
History of Present Illness History of Present Illness Patient is 49 years old male with past medical history of diabetes mellitus came with a complaint of left foot wound. As per patient he has been having left foot wound for last 1 week, it started with the left foot swelling and erythema gradually got worse and starting having skin color changes especially on the 3rd toe on the left. Patient also having some discharge from the left foot for the same duration. Patient denied any pain. As per patient he was wearing the same shoes that was putting pressure of the left foot but never change it. Patient denied any chest pain or shortness of breath, dysuria, acute joint redness to other joint. Initial lab workup revealed leukocytosis WBC 18.2, neutrophil 85.5, ESR 50, sodium 133, HGB A1c 8.2. CT left foot significant for cellulitis. Soft tissue gas is seen between the 2nd and 3rd digits suggestive of infectious / inflammatory process. Fat stranding and phlegmonous changes are seen throughout the left foot which likely reflects sequelae of cellulitis. Patient was admitted at [facility] in July 2024 due to DKA, was intubated for hypoxic respiratory failure. Past Medical History Diabetes mellitus Past Surgical History No surgical history Past Social History Lives with , denies smoking/alcoholism/drug abuse Home meds Lantus, gabapentin, Farxiga, metformin Review of Systems Review of Systems Allergy- NKDA Patient was seen today at the bedside. Cardiovascular- deny acute chest pain or shortness of breath or cough or palpitation Respiratory denies cough or short of breath or wheezing Gastrointestinal- denies any rectal bleeding, Musculoskeletal-denies acute joint swelling or tenderness or redness Neurological- denies acute dysarthria, dysphagia, change in vision Psychiatry- denies depression or SI or HI Skin- denies acute rash or purpura Allergies: Coded Allergies: NO KNOWN ALLERGIES (Unverified , 07/02/24) Medications Current Medications Medications Dose Ordered Sig/Sandra Route Start Time Stop Time Status Last Admin Dose Admin Sodium Chloride 10 ml Q8HR IV 02/06/25 22:00 Sodium Chloride 1,000 ml @ 120 mls/hr Q8H20M IV 02/06/25 20:45 Acetaminophen/ Hydrocodone Bitart 1 tab Q4HP PRN PO 02/06/25 20:45 Ondansetron HCl 4 mg Q4HP PRN IV 02/06/25 20:45 Enoxaparin Sodium 40 mg DAILY SC 02/07/25 10:00 Acetaminophen 650 mg Q6HP PRN PO 02/06/25 20:45 Cefepime HCl 50 ml @ 12.5 mls/hr Q8HR IV 02/07/25 06:00 Vancomycin HCl 0 ml @ 0 mls/hr UD IV 02/06/25 20:45 UNV Pantoprazole Sodium 40 mg DAILY IV 02/07/25 10:00 Diagnostic Test (Pha) 1 strip ACHS 02/06/25 22:00 Insulin Human Regular ACHS SC 02/06/25 22:00 Dextrose 50 ml UD PRN IV 02/06/25 21:00 Exam Vital Signs Vital Signs Date Time Temp Pulse Resp B/P (MAP) Pulse Ox O2 Delivery O2 Flow Rate FiO2 02/06/25 17:35 99.2 113 16 96/60 (72) 95 99.2 Exam General examination- awake, alert, oriented HEENT- PEERLA, no acute nasal discharge Cardiovascular- S1-S2 audible, rate and rhythm regular, no murmur Respiratory- CTAB, no wheeze or rhonchi Gastrointestinal-nontender, bowel sound+. Nondistended Musculoskeletal-no acute joint swelling or tenderness or redness Lower extremity- left leg edematous++, left foot swollen, edematous, erythema, skin color changes of the type 2, discharged from in bed in 1st and 2nd toe and 3rd and 4 toe Neurological- cranial nerves intact, no acute dysarthria or dysphagia Psychiatry- denies depression or SI or HI Skin- no acute rash or purpura Labs/Xrays Labs Test 02/06/25 20:55 02/06/25 17:35 02/06/25 17:33 Range/Units POC Glucose 101 70-106 mg/dl White Blood Count 18.2 H 4.4-10.8 10^3/uL Red Blood Count 4.65 4.5-5.90 10^6/uL Hemoglobin 13.4 L 13.5-17.5 g/dL Hematocrit 41.0 41.0-53.0 % Mean Corpuscular Volume 88.1 80.0-100.0 fL Mean Corpuscular Hemoglobin 28.9 28.0-32.0 pg Mean Corpuscular Hemoglobin Concent 32.7 32.0-36.0 g/dL Red Cell Distribution Width 16.1 H 11.8-14.3 % Platelet Count 279 140-450 10^3/uL Mean Platelet Volume 7.5 6.9-10.8 fL Neutrophils (%) (Auto) 85.5 H 37.0-80.0 % Lymphocytes (%) (Auto) 8.4 L 10.0-50.0 % Monocytes (%) (Auto) 5.1 0.0-12.0 % Eosinophils (%) (Auto) 0.4 0.0-7.0 % Basophils (%) (Auto) 0.6 0.0-2.0 % Neutrophils # (Auto) 15.6 H 1.6-8.6 10 ^3/uL Lymphocytes # (Auto) 1.5 0.4-5.4 10 ^3/uL Monocytes # (Auto) 0.9 0-1.3 10 ^3/uL Eosinophils # (Auto) 0.1 0-0.8 10 ^3/uL Basophils # (Auto) 0.1 0-0.2 10 ^3/uL Nucleated Red Blood Cells 0.0 % Erythrocyte Sedimentation Rate 50 H 0-20 mm/hr Sodium Level 133 L 136-145 mmol/L Potassium Level 4.2 3.5-5.1 mmol/L Chloride Level 98 98-107 mmol/L Carbon Dioxide Level 23 20-31 mmol/L Anion Gap 12 5-15 Blood Urea Nitrogen 13 9-23 mg/dL Creatinine 1.02 0.700-1.30 mg/dL Glomerular Filtration Rate Calc 90 >90 mL/min BUN/Creatinine Ratio 12.7 10.0-20.0 Serum Glucose 114 H 74-106 mg/dL Lactic Acid Level 1.3 0.4-2.0 mmol/L Calcium Level 10.1 8.7-10.4 mg/dL Assessment/Plan Assessment/Plan Assessment and plan Sepsis likely due to left foot cellulitis Left foot swelling, rule out osteomyelitis, rule out DVT Bluish discoloration change in the left 3rd toe, out peripheral arterial disease, rule out peripheral arterial disease Uncontrolled Diabetes mellitus type 2 HGB A1c 8.2 Left foot swelling, rule out DVT Suspected diabetic neuropathy CT left foot significant for cellulitis. Soft tissue gas is seen between the 2nd and 3rd digits suggestive of infectious / inflammatory process. Fat stranding and phlegmonous changes are seen throughout the left foot which likely reflects sequelae of cellulitis. HGB A1c 8.2 Doppler study of the left lower extremity negative for DVT Plan Ordered blood culture, urine culture, wound culture Ordered podiatry consult Ordered wound consult Pending arterial Doppler of the bilateral lower extremity to rule out peripheral arterial disease Ordered cefepime and vancomycin Ordered MRI of the left foot to rule out osteomyelitis Ordered IV normal saline Ordered insulin sliding scale Ordered pain medication and other PRN Zofran Goals of care, Code status ; discussed with >15 minutes PUD prophylaxis: Pantoprazole DVT prophylaxis: Lovenox Plan discussed with Dr. Bush , nursing staff, Total time spent on patient evaluation, chart review, assessment and plan, discussion discussion >35 minutes Plan discussed with: Patient, Spouse, Other (RN) My Orders Orders - ZAKI SRINIVASAN RESIDENT Procedure Category Date Status Time Admit ADMIT 02/06/25 Transmitted 20:40 Code Status CODE 02/06/25 Transmitted 20:40 Sodium Chloride Lock PHA 02/06/25 In Process (Saline Lock Ns) 22:00 Sodium Chloride 0.9% PHA 02/06/25 In Process 20:45 Hydrocodone-Acet PHA 02/06/25 In Process 5/325mg Tab ([place] 20:45 Ondansetron Hcl PHA 02/06/25 In Process (Zofran) 20:45 Enoxaparin Sodium PHA 02/07/25 In Process (Lovenox) 10:00 Complete Blood Count LAB 02/07/25 Verified 04:00 Comprehensive LAB 02/07/25 Verified Metabolic Panel 04:00 Acetaminophen Tablet PHA 02/06/25 In Process (Tylenol Tablet) 20:45 Notify Of Changes ELI 02/06/25 In Process From Base 20:40 Resident Care Coordinator For ELI 02/06/25 In Process 24 Hours 20:40 Cefepime 1gm/ 50ml PHA 02/06/25 In Process (Maxipime 1gm/50ml) 20:45 Wound Culture W/ Gs CHARLIE 02/06/25 Logged 20:42 Urine Bacterial CHARLIE 02/06/25 Logged Culture 20:42 Mrsa Screen CHARLIE 02/06/25 Logged 20:42 C-Reactive Protein LAB 02/06/25 In Process 20:42 Thyroid Stimulating LAB 02/06/25 In Process Hormone 20:42 Lt Lower Dvt US 02/06/25 Logged 20:42 Vancomycin Per PHA 02/06/25 Pending Pharmacy 20:45 Chest Xray 1 View XY 02/06/25 Logged 20:46 Urinalysis LAB 02/06/25 Logged 20:46 Drug Screen LAB 02/06/25 Logged 20:46 Blood Alcohol LAB 02/06/25 In Process 20:46 Covid19 Antigen Anita LAB 02/06/25 Logged Rapid Influenza A&B LAB 02/06/25 Logged 20:46 Cefepime 1gm/ 50ml PHA 02/07/25 In Process (Maxipime 1gm/50ml) 06:00 Pantoprazole PHA 02/07/25 In Process (Protonix) 10:00 Vancomycin PHA 02/06/25 In Process 1.5gm/250ml 21:00 Magnesium LAB 02/06/25 In Process 20:50 *Podiatry Consult CONS 02/06/25 Transmitted Musson(Dvmg) 20:50 Sodium Chloride 0.9% PHA 02/06/25 In Process 21:00 Electrocardigram EKG 02/06/25 Logged 20:52 Bilat Low Ext Art US 02/07/25 Logged Duplex 10:00 Mri L Foot Wo Contrast MRI 02/06/25 Logged 20:52 * Wound Consult CONS 02/06/25 Transmitted Date of Service: February 06, 2025 Billing Provider: BARB BUSH MD Common Visit Codes: 42854-SAEZFUX INP/OBS CARE (HIGH) Secondary Visit Codes: 31054-[id number] CARE PLAN 30 MINUTES ZAKI SRINIVASAN RESIDENT February 06, 2025 21:13
--- NOTE | 2025-02-06 21:38 | DVH ---
Bilateral lower extremity venous duplex Clinical History: Left Foot swelling Comparison: None Technique: Duplex Doppler evaluation of the deep venous systems of left lower extremity from the common femoral veins to the popliteal veins including color Doppler and spectral/pulsed waveform analysis was perfo rmed. Findings: LEFT SIDE: The common femoral vein demonstrates appropriate compressibility and waveform variability . There is compressibility/patency of the great saphenous vein at the proximal thigh . The femoral vein demonstrates appropriate compressibility and waveform variability . The deep femoral vein demonstrates appropriate compressibility and waveform variability . The popliteal vein demonstrates appropriate compressibility and waveform variability . There is normal compressibility at the tibioperoneal trunk. Multiple lymph nodes in the left inguinal area. Largest measures 3.2 x 1.3 by 2.4 cm Impression: 1. No left femoropopliteal venous thrombosis. HS:Y
[2025-02-06 22:24] VITALS: PULSE 106; RESP 16; O2SAT 90
[2025-02-06] MEDS: CEFEPIME 1GM/ 50ML 50 ML IV ONE (22:39)
[2025-02-06] MEDS: SODIUM CHLOR 0.9% PF (SALINE LOCK) 10ML VIAL/SYR IV SCH (22:40)
[2025-02-06] MEDS: ACETAMINOPHEN 325 MG TAB PO PRN (22:47)
[2025-02-06] MEDS: ACCU-CHEK COMFORT CURVE STRIP VI SCH (22:53)
[2025-02-06] MEDS: InsuLIN REG 1unit/0.01ml Soln (100units/ml) SC SCH (22:53)
--- NOTE | 2025-02-06 23:00 | DVH ---
CHEST RADIOGRAPH Indication: PNA Technique: Single frontal view of the chest was obtained Comparison: XY CHEST PORTABLE on DOS: 07/17/24, XY CHEST PORTABLE on DOS: 07/16/24, XY CHEST PORTABLE o n DOS: 07/15/24 FINDINGS: Lines and Tubes: None Lungs: Much improved multifocal airspace disease when compared to July of 2024 Pleura: No effusion. No pneumothorax. Cardiomediastinal contours: Unremarkable Bones: No acute osseous abnormality. IMPRESSION: 1. No acute cardiopulmonary disease. 2. Improved scattered airspace disease when compared with July of 2024. HS:Y
[2025-02-07] MEDS: SODIUM CHLORIDE 0.9% 1,000 ML IV SCH (01:00)
[2025-02-07] MEDS: CEFEPIME 1GM/ 50ML 50 ML IV SCH (05:12)
[2025-02-07 05:16] LABS: Basophils # (auto) 0.1 10 ^3/uL (0-0.2); Basophils % (auto) 0.4 % (0.0-2.0); Eosinophils # (auto) 0.1 10 ^3/uL (0-0.8); Eosinophils % (auto) 0.7 % (0.0-7.0); Hematocrit 40.5 % (41.0-53.0); Hemoglobin 12.6 g/dL (13.5-17.5); Lymphocytes # (auto) 1.7 10 ^3/uL (0.4-5.4); Lymphocytes % (auto) 10.2 % (10.0-50.0); Mean Corpuscular Hemoglobin 28.7 pg (28.0-32.0); Mean Corpuscular Hgb Conc. 31.2 g/dL (32.0-36.0); Mean Corpuscular Volume 91.8 fL (80.0-100.0); Monocytes # (auto) 1.2 10 ^3/uL (0-1.3); Monocytes % (auto) 6.9 % (0.0-12.0); Neutrophils # (auto) 13.7 10 ^3/uL (1.6-8.6); Neutrophils % (auto) 81.8 % (37.0-80.0); Platelet Count (auto) 276 10^3/uL (140-450); Red Blood Cells 4.41 10^6/uL (4.5-5.90); Red Cell Distribution Width 16.6 % (11.8-14.3); White Blood Cell 16.7 10^3/uL (4.4-10.8)
[2025-02-07 05:32] LABS: Alanine Aminotransferase 15 U/L (7-40); Albumin 3.8 g/dL (3.2-4.8); Alkaline Phosphatase 62 U/L (46-116); Anion Gap 11 (5-15); BUN/Creatinine Ratio 17.8 (10.0-20.0); Blood Urea Nitrogen 13 mg/dL (9-23); Calcium 8.9 mg/dL (8.7-10.4); Carbon Dioxide 22 mmol/L (20-31); Chloride 107 mmol/L (98-107); Magnesium 2.3 mg/dL (1.6-2.6); Potassium 3.9 mmol/L (3.5-5.1); Sodium 140 mmol/L (136-145); Total Protein 6.7 g/dL (5.7-8.2)
[2025-02-07 05:37] LABS: Aspartate Aminotransferase 9 U/L (13-40); Glucose 72 mg/dL (74-106)
[2025-02-07 05:48] LABS: Bilirubin, Total 0.6 mg/dL (0.2-1.0)
[2025-02-07 09:41] VITALS: PULSE 94; RESP 20; O2SAT 95
[2025-02-07] MEDS: ENOXAPARIN SOD 40 MG/0.4 ML SYRINGE SC SCH (09:57)
[2025-02-07] MEDS: PANTOPRAZOLE 40 MG/10 ML VIAL INJ IV SCH (09:57)
--- NOTE | 2025-02-07 10:03 | DVHPNRES ---
Progress Note Date Seen: February 07, 2025 Resident Creating Document: MADHU REID RESIDENT Has the PT tested + for MRSA If YES, has PT been informed?: No Medical Necessity Reason Pt with a Central, PICC or Fol: No Medical Necessity Reason History of Present Illness Patient is 49 years old male with past medical history of diabetes mellitus came with a complaint of left foot wound. As per patient he has been having left foot wound for last 1 week, it started with the left foot swelling and erythema gradually got worse and starting having skin color changes especially on the 3rd toe on the left. Patient also having some discharge from the left foot for the same duration. Patient denied any pain. As per patient he was wearing the same shoes that was putting pressure of the left foot but never change it. Patient denied any chest pain or shortness of breath, dysuria, acute joint redness to other joint. Initial lab workup revealed leukocytosis WBC 18.2, neutrophil 85.5, ESR 50, sodium 133, HGB A1c 8.2. CT left foot significant for cellulitis. Soft tissue gas is seen between the 2nd and 3rd digits suggestive of infectious / inflammatory process. Fat stranding and phlegmonous changes are seen throughout the left foot which likely reflects sequelae of cellulitis. Patient was admitted at [facility] in July 2024 due to DKA, was intubated for hypoxic respiratory failure. Past Medical History: Diabetes mellitus Past Surgical History: No surgical history Past Social History:Lives with , denies smoking/alcoholism/drug abuse Home meds Lantus, gabapentin, Farxiga, metformin 02/07: This is a 49-year-old male with a past medical history of diabetic diabetes diagnosed about 20 years ago. Patient was actually admitted here in the hospital in July of 2020 and managed for DKA and was intubated. Patient came to the ED yesterday because of left foot swelling and redness and discoloration of his third toe. According to the patient, he noticed swelling on his left toe was driving from [place] to [place] he has a long this under the by the way. Per patient he said he was wearing a closed tight shoe and he realized that his stools were rubbing against each other causing itching and that was the ariella this whole infection. And the wound the swelling just got bigger ulcerating and now forming past. has been taking care and dressing the wound but is not improving but getting worse. Thus prompting this visit to the ED. His diabetes is under controlled. A1C 8.8 AND is currentlyon on Lantus, Farxiga, and metformin. CT showed significant for cellulitis. Soft tissue gas is seen between the 2nd and 3rd digits suggestive of infectious / inflammatory process. Fat stranding and phlegmonous changes are seen throughout the left foot which likely reflects sequelae of cellulitis. MRI pending Subjective Review of Systems Constitutional: Denies fever no chills no feeling of malaise HEENT: Denies headache, ear pain, ear discharges, conjunctivitis, nasal discharge throat pain Cardiovascular: Denies chest pain, palpitation, orthopnea, PND, or pedal edema Respiratory: Denies shortness of breath, cough cough, sputum production, hemoptysis, GI: Denies abdominal pain, nausea, vomiting, diarrhea, hematemesis, hematochezia, : Denies frequency, urgency, hematuria, Endocrine: Denies unintentional weight gain or weight loss, feeling of hot flashes, Jose E: Denies easy bruising, bleeding disorders, epistaxis Musculoskeletal: Denies joint pains, muscle aches Psych: No evidence of depression, rhona, suicidal ideation Objective vital signs Vital Sign Date Time Temp Pulse Resp B/P (MAP) Pulse Ox O2 Delivery O2 Flow Rate FiO2 02/07/25 08:00 95 15 119/67 (84) 93 02/07/25 01:41 98.5 98.5 02/06/25 22:24 Room Air* 0 21 medications Current Medications Medications Dose Ordered Sig/Sandra Route Start Time Stop Time Status Last Admin Dose Admin Sodium Chloride 10 ml Q8HR IV 02/06/25 22:00 02/07/25 05:12 10 ML Sodium Chloride 1,000 ml @ 120 mls/hr Q8H20M IV 02/06/25 20:45 02/07/25 01:19 120 MLS/HR Acetaminophen/ Hydrocodone Bitart 1 tab Q4HP PRN PO 02/06/25 20:45 Ondansetron HCl 4 mg Q4HP PRN IV 02/06/25 20:45 02/06/25 21:06 4 MG Enoxaparin Sodium 40 mg DAILY SC 02/07/25 10:00 Acetaminophen 650 mg Q6HP PRN PO 02/06/25 20:45 02/06/25 22:47 650 MG Vancomycin HCl 0 ml @ 0 mls/hr UD IV 02/06/25 20:45 UNV Pantoprazole Sodium 40 mg DAILY IV 02/07/25 10:00 Diagnostic Test (Pha) 1 strip ACHS 02/06/25 22:00 02/07/25 06:07 1 STRIP Insulin Human Regular ACHS SC 02/06/25 22:00 Dextrose 50 ml UD PRN IV 02/06/25 21:00 Piperacillin Sod/ Tazobactam Sod 100 ml @ 25 mls/hr Q6HR IV 02/07/25 12:00 UNV Examination General Appearance: Well developed male, Alert, Oriented X3, Cooperative, No acute distress HEENT: Atraumatic, PERRLA, EOMI, Mucous membrane moist/pink Respiratory: Clear to auscultation, Normal air movement Cardiovascular: Regular rate, Normal S1, Normal S2, No murmurs, no chest wall tenderness Abdominal: NO distention, no tenderness, bowel sounds present, no scars noted Extremities: Left foot with scars on the dorsum of the foot, swollen foot, with pus drainage, macerated toes. RIGHT FOOT: No signs of infections, Pulse: dorsalis pedis pulse absent Sensation: present bilateral Motor function: intact in right leg Skin: Left foot breakdown: RIGHT no abnormalities noted. Neuro: Normal gait, Normal speech, Strength at 5/5 X4 ext, Normal tone, Sensation intact, Cranial nerves 3-12 NL, Reflexes 2+ Psych/Mental Status: Mental status NL, Mood NL laboratory and microbiology Laboratory Tests 02/07/25 04:46 Test 02/07/25 04:46 Range/Units Serum Glucose 72 L 74-106 mg/dL Problem List/Assessment/Plan Problem List/Assessment/Plan Assessment Sepsis likely due to left foot cellulitis Acute Left foot cellulitis; Acute Osteomylittis of the second toe ( MRI Osteomyelitis in the 2nd proximal and middle phalanx) Bluish discoloration change in the left 3rd toe; Arterial doppler: 20-49% stenosis of the left distal superficial femoral artery based on peak systolic velocity criteria. PAD left leg Diabetes mellitus type2 HGB A1c 8.2 Diabetic neuropathy Negative for DVT Leukocytosis Left distal superficial femoral artery stenosis Plan Zosyn and vancomycin Pending wound and blood culture Pending podiatry evaluation Vascular surgery consult Pending wound care consult Mild insulin sliding scale Pain medication and other PRN Zofran Continue home medications Goal of care discussed for more than 20 minutes: Full code Case and plan discussed with Dr. Vick Plan discussed with: Patient My Orders My Orders Orders - MADHU REID Procedure Category Date Status Time Piperacillin-Tazob PHA 02/07/25 Logged 3.375gm (Zosyn 3.375g 12:00 Piperacillin-Tazob PHA 02/07/25 Logged 3.375gm (Zosyn 3.375g 09:45 Date of Service: February 07, 2025 Billing Provider: PEDRO VICK MD Common Visit Codes: [id number] INP/OBS CARE(HIGH) MADHU REID February 07, 2025 10:03 PEDRO VICK MD February 07, 2025 20:37
[2025-02-07 10:27] LABS: Folate (Folic Acid) 18.38 ng/mL (>5.38)
--- NOTE | 2025-02-07 10:47 | DVH ---
Bilateral Lower Extremity Arterial Duplex Clinical History: Bilateral leg swelling Comparison: None Technique: Duplex Doppler evaluation including color Doppler and spectral/pulsed waveform analysis of the lower extremity arteries was performed. Findings: RIGHT: Peak systolic velocities are less than 150 cm/sec. The waveforms are triphasic with diastolic flow. LEFT: 167 cm/sec in the distal superficial femoral artery. All other Peak systolic velocities are less than 150 cm/sec. The waveforms are monophasic in the dorsalis pedis. IMPRESSION: No hemodynamically significant stenosis based on peak systolic velocity criteria on the right. 20-49% stenosis of the left distal superficial femoral artery based on peak systolic velocity criteri a. Monophasic arterial waveforms in the left dorsalis pedis suggestive of underlying peripheral arterial disease. REFERENCE VALUES, [facility]) vascular Imaging Lab Criteria: Peak systolic velocity rang es (in cm/sec) are as follows: <150 cm/s - <20 % stenosis 150-200 cm/s - 20-49% stenosis 200-300 cm/s - 50-75% stenosis >300 cm/s -> 75% stenosis
[2025-02-07] MEDS: PIPERACILLIN-TAZOB 3.375GM 100 ML IV ONE (11:15)
--- NOTE | 2025-02-07 12:48 | DVH ---
CLINICAL INDICATION: RULE OUT OM COMPARISON: CT CT L FOOT WO CONTRAST on DOS: 02/06/25 TECHNIQUE: Multiplanar, multisequence MRI of the left foot was performed without intravenous contrast . Contrast: None. INTERPRETATION: Bones: There is T1 hypointensity in the 2nd proximal and middle phalanx with corresponding edema, con sistent with osteomyelitis. Mild bone marrow edema noted in the 1st metatarsal head and 1st proximal phalanx, likely related to degenerative changes as there is joint space narrowing of the 1st MTP and 1st interphalangeal joint. No joint effusion. Soft tissues: Dorsal soft tissue edema. No fluid collection. Diffuse edema within the intrinsic mus cles of the foot which may reflect denervation edema or myositis. No high-grade tendon or ligament in jury. IMPRESSION: 1. Osteomyelitis in the 2nd proximal and middle phalanx. 2. Diffuse soft tissue edema which may reflect cellulitis. 3. Edema in the intrinsic muscles of the foot may reflect denervation edema or myositis.
[2025-02-07 13:32] LABS: Urine Bacteria None Seen /hpf (None Seen)
[2025-02-07 13:42] LABS: Urine Blood Negative /uL (Negative); Urine Clarity Clear (Clear); Urine Color Yellow (Yellow); Urine Protein, UAD Negative (Negative); Urine Specific Gravity 1.031 (1.001-1.035); Urine Squamous Epithelial Cell None Seen /hpf (<5); Urine Urobilinogen Normal (Negative); Urine WBC < 1 /HPF (0-3); Urine pH 5.5 (5.0-9.0)
[2025-02-07 14:03] LABS: Amphetamine Screen, Urine Neg (NEGATIVE); Barbiturate Scree,Urine Neg (NEGATIVE); Benzodiazephine Screen, Urine Neg (NEGATIVE); Cannabinoid Screen, Urine Neg (NEGATIVE); Cocaine Screen, Urine Neg (NEGATIVE); Opiate Scree,Urine Neg (NEGATIVE); Phencyclidine Screen, Urine Neg (NEGATIVE)
[2025-02-07] MEDS: PIPERACILLIN-TAZOB 3.375GM 100 ML IV SCH (18:00)
[2025-02-07 20:00] VITALS: PULSE 100; RESP 16; O2SAT 97
[2025-02-07] MEDS: HYDROcodone-ACET 5/325MG TAB PO PRN (20:24)
[2025-02-07] MEDS: VANCOMYCIN 1.5GM/300ML 300 ML IV SCH (20:35)
[2025-02-07 22:00] VITALS: BP 117/69; PULSE 96; RESP 20; TEMP 98.6; O2SAT 96
[2025-02-07 22:01] VITALS: BP 117/69; PULSE 96; RESP 20; TEMP 98.6; O2SAT 96
[2025-02-07 23:28] LABS: COVID19 ANTIGEN SOFIA FIA NEGATIVE (NEGATIVE); Rapid Influenza A Negative (Negative); Rapid Influenza B Negative (Negative)
[2025-02-08 05:00] VITALS: BP 110/61; PULSE 81; RESP 20; TEMP 98.3; O2SAT 95
[2025-02-08 06:14] LABS: Basophils # (auto) 0.1 10 ^3/uL (0-0.2); Basophils % (auto) 0.4 % (0.0-2.0); Eosinophils # (auto) 0.1 10 ^3/uL (0-0.8); Eosinophils % (auto) 0.9 % (0.0-7.0); Hematocrit 35.2 % (41.0-53.0); Hemoglobin 11.4 g/dL (13.5-17.5); Lymphocytes # (auto) 1.4 10 ^3/uL (0.4-5.4); Lymphocytes % (auto) 10.1 % (10.0-50.0); Mean Corpuscular Hemoglobin 28.7 pg (28.0-32.0); Mean Corpuscular Hgb Conc. 32.5 g/dL (32.0-36.0); Mean Corpuscular Volume 88.2 fL (80.0-100.0); Monocytes # (auto) 0.9 10 ^3/uL (0-1.3); Monocytes % (auto) 6.2 % (0.0-12.0); Neutrophils # (auto) 11.6 10 ^3/uL (1.6-8.6); Neutrophils % (auto) 82.4 % (37.0-80.0); Platelet Count (auto) 311 10^3/uL (140-450); Red Blood Cells 3.99 10^6/uL (4.5-5.90); Red Cell Distribution Width 15.8 % (11.8-14.3); White Blood Cell 14.1 10^3/uL (4.4-10.8)
[2025-02-08 06:33] LABS: Potassium 4.1 mmol/L (3.5-5.1); Sodium 142 mmol/L (136-145)
[2025-02-08 06:34] LABS: Anion Gap 13 (5-15); Carbon Dioxide 21 mmol/L (20-31)
[2025-02-08 06:35] LABS: Calcium 8.7 mg/dL (8.7-10.4); Chloride 108 mmol/L (98-107)
[2025-02-08 06:39] LABS: BUN/Creatinine Ratio 15.1 (10.0-20.0); Blood Urea Nitrogen 11 mg/dL (9-23); Glucose 97 mg/dL (74-106)
[2025-02-08 08:00] VITALS: PULSE 91
[2025-02-08 08:56] VITALS: BP 107/65; PULSE 88; RESP 20; TEMP 98.5; O2SAT 96
[2025-02-08 11:13] LABS: INR 0.97 (0.9-1.15); Partial Thromboplastin Time 34.2 SEC (24.5-34.5); Prothrombin Time 10.3 sec (9.3-11.8)
[2025-02-08] MEDS ORDERED: PROPOFOL 10 MG/ML 20 ML IV ONE (12:01)
[2025-02-08] MEDS ORDERED: fentaNYL CITRATE 100 MCG/2 ML VL ONE (12:01)
--- NOTE | 2025-02-08 12:27 | DVHINCON2 ---
Date Seen: February 08, 2025 Reason for Consultation Left foot wound History of Present Illness Patient is 49 years old male with past medical history of diabetes mellitus came with a complaint of left foot wound. As per patient he has been having left foot wound for last 1 week, it started with the left foot swelling and erythema gradually got worse and starting having skin color changes especially on the 3rd toe on the left. Patient also having some discharge from the left foot for the same duration. Patient denied any pain. As per patient he was wearing the same shoes that was putting pressure of the left foot but never change it. Patient denied any chest pain or shortness of breath, dysuria, acute joint redness to other joint. Initial lab workup revealed leukocytosis WBC 18.2, neutrophil 85.5, ESR 50, sodium 133, HGB A1c 8.2. CT left foot significant for cellulitis. Soft tissue gas is seen between the 2nd and 3rd digits suggestive of infectious / inflammatory process. Fat stranding and phlegmonous changes are seen throughout the left foot which likely reflects sequelae of cellulitis. Past Medical History See H&P Past Surgical History See H&P Family History: Diabetes mellitus G8 FATHER Allergies: Coded Allergies: NO KNOWN ALLERGIES (Unverified , 07/02/24) Home Meds Active Scripts Zinc Sulfate (Zinc) 220 Mg Cap, 220 MG PO DAILY, #30 CAP Prov:MEHRAN GUERRERO MD 07/29/24 Hydrocodone-Acetaminophen (Hydrocodone Bitartrate/AC 5-325 mg) 1 Tab Tab, 1 TAB PO Q6HP PRN, #20 TAB Prov:MEHRAN GUERRERO MD 07/29/24 Magnesium Oxide (MAGNESIUM OXIDE) 400 Mg Tab, 1 TAB PO DAILY, #30 TAB 0 Refills Prov:MEHRAN GUERRERO MD 07/29/24 Metformin Hydrochloride (Metformin Hcl) 500 Mg Tab, 1 TAB PO BID, #60 TAB 3 Refills Prov:MEHRAN GUERRERO MD 07/29/24 Dapagliflozin Propanediol (Farxiga) 10 Mg Tab, 10 MG PO DAILY for 30 Days, #30 TAB Prov:MEHRAN GUERRERO MD 07/29/24 Insulin Glargine (Lantus) 100 Unit/Ml Inj, 30 UNIT SC DAILY for 30 Days, #1000 UNITS Prov:MEHRAN GUERRERO MD 07/29/24 Reported Medications Glipizide (Glipizide) 5 Mg Tab, 5 MG PO DAILY for 30 Days, MG 07/04/24 Metformin Hydrochloride (Metformin Hcl) 500 Mg Tab, 500 MG PO IBID for 30 Days, MG 07/04/24 Dapagliflozin Propanediol (Farxiga) 10 Mg Tab, 10 MG PO DAILY, TAB 07/04/24 Gabapentin (Gabapentin) 600 Mg Tab, 600 MG PO BID for 30 Days, MG 07/04/24 Current Medications Current Medications Medications (Trade) Dose Ordered Sig/Sandra Route PRN Reason Start Time Stop Time Status Last Admin Piperacillin Sod/ Tazobactam Sod 100 ml @ 25 mls/hr Q6HR IV 02/07/25 18:00 02/08/25 06:09 Vancomycin HCl 300 ml @ 200 mls/hr Q12H IV 02/07/25 20:00 02/07/25 20:35 Vital Signs Vital Signs Date Time Temp Pulse Resp B/P (MAP) Pulse Ox O2 Delivery O2 Flow Rate FiO2 02/08/25 08:56 98.5 88 20 107/65 (79) 96 98.5 02/07/25 22:01 Room Air* 0 21 Physical Exam Dermatological: Skin is dry with mild erythema and some maceration around the wound site No gross deformities noted Mild non-pitting edema present bilaterally Left foot area of fluctuance with erythema and malodor Vascular: Dorsalis pedis and posterior tibial pulses are 1+ bilaterally Capillary refill is under 2 seconds Skin temperature is warm bilaterally Neurologic: Protective sensation is absent on the plantar forefoot bilaterally Monofilament testing reveals decreased sensation in multiple plantar sites Musculoskeletal: Range of motion at the ankle and MTP joints is within normal limits. Strength is 5/5 in all tested muscle groups. Gait is antalgic due to offloading of the affected limb. Labs/Diagnostic Data Labs Test 02/08/25 11:32 02/08/25 10:00 02/08/25 05:36 02/07/25 22:40 Range/Units POC Glucose 83 70-106 mg/dl Prothrombin Time 10.3 9.3-11.8 sec Prothrombin Time INR 0.97 0.9-1.15 Activated Partial Thromboplast Time 34.2 24.5-34.5 SEC White Blood Count 14.1 H 4.4-10.8 10^3/uL Red Blood Count 3.99 L 4.5-5.90 10^6/uL Hemoglobin 11.4 L 13.5-17.5 g/dL Hematocrit 35.2 #L 41.0-53.0 % Mean Corpuscular Volume 88.2 80.0-100.0 fL Mean Corpuscular Hemoglobin 28.7 28.0-32.0 pg Mean Corpuscular Hemoglobin Concent 32.5 32.0-36.0 g/dL Red Cell Distribution Width 15.8 H 11.8-14.3 % Platelet Count 311 140-450 10^3/uL Mean Platelet Volume 7.6 6.9-10.8 fL Neutrophils (%) (Auto) 82.4 H 37.0-80.0 % Lymphocytes (%) (Auto) 10.1 10.0-50.0 % Monocytes (%) (Auto) 6.2 0.0-12.0 % Eosinophils (%) (Auto) 0.9 0.0-7.0 % Basophils (%) (Auto) 0.4 0.0-2.0 % Neutrophils # (Auto) 11.6 H 1.6-8.6 10 ^3/uL Lymphocytes # (Auto) 1.4 0.4-5.4 10 ^3/uL Monocytes # (Auto) 0.9 0-1.3 10 ^3/uL Eosinophils # (Auto) 0.1 0-0.8 10 ^3/uL Basophils # (Auto) 0.1 0-0.2 10 ^3/uL Nucleated Red Blood Cells 0.0 % Sodium Level 142 136-145 mmol/L Potassium Level 4.1 3.5-5.1 mmol/L Chloride Level 108 H 98-107 mmol/L Carbon Dioxide Level 21 20-31 mmol/L Anion Gap 13 5-15 Blood Urea Nitrogen 11 9-23 mg/dL Creatinine 0.73 0.700-1.30 mg/dL Glomerular Filtration Rate Calc 112 >90 mL/min BUN/Creatinine Ratio 15.1 10.0-20.0 Serum Glucose 97 74-106 mg/dL Calcium Level 8.7 8.7-10.4 mg/dL Influenza Type A Antigen Negative Negative Influenza Type B Antigen Negative Negative SARS-CoV-2 Antigen (Rapid) Negative NEGATIVE Test 02/07/25 13:21 02/07/25 04:46 02/06/25 20:55 02/06/25 17:33 Range/Units Urine Color Yellow Yellow Urine Clarity Clear Clear Urine pH 5.5 5.0-9.0 Urine Specific [place] 1.031 1.001-1.035 Urine Protein Negative Negative Urine Ketones 3+ H Negative Urine Blood Negative Negative /uL Urine Nitrite Negative Negative Urine Bilirubin Negative Negative Urine Urobilinogen Normal Negative mg/dL Urine Leukocyte Esterase Negative Negative /uL Urine RBC None seen 0 - 3 /hpf Urine Microscopic WBC < 1 0-3 /HPF Urine Squamous Epithelial Cells None seen <5 /hpf Urine Bacteria None seen None Seen /hpf Urine Glucose 4+ H Normal mg/dL Urine Opiates Screen Neg NEGATIVE Urine Fentanyl Screen Neg NEGATIVE Urine Barbiturates Screen Neg NEGATIVE Urine Phencyclidine Screen Neg NEGATIVE Urine Amphetamines Screen Neg NEGATIVE Urine Benzodiazepines Screen Neg NEGATIVE Urine Cocaine Screen Neg NEGATIVE Urine Cannabinoids Screen Neg NEGATIVE Hemoglobin A1c 8.2 H <5.7 % A1C Magnesium Level 2.3 1.6-2.6 mg/dL Total Bilirubin 0.6 0.2-1.0 mg/dL Aspartate Amino Transferase (AST) 9 L 13-40 U/L Alanine Aminotransferase (ALT) 15 7-40 U/L Alkaline Phosphatase 62 46-116 U/L Total Protein 6.7 5.7-8.2 g/dL Albumin 3.8 3.2-4.8 g/dL C-Reactive Protein High Sensitivity 15.84 H <1.0 mg/dL Vitamin B12 Level 386 211-911 pg/mL Vitamin D 25-Hydroxy 35.1 30.0-100 ng/mL Folic Acid 18.38 >5.38 ng/mL Thyroid Stimulating Hormone (TSH) 1.15 0.55-4.78 uIU/mL Erythrocyte Sedimentation Rate 50 H 0-20 mm/hr Lactic Acid Level 1.3 0.4-2.0 mmol/L Plasma/Serum Blood Alcohol < 3.0 <10 mg/dL Microbiology Date/Time Source Procedure Growth Status 02/07/25 13:21 Voided Urine Urine Culture - Preliminary Resulted 02/06/25 17:43 Blood Blood Culture - Preliminary NO GROWTH AFTER 24 HOURS OF INCUBATION. Resulted Problems(with codes): (1) Nausea & vomiting (2) DKA, type 2, not at goal (3) AMS (altered mental status) (4) Electrolyte imbalance (5) Hypotension (6) Diabetic keto-acidosis (7) Acute renal injury (8) Acute respiratory distress (9) Disorientation, unspecified (10) Projectile vomiting (11) Cellulitis of left foot (12) Osteomyelitis (13) Gas gangrene (14) Necrotizing soft tissue infection Plan/Recommendation ASSESSMENT: Patient is a 49 year old seen on the floor for a worsening ulcer PLAN: - The patients chart was reviewed, clinical findings were discussed with the patient, the etiologies of the conditions were discussed in detail, and a treatment plan was agreed to at this time, with both oral and written instructions provided. - reviewed advanced imaging - discussed plan is to perform an incision and drainage - patient has been NPO since midnight - take him to the OR today - we will get cultures in the OR - can weightbear as tolerated in postoperative shoe All questions were answered and concerns addressed to the patient's satisfaction. The patient was given the phone number to the clinic and was told how to make contact with the clinic should any concerns or questions arise. Patient understands that if any questions or concerns arise prior to the next appointment, we should be contacted immediately. FOLLOW-UP: Continue to follow while inpatient Plan discussed with: Patient Date of Service: February 08, 2025 Billing Provider: DEDE DE LEÓN DPM Common Visit Codes: CONSULT ONLY Consultation Codes: [id number] CONSULT <80MIN DEDE DE LEÓN DPM February 08, 2025 12:27
[2025-02-08] MEDS: VANCOMYCIN HCL 1000 MG VL ONE (12:41)
[2025-02-08] MEDS: LIDOCAINE W/ EPINEPHRINE 1% 20ML VIAL ONE (13:02)
[2025-02-08 13:13] VITALS: O2SAT 93
--- NOTE | 2025-02-08 13:13 | DVHOP2 ---
Operative Report - 2 Report Details Date: 02/08/25 Preop Diagnosis: 1. Left foot osteomyelitis 2. Left foot abscess 3. Left foot gas gangrene 4. Left foot cellulitis Postop Diagnosis: Same as preop Surgeon: Dede De León MD Anesthesiologist: See anesthesia Anesthesia: Mac Consent: The patient was informed of the risks and benefits of the procedure. These include but are not limited to complications of anesthesia, postoperative infection, incomplete relief of symptoms, recurrence of symptoms, damage to blood vessels, nerves and tendons, deep venous thrombosis, pulmonary embolism and possible need for repeat surgery in the future. Complications: None Estimated Blood Loss: Minimal Fluids: See anesthesia Findings: Consistent with diagnosis Indications for Surgery: Worsening left foot wound Name of Procedure Performed 1. Left foot I&D to bone third middle foot () 2. Left foot I&D to bone second middle foot () 3. Left foot bone biopsy () Procedure Details Procedure Details: PRE-PROCEDURE INFORMATION: In the pre-op holding area, the extremity to be operated on was clearly marked and the patient verified correct laterality of the marking. The patient was transferred to the OR table and placed in a supine position. A timeout was performed in which identification of the correct pat ient, procedure, location, and materials was done. The left foot and leg were prepped and draped in normal sterile fashion. DESCRIPTION OF PROCEDURE: Attention was directed to the left 1st interspace where area of fluctuance was noted. An incision was made over this area and was deepened through blunt dissection. The incision was deepened to the level of abscess and bone. Care was taken to the dissection to avoid any neurovascular and tendinous structures. The incision was deepened to the bone, and the abscess appeared to be purulent fluid consistent with pus. The cortices of the bone was then removed with rongeur an all necrotic tissue. After the abscess was drained, the area was irrigated with 3 L normal saline using cysto tubing. Deep cultures were then obtained from the wound. The area was then inspected and any areas of tracking, especially along the tendons were also drained. A bone biopsy was then taken of the left 2nd metatarsal which was deepened to the muscle belly and tendons. The bone was then sent to pathology to determine the extent of osteomyelitis. The wound was packed with Betadine-soaked gauze and we will need to be closed at a later date. Attention was directed to the left 3rd interspace where area of fluctuance was noted. An incision was made over this area and was deepened through blunt dissection. The incision was deepened to the level of abscess and bone. Care was taken to the dissection to avoid any neurovascular and tendinous structures. The incision was deepened to the bone, and the abscess appeared to be purulent fluid consistent with pus. The cortices of the bone was then removed with moody geur an all necrotic tissue. After the abscess was drained, the area was irrigated with 3 L normal saline using cysto tubing. Deep cultures were then obtained from the wound. The area was then inspected and any areas of tracking, especially along the tendons were also drained. The wound was packed with Betadine-soaked gauze and we will need to be closed at a later date. POSTOPERATIVE INFORMATION: The patient tolerated the above noted procedure and anesthesia well and was transferred to the PACU with vital signs stable, and vascular status intact with capillary refill intact to all digits. Deep cultures were taken and bone biopsy was taken. Patient will return to the floor and continue IV antibiotics. Patient will need multiple I and D's in order to salvage the foot. Specimen: Left 2nd metatarsal Condition Good Disposition Still a Patient DEDE DE LEÓN DPM February 08, 2025 13:13
[2025-02-08] MEDS ORDERED: MEPERIDINE HCL (25 MG/ML) 1ML VIAL IV PRN (13:30)
[2025-02-08] MEDS ORDERED: HYDROmorphone HCL 2 MG/ML VL/or syr IV PRN (13:30)
[2025-02-08] MEDS ORDERED: ACETAMINOPHEN IV 1000 MG/100ML (10MG/ML) IV PRN (13:30)
--- NOTE | 2025-02-08 14:21 | DVHPNRES ---
Progress Note Date Seen: February 08, 2025 Resident Creating Document: MADHU REID RESIDENT Has the PT tested + for MRSA If YES, has PT been informed?: No Medical Necessity Reason Pt with a Central, PICC or Fol: No Medical Necessity Reason 02/07: This is a 49-year-old male with a past medical history of diabetic diabetes diagnosed about 20 years ago. Patient was actually admitted here in the hospital in July of 2020 and managed for DKA and was intubated. Patient came to the ED yesterday because of left foot swelling and redness and discoloration of his third toe. According to the patient, he noticed swelling on his left toe was driving from [place] to [place] he has a long this under the by the way. Per patient he said he was wearing a closed tight shoe and he realized that his stools were rubbing against each other causing itching and that was the ariella this whole infection. And the wound the swelling just got bigger ulcerating and now forming past. has been taking care and dressing the wound but is not improving but getting worse. Thus prompting this visit to the ED. His diabetes is under controlled. A1C 8.8 AND is currentlyon on Lantus, Farxiga, and metformin. CT showed significant for cellulitis. Soft tissue gas is seen between the 2nd and 3rd digits suggestive of infectious / inflammatory process. Fat stranding and phlegmonous changes are seen throughout the left foot which likely reflects sequelae of cellulitis. MRI pending 02/08/2025 Patient is seen and examined today. He is not in any acute respiratory distress he was also seen by the radio intelligence operator today who has already taken him into surgery for incision and drainage. Currently patient is status post incision and drainage of the 2nd and 3rd food and sample taken for culture. Tieing Machine Operator we will continue to follow and so he has been care. Subjective Review of Systems Constitutional: Denies fever no chills no feeling of malaise HEENT: Denies headache, ear pain, ear discharges, conjunctivitis, nasal discharge throat pain Cardiovascular: Denies chest pain, palpitation, orthopnea, PND, or pedal edema Respiratory: Denies shortness of breath, cough cough, sputum production, hemoptysis, GI: Denies abdominal pain, nausea, vomiting, diarrhea, hematemesis, hematochezia, : Denies frequency, urgency, hematuria, Endocrine: Denies unintentional weight gain or weight loss, feeling of hot flashes, Jose E: Denies easy bruising, bleeding disorders, epistaxis Musculoskeletal: Denies joint pains, muscle aches Psych: No evidence of depression, rhona, suicidal ideation Objective vital signs Vital Sign Date Time Temp Pulse Resp B/P (MAP) Pulse Ox O2 Delivery O2 Flow Rate FiO2 02/08/25 13:13 Room Air 93 02/08/25 13:13 93 02/08/25 08:56 98.5 88 20 107/65 (79) 98.5 02/07/25 22:01 0 Total Intake and Output 02/07/25 02/07/25 02/08/25 15:00 23:00 07:00 Intake Total 794.0 ml 120 ml 0 ml Output Total 700 ml Balance 794.0 ml 120 ml -700 ml medications Current Medications Medications Dose Ordered Sig/Sandra Route Start Time Stop Time Status Last Admin Dose Admin Sodium Chloride 10 ml Q8HR IV 02/06/25 22:00 02/08/25 06:11 10 ML Sodium Chloride 1,000 ml @ 120 mls/hr Q8H20M IV 02/06/25 20:45 02/08/25 06:05 120 MLS/HR Acetaminophen/ Hydrocodone Bitart 1 tab Q4HP PRN PO 02/06/25 20:45 02/08/25 11:40 1 TAB Ondansetron HCl 4 mg Q4HP PRN IV 02/06/25 20:45 02/06/25 21:06 4 MG Enoxaparin Sodium 40 mg DAILY SC 02/07/25 10:00 02/07/25 09:57 40 MG Acetaminophen 650 mg Q6HP PRN PO 02/06/25 20:45 02/06/25 22:47 650 MG Vancomycin HCl 0 ml @ 0 mls/hr UD IV 02/06/25 20:45 Pantoprazole Sodium 40 mg DAILY IV 02/07/25 10:00 02/07/25 09:57 40 MG Diagnostic Test (Pha) 1 strip ACHS 02/06/25 22:00 02/08/25 06:48 1 STRIP Insulin Human Regular ACHS SC 02/06/25 22:00 02/07/25 17:10 4 UNITS Dextrose 50 ml UD PRN IV 02/06/25 21:00 Piperacillin Sod/ Tazobactam Sod 100 ml @ 25 mls/hr Q6HR IV 02/07/25 18:00 02/08/25 06:09 25 MLS/HR Vancomycin HCl 300 ml @ 200 mls/hr Q12H IV 02/07/25 20:00 02/07/25 20:35 200 MLS/HR Hydromorphone HCl 0.5 mg Q10M PRN IV 02/08/25 13:30 02/08/25 14:11 Examination General Appearance: Alert, Oriented X3, Cooperative, No acute distress HEENT: Atraumatic, PERRLA, EOMI, Mucous membrane moist/pink Respiratory: Clear to auscultation, Normal air movement Cardiovascular: Regular rate, Normal S1, Normal S2, No murmurs, no chest wall tenderness Abdominal: NO distention, no tenderness, bowel sounds present, no scars noted Extremities: No clubbing, No cyanosis, No edema, Normal pulses, No tenderness/swelling; Left foot covered in bandage Skin: Right foot ok. Left s/p I &d Neuro: Normal gait, Normal speech, Strength at 5/5 X4 ext, Normal tone, Sensation intact, Cranial nerves 3-12 NL, Reflexes 2+ Psych/Mental Status: Mental status NL, Mood NL laboratory and microbiology Laboratory Tests 02/08/25 05:36 Test 02/08/25 05:36 Range/Units Serum Glucose 97 74-106 mg/dL Microbiology Date/Time Source Procedure Growth Status 02/07/25 22:40 Nose MRSA Screen - Final Complete 02/07/25 13:21 Voided Urine Urine Culture - Preliminary Resulted 02/06/25 17:43 Blood Blood Culture - Preliminary NO GROWTH AFTER 24 HOURS OF INCUBATION. Resulted Problem List/Assessment/Plan Problem List/Assessment/Plan Assessment Sepsis likely due to left foot cellulitis Acute Left foot cellulitis. S/P incision and drainage 02/08/2025 Acute Osteomylittis of the second toe ( MRI Osteomyelitis in the 2nd proximal and middle phalanx) Bluish discoloration change in the left 3rd toe; Arterial doppler: 20-49% stenosis of the left distal superficial femoral artery based on peak systolic velocity criteria. PAD left leg Diabetes mellitus type2 HGB A1c 8.2 Diabetic neuropathy Negative for DVT Leukocytosis Left distal superficial femoral artery stenosis Plan Zosyn and vancomycin Pending wound and blood culture Vascular surgery consult Pending wound care consult Mild insulin sliding scale Pain medication and other PRN Zofran Continue home medications Goal of care discussed for more than 20 minutes: Full code Case and plan discussed with Dr. Vick Plan discussed with: Patient Date of Service: February 08, 2025 Billing Provider: PEDRO VICK MD Common Visit Codes: [id number] INP/OBS CARE(HIGH) MADHU REID RESIDENT February 08, 2025 14:21 PEDRO VICK MD February 08, 2025 19:05
[2025-02-08 20:00] VITALS: PULSE 99
[2025-02-08 21:00] VITALS: BP 138/79; PULSE 100; RESP 18; TEMP 98.5; O2SAT 96
[2025-02-08] MEDS ORDERED: PIPERACILLIN-TAZOB 3.375GM 100 ML IV SCH (21:00)
[2025-02-08] MEDS: VANCOMYCIN 1.5GM/300ML 300 ML IV SCH (22:51)
[2025-02-09] VITALS (8 sets, daily range): BP systolic 101–138; BP diastolic 54–75; PULSE 80–96; RESP 16–20; TEMP 97.8–98.2; O2SAT 95–98
[2025-02-09] MEDS: PIPERACILLIN-TAZOB 3.375GM 100 ML IV SCH ×2 (00:35→22:09)
[2025-02-09 08:37] LABS: Potassium 4.1 mmol/L (3.5-5.1); Sodium 142 mmol/L (136-145)
[2025-02-09 08:38] LABS: Anion Gap 13 (5-15)
[2025-02-09 08:39] LABS: Calcium 9.3 mg/dL (8.7-10.4)
[2025-02-09 08:44] LABS: BUN/Creatinine Ratio 11.7 (10.0-20.0); Blood Urea Nitrogen 11 mg/dL (9-23)
[2025-02-09 08:45] LABS: Carbon Dioxide 20 mmol/L (20-31); Chloride 109 mmol/L (98-107); Glucose 132 mg/dL (74-106)
[2025-02-09 08:52] LABS: Basophils # (auto) 0.1 10 ^3/uL (0-0.2); Basophils % (auto) 0.5 % (0.0-2.0); Eosinophils # (auto) 0.1 10 ^3/uL (0-0.8); Eosinophils % (auto) 0.5 % (0.0-7.0); Hematocrit 35.6 % (41.0-53.0); Hemoglobin 11.6 g/dL (13.5-17.5); Lymphocytes # (auto) 1.5 10 ^3/uL (0.4-5.4); Lymphocytes % (auto) 10.4 % (10.0-50.0); Mean Corpuscular Hemoglobin 28.9 pg (28.0-32.0); Mean Corpuscular Hgb Conc. 32.5 g/dL (32.0-36.0); Monocytes # (auto) 0.7 10 ^3/uL (0-1.3); Monocytes % (auto) 5.2 % (0.0-12.0); Neutrophils # (auto) 11.8 10 ^3/uL (1.6-8.6); Neutrophils % (auto) 83.4 % (37.0-80.0); Platelet Count (auto) 353 10^3/uL (140-450); Red Cell Distribution Width 15.8 % (11.8-14.3); White Blood Cell 14.2 10^3/uL (4.4-10.8)
[2025-02-09] MEDS: INSULIN LANTUS (GLARGINE) 1 /0.01ml (100units/ml) SC SCH (09:38)
[2025-02-09 10:25] LABS: Hepatitis B Surface Antigen Negative (Negative)
[2025-02-09 10:45] LABS: Hepatitis C Antibody Negative (Negative)
--- NOTE | 2025-02-09 11:45 | DVHPN2 ---
Subjective Patient is 49 years old male with past medical history of diabetes mellitus came with a complaint of left foot wound. As per patient he has been having left foot wound for last 1 week, it started with the left foot swelling and erythema gradually got worse and starting having skin color changes especially on the 3rd toe on the left. Patient also having some discharge from the left foot for the same duration. Patient denied any pain. As per patient he was wearing the same shoes that was putting pressure of the left foot but never change it. Patient denied any chest pain or shortness of breath, dysuria, acute joint redness to other joint. Initial lab workup revealed leukocytosis WBC 18.2, neutrophil 85.5, ESR 50, sodium 133, HGB A1c 8.2. CT left foot significant for cellulitis. Soft tissue gas is seen between the 2nd and 3rd digits suggestive of infectious / inflammatory process. Fat stranding and phlegmonous changes are seen throughout the left foot which likely reflects sequelae of cellulitis. Changes from previous H/P or p: No Changes Objective Vitals Vital Signs Date Time Temp Pulse Resp B/P (MAP) Pulse Ox O2 Delivery O2 Flow Rate FiO2 02/09/25 09:00 97.9 82 20 124/73 (90) 98 97.9 02/08/25 20:00 Room Air* 0 21 Intake/Output Intake and Output 02/09/25 07:00 Intake Total 1200 ml Output Total 1600 ml Balance -400 ml Intake Oral 900 ml IV Total 300 ml Output Urine Total 1600 ml # Voids 1 # Bowel Movements 2 Exam Dermatological: Skin is dry with mild erythema and some maceration around the wound site No gross deformities noted Mild non-pitting edema present bilaterally Left foot area of fluctuance with erythema and malodor Vascular: Dorsalis pedis and posterior tibial pulses are 1+ bilaterally Capillary refill is under 2 seconds Skin temperature is warm bilaterally Neurologic: Protective sensation is absent on the plantar forefoot bilaterally Monofilament testing reveals decreased sensation in multiple plantar sites Musculoskeletal: Range of motion at the ankle and MTP joints is within normal limits. Strength is 5/5 in all tested muscle groups. Gait is antalgic due to offloading of the affected limb. Medications Current Medications Medications Dose Ordered Sig/Sandra Route Start Time Stop Time Status Last Admin Dose Admin Sodium Chloride 10 ml Q8HR IV 02/06/25 22:00 02/09/25 06:36 10 ML Acetaminophen/ Hydrocodone Bitart 1 tab Q4HP PRN PO 02/06/25 20:45 02/08/25 22:57 1 TAB Ondansetron HCl 4 mg Q4HP PRN IV 02/06/25 20:45 02/06/25 21:06 4 MG Enoxaparin Sodium 40 mg DAILY SC 02/07/25 10:00 02/09/25 09:40 40 MG Acetaminophen 650 mg Q6HP PRN PO 02/06/25 20:45 02/06/25 22:47 650 MG Vancomycin HCl 0 ml @ 0 mls/hr UD IV 02/06/25 20:45 Pantoprazole Sodium 40 mg DAILY IV 02/07/25 10:00 02/09/25 09:40 40 MG Diagnostic Test (Pha) 1 strip ACHS 02/06/25 22:00 02/09/25 11:20 1 STRIP Insulin Human Regular ACHS SC 02/06/25 22:00 02/09/25 11:20 2 UNITS Dextrose 50 ml UD PRN IV 02/06/25 21:00 Vancomycin HCl 300 ml @ 200 mls/hr Q12H IV 02/08/25 23:00 02/09/25 11:07 200 MLS/HR Piperacillin Sod/ Tazobactam Sod 100 ml @ 25 mls/hr Q6H IV 02/09/25 00:00 02/09/25 06:34 25 MLS/HR Insulin Glargine 22 units DAILY@1000 SC 02/09/25 10:00 02/09/25 09:38 22 UNITS Laboratory Results Laboratory Tests 02/09/25 05:07 02/09/25 05:08 Chemistry Test 02/09/25 05:07 Calcium Level 9.3 mg/dL (8.7-10.4) Urinalysis Test 02/07/25 13:21 Urine Color Yellow (Yellow) Urine Clarity Clear (Clear) Urine pH 5.5 (5.0-9.0) Urine Specific [place] 1.031 (1.001-1.035) Urine Protein Negative (Negative) Urine Ketones 3+ (Negative) H Urine Blood Negative /uL (Negative) Urine Nitrite Negative (Negative) Urine Bilirubin Negative (Negative) Urine Urobilinogen Normal mg/dL (Negative) Urine Leukocyte Esterase Negative /uL (Negative) Urine RBC None seen /hpf (0 - 3) Urine Microscopic WBC < 1 /HPF (0-3) Urine Squamous Epithelial Cells None seen /hpf (<5) Urine Bacteria None seen /hpf (None Seen) Urine Glucose 4+ mg/dL (Normal) H Microbiology Microbiology Date/Time Source Procedure Growth Status 02/08/25 13:05 Foot Left Gram Stain - Final Resulted 02/08/25 13:05 Foot Left Anaerobic Culture - Preliminary Resulted 02/08/25 13:05 Foot Left Aerobic Culture - Preliminary Resulted 02/07/25 13:21 Voided Urine Urine Culture - Final Complete 02/06/25 17:43 Blood Blood Culture - Preliminary NO GROWTH AFTER 48 HOURS OF INCUBATION. Resulted Assessment/Plan Assessment/Plan ASSESSMENT: Patient is a 49 year old seen on the floor follow up s/p foot I&D PLAN: - The patients chart was reviewed, clinical findings were discussed with the patient, the etiologies of the conditions were discussed in detail, and a treatment plan was agreed to at this time, with both oral and written instructions provided. - reviewed advanced imaging - reviewed all of the labs and pathology - discussed plan is to perform a subsequent incision and drainage - patient will be NPO at midnight - take him to the OR tomorrow - it was determined that multiple I&Ds will be necessary to save the limb - evaluted patients both feet and there is excessive dryness and onychomycosis that patient would benefit from routine foot care as an outpatient - can weightbear as tolerated in postoperative shoe All questions were answered and concerns addressed to the patient's satisfaction. The patient was given the phone number to the clinic and was told how to make contact with the clinic should any concerns or questions arise. Patient understands that if any questions or concerns arise prior to the next appointment, we should be contacted immediately. FOLLOW-UP: Continue to follow while inpatient Plan discussed with: Patient My Orders Orders - DEDE DE LEÓN DPM Procedure Category Date Status Time Routine Bacterial CHARLIE 02/08/25 In Process Culture 13:05 Anaerobic Culture CHARLIE 02/08/25 In Process 13:05 Fungus Culture With CHARLIE 02/08/25 Logged Stain 13: Gram Stain CHARLIE 02/08/25 In Process 13:05 Consistent DIET 02/08/25 Transmitted Carb(Ccho)Diabetes Dinner Problem List: (1) Cellulitis of left foot (2) Projectile vomiting (3) Electrolyte imbalance (4) Acute respiratory distress (5) Hypotension (6) Diabetic keto-acidosis (7) Nausea & vomiting (8) Disorientation, unspecified (9) DKA, type 2, not at goal (10) Acute renal injury (11) AMS (altered mental status) (12) Gas gangrene (13) Osteomyelitis (14) Necrotizing soft tissue infection Date of Service: February 09, 2025 Billing Provider: DEDE DE LEÓN DPM Common Visit Codes: [id number] INP/OBS CARE(HIGH) DEDE DE LEÓN DPM February 09, 2025 11:45
--- NOTE | 2025-02-09 12:20 | DVHCONRES ---
Family History: Diabetes mellitus G8 FATHER Allergies: Coded Allergies: NO KNOWN ALLERGIES (Unverified , 07/02/24) Home Meds Active Scripts Zinc Sulfate (Zinc) 220 Mg Cap, 220 MG PO DAILY, #30 CAP Prov:MEHRAN GUERRERO MD 07/29/24 Hydrocodone-Acetaminophen (Hydrocodone Bitartrate/AC 5-325 mg) 1 Tab Tab, 1 TAB PO Q6HP PRN, #20 TAB Prov:MEHRAN GUERRERO MD 07/29/24 Magnesium Oxide (MAGNESIUM OXIDE) 400 Mg Tab, 1 TAB PO DAILY, #30 TAB 0 Refills Prov:MEHRAN GUERRERO MD 07/29/24 Metformin Hydrochloride (Metformin Hcl) 500 Mg Tab, 1 TAB PO BID, #60 TAB 3 Refills Prov:MEHRAN GUERRERO MD 07/29/24 Dapagliflozin Propanediol (Farxiga) 10 Mg Tab, 10 MG PO DAILY for 30 Days, #30 TAB Prov:MEHRAN GUERRERO MD 07/29/24 Insulin Glargine (Lantus) 100 Unit/Ml Inj, 30 UNIT SC DAILY for 30 Days, #1000 UNITS Prov:MEHRAN GUERRERO MD 07/29/24 Reported Medications Glipizide (Glipizide) 5 Mg Tab, 5 MG PO DAILY for 30 Days, MG 07/04/24 Metformin Hydrochloride (Metformin Hcl) 500 Mg Tab, 500 MG PO IBID for 30 Days, MG 07/04/24 Dapagliflozin Propanediol (Farxiga) 10 Mg Tab, 10 MG PO DAILY, TAB 07/04/24 Gabapentin (Gabapentin) 600 Mg Tab, 600 MG PO BID for 30 Days, MG 07/04/24 Current Medications Current Medications Medications (Trade) Dose Ordered Sig/Sandra Route PRN Reason Start Time Stop Time Status Last Admin Hydromorphone HCl (Dilaudid Injection) 0.5 mg Q10M PRN IV SEVERE PAIN (7-10 PAIN SCALE) 02/08/25 13:30 02/08/25 14:11 DC Meperidine HCl (Demerol Injection) 25 mg Q10M PRN IV MODERATE PAIN (4-6 PAIN SCALE) 02/08/25 13:30 02/08/25 14:01 DC Acetaminophen (Ofirmev) 1,000 mg [id number] PRN IV PAIN SCALE 1-3 OR TEMP>100.4 5/27/25 13:30 02/08/25 13:32 DC Piperacillin Sod/ Tazobactam Sod 100 ml @ 25 mls/hr Q6H IV 02/08/25 21:00 02/08/25 22:45 DC Vancomycin HCl 300 ml @ 200 mls/hr Q12H IV 02/08/25 23:00 02/09/25 11:07 Piperacillin Sod/ Tazobactam Sod 100 ml @ 25 mls/hr Q6H IV 02/09/25 00:00 02/09/25 06:34 Insulin Glargine (Lantus) 22 units DAILY@1000 SC 02/09/25 10:00 02/09/25 09:38 Vital Signs Vital Signs Date Time Temp Pulse Resp B/P (MAP) Pulse Ox O2 Delivery O2 Flow Rate FiO2 02/09/25 09:00 97.9 82 20 124/73 (90) 98 97.9 02/09/25 08:00 Room Air* 0 21 Labs/Diagnostic Data Labs Test 02/09/25 11:12 02/09/25 05:08 02/09/25 05:07 02/08/25 10:00 Range/Units POC Glucose 150 H 70-106 mg/dl White Blood Count 14.2 H 4.4-10.8 10^3/uL Red Blood Count 4.00 L 4.5-5.90 10^6/uL Hemoglobin 11.6 L 13.5-17.5 g/dL Hematocrit 35.6 L 41.0-53.0 % Mean Corpuscular Volume 89.0 80.0-100.0 fL Mean Corpuscular Hemoglobin 28.9 28.0-32.0 pg Mean Corpuscular Hemoglobin Concent 32.5 32.0-36.0 g/dL Red Cell Distribution Width 15.8 H 11.8-14.3 % Platelet Count 353 140-450 10^3/uL Mean Platelet Volume 8.4 6.9-10.8 fL Neutrophils (%) (Auto) 83.4 H 37.0-80.0 % Lymphocytes (%) (Auto) 10.4 10.0-50.0 % Monocytes (%) (Auto) 5.2 0.0-12.0 % Eosinophils (%) (Auto) 0.5 0.0-7.0 % Basophils (%) (Auto) 0.5 0.0-2.0 % Neutrophils # (Auto) 11.8 H 1.6-8.6 10 ^3/uL Lymphocytes # (Auto) 1.5 0.4-5.4 10 ^3/uL Monocytes # (Auto) 0.7 0-1.3 10 ^3/uL Eosinophils # (Auto) 0.1 0-0.8 10 ^3/uL Basophils # (Auto) 0.1 0-0.2 10 ^3/uL Nucleated Red Blood Cells 0.0 % Creatinine 0.98 0.700-1.30 mg/dL Glomerular Filtration Rate Calc 95 >90 mL/min Sodium Level 142 136-145 mmol/L Potassium Level 4.1 3.5-5.1 mmol/L Chloride Level 109 H 98-107 mmol/L Carbon Dioxide Level 20 20-31 mmol/L Anion Gap 13 5-15 Blood Urea Nitrogen 11 9-23 mg/dL BUN/Creatinine Ratio 11.7 10.0-20.0 Serum Glucose 132 H 74-106 mg/dL Calcium Level 9.3 8.7-10.4 mg/dL Prothrombin Time 10.3 9.3-11.8 sec Prothrombin Time INR 0.97 0.9-1.15 Activated Partial Thromboplast Time 34.2 24.5-34.5 SEC Test 02/08/25 05:36 02/07/25 22:40 02/07/25 13:21 02/07/25 04:46 Range/Units Hepatitis B Surface Antigen Negative Negative Hepatitis C Antibody Negative Negative Influenza Type A Antigen Negative Negative Influenza Type B Antigen Negative Negative SARS-CoV-2 Antigen (Rapid) Negative NEGATIVE Urine Color Yellow Yellow Urine Clarity Clear Clear Urine pH 5.5 5.0-9.0 Urine Specific [place] 1.031 1.001-1.035 Urine Protein Negative Negative Urine Ketones 3+ H Negative Urine Blood Negative Negative /uL Urine Nitrite Negative Negative Urine Bilirubin Negative Negative Urine Urobilinogen Normal Negative mg/dL Urine Leukocyte Esterase Negative Negative /uL Urine RBC None seen 0 - 3 /hpf Urine Microscopic WBC < 1 0-3 /HPF Urine Squamous Epithelial Cells None seen <5 /hpf Urine Bacteria None seen None Seen /hpf Urine Glucose 4+ H Normal mg/dL Urine Opiates Screen Neg NEGATIVE Urine Fentanyl Screen Neg NEGATIVE Urine Barbiturates Screen Neg NEGATIVE Urine Phencyclidine Screen Neg NEGATIVE Urine Amphetamines Screen Neg NEGATIVE Urine Benzodiazepines Screen Neg NEGATIVE Urine Cocaine Screen Neg NEGATIVE Urine Cannabinoids Screen Neg NEGATIVE Hemoglobin A1c 8.2 H <5.7 % A1C Magnesium Level 2.3 1.6-2.6 mg/dL Total Bilirubin 0.6 0.2-1.0 mg/dL Aspartate Amino Transferase (AST) 9 L 13-40 U/L Alanine Aminotransferase (ALT) 15 7-40 U/L Alkaline Phosphatase 62 46-116 U/L Total Protein 6.7 5.7-8.2 g/dL Albumin 3.8 3.2-4.8 g/dL Test 02/06/25 20:55 02/06/25 17:33 Range/Units C-Reactive Protein High Sensitivity 15.84 H <1.0 mg/dL Vitamin B12 Level 386 211-911 pg/mL Vitamin D 25-Hydroxy 35.1 30.0-100 ng/mL Folic Acid 18.38 >5.38 ng/mL Thyroid Stimulating Hormone (TSH) 1.15 0.55-4.78 uIU/mL Erythrocyte Sedimentation Rate 50 H 0-20 mm/hr Lactic Acid Level 1.3 0.4-2.0 mmol/L Plasma/Serum Blood Alcohol < 3.0 <10 mg/dL Microbiology Date/Time Source Procedure Growth Status 02/08/25 13:05 Foot Left Gram Stain - Final Resulted 02/08/25 13:05 Foot Left Anaerobic Culture - Preliminary Resulted 02/08/25 13:05 Foot Left Aerobic Culture - Preliminary Resulted 02/07/25 13:21 Voided Urine Urine Culture - Final Complete 02/06/25 17:43 Blood Blood Culture - Preliminary NO GROWTH AFTER 48 HOURS OF INCUBATION. Resulted Bilateral Lower Extremity Arterial Duplex Clinical History: Bilateral leg swelling Comparison: None Technique: Duplex Doppler evaluation including color Doppler and spectral/pulsed waveform analysis of the lower extremity arteries was performed. Findings: RIGHT: Peak systolic velocities are less than 150 cm/sec. The waveforms are triphasic with diastolic flow. LEFT: 167 cm/sec in the distal superficial femoral artery. All other Peak systolic velocities are less than 150 cm/sec. The waveforms are monophasic in the dorsalis pedis. IMPRESSION: No hemodynamically significant stenosis based on peak systolic velocity criteria on the right. 20-49% stenosis of the left distal superficial femoral artery based on peak sy stolic velocity criteria. Assessment No significant pad. Cont current care as per podiatry. ADÁN BOLTON Jr., MD February 09, 2025 12:20
--- NOTE | 2025-02-09 17:17 | DVHPNRES ---
Progress Note Date Seen: February 09, 2025 Resident Creating Document: MADHU REID RESIDENT Has the PT tested + for MRSA If YES, has PT been informed?: No Medical Necessity Reason Pt with a Central, PICC or Fol: No Medical Necessity Reason 02/09: Patient is resting in bed has no complaint. WBC is stable. He is status post i ncision and drainage yesterday. Foot is currently bandaged and patient has no pain. He is doing well and currently being followed by the telephone services sales representative. Per the telephone services sales representative plan, patient will be taken back to the OR tomorrow because it was determined that multiple I & D will be needed to save his limb. Subjective Review of Systems Constitutional: Denies fever no chills no feeling of malaise HEENT: Denies headache, ear pain, ear discharges, conjunctivitis, nasal discharge throat pain Cardiovascular: Denies chest pain, palpitation, orthopnea, PND, or pedal edema Respiratory: Denies shortness of breath, cough cough, sputum production, hemoptysis, GI: Denies abdominal pain, nausea, vomiting, diarrhea, hematemesis, hematochezia, : Denies frequency, urgency, hematuria, Endocrine: Denies unintentional weight gain or weight loss, feeling of hot flashes, Jose E: Denies easy bruising, bleeding disorders, epistaxis Musculoskeletal: Denies joint pains, muscle aches Psych: No evidence of depression, rhona, suicidal ideation Objective vital signs Vital Sign Date Time Temp Pulse Resp B/P (MAP) Pulse Ox O2 Delivery O2 Flow Rate FiO2 02/09/25 12:48 97.8 84 20 119/75 (90) 97 97.8 02/09/25 08:00 Room Air* 0 21 Total Intake and Output 02/08/25 02/08/25 02/09/25 15:00 23:00 07:00 Intake Total 200 ml 500 ml 500 ml Output Total 600 ml 1000 ml Balance 200 ml -100 ml -500 ml medications Current Medications Medications Dose Ordered Sig/Sandra Route Start Time Stop Time Status Last Admin Dose Admin Sodium Chloride 10 ml Q8HR IV 02/06/25 22:00 02/09/25 13:42 10 ML Acetaminophen/ Hydrocodone Bitart 1 tab Q4HP PRN PO 02/06/25 20:45 02/08/25 22:57 1 TAB Ondansetron HCl 4 mg Q4HP PRN IV 02/06/25 20:45 02/06/25 21:06 4 MG Enoxaparin Sodium 40 mg DAILY SC 02/07/25 10:00 02/09/25 09:40 40 MG Acetaminophen 650 mg Q6HP PRN PO 02/06/25 20:45 02/06/25 22:47 650 MG Vancomycin HCl 0 ml @ 0 mls/hr UD IV 02/06/25 20:45 Pantoprazole Sodium 40 mg DAILY IV 02/07/25 10:00 02/09/25 09:40 40 MG Diagnostic Test (Pha) 1 strip ACHS 02/06/25 22:00 02/09/25 11:20 1 STRIP Insulin Human Regular ACHS SC 02/06/25 22:00 02/09/25 11:20 2 UNITS Dextrose 50 ml UD PRN IV 02/06/25 21:00 Vancomycin HCl 300 ml @ 200 mls/hr Q12H IV 02/08/25 23:00 02/09/25 11:07 200 MLS/HR Piperacillin Sod/ Tazobactam Sod 100 ml @ 25 mls/hr Q6H IV 02/09/25 00:00 02/09/25 13:41 25 MLS/HR Insulin Glargine 22 units DAILY@1000 SC 02/09/25 10:00 02/09/25 09:38 22 UNITS Examination General Appearance: Alert, Oriented X3, Cooperative, No acute distress HEENT: Atraumatic, PERRLA, EOMI, Mucous membrane moist/pink Respiratory: Clear to auscultation, Normal air movement Cardiovascular: Regular rate, Normal S1, Normal S2, No murmurs, no chest wall tenderness Abdominal: NO distention, no tenderness, bowel sounds present, no scars noted Extremities: Left leg Band-Aid no discharges noted; right leg is unremarkable no lesions noted Skin: No lashes in down or any significant needed on the right foot Neuro: Normal gait, Normal speech, Strength at 5/5 X4 ext, Normal tone, Sensation intact, Cranial nerves 3-12 NL, Reflexes 2+ Psych/Mental Status: Mental status NL, Mood NL laboratory and microbiology Laboratory Tests 02/09/25 05:08 02/09/25 05:07 Test 02/09/25 05:07 Range/Units Serum Glucose 132 H 74-106 mg/dL Microbiology Date/Time Source Procedure Growth Status 02/08/25 13:05 Foot Left Gram Stain - Final Resulted 02/08/25 13:05 Foot Left Anaerobic Culture - Preliminary Resulted 02/08/25 13:05 Foot Left Aerobic Culture - Preliminary Resulted 02/07/25 13:21 Voided Urine Urine Culture - Final Complete 02/06/25 17:43 Blood Blood Culture - Preliminary NO GROWTH AFTER 48 HOURS OF INCUBATION. Resulted Problem List/Assessment/Plan Problem List/Assessment/Plan Assessment Sepsis likely due to left foot cellulitis Acute Left foot cellulitis. S/P incision and drainage 02/08/2025 Acute Osteomylittis of the second toe ( MRI Osteomyelitis in the 2nd proximal and middle phalanx) Bluish discoloration change in the left 3rd toe; Arterial doppler: 20-49% stenosis of the left distal superficial femoral artery based on peak systolic velocity criteria. PAD left leg Diabetes mellitus type2 HGB A1c 8.2 Diabetic neuropathy Negative for DVT Leukocytosis Left distal superficial femoral artery stenosis Plan Zosyn and vancomycin Pending wound and blood culture Vascular surgery consult Pending wound care consult Mild insulin sliding scale Pain medication and other PRN Zofran Lantus 22 daily here Continue home medications Patient will return to OR tomorrow NPO overnight Goal of care discussed for more than 16 minutes: Full code Case and plan discussed with Dr. Vick Plan discussed with: Patient My Orders My Orders Orders - MADHU REID Procedure Category Date Status Time Piperacillin-Tazob PHA 02/09/25 In Process 3.375gm (Zosyn 3.375g 00:00 Insulin Lantus PHA 02/09/25 In Process (Glargine) (Lantus) 10:00 Date of Service: February 09, 2025 Billing Provider: PEDRO VICK MD Common Visit Codes: [id number] INP/OBS CARE(HIGH) MADHU REID February 09, 2025 17:16 PEDRO VICK MD February 09, 2025 18:03
[2025-02-10 05:00] VITALS: BP 142/90; PULSE 80; RESP 18; TEMP 98; O2SAT 92
[2025-02-10] MEDS: PIPERACILLIN-TAZOB 3.375GM 100 ML IV SCH ×2 (06:13→15:38)
[2025-02-10 07:32] LABS: Basophils # (auto) 0.1 10 ^3/uL (0-0.2); Basophils % (auto) 0.6 % (0.0-2.0); Eosinophils # (auto) 0 10 ^3/uL (0-0.8); Eosinophils % (auto) 0.1 % (0.0-7.0); Hematocrit 38.8 % (41.0-53.0); Hemoglobin 12.8 g/dL (13.5-17.5); Lymphocytes # (auto) 0.6 10 ^3/uL (0.4-5.4); Lymphocytes % (auto) 5.9 % (10.0-50.0); Mean Corpuscular Hemoglobin 28.9 pg (28.0-32.0); Mean Corpuscular Hgb Conc. 32.9 g/dL (32.0-36.0); Mean Corpuscular Volume 87.9 fL (80.0-100.0); Monocytes # (auto) 0.3 10 ^3/uL (0-1.3); Monocytes % (auto) 2.7 % (0.0-12.0); Neutrophils # (auto) 9.4 10 ^3/uL (1.6-8.6); Neutrophils % (auto) 90.7 % (37.0-80.0); Platelet Count (auto) 390 10^3/uL (140-450); Red Blood Cells 4.42 10^6/uL (4.5-5.90); Red Cell Distribution Width 15.5 % (11.8-14.3); White Blood Cell 10.3 10^3/uL (4.4-10.8)
--- NOTE | 2025-02-10 07:32 | DVHPNRES ---
Progress Note Date Seen: February 10, 2025 Resident Creating Document: MADHU REID RESIDENT Has the PT tested + for MRSA If YES, has PT been informed?: No Medical Necessity Reason Pt with a Central, PICC or Fol: No Medical Necessity Reason 02/10/2025 Patient seen and examined. He has no complaints.He is going back to the OR today for revaluation and debridement. Wound culture grew Pseudomonas aeruginosa which is sensitive to multiple antibiotics including Zosyn. Patient is currently on Zosyn and vancomycin. We will stop the vancomycin and continue Zosyn. Patient was also seen by the the vascular surgeon. He recommend continues management by family practitioner. Continue current management. Plan for discharge home tomorrow Subjective Review of Systems Constitutional: Denies fever no chills no feeling of malaise HEENT: Denies headache, ear pain, ear discharges, conjunctivitis, nasal discharge throat pain Cardiovascular: Denies chest pain, palpitation, orthopnea, PND, or pedal edema Respiratory: Denies shortness of breath, cough cough, sputum production, hemoptysis, GI: Denies abdominal pain, nausea, vomiting, diarrhea, hematemesis, hematochezia, : Denies frequency, urgency, hematuria, Endocrine: Denies unintentional weight gain or weight loss, feeling of hot flashes, Jose E: Denies easy bruising, bleeding disorders, epistaxis Musculoskeletal: Denies joint pains, muscle aches Psych: No evidence of depression, rhona, suicidal ideation Objective vital signs Vital Sign Date Time Temp Pulse Resp B/P (MAP) Pulse Ox O2 Delivery O2 Flow Rate FiO2 02/10/25 05:00 98.0 80 18 142/90 (107) 92 98.0 02/09/25 20:00 Room Air* 0 21 Total Intake and Output 02/09/25 02/09/25 02/10/25 15:00 23:00 07:00 Intake Total 400 ml 700 ml 300 ml Output Total 1600 ml Balance 400 ml 700 ml -1300 ml medications Current Medications Medications Dose Ordered Sig/Sandra Route Start Time Stop Time Status Last Admin Dose Admin Sodium Chloride 10 ml Q8HR IV 02/06/25 22:00 02/10/25 06:13 10 ML Acetaminophen/ Hydrocodone Bitart 1 tab Q4HP PRN PO 02/06/25 20:45 02/08/25 22:57 1 TAB Ondansetron HCl 4 mg Q4HP PRN IV 02/06/25 20:45 02/06/25 21:06 4 MG Enoxaparin Sodium 40 mg DAILY SC 02/07/25 10:00 02/09/25 09:40 40 MG Acetaminophen 650 mg Q6HP PRN PO 02/06/25 20:45 02/06/25 22:47 650 MG Vancomycin HCl 0 ml @ 0 mls/hr UD IV 02/06/25 20:45 Pantoprazole Sodium 40 mg DAILY IV 02/07/25 10:00 02/09/25 09:40 40 MG Diagnostic Test (Pha) 1 strip ACHS 02/06/25 22:00 02/10/25 06:13 1 STRIP Insulin Human Regular ACHS SC 02/06/25 22:00 02/10/25 06:15 4 UNITS Dextrose 50 ml UD PRN IV 02/06/25 21:00 Vancomycin HCl 300 ml @ 200 mls/hr Q12H IV 02/08/25 23:00 02/10/25 00:02 200 MLS/HR Insulin Glargine 22 units DAILY@1000 SC 02/09/25 10:00 02/09/25 09:38 22 UNITS Piperacillin Sod/ Tazobactam Sod 100 ml @ 25 mls/hr Q6H IV 02/10/25 07:00 02/10/25 06:13 25 MLS/HR Examination General Appearance: Alert, Oriented X3, Cooperative, No acute distress HEENT: Atraumatic, PERRLA, EOMI, Mucous membrane moist/pink Respiratory: Clear to auscultation, Normal air movement Cardiovascular: Regular rate, Normal S1, Normal S2, No murmurs, no chest wall tenderness Abdominal: NO distention, no tenderness, bowel sounds present, no scars noted Extremities: No clubbing, No cyanosis, No edema, Normal pulses, No tenderness/swelling; Left foot covered in bandage Skin: Right foot ok. Left s/p I &d Neuro: Normal gait, Normal speech, Strength at 5/5 X4 ext, Normal tone, Sensation intact, Cranial nerves 3-12 NL, Reflexes 2+ Psych/Mental Status: Mental status NL, Mood NL laboratory and microbiology Test 02/10/25 06:51 Range/Units Serum Glucose Pending Microbiology Date/Time Source Procedure Growth Status 02/08/25 13:05 Foot Left Gram Stain - Final Resulted 02/08/25 13:05 Foot Left Anaerobic Culture - Preliminary Resulted 02/08/25 13:05 Foot Left Aerobic Culture - Preliminary Resulted 02/07/25 13:21 Voided Urine Urine Culture - Final Complete 02/06/25 17:43 Blood Blood Culture - Preliminary NO GROWTH AFTER 72 HOURS OF INCUBATION. Resulted Problem List/Assessment/Plan Problem List/Assessment/Plan Assessment Sepsis likely due to left foot cellulitis Acute Left foot cellulitis. S/P incision and drainage 02/08/2025 Acute Osteomylittis of the second toe ( MRI Osteomyelitis in the 2nd proximal and middle phalanx) Bluish discoloration change in the left 3rd toe; Arterial doppler: 20-49% stenosis of the left distal superficial femoral artery based on peak systolic velocity criteria. PAD left leg Diabetes mellitus type2 HGB A1c 8.2 Diabetic neuropathy Negative for DVT Leukocytosis Left distal superficial femoral artery stenosis Wound culture grew Pseudomonas aeruginosa Plan Zosyn Mild insulin sliding scale Pain medication and other PRN Zofran Lantus 22 daily here Continue home medications Goal of care discussed for more than 16 minutes: Full code Case and plan discussed with Dr. Vick Plan discussed with: Patient My Orders My Orders Orders - MADHU REID RESIDENT Procedure Category Date Status Time Insulin Lantus PHA 02/09/25 In Process (Glargine) (Lantus) 10:00 Basic Metabolic Panel LAB 02/10/25 In Process 04:00 Complete Blood Count LAB 02/10/25 In Process 04:00 Piperacillin-Tazob PHA 02/10/25 In Process 3.375gm (Zosyn 3.375g 07:00 Date of Service: February 10, 2025 Billing Provider: PEDRO VICK MD Common Visit Codes: [id number] INP/OBS CARE(HIGH) MADHU REID RESIDENT February 10, 2025 07:32 PEDRO VICK MD February 12, 2025 18:42
[2025-02-10 07:55] LABS: Chloride 104 mmol/L (98-107); Potassium 4.7 mmol/L (3.5-5.1); Sodium 139 mmol/L (136-145)
[2025-02-10 07:56] LABS: Anion Gap 9 (5-15); Carbon Dioxide 26 mmol/L (20-31)
[2025-02-10 07:57] LABS: Calcium 9.2 mg/dL (8.7-10.4)
[2025-02-10 08:01] LABS: BUN/Creatinine Ratio 12.3 (10.0-20.0); Blood Urea Nitrogen 10 mg/dL (9-23)
[2025-02-10 08:03] LABS: Glucose 258 mg/dL (74-106)
[2025-02-10 09:30] VITALS: BP 149/95; PULSE 78; RESP 18; TEMP 97.7; O2SAT 97
[2025-02-10] MEDS ORDERED: MIDAZOLAM HCL 2MG/2ML 2ml VIAL (1mg/ml) ONE (10:41)
[2025-02-10] MEDS ORDERED: fentaNYL CITRATE 100 MCG/2 ML VL ONE (10:41)
[2025-02-10] MEDS ORDERED: ONDANSETRON HCL 4 MG/2 ML VIAL ONE (10:42)
[2025-02-10] MEDS ORDERED: METOCLOPRAMIDE HCL 5MG/ml INJ 2ml VIAL ONE (10:42)
[2025-02-10] MEDS ORDERED: LIDOCAINE 2% (LOCAL ANESTH.) PF 5ml SDV ONE (10:42)
[2025-02-10] MEDS ORDERED: PROPOFOL 10 MG/ML 20 ML IV ONE (10:42)
[2025-02-10] MEDS ORDERED: HYDROmorphone HCL 2 MG/ML VL/or syr IV PRN (10:45)
[2025-02-10] MEDS: BUPIVACAINE 0.5% P/F INJ 10 ML VIAL ONE (11:26)
[2025-02-10 11:34] VITALS: PULSE 71; RESP 15; O2SAT 98
--- NOTE | 2025-02-10 11:35 | DVHPN2 ---
Subjective Patient is 49 years old male with past medical history of diabetes mellitus came with a complaint of left foot wound. As per patient he has been having left foot wound for last 1 week, it started with the left foot swelling and erythema gradually got worse and starting having skin color changes especially on the 3rd toe on the left. Patient also having some discharge from the left foot for the same duration. Patient denied any pain. As per patient he was wearing the same shoes that was putting pressure of the left foot but never change it. Patient denied any chest pain or shortness of breath, dysuria, acute joint redness to other joint. Initial lab workup revealed leukocytosis WBC 18.2, neutrophil 85.5, ESR 50, sodium 133, HGB A1c 8.2. CT left foot significant for cellulitis. Soft tissue gas is seen between the 2nd and 3rd digits suggestive of infectious / inflammatory process. Fat stranding and phlegmonous changes are seen throughout the left foot which likely reflects sequelae of cellulitis. Changes from previous H/P or p: No Changes Objective Vitals Vital Signs Date Time Temp Pulse Resp B/P (MAP) Pulse Ox O2 Delivery O2 Flow Rate FiO2 02/10/25 09:30 97.7 78 18 149/95 (113) 97 97.7 02/10/25 08:00 Room Air* 0 21 Intake/Output Intake and Output 02/10/25 07:00 Intake Total 1400 ml Output Total 1600 ml Balance -200 ml Intake Oral 800 ml IV Total 600 ml Output Urine Total 1600 ml # Voids 4 Exam Dermatological: Skin is dry with mild erythema and some maceration around the wound site No gross deformities noted Mild non-pitting edema present bilaterally Left foot area of fluctuance with erythema and malodor Vascular: Dorsalis pedis and posterior tibial pulses are 1+ bilaterally Capillary refill is under 2 seconds Skin temperature is warm bilaterally Neurologic: Protective sensation is absent on the plantar forefoot bilaterally Monofilament testing reveals decreased sensation in multiple plantar sites Musculoskeletal: Range of motion at the ankle and MTP joints is within normal limits. Strength is 5/5 in all tested muscle groups. Gait is antalgic due to offloading of the affected limb. Medications Current Medications Medications Dose Ordered Sig/Sandra Route Start Time Stop Time Status Last Admin Dose Admin Sodium Chloride 10 ml Q8HR IV 02/06/25 22:00 02/10/25 06:13 10 ML Acetaminophen/ Hydrocodone Bitart 1 tab Q4HP PRN PO 02/06/25 20:45 02/08/25 22:57 1 TAB Ondansetron HCl 4 mg Q4HP PRN IV 02/06/25 20:45 02/06/25 21:06 4 MG Enoxaparin Sodium 40 mg DAILY SC 02/07/25 10:00 02/09/25 09:40 40 MG Acetaminophen 650 mg Q6HP PRN PO 02/06/25 20:45 02/06/25 22:47 650 MG Vancomycin HCl 0 ml @ 0 mls/hr UD IV 02/06/25 20:45 Pantoprazole Sodium 40 mg DAILY IV 02/07/25 10:00 02/10/25 09:35 40 MG Diagnostic Test (Pha) 1 strip ACHS 02/06/25 22:00 02/10/25 06:13 1 STRIP Insulin Human Regular ACHS SC 02/06/25 22:00 02/10/25 06:15 4 UNITS Dextrose 50 ml UD PRN IV 02/06/25 21:00 Vancomycin HCl 300 ml @ 200 mls/hr Q12H IV 02/08/25 23:00 02/10/25 00:02 200 MLS/HR Insulin Glargine 22 units DAILY@1000 SC 02/09/25 10:00 02/09/25 09:38 22 UNITS Piperacillin Sod/ Tazobactam Sod 100 ml @ 25 mls/hr Q6H IV 02/10/25 07:00 02/10/25 06:13 25 MLS/HR Laboratory Results Laboratory Tests 02/10/25 06:51 Chemistry Test 02/10/25 06:51 Calcium Level 9.2 mg/dL (8.7-10.4) Urinalysis Test 02/07/25 13:21 Urine Color Yellow (Yellow) Urine Clarity Clear (Clear) Urine pH 5.5 (5.0-9.0) Urine Specific [place] 1.031 (1.001-1.035) Urine Protein Negative (Negative) Urine Ketones 3+ (Negative) H Urine Blood Negative /uL (Negative) Urine Nitrite Negative (Negative) Urine Bilirubin Negative (Negative) Urine Urobilinogen Normal mg/dL (Negative) Urine Leukocyte Esterase Negative /uL (Negative) Urine RBC None seen /hpf (0 - 3) Urine Microscopic WBC < 1 /HPF (0-3) Urine Squamous Epithelial Cells None seen /hpf (<5) Urine Bacteria None seen /hpf (None Seen) Urine Glucose 4+ mg/dL (Normal) H Microbiology Microbiology Date/Time Source Procedure Growth Status 02/08/25 13:05 Foot Left Gram Stain - Final Resulted 02/08/25 13:05 Foot Left Anaerobic Culture - Preliminary Resulted 02/08/25 13:05 Foot Left Aerobic Culture - Preliminary Resulted 02/07/25 13:21 Voided Urine Urine Culture - Final Complete 02/06/25 17:43 Blood Blood Culture - Preliminary NO GROWTH AFTER 72 HOURS OF INCUBATION. Resulted Assessment/Plan Assessment/Plan ASSESSMENT: Patient is a 49 year old seen on the floor follow up s/p foot I&D PLAN: - The patients chart was reviewed, clinical findings were discussed with the patient, the etiologies of the conditions were discussed in detail, and a treatment plan was agreed to at this time, with both oral and written instructions provided. - reviewed advanced imaging - reviewed all of the labs and pathology - discussed plan is to perform a subsequent incision and drainage - patient has been NPO since midnight - take him to the OR today - it was determined that multiple I&Ds will be necessary to save the limb - evaluted patients both feet and there is excessive dryness and onychomycosis that patient would benefit from routine foot care as an outpatient - can weightbear as tolerated in postoperative shoe All questions were answered and concerns addressed to the patient's satisfaction. The patient was given the phone number to the clinic and was told how to make contact with the clinic should any concerns or questions arise. Patient understands that if any questions or concerns arise prior to the next appointment, we should be contacted immediately. FOLLOW-UP: Continue to follow while inpatient Plan discussed with: Patient My Orders Orders - DEDE DE LEÓN DPM Procedure Category Date Status Time Obtain Consent For: ORDERS 02/09/25 Transmitted 11:48 Npo (Nothing By DIET 02/10/25 Transmitted Mouth) Diet Breakfast Problem List: (1) Cellulitis of left foot (2) Projectile vomiting (3) Electrolyte imbalance (4) Acute respiratory distress (5) Hypotension (6) Diabetic keto-acidosis (7) Nausea & vomiting (8) Disorientation, unspecified (9) DKA, type 2, not at goal (10) Acute renal injury (11) AMS (altered mental status) (12) Gas gangrene (13) Osteomyelitis (14) Necrotizing soft tissue infection Date of Service: February 10, 2025 Billing Provider: DEDE DE LEÓN DPM Common Visit Codes: [id number] INP/OBS CARE(HIGH) DEDE DE LEÓN DPM February 10, 2025 11:35
--- NOTE | 2025-02-10 11:37 | DVHOP2 ---
Operative Report - 2 Report Details Date: 02/10/25 Preop Diagnosis: 1. Left foot osteomyelitis 2. Left foot abscess 3. Left foot gas gangrene 4. Left foot cellulitis Postop Diagnosis: Same as preop Surgeon: Dede De León MD Anesthesiologist: See anesthesia Anesthesia: Mac Consent: The patient was informed of the risks and benefits of the procedure. These include but are not limited to complications of anesthesia, postoperative infection, incomplete relief of symptoms, recurrence of symptoms, damage to blood vessels, nerves and tendons, deep venous thrombosis, pulmonary embolism and possible need for repeat surgery in the future. Complications: None Estimated Blood Loss: Minimal Fluids: See anesthesia Findings: Consistent with diagnosis Indications for Surgery: Worsening foot wound Name of Procedure Performed 1. Left foot I&D to bone third middle foot (50090) 2. Left foot I&D to bone second middle foot (25988) Procedure Details Procedure Details: PRE-PROCEDURE INFORMATION: In the pre-op holding area, the extremity to be operated on was clearly marked and the patient verified correct laterality of the marking. The patient was transferred to the OR table and placed in a supine position. A timeout was performed in which identification of the correct patient, procedure, location, and materials was done. The left foot and leg were prepped and draped in normal sterile fashion. DESCRIPTION OF PROCEDURE: Attention was directed to the left 1st interspace where previous incision was made. An incision was made over this area and was deepened through blunt dissection. The incision was deepened to the level of abscess and bone. Care was taken to the dissection to avoid any neurovascular and tendinous structures. The incision was deepened to the bone, and the abscess appeared to be purulent fluid consistent with pus. The cortices of the bone was then removed with rongeur an all necrotic tissue. After the abscess was drained, the area was irrigated with 3 L normal saline using cysto tubing. Deep cultures were then obtained from the wound. The area was then inspected and any areas of tracking, especially along the tendons were also drained. The wound was packed with Betadine-soaked gauze and we will need to be closed at a later date. Attention was directed to the left 3rd interspace where previous incision was made. An incision was made over this area and was deepened through blunt dissection. The incision was deepened to the level of abscess and bone. Care was taken to the dissection to avoid any neurovascular and tendinous structures. The incision was deepened to the bone, and the abscess appeared to be purulent fluid consistent with pus. The cortices of the bone was then removed with rongeur an all necrotic tissue. After the abscess was drained, the area was irrigated with 3 L normal saline using cysto tubing. The area was then inspected and any areas of tracking, especially along the tendons were also drained. The wound was packed with Betadine-soaked gauze and we will need to be closed at a later date. POSTOPERATIVE INFORMATION: The patient tolerated the above noted procedure and anesthesia well and was transferred to the PACU with vital signs stable, and vascular status intact with capillary refill intact to all digits. Will return to the floor and continue IV antibiotics. Patient will have to return to the OR for subsequent procedure in order to see if the left 3rd toe. Patient can have dressing changes every day with the weekend. With Betadine-soaked gauze Webril and Vinicius bandage lightly placed over the foot Specimen: Left 2nd metatarsal Condition Good Disposition Still a Patient DEDE D ELEÓN DPM February 10, 2025 11:37
[2025-02-10] MEDS: VANCOMYCIN HCL 1000 MG VL ONE (11:43)
[2025-02-10 13:00] VITALS: BP 130/91; PULSE 77; RESP 18; TEMP 97.8; O2SAT 97
[2025-02-10] MEDS: METOCLOPRAMIDE HCL 5MG/ml INJ 2ml VIAL IV ONE (13:39)
[2025-02-10] MEDS: KETOROLAC TROMETH 30 MG/ML 1ML VIAL IV ONE (13:39)
[2025-02-10] MEDS: ONDANSETRON HCL 4 MG/2 ML VIAL IV ONE (13:39)
[2025-02-10 17:30] VITALS: BP 110/65; PULSE 82; RESP 18; TEMP 97.9; O2SAT 96
--- NOTE | 2025-02-10 20:18 | DVHPNRES ---
Progress Note Date Seen: February 10, 2025 Resident Creating Document: MADHU REID RESIDENT Has the PT tested + for MRSA If YES, has PT been informed?: No Medical Necessity Reason Pt with a Central, PICC or Fol: No Medical Necessity Reason 02/10: Patient is seen and examined today at the bedside. He is doing really has no complaint he has an everything has been good. The time of my evaluation patient was pending to be taken to the OR for re-debridement. S at this time he has had the debridement and everything is fine wound culture is back any grew Pseudomonas aeruginosa which is sensitive to many antibiotics including Zosyn which the patient is currently taking. Stopped the vancomycin and continue with the zosyn and plan is probably to this chest patient home on Zosyn for the next 2 weeks. Subjective Review of Systems Constitutional: Denies fever no chills no feeling of malaise HEENT: Denies headache, ear pain, ear discharges, conjunctivitis, nasal discharge throat pain Cardiovascular: Denies chest pain, palpitation, orthopnea, PND, or pedal edema Respiratory: Denies shortness of breath, cough cough, sputum production, hemoptysis, GI: Denies abdominal pain, nausea, vomiting, diarrhea, hematemesis, hematochezia, : Denies frequency, urgency, hematuria, Endocrine: Denies unintentional weight gain or weight loss, feeling of hot flashes, Jose E: Denies easy bruising, bleeding disorders, epistaxis Musculoskeletal: Denies joint pains, muscle aches Psych: No evidence of depression, rhona, suicidal ideation Objective vital signs Vital Sign Date Time Temp Pulse Resp B/P (MAP) Pulse Ox O2 Delivery O2 Flow Rate FiO2 02/10/25 17:30 97.9 82 18 110/65 (80) 96 97.9 02/10/25 11:34 Room Air 0 02/10/25 11:34 98 Total Intake and Output 02/09/25 02/09/25 02/10/25 15:00 23:00 07:00 Intake Total 400 ml 700 ml 300 ml Output Total 1600 ml Balance 400 ml 700 ml -1300 ml medications Current Medications Medications Dose Ordered Sig/Sandra Route Start Time Stop Time Status Last Admin Dose Admin Sodium Chloride 10 ml Q8HR IV 02/06/25 22:00 02/10/25 15:37 10 ML Acetaminophen/ Hydrocodone Bitart 1 tab Q4HP PRN PO 5/25/25 20:45 02/10/25 11:45 1 TAB Ondansetron HCl 4 mg Q4HP PRN IV 02/06/25 20:45 02/06/25 21:06 4 MG Enoxaparin Sodium 40 mg DAILY SC 02/07/25 10:00 02/09/25 09:40 40 MG Acetaminophen 650 mg Q6HP PRN PO 02/06/25 20:45 02/06/25 22:47 650 MG Vancomycin HCl 0 ml @ 0 mls/hr UD IV 02/06/25 20:45 Pantoprazole Sodium 40 mg DAILY IV 02/07/25 10:00 02/10/25 09:35 40 MG Diagnostic Test (Pha) 1 strip ACHS 02/06/25 22:00 02/10/25 17:04 1 STRIP Insulin Human Regular ACHS SC 02/06/25 22:00 02/10/25 17:05 8 UNITS Dextrose 50 ml UD PRN IV 02/06/25 21:00 Vancomycin HCl 300 ml @ 200 mls/hr Q12H IV 02/08/25 23:00 02/10/25 12:43 200 MLS/HR Insulin Glargine 22 units DAILY@1000 SC 02/09/25 10:00 02/09/25 09:38 22 UNITS Piperacillin Sod/ Tazobactam Sod 100 ml @ 25 mls/hr Q6H IV 02/10/25 15:30 02/10/25 15:38 25 MLS/HR Examination General Appearance: Alert, Oriented X3, Cooperative, No acute distress HEENT: Atraumatic, PERRLA, EOMI, Mucous membrane moist/pink Respiratory: Clear to auscultation, Normal air movement Cardiovascular: Regular rate, Normal S1, Normal S2, No murmurs, no chest wall tenderness Abdominal: NO distention, no tenderness, bowel sounds present, no scars noted Extremities: Left leg Band-Aid no discharges noted; right leg is unremarkable no lesions noted Skin: No lashes in down or any significant needed on the right foot Neuro: Normal gait, Normal speech, Strength at 5/5 X4 ext, Normal tone, Sensation intact, Cranial nerves 3-12 NL, Reflexes 2+ Psych/Mental Status: Mental status NL, Mood NL laboratory and microbiology laboratory and microbiology Laboratory Tests 02/10/25 06:51 Test 02/10/25 06:51 Range/Units Serum Glucose 258 #H 74-106 mg/dL Microbiology Date/Time Source Procedure Growth Status 02/08/25 13:05 Foot Left Gram Stain - Final Resulted 02/08/25 13:05 Foot Left Anaerobic Culture - Preliminary Resulted 02/08/25 13:05 Foot Left Aerobic Culture - Preliminary Resulted 02/07/25 13:21 Voided Urine Urine Culture - Final Complete 02/06/25 17:43 Blood Blood Culture - Preliminary NO GROWTH AFTER 72 HOURS OF INCUBATION. Resulted Problem List/Assessment/Plan Problem List/Assessment/Plan Assessment Sepsis likely due to left foot cellulitis Acute Left foot cellulitis. S/P incision and drainage 02/08/2025 Acute Osteomylittis of the second toe ( MRI Osteomyelitis in the 2nd proximal and middle phalanx) Bluish discoloration change in the left 3rd toe; Arterial doppler: 20-49% stenosis of the left distal superficial femoral artery based on peak systolic velocity criteria. PAD left leg Diabetes mellitus type2 HGB A1c 8.2 Diabetic neuropathy Negative for DVT Leukocytosis Left distal superficial femoral artery stenosis Wound culture positive for Pseudomonas aeruginosa sensitive to multiple antibiotics but we will continue with Zosyn as patient is currently on it Plan Zosyn Mild insulin sliding scale Pain medication and other PRN Zofran Lantus 22 daily here Continue home medications OR Today Goal of care discussed for more than 16 minutes: Full code Case and plan discussed with Dr. Vick Plan discussed with: Patient My Orders My Orders Orders - MADHU REID RESIDENT Procedure Category Date Status Time Discontinue Tele ELI 02/10/25 In Process 08:44 Admit ADMIT 02/10/25 Transmitted 08:44 Dietary NOTICE 02/10/25 Transmitted Recommendations 13:43 Piperacillin-Tazob PHA 02/10/25 In Process 3.375gm (Zosyn 3.375g 15:30 Dietary Evaluation Review Comments: 1. CCHO 75gm diet 2. Sean 1 pk BID (ordered per [facility] protocol) 3. Refer to CDE on DC 4. Continue current plan of care Expected Outcomes/Goals: wound to improve PO intake meets at least 75% estimated needs Fu 3-5 days MADHU REID RESIDENT February 10, 2025 20:18
[2025-02-10 21:00] VITALS: BP 135/82; PULSE 96; RESP 18; TEMP 98.2; O2SAT 95
[2025-02-11] VITALS (7 sets, daily range): BP systolic 119–153; BP diastolic 81–103; PULSE 70–87; RESP 18; TEMP 97.6–98.8; O2SAT 95–98
[2025-02-11 11:39] LABS: Basophils # (auto) 0.1 10 ^3/uL (0-0.2); Basophils % (auto) 1.2 % (0.0-2.0); Eosinophils # (auto) 0 10 ^3/uL (0-0.8); Eosinophils % (auto) 0.4 % (0.0-7.0); Hematocrit 38.1 % (41.0-53.0); Hemoglobin 12.8 g/dL (13.5-17.5); Lymphocytes # (auto) 1.1 10 ^3/uL (0.4-5.4); Lymphocytes % (auto) 10.9 % (10.0-50.0); Mean Corpuscular Hgb Conc. 33.5 g/dL (32.0-36.0); Mean Corpuscular Volume 86.7 fL (80.0-100.0); Monocytes # (auto) 0.4 10 ^3/uL (0-1.3); Monocytes % (auto) 3.8 % (0.0-12.0); Neutrophils # (auto) 8.2 10 ^3/uL (1.6-8.6); Neutrophils % (auto) 83.7 % (37.0-80.0); Platelet Count (auto) 422 10^3/uL (140-450); Red Cell Distribution Width 15.3 % (11.8-14.3); White Blood Cell 9.8 10^3/uL (4.4-10.8)
[2025-02-11 11:47] LABS: Chloride 106 mmol/L (98-107); Potassium 4.1 mmol/L (3.5-5.1); Sodium 141 mmol/L (136-145)
[2025-02-11 11:48] LABS: Anion Gap 7 (5-15); Carbon Dioxide 28 mmol/L (20-31)
[2025-02-11 11:49] LABS: Calcium 9.8 mg/dL (8.7-10.4)
[2025-02-11 11:53] LABS: BUN/Creatinine Ratio 14.7 (10.0-20.0); Blood Urea Nitrogen 11 mg/dL (9-23)
[2025-02-11 11:58] LABS: Glucose 162 mg/dL (74-106)
--- NOTE | 2025-02-11 14:09 | DVHPN2 ---
Subjective Patient is 49 years old male with past medical history of diabetes mellitus came with a complaint of left foot wound. As per patient he has been having left foot wound for last 1 week, it started with the left foot swelling and erythema gradually got worse and starting having skin color changes especially on the 3rd toe on the left. Patient also having some discharge from the left foot for the same duration. Patient denied any pain. As per patient he was wearing the same shoes that was putting pressure of the left foot but never change it. Patient denied any chest pain or shortness of breath, dysuria, acute joint redness to other joint. Initial lab workup revealed leukocytosis WBC 18.2, neutrophil 85.5, ESR 50, sodium 133, HGB A1c 8.2. CT left foot significant for cellulitis. Soft tissue gas is seen between the 2nd and 3rd digits suggestive of infectious / inflammatory process. Fat stranding and phlegmonous changes are seen throughout the left foot which likely reflects sequelae of cellulitis. Changes from previous H/P or p: No Changes Objective Vitals Vital Signs Date Time Temp Pulse Resp B/P (MAP) Pulse Ox O2 Delivery O2 Flow Rate FiO2 02/11/25 13:00 97.9 70 18 147/100 (116) 97 97.9 02/11/25 08:15 Room Air* 0 21 Intake/Output Intake and Output 02/11/25 07:00 Intake Total 1900 ml Output Total 900 ml Balance 1000 ml Intake Oral 1600 ml IV Total 300 ml Output Urine Total 900 ml # Voids 3 Exam Dermatological: Skin is dry with mild erythema and some maceration around the wound site No gross deformities noted Mild non-pitting edema present bilaterally Left foot area of fluctuance with erythema and malodor Vascular: Dorsalis pedis and posterior tibial pulses are 1+ bilaterally Capillary refill is under 2 seconds Skin temperature is warm bilaterally Neurologic: Protective sensation is absent on the plantar forefoot bilaterally Monofilament testing reveals decreased sensation in multiple plantar sites Musculoskeletal: Range of motion at the ankle and MTP joints is within normal limits. Strength is 5/5 in all tested muscle groups. Gait is antalgic due to offloading of the affected limb. Medications Current Medications Medications Dose Ordered Sig/Sandra Route Start Time Stop Time Status Last Admin Dose Admin Sodium Chloride 10 ml Q8HR IV 02/06/25 22:00 02/11/25 13:54 10 ML Acetaminophen/ Hydrocodone Bitart 1 tab Q4HP PRN PO 02/06/25 20:45 02/11/25 12:58 1 TAB Ondansetron HCl 4 mg Q4HP PRN IV 02/06/25 20:45 02/06/25 21:06 4 MG Enoxaparin Sodium 40 mg DAILY SC 02/07/25 10:00 02/11/25 09:23 40 MG Acetaminophen 650 mg Q6HP PRN PO 02/06/25 20:45 02/06/25 22:47 650 MG Pantoprazole Sodium 40 mg DAILY IV 02/07/25 10:00 02/11/25 09:23 40 MG Diagnostic Test (Pha) 1 strip ACHS 02/06/25 22:00 02/11/25 11:04 1 STRIP Insulin Human Regular ACHS SC 02/06/25 22:00 02/11/25 11:11 3 UNITS Dextrose 50 ml UD PRN IV 02/06/25 21:00 Insulin Glargine 22 units DAILY@1000 SC 02/09/25 10:00 02/11/25 09:30 22 UNITS Piperacillin Sod/ Tazobactam Sod 100 ml @ 25 mls/hr Q6H IV 02/10/25 15:30 02/11/25 09:23 25 MLS/HR Laboratory Results Laboratory Tests 02/11/25 11:28 Chemistry Test 02/11/25 11:28 Calcium Level 9.8 mg/dL (8.7-10.4) Urinalysis Test 02/07/25 13:21 Urine Color Yellow (Yellow) Urine Clarity Clear (Clear) Urine pH 5.5 (5.0-9.0) Urine Specific [place] 1.031 (1.001-1.035) Urine Protein Negative (Negative) Urine Ketones 3+ (Negative) H Urine Blood Negative /uL (Negative) Urine Nitrite Negative (Negative) Urine Bilirubin Negative (Negative) Urine Urobilinogen Normal mg/dL (Negative) Urine Leukocyte Esterase Negative /uL (Negative) Urine RBC None seen /hpf (0 - 3) Urine Microscopic WBC < 1 /HPF (0-3) Urine Squamous Epithelial Cells None seen /hpf (<5) Urine Bacteria None seen /hpf (None Seen) Urine Glucose 4+ mg/dL (Normal) H Microbiology Microbiology Date/Time Source Procedure Growth Status 02/08/25 13:05 Foot Left Gram Stain - Final Resulted 02/08/25 13:05 Foot Left Anaerobic Culture - Preliminary Resulted 02/08/25 13:05 Foot Left Aerobic Culture - Preliminary Resulted 02/07/25 13:21 Voided Urine Urine Culture - Final Complete 02/06/25 17:43 Blood Blood Culture - Preliminary NO GROWTH AFTER 72 HOURS OF INCUBATION. Resulted Assessment/Plan Assessment/Plan ASSESSMENT: Patient is a 49 year old seen on the floor follow up s/p foot I&D PLAN: - The patients chart was reviewed, clinical findings were discussed with the patient, the etiologies of the conditions were discussed in detail, and a treatment plan was agreed to at this time, with both oral and written instructions provided. - reviewed advanced imaging - reviewed all of the labs and pathology - discussed plan is to perform a subsequent incision and drainageAnd closure on Friday - patient we will be NPO on Friday night - take him to the OR Friday - it was determined that multiple I&Ds will be necessary to save the limb - evaluted patients both feet and there is excessive dryness and onychomycosis that patient would benefit from routine foot care as an outpatient - can weightbear as tolerated in postoperative shoe All questions were answered and concerns addressed to the patient's satisfaction. The patient was given the phone number to the clinic and was told how to make contact with the clinic should any concerns or questions arise. Patient understands that if any questions or concerns arise prior to the next appointment, we should be contacted immediately. FOLLOW-UP: Continue to follow while inpatient Plan discussed with: Patient Problem List: (1) Cellulitis of left foot (2) Projectile vomiting (3) Electrolyte imbalance (4) Acute respiratory distress (5) Hypotension (6) Diabetic keto-acidosis (7) Nausea & vomiting (8) Disorientation, unspecified (9) DKA, type 2, not at goal (10) Acute renal injury (11) AMS (altered mental status) (12) Gas gangrene (13) Osteomyelitis (14) Necrotizing soft tissue infection Date of Service: February 11, 2025 Billing Provider: DEDE DE LEÓN DPM Common Visit Codes: [id number] INP/OBS CARE(HIGH) DEDE DE LEÓN DPM February 11, 2025 14:09
--- NOTE | 2025-02-11 15:59 | DVHPNRES ---
Progress Note Date Seen: February 11, 2025 Resident Creating Document: MADHU REID RESIDENT Has the PT tested + for MRSA If YES, has PT been informed?: No Medical Necessity Reason Pt with a Central, PICC or Fol: No Medical Necessity Reason Patient is seen and examined. He is feeling much no pain started in his boot food is currently doing covered banding also followed by the dredge or barge shore hand. Wound culture came back positive for Pseudomonas aeruginosa which is sensitive to Zosyn. Patient was seen today by the dredge or barge shore hand again and his plan is to perform subsequently incision and drainage and wound closure on Friday after that discharge be put in order. Subjective Review of Systems Constitutional: Denies fever no chills no feeling of malaise HEENT: Denies headache, ear pain, ear discharges, conjunctivitis, nasal discharge throat pain Cardiovascular: Denies chest pain, palpitation, orthopnea, PND, or pedal edema Respiratory: Denies shortness of breath, cough cough, sputum production, hemoptysis, GI: Denies abdominal pain, nausea, vomiting, diarrhea, hematemesis, hematochezia, : Denies frequency, urgency, hematuria, Endocrine: Denies unintentional weight gain or weight loss, feeling of hot flashes, Jose E: Denies easy bruising, bleeding disorders, epistaxis Musculoskeletal: Denies joint pains, muscle aches Psych: No evidence of depression, rhona, suicidal ideation Objective vital signs Vital Sign Date Time Temp Pulse Resp B/P (MAP) Pulse Ox O2 Delivery O2 Flow Rate FiO2 02/11/25 13:00 97.9 70 18 147/100 (116) 97 97.9 02/11/25 08:15 Room Air* 0 21 Total Intake and Output 02/10/25 02/10/25 02/11/25 15:00 23:00 07:00 Intake Total 200 ml 600 ml 1100 ml Output Total 900 ml Balance 200 ml 600 ml 200 ml medications Current Medications Medications Dose Ordered Sig/Sandra Route Start Time Stop Time Status Last Admin Dose Admin Sodium Chloride 10 ml Q8HR IV 02/06/25 22:00 02/11/25 13:54 10 ML Acetaminophen/ Hydrocodone Bitart 1 tab Q4HP PRN PO 02/06/25 20:45 02/11/25 12:58 1 TAB Ondansetron HCl 4 mg Q4HP PRN IV 02/06/25 20:45 02/06/25 21:06 4 MG Enoxaparin Sodium 40 mg DAILY SC 02/07/25 10:00 02/11/25 09:23 40 MG Acetaminophen 650 mg Q6HP PRN PO 02/06/25 20:45 02/06/25 22:47 650 MG Pantoprazole Sodium 40 mg DAILY IV 02/07/25 10:00 02/11/25 09:23 40 MG Diagnostic Test (Pha) 1 strip ACHS 02/06/25 22:00 02/11/25 11:04 1 STRIP Insulin Human Regular ACHS SC 02/06/25 22:00 02/11/25 11:11 3 UNITS Dextrose 50 ml UD PRN IV 02/06/25 21:00 Insulin Glargine 22 units DAILY@1000 SC 02/09/25 10:00 02/11/25 09:30 22 UNITS Piperacillin Sod/ Tazobactam Sod 100 ml @ 25 mls/hr Q6H IV 02/10/25 15:30 02/11/25 15:22 25 MLS/HR Examination General Appearance: Alert, Oriented X3, Cooperative, No acute distress HEENT: Atraumatic, PERRLA, EOMI, Mucous membrane moist/pink Respiratory: Clear to auscultation, Normal air movement Cardiovascular: Regular rate, Normal S1, Normal S2, No murmurs, no chest wall tenderness Abdominal: NO distention, no tenderness, bowel sounds present, no scars noted Extremities: No clubbing, No cyanosis, No edema, Normal pulses, No tenderness/swelling; Left foot covered in bandage Skin: Right foot ok. Left s/p I &d Neuro: Normal gait, Normal speech, Strength at 5/5 X4 ext, Normal tone, Sensation intact, Cranial nerves 3-12 NL, Reflexes 2+ Psych/Mental Status: Mental status NL, Mood NL laboratory and microbiology Laboratory Tests 02/11/25 11:28 Test 02/11/25 11:28 Range/Units Serum Glucose 162 H 74-106 mg/dL Microbiology Date/Time Source Procedure Growth Status 02/08/25 13:05 Foot Left Gram Stain - Final Resulted 02/08/25 13:05 Foot Left Anaerobic Culture - Preliminary Resulted 02/08/25 13:05 Foot Left Aerobic Culture - Preliminary Resulted 02/07/25 13:21 Voided Urine Urine Culture - Final Complete 02/06/25 17:43 Blood Blood Culture - Preliminary NO GROWTH AFTER 72 HOURS OF INCUBATION. Resulted Problem List/Assessment/Plan Problem List/Assessment/Plan Assessment Sepsis likely due to left foot cellulitis Acute Left foot cellulitis. S/P incision and drainage 02/08/2025 Acute Osteomylittis of the second toe ( MRI Osteomyelitis in the 2nd proximal and middle phalanx) Bluish discoloration change in the left 3rd toe; Arterial doppler: 20-49% stenosis of the left distal superficial femoral artery based on peak systolic velocity criteria. PAD left leg Diabetes mellitus type2 HGB A1c 8.2 Diabetic neuropathy Negative for DVT Leukocytosis Left distal superficial femoral artery stenosis Wound culture grew Pseudomonas aeruginosa Plan Zosyn Mild insulin sliding scale Pain medication and other PRN Zofran Lantus 22 daily here Continue home medications For subsequent incision and drainageAnd closure on Friday02/14/2025 - patient we will be NPO on Friday night Goal of care discussed for more than 16 minutes: Full code Case and plan discussed with Dr. Vick Plan discussed with: Patient Dietary Evaluation Review Comments: 1. CCHO 75gm diet 2. Sean 1 pk BID (ordered per [facility] protocol) 3. Refer to CDE on DC 4. Continue current plan of care Expected Outcomes/Goals: wound to improve PO intake meets at least 75% estimated needs Fu 3-5 days Date of Service: February 11, 2025 Billing Provider: PEDRO VICK MD Common Visit Codes: [id number] INP/OBS CARE(HIGH) MADHU REID RESIDENT February 11, 2025 15:59 PEDRO VICK MD February 11, 2025 19:11
[2025-02-11] MEDS: MELATONIN 5 MG TAB PO ONE (21:27)
[2025-02-11] MEDS ORDERED: MELATONIN 5 MG TAB PO ONE (22:00)
[2025-02-12] VITALS (7 sets, daily range): BP systolic 107–154; BP diastolic 74–96; PULSE 67–79; RESP 17–18; TEMP 96.7–98; O2SAT 96–100
--- NOTE | 2025-02-12 18:43 | DVHPN2 ---
Subjective in bed resting Changes from previous H/P or p: No Changes Objective Vitals Vital Signs Date Time Temp Pulse Resp B/P (MAP) Pulse Ox O2 Delivery O2 Flow Rate FiO2 02/12/25 16:35 97.2 72 17 118/82 (94) 96 97.2 02/12/25 08:05 Room Air* 0 21 Intake/Output Intake and Output 02/12/25 07:00 Intake Total 2200 ml Balance 2200 ml Intake Oral 1800 ml IV Total 400 ml # Voids 8 # Bowel Movements 1 General Appearance: Alert, Oriented X3 Lungs: Clear to auscultation Cardiovascular: Regular rate, Normal S1, Normal S2 Medications Current Medications Medications Dose Ordered Sig/Sandra Route Start Time Stop Time Status Last Admin Dose Admin Sodium Chloride 10 ml Q8HR IV 02/06/25 22:00 02/12/25 13:55 10 ML Acetaminophen/ Hydrocodone Bitart 1 tab Q4HP PRN PO 02/06/25 20:45 02/11/25 22:51 1 TAB Ondansetron HCl 4 mg Q4HP PRN IV 02/06/25 20:45 02/06/25 21:06 4 MG Enoxaparin Sodium 40 mg DAILY SC 02/07/25 10:00 02/12/25 09:12 40 MG Acetaminophen 650 mg Q6HP PRN PO 02/06/25 20:45 02/11/25 16:13 650 MG Pantoprazole Sodium 40 mg DAILY IV 02/07/25 10:00 02/12/25 09:12 40 MG Diagnostic Test (Pha) 1 strip ACHS 02/06/25 22:00 02/12/25 17:22 1 STRIP Insulin Human Regular ACHS SC 02/06/25 22:00 02/12/25 17:27 2 UNITS Dextrose 50 ml UD PRN IV 02/06/25 21:00 Insulin Glargine 22 units DAILY@1000 SC 02/09/25 10:00 02/12/25 09:20 22 UNITS Piperacillin Sod/ Tazobactam Sod 100 ml @ 25 mls/hr Q6H IV 02/10/25 15:30 02/12/25 15:09 25 MLS/HR Laboratory Results Laboratory Tests 02/11/25 11:28 Urinalysis Test 02/07/25 13:21 Urine Color Yellow (Yellow) Urine Clarity Clear (Clear) Urine pH 5.5 (5.0-9.0) Urine Specific [place] 1.031 (1.001-1.035) Urine Protein Negative (Negative) Urine Ketones 3+ (Negative) H Urine Blood Negative /uL (Negative) Urine Nitrite Negative (Negative) Urine Bilirubin Negative (Negative) Urine Urobilinogen Normal mg/dL (Negative) Urine Leukocyte Esterase Negative /uL (Negative) Urine RBC None seen /hpf (0 - 3) Urine Microscopic WBC < 1 /HPF (0-3) Urine Squamous Epithelial Cells None seen /hpf (<5) Urine Bacteria None seen /hpf (None Seen) Urine Glucose 4+ mg/dL (Normal) H Microbiology Microbiology Date/Time Source Procedure Growth Status 02/08/25 13:05 Foot Left Gram Stain - Final Resulted 02/08/25 13:05 Foot Left Anaerobic Culture - Preliminary Resulted 02/08/25 13:05 Foot Left Aerobic Culture - Final Resulted 02/07/25 13:21 Voided Urine Urine Culture - Final Complete 02/06/25 17:43 Blood Blood Culture - Final NO GROWTH AFTER 5 DAYS OF INCUBATION. Complete Assessment/Plan Assessment/Plan Sepsis likely due to left foot cellulitis Acute Left foot cellulitis. S/P incision and drainage 02/08/2025 Acute Osteomylittis of the second toe ( MRI Osteomyelitis in the 2nd proximal and middle phalanx) Bluish discoloration change in the left 3rd toe; Arterial doppler: 20-49% stenosis of the left distal superficial femoral artery based on peak systolic velocity criteria. PAD left leg Diabetes mellitus type2 HGB A1c 8.2 Diabetic neuropathy Negative for DVT Leukocytosis Left distal superficial femoral artery stenosis Wound culture grew Pseudomonas aeruginosa Plan Zosyn Mild insulin sliding scale Pain medication and other PRN Zofran Lantus 22 daily here Continue home medications For subsequent incision and drainageAnd closure on Friday02/14/2025 - patient we will be NPO on Friday night Plan discussed with: Patient Date of Service: February 12, 2025 Billing Provider: PEDRO LEE MD Common Visit Codes: [id number] INP/OBS CARE(HIGH) PEDRO LEE MD February 12, 2025 18:43
[2025-02-12] MEDS: MELATONIN 5 MG TAB PO SCH (22:17)
[2025-02-13 01:00] VITALS: BP_SYST 101; BP_SYST 105; BP_DIAS 54; BP_DIAS 70; PULSE 69; PULSE 93; RESP 16; RESP 18; TEMP 98.1; TEMP 98.3; O2SAT 97; O2SAT 98
[2025-02-13 05:00] VITALS: BP 109/68; PULSE 73; RESP 16; TEMP 98.1; O2SAT 97
[2025-02-13 08:43] VITALS: BP 130/86; PULSE 78; RESP 20; TEMP 97.4; O2SAT 98
[2025-02-13 13:00] VITALS: BP 113/77; PULSE 77; RESP 18; TEMP 98.2; O2SAT 96
[2025-02-13 17:00] VITALS: BP 110/69; PULSE 86; RESP 20; TEMP 97.7; O2SAT 97
--- NOTE | 2025-02-13 17:53 | DVHPNRES ---
Progress Note Date Seen: Feb 13, 2025 Resident Creating Document: MADHU REID RESIDENT Has the PT tested + for MRSA If YES, has PT been informed?: No Medical Necessity Reason Pt with a Central, PICC or Fol: No Medical Necessity Reason 02/13 Patient is seen and examined today. He has no new complaints. Patient is scheduled to have read debridement of his left toe tomorrow by marine equipment test engineer. No new complaints; will monitor closely Subjective Review of Systems Constitutional: Denies fever no chills no feeling of malaise HEENT: Denies headache, ear pain, ear discharges, conjunctivitis, nasal discharge throat pain Cardiovascular: Denies chest pain, palpitation, orthopnea, PND, or pedal edema Respiratory: Denies shortness of breath, cough cough, sputum production, hemoptysis, GI: Denies abdominal pain, nausea, vomiting, diarrhea, hematemesis, hematochezia, : Denies frequency, urgency, hematuria, Endocrine: Denies unintentional weight gain or weight loss, feeling of hot flashes, Jose E: Denies easy bruising, bleeding disorders, epistaxis Musculoskeletal: Denies joint pains, muscle aches Psych: No evidence of depression, rhona, suicidal ideation Objective vital signs Vital Sign Date Time Temp Pulse Resp B/P (MAP) Pulse Ox O2 Delivery O2 Flow Rate FiO2 02/13/25 17:00 97.7 86 20 110/69 (83) 97 97.7 02/13/25 08:15 Room Air* 0 21 Total Intake and Output 02/12/25 02/12/25 02/13/25 15:00 23:00 07:00 Intake Total 200 ml 400 ml 1000 ml Output Total 600 ml Balance 200 ml 400 ml 400 ml medications Current Medications Medications Dose Ordered Sig/Sandra Route Start Time Stop Time Status Last Admin Dose Admin Sodium Chloride 10 ml Q8HR IV 02/06/25 22:00 02/13/25 15:50 10 ML Acetaminophen/ Hydrocodone Bitart 1 tab Q4HP PRN PO 02/06/25 20:45 02/13/25 09:52 1 TAB Ondansetron HCl 4 mg Q4HP PRN IV 02/06/25 20:45 02/06/25 21:06 4 MG Enoxaparin Sodium 40 mg DAILY SC 02/07/25 10:00 02/13/25 10:16 40 MG Acetaminophen 650 mg Q6HP PRN PO 02/06/25 20:45 02/11/25 16:13 650 MG Pantoprazole Sodium 40 mg DAILY IV 02/07/25 10:00 02/13/25 10:16 40 MG Diagnostic Test (Pha) 1 strip ACHS 02/06/25 22:00 02/13/25 17:00 1 STRIP Insulin Human Regular ACHS SC 02/06/25 22:00 02/13/25 17:37 8 UNITS Dextrose 50 ml UD PRN IV 02/06/25 21:00 Insulin Glargine 22 units DAILY@1000 SC 02/09/25 10:00 02/13/25 10:45 22 UNITS Piperacillin Sod/ Tazobactam Sod 100 ml @ 25 mls/hr Q6H IV 02/10/25 15:30 02/13/25 15:50 25 MLS/HR Melatonin 5 mg QHSP PO 02/12/25 22:00 02/12/25 22:17 5 MG Examination General Appearance: Alert, Oriented X3, Cooperative, No acute distress HEENT: Atraumatic, PERRLA, EOMI, Mucous membrane moist/pink Respiratory: Clear to auscultation, Normal air movement Cardiovascular: Regular rate, Normal S1, Normal S2, No murmurs, no chest wall tenderness Abdominal: NO distention, no tenderness, bowel sounds present, no scars noted Extremities: No clubbing, No cyanosis, No edema, Normal pulses, No tenderness/swelling; Left foot covered in bandage Skin: Right foot within normal limit. Left s/p I &d Neuro: Normal gait, Normal speech, Strength at 5/5 X4 ext, Normal tone, Sensation intact, Cranial nerves 3-12 NL, Reflexes 2+ Psych/Mental Status: Mental status NL, Mood NL laboratory and microbiology Laboratory Tests 02/11/25 11:28 Test 02/11/25 11:28 Range/Units Serum Glucose 162 H 74-106 mg/dL Microbiology Date/Time Source Procedure Growth Status 02/08/25 13:05 Foot Left Gram Stain - Final Resulted 02/08/25 13:05 Foot Left Anaerobic Culture - Preliminary Resulted 02/08/25 13:05 Foot Left Aerobic Culture - Final Resulted 02/07/25 13:21 Voided Urine Urine Culture - Final Complete 02/06/25 17:43 Blood Blood Culture - Final NO GROWTH AFTER 5 DAYS OF INCUBATION. 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 S/P incision and drainage 02/08/2025,02/10/2025 Acute Osteomyelitis of the second toe (MRI Osteomyelitis in the 2nd proximal and middle phalanx) Bluish discoloration change in the left 3rd toe; Arterial Doppler: 20-49% stenosis of the left distal superficial femoral artery based on peak systolic velocity criteria. PAD of left leg; not on aspirin due to recurrent surgical procedures Diabetes mellitus type 2 with A1c of 8.2% Diabetic neuropathy Leukocytosis due to sepsis Plan Zosyn Mild insulin sliding scale Pain medication and other PRN Zofran Lantus 22 daily here Continue home medications For subsequent incision and drainage And closure on Friday02/14/2025; patient will be NPO after Friday midnight Continue pain management Left distal superficial femoral artery stenosis Wound culture grew Pseudomonas aeruginosa DVTs ruled out Goal of care discussed for 20 minutes: Full code Case and plan discussed with Dr. Garcia Plan discussed with: Patient, Other (RN) Dietary Evaluation Review Comments: 1. CCHO 75gm diet 2. Sean 1 pk BID (ordered per ONS protocol) 3. Refer to CDE on DC 4. Continue current plan of care Expected Outcomes/Goals: wound to improve PO intake meets at least 75% estimated needs Fu 3-5 days Addendum Addendum Addendum I was physically present for the ortega portions of the service provided to patient by THE RESIDENT. I have reviewed the documentation, discussed the case with resident and agree with the resident's documentation except as noted. Also the patient's clinical case was discussed with the patient's nurse. This medical document was created using an electronic medical record system with computerized dictation system. Although this document has been carefully reviewed, there might still be some phonetic and typographical errors. These areas are purely typographical due to imperfections of the software programs, and do not reflect any compromise in the patient's medical care. Late signature. Date of Service: Feb 13, 2025 Billing Provider: JOE GARCIA MD Common Visit Codes: [id number] INP/OBS CARE(HIGH) Secondary Visit Codes: [id number] CARE PLAN 30 MINUTES (20 minutes) MADHU REID Feb 13, 2025 17:53 JOE GARCIA MD Feb 14, 2025 09:52
[2025-02-13 21:00] VITALS: BP 100/64; PULSE 84; RESP 18; TEMP 98.5; O2SAT 93
[2025-02-14 01:00] VITALS: BP 104/68; PULSE 79; RESP 16; TEMP 98.1; O2SAT 96
[2025-02-14 03:20] LABS: Urine Bacteria FEW /hpf (None Seen); Urine Blood Negative /uL (Negative); Urine Budding Yeast OCCASIONAL /hpf (None Seen); Urine Clarity Clear (Clear); Urine Color Light-Yellow (Yellow); Urine Protein, UAD Negative (Negative); Urine Specific Gravity 1.043 (1.001-1.035); Urine Sperm PRESENT /hpf (None Seen); Urine Squamous Epithelial Cell FEW /hpf (<5); Urine Urobilinogen Normal (Negative); Urine WBC < 1 /HPF (0-3); Urine pH 5.5 (5.0-9.0)
[2025-02-14 05:00] VITALS: BP 126/82; PULSE 78; RESP 18; TEMP 98.1; O2SAT 98
--- NOTE | 2025-02-14 06:33 | DVH ---
EXAM: XR Chest, 1 View CLINICAL INDICATION: Procedure TECHNIQUE: Frontal view of the chest. COMPARISON: XY CHEST XRAY 1 VIEW on DOS: 02/06/25, XY CHEST PORTABLE on DOS: 07/17/24, XY CHEST EDITH BLE on DOS: 07/16/24, XY CHEST PORTABLE on DOS: 07/15/24, XY CHEST PORTABLE on DOS: 07/13/24 FINDINGS: LUNGS AND PLEURAL SPACES: Unremarkable. No consolidation. No pneumothorax. HEART: Unremarkable. No cardiomegaly. MEDIASTINUM: Unremarkable. Normal mediastinal contour. BONES/JOINTS: Unremarkable. No acute fracture. OTHER FINDINGS: . IMPRESSION: No acute cardiopulmonary process.
[2025-02-14 07:21] LABS: Basophils # (auto) 0 10 ^3/uL (0-0.2); Basophils % (auto) 0.4 % (0.0-2.0); Eosinophils # (auto) 0.1 10 ^3/uL (0-0.8); Eosinophils % (auto) 1.1 % (0.0-7.0); Hematocrit 36.7 % (41.0-53.0); Hemoglobin 12.1 g/dL (13.5-17.5); Lymphocytes % (auto) 23.4 % (10.0-50.0); Mean Corpuscular Hemoglobin 28.8 pg (28.0-32.0); Mean Corpuscular Hgb Conc. 33.1 g/dL (32.0-36.0); Mean Corpuscular Volume 86.8 fL (80.0-100.0); Monocytes # (auto) 0.4 10 ^3/uL (0-1.3); Neutrophils # (auto) 6.2 10 ^3/uL (1.6-8.6); Neutrophils % (auto) 70.1 % (37.0-80.0); Nucleated Red Blood Cells % 0.1 %; Platelet Count (auto) 444 10^3/uL (140-450); Red Blood Cells 4.22 10^6/uL (4.5-5.90); Red Cell Distribution Width 15.4 % (11.8-14.3); White Blood Cell 8.8 10^3/uL (4.4-10.8)
[2025-02-14 07:26] LABS: Chloride 106 mmol/L (98-107)
[2025-02-14 07:27] LABS: Anion Gap 6 (5-15); Carbon Dioxide 27 mmol/L (20-31); Potassium 3.7 mmol/L (3.5-5.1); Sodium 139 mmol/L (136-145)
[2025-02-14 07:28] LABS: Calcium 9.6 mg/dL (8.7-10.4)
[2025-02-14 07:33] LABS: BUN/Creatinine Ratio 23.3 (10.0-20.0); Blood Urea Nitrogen 21 mg/dL (9-23)
[2025-02-14 07:34] LABS: Glucose 109 mg/dL (74-106); INR 0.93 (0.9-1.15); Partial Thromboplastin Time 32.2 SEC (24.5-34.5); Prothrombin Time 9.9 sec (9.3-11.8)
[2025-02-14 09:00] VITALS: BP 97/58; PULSE 71; RESP 16; TEMP 97.9; O2SAT 96
[2025-02-14 13:00] VITALS: BP 119/74; PULSE 77; RESP 18; TEMP 98.4; O2SAT 96
--- NOTE | 2025-02-14 13:34 | DVHPN2 ---
Subjective Patient is 49 years old male with past medical history of diabetes mellitus came with a complaint of left foot wound. As per patient he has been having left foot wound for last 1 week, it started with the left foot swelling and erythema gradually got worse and starting having skin color changes especially on the 3rd toe on the left. Patient also having some discharge from the left foot for the same duration. Patient denied any pain. As per patient he was wearing the same shoes that was putting pressure of the left foot but never change it. Patient denied any chest pain or shortness of breath, dysuria, acute joint redness to other joint. Initial lab workup revealed leukocytosis WBC 18.2, neutrophil 85.5, ESR 50, sodium 133, HGB A1c 8.2. CT left foot significant for cellulitis. Soft tissue gas is seen between the 2nd and 3rd digits suggestive of infectious / inflammatory process. Fat stranding and phlegmonous changes are seen throughout the left foot which likely reflects sequelae of cellulitis. Changes from previous H/P or p: No Changes Objective Vitals Vital Signs Date Time Temp Pulse Resp B/P (MAP) Pulse Ox O2 Delivery O2 Flow Rate FiO2 02/14/25 09:00 97.9 71 16 97/58 (71) 96 97.9 02/14/25 08:05 Room Air* 0 21 Intake/Output Intake and Output 02/14/25 07:00 Intake Total 1945 ml Output Total 500 ml Balance 1445 ml Intake Oral 1745 ml IV Total 200 ml Output Urine Total 500 ml # Voids 2 # Bowel Movements 2 Exam Dermatological: Skin is dry with mild erythema and some maceration around the wound site No gross deformities noted Mild non-pitting edema present bilaterally Left foot area of fluctuance with erythema and malodor Vascular: Dorsalis pedis and posterior tibial pulses are 1+ bilaterally Capillary refill is under 2 seconds Skin temperature is warm bilaterally Neurologic: Protective sensation is absent on the plantar forefoot bilaterally Monofilament testing reveals decreased sensation in multiple plantar sites Musculoskeletal: Range of motion at the ankle and MTP joints is within normal limits. Strength is 5/5 in all tested muscle groups. Gait is antalgic due to offloading of the affected limb. General Appearance: Alert, Oriented X3 Lungs: Clear to auscultation Cardiovascular: Regular rate, Normal S1, Normal S2 Medications Current Medications Medications Dose Ordered Sig/Sandra Route Start Time Stop Time Status Last Admin Dose Admin Sodium Chloride 10 ml Q8HR IV 02/06/25 22:00 02/14/25 02:43 10 ML Acetaminophen/ Hydrocodone Bitart 1 tab Q4HP PRN PO 02/06/25 20:45 02/14/25 06:57 1 TAB Ondansetron HCl 4 mg Q4HP PRN IV 02/06/25 20:45 02/06/25 21:06 4 MG Enoxaparin Sodium 40 mg DAILY SC 02/07/25 10:00 02/13/25 10:16 40 MG Acetaminophen 650 mg Q6HP PRN PO 02/06/25 20:45 02/11/25 16:13 650 MG Pantoprazole Sodium 40 mg DAILY IV 02/07/25 10:00 02/14/25 09:06 40 MG Diagnostic Test (Pha) 1 strip ACHS 02/06/25 22:00 02/14/25 11:43 1 STRIP Insulin Human Regular ACHS SC 02/06/25 22:00 02/13/25 22:03 8 UNITS Dextrose 50 ml UD PRN IV 02/06/25 21:00 Insulin Glargine 22 units DAILY@1000 SC 02/09/25 10:00 02/13/25 10:45 22 UNITS Piperacillin Sod/ Tazobactam Sod 100 ml @ 25 mls/hr Q6H IV 02/10/25 15:30 02/14/25 09:06 25 MLS/HR Melatonin 5 mg QHSP PO 02/12/25 22:00 02/13/25 22:09 5 MG Laboratory Results Laboratory Tests 02/14/25 07:02 Chemistry Test 02/14/25 07:02 Calcium Level 9.6 mg/dL (8.7-10.4) Coagulation Test 02/14/25 07:02 Prothrombin Time 9.9 sec (9.3-11.8) Prothrombin Time INR 0.93 (0.9-1.15) Activated Partial Thromboplast Time 32.2 SEC (24.5-34.5) Urinalysis Test 02/14/25 02:40 Urine Color Light-yellow (Yellow) Urine Clarity Clear (Clear) Urine pH 5.5 (5.0-9.0) Urine Specific [place] 1.043 (1.001-1.035) Urine Protein Negative (Negative) Urine Ketones Negative (Negative) Urine Blood Negative /uL (Negative) Urine Nitrite Negative (Negative) Urine Bilirubin Negative (Negative) Urine Urobilinogen Normal mg/dL (Negative) Urine Leukocyte Esterase Negative /uL (Negative) Urine RBC 1 /hpf (0 - 3) Urine Microscopic WBC < 1 /HPF (0-3) Urine Squamous Epithelial Cells Few /hpf (<5) Urine Bacteria Few /hpf (None Seen) H Urine Yeast (Budding) Occasional /hpf (None Urine Sperm Present /hpf (None Seen) Urine Glucose 4+ mg/dL (Normal) H Microbiology Microbiology Date/Time Source Procedure Growth Status 02/08/25 13:05 Foot Left Gram Stain - Final Resulted 02/08/25 13:05 Foot Left Anaerobic Culture - Preliminary Resulted 02/08/25 13:05 Foot Left Aerobic Culture - Final Resulted 02/07/25 13:21 Voided Urine Urine Culture - Final Complete 02/06/25 17:43 Blood Blood Culture - Final NO GROWTH AFTER 5 DAYS OF INCUBATION. Complete Assessment/Plan Assessment/Plan ASSESSMENT: Patient is a 49 year old seen on the floor follow up s/p foot I&D PLAN: - The patients chart was reviewed, clinical findings were discussed with the patient, the etiologies of the conditions were discussed in detail, and a treatment plan was agreed to at this time, with both oral and written instructions provided. - reviewed advanced imaging - reviewed all of the labs and pathology - discussed plan is to perform a subsequent incision and drainageAnd closure on today - patient has been NPO since friday - take him to the OR today - it was determined that multiple I&Ds will be necessary to save the limb - can weightbear as tolerated in postoperative shoe All questions were answered and concerns addressed to the patient's satisfaction. The patient was given the phone number to the clinic and was told how to make contact with the clinic should any concerns or questions arise. Patient understands that if any questions or concerns arise prior to the next appointment, we should be contacted immediately. FOLLOW-UP: Continue to follow while inpatient Plan discussed with: Patient My Orders Orders - DEDE DE LEÓN DPM Procedure Category Date Status Time Npo (Nothing By DIET 02/14/25 Transmitted Mouth) Diet Breakfast Obtain Consent For: ORDERS 02/13/25 Transmitted 20:29 Problem List: (1) Cellulitis of left foot (2) Projectile vomiting (3) Electrolyte imbalance (4) Acute respiratory distress (5) Hypotension (6) Diabetic keto-acidosis (7) Nausea & vomiting (8) Disorientation, unspecified (9) DKA, type 2, not at goal (10) Acute renal injury (11) AMS (altered mental status) (12) Gas gangrene (13) Osteomyelitis (14) Necrotizing soft tissue infection Date of Service: Feb 14, 2025 Billing Provider: DEDE DE LEÓN DPM Common Visit Codes: [id number] INP/OBS CARE(HIGH) DEDE DE LEÓN DPM Feb 14, 2025 13:34
[2025-02-14] MEDS ORDERED: BUPIVACAINE 0.5% P/F INJ 10 ML VIAL ONE (13:55)
[2025-02-14] MEDS ORDERED: MIDAZOLAM HCL 2MG/2ML 2ml VIAL (1mg/ml) ONE (14:03)
[2025-02-14] MEDS ORDERED: fentaNYL CITRATE 100 MCG/2 ML VL ONE (14:03)
[2025-02-14] MEDS ORDERED: PROPOFOL 10 MG/ML 20 ML IV ONE (14:03)
[2025-02-14] MEDS ORDERED: ONDANSETRON HCL 4 MG/2 ML VIAL ONE (14:04)
[2025-02-14] MEDS ORDERED: METOCLOPRAMIDE HCL 5MG/ml INJ 2ml VIAL ONE (14:04)
[2025-02-14] MEDS ORDERED: VANCOMYCIN HCL 1000 MG VL ONE (14:26)
--- NOTE | 2025-02-14 14:34 | DVHOP2 ---
Operative Report - 2 Report Details Date: 02/14/25 Preop Diagnosis: 1. Left foot osteomyelitis 2. Left foot abscess 3. Left foot gas gangrene 4. Left foot cellulitis Postop Diagnosis: Same as preop Surgeon: Dede De León MD Anesthesiologist: See anesthesia Anesthesia: Mac Consent: The patient was informed of the risks and benefits of the procedure. These include but are not limited to complications of anesthesia, postoperative infection, incomplete relief of symptoms, recurrence of symptoms, damage to blood vessels, nerves and tendons, deep venous thrombosis, pulmonary embolism and possible need for repeat surgery in the future. Complications: None Estimated Blood Loss: Minimal Fluids: See anesthesia Findings: Consistent with diagnosis Indications for Surgery: Worsening left foot wound Name of Procedure Performed 1. Left foot I&D to bone third middle foot (44055) 2. Left foot I&D to bone second middle foot (49766) 3. Left foot delayed closure (35004) Procedure Details Procedure Details: PRE-PROCEDURE INFORMATION: In the pre-op holding area, the extremity to be operated on was clearly marked and the patient verified correct laterality of the marking. The patient was transferred to the OR table and placed in a supine position. A timeout was performed in which identification of the correct patient, procedure, location, and materials was done. The left foot and leg were prepped and draped in normal sterile fashion. DESCRIPTION OF PROCEDURE: Attention was directed to the left 1st interspace where previous incision was made. An incision was made over this area and was deepened through blunt dissection. The incision was deepened to the level of abscess and bone. Care was taken to the dissection to avoid any neurovascular and tendinous structures. The incision was deepened to the bone, and the abscess appeared to be purulent fluid consistent with pus. The cortices of the bone was then removed with rongeur an all necrotic tissue. After the abscess was drained, the area was irrigated with 3 L normal saline using cysto tubing. A delayed closure was then performed using 2-0 nylon after was deemed appropriate with no longer concern for infection. Attention was directed to the left 3rd interspace where previous incision was made. An incision was made over this area and was deepened through blunt dissection. The incision was deepened to the level of abscess and bone. Care was taken to the dissection to avoid any neurovascular and tendinous structures. The incision was deepened to the bone, and the abscess appeared to be purulent fluid consistent with pus. The cortices of the bone was then removed with rongeur an all necrotic tissue. After the abscess was drained, the area was irrigated with 3 L normal saline using cysto tubing. The area was then inspected and any areas of tracking, especially along the tendons were also drained. A delayed closure was then performed using 2-0 nylon after was deemed appropriate with no longer concern for infection. POSTOPERATIVE INFORMATION: The patient tolerated the above noted procedure and anesthesia well and was transferred to the PACU with vital signs stable, and vascular status intact with capillary refill intact to all digits. Patient will return to the floor and continue IV antibiotics. Patient will need 6 weeks IV antibiotics. Patient should have dressings changed every other day with Betadine-soaked gauze, Kerlix, Vinicius. Recommend patient's home health come out to change it. Patient will follow up with me in a week. Specimen: Left 2nd metatarsal Condition Good Disposition Home DEDE DE LEÓN DPM Feb 14, 2025 14:34
[2025-02-14] MEDS ORDERED: PHENYLEPHRINE HCL 10 MG/ML VL IV PRN (14:45)
[2025-02-14] MEDS ORDERED: ePHEDrine SULFATE 50 MG/ML AMP IV PRN (15:00)
[2025-02-14] MEDS ORDERED: HYDROmorphone HCL 2 MG/ML VL/or syr IV PRN (15:00)
[2025-02-14] MEDS ORDERED: ONDANSETRON HCL 4 MG/2 ML VIAL IV ONE (15:00)
[2025-02-14] MEDS ORDERED: METOCLOPRAMIDE HCL 5MG/ml INJ 2ml VIAL IV ONE (15:00)
[2025-02-14 16:52] VITALS: BP 139/79; PULSE 83; RESP 18; TEMP 97.6; O2SAT 97
--- NOTE | 2025-02-14 18:43 | DVHPNRES ---
Progress Note Date Seen: Feb 14, 2025 Resident Creating Document: MAXIMILIANO AVILA LAMAR Has the PT tested + for MRSA If YES, has PT been informed?: No Medical Necessity Reason Pt with a Central, PICC or Fol: No Subjective Review of Systems Insulin examined at bedside. Patient is feeling better since admission Patient reports: No new complaints, Feels better Changes from previous H/P or p: Changes Objective vital signs Vital Sign Date Time Temp Pulse Resp B/P (MAP) Pulse Ox O2 Delivery O2 Flow Rate FiO2 02/14/25 16:52 97.6 83 18 139/79 (99) 97 97.6 02/14/25 14:40 Room Air 02/14/25 14:35 8.0 02/14/25 08:05 21 Total Intake and Output 02/13/25 02/13/25 02/14/25 15:00 23:00 07:00 Intake Total 1195 ml 750 ml Output Total 500 ml Balance 1195 ml 250 ml medications Current Medications Medications Dose Ordered Sig/Sandra Route Start Time Stop Time Status Last Admin Dose Admin Sodium Chloride 10 ml Q8HR IV 02/06/25 22:00 02/14/25 02:43 10 ML Acetaminophen/ Hydrocodone Bitart 1 tab Q4HP PRN PO 02/06/25 20:45 02/14/25 06:57 1 TAB Ondansetron HCl 4 mg Q4HP PRN IV 02/06/25 20:45 02/06/25 21:06 4 MG Enoxaparin Sodium 40 mg DAILY SC 02/07/25 10:00 02/13/25 10:16 40 MG Acetaminophen 650 mg Q6HP PRN PO 02/06/25 20:45 02/11/25 16:13 650 MG Pantoprazole Sodium 40 mg DAILY IV 02/07/25 10:00 02/14/25 09:06 40 MG Diagnostic Test (Pha) 1 strip ACHS 02/06/25 22:00 02/14/25 17:17 1 STRIP Insulin Human Regular ACHS SC 02/06/25 22:00 02/13/25 22:03 8 UNITS Dextrose 50 ml UD PRN IV 02/06/25 21:00 Insulin Glargine 22 units DAILY@1000 SC 02/09/25 10:00 02/13/25 10:45 22 UNITS Piperacillin Sod/ Tazobactam Sod 100 ml @ 25 mls/hr Q6H IV 02/10/25 15:30 02/14/25 16:09 25 MLS/HR Melatonin 5 mg QHSP PO 02/12/25 22:00 02/13/25 22:09 5 MG Phenylephrine HCl 0.1 mg [id number] PRN IV 02/14/25 14:45 02/14/25 18:00 Examination General Appearance: Alert, Oriented X3, Cooperative, No acute distress HEENT: Atraumatic, PERRLA, EOMI, Mucous membrane moist/pink Respiratory: Clear to auscultation, Normal air movement Cardiovascular: Regular rate, Normal S1, Normal S2, No murmurs, no chest wall tenderness Abdominal: Normal bowel sounds, Soft, No tenderness, No hepatospenomegaly, No masses Extremities: No clubbing, No cyanosis, No edema, Normal pulses, No tenderness/swelling Skin: No rashes, No breakdown, No significant lesion Neuro: Normal gait, Normal speech, Strength at 5/5 X4 ext, Normal tone, Sensation intact, Cranial nerves 3-12 NL, Reflexes 2+ Psych/Mental Status: Mental status NL, Mood NL laboratory and microbiology Laboratory Tests 02/14/25 07:02 Test 02/14/25 07:02 Range/Units Serum Glucose 109 H 74-106 mg/dL Microbiology Date/Time Source Procedure Growth Status 02/08/25 13:05 Foot Left Gram Stain - Final Resulted 02/08/25 13:05 Foot Left Anaerobic Culture - Preliminary Resulted 02/08/25 13:05 Foot Left Aerobic Culture - Final Resulted 02/07/25 13:21 Voided Urine Urine Culture - Final Complete 02/06/25 17:43 Blood Blood Culture - Final NO GROWTH AFTER 5 DAYS OF INCUBATION. 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 S/P incision and drainage 02/08/2025,02/10/2025 Acute Osteomyelitis of the second toe (MRI Osteomyelitis in the 2nd proximal and middle phalanx) Bluish discoloration change in the left 3rd toe; Arterial Doppler: 20-49% stenosis of the left distal superficial femoral artery based on peak systolic velocity criteria. PAD of left leg; not on aspirin due to recurrent surgical procedures Diabetes mellitus type 2 with A1c of 8.2% Diabetic neuropathy Leukocytosis due to sepsis Plan Zosyn Mild insulin sliding scale Pain medication and other PRN Zofran Lantus 22 daily here Continue home medications For subsequent incision and drainage And closure performed today Continue pain management Left distal superficial femoral artery stenosis Wound culture grew Pseudomonas aeruginosa DVTs ruled out Goal of care discussed for 20 minutes: Full code Case and plan discussed with Dr. Flynn Plan discussed with: Patient, Spouse, Other (RN) My Orders My Orders Orders - MAXIMILIANO AVILA RESDIFANNY Procedure Category Date Status Time * Picc Line Consult CONS 02/14/25 Transmitted 14:14 * Oil Well Gun Perforator Operator CONS 02/14/25 Transmitted Consult Complete Blood Count LAB 02/15/25 Verified 04:00 Comprehensive LAB 02/15/25 Verified Metabolic Panel 04:00 Consistent DIET 02/14/25 Transmitted Carb(Ccho)Diabetes Dinner Dietary Evaluation Review Comments: 1. CCHO 75gm diet 2. Sean 1 pk BID (ordered per [facility]NS protocol) 3. Refer to CDE on DC 4. Continue current plan of care Expected Outcomes/Goals: wound to improve PO intake meets at least 75% estimated needs Fu 3-5 days Date of Service: Feb 14, 2025 Billing Provider: AIDAN FLYNN MD Common Visit Codes: [id number] INP/OBS CARE(HIGH) MAXIMILIANO AVILA RESDIENT Feb 14, 2025 18:43 AIDAN FLYNN MD Feb 15, 2025 09:21
[2025-02-14 21:00] VITALS: BP 122/75; PULSE 87; RESP 20; TEMP 97.7; O2SAT 98
[2025-02-15 05:00] VITALS: BP 107/69; PULSE 73; RESP 19; TEMP 97.6; O2SAT 97
[2025-02-15 07:39] LABS: Basophils # (auto) 0 10 ^3/uL (0-0.2); Basophils % (auto) 0.3 % (0.0-2.0); Eosinophils # (auto) 0.1 10 ^3/uL (0-0.8); Eosinophils % (auto) 0.7 % (0.0-7.0); Hematocrit 37.4 % (41.0-53.0); Hemoglobin 12.4 g/dL (13.5-17.5); Lymphocytes # (auto) 1.4 10 ^3/uL (0.4-5.4); Lymphocytes % (auto) 16.8 % (10.0-50.0); Mean Corpuscular Hemoglobin 29.2 pg (28.0-32.0); Mean Corpuscular Hgb Conc. 33.3 g/dL (32.0-36.0); Mean Corpuscular Volume 87.7 fL (80.0-100.0); Monocytes # (auto) 0.3 10 ^3/uL (0-1.3); Monocytes % (auto) 3.8 % (0.0-12.0); Neutrophils # (auto) 6.3 10 ^3/uL (1.6-8.6); Neutrophils % (auto) 78.4 % (37.0-80.0); Platelet Count (auto) 440 10^3/uL (140-450); Red Blood Cells 4.26 10^6/uL (4.5-5.90); White Blood Cell 8.1 10^3/uL (4.4-10.8)
[2025-02-15 07:56] LABS: Alanine Aminotransferase 14 U/L (7-40); Albumin 3.6 g/dL (3.2-4.8); Anion Gap 7 (5-15); BUN/Creatinine Ratio 20.8 (10.0-20.0); Blood Urea Nitrogen 15 mg/dL (9-23); Calcium 9.4 mg/dL (8.7-10.4); Carbon Dioxide 26 mmol/L (20-31); Potassium 4.4 mmol/L (3.5-5.1); Sodium 141 mmol/L (136-145); Total Protein 6.7 g/dL (5.7-8.2)
[2025-02-15 08:00] VITALS: PULSE 81; RESP 18; O2SAT 96
[2025-02-15 08:00] LABS: Aspartate Aminotransferase 12 U/L (13-40); Bilirubin, Total 0.2 mg/dL (0.2-1.0); Chloride 108 mmol/L (98-107)
[2025-02-15 08:04] LABS: Alkaline Phosphatase 64 U/L (46-116)
[2025-02-15 08:45] LABS: Glucose 125 mg/dL (74-106)
[2025-02-15 08:52] VITALS: BP 100/65; PULSE 81; RESP 18; TEMP 96.6; O2SAT 98
[2025-02-15] MEDS ORDERED: PHENYLEPHRINE HCL 10 MG/ML VL IV ONE (10:00)
[2025-02-15 12:36] VITALS: BP 109/73; PULSE 88; RESP 20; TEMP 97; O2SAT 97
[2025-02-15] MEDS ORDERED: BACDST PO (15:21)
--- NOTE | 2025-02-15 16:28 | DVHDSRES ---
Discharge Summary Date of Admission Resident Creating Document: JAZMINE SEGOVIA RESDIENT February 06, 2025 at 20:40 Date of Discharge: Feb 15, 2025 Admitting Diagnosis Diabetic foot Labs/Diagnostic Data: Laboratory Results Test 02/15/25 11:08 02/15/25 06:30 02/14/25 07:02 02/14/25 02:40 POC Glucose 166 mg/dl (70-106) White Blood Count 8.1 10^3/uL (4.4-10.8) Red Blood Count 4.26 10^6/uL (4.5-5.90) Hemoglobin 12.4 g/dL (13.5-17.5) Hematocrit 37.4 % (41.0-53.0) Mean Corpuscular Volume 87.7 fL (80.0-100.0) Mean Corpuscular Hemoglobin 29.2 pg (28.0-32.0) Mean Corpuscular Hemoglobin Concent 33.3 g/dL (32.0-36.0) Red Cell Distribution Width 16.0 % (11.8-14.3) Platelet Count 440 10^3/uL (140-450) Mean Platelet Volume 7.0 fL (6.9-10.8) Neutrophils (%) (Auto) 78.4 % (37.0-80.0) Lymphocytes (%) (Auto) 16.8 % (10.0-50.0) Monocytes (%) (Auto) 3.8 % (0.0-12.0) Eosinophils (%) (Auto) 0.7 % (0.0-7.0) Basophils (%) (Auto) 0.3 % (0.0-2.0) Neutrophils # (Auto) 6.3 10 ^3/uL (1.6-8.6) Lymphocytes # (Auto) 1.4 10 ^3/uL (0.4-5.4) Monocytes # (Auto) 0.3 10 ^3/uL (0-1.3) Eosinophils # (Auto) 0.1 10 ^3/uL (0-0.8) Basophils # (Auto) 0 10 ^3/uL (0-0.2) Nucleated Red Blood Cells 0.0 % Sodium Level 141 mmol/L (136-145) Potassium Level 4.4 mmol/L (3.5-5.1) Chloride Level 108 mmol/L (98-107) Carbon Dioxide Level 26 mmol/L (20-31) Anion Gap 7 (5-15) Blood Urea Nitrogen 15 mg/dL (9-23) Creatinine 0.72 mg/dL (0.700-1.30) Glomerular Filtration Rate Calc 112 mL/min (>90) BUN/Creatinine Ratio 20.8 (10.0-20.0) Serum Glucose 125 mg/dL (74-106) Calcium Level 9.4 mg/dL (8.7-10.4) Total Bilirubin 0.2 mg/dL (0.2-1.0) Aspartate Amino Transferase (AST) 12 U/L (13-40) Alanine Aminotransferase (ALT) 14 U/L (7-40) Alkaline Phosphatase 64 U/L (46-116) Total Protein 6.7 g/dL (5.7-8.2) Albumin 3.6 g/dL (3.2-4.8) Prothrombin Time 9.9 sec (9.3-11.8) Prothrombin Time INR 0.93 (0.9-1.15) Activated Partial Thromboplast Time 32.2 SEC (24.5-34.5) Urine Color Light-yellow (Yellow) Urine Clarity Clear (Clear) Urine pH 5.5 (5.0-9.0) Urine Specific [place] 1.043 (1.001-1.035) Urine Protein Negative (Negative) Urine Ketones Negative (Negative) Urine Blood Negative /uL (Negative) Urine Nitrite Negative (Negative) Urine Bilirubin Negative (Negative) Urine Urobilinogen Normal mg/dL (Negative) Urine Leukocyte Esterase Negative /uL (Negative) Urine RBC 1 /hpf (0 - 3) Urine Microscopic WBC < 1 /HPF (0-3) Urine Squamous Epithelial Cells Few /hpf (<5) Urine Bacteria Few /hpf (None Seen) Urine Yeast (Budding) Occasional /hpf (None Urine Sperm Present /hpf (None Seen) Urine Glucose 4+ mg/dL (Normal) Test 02/10/25 10:19 02/08/25 05:36 02/07/25 22:40 02/07/25 13:21 Vancomycin Level Trough 10.0 ug/mL (5-10) Hepatitis B Surface Antigen Negative (Negative) Hepatitis C Antibody Negative (Negative) Influenza Type A Antigen Negative (Negative) Influenza Type B Antigen Negative (Negative) SARS-CoV-2 Antigen (Rapid) Negative (NEGATIVE) Urine Opiates Screen Neg (NEGATIVE) Urine Fentanyl Screen Neg (NEGATIVE) Urine Barbiturates Screen Neg (NEGATIVE) Urine Phencyclidine Screen Neg (NEGATIVE) Urine Amphetamines Screen Neg (NEGATIVE) Urine Benzodiazepines Screen Neg (NEGATIVE) Urine Cocaine Screen Neg (NEGATIVE) Urine Cannabinoids Screen Neg (NEGATIVE) Test 02/07/25 04:46 02/06/25 20:55 02/06/25 17:33 Hemoglobin A1c 8.2 % A1C (<5.7) Magnesium Level 2.3 mg/dL (1.6-2.6) C-Reactive Protein High Sensitivity 15.84 mg/dL (<1.0) Vitamin B12 Level 386 pg/mL (211-911) Vitamin D 25-Hydroxy 35.1 ng/mL (30.0-100) Folic Acid 18.38 ng/mL (>5.38) Thyroid Stimulating Hormone (TSH) 1.15 uIU/mL (0.55-4.78) Erythrocyte Sedimentation Rate 50 mm/hr (0-20) Lactic Acid Level 1.3 mmol/L (0.4-2.0) Plasma/Serum Blood Alcohol < 3.0 mg/dL (<10) Other Laboratory Tests 02/15/25 06:30 Brief Hx & Hospital Course: Patient is 49 years old male with past medical history of diabetes mellitus came with a complaint of left foot wound. As per patient he has been having left foot wound for last 1 week, it started with the left foot swelling and erythema gradually got worse and starting having skin color changes especially on the 3rd toe on the left. Patient also having some discharge from the left foot for the same duration. Patient denied any pain. As per patient he was wearing the same shoes that was putting pressure of the left foot but never change it. Patient denied any chest pain or shortness of breath, dysuria, acute joint redness to other joint. Initial lab workup revealed leukocytosis WBC 18.2, neutrophil 85.5, ESR 50, sodium 133, HGB A1c 8.2. CT left foot significant for cellulitis. Soft tissue gas is seen between the 2nd and 3rd digits suggestive of infectious / inflammatory process. Fat stranding and phlegmonous changes are seen throughout the left foot which likely reflects sequelae of cellulitis. Hospital course: The patient was admitted on the line of diabetic/osteomyelitis. MRI was performed, showed osteomyelitis. The patient was started on empiric antibiotic of vancomycin and Zosyn. Podiatry was consulted and the patient underwent 3 subsequent incision and drainage. Wound culture showed Pseudomonas, subsequently antibiotic were tailored to Zosyn. Doppler ultrasound of lower limb was done, showed no DVT. Duplex scan of lower extremity artery was performed and showed no significant peripheral artery disease. For the diabetes control during hospital the patient patient the patient was given insulin. On 02/15/2025, the patient was feeling better since admission. Discharge plan discussed with the patient and the patient discharged home with home health care. Discharge plan: Injection Zosyn 3 times daily for 6 weeks for the osteomyelitis through the PICC line, home health care has been arranged to give the medicine at home Continue home meds Follow up with the PCP within 1 week of the discharge Follow up with the discharge Clinic within 1 week of the discharge Follow up with the Podiatry on outpatient basis. Operations or Procedures [facility] Operative Report - 2 Patient Name: Archie Lezama Unit Number: [id number] Date of : 1975 Patient Status: Admitted Inpatient Attending Doctor: Jazmine Segovia Resdient Operative Report - 2 Operative Report - 2 Report Details Date: 02/14/25 Preop Diagnosis: 1. Left foot osteomyelitis 2. Left foot abscess 3. Left foot gas gangrene 4. Left foot cellulitis Postop Diagnosis: Same as preop Surgeon: Everardo Salvador MD Anesthesiologist: See anesthesia Anesthesia: Mac Consent: The patient was informed of the risks and benefits of the procedure. These include but are not limited to complications of anesthesia, postoperative infection, incomplete relief of symptoms, recurrence of symptoms, damage to blood vessels, nerves and tendons, deep venous thrombosis, pulmonary embolism and possible need for repeat surgery in the future. Complications: None Estimated Blood Loss: Minimal Fluids: See anesthesia Findings: Consistent with diagnosis Indications for Surgery: Worsening left foot wound Name of Procedure Performed 1. Left foot I&D to bone third middle foot (86173) 2. Left foot I&D to bone second middle foot (34710) 3. Left foot delayed closure (64399) Procedure Details Procedure Details: PRE-PROCEDURE INFORMATION: In the pre-op holding area, the extremity to be operated on was clearly marked and the patient verified correct laterality of the marking. The patient was transferred to the OR table and placed in a supine position. A timeout was performed in which identification of the correct patient, procedure, location, and materials was done. The left foot and leg were prepped and draped in normal sterile fashion. DESCRIPTION OF PROCEDURE: Attention was directed to the left 1st interspace where previous incision was made. An incision was made over this area and was deepened through blunt dissection. The incision was deepened to the level of abscess and bone. Care was taken to the dissection to avoid any neurovascular and tendinous structures. The incision was deepened to the bone, and the abscess appeared to be purulent fluid consistent with pus. The cortices of the bone was then removed with rongeur an all necrotic tissue. After the abscess was drained, the area was irrigated with 3 L normal saline using cysto tubing. A delayed closure was then performed using 2-0 nylon after was deemed appropriate with no longer concern for infection. Attention was directed to the left 3rd interspace where previous incision was made. An incision was made over this area and was deepened through blunt dissection. The incision was deepened to the level of abscess and bone. Care was taken to the dissection to avoid any neurovascular and tendinous structures. The incision was deepened to the bone, and the abscess appeared to be purulent fluid consistent with pus. The cortices of the bone was then removed with rongeur an all necrotic tissue. After the abscess was drained, the area was irrigated with 3 L normal saline using cysto tubing. The area was then inspected and any areas of tracking, especially along the tendons were also drained. A delayed closure was then performed using 2-0 nylon after was deemed appropriate with no longer concern for infection. POSTOPERATIVE INFORMATION: The patient tolerated the above noted procedure and anesthesia well and was transferred to the PACU with vital signs stable, and vascular status intact with capillary refill intact to all digits. Patient will return to the floor and continue IV antibiotics. Patient will need 6 weeks IV antibiotics. Patient should have dressings changed every other day with Betadine-soaked gauze, Kerlix, Vinicius. Recommend patient's home health come out to change it. Patient will follow up with me in a week. Specimen: Left 2nd metatarsal Condition Good Disposition 2 Home EVERARDO SALVADOR [facility] Operative Report - 2 Patient Name: Archie Lezama Unit Number: [id number] Date of : 1975 Patient Status: Admitted Inpatient Attending Doctor: Jazmine Segovia Resdient Operative Report - 2 Operative Report - 2 Report Details Date: 02/10/25 Preop Diagnosis: 1. Left foot osteomyelitis 2. Left foot abscess 3. Left foot gas gangrene 4. Left foot cellulitis Postop Diagnosis: Same as preop Surgeon: Everardo Salvador MD Anesthesiologist: See anesthesia Anesthesia: Mac Consent: The patient was informed of the risks and benefits of the procedure. These include but are not limited to complications of anesthesia, postoperative infection, incomplete relief of symptoms, recurrence of symptoms, damage to blood vessels, nerves and tendons, deep venous thrombosis, pulmonary embolism and possible need for repeat surgery in the future. Complications: None Estimated Blood Loss: Minimal Fluids: See anesthesia Findings: Consistent with diagnosis Indications for Surgery: Worsening foot wound Name of Procedure Performed 1. Left foot I&D to bone third middle foot (36534) 2. Left foot I&D to bone second middle foot (19370) Procedure Details Procedure Details: PRE-PROCEDURE INFORMATION: In the pre-op holding area, the extremity to be operated on was clearly marked and the patient verified correct laterality of the marking. The patient was transferred to the OR table and placed in a supine position. A timeout was performed in which identification of the correct patient, procedure, location, and materials was done. The left foot and leg were prepped and draped in normal sterile fashion. DESCRIPTION OF PROCEDURE: Attention was directed to the left 1st interspace where previous incision was made. An incision was made over this area and was deepened through blunt dissection. The incision was deepened to the level of abscess and bone. Care was taken to the dissection to avoid any neurovascular and tendinous structures. The incision was deepened to the bone, and the abscess appeared to be purulent fluid consistent with pus. The cortices of the bone was then removed with rongeur an all necrotic tissue. After the abscess was drained, the area was irrigated with 3 L normal saline using cysto tubing. Deep cultures were then obtained from the wound. The area was then inspected and any areas of tracking, especially along the tendons were also drained. The wound was packed with Betadine-soaked gauze and we will need to be closed at a later date. Attention was directed to the left 3rd interspace where previous incision was made. An incision was made over this area and was deepened through blunt dissection. The incision was deepened to the level of abscess and bone. Care was taken to the dissection to avoid any neurovascular and tendinous structures. The incision was deepened to the bone, and the abscess appeared to be purulent fluid consistent with pus. The cortices of the bone was then removed with rongeur an all necrotic tissue. After the abscess was drained, the area was irrigated with 3 L normal saline using cysto tubing. The area was then inspected and any areas of tracking, especially along the tendons were also drained. The wound was packed with Betadine-soaked gauze and we will need to be closed at a later date. POSTOPERATIVE INFORMATION: The patient tolerated the above noted procedure and anesthesia well and was transferred to the PACU with vital signs stable, and vascular status intact with capillary refill intact to all digits. Will return to the floor and continue IV antibiotics. Patient will have to return to the OR for subsequent procedure in order to see if the left 3rd toe. Patient can have dressing changes every day with the weekend. With Betadine-soaked gauze Webril and Vinicius bandage lightly placed over the foot Specimen: Left 2nd metatarsal Condition Good Disposition 2 Still a Patient EVERARDO SALVADOR DPM February 10, 2025 11:37 Feb 14, 2025 14:34 Condition at Discharge: Good Final Diagnosis/Problems List Sepsis due to left foot cellulitis Acute Left foot cellulitis. Acute Osteomyelitis of the second toe Ruled out PUD Ruled out DVT Diabetes mellitus type 2 with A1c of 8.2% Diabetic neuropathy Leukocytosis due to sepsis Ruled out Acute respiratory distress Hypotension Ruled out Diabetic keto-acidosis Ruled out Disorientation/encephalopathy Ruled out Acute renal injury Ruled out Gas gangrene Ruled out Necrotizing soft tissue infection Discharge Disposition: Home Discharge Instruct/Medications Diet: Consistent carbohydrate Activity: No Restrictions, As Tolerated Follow Up/Referral: Follow up with the PCP within 1 week of the discharge. Follow up with the Podiatry on outpatient basis Follow up with the discharge Clinic within 1 week of the discharge Medications: Injection Zosyn 3.375 g 3 times daily for 6 week through PICC line Continue home meds Discharge Statement: "Patient was advised to return to the ER or call 911 if any headaches, dizziness, shortness of breath, chest pain, abdominal pain, bleeding, fevers, or worsening of medical condition. Patient was counseled about treatment plan, medications, possible side effects, patientverbalized understanding. All questions were answered to the best of my ability. This discharge took greater then 30 minutes in planning, reviewing documentation, counseling the patient, and discussing with other team members." ASSESSMENT ASSESSMENT Assessment Osteomyelitis Date of Service: Feb 15, 2025 Billing Provider: AIDAN FLYNN MD Common Visit Codes: 79113-DIB/OBS DISCH DAY >30min JAZMINE SEGOVIA RESDIENT Feb 15, 2025 16:28 AIDAN FLYNN MD Feb 16, 2025 11:15
[2025-02-15] MEDS ORDERED: SODIUM CHLOR 0.9% PF (SALINE LOCK) 10ML VIAL/SYR IV SCH (22:00)
== END 2025-02-15 17:30 | disposition home or self-care (01) | DRG 720 ==
LOC: ER 17:14 → OVERFLOW 20:40 → TELE-WESTW 02-07 22:00 → OVERFLOW 02-10 08:44 → WEST WING 02-10 08:53
PROVIDERS: ADMIT Student in an Organized Health Care Education/Training Program; ATTEND Emergency Medicine
PROC: 0Y9N0ZZ Drainage of Left Foot, Open Approach (ICD-10-PCS; 2025-02-08)
PROC: 0QBP0ZX Excision of Left Metatarsal, Open Approach, Diagnostic (ICD-10-PCS; principal; 2025-02-08 12:51)
PROC: 0Y9N0ZZ Drainage of Left Foot, Open Approach (ICD-10-PCS; 2025-02-10)
PROC: 0Y9N0ZZ Drainage of Left Foot, Open Approach (ICD-10-PCS; 2025-02-14)
PROC: 02HV33Z Insertion of Infusion Device into Superior Vena Cava, Percutaneous Approach (ICD-10-PCS; 2025-02-15)
PROC: B548ZZA Ultrasonography of Superior Vena Cava, Guidance (ICD-10-PCS; 2025-02-15)
DX: A41.52 Sepsis due to Pseudomonas (principal); E11.40 Type 2 diabetes mellitus with diabetic neuropathy, unspecified; E11.69 Type 2 diabetes mellitus with other specified complication; M86.172 Other acute osteomyelitis, left ankle and foot; L03.116 Cellulitis of left lower limb; L02.612 Cutaneous abscess of left foot; Z20.822 Contact with and (suspected) exposure to COVID-19; B96.5 Pseudomonas (aeruginosa) (mallei) (pseudomallei) as the cause of diseases classified elsewhere; I70.202 Unspecified atherosclerosis of native arteries of extremities, left leg; Z83.3 Family history of diabetes mellitus; Z79.891 Long term (current) use of opiate analgesic; Z79.899 Other long term (current) drug therapy; Z79.84 Long term (current) use of oral hypoglycemic drugs; Z79.4 Long term (current) use of insulin; Z79.1 Long term (current) use of non-steroidal anti-inflammatories (NSAID)
CPT/HCPCS: 36415; 36569; 71045; 73700; 73718; 76937; 80048; 80053; 80202; 80307; 80320; 81001; 82306; 82565; 82607; 82746; 82962; 83036; 83605; 83735; 84443; 85025; 85610; 85652; 85730; 86141; 86803; 86850; 86900; 86901; 87040; 87070; 87075; 87077; 87081; 87086; 87186; 87205; 87340; 87426; 87804; 93925; 93971; 96361; 96365; G0378; J0131; J1815; J2003; J2250; J2405; J2470; J2543; J2704; J3490